=== PATIENT | male | born 1975 | race Caucasian/White ===

== ENCOUNTER 2017-11-08 19:50 | Inpatient (IN) | payer OTHER ==
[~2017-11-08] VITALS: Ht 177.8 cm; Wt 63.4 kg
[2017-11-08 19:54] VITALS: BP 73/51; PULSE 82; RESP 22; O2SAT 100
[2017-11-08] MEDS ORDERED: ONDANSETRON HCL 4 MG/2 ML VIAL IV ONE (20:15)
[2017-11-08] MEDS ORDERED: SODIUM CHLOR 0.9% 1000 ML INJ 1,000 ML IV ONE ×7 (20:15→23:12)
--- NOTE | 2017-11-08 20:24 | PD ---
HPI Chief Complaint: GI Complaint Time Seen by Provider: 20:07 Travel History International Travel<30 days: No Contact w/Intl Traveler<30days: No History of Present Illness HPI The patient is a 41 year old male who presents to the [facility] emergency department with a history of difficulty walking, generalized weakness that began earlier today. The patient arrives out in triage with a blood pressure systolic in the 70s. The patient was emergently brought back. According to the patient's mother who the patient resides with the patient has not been well since July. She reports that he was seen at another emergency department related to back and hip pain at that time. The patient at that time was also diagnosed with a fecal impaction and severe constipation. He has been since then seen by a mold burner. He was placed on a bowel regimen to help with the constipation, however his mother reports that he's been having difficulty maintaining it. The patient since July has been incontinent of stool and intermittently incontinent of urine. The stool is brown in color. They deny any mucus or blood being in the stool. The patient unfortunately is a poor historian. The patient's history is obtained mainly from his mother. She reports that he has a history of being diagnosed with a nerve problem involving the right leg. She reports that she was told that this stems from his back. She reports that today he's had increasing pain down into his right leg. She reports that since Tuesday he has had swelling of the right leg. He reports having abdominal pain down in bilateral lower quadrants of the abdomen. He reports having nausea. They deny him having any known recent fevers, worsening cough or congestion, neck pain, chest pain, shortness of breath, weakness of his upper extremities, numbness or tingling of his upper extremities. The patient does however report having weakness of bilateral lower extremities with pain/sharp pains that shoot down into the right leg. 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 Past Surgical History Narrative Surgical The patient's past surgical history is reportedly none. Social History Alcohol Use: No Tobacco Use: Yes (one pack per day) Substance Use: No (he denies any history of IV drug use) Allergies-Medications (Allergen,Severity, Reaction): Coded Allergies: diphenhydramine (Verified Adverse Reaction, Unknown, 11/08/17) Reported Meds & Prescriptions Reported Meds & Active Scripts Active Reported Hydroxyzine HCl 50 Mg Tab 50 Mg PO BID Propranolol (Propranolol HCl) 20 Mg Tab 20 Mg PO Q12HR Divalproex DR (Divalproex Sodium) 500 Mg Tabdr 500 Mg PO BID Risperidone 3 Mg Tab 3 Mg PO DAILY Depo injections of Haldol monthly Review of Systems Except as stated in HPI: all other systems reviewed are Neg General / Constitutional: No: Fever Eyes: No: Visual changes HENT: No: Headaches, Congestion Cardiovascular: No: Chest Pain or Discomfort Respiratory: No: Cough, Shortness of Breath Gastrointestinal: Positive: Nausea, Diarrhea, Abdominal Pain, No: Vomiting Genitourinary: Positive: Incontinence (of stool and urine), No: Urgency, Frequency, Dysuria Musculoskeletal: Positive: Myalgias, Arthralgias, Edema, Pain Skin: No Rash Neurologic: Positive: Weakness (weakness and bilateral lower extremity), Paresthesia, No: Focal Abnormalities, Change in Mentation, Slurred Speech, Sensory Disturbance Psychiatric: No: Depression Endocrine: No: Polydipsia Hematologic/Lymphatic: No: Easy Bruising Physical Exam Narrative General: The patient is a pale appearing, well-developed, thin appearing male with generalized weakness on arrival back to the room. The patient is disheveled appearing and is incontinent of stool. Head and Neck exam: Head is normocephalic atraumatic. Eyes: EOMI, pupils are equal round and reactive to light. Nose: Midline septum with pink mucous membranes Mouth: Dentition unremarkable. Dry mucus membranes. Posterior oropharynx is not erythematous. No tonsillar hypertrophy. Uvula midline. Airway patent. Neck: No palpable lymphadenopathy. No nuchal rigidity. No thyromegaly. Cardiovascular: Regular rate and rhythm without murmurs, gallops, or rubs. Lungs: Clear to auscultation bilaterally. No wheezes, rhonchi, or rales. Abdomen: Soft, with tenderness on palpation in bilateral lower quadrants of the abdomen in the suprapubic area. No other tenderness on palpation of the other quadrants of the abdomen. No focal tenderness on palpation over McBurney's point. Negative Whatley's sign. Decreased bowel sounds are audible. No guarding, rebound, or rigidity. Extremities: No clubbing or cyanosis. The patient has 2+ pitting edema of the right lower extremity. Trace edema of the left lower extremity. The patient reports calf tenderness on palpation. Patient's compartments are soft. There is no erythema. The patient has diffuse swelling of the leg from the thigh down. 2+ pulses in all 4 extremities. Back: No spinous process tenderness to palpation. No costovertebral angle tenderness to palpation. Neurologic Exam: Cranial nerve II through XII are intact, strength is 5 over 5 in bilateral upper extremities, 4 over 5 in bilateral lower extremities. The patient reports having diminished sensation of the right lower extremity. Otherwise sensory testing is intact. Skin Exam: No rash noted. Intact skin that is warm and dry. RECTAL EXAM: Stool is brown in color. No palpable fecal impaction was noted. Decreased rectal tone was noted. Data Data Last Documented VS Vital Signs Date Time Temp Pulse Resp B/P (MAP) Pulse Ox O2 Delivery O2 Flow Rate FiO2 11/08/17 22:00 81 19 80/45 (57) 100 Room Air Orders Orders Electrocardiogram (11/08/17 20:12) Complete Blood Count With Diff (11/08/17 20:12) Comprehensive Metabolic Panel (11/08/17 20:12) Ckmb (Isoenzyme) Profile (11/08/17 20:12) Troponin I (11/08/17 20:12) B-Type Natriuretic Peptide (11/08/17 20:12) Prothrombin Time / Inr (Pt) (11/08/17 20:12) Act Partial Throm Time (Ptt) (11/08/17 20:12) Blood Culture (11/08/17 20:12) C-Reactive Protein (Crp) (11/08/17 20:12) Lipase (11/08/17 20:12) Urinalysis - C+S If Indicated (11/08/17 20:12) Westergren Sedimentation Rate (11/08/17 20:12) Magnesium (Mg) (11/08/17 20:12) Chest, Single Ap (11/08/17 20:12) Ct Abd/Pel W Iv Contrast(Rout) (11/08/17 20:12) Iv Access Insert/Monitor (11/08/17 20:12) Ecg Monitoring (11/08/17 20:12) Drug Screen, Random Urine (11/08/17 20:12) Alcohol (Ethanol) (11/08/17 20:12) Sodium Chlor 0.9% 1000 Ml Inj (Ns 1000 M (11/08/17 20:15) Sodium Chlor 0.9% 1000 Ml Inj (Ns 1000 M (11/08/17 20:15) Ondansetron Inj (Zofran Inj) (11/08/17 20:15) Us Leg Venous Doppler (11/08/17 20:12) Lactic Acid Sepsis Protocol (11/08/17 20:33) Sodium Chlor 0.9% 1000 Ml Inj (Ns 1000 M (11/08/17 21:12) Sodium Chlor 0.9% 1000 Ml Inj (Ns 1000 M (11/08/17 21:12) Sodium Chlor 0.9% 1000 Ml Inj (Ns 1000 M (11/08/17 21:12) Piperacil-Tazo 3.375 Gm Premix (Zosyn 3. (11/08/17 21:30) Vancomycin Inj (Vancomycin Inj) (11/08/17 21:30) Urinary Catheter Insert/Apply (11/08/17 21:31) Sodium Chlor 0.9% 1000 Ml Inj (Ns 1000 M (11/08/17 22:15) Mri L Spine W&W/O Contrast (11/08/17 ) Mri T Spine W & W/O Contrast (11/08/17 ) Admit Order (Ed Use Only) (11/08/17 22:38) Labs Laboratory Tests Test 11/08/17 20:00 11/08/17 20:03 11/08/17 21:45 Lactic Acid Level 9.1 mmol/L White Blood Count 15.8 TH/MM3 Red Blood Count 3.40 MIL/MM3 Hemoglobin 9.0 GM/DL Hematocrit 27.9 % Mean Corpuscular Volume 82.1 FL Mean Corpuscular Hemoglobin 26.6 PG Mean Corpuscular Hemoglobin Concent 32.4 % Red Cell Distribution Width 18.0 % Platelet Count 473 TH/MM3 Mean Platelet Volume 7.0 FL Neutrophils (%) (Auto) 91.0 % Lymphocytes (%) (Auto) 1.8 % Monocytes (%) (Auto) 6.6 % Eosinophils (%) (Auto) 0.3 % Basophils (%) (Auto) 0.3 % Neutrophils # (Auto) 14.4 TH/MM3 Lymphocytes # (Auto) 0.3 TH/MM3 Monocytes # (Auto) 1.1 TH/MM3 Eosinophils # (Auto) 0.0 TH/MM3 Basophils # (Auto) 0.1 TH/MM3 CBC Comment AUTO DIFF Differential Total Cells Counted 100 Neutrophils % (Manual) 60 % Band Neutrophils % 28 % Lymphocytes % 3 % Monocytes % 5 % Neutrophils # (Manual) 14.5 TH/MM3 Metamyelocytes 4 % Differential Comment FINAL DIFF MANUAL Toxic Granulation 1+ Toxic Vacuolation PRESENT Dohle Bodies PRESENT Platelet Estimate HIGH Platelet Morphology Comment NORMAL Spherocytes 1+ Acanthocytes OCC Erythrocyte Sedimentation Rate 71 mm/hr Prothrombin Time 12.6 SEC Prothromb Time International Ratio 1.2 RATIO Activated Partial Thromboplast Time 30.0 SEC Blood Urea Nitrogen 27 MG/DL Creatinine 0.96 MG/DL Random Glucose 72 MG/DL Total Protein 6.3 GM/DL Albumin 1.6 GM/DL Calcium Level 8.9 MG/DL Magnesium Level 2.2 MG/DL Alkaline Phosphatase 116 U/L Aspartate Amino Transf (AST/SGOT) 30 U/L Alanine Aminotransferase (ALT/SGPT) 15 U/L Total Bilirubin 0.3 MG/DL Sodium Level 125 MEQ/L Potassium Level 5.0 MEQ/L Chloride Level 85 MEQ/L Carbon Dioxide Level 25.4 MEQ/L Anion Gap 15 MEQ/L Estimat Glomerular Filtration Rate 87 ML/MIN Total Creatine Kinase 59 U/L Troponin I LESS THAN 0.02 NG/ML C-Reactive Protein 31.00 MG/DL B-Type Natriuretic Peptide 199 PG/ML Lipase 43 U/L Ethyl Alcohol Level LESS THAN 3 MG/DL Urine Color YELLOW Urine Turbidity CLEAR Urine pH 6.5 Urine Specific [place] 1.010 Urine Protein NEG mg/dL Urine Glucose (UA) NEG mg/dL Urine Ketones NEG mg/dL Urine Occult Blood NEG Urine Nitrite NEG Urine Bilirubin NEG Urine Urobilinogen 4.0 MG/DL Urine Leukocyte Esterase NEG Urine RBC LESS THAN 1 /hpf Urine WBC LESS THAN 1 /hpf Urine Squamous Epithelial Cells 3 /hpf Microscopic Urinalysis Comment CULT NOT INDICATED Urine Opiates Screen NEG Urine Barbiturates Screen NEG Urine Amphetamines Screen NEG Urine Benzodiazepines Screen NEG Urine Cocaine Screen NEG Urine Cannabinoids Screen POS MDM Medical Decision Making Medical Screen Exam Complete: Yes Emergency Medical Condition: Yes Medical Record Reviewed: Yes Interpretation(s) Last Impressions Lower Extremity Ultrasound 11/08/172011 Signed Impressions: Service Date/Time: Wednesday, November 08, 2017 20:41 - CONCLUSION: 1. Negative for deep venous thrombosis. There are mildly enlarged right inguinal lymph nodes. Bertrand Smalls MD Chest X-Ray 11/08/172011 Signed Impressions: Service Date/Time: Wednesday, November 08, 2017 21:10 - CONCLUSION: 1. Subsegmental airspace disease right lung base. Finding may represent a small bronchopneumonia. Bertrand Smalls MD Abdomen/Pelvis CT 11/08/172011 Signed Impressions: Service Date/Time: Wednesday, November 08, 2017 22:54 - CONCLUSION: 1. Abnormal appearance of the soft tissues of the proximal thigh and gluteal region with fluid and gas tracking between the rectus muscles and the anterior thigh muscles. No focal abnormal areas of enhancement. The combination of fluid and gas suggests either an infectious or necrotic process. 2. Nonobstructing small calcified stone mid pole left kidney and multiple left renal cysts. 3. Small bilateral pleural effusions. Jace Bird MD Thoracic Spine MRI 11/08/17 0000 Signed Impressions: Service Date/Time: Wednesday, November 08, 2017 22:01 - CONCLUSION: 1. Small bilateral pleural effusions. 2. No signal abnormalities in the thoracic vertebral bodies and no evidence of focal disc disease. Jace Bird MD Lumbar Spine MRI 11/08/17 0000 Signed Impressions: Service Date/Time: Wednesday, November 08, 2017 22:01 - CONCLUSION: 1. No evidence of lumbar disc disease. 2. Soft tissue abnormality about the right gluteal region suggesting abscess with T2 prolongation and contrast enhancement ; this is incompletely included in the [id number] of the exam. 3. There is also abnormal signal within the marrow of the sacral and coccygeal marrow including contrast enhancement suggesting that the right thigh and gluteal abnormality may extend intraosseous, possibly osteomyelitis. Jace Bird MD Differential Diagnosis Sepsis, versus cord compression, versus fecal impaction, versus cauda equina syndrome, versus epidural abscess, versus radiculopathy, versus colitis, versus ileus Narrative Course During the course of the patients emergency department visit, the patients history, examination, and differential diagnosis were reviewed with the patient. The patient was placed on a cardiac monitor technician with oximetry and frequent blood pressure monitoring. The patient had IV access obtained and blood work sent for analysis. A CT scan of the abdomen and pelvis, chest x-ray, MRI of the T-spine and lumbar spine have been ordered. An EKG was done on arrival that shows a sinus rhythm heart rate of 80, no acute ST segment elevation, QRS duration is 92 ms, QTC 389 ms. a Chaidez catheter was placed to gravity and the patient had approximately 1 L of urine out suggestive of urinary retention. The patient was initially provided normal saline 2 L wide open. The patient was started on broad-spectrum antibiotic after blood cultures and a lactic acid were sent for analysis. The patients laboratory studies were reviewed and remarkable for a white count of 15.8, hemoglobin 9, platelets 473 with 60 neutrophils, 28 bands, CMP is remarkable for a sodium of 125, chloride 85, BUN 27, glucose 72, cardiac enzymes within normal limits, BNP 199, total protein 6.3, albumin 1.6, lipase 43 , lactic acid 9.1. PT 12.6, INR 1.2, PTT 30, urinalysis is unremarkable. Urine drug screen is positive for cannabinoids, alcohol level less than 3. Radiology studies were reviewed and remarkable for a chest x-ray that shows subsegmental airspace disease right lung base, findings may represent a small bronchopneumonia. An ultrasound of the right lower extremity showed no evidence of DVT, mildly enlarged right inguinal lymph nodes. CT scan of the abdomen and pelvis shows an abnormal appearance of the soft tissues of the proximal thigh and gluteal region with fluid and gas tracking between the rectus muscles in the anterior thigh muscles. No focal abnormal areas of enhancement. The combination of fluid and gas suggest either an infectious or necrotic process. A call was emergently placed out to the general surgeon, Dr. Campos. Please see physician communication regarding this. T-spine MRI shows small bilateral pleural effusions no signal abnormalities in the thoracic vertebral bodies and no evidence of focal disc disease. A lumbar spine MRI reveals no evidence of lumbar disc disease, however soft tissue abnormality about the right gluteal region suggesting abscess with T2 prolongation and contrast enhancement. This is incompletely included in the field of view of the exam there is also abnormal signal within the marrow of the sacral and coccygeal marrow including contrast enhancement suggesting that the right thigh and gluteal abnormality may extend intraosseous possibly osteomyelitis. The source of the infection is difficult to pinpoint, however the patient does receive Depo injections of Haldol, this could be the possible source of the deep injection related to his last Haldol intramuscular injection. The patients results were discussed with the patient, including the plan of care. I explained that further testing and/ or monitoring is indicated based on the patients history, examination, and/ or laboratory findings. Therefore, I recommended admission for additional evaluation. The patient expressed understanding and was agreeable with this plan. The patient was admitted to the hospital in critical condition and sent to a bed under the care of the salary and wage administrator service. Critical Care Narrative Aggregate critical care time was 45 minutes. Time to perform other separately billable procedures was not included in the critical care time. My time did not include minutes spent treating any other patients simultaneously or on activities that did not directly contribute to the patient's treatment. The services I provided to this patient were to treat and/or prevent clinically significant deterioration that could result in: Cardiovascular collapse related to sepsis, versus fluid overload from crystalloid resuscitation, versus progression of infection I provided critical care services requiring my management, as noted below: Chart data review, documentation time, medication orders and management, vital sign assessments/reviewing monitor data, ordering and reviewing lab tests, ordering and interpreting/reviewing x-rays and diagnostic studies, care of the patient and discussion of the patient with the admitting physicians. Sepsis Criteria SIRS Criteria (2 or more): WBC > 72700, < 4000 or > 10% bands Physician Communication Physician Communication The patient's case including history, pertinent physical examination findings, and laboratory studies were discussed with Dr. Cruz. It was agreed that the [facility] would [facility] When the CT scan of the abdomen and pelvis revealed soft tissue changes in the right leg with fluid and gas tracking between the rectus muscle in the anterior thigh muscles, call was placed out to to update him regarding these results at 0092. He agreed with the plan to consult general surgery urgently. I then spoke to Dr. Campos regarding my concern about necrotizing fasciitis in this patient at 12:01 AM. He requested that in addition to the vancomycin and Zosyn the patient was placed on, that he also received Flagyl 500 mg IV. Diagnosis Primary Impression: Right leg swelling Additional Impressions: Necrotizing fasciitis Osteomyelitis Qualified Codes: M86.9 - Osteomyelitis, unspecified Admitting Information Admitting Physician Requests: Mar Forman MD Nov 08, 2017 20:24
[2017-11-08] MEDS ORDERED: HYDR50TA94 PO (20:42)
[2017-11-08] MEDS ORDERED: RISP3TAB2 PO (20:42)
[2017-11-08] MEDS ORDERED: PROP20TA3 PO (20:42)
[2017-11-08] MEDS ORDERED: DIVA500T PO (20:42)
[2017-11-08 21:00] VITALS: BP 88/55; PULSE 80; RESP 18; O2SAT 100
[2017-11-08 21:05] LABS: AUTOMATED NEUTROPHIL # 14.4 TH/MM3 (1.8-7.7); BASOPHIL # 0.1 TH/MM3 (0-0.2); BASOPHIL % 0.3 % (0.0-2.0); EOSINOPHIL % 0.3 % (0.0-4.0); HEMATOCRIT 27.9 % (39.0-51.0); LYMPH % 1.8 % (9.0-44.0); LYMPHOCYTE # 0.3 TH/MM3 (1.0-4.8); MEAN CELL VOLUME 82.1 FL (80.0-100.0); MEAN CORPUSCULAR HEMOGLOBIN 26.6 PG (27.0-34.0); MEAN CORPUSCULAR HGB CONC 32.4 % (32.0-36.0); MONO % 6.6 % (0.0-8.0); MONOCYTE # 1.1 TH/MM3 (0-0.9); PLATELET COUNT 473 TH/MM3 (150-450); WHITE BLOOD COUNT 15.8 TH/MM3 (4.0-11.0)
[2017-11-08 21:11] LABS: LACTIC ACID SEPSIS PROTOCOL 9.1 mmol/L (0.4-2.0)
[2017-11-08] MEDS ORDERED: SODIUM CHLOR 0.9% 1000 ML INJ 400 ML IV ONE ×2 (21:12→23:12)
[2017-11-08 21:13] LABS: ALBUMIN 1.6 GM/DL (3.4-5.0); AST (GOT) 30 U/L (15-37); BICARBONATE 25.4 MEQ/L (21.0-32.0); BLOOD UREA NITROGEN 27 MG/DL (7-18); CALCIUM 8.9 MG/DL (8.5-10.1); CHLORIDE 85 MEQ/L (98-107); CREATININE 0.96 MG/DL (0.60-1.30); GLOMERULAR FILTRATION RATE 87 ML/MIN (>89); GLUCOSE,RANDOM 72 MG/DL (74-106); MAGNESIUM 2.2 MG/DL (1.5-2.5); SODIUM (NA) 125 MEQ/L (136-145)
[2017-11-08 21:15] LABS: ALT (GPT) 15 U/L (12-78); INTERNATIONAL NORMALIZED RATIO 1.2 RATIO; PROTHROMBIN TIME - PATIENT 12.6 SEC (9.8-11.6)
[2017-11-08 21:22] LABS: ALKALINE PHOSPHATASE 116 U/L (45-117); TOTAL BILIRUBIN ADULT 0.3 MG/DL (0.2-1.0); TOTAL PROTEIN 6.3 GM/DL (6.4-8.2); TROPONIN I LESS THAN 0.02 NG/ML (0.02-0.05)
--- NOTE | 2017-11-08 21:25 | RADRPT ---
EXAM DATE/TIME: 11/08/2017 20:41 [facility] COMPARISON: No previous studies available for comparison. INDICATIONS : Right leg swelling. MEDICAL HISTORY : Schizophrenia. Bipolar disorder. SURGICAL HISTORY : Unable to access. ENCOUNTER: Initial ACUITY: 1 month PAIN SCORE: 6/10 LOCATION: Right leg. TECHNIQUE: Venous ultrasound of the leg was performed from the inguinal ligament to the proximal calf. Real-redd e, color Doppler and spectral tracing, compression and augmentation techniques were used. FINDINGS: There is normal compressibility of the deep venous system from the inguinal region to the proximal ca lf. No echogenic clot is seen in the lumen of the common femoral, femoral, popliteal, and posterior tibial veins. There is a normal response of the venous system to proximal and distal augmentation an d respiration. CONCLUSION: 1. Negative for deep venous thrombosis. There are mildly enlarged right inguinal lymph nodes. Bertrand Smalls MD on November 08, 2017 at 21:22 Board Certified Radiologist. This report was verified electronically.
[2017-11-08] MEDS ORDERED: VANCOMYCIN 1 GM/200 ML INJ 200 ML IV SCH (21:30)
[2017-11-08] MEDS ORDERED: PIPERACIL-TAZO 3.375 GM PREMIX 50 ML IV SCH (21:30)
[2017-11-08 21:31] LABS: BANDS 28 % (0-6); LYMPHOCYTES 3 % (9-44); METAMYELOCYTES 4 % (0-1); MONOCYTES 5 % (0-8); NEUTROPHIL # MANUAL DIFF 14.5 TH/MM3 (1.8-7.7); POLYS (SEG NEUTROPHILS) 60 % (16-70)
[2017-11-08 21:32] LABS: DOHLE BODIES PRESENT (NONE SEEN); TOXIC GRANULATION 1+ (NORMAL); TOXIC VACUOLATION PRESENT (NONE SEEN)
[2017-11-08 21:33] LABS: ACANTHOCYTES OCC (NORMAL); SPHEROCYTES 1+ (NORMAL)
--- NOTE | 2017-11-08 21:55 | RADRPT ---
EXAM DATE/TIME: 11/08/2017 21:10 [facility] COMPARISON: No previous studies available for comparison. INDICATIONS : COugh. MEDICAL HISTORY : None. SURGICAL HISTORY : None. ENCOUNTER: Initial ACUITY: 1 day PAIN SCORE: 0/10 LOCATION: Bilateral chest FINDINGS: Mild subsegmental air space disease at the right base could represent a small bronchopneumonia. Left lung relatively clear. No effusion. No pneumothorax. CONCLUSION: 1. Subsegmental airspace disease right lung base. Finding may represent a small bronchopneumonia. Bertrand Smalls MD on November 08, 2017 at 21:52 Board Certified Radiologist. This report was verified electronically.
[2017-11-08 22:00] VITALS: BP 80/45; PULSE 81; RESP 19; O2SAT 100
--- NOTE | 2017-11-08 22:14 | EKG ---
Date Performed: 11/08/2017 Time Performed: 20:01:12 PTAGE: 41 years EKG: Sinus rhythm EARLY REPOLARIZATION BORDERLINE ECG NO PREVIOUS TRACING DOCTOR: Lori Barnett Interpretating Date/Time 11/08/2017 22:11:47
[2017-11-08 22:30] LABS: BILIRUBIN, URINE NEG (NEG); BLOOD, URINE NEG (NEG); GLUCOSE,URINE NEG (NEG); KETONE, URINE NEG (NEG); NITRITE,URINE NEG (NEG); PH, URINE 6.5 (5.0-8.5); SQUAMOUS EPITHELIAL CELL URINE 3 /hpf (0-5); URINE COLOR YELLOW (YELLW/STRAW); URINE LEUKOCYTE ESTERASE NEG (NEG)
[2017-11-08 23:00] VITALS: BP 75/47; PULSE 85; RESP 17; O2SAT 100
[2017-11-08] MEDS ORDERED: IOHEXOL 350 MG/ML 10 ML VIAL (for RAD DIAG) IVCONTRAST ONE (23:07)
[2017-11-08] MEDS ORDERED: MISCELLANEOUS NURSING INFORMATION XX SCH (23:15)
[2017-11-08] MEDS ORDERED: ONDANSETRON HCL 4 MG/2 ML VIAL IV PUSH PRN (23:15)
[2017-11-08] MEDS ORDERED: CHLORHEXIDINE GLUCONATE 2 % 1 PACK (2 CLOTHS) TOP PRN (23:15)
[2017-11-08] MEDS: HEPARIN SODIUM - SQ 10,000 UNITS/ML VIAL SQ SCH (23:15)
[2017-11-08] MEDS ORDERED: VANCOMYCIN INJ 1,000 MG in SODIUM CHLOR 0.9% 250 ML INJ 250 ML IV SCH (23:15)
--- NOTE | 2017-11-08 23:25 | HHI.HP ---
[facility] Service Critical Care Medicine Primary Care Physician Black Sanchez, DO Admission Diagnosis Sepsis Diagnosis: Travel History International Travel<30 Days: No Contact w/Intl Traveler <30 Da: No Traveled to Known Affected Are: No History of Present Illness 41 year old male presents for evaluation of difficulty walking, generalized weakness that began earlier today. The patient arrives out in triage with a blood pressure systolic in the 70s. According to the patient's mother he has not been well since July. She reports that he was seen at another emergency department related to back and hip pain at that time. The patient at that time was also diagnosed with a fecal impaction and severe constipation. He has been since then seen by a steam room attendant. He was placed on a bowel regimen to help with the constipation, however his mother reports that he's been having difficulty maintaining it. The patient since July has been incontinent of stool and intermittently incontinent of urine. The stool is brown in color. The patient has a diagnosis of schizoaffective disorder and is a poor historian. His mother reports that he has a history of being diagnosed with a nerve problem involving the right leg and since Tuesday he has had swelling of the right leg. He reports having abdominal pain down in bilateral lower quadrants of the abdomen. He reports having nausea. They deny him having any known recent fevers, worsening cough or congestion, neck pain, chest pain, shortness of breath, weakness of his upper extremities, numbness or tingling of his upper extremities. The patient does however report having weakness of bilateral lower extremities with pain/sharp pains that shoot down into the right leg. The CT scan obtained in the emergency department shows abnormal appearance of the soft tissue of the proximal thigh and the gluteal region with fluid and gas tracking between the rectus muscle in the anterior thigh muscle. The combination of fluid and gas suggest either an infectious or necrotic process. Review of Systems Constitutional: DENIES: Diaphoretic episodes, Fatigue, Fever, Weight gain, Weight loss, Chills, Dizziness, Change in appetite, Night Sweats Endocrine: DENIES: Heat/cold intolerance, Polydipsia, Polyuria, Polyphagia Eyes: DENIES: Blurred vision, Diplopia, Eye inflammation, Eye pain, Vision loss , Photosensitivity, Double Vision Ears, nose, mouth, throat: DENIES: Tinnitus, Hearing loss, Vertigo, Nasal discharge, Oral lesions, Throat pain, Hoarseness, Ear Pain, Running Nose, Epistaxis, Sinus Pain, Toothache, Odynophagia Respiratory: DENIES: Apneas, Cough, Snoring, Wheezing, Hemoptysis, Sputum production, Shortness of breath Cardiovascular: DENIES: Chest pain, Palpitations, Syncope, Dyspnea on Exertion , PND, Lower Extremity Edema, Orthopnea, Claudication Gastrointestinal: COMPLAINS OF: Constipation, Diarrhea, Nausea, Anorexia, DENIES: Abdominal pain, Black stools, Bloody stools, Difficulty Swallowing Genitourinary: COMPLAINS OF: Urinary incontinence, DENIES: Sexual dysfunction, Urinary frequency, Urgency, Hematuria, Dysuria, Nocturia, Penile Discharge, Testicular Pain, Testicular Swelling Musculoskeletal: COMPLAINS OF: Joint pain, Muscle aches, Stiffness, Joint Swelling, DENIES: Back pain, Neck pain Integumentary: DENIES: Abnormal pigmentation, Nail changes, Pruritus, Rash Hematologic/lymphatic: DENIES: Bruising, Lymphadenopathy Immunologic/allergic: DENIES: Eczema, Urticaria Neurologic: COMPLAINS OF: Abnormal gait, Localized weakness, DENIES: Headache, Paresthesias, Seizures, Speech Problems, Tremor, Poor Balance Psychiatric: DENIES: Anxiety, Confusion, Mood changes, Depression, Hallucinations, Agitation, Suicidal Ideation, Homicidal Ideation, Delusions Past Family Social History Allergies: Coded Allergies: diphenhydramine (Verified Adverse Reaction, Unknown, 11/08/17) Past Medical History Neuropathy involving the right leg Schizoaffective disorder, Depressions Anxiety Past Surgical History No significant past surgical history Reported Medications Reported Meds & Active Scripts Active Reported Hydroxyzine HCl 50 Mg Tab 50 Mg PO BID Propranolol (Propranolol HCl) 20 Mg Tab 20 Mg PO Q12HR Divalproex DR (Divalproex Sodium) 500 Mg Tabdr 500 Mg PO BID Risperidone 3 Mg Tab 3 Mg PO DAILY Active Ordered Medications Current Medications Medications (Trade) Dose Ordered Sig/Mega Route PRN Reason Start Time Stop Time Status Last Admin Dose Admin Vancomycin/Sodium Chloride 200 ml @ 200 mls/hr CLASSROOM COORDINATOR IV 11/08/17 21:30 11/11/17 21:29 Divalproex Sodium (Depakote Dr) 500 mg BID PO 11/09/17 09:00 Hydroxyzine HCl (Atarax) 50 mg BID PO 11/09/17 09:00 Risperidone (risperDAL) 3 mg DAILY PO 11/09/17 09:00 Sodium Chloride (NS Flush) 2 ml UNSCH PRN IV FLUSH FLUSH AFTER USING IV ACCESS 11/08/17 23:15 Sodium Chloride (NS Flush) 2 ml BID IV FLUSH 11/09/17 09:00 Acetaminophen (Tylenol) 650 mg Q6H PRN PO PAIN 1-10 AND/OR FEVER >101F 11/08/17 23:15 Famotidine (Pepcid Inj) 20 mg Q12HR IV PUSH 11/09/17 09:00 Ondansetron HCl (Zofran Inj) 4 mg Q6H PRN IV PUSH NAUSEA OR VOMITING 11/08/17 23:15 Temazepam (Restoril) 15 mg HS PRN PO INSOMNIA 11/08/17 23:15 Albuterol/ Ipratropium (Duoneb Neb) 1 ampule Q2HR NEB PRN INH WHEEZING 11/08/17 23:15 Heparin Sodium (Porcine) (Heparin Inj) 5,000 units Q8H SQ 11/08/17 23:15 Miscellaneous Information 1 Q361D XX 11/08/17 23:15 11/08/17 01:00 Chlorhexidine Gluconate (Chlorhexidine 2% Cloth) 3 pack Taper DAILY@04 TOP 11/09/17 04:00 11/05/18 03:59 Chlorhexidine Gluconate (Chlorhexidine 2% Cloth) 3 pack UNSCH PRN TOP HYGIENIC CARE 11/08/17 23:15 Piperacillin Sod/ Tazobactam Sod 100 ml @ 200 mls/hr Q6H IV 11/09/17 03:00 11/09/17 03:00 Vancomycin HCl 1000 mg/Sodium Chloride 250 ml @ 250 mls/hr Q12H IV 11/09/17 00:00 11/09/17 00:12 Family History No family history significant for coronary artery disease or malignancy Social History Alcohol Use: No Tobacco Use: Yes (one pack per day) Substance Use: No (he denies any history of IV drug use) Physical Exam Vital Signs Vital Signs Date Time Temp Pulse Resp B/P (MAP) Pulse Ox O2 Delivery O2 Flow Rate FiO2 11/08/17 20:00 19 11/08/17 19:54 82 22 73/51 (58) 100 Room Air Physical Exam GENERAL: Pale and ill-appearing young gentleman SKIN: Warm and dry. HEAD: Normocephalic. EYES: No scleral icterus. No injection or drainage. NECK: Supple, trachea midline. No JVD or lymphadenopathy. CARDIOVASCULAR: Regular rate and rhythm without murmurs, gallops, or rubs. RESPIRATORY: Breath sounds equal bilaterally. No accessory muscle use. GASTROINTESTINAL: Abdomen soft, non-tender, nondistended. MUSCULOSKELETAL: No cyanosis, or edema. 2+ pitting edema of the right lower extremity. Trace edema of the left lower extremity. The patient reports calf tenderness on palpation. Patient's compartments are soft. There is no erythema. The patient has diffuse swelling of the leg from the thigh down. 2+ pulses in all 4 extremities. BACK: Nontender without obvious deformity. NEURO EXAM: GCS: 15 Mental Status: The patient is alert and oriented to person, place, and time with normal speech. Laboratory Laboratory Tests Test 11/08/17 20:00 11/08/17 20:03 11/08/17 21:45 11/08/17 23:15 Lactic Acid Level 9.1 White Blood Count 15.8 Red Blood Count 3.40 Hemoglobin 9.0 Hematocrit 27.9 Mean Corpuscular Volume 82.1 Mean Corpuscular Hemoglobin 26.6 Mean Corpuscular Hemoglobin Concent 32.4 Red Cell Distribution Width 18.0 Platelet Count 473 Mean Platelet Volume 7.0 Neutrophils (%) (Auto) 91.0 Lymphocytes (%) (Auto) 1.8 Monocytes (%) (Auto) 6.6 Eosinophils (%) (Auto) 0.3 Basophils (%) (Auto) 0.3 Neutrophils # (Auto) 14.4 Lymphocytes # (Auto) 0.3 Monocytes # (Auto) 1.1 Eosinophils # (Auto) 0.0 Basophils # (Auto) 0.1 CBC Comment AUTO DIFF Differential Total Cells Counted 100 Neutrophils % (Manual) 60 Band Neutrophils % 28 Lymphocytes % 3 Monocytes % 5 Neutrophils # (Manual) 14.5 Metamyelocytes 4 Differential Comment FINAL DIFF MANUAL Toxic Granulation 1+ Toxic Vacuolation PRESENT Dohle Bodies PRESENT Platelet Estimate HIGH Platelet Morphology Comment NORMAL Spherocytes 1+ Acanthocytes OCC Erythrocyte Sedimentation Rate 71 Prothrombin Time 12.6 Prothromb Time International Ratio 1.2 Activated Partial Thromboplast Time 30.0 Blood Urea Nitrogen 27 Creatinine 0.96 Random Glucose 72 Total Protein 6.3 Albumin 1.6 Calcium Level 8.9 Magnesium Level 2.2 Alkaline Phosphatase 116 Aspartate Amino Transf (AST/SGOT) 30 Alanine Aminotransferase (ALT/SGPT) 15 Total Bilirubin 0.3 Sodium Level 125 Potassium Level 5.0 Chloride Level 85 Carbon Dioxide Level 25.4 Anion Gap 15 Estimat Glomerular Filtration Rate 87 Total Creatine Kinase 59 Troponin I LESS THAN 0.02 C-Reactive Protein 31.00 B-Type Natriuretic Peptide 199 Lipase 43 Ethyl Alcohol Level LESS THAN 3 Urine Color YELLOW Urine Turbidity CLEAR Urine pH 6.5 Urine Specific Ashley 1.010 Urine Protein NEG Urine Glucose (UA) NEG Urine Ketones NEG Urine Occult Blood NEG Urine Nitrite NEG Urine Bilirubin NEG Urine Urobilinogen 4.0 Urine Leukocyte Esterase NEG Urine RBC LESS THAN 1 Urine WBC LESS THAN 1 Urine Squamous Epithelial Cells 3 Microscopic Urinalysis Comment CULT NOT INDICATED Urine Opiates Screen NEG Urine Barbiturates Screen NEG Urine Amphetamines Screen NEG Urine Benzodiazepines Screen NEG Urine Cocaine Screen NEG Urine Cannabinoids Screen POS Date/Time Source Procedure Growth Status 11/08/17 21:35 Blood Peripheral Aerobic Blood Culture Pending Received 11/08/17 21:35 Blood Peripheral Anaerobic Blood Culture Pending Received Result Diagram: 11/08/17200211/08/172002 Imaging Last 24 hours Impressions Lower Extremity Ultrasound 11/08/172011 Signed Impressions: Service Date/Time: Wednesday, November 08, 2017 20:41 - CONCLUSION: 1. Negative for deep venous thrombosis. There are mildly enlarged right inguinal lymph nodes. Bertrand Smalls MD Chest X-Ray 11/08/172011 Signed Impressions: Service Date/Time: Wednesday, November 08, 2017 21:10 - CONCLUSION: 1. Subsegmental airspace disease right lung base. Finding may represent a small bronchopneumonia. Bertrand Smalls MD Abdomen/Pelvis CT 11/08/172011 Signed Impressions: Service Date/Time: Wednesday, November 08, 2017 22:54 - CONCLUSION: 1. Abnormal appearance of the soft tissues of the proximal thigh and gluteal region with fluid and gas tracking between the rectus muscles and the anterior thigh muscles. No focal abnormal areas of enhancement. The combination of fluid and gas suggests either an infectious or necrotic process. 2. Nonobstructing small calcified stone mid pole left kidney and multiple left renal cysts. 3. Small bilateral pleural effusions. Jace Bird MD Septic Shock Reassessment Septic shock perfusion: reassessment completed Caprini VTE Risk Assessment Caprini VTE Risk Assessment: Mod/High Risk (score >= 2) Caprini Risk Assessment Model Point Value = 1 Point Value = 2 Point Value = 3 Point Value = 5 Age 41-60 Minor surgery BMI > 25 kg/m2 Swollen legs Varicose veins or History of unexplained or recurrent spontaneous Oral contraceptives or hormone replacement Sepsis (< 1 month) Serious lung disease, including pneumonia (< 1 month) Abnormal pulmonary function Acute myocardial infarction Congestive heart failure (< 1 month) History of inflammatory bowel disease Medical patient at bed rest Age 61-74 Arthroscopic surgery Major open surgery (> 45 min) Laparoscopic surgery (> 45 min) Malignancy Confined to bed (> 72 hours) Immobilizing plaster cast Central venous access Age >= 75 History of VTE Family history of VTE Factor V Leiden Prothrombin [id number] Lupus anticoagulant Anticardiolipin antibodies Elevated serum homocysteine Heparin-induced thrombocytopenia Other congenital or acquired thrombophilia Stroke (< 1 month) Elective arthroplasty Hip, pelvis, or leg fracture Acute spinal cord injury (< 1 month) Prophylaxis Regimen Total Risk Factor Score Risk Level Prophylaxis Regimen 0-1 Low Early ambulation 2 Moderate Order ONE of the following: *Sequential Compression Device (SCD) *Heparin 5000 units SQ BID 3-4 Higher Order ONE of the following medications: *Heparin 5000 units SQ TID *Enoxaparin/Lovenox 40 mg SQ daily (WT < 150 kg, CrCl > 30 mL/min) *Enoxaparin/Lovenox 30 mg SQ daily (WT < 150 kg, CrCl > 10-29 mL/min) *Enoxaparin/Lovenox 30 mg SQ BID (WT < 150 kg, CrCl > 30 mL/min) AND/OR *Sequential Compression Device (SCD) 5 or more Highest Order ONE of the following medications: *Heparin 5000 units SQ TID (Preferred with Epidurals) *Enoxaparin/Lovenox 40 mg SQ daily (WT < 150 kg, CrCl > 30 mL/min) *Enoxaparin/Lovenox 30 mg SQ daily (WT < 150 kg, CrCl > 10-29 mL/min) *Enoxaparin/Lovenox 30 mg SQ BID (WT < 150 kg, CrCl > 30 mL/min) AND *Sequential Compression Device (SCD) Assessment and Plan Assessment and Plan Gluteal muscle and thigh abscess/necrosis - Broad-spectrum antibiotic - Follow-up cultures - General surgery consultation for debridement - ID consult for severe sepsis Hyponatremia - Severe dehydration - IV fluids resuscitation per sepsis protocol - Monitor trend Schizoaffective disorder - Depakote - Risperidone Anemia - Transfuse for hemoglobin less than 7 - Monitor trend Anxiety -Hydroxyzine DVT GI prophylaxis - Teds SCDs - Subcutaneous heparin - Pepcid Critical Care: The total critical care time was 35 minutes. Time to perform other separately billable procedures was not included in the critical care time. Cy Cruz MD Nov 08, 2017 11:25 pm
[2017-11-08] MEDS ORDERED: GADODIAMIDE PF 287 MG/ML 5 ML VIAL (for RAD MRI) IV PUSH ONE (23:27)
--- NOTE | 2017-11-08 23:52 | RADRPT ---
EXAM DATE/TIME: 11/08/2017 22:54 This report includes an Addendum and supersedes previous reports for this exam. [facility] COMPARISON: No previous studies available for comparison. INDICATIONS : Bilateral lower quadrant pain with nausea. IV CONTRAST: 85 cc Omnipaque 350 (iohexol) IV ORAL CONTRAST: No oral contrast ingested. RADIATION DOSE: 6.05 CTDIvol (mGy) MEDICAL HISTORY : None SURGICAL HISTORY : None. ENCOUNTER: Initial ACUITY: 1 week PAIN SCALE: 9/10 LOCATION: Bilateral lower quadrant TECHNIQUE: Volumetric scanning of the abdomen and pelvis was performed. Using automated exposure control and ad justment of the mA and/or kV according to patient size, radiation dose was kept as low as reasonably achievable to obtain optimal diagnostic quality images. DICOM format image data is available electro nically for review and comparison. FINDINGS: LOWER LUNGS: The visualized lower lungs are clear. Small bilateral pleural effusions. LIVER: Homogeneous density without lesion. There is no dilation of the biliary tree. No calcified gallston es. SPLEEN: Normal size without lesion. PANCREAS: Within normal limits. KIDNEYS: Symmetric size. No evidence of hydronephrosis. There are 3 cysts in the left kidney, mid and lower pole, the largest of which measures 2.0 cm. There is a solitary 4 mm calcification in left midpole c ollecting system without evidence of hydronephrosis. ADRENAL GLANDS: Within normal limits. VASCULAR: There is no aortic aneurysm. BOWEL/MESENTERY: No dilated loops of small or large bowel. No air-fluid levels and small bowel. ABDOMINAL WALL: Within normal limits. RETROPERITONEUM: There is no lymphadenopathy. BLADDER: Chaidez catheter in nondistended bladder. REPRODUCTIVE: Within normal limits. INGUINAL: There is no lymphadenopathy or hernia. MUSCULOSKELETAL: Osseous structures are grossly intact. There is an abnormal appearance the soft tissues in the proxi mal right thigh and extending to the superior right gluteal region with multiple collections of deep soft tissue gas, moderate amount of fluid tracking between the gluteus muscles, measuring up to 4 cm in width. The overall size of the proximal thigh is significantly larger on right than on the left. CONCLUSION: 1. Abnormal appearance of the soft tissues of the proximal thigh and gluteal region with fluid and ga s tracking between the rectus muscles and the anterior thigh muscles. No focal abnormal areas of enh ancement. The combination of fluid and gas suggests either an infectious or necrotic process. 2. Nonobstructing small calcified stone mid pole left kidney and multiple left renal cysts. 3. Small bilateral pleural effusions. Jace Bird MD on November 08, 2017 at 23:45 Board Certified Radiologist. This report was verified electronically. ADDENDUM: Not mentioned above is prominence of the rectum with AP dimension of the rectum measuring 8 cm sugges ting possible mass. There is inhomogeneous density to the wall of the actual thickness the wall jeffrey ot be assessed due to absence of intraluminal contrast. There is loss of visualization of the presac ral fat on images #65 through 71. No distention of the proximal colon with normal diameter from the cecum to the proximal sigmoid. Jace Bird MD on December 04, 2017 at 7:30 Board Certified Radiologist. This report was verified electronically.
[2017-11-09] VITALS (16 sets, daily range): BP systolic 90–101; BP diastolic 50–57; PULSE 89–106; RESP 17–29; TEMP 98.1–99.3; O2SAT 93–100
--- NOTE | 2017-11-09 00:03 | RADRPT ---
EXAM DATE/TIME: 11/08/2017 22:01 [facility] COMPARISON: MRI THORACIC SPINE W & W/O CONTRAST, November 08, 2017, 22:01. INDICATIONS : Abscess. CONTRAST: 15 cc Omniscan (gadodiamide) IV MEDICAL HISTORY : None. SURGICAL HISTORY : None. ENCOUNTER: Subsequent ACUITY: 1 week PAIN SCORE: 8/10 LOCATION: Lower back. TECHNIQUE: Multiplanar multisequence MRI of the lumbar spine was performed with and without contrast. FINDINGS: The most caudal appearing lumbar vertebra is numbered as L5. Vertebral body height is maintained. T here is normal hydration of the lumbar discs and preservation of disc height. The conus is at the le esther of T12-L1. Cyst in the medial pole of the left kidney measures 1.7 cm and demonstrates uniform T 2 prolongation. At the periphery of the field of view the axial images, there is soft tissue abnormality on the right side lateral to the iliac wing which includes prominent fluid and areas of signal void characteristi c of abscess with fluid and gas. There is also abnormal signal seen within the marrow of the sacral vertebral bodies and there is some prominent enhancement in the pre-sacral soft tissues. On the post contrast sagittal images, there is also a fairly uniform pattern of enhancement in the marrow of the mid sacral and coccygeal marrow and some minimal T2 prolongation. T12-L1: The thecal sac has a normal diameter. No evidence of disc bulge or protrusion. The neural foramina are patent bilaterally. L1-L2: The thecal sac has a normal diameter. No evidence of disc bulge or protrusion. The neural foramina are patent bilaterally. L2-L3: The thecal sac has a normal diameter. No evidence of disc bulge or protrusion. The neural foramina are patent bilaterally. L3-L4: The thecal sac has a normal diameter. No evidence of disc bulge or protrusion. The neural foramina are patent bilaterally. L4-L5: The thecal sac has a normal diameter. No evidence of disc bulge or protrusion. The neural foramina are patent bilaterally. L5-S1: The thecal sac has a normal diameter. No evidence of disc bulge or protrusion. The neural foramina are patent bilaterally. CONCLUSION: 1. No evidence of lumbar disc disease. 2. Soft tissue abnormality about the right gluteal region suggesting abscess with T2 prolongation and contrast enhancement; this is incompletely included in the [id number] of the exam. 3. There is also abnormal signal within the marrow of the sacral and coccygeal marrow including contr ast enhancement suggesting that the right thigh and gluteal abnormality may extend intraosseous, poss ibly osteomyelitis. Jace Bird MD on November 08, 2017 at 23:55 Board Certified Radiologist. This report was verified electronically.
[2017-11-09] MEDS: VANCOMYCIN INJ 1,000 MG in SODIUM CHLOR 0.9% 250 ML INJ 250 ML IV SCH ×2 (00:12→11:55)
[2017-11-09] MEDS ORDERED: metroNIDAZOLE 500 MG INJ 100 ML IV ONE (00:15)
--- NOTE | 2017-11-09 00:16 | RADRPT ---
EXAM DATE/TIME: 11/08/2017 22:01 [facility] COMPARISON: No previous studies available for comparison. INDICATIONS : Abscess. CONTRAST: 15 cc Omniscan (gadodiamide) IV MEDICAL HISTORY : None. SURGICAL HISTORY : None. ENCOUNTER: Subsequent ACUITY: 1 week PAIN SCORE: 8/10 LOCATION: Thoracic spine. TECHNIQUE: Multiplanar multisequence MRI of the thoracic spine was performed. FINDINGS: There is motion degradation of the axial noncontrast T1 images. Small bilateral pleural effusions me asuring up to 5 mm in thickness. VERTEBRA: Normal vertebral body height. Homogeneous marrow signal. ALIGNMENT: Normal. CORD: Normal position and configuration. POST CONTRAST: No abnormal areas of contrast enhancement seen. T1-T2: Normal. T2-T3: The thecal sac has a normal diameter. No evidence of disc bulge or protrusion. T3-T4: The thecal sac has a normal diameter. No evidence of disc bulge or protrusion. T4-T5: The thecal sac has a normal diameter. No evidence of disc bulge or protrusion. T5-T6: The thecal sac has a normal diameter. No evidence of disc bulge or protrusion. T6-T7: The thecal sac has a normal diameter. No evidence of disc bulge or protrusion. T7-T8: The thecal sac has a normal diameter. No evidence of disc bulge or protrusion. T8-T9: The thecal sac has a normal diameter. No evidence of disc bulge or protrusion. T9-T10: The thecal sac has a normal diameter. No evidence of disc bulge or protrusion. T10-T11: The thecal sac has a normal diameter. No evidence of disc bulge or protrusion. T11-T12: The thecal sac has a normal diameter. No evidence of disc bulge or protrusion. T12-L1: The thecal sac has a normal diameter. No evidence of disc bulge or protrusion. CONCLUSION: 1. Small bilateral pleural effusions. 2. No signal abnormalities in the thoracic vertebral bodies and no evidence of focal disc disease. Jace Bird MD on November 09, 2017 at 0:13 Board Certified Radiologist. This report was verified electronically.
[2017-11-09 02:51] LABS: BASOPHIL % 0.1 % (0.0-2.0); EOSINOPHIL # 0.5 TH/MM3 (0-0.4); EOSINOPHIL % 4.6 % (0.0-4.0); HEMATOCRIT 24.5 % (39.0-51.0); HEMOGLOBIN 8.4 GM/DL (13.0-17.0); LYMPH % 2.5 % (9.0-44.0); LYMPHOCYTE # 0.3 TH/MM3 (1.0-4.8); MEAN CELL VOLUME 80.4 FL (80.0-100.0); MEAN CORPUSCULAR HEMOGLOBIN 27.5 PG (27.0-34.0); MEAN CORPUSCULAR HGB CONC 34.2 % (32.0-36.0); MEAN PLATELET VOLUME 6.8 FL (7.0-11.0); MONO % 4.7 % (0.0-8.0); MONOCYTE # 0.5 TH/MM3 (0-0.9); NEUT % 88.1 % (16.0-70.0); PLATELET COUNT 336 TH/MM3 (150-450); RED BLOOD COUNT 3.04 MIL/MM3 (4.50-5.90); RED CELL DISTRIBUTION WIDTH 18.2 % (11.6-17.2); WHITE BLOOD COUNT 10.2 TH/MM3 (4.0-11.0)
[2017-11-09] MEDS: PIPERACIL-TAZO 4.5 GM PREMIX 100 ML IV SCH ×5 (03:00→21:57)
[2017-11-09 03:02] LABS: INTERNATIONAL NORMALIZED RATIO 1.2 RATIO; PROTHROMBIN TIME - PATIENT 12.1 SEC (9.8-11.6)
[2017-11-09 03:18] LABS: LACTIC ACID SEPSIS PROTOCOL 2.7 mmol/L (0.4-2.0)
[2017-11-09 03:21] LABS: ALBUMIN 1.3 GM/DL (3.4-5.0); BICARBONATE 24.1 MEQ/L (21.0-32.0); CALCIUM 7.4 MG/DL (8.5-10.1); CALCIUM-PROTEIN CORRECTED 8.6 MG/DL (8.5-10.1); CREATININE 0.55 MG/DL (0.60-1.30); MAGNESIUM 1.8 MG/DL (1.5-2.5); PHOSPHORUS 4.3 MG/DL (2.5-4.9); TOTAL BILIRUBIN ADULT 0.3 MG/DL (0.2-1.0); TOTAL PROTEIN 4.9 GM/DL (6.4-8.2)
[2017-11-09 03:48] LABS: BANDS 17 % (0-6); DOHLE BODIES PRESENT (NONE SEEN); METAMYELOCYTES 53 % (0-1); MONOCYTES 1 % (0-8); MYELOCYTES 6 % (0-0); NEUTROPHIL # MANUAL DIFF 10.1 TH/MM3 (1.8-7.7); POLYS (SEG NEUTROPHILS) 23 % (16-70); TOXIC VACUOLATION PRESENT (NONE SEEN)
[2017-11-09] MEDS: CHLORHEXIDINE GLUCONATE 2 % 1 PACK (2 CLOTHS) TOP SCH (03:48)
[2017-11-09 03:50] LABS: TARGET CELLS 1+ (NORMAL)
[2017-11-09] MEDS: HEPARIN SODIUM - SQ 10,000 UNITS/ML VIAL SQ SCH (07:15)
--- NOTE | 2017-11-09 07:55 | HHI.CCPN ---
Subjective Remarks/Hospital Course 41 year old male presents for evaluation of difficulty walking, generalized weakness that began earlier today. The patient arrives out in triage with a blood pressure systolic in the 70s. According to the patient's mother he has not been well since July. She reports that he was seen at another emergency department related to back and hip pain at that time. The patient at that time was also diagnosed with a fecal impaction and severe constipation. He has been since then seen by a roll hauler. He was placed on a bowel regimen to help with the constipation, however his mother reports that he's been having difficulty maintaining it. The patient since July has been incontinent of stool and intermittently incontinent of urine. The stool is brown in color. The patient has a diagnosis of schizoaffective disorder and is a poor historian. His mother reports that he has a history of being diagnosed with a nerve problem involving the right leg and since Tuesday he has had swelling of the right leg. He reports having abdominal pain down in bilateral lower quadrants of the abdomen. He reports having nausea. They deny him having any known recent fevers, worsening cough or congestion, neck pain, chest pain, shortness of breath, weakness of his upper extremities, numbness or tingling of his upper extremities. The patient does however report having weakness of bilateral lower extremities with pain/sharp pains that shoot down into the right leg. The CT scan obtained in the emergency department shows abnormal appearance of the soft tissue of the proximal thigh and the gluteal region with fluid and gas tracking between the rectus muscle in the anterior thigh muscle. The combination of fluid and gas suggest either an infectious or necrotic process. 11/09: Ongonig resuscitation from sepsis due to right thigh abscess, extends to gluteal region, possible bone involvement? Urine acceptable. Objective Vital Signs Date Time Temp Pulse Resp B/P (MAP) Pulse Ox O2 Delivery O2 Flow Rate FiO2 11/09/17 06:00 95 11/09/17 04:00 99.3 25 97/50 (66) 95 11/09/17 02:00 Room Air Intake and Output 11/09/17 11/09/17 11/10/17 08:00 16:00 00:00 Intake Total 100 ml Output Total 200 ml Balance -100 ml Result Diagram: 11/09/17 0237 11/09/17 0237 Imaging Last 24 hours Impressions Lower Extremity Ultrasound 11/08/172011 Signed Impressions: Service Date/Time: Wednesday, November 08, 2017 20:41 - CONCLUSION: 1. Negative for deep venous thrombosis. There are mildly enlarged right inguinal lymph nodes. Bertrand Smalls MD Chest X-Ray 11/08/172011 Signed Impressions: Service Date/Time: Wednesday, November 08, 2017 21:10 - CONCLUSION: 1. Subsegmental airspace disease right lung base. Finding may represent a small bronchopneumonia. Bertrand Smalls MD Abdomen/Pelvis CT 11/08/172011 Signed Impressions: Service Date/Time: Wednesday, November 08, 2017 22:54 - CONCLUSION: 1. Abnormal appearance of the soft tissues of the proximal thigh and gluteal region with fluid and gas tracking between the rectus muscles and the anterior thigh muscles. No focal abnormal areas of enhancement. The combination of fluid and gas suggests either an infectious or necrotic process. 2. Nonobstructing small calcified stone mid pole left kidney and multiple left renal cysts. 3. Small bilateral pleural effusions. Jace Bird MD Objective Remarks GENERAL: Pale and ill-appearing young gentleman SKIN: Warm and dry. HEAD: Normocephalic. EYES: No scleral icterus. No injection or drainage. NECK: Supple, trachea midline. No JVD. Airway widely patent. CARDIOVASCULAR: Regular rate and rhythm without murmurs, gallops, or rubs. RESPIRATORY: Breath sounds equal bilaterally. No accessory muscle use. Clear. GASTROINTESTINAL: Abdomen soft, non-tender, nondistended. BS active. MUSCULOSKELETAL: No cyanosis, or edema. 2+ pitting edema of the right lower extremity. Trace edema of the left lower extremity. The patient reports calf tenderness on palpation. Patient's compartments are soft. There is no erythema. The patient has diffuse swelling of the right leg from the thigh down. 2+ pulses in all 4 extremities. BACK: Nontender without obvious deformity. NEURO EXAM: GCS: 15. The patient is alert and oriented to person, place, and time with normal speech. Moves 4 limbs to command. A/P Assessment and Plan Gluteal muscle and thigh abscess/necrosis - Broad-spectrum antibiotic - Follow-up cultures - General surgery consultation for debridement - ID consult for severe sepsis - Possible bone involvement on MRI. Hyponatremia - Severe dehydration - IV fluids resuscitation per sepsis protocol - Monitor trend Schizoaffective disorder - Depakote - Risperidone Anemia - Transfuse for hemoglobin less than 7 - Monitor trend Anxiety -Hydroxyzine DVT GI prophylaxis - Teds SCDs - Subcutaneous heparin - Pepcid Overall impression: Critically ill and undergoing resuscitation from severe sepsis. Gas forming infection right thigh, buttocks requires urgent drainage and debridement. Critical Care 38 mins Tariq Garcia MD Nov 09, 2017 07:55
[2017-11-09] MEDS ORDERED: DIVALPROEX DR 500 MG TABEC PO SCH (09:00)
[2017-11-09] MEDS ORDERED: SODIUM CHLOR 0.9% 1000 ML INJ 1,000 ML IV ONE (09:00)
[2017-11-09] MEDS: CLINDAMYCIN 600 MG/NS PREMIX 50 ML IV SCH ×3 (09:21→17:38)
[2017-11-09] MEDS: SODIUM CHLORIDE 0.9% FLUSH 10 ML FLUSH IV FLUSH SCH ×2 (09:22→21:57)
[2017-11-09] MEDS: hydrOXYzine HCL 50 MG TAB PO SCH (09:22)
[2017-11-09] MEDS: FAMOTIDINE 20 MG/2 ML VIAL IV PUSH SCH ×2 (09:22→21:57)
[2017-11-09] MEDS: risperiDONE 3 MG TAB PO SCH (09:22)
[2017-11-09] MEDS: SODIUM CHLOR 0.9% 1000 ML INJ 1,000 ML IV SCH ×3 (09:22→17:00)
--- NOTE | 2017-11-09 11:59 | PD.ID.CON ---
History of Present Illness Service ID Consult Requested By Reason for Consult Evaluation and Mment of Severe Sepsis, Right buttock abscess possible osteomyelitis. Primary Care Physician Black Sanchez DO Diagnoses: History of Present Illness is a 41 y/o CM with PMHx of Schizoaffective disorder on Haldol IM injections in bilateral buttocks. Patient reports getting these as outpatient by unknown doctor (different doctor each time per patient). Approx 1 month back after he received his last Haldol IM shot in right buttock patient noticed pain and swelling and decreased range of motion. Patient continued to receive Haldol shots in left buttock due to pain in right buttock. Patient reports his ability to move around has declined since last 1 week and he needs help with ADL phuong dressing himself due to significant pain on right lower extremity. Patient reports fevers chills and night sweats for the last 1 week prior to admission and significant worsening pain and swelling of his right lower extremity. Patient's past medical history is also significant for right dorsum of the foot marsh as a child as well as neuropathy. Per review of records it appears the patient's mother has reported that he hasn't been feeling well since July and has presented to another emergency department related to back and hip pain. The patient was diagnosed with fecal impaction and severe constipation was seen by clinical laboratory manager. Patient reports that he was on a bowel regimen to help with her constipation and that has been a challenge to maintain continence. Patient has had incontinence of stool and intermittently incontinence of urine since July. With this background patient presents to the emergency department for evaluation of difficulty walking, generalized weakness, weight loss loss of appetite. Reportedly while in the triage area his blood pressure was in the 70s systolic. Patient also reported abdominal pain in the lower quadrants radiating to his bilateral lower extremity but more so on the right. Patient reported nausea decrease in appetite and loss of about 20 pound weight in the last 1 month. Patient denies any recent intravenous drug abuse. Patient does endorse to receiving intramuscular Haldol in bilateral buttocks. The last right buttock Haldol injection was approximately 1 month back. Patient reports having weakness of bilateral lower extremities more so on the right especially because of sharp shooting pains down his right leg. In the emergency department patient received a total of 4 L of IV fluids as a part of severe sepsis workup and management. Cultures drawn at admission are currently pending. A CT scan of the abdomen showed appearance of soft tissue mass of the proximal thigh and gluteal region with fluid and gas tracking down the rectus muscle into the anterior thigh muscle. This is concerning for infectious or necrotic process. At the time of my evaluation patient is in the intensive surgical care unit. He has received 4 L of IV fluids normal saline. He has good urine output. Currently awake alert oriented 3, on room air. Infectious disease consulted for evaluation and management of severe sepsis, right buttock abscess possible osteomyelitis. Review of Systems ROS Limitations: Poor Historian Constitutional: COMPLAINS OF: Fatigue, Fever, Weight loss, Chills, Change in appetite, Night Sweats, DENIES: Diaphoretic episodes, Weight gain, Dizziness Endocrine: DENIES: Heat/cold intolerance, Polydipsia, Polyuria, Polyphagia Eyes: DENIES: Blurred vision, Diplopia, Eye inflammation, Eye pain, Vision loss , Photosensitivity, Double Vision Ears, nose, mouth, throat: DENIES: Tinnitus, Hearing loss, Vertigo, Nasal discharge, Oral lesions, Throat pain, Hoarseness, Ear Pain, Running Nose, Epistaxis, Sinus Pain, Toothache, Odynophagia Respiratory: DENIES: Apneas, Cough, Snoring, Wheezing, Hemoptysis, Sputum production, Shortness of breath Cardiovascular: DENIES: Chest pain, Palpitations, Syncope, Dyspnea on Exertion , PND, Lower Extremity Edema, Orthopnea, Claudication Gastrointestinal: DENIES: Abdominal pain, Black stools, Bloody stools, Constipation, Diarrhea, Nausea, Vomiting, Difficulty Swallowing, Anorexia Genitourinary: DENIES: Sexual dysfunction, Urinary frequency, Urinary incontinence, Urgency, Hematuria, Dysuria, Nocturia, Penile Discharge, Testicular Pain, Testicular Swelling Musculoskeletal: COMPLAINS OF: Joint pain, Muscle aches, Stiffness, Joint Swelling, DENIES: Back pain, Neck pain Integumentary: DENIES: Abnormal pigmentation, Nail changes, Pruritus, Rash Hematologic/lymphatic: DENIES: Bruising, Lymphadenopathy Immunologic/allergic: DENIES: Eczema, Urticaria Neurologic: COMPLAINS OF: Abnormal gait, Poor Balance, DENIES: Headache, Localized weakness, Paresthesias, Seizures, Speech Problems, Tremor Psychiatric: COMPLAINS OF: Depression, DENIES: Anxiety, Confusion, Mood changes , Hallucinations, Agitation, Suicidal Ideation, Homicidal Ideation, Delusions Except as stated in HPI: all other systems reviewed are Neg Past Family Social History Allergies: Coded Allergies: diphenhydramine (Verified Adverse Reaction, Unknown, 11/08/17) Past Medical History Neuropathy involving the right leg h/o marsh right foot dorsum as a child. Schizoaffective disorder, Depressions Anxiety Past Surgical History None per patient. Reported Medications Haldol IV IM in buttocks. Last one in Rt buttock a month back. Continues to receive Haldol left buttock. Reported Meds & Active Scripts Active Reported Hydroxyzine HCl 50 Mg Tab 50 Mg PO BID Propranolol (Propranolol HCl) 20 Mg Tab 20 Mg PO Q12HR Divalproex DR (Divalproex Sodium) 500 Mg Tabdr 500 Mg PO BID Risperidone 3 Mg Tab 3 Mg PO DAILY Active Ordered Medications Current Medications Medications (Trade) Dose Ordered Sig/Mega Route Start Time Stop Time Status Last Admin Vancomycin/Sodium Chloride 200 ml @ 200 mls/hr BLOCKER AND SEWER IV 11/08/17 21:30 11/11/17 21:29 (Depakote Dr) 500 mg BID PO 11/09/17 09:00 11/09/17 09:22 (Atarax) 50 mg BID PO 11/09/17 09:00 11/09/17 09:22 (risperDAL) 3 mg DAILY PO 11/09/17 09:00 11/09/17 09:22 (NS Flush) 2 ml UNSCH PRN IV FLUSH 11/08/17 23:15 (NS Flush) 2 ml BID IV FLUSH 11/09/17 09:00 11/09/17 09:22 (Tylenol) 650 mg Q6H PRN PO 11/08/17 23:15 (Pepcid Inj) 20 mg Q12HR IV PUSH 11/09/17 09:00 11/09/17 09:22 (Zofran Inj) 4 mg Q6H PRN IV PUSH 11/08/17 23:15 (Restoril) 15 mg HS PRN PO 11/08/17 23:15 (Duoneb Neb) 1 ampule Q2HR NEB PRN INH 11/08/17 23:15 Miscellaneous Information 1 Q361D XX 11/08/17 23:15 11/08/17 01:00 (Chlorhexidine 2% Cloth) 3 pack Taper DAILY@04 TOP 11/09/17 04:00 11/05/18 03:59 (Chlorhexidine 2% Cloth) 3 pack UNSCH PRN TOP 11/08/17 23:15 Piperacillin Sod/ Tazobactam Sod 100 ml @ 200 mls/hr Q6H IV 11/09/17 03:00 11/09/17 09:24 Vancomycin HCl 1000 mg/Sodium Chloride 250 ml @ 250 mls/hr Q12H IV 11/09/17 00:00 11/09/17 11:55 Clindamycin/ Sodium Chloride 50 ml @ 100 mls/hr Q6H IV 11/09/17 06:00 11/09/17 09:21 Sodium Chloride 1,000 ml @ 125 mls/hr Q8H IV 11/09/17 09:00 11/09/17 09:22 Family History reviewed and NC to current ID problems. Social History Smokes 1 ppd for 20 plus years. No Alcohol IVDA in past cocaine not recently Marijuana snorting. Physical Exam Vital Signs Vital Signs Date Time Temp Pulse Resp B/P (MAP) Pulse Ox O2 Delivery O2 Flow Rate FiO2 11/09/17 10:00 105 11/09/17 08:00 98.1 94 29 101/54 (70) 97 11/09/17 08:00 96 11/09/17 07:00 92 Room Air 11/09/17 07:00 94 11/09/17 06:00 95 11/09/17 04:00 94 11/09/17 04:00 99.3 94 25 97/50 (66) 95 11/09/17 02:00 90 11/09/17 02:00 94 Room Air 11/09/17 01:22 11/09/17 01:00 99.3 92 23 99/50 (66) 95 11/09/17 00:00 89 17 90/55 (67) 100 Room Air 11/08/17 23:00 85 17 75/47 (56) 100 Room Air 11/08/17 22:00 81 19 80/45 (57) 100 Room Air 11/08/17 21:00 80 18 88/55 (66) 100 Room Air 11/08/17 20:00 19 11/08/17 19:54 82 22 73/51 (58) 100 Room Air Physical Exam GENERAL: Thin built, poorly nourished patient, in no apparent distress. SKIN: No rashes, ecchymoses or lesions. Cool and dry. HEAD: Atraumatic. Normocephalic. No temporal or scalp tenderness. EYES: Pupils equal round and reactive. Extraocular motions intact. No scleral icterus. No injection or drainage. ENT: Nose without bleeding, purulent drainage or septal hematoma. Throat without erythema, tonsillar hypertrophy or exudate. Uvula midline. Airway patent. Oral mucosa dry. NECK: Trachea midline. Supple, nontender, no meningeal signs. CARDIOVASCULAR: HS audible. RESPIRATORY: Wheezing bilaterally. Basilar crackles. GASTROINTESTINAL: Abdomen soft, non-tender, nondistended. MUSCULOSKELETAL: The entire right lower extremity is significantly swollen compared to the left lower extremity. Decreased range of motion at the hip and knee as well as ankle joint due to significant pain. There is pitting edema noted at the thigh level. There is some skin lesions which appear like dry scab lesions on the thigh as well as in other parts of the body. There is some erythema induration and swelling as well as tenderness noted in the right thigh. Patient unable to turn due to pain. NEUROLOGICAL: Awake and alert. Non focal. Cannot comment about RLE as patient has significant pain and ROM reduced as a result of that. Psych cooperative IV line sites with no e.o infection. Laboratory Laboratory Tests Test 11/08/17 20:00 11/08/17 20:03 11/08/17 21:45 11/08/17 23:15 Lactic Acid Level 9.1 4.5 White Blood Count 15.8 Red Blood Count 3.40 Hemoglobin 9.0 Hematocrit 27.9 Mean Corpuscular Volume 82.1 Mean Corpuscular Hemoglobin 26.6 Mean Corpuscular Hemoglobin Concent 32.4 Red Cell Distribution Width 18.0 Platelet Count 473 Mean Platelet Volume 7.0 Neutrophils (%) (Auto) 91.0 Lymphocytes (%) (Auto) 1.8 Monocytes (%) (Auto) 6.6 Eosinophils (%) (Auto) 0.3 Basophils (%) (Auto) 0.3 Neutrophils # (Auto) 14.4 Lymphocytes # (Auto) 0.3 Monocytes # (Auto) 1.1 Eosinophils # (Auto) 0.0 Basophils # (Auto) 0.1 CBC Comment AUTO DIFF Differential Total Cells Counted 100 Neutrophils % (Manual) 60 Band Neutrophils % 28 Lymphocytes % 3 Monocytes % 5 Neutrophils # (Manual) 14.5 Metamyelocytes 4 Differential Comment FINAL DIFF MANUAL Toxic Granulation 1+ Toxic Vacuolation PRESENT Dohle Bodies PRESENT Platelet Estimate HIGH Platelet Morphology Comment NORMAL Spherocytes 1+ Acanthocytes OCC Erythrocyte Sedimentation Rate 71 Prothrombin Time 12.6 Prothromb Time International Ratio 1.2 Activated Partial Thromboplast Time 30.0 Blood Urea Nitrogen 27 Creatinine 0.96 Random Glucose 72 Total Protein 6.3 Albumin 1.6 Calcium Level 8.9 Magnesium Level 2.2 Alkaline Phosphatase 116 Aspartate Amino Transf (AST/SGOT) 30 Alanine Aminotransferase (ALT/SGPT) 15 Total Bilirubin 0.3 Sodium Level 125 Potassium Level 5.0 Chloride Level 85 Carbon Dioxide Level 25.4 Anion Gap 15 Estimat Glomerular Filtration Rate 87 Total Creatine Kinase 59 Troponin I LESS THAN 0.02 C-Reactive Protein 31.00 B-Type Natriuretic Peptide 199 Lipase 43 Ethyl Alcohol Level LESS THAN 3 Urine Color YELLOW Urine Turbidity CLEAR Urine pH 6.5 Urine Specific [place] 1.010 Urine Protein NEG Urine Glucose (UA) NEG Urine Ketones NEG Urine Occult Blood NEG Urine Nitrite NEG Urine Bilirubin NEG Urine Urobilinogen 4.0 Urine Leukocyte Esterase NEG Urine RBC LESS THAN 1 Urine WBC LESS THAN 1 Urine Squamous Epithelial Cells 3 Microscopic Urinalysis Comment CULT NOT INDICATED Urine Opiates Screen NEG Urine Barbiturates Screen NEG Urine Amphetamines Screen NEG Urine Benzodiazepines Screen NEG Urine Cocaine Screen NEG Urine Cannabinoids Screen POS Test 11/09/17 02:20 11/09/17 02:37 11/09/17 05:16 Nasal Screen MRSA (PCR) MRSA NOT DETECTED White Blood Count 10.2 Red Blood Count 3.04 Hemoglobin 8.4 Hematocrit 24.5 Mean Corpuscular Volume 80.4 Mean Corpuscular Hemoglobin 27.5 Mean Corpuscular Hemoglobin Concent 34.2 Red Cell Distribution Width 18.2 Platelet Count 336 Mean Platelet Volume 6.8 Neutrophils (%) (Auto) 88.1 Lymphocytes (%) (Auto) 2.5 Monocytes (%) (Auto) 4.7 Eosinophils (%) (Auto) 4.6 Basophils (%) (Auto) 0.1 Neutrophils # (Auto) 9.0 Lymphocytes # (Auto) 0.3 Monocytes # (Auto) 0.5 Eosinophils # (Auto) 0.5 Basophils # (Auto) 0.0 CBC Comment AUTO DIFF Differential Total Cells Counted 100 Neutrophils % (Manual) 23 Band Neutrophils % 17 Monocytes % 1 Neutrophils # (Manual) 10.1 Metamyelocytes 53 Myelocytes 6 Differential Comment FINAL DIFF MANUAL Toxic Vacuolation PRESENT Dohle Bodies PRESENT Platelet Estimate NORMAL Platelet Morphology Comment NORMAL Target Cells 1+ Prothrombin Time 12.1 Prothromb Time International Ratio 1.2 Activated Partial Thromboplast Time 29.2 Blood Urea Nitrogen 22 Creatinine 0.55 Random Glucose 72 Total Protein 4.9 Albumin 1.3 Calcium Level 7.4 Phosphorus Level 4.3 Magnesium Level 1.8 Alkaline Phosphatase 77 Aspartate Amino Transf (AST/SGOT) 30 Alanine Aminotransferase (ALT/SGPT) 13 Total Bilirubin 0.3 Sodium Level 133 Potassium Level 4.2 Chloride Level 98 Carbon Dioxide Level 24.1 Anion Gap 11 Estimat Glomerular Filtration Rate 166 Lactic Acid Level 2.7 2.3 Protein Corrected Calcium 8.6 Total Creatine Kinase 143 Date/Time Source Procedure Growth Status 11/08/17 21:35 Blood Peripheral Aerobic Blood Culture - Preliminary NO GROWTH IN 1 DAY Resulted 11/08/17 21:35 Blood Peripheral Anaerobic Blood Culture - Preliminary NO GROWTH IN 1 DAY Resulted 11/08/17 21:45 Urine Catheterized Urine Urine Culture Pending Received Result Diagram: 11/09/17 0237 11/09/17 0237 Imaging Last Impressions Lower Extremity Ultrasound 11/08/172011 Signed Impressions: Service Date/Time: Wednesday, November 08, 2017 20:41 - CONCLUSION: 1. Negative for deep venous thrombosis. There are mildly enlarged right inguinal lymph nodes. Bretrand Smalls MD Chest X-Ray 11/08/172011 Signed Impressions: Service Date/Time: Wednesday, November 08, 2017 21:10 - CONCLUSION: 1. Subsegmental airspace disease right lung base. Finding may represent a small bronchopneumonia. Bertrand Smalls MD Abdomen/Pelvis CT 11/08/172011 Signed Impressions: Service Date/Time: Wednesday, November 08, 2017 22:54 - CONCLUSION: 1. Abnormal appearance of the soft tissues of the proximal thigh and gluteal region with fluid and gas tracking between the rectus muscles and the anterior thigh muscles. No focal abnormal areas of enhancement. The combination of fluid and gas suggests either an infectious or necrotic process. 2. Nonobstructing small calcified stone mid pole left kidney and multiple left renal cysts. 3. Small bilateral pleural effusions. Jace Bird MD Thoracic Spine MRI 11/08/17 0000 Signed Impressions: Service Date/Time: Wednesday, November 08, 2017 22:01 - CONCLUSION: 1. Small bilateral pleural effusions. 2. No signal abnormalities in the thoracic vertebral bodies and no evidence of focal disc disease. Jace Bird MD Lumbar Spine MRI 11/08/17 0000 Signed Impressions: Service Date/Time: Wednesday, November 08, 2017 22:01 - CONCLUSION: 1. No evidence of lumbar disc disease. 2. Soft tissue abnormality about the right gluteal region suggesting abscess with T2 prolongation and contrast enhancement ; this is incompletely included in the [id number] of the exam. 3. There is also abnormal signal within the marrow of the sacral and coccygeal marrow including contrast enhancement suggesting that the right thigh and gluteal abnormality may extend intraosseous, possibly osteomyelitis. Jace Bird MD Assessment and Plan Assessment and Plan Severe sepsis present on admission. Right thigh abscess possible myositis, osteomyelitis. Schizoaffective disorder receives IM Haldol injections in the buttocks. Lower extremity neuropathy. Weight loss, loss of appetite:? Due to chronic infection versus rule out HIV. Recommendations: Continue Zosyn IV Continue Vanco IV Continue Clinda IV (for toxin neutralization for possible necrotizing fascitis) pending surgical evaluation. Patient consented to HIV testing. Will alfonso Mena about intra op findings. Follow cultures Follow clinically. María Upton MD Nov 09, 2017 11:59
[2017-11-09] MEDS ORDERED: ROCURONIUM INJ 50 MG/5 ML SYRINGE IV PUSH ONE (12:00)
[2017-11-09] MEDS ORDERED: LIDOCAINE HCL 1% PF 5 ML SYRINGE OTHER ONE (12:00)
[2017-11-09] MEDS ORDERED: PHENYLEPH/NS 1000 MCG/10 ML SYR IV ONE (12:00)
[2017-11-09] MEDS ORDERED: NEOSTIGMINE 5 MG/5 ML SYRINGE IV PUSH ONE (12:00)
[2017-11-09] MEDS ORDERED: DEXAMETHASONE SOD PHOS 4 MG/ML VIAL IV ONE (12:00)
[2017-11-09] MEDS ORDERED: PROPOFOL 200 MG/20 ML AMP IV ONE (12:00)
[2017-11-09] MEDS ORDERED: PHENYLEPHRINE HCL 10 MG/ML VIAL IV ONE (12:00)
[2017-11-09] MEDS ORDERED: GLYCOPYRROLATE 1 MG/5 ML SYRINGE IV PUSH ONE (12:00)
[2017-11-09] MEDS ORDERED: ONDANSETRON HCL 4 MG/2 ML VIAL IV ONE (12:00)
[2017-11-09] MEDS ORDERED: LACTATED RINGER'S 1000 ML INJ 1,000 ML IV ONE (12:00)
[2017-11-09] MEDS ORDERED: Vancomycin Consult Pharmacy 1 EA OTHER SCH (12:30)
[2017-11-09] MEDS ORDERED: BUPIVACAINE/EPINEPHRINE 0.25% 50 ML VIAL ONE (14:59)
[2017-11-09] MEDS ORDERED: PROPOFOL 1000 MG/100 ML INJ 100 ML ONE (15:45)
[2017-11-09] MEDS ORDERED: DO NOT ADM ANY ANTICOAGULANT DRUGS PRN (16:00)
[2017-11-09] MEDS: PROPOFOL 1000 MG/100 ML IV PRN ×2 (16:00→22:01)
[2017-11-09] MEDS ORDERED: MIDAZOLAM HCL 2 MG/2 ML VIAL ONE (16:25)
[2017-11-09] MEDS ORDERED: RASS Change Order XX ONE (16:30)
--- NOTE | 2017-11-09 16:44 | HHI.PR ---
cc: Bertrand Campos MD Immediate Post Op Note Procedure Date: Nov 09, 2017 Pre Op Diagnosis: (1) Abscess of right hip (2) Abscess of gluteal region (3) Right leg swelling Post Op Diagnosis: (1) Abscess of gluteal region (2) Abscess of right hip (3) Right leg swelling Surgeon: Bertrand Campos Printing Press Machinist(s): Please refer to the operating room records Procedure: Incision and drainage and irrigation and debridement of abscess right hip gluteal region Placement of VAC drain and deep drain in the abscess cavity of the right hip gluteal region Findings: Abscess deep gluteal hip region Specimen(s) removed: Necrotic tissue Estimated blood loss: Minimal Anesthesia: General Drains: Other IVF Patient to: PACU Patient Condition: Good Implant/Devices: SEE IMPLANT LOG (if applicable) Date/Time of Procedure: SEE SURGICAL CARE RECORD Bertrand Campos MD Nov 09, 2017 16:44
--- NOTE | 2017-11-09 16:45 | MB ---
cc: BERTRAND CAMPOS M.D. DATE OF CONSULTATION 11/08/2017 REASON FOR CONSULTATION Right gluteal abscess. HISTORY OF THE PRESENT ILLNESS This is a 41-year-old gentleman who apparently came obtains Haldol IM shots on an intermittent basis for alternating between right and left hips. He developed some pain in his right gluteal region last week and this progressed. Apparently he has had some problems with urinary and stool continence. He was seen in another institution but then became worse after he was discharged. He was brought here. A CT scan was done which showed a gluteal abscess. I was consulted for consideration of surgical intervention. The patient is presently in the intensive care unit. He was sleeping. He is inconsistent with this history, so I relied on the previous records and notes in the medical system. I did talk to the mother by phone and she corroborated the problem with right hip problem with swelling in the leg and difficulty moving the leg. REVIEW OF SYSTEMS He just complains of fatigue and weight loss, some chills, change in appetite, pain in his right leg. No cardiac or pulmonary issues. He has had some problems with stool and urinary incontinence. PAST MEDICAL HISTORY Significant for: 1. Schizoaffective disorder. 2. Depression. 3. Anxiety. PHYSICAL EXAMINATION GENERAL: On physical exam he is thin gentleman, talkative. He awakens. He looks tired, looks ill. NECK: Supple. CHEST: Clear. HEART: Regular. ABDOMEN: Thin, soft without rebound or guarding. EXTREMITIES: His right leg is significantly tender mainly in the right hip where there is some fluctuance palpated on the lateral aspect of the right hip. He has tense edema in the entirety of the extremity. With edema. Okay capillary refill and perfusion of his right lower extremity. LABORATORY DATA White count of 10. H&H 8 and 24. His lactic acid was elevated but now it is 2.7. IMAGING CT imaging reviewed. He had ultrasound which shows some lymph nodes in his groin on the right side but no DVT. CT scan of his abdomen and pelvis shows this infective process in the right gluteal region, questionable involvement of bone. He had a thoracic MRI and a lumbar MR. ASSESSMENT Right abscess in the gluteal region. PLAN Operative intervention. This was discussed with mother on the phone. I told her he will have to be in the hospital a few days with an open wound depending on the extent of the nature of the abscess intraoperatively. She appeared to understand and gave verbal consent on the phone. Bertrand Campos MD JPASCUAL/JOSEFINA /3:32 PM /4:30 PM JOI
--- NOTE | 2017-11-09 16:51 | RADRPT ---
EXAM DATE/TIME: 11/09/2017 16:23 [facility] COMPARISON: CHEST SINGLE AP, November 08, 2017, 21:10. INDICATIONS : Post ET tube placement. MEDICAL HISTORY : None. SURGICAL HISTORY : None. ENCOUNTER: Initial ACUITY: 1 day PAIN SCORE: Non-responsive. LOCATION: Bilateral chest FINDINGS: ET tube in good position. Minimal probable changes left base. Right lung clear. The heart and pulmo nary vascularity are normal. CONCLUSION: Minimal infiltrate left base new from comparison study. Rodrick Ch MD FACR on November 09, 2017 at 16:47 Board Certified Radiologist. This report was verified electronically.
[2017-11-09] MEDS: VANCOMYCIN 1,500 MG/NS 500 ML IV SCH ×2 (17:38)
[2017-11-09] MEDS ORDERED: PROPOFOL 1000 MG/100 ML INJ 100 ML IV PRN (17:45)
[2017-11-09] MEDS: CHLORHEXIDINE 0.12% (ORAL KIT) 15 ML CUP MT SCH (21:58)
--- NOTE | 2017-11-09 23:03 | MP ---
cc: SUSAN CAMPOS DATE OF SURGERY: 11/09/2017 PREOPERATIVE DIAGNOSIS: Right hip gluteal abscess. POSTOPERATIVE DIAGNOSIS: Right hip gluteal abscess. OPERATION: Incision and drainage, irrigation and debridement of right hip abscess with placement of Vac dressing. fairly deep ANESTHESIA: General. SURGEON Dr. Campos. INDICATIONS FOR PROCEDURE: The patient is a pleasant unfortunate 41 year-old gentleman who developed an abscess of the right gluteal region. Plans were made for above. Intraoperative he was found to have a deep gluteal abscess that extended inferiorly down about 10 cm along the lateral aspect of the thigh and superiorly underneath the gluteus muscle. Cultures were taken, Vac applied and drain placed. DESCRIPTION OF PROCEDURE: The patient was placed in the supine position, after anesthesia. He was placed in the left lateral decubitus position. The area in question can be palpated for the purulent material and fluctuance noted. We anesthetized the area after prepping and draping. We make a curvilinear incision over the apex of this abscess cavity, dissect down to the deep subcutaneous tissue, muscle fibers were seen. They were split along the length of the fibers out laterally and a fair amount of purulent material which is cultured is returned. It was fairly foul-smelling. We opened the cavity about 6 cm. We then irrigate copiously, some necrotic debris is debrided of deep subcutaneous tissue along the muscle edge and fascia which is removed. This does not have the typical findings of necrotizing fasciitis, more like a deep abscess. The abscess seems much deeper than the imaging had suggested. I am able to break up loculations with a finger dissection and the suction device. We irrigate copiously with a liter of saline. I then placed a large bore drain in the space inferiorly and superiorly and put a small Vac in the wound, and place this on intermittent suction. Will plan on returning to the operating room Tuesday and I will get a consultation with orthopedic to see if there is any other additional imaging or treatment necessary to see if this is involving the bone or joint space. MD LAN Nguyen/CARLOS MANUEL /3:37 PM /10:35 PM JOI
[2017-11-09] MEDS: fentaNYL DRIP 250 ML IV PRN (23:04)
[2017-11-10] VITALS (22 sets, daily range): BP systolic 87–102; BP diastolic 43–57; PULSE 77–101; RESP 14–23; TEMP 99–100.7; O2SAT 97–100
[2017-11-10] MEDS: VALPROIC ACID SYRUP 250 MG/5 ML UDC OG-TUBE SCH ×3 (00:51→21:22)
[2017-11-10] MEDS: hydrOXYzine HCL 50 MG TAB PO SCH ×3 (00:52→21:22)
[2017-11-10] MEDS: CLINDAMYCIN 600 MG/NS PREMIX 50 ML IV SCH ×3 (00:55→12:14)
[2017-11-10] MEDS: VANCOMYCIN 1,500 MG/NS 500 ML IV SCH ×6 (01:09→17:46)
[2017-11-10] MEDS: PROPOFOL 1000 MG/100 ML IV PRN ×4 (01:09→21:20)
[2017-11-10] MEDS: PIPERACIL-TAZO 4.5 GM PREMIX 100 ML IV SCH ×4 (04:00→21:21)
[2017-11-10] MEDS: CHLORHEXIDINE GLUCONATE 2 % 1 PACK (2 CLOTHS) TOP SCH (04:00)
[2017-11-10 05:21] LABS: AUTOMATED NEUTROPHIL # 12.4 TH/MM3 (1.8-7.7); BASOPHIL # 0.1 TH/MM3 (0-0.2); BASOPHIL % 0.8 % (0.0-2.0); HEMATOCRIT 22.8 % (39.0-51.0); HEMOGLOBIN 7.5 GM/DL (13.0-17.0); LYMPH % 2.6 % (9.0-44.0); LYMPHOCYTE # 0.4 TH/MM3 (1.0-4.8); MEAN CELL VOLUME 81.9 FL (80.0-100.0); MEAN PLATELET VOLUME 7.9 FL (7.0-11.0); MONO % 7.7 % (0.0-8.0); MONOCYTE # 1.1 TH/MM3 (0-0.9); NEUT % 88.9 % (16.0-70.0); PLATELET COUNT 227 TH/MM3 (150-450); RED BLOOD COUNT 2.78 MIL/MM3 (4.50-5.90); RED CELL DISTRIBUTION WIDTH 18.1 % (11.6-17.2); WHITE BLOOD COUNT 13.9 TH/MM3 (4.0-11.0)
[2017-11-10 05:46] LABS: BICARBONATE 24.8 MEQ/L (21.0-32.0); CALCIUM 7.6 MG/DL (8.5-10.1); CREATININE 0.83 MG/DL (0.60-1.30)
[2017-11-10] MEDS: CHLORHEXIDINE 0.12% (ORAL KIT) 15 ML CUP MT SCH ×2 (08:00→20:00)
[2017-11-10] MEDS: SODIUM CHLORIDE 0.9% FLUSH 10 ML FLUSH IV FLUSH SCH ×2 (08:24→21:21)
[2017-11-10] MEDS: SODIUM CHLOR 0.9% 1000 ML INJ 1,000 ML IV SCH ×2 (08:24→17:00)
[2017-11-10] MEDS: FAMOTIDINE 20 MG/2 ML VIAL IV PUSH SCH ×2 (08:25→21:22)
[2017-11-10] MEDS: risperiDONE 3 MG TAB PO SCH (08:25)
[2017-11-10 09:02] LABS: BANDS 76 % (0-6); LYMPHOCYTES 1 % (9-44); METAMYELOCYTES 1 % (0-1); MONOCYTES 1 % (0-8); MYELOCYTES 1 % (0-0); NEUTROPHIL # MANUAL DIFF 13.6 TH/MM3 (1.8-7.7); POLYS (SEG NEUTROPHILS) 20 % (16-70); TARGET CELLS 1+ (NORMAL); TOXIC GRANULATION 2+ (NORMAL)
[2017-11-10 11:35] LABS: HEPATITIS A AB IGM NEGATIVE (NEGATIVE); HEPATITIS B CORE AB IGM NEGATIVE (NEGATIVE)
--- NOTE | 2017-11-10 12:19 | HHI.CCPN ---
Subjective Remarks/Hospital Course 41 year old male presents for evaluation of difficulty walking, generalized weakness that began earlier today. The patient arrives out in triage with a blood pressure systolic in the 70s. According to the patient's mother he has not been well since July. She reports that he was seen at another emergency department related to back and hip pain at that time. The patient at that time was also diagnosed with a fecal impaction and severe constipation. He has been since then seen by a loss prevention manager. He was placed on a bowel regimen to help with the constipation, however his mother reports that he's been having difficulty maintaining it. The patient since July has been incontinent of stool and intermittently incontinent of urine. The stool is brown in color. The patient has a diagnosis of schizoaffective disorder and is a poor historian. His mother reports that he has a history of being diagnosed with a nerve problem involving the right leg and since Tuesday he has had swelling of the right leg. He reports having abdominal pain down in bilateral lower quadrants of the abdomen. He reports having nausea. They deny him having any known recent fevers, worsening cough or congestion, neck pain, chest pain, shortness of breath, weakness of his upper extremities, numbness or tingling of his upper extremities. The patient does however report having weakness of bilateral lower extremities with pain/sharp pains that shoot down into the right leg. The CT scan obtained in the emergency department shows abnormal appearance of the soft tissue of the proximal thigh and the gluteal region with fluid and gas tracking between the rectus muscle in the anterior thigh muscle. The combination of fluid and gas suggest either an infectious or necrotic process. 11/09: Ongoing resuscitation from sepsis due to right thigh abscess, extends to gluteal region, possible bone involvement? Urine acceptable. 11/10: S/P debridement right thigh abscess and wound vac. Septic behavior. Continue ventilator support, back to OR tomorrow. Objective Vital Signs Date Time Temp Pulse Resp B/P (MAP) Pulse Ox O2 Delivery O2 Flow Rate FiO2 11/10/17 10:58 100 40 11/10/17 06:00 96 11/10/17 04:00 99.5 19 87/43 (58) 11/09/17 19:00 Mechanical Ventilator Intake and Output 11/10/17 11/10/17 11/11/17 08:00 16:00 00:00 Intake Total 2174.2 ml Output Total 1150 ml Balance 1024.2 ml Result Diagram: 11/10/17 0358 11/10/17 0358 Other Results Microbiology Date/Time Source Procedure Growth Status 11/08/17 21:45 Urine Catheterized Urine Urine Culture - Final NO GROWTH IN 48 HOURS. Complete Laboratory Tests Test 11/10/17 04:02 Blood Gas Puncture Site RT RADIAL Blood Gas Patient Temperature 98.6 Blood Gas HCO3 24 mmol/L (22-26) Blood Gas Base Excess -1.8 mmol/L (-2-2) Blood Gas Oxygen Saturation 97 % (90-100) Arterial Blood pH 7.28 (7.380-7.420) Arterial Blood Partial Pressure CO2 53 mmHg (38-42) Arterial Blood Partial Pressure O2 174 mmHg (61-120) Arterial Blood Oxygen Content 10.9 Vol % (12.0-20.0) Arterial Blood Carboxyhemoglobin 0.7 % (0-4) Arterial Blood Methemoglobin 1.0 % (0-2) Blood Gas Hemoglobin 7.7 G/DL (12.0-16.0) Oxygen Delivery Device VENTILATOR Blood Gas Ventilator Setting SEE COMMENT Blood Gas Inspired Oxygen 45 % Imaging Last 24 hours Impressions Lower Extremity Ultrasound 11/08/172011 Signed Impressions: Service Date/Time: Wednesday, November 08, 2017 20:41 - CONCLUSION: 1. Negative for deep venous thrombosis. There are mildly enlarged right inguinal lymph nodes. Bertrand Smalls MD Chest X-Ray 11/08/172011 Signed Impressions: Service Date/Time: Wednesday, November 08, 2017 21:10 - CONCLUSION: 1. Subsegmental airspace disease right lung base. Finding may represent a small bronchopneumonia. Bertrand Smalls MD Abdomen/Pelvis CT 11/08/172011 Signed Impressions: Service Date/Time: Wednesday, November 08, 2017 22:54 - CONCLUSION: 1. Abnormal appearance of the soft tissues of the proximal thigh and gluteal region with fluid and gas tracking between the rectus muscles and the anterior thigh muscles. No focal abnormal areas of enhancement. The combination of fluid and gas suggests either an infectious or necrotic process. 2. Nonobstructing small calcified stone mid pole left kidney and multiple left renal cysts. 3. Small bilateral pleural effusions. Jace Bird MD Objective Remarks GENERAL: Pale and ill-appearing young gentleman SKIN: Warm and dry. HEAD: Normocephalic. EYES: No scleral icterus. No injection or drainage. NECK: Supple, trachea midline. Orally intubated. CARDIOVASCULAR: Regular rate and rhythm without murmurs, gallops, or rubs. RESPIRATORY: Breath sounds equal bilaterally. Clear. GASTROINTESTINAL: Abdomen soft, non-tender, nondistended. BS active. No guarding. MUSCULOSKELETAL: No cyanosis, or edema. 2+ pitting edema of the right lower extremity. 1+ edema of the left lower extremity. The patient reports calf tenderness on palpation. Patient's compartments are soft. The patient has diffuse swelling of the right leg from the thigh down. 2+ pulses in all 4 extremities. BACK: Nontender without obvious deformity. NEURO EXAM: Sedated on ventilator. Moves 4 limbs to command. A/P Assessment and Plan Gluteal muscle and thigh abscess/necrosis - Broad-spectrum antibiotic - Follow-up cultures - General surgery consultation for debridement - ID consult for severe sepsis - Possible bone involvement on MRI. Hyponatremia - Severe dehydration - IV fluids resuscitation per sepsis protocol - Monitor trend Schizoaffective disorder - Depakote - Risperidone Anemia - Transfuse for hemoglobin less than 7 - Monitor trend Anxiety -Hydroxyzine DVT GI prophylaxis - Teds SCDs - Subcutaneous heparin - Pepcid Overall impression: Critically ill and remains in severe sepsis s/p debridement. Unable to wean ventilator. Critical Care 39 mins Tariq Garcia MD Nov 10, 2017 12:19
--- NOTE | 2017-11-10 15:26 | PD.CONS ---
HPI Service NS Consult Requested By Dr Campos Reason for Consult Osteomyelitis of sacrum Primary Care Physician Black Sanchez, DO History of Present Illness is a 41 y/o CM with history of Schizoaffective disorder, on monthly Haldol IM injections in bilateral buttocks. Patient reports getting these as outpatient by unknown doctor (different doctor each time per patient). Approx 1 month back after he received his last Haldol IM shot in right buttock. His medical history is also significant for right dorsum of the foot [place] as a child as well as neuropathy. Apparently he receives intramuscular Haldol in bilateral buttocks. The last right buttock Haldol injection was approximately 1 month ago. He reports having problems with his bladder control. CT scan of the abdomen showed appearance of soft tissue mass of the proximal thigh and gluteal region with fluid and gas tracking down the rectus muscle into the anterior thigh muscle. He presents to the emergency department with generalized weakness, weight loss, and loss of appetite. Had decrease in appetite and loss of about 20 pound weight in the last 1 month. He is currently intubated and mechanical ventilated Apparently has had incontinence of stool and intermittently incontinence of urine since July. Neurosurgery was consulted for evaluation of possible sacral osteomyelitis. Past Family Social History Allergies: Coded Allergies: diphenhydramine (Verified Adverse Reaction, Unknown, 11/08/17) Physical Exam Vital Signs Vital Signs Date Time Temp Pulse Resp B/P (MAP) Pulse Ox O2 Delivery O2 Flow Rate FiO2 11/10/17 14:00 84 11/10/17 12:00 90 11/10/17 12:00 99.9 90 16 97/55 (69) 98 11/10/17 12:00 45 11/10/17 10:58 100 40 11/10/17 10:00 86 11/10/17 08:00 45 11/10/17 08:00 100.1 80 16 87/47 (60) 100 11/10/17 08:00 80 11/10/17 07:26 100 35 11/10/17 07:00 99 Mechanical Ventilator 45 11/10/17 07:00 80 11/10/17 06:00 96 1/25/18 04:18 100 45 11/10/17 04:00 45 11/10/17 04:00 99.5 86 19 87/43 (58) 100 11/10/17 04:00 86 11/10/17 02:00 92 11/10/17 00:00 99.0 101 14 101/53 (69) 100 11/10/17 00:00 101 11/10/17 00:00 50 11/09/17 23:41 100 45 11/09/17 23:00 99 11/09/17 22:00 106 11/09/17 20:00 98.4 101 21 101/57 (72) 100 11/09/17 20:00 101 11/09/17 20:00 50 11/09/17 19:49 100 50 11/09/17 19:00 100 Mechanical Ventilator 50 11/09/17 18:23 50 11/09/17 18:00 102 11/09/17 17:05 100 50 11/09/17 16:45 98.6 100 24 102/61 (75) 100 11/09/17 16:30 103 24 102/61 (75) 100 11/09/17 16:15 102 30 102/52 (69) 100 11/09/17 16:00 106 22 105/53 (70) 100 Mechanical Ventilator 100 11/09/17 15:56 98.6 106 20 102/51 (68) 100 Mechanical Ventilator 100 Physical Exam The patient is intubated and sedated. Localizes to painful stimulus with all 4 extremities. Cranial Nerves: Pupils equal, round, reactive to light. Eyes appear conjugated. There was no nystagmus, no papilledema. Face musculature appeared symmetrical at rest. Face sensation, olfaction, visual ray, and hearing cannot be adequately assessed due to his neurological condition. The patient has a corneal reflex. He has a gag reflex. The sternocleidomastoid and trapezius are symmetrical. Cervical Spine: His neck is soft, supple, without nuchal rigidity. Motor: His muscle tone and bulk are normal. He moves purposefully all 4 extremities symmetrically. Reflexes: Deep tendon reflexes are 1+ and symmetrical in the biceps, triceps, and brachioradialis, bilaterally, in the upper extremities. In the lower extremities, the patellar and ankles are 1+, bilaterally. There is a bilateral plantar flexion response. There is no clonus or other abnormal reflexes noted. Sensory: On examination there is response to painful stimuli, localizing with both upper and lower extremities. Cerebellar: Examination cannot be adequately assessed due to the patient's neurological condition. Laboratory Laboratory Tests Test 11/09/17 21:28 11/10/17 03:58 11/10/17 04:02 C-Reactive Protein 31.80 Hepatitis A IgM Antibody NEGATIVE Hepatitis B Surface Antigen NEGATIVE Hepatitis B Core IgM Antibody NEGATIVE Hepatitis C Antibody NEGATIVE HIV (1&2) Antibody NEGATIVE White Blood Count 13.9 Red Blood Count 2.78 Hemoglobin 7.5 Hematocrit 22.8 Mean Corpuscular Volume 81.9 Mean Corpuscular Hemoglobin 27.0 Mean Corpuscular Hemoglobin Concent 33.0 Red Cell Distribution Width 18.1 Platelet Count 227 Mean Platelet Volume 7.9 Neutrophils (%) (Auto) 88.9 Lymphocytes (%) (Auto) 2.6 Monocytes (%) (Auto) 7.7 Eosinophils (%) (Auto) 0.0 Basophils (%) (Auto) 0.8 Neutrophils # (Auto) 12.4 Lymphocytes # (Auto) 0.4 Monocytes # (Auto) 1.1 Eosinophils # (Auto) 0.0 Basophils # (Auto) 0.1 CBC Comment AUTO DIFF Differential Total Cells Counted 100 Neutrophils % (Manual) 20 Band Neutrophils % 76 Lymphocytes % 1 Monocytes % 1 Neutrophils # (Manual) 13.6 Metamyelocytes 1 Myelocytes 1 Differential Comment FINAL DIFF MANUAL Toxic Granulation 2+ Platelet Estimate NORMAL Platelet Morphology Comment ENLARGED Target Cells 1+ Blood Urea Nitrogen 26 Creatinine 0.83 Random Glucose 99 Calcium Level 7.6 Sodium Level 140 Potassium Level 4.4 Chloride Level 107 Carbon Dioxide Level 24.8 Anion Gap 8 Estimat Glomerular Filtration Rate 103 Blood Gas Puncture Site RT RADIAL Blood Gas Patient Temperature 98.6 Blood Gas HCO3 24 Blood Gas Base Excess -1.8 Blood Gas Oxygen Saturation 97 Arterial Blood pH 7.28 Arterial Blood Partial Pressure CO2 53 Arterial Blood Partial Pressure O2 174 Arterial Blood Oxygen Content 10.9 Arterial Blood Carboxyhemoglobin 0.7 Arterial Blood Methemoglobin 1.0 Blood Gas Hemoglobin 7.7 Oxygen Delivery Device VENTILATOR Blood Gas Ventilator Setting SEE COMMENT Blood Gas Inspired Oxygen 45 Date/Time Source Procedure Growth Status 11/08/17 21:35 Blood Peripheral Aerobic Blood Culture - Preliminary NO GROWTH IN 2 DAYS Resulted 11/08/17 21:35 Anaerobic Blood Culture - Preliminary Gram Positive Cocci Resulted 11/08/17 21:45 Urine Catheterized Urine Urine Culture - Final NO GROWTH IN 48 HOURS. Complete 11/09/17 15:20 Wound Hip Fungal Smear - Final NO FUNGAL ELEMENTS SEEN. Resulted 11/09/17 15:20 Wound Hip Fungal Culture Pending Resulted Result Diagram: 11/10/17 0358 11/10/17 0358 Imaging Last 48 hours Impressions Chest X-Ray 11/09/17 0000 Signed Impressions: Service Date/Time: Thursday, November 09, 2017 16:23 - CONCLUSION: Minimal infiltrate left base new from comparison study. Rodrick Ch MD FACR Lower Extremity Ultrasound 11/08/172011 Signed Impressions: Service Date/Time: Wednesday, November 08, 2017 20:41 - CONCLUSION: 1. Negative for deep venous thrombosis. There are mildly enlarged right inguinal lymph nodes. Bertrand Smalls MD Chest X-Ray 11/08/172011 Signed Impressions: Service Date/Time: Wednesday, November 08, 2017 21:10 - CONCLUSION: 1. Subsegmental airspace disease right lung base. Finding may represent a small bronchopneumonia. Bertrand Smalls MD Abdomen/Pelvis CT 11/08/172011 Signed Impressions: Service Date/Time: Wednesday, November 08, 2017 22:54 - CONCLUSION: 1. Abnormal appearance of the soft tissues of the proximal thigh and gluteal region with fluid and gas tracking between the rectus muscles and the anterior thigh muscles. No focal abnormal areas of enhancement. The combination of fluid and gas suggests either an infectious or necrotic process. 2. Nonobstructing small calcified stone mid pole left kidney and multiple left renal cysts. 3. Small bilateral pleural effusions. Jace Bird MD Attending Statement I reviewed his clinical and radiological studies. Osteomyelitis of the sacrum and iliac bones. No epidural abscess or cord compression. recommend nonoperative treatment oer the neurosurgical standpoint. Continue wound vac. IV antibiotics. Follow up cultures, Continue neuro checks. Pulmonary.. Continue aggressive pulmonary toilette, nasotracheal suction, and breathing treatments with nebulizers. Nutrition. NPO Renal. monitor closely urine output, BUN and creatinine Endocrine. Monitor serial Acu checks and SSI as needed in detail ID monitor for signs of infection Protonix for stress ulcer prophylaxis Carlos hose and SCD's for DVT prophylaxis. Venkatesh Hanley MD Nov 10, 2017 15:26
--- NOTE | 2017-11-10 15:55 | HHI.IDPN ---
Subjective Subjective Remarks is a 41 y/o CM with PMHx of Schizoaffective disorder on Haldol IM injections in bilateral buttocks. Patient reports getting these as outpatient by unknown doctor (different doctor each time per patient). Approx 1 month back after he received his last Haldol IM shot in right buttock patient noticed pain and swelling and decreased range of motion. Patient continued to receive Haldol shots in left buttock due to pain in right buttock. Patient reports his ability to move around has declined since last 1 week and he needs help with ADL phuong dressing himself due to significant pain on right lower extremity. Patient reports fevers chills and night sweats for the last 1 week prior to admission and significant worsening pain and swelling of his right lower extremity. Patient's past medical history is also significant for right dorsum of the foot marsh as a child as well as neuropathy. Per review of records it appears the patient's mother has reported that he hasn't been feeling well since July and has presented to another emergency department related to back and hip pain. The patient was diagnosed with fecal impaction and severe constipation was seen by director of labor relations. Patient reports that he was on a bowel regimen to help with her constipation and that has been a challenge to maintain continence. Patient has had incontinence of stool and intermittently incontinence of urine since July. With this background patient presents to the emergency department for evaluation of difficulty walking, generalized weakness, weight loss loss of appetite. Reportedly while in the triage area his blood pressure was in the 70s systolic. Patient also reported abdominal pain in the lower quadrants radiating to his bilateral lower extremity but more so on the right. Patient reported nausea decrease in appetite and loss of about 20 pound weight in the last 1 month. Patient denies any recent intravenous drug abuse. Patient does endorse to receiving intramuscular Haldol in bilateral buttocks. The last right buttock Haldol injection was approximately 1 month back. Patient reports having weakness of bilateral lower extremities more so on the right especially because of sharp shooting pains down his right leg. In the emergency department patient received a total of 4 L of IV fluids as a part of severe sepsis workup and management. Cultures drawn at admission are currently pending. A CT scan of the abdomen showed appearance of soft tissue mass of the proximal thigh and gluteal region with fluid and gas tracking down the rectus muscle into the anterior thigh muscle. This is concerning for infectious or necrotic process. At the time of my evaluation patient is in the intensive surgical care unit. He has received 4 L of IV fluids normal saline. He has good urine output. Currently awake alert oriented 3, on room air. Infectious disease consulted for evaluation and management of severe sepsis, right buttock abscess possible osteomyelitis. Delayed entry patient seen at approximately 1 PM. Overnight events reviewed. Remains intubated postsurgery with likelihood of going to a repeat washout in a.m. Discussed with Dr. Campos Low-grade fevers overnight. No rash No diarrhea Not on pressors. Blood cultures positive for gram-positive cocci Wound cultures positive for gram negatives Antibiotics Zosyn IV Vancomycin IV Clindamycin IV Lines Line sites with no evidence of infection. Past Medical History Neuropathy involving the right leg h/o marsh right foot dorsum as a child. Schizoaffective disorder, Depressions Anxiety Past Surgical History None per patient. Allergies: Coded Allergies: diphenhydramine (Verified Adverse Reaction, Unknown, 11/08/17) Objective . Vital Signs Date Time Temp Pulse Resp B/P (MAP) Pulse Ox O2 Delivery O2 Flow Rate FiO2 11/10/17 15:29 99 35 11/10/17 15:00 87 11/10/17 14:00 84 11/10/17 12:00 90 11/10/17 12:00 99.9 90 16 97/55 (69) 98 11/10/17 12:00 45 11/10/17 10:58 100 40 11/10/17 10:00 86 11/10/17 08:00 45 11/10/17 08:00 100.1 80 16 87/47 (60) 100 11/10/17 08:00 80 11/10/17 07:26 100 35 11/10/17 07:00 99 Mechanical Ventilator 45 11/10/17 07:00 80 11/10/17 06:00 96 11/10/17 04:18 100 45 11/10/17 04:00 45 11/10/17 04:00 99.5 86 19 87/43 (58) 100 11/10/17 04:00 86 11/10/17 02:00 92 11/10/17 00:00 99.0 101 14 101/53 (69) 100 11/10/17 00:00 101 11/10/17 00:00 50 11/09/17 23:41 100 45 11/09/17 23:00 99 11/09/17 22:00 106 11/09/17 20:00 98.4 101 21 101/57 (72) 100 11/09/17 20:00 101 11/09/17 20:00 50 11/09/17 19:49 100 50 11/09/17 19:00 100 Mechanical Ventilator 50 11/09/17 18:23 50 11/09/17 18:00 102 11/09/17 17:05 100 50 11/09/17 16:45 98.6 100 24 102/61 (75) 100 11/09/17 16:30 103 24 102/61 (75) 100 11/09/17 16:15 102 30 102/52 (69) 100 11/09/17 16:00 106 22 105/53 (70) 100 Mechanical Ventilator 100 11/09/17 15:56 98.6 106 20 102/51 (68) 100 Mechanical Ventilator 100 . Laboratory Tests Test 11/08/17 20:03 11/09/17 02:37 11/10/17 03:58 White Blood Count 15.8 TH/MM3 10.2 TH/MM3 13.9 TH/MM3 Red Blood Count 3.40 MIL/MM3 3.04 MIL/MM3 2.78 MIL/MM3 Hemoglobin 9.0 GM/DL 8.4 GM/DL 7.5 GM/DL Hematocrit 27.9 % 24.5 % 22.8 % Mean Corpuscular Volume 82.1 FL 80.4 FL 81.9 FL Mean Corpuscular Hemoglobin 26.6 PG 27.5 PG 27.0 PG Mean Corpuscular Hemoglobin Concent 32.4 % 34.2 % 33.0 % Red Cell Distribution Width 18.0 % 18.2 % 18.1 % Platelet Count 473 TH/MM3 336 TH/MM3 227 TH/MM3 Mean Platelet Volume 7.0 FL 6.8 FL 7.9 FL Neutrophils (%) (Auto) 91.0 % 88.1 % 88.9 % Lymphocytes (%) (Auto) 1.8 % 2.5 % 2.6 % Monocytes (%) (Auto) 6.6 % 4.7 % 7.7 % Eosinophils (%) (Auto) 0.3 % 4.6 % 0.0 % Basophils (%) (Auto) 0.3 % 0.1 % 0.8 % Neutrophils # (Auto) 14.4 TH/MM3 9.0 TH/MM3 12.4 TH/MM3 Lymphocytes # (Auto) 0.3 TH/MM3 0.3 TH/MM3 0.4 TH/MM3 Monocytes # (Auto) 1.1 TH/MM3 0.5 TH/MM3 1.1 TH/MM3 Eosinophils # (Auto) 0.0 TH/MM3 0.5 TH/MM3 0.0 TH/MM3 Basophils # (Auto) 0.1 TH/MM3 0.0 TH/MM3 0.1 TH/MM3 CBC Comment AUTO DIFF AUTO DIFF AUTO DIFF Differential Total Cells Counted 100 100 100 Neutrophils % (Manual) 60 % 23 % 20 % Band Neutrophils % 28 % 17 % 76 % Lymphocytes % 3 % 1 % Monocytes % 5 % 1 % 1 % Neutrophils # (Manual) 14.5 TH/MM3 10.1 TH/MM3 13.6 TH/MM3 Metamyelocytes 4 % 53 % 1 % Differential Comment FINAL DIFF MANUAL FINAL DIFF MANUAL FINAL DIFF MANUAL Toxic Granulation 1+ 2+ Toxic Vacuolation PRESENT PRESENT Dohle Bodies PRESENT PRESENT Platelet Estimate HIGH NORMAL NORMAL Platelet Morphology Comment NORMAL NORMAL ENLARGED Spherocytes 1+ Acanthocytes OCC Erythrocyte Sedimentation Rate 71 mm/hr Myelocytes 6 % 1 % Target Cells 1+ 1+ Laboratory Tests Test 11/08/17 20:00 11/08/17 20:03 11/08/17 23:15 11/09/17 02:37 Lactic Acid Level 9.1 mmol/L 4.5 mmol/L 2.7 mmol/L Blood Urea Nitrogen 27 MG/DL 22 MG/DL Creatinine 0.96 MG/DL 0.55 MG/DL Random Glucose 72 MG/DL 72 MG/DL Total Protein 6.3 GM/DL 4.9 GM/DL Albumin 1.6 GM/DL 1.3 GM/DL Calcium Level 8.9 MG/DL 7.4 MG/DL Magnesium Level 2.2 MG/DL 1.8 MG/DL Alkaline Phosphatase 116 U/L 77 U/L Aspartate Amino Transf (AST/SGOT) 30 U/L 30 U/L Alanine Aminotransferase (ALT/SGPT) 15 U/L 13 U/L Total Bilirubin 0.3 MG/DL 0.3 MG/DL Sodium Level 125 MEQ/L 133 MEQ/L Potassium Level 5.0 MEQ/L 4.2 MEQ/L Chloride Level 85 MEQ/L 98 MEQ/L Carbon Dioxide Level 25.4 MEQ/L 24.1 MEQ/L Anion Gap 15 MEQ/L 11 MEQ/L Estimat Glomerular Filtration Rate 87 ML/MIN 166 ML/MIN Total Creatine Kinase 59 U/L 143 U/L Troponin I LESS THAN 0.02 NG/ML C-Reactive Protein 31.00 MG/DL B-Type Natriuretic Peptide 199 PG/ML Lipase 43 U/L Phosphorus Level 4.3 MG/DL Protein Corrected Calcium 8.6 MG/DL Test 11/09/17 05:16 11/09/17 21:28 11/10/17 03:58 Lactic Acid Level 2.3 mmol/L C-Reactive Protein 31.80 MG/DL Blood Urea Nitrogen 26 MG/DL Creatinine 0.83 MG/DL Random Glucose 99 MG/DL Calcium Level 7.6 MG/DL Sodium Level 140 MEQ/L Potassium Level 4.4 MEQ/L Chloride Level 107 MEQ/L Carbon Dioxide Level 24.8 MEQ/L Anion Gap 8 MEQ/L Estimat Glomerular Filtration Rate 103 ML/MIN Microbiology Date/Time Source Procedure Growth Status 11/08/17 21:35 Blood Peripheral Aerobic Blood Culture - Preliminary NO GROWTH IN 2 DAYS Resulted 11/08/17 21:35 Anaerobic Blood Culture - Preliminary Gram Positive Cocci Resulted 11/08/17 21:30 Blood Peripheral Aerobic Blood Culture - Preliminary Staph Sp Coagulase Negative Resulted 11/08/17 21:30 Anaerobic Blood Culture - Preliminary Gram Positive Cocci Resulted 11/08/17 21:45 Urine Catheterized Urine Urine Culture - Final NO GROWTH IN 48 HOURS. Complete 11/09/17 15:20 Wound Hip Fungal Smear - Final NO FUNGAL ELEMENTS SEEN. Resulted 11/09/17 15:20 Wound Hip Fungal Culture Pending Resulted 11/09/17 15:20 Wound Hip Acid Fast Stain Pending Received 11/09/17 15:20 Wound Hip Mycobacterial Culture Pending Received 11/09/17 15:20 Wound Hip Gram Stain - Final Resulted 11/09/17 15:20 Wound Culture - Preliminary Gram Negative Carlos Resulted Imaging Last Impressions Chest X-Ray 11/09/17 0000 Signed Impressions: Service Date/Time: Thursday, November 09, 2017 16:23 - CONCLUSION: Minimal infiltrate left base new from comparison study. Rodrick Ch MD FACR Lower Extremity Ultrasound 11/08/172011 Signed Impressions: Service Date/Time: Wednesday, November 08, 2017 20:41 - CONCLUSION: 1. Negative for deep venous thrombosis. There are mildly enlarged right inguinal lymph nodes. Bertrand Smalls MD Abdomen/Pelvis CT 11/08/172011 Signed Impressions: Service Date/Time: Wednesday, November 08, 2017 22:54 - CONCLUSION: 1. Abnormal appearance of the soft tissues of the proximal thigh and gluteal region with fluid and gas tracking between the rectus muscles and the anterior thigh muscles. No focal abnormal areas of enhancement. The combination of fluid and gas suggests either an infectious or necrotic process. 2. Nonobstructing small calcified stone mid pole left kidney and multiple left renal cysts. 3. Small bilateral pleural effusions. Jace Bird MD Thoracic Spine MRI 11/08/17 Signed Impressions: Service Date/Time: Wednesday, November 08, 2017 22:01 - CONCLUSION: 1. Small bilateral pleural effusions. 2. No signal abnormalities in the thoracic vertebral bodies and no evidence of focal disc disease. Jace Bird MD Lumbar Spine MRI 11/08/17 Signed Impressions: Service Date/Time: Wednesday, November 08, 2017 22:01 - CONCLUSION: 1. No evidence of lumbar disc disease. 2. Soft tissue abnormality about the right gluteal region suggesting abscess with T2 prolongation and contrast enhancement ; this is incompletely included in the [id number] of the exam. 3. There is also abnormal signal within the marrow of the sacral and coccygeal marrow including contrast enhancement suggesting that the right thigh and gluteal abnormality may extend intraosseous, possibly osteomyelitis. Jace Bird MD Physical Exam GENERAL: Thin built, poorly nourished patient, in no apparent distress. SKIN: No rashes, ecchymoses or lesions. Cool and dry. HEAD: Atraumatic. Normocephalic. No temporal or scalp tenderness. EYES: Pupils equal round and reactive. Extraocular motions intact. No scleral icterus. No injection or drainage. ENT: Intubated. NECK: Trachea midline. Supple, nontender, no meningeal signs. CARDIOVASCULAR: HS audible. RESPIRATORY: Wheezing bilaterally. Basilar crackles. GASTROINTESTINAL: Abdomen soft, non-tender, nondistended. MUSCULOSKELETAL: The entire right lower extremity is significantly swollen compared to the left lower extremity. Decreased range of motion at the hip and knee as well as ankle joint due to significant pain. There is pitting edema noted at the thigh level. There is some skin lesions which appear like dry scab lesions on the thigh as well as in other parts of the body. There is some erythema induration and swelling as well as tenderness noted in the right thigh. Patient unable to turn due to pain. Wound VAC is in place. Pitting edema noted. NEUROLOGICAL: Sedated. Psych cooperative IV line sites with no e.o infection. Assessment & Plan Remarks Severe sepsis present on admission. Staph coag neg bacteremia GNR right thigh abscess/osteomyelitis Right thigh abscess possible myositis, osteomyelitis. Schizoaffective disorder receives IM Haldol injections in the buttocks. Lower extremity neuropathy. Weight loss, loss of appetite:? Due to chronic infection versus rule out HIV. Recommendations: Continue Zosyn IV Continue Vanco IV (target 15-20 for osteomyelitis) Discontinue Clinda IV discussed with Dr. Campos no clinical evidence of necrotizing fasciitis. Evaluated with ortho and neurosx other than wash out of surgical area no plans for hip bone or spinal surgeries. Rest of the disease medical Mment with IV antibiotics unless persistent fevers. Follow cultures Follow clinically. d/w [facility] María Salmeron MD Nov 10, 2017 15:55
--- NOTE | 2017-11-10 16:14 | HHI.PR ---
cc: Susan Campos MD Subjective Subjective Notes DAILY PROGRESS NOTE FOR SURGICAL ATTENDING, DR. SUSAN CAMPOS Patient seen in ICU On ventilator Mother at bedside Objective Vitals/I&O Vital Signs Date Time Temp Pulse Resp B/P (MAP) Pulse Ox O2 Delivery O2 Flow Rate FiO2 11/10/17 15:29 99 35 11/10/17 15:00 87 11/10/17 12:00 99.9 16 97/55 (69) 11/10/17 07:00 Mechanical Ventilator Labs Laboratory Tests Test 11/09/17 21:28 11/10/17 03:58 11/10/17 04:02 C-Reactive Protein 31.80 Hepatitis A IgM Antibody NEGATIVE Hepatitis B Surface Antigen NEGATIVE Hepatitis B Core IgM Antibody NEGATIVE Hepatitis C Antibody NEGATIVE HIV (1&2) Antibody NEGATIVE White Blood Count 13.9 Red Blood Count 2.78 Hemoglobin 7.5 Hematocrit 22.8 Mean Corpuscular Volume 81.9 Mean Corpuscular Hemoglobin 27.0 Mean Corpuscular Hemoglobin Concent 33.0 Red Cell Distribution Width 18.1 Platelet Count 227 Mean Platelet Volume 7.9 Neutrophils (%) (Auto) 88.9 Lymphocytes (%) (Auto) 2.6 Monocytes (%) (Auto) 7.7 Eosinophils (%) (Auto) 0.0 Basophils (%) (Auto) 0.8 Neutrophils # (Auto) 12.4 Lymphocytes # (Auto) 0.4 Monocytes # (Auto) 1.1 Eosinophils # (Auto) 0.0 Basophils # (Auto) 0.1 CBC Comment AUTO DIFF Differential Total Cells Counted 100 Neutrophils % (Manual) 20 Band Neutrophils % 76 Lymphocytes % 1 Monocytes % 1 Neutrophils # (Manual) 13.6 Metamyelocytes 1 Myelocytes 1 Differential Comment FINAL DIFF MANUAL Toxic Granulation 2+ Platelet Estimate NORMAL Platelet Morphology Comment ENLARGED Target Cells 1+ Blood Urea Nitrogen 26 Creatinine 0.83 Random Glucose 99 Calcium Level 7.6 Sodium Level 140 Potassium Level 4.4 Chloride Level 107 Carbon Dioxide Level 24.8 Anion Gap 8 Estimat Glomerular Filtration Rate 103 Blood Gas Puncture Site RT RADIAL Blood Gas Patient Temperature 98.6 Blood Gas HCO3 24 Blood Gas Base Excess -1.8 Blood Gas Oxygen Saturation 97 Arterial Blood pH 7.28 Arterial Blood Partial Pressure CO2 53 Arterial Blood Partial Pressure O2 174 Arterial Blood Oxygen Content 10.9 Arterial Blood Carboxyhemoglobin 0.7 Arterial Blood Methemoglobin 1.0 Blood Gas Hemoglobin 7.7 Oxygen Delivery Device VENTILATOR Blood Gas Ventilator Setting SEE COMMENT Blood Gas Inspired Oxygen 45 Date/Time Source Procedure Growth Status 11/08/17 21:35 Blood Peripheral Aerobic Blood Culture - Preliminary NO GROWTH IN 2 DAYS Resulted 11/08/17 21:35 Anaerobic Blood Culture - Preliminary Gram Positive Cocci Resulted 11/08/17 21:45 Urine Catheterized Urine Urine Culture - Final NO GROWTH IN 48 HOURS. Complete 11/09/17 15:20 Wound Hip Fungal Smear - Final NO FUNGAL ELEMENTS SEEN. Resulted 11/09/17 15:20 Wound Hip Fungal Culture Pending Resulted Radiology Last Impressions Chest X-Ray 11/09/17 0000 Signed Impressions: Service Date/Time: Thursday, November 09, 2017 16:23 - CONCLUSION: Minimal infiltrate left base new from comparison study. Rodrick Ch MD FACR Lower Extremity Ultrasound 11/08/172011 Signed Impressions: Service Date/Time: Wednesday, November 08, 2017 20:41 - CONCLUSION: 1. Negative for deep venous thrombosis. There are mildly enlarged right inguinal lymph nodes. Susan Smalls MD Abdomen/Pelvis CT 11/08/172011 Signed Impressions: Service Date/Time: Wednesday, November 08, 2017 22:54 - CONCLUSION: 1. Abnormal appearance of the soft tissues of the proximal thigh and gluteal region with fluid and gas tracking between the rectus muscles and the anterior thigh muscles. No focal abnormal areas of enhancement. The combination of fluid and gas suggests either an infectious or necrotic process. 2. Nonobstructing small calcified stone mid pole left kidney and multiple left renal cysts. 3. Small bilateral pleural effusions. Jace Bird MD Thoracic Spine MRI 11/08/17 0000 Signed Impressions: Service Date/Time: Wednesday, November 08, 2017 22:01 - CONCLUSION: 1. Small bilateral pleural effusions. 2. No signal abnormalities in the thoracic vertebral bodies and no evidence of focal disc disease. Jace Bird MD Lumbar Spine MRI 11/08/17 0000 Signed Impressions: Service Date/Time: Wednesday, November 08, 2017 22:01 - CONCLUSION: 1. No evidence of lumbar disc disease. 2. Soft tissue abnormality about the right gluteal region suggesting abscess with T2 prolongation and contrast enhancement ; this is incompletely included in the [id number] of the exam. 3. There is also abnormal signal within the marrow of the sacral and coccygeal marrow including contrast enhancement suggesting that the right thigh and gluteal abnormality may extend intraosseous, possibly osteomyelitis. Jace Bird MD Cardiovascular: Regular Lungs: Upper airway course sound, Other (ventilator) Abdomen: Non-distended Extremities: Other (edema right lower extremity slightly decreased VAC in place right hip) Wound Wound : Wound Location: Right leg Dressing: VAC A/P Problem List: (1) Right leg swelling ICD Codes: M79.89 - Other specified soft tissue disorders Status: Acute (2) Abscess of gluteal region ICD Codes: L02.31 - Cutaneous abscess of buttock (3) Abscess of right hip ICD Codes: L02.415 - Cutaneous abscess of right lower limb (4) Neurogenic urinary incontinence ICD Codes: N39.498 - Other specified urinary incontinence Assessment and Plan 41-year-old gentleman who has a psychiatric diagnosis requiring Haldol on a monthly basis. It appears he developed a right hip abscess fairly extensive which is been drained at this time. Reviewed case with orthopedic surgery Dr. Dan because of the proximity of the right hip Reviewed the case with neurosurgery Dr. Hanley he will see the patient Discussed with Dr. Guillen infectious disease Discussed with Dr. Garcia critical care Discussed with mother at the bedside At this time plan returning to the operating room tomorrow to remove drain and reassess Susan Campos MD Nov 10, 2017 16:14
[2017-11-10] MEDS ORDERED: PHARMACY ORDERED LAB ONE (16:45)
[2017-11-11] VITALS (23 sets, daily range): BP systolic 97–111; BP diastolic 52–60; PULSE 72–87; RESP 16; TEMP 99.1–101.5; O2SAT 91–100
[2017-11-11] MEDS: CHLORHEXIDINE GLUCONATE 2 % 1 PACK (2 CLOTHS) TOP SCH (00:09)
[2017-11-11] MEDS: SODIUM CHLOR 0.9% 1000 ML INJ 1,000 ML IV SCH ×3 (00:11→17:43)
[2017-11-11] MEDS: PIPERACIL-TAZO 4.5 GM PREMIX 100 ML IV SCH ×4 (02:55→22:08)
[2017-11-11] MEDS: PROPOFOL 1000 MG/100 ML IV PRN ×5 (02:55→21:34)
[2017-11-11] MEDS: ACETAMINOPHEN 325 MG TAB PO PRN (04:42)
[2017-11-11] MEDS: CHLORHEXIDINE 0.12% (ORAL KIT) 15 ML CUP MT SCH ×2 (08:10→20:00)
[2017-11-11] MEDS: FAMOTIDINE 20 MG/2 ML VIAL IV PUSH SCH ×2 (08:30→21:03)
[2017-11-11] MEDS: VALPROIC ACID SYRUP 250 MG/5 ML UDC OG-TUBE SCH ×2 (08:30→21:02)
[2017-11-11] MEDS: hydrOXYzine HCL 50 MG TAB PO SCH ×2 (08:30→21:02)
[2017-11-11] MEDS: risperiDONE 3 MG TAB PO SCH (08:30)
[2017-11-11] MEDS: SODIUM CHLORIDE 0.9% FLUSH 10 ML FLUSH IV FLUSH SCH ×2 (08:30→21:00)
--- NOTE | 2017-11-11 09:26 | HHI.NSPN ---
(Sarika Dawson) Note Status Status: Progress Note (Sarika Dawson) Interval History Interval History is a 41 y/o CM with history of Schizoaffective disorder, on monthly Haldol IM injections in bilateral buttocks. Patient reports getting these as outpatient by unknown doctor (different doctor each time per patient). Approx 1 month back after he received his last Haldol IM shot in right buttock. His medical history is also significant for right dorsum of the foot [place] as a child as well as neuropathy. Apparently he receives intramuscular Haldol in bilateral buttocks. The last right buttock Haldol injection was approximately 1 month ago. He reports having problems with his bladder control. CT scan of the abdomen showed appearance of soft tissue mass of the proximal thigh and gluteal region with fluid and gas tracking down the rectus muscle into the anterior thigh muscle. He presents to the emergency department with generalized weakness, weight loss, and loss of appetite. Had decrease in appetite and loss of about 20 pound weight in the last 1 month. He is currently intubated and mechanical ventilated Apparently has had incontinence of stool and intermittently incontinence of urine since July. Neurosurgery was consulted for evaluation of possible sacral osteomyelitis. 11/11: remains intubated, and well sedated. returning to OR today with Dr. Campos for hip abscess (Sarika Dawson) Labs, Micro, & Vital Signs Results Date Time Temp Pulse Resp B/P (MAP) Pulse Ox O2 Delivery O2 Flow Rate FiO2 11/11/17 07:44 99 35 11/11/17 06:00 87 11/11/17 04:00 35 11/11/17 04:00 81 11/11/17 04:00 101.5 78 16 97/60 (72) 96 11/11/17 03:26 97 35 11/11/17 02:00 81 11/11/17 00:00 100.7 78 16 103/52 (69) 98 11/11/17 00:00 80 11/11/17 00:00 35 11/10/17 23:49 98 35 11/10/17 23:00 77 11/10/17 22:35 97 35 11/10/17 22:00 79 11/10/17 21:04 98 35 11/10/17 20:00 78 11/10/17 20:00 35 11/10/17 20:00 100.6 78 16 97/52 (67) 98 11/10/17 19:00 98 Mechanical Ventilator 35 11/10/17 18:00 82 11/10/17 16:00 92 11/10/17 16:00 100.7 92 23 102/57 (72) 100 11/10/17 16:00 45 11/10/17 15:29 99 35 11/10/17 15:00 87 11/10/17 14:00 84 11/10/17 12:00 90 11/10/17 12:00 99.9 90 16 97/55 (69) 98 11/10/17 12:00 45 11/10/17 10:58 100 40 11/10/17 10:00 86 Constitutional Vital Signs Date Time Temp Pulse Resp B/P (MAP) Pulse Ox O2 Delivery O2 Flow Rate FiO2 11/11/17 07:44 99 35 11/11/17 06:00 87 11/11/17 04:00 35 11/11/17 04:00 81 11/11/17 04:00 101.5 78 16 97/60 (72) 96 11/11/17 03:26 97 35 11/11/17 02:00 81 11/11/17 00:00 100.7 78 16 103/52 (69) 98 11/11/17 00:00 80 11/11/17 00:00 35 11/10/17 23:49 98 35 11/10/17 23:00 77 11/10/17 22:35 97 35 11/10/17 22:00 79 11/10/17 21:04 98 35 11/10/17 20:00 78 11/10/17 20:00 35 11/10/17 20:00 100.6 78 16 97/52 (67) 98 11/10/17 19:00 98 Mechanical Ventilator 35 11/10/17 18:00 82 11/10/17 16:00 92 11/10/17 16:00 100.7 92 23 102/57 (72) 100 11/10/17 16:00 45 11/10/17 15:29 99 35 1/25/18 15:00 87 11/10/17 14:00 84 11/10/17 12:00 90 11/10/17 12:00 99.9 90 16 97/55 (69) 98 11/10/17 12:00 45 11/10/17 10:58 100 40 11/10/17 10:00 86 (Sarika Dawson) Review of Systems ROS Limitations: Intubated (Sarika Dawson) Physical Exam Mr. Price is intubated and well sedated. Cranial Nerves: Pupils 4mm equal, round, reactive to light. Eyes appear conjugated. Face musculature appeared symmetrical at rest. Cervical Spine: soft, supple, without nuchal rigidity. Motor: not following for testing Reflexes: bilateral plantar flexion response. No ankle clonus. Cerebellar: Examination cannot be adequately assessed due to the patient's neurological condition. Wound vac in place into right hip. Skin: warm and dry. Heart: NSR on monitor Lungs: clear (Sarika Dawson) Mr. Price is intubated and well sedated. Cranial Nerves: Pupils 4mm equal, round, reactive to light. Eyes appear conjugated. Face musculature appeared symmetrical at rest. Cervical Spine: soft, supple, without nuchal rigidity. Motor: not following for testing Reflexes: bilateral plantar flexion response. No ankle clonus. Cerebellar: Examination cannot be adequately assessed due to the patient's neurological condition. Wound vac in place into right hip. Skin: warm and dry. Heart: NSR on monitor Lungs: clear (Venkatesh Hanley MD) Medications Current Medications Current Medications Medications (Trade) Dose Ordered Sig/Mega Route PRN Reason Start Time Stop Time Status Last Admin Dose Admin Divalproex Sodium (Depakote Dr) 500 mg BID PO 11/09/17 09:00 Future Hold 11/09/17 09:22 Hydroxyzine HCl (Atarax) 50 mg BID PO 11/09/17 09:00 11/11/17 08:30 Risperidone (risperDAL) 3 mg DAILY PO 11/09/17 09:00 11/11/17 08:30 Sodium Chloride (NS Flush) 2 ml UNSCH PRN IV FLUSH FLUSH AFTER USING IV ACCESS 11/08/17 23:15 Sodium Chloride (NS Flush) 2 ml BID IV FLUSH 11/09/17 09:00 11/11/17 08:30 Acetaminophen (Tylenol) 650 mg Q6H PRN PO PAIN 1-10 AND/OR FEVER >101F 11/08/17 23:15 11/11/17 04:42 Famotidine (Pepcid Inj) 20 mg Q12HR IV PUSH 11/09/17 09:00 11/11/17 08:30 Ondansetron HCl (Zofran Inj) 4 mg Q6H PRN IV PUSH NAUSEA OR VOMITING 11/08/17 23:15 Temazepam (Restoril) 15 mg HS PRN PO INSOMNIA 11/08/17 23:15 Albuterol/ Ipratropium (Duoneb Neb) 1 ampule Q2HR NEB PRN INH WHEEZING 11/08/17 23:15 Miscellaneous Information 1 Q361D XX 11/08/17 23:15 11/08/17 01:00 Chlorhexidine Gluconate (Chlorhexidine 2% Cloth) 3 pack Taper DAILY@04 TOP 11/09/17 04:00 11/05/18 03:59 Chlorhexidine Gluconate (Chlorhexidine 2% Cloth) 3 pack UNSCH PRN TOP HYGIENIC CARE 11/08/17 23:15 Piperacillin Sod/ Tazobactam Sod 100 ml @ 200 mls/hr Q6H IV 11/09/17 03:00 11/11/17 08:29 Sodium Chloride 1,000 ml @ 125 mls/hr Q8H IV 11/09/17 09:00 11/11/17 08:29 Pharmacy Profile Note 0 ml @ 0 mls/hr UNSCH OTHER 11/09/17 12:30 Vancomycin HCl 1500 mg/Sodium Chloride 515 ml @ 257.5 mls/ hr Q8H IV 11/09/17 17:00 Future Hold 11/10/17 17:46 Propofol 100 ml @ 10.83 mls/ hr TITRATE PRN IV SEDATION 11/09/17 16:30 11/11/17 06:18 Chlorhexidine Gluconate (Peridex 0.12% Liq) 15 ml BID@08,20 MT 11/09/17 20:00 11/11/17 08:10 Propofol 100 ml @ 2.166 mls/ hr TITRATE PRN IV SEDATION 11/09/17 17:45 Fentanyl Citrate 250 ml @ 5 mls/hr TITRATE PRN IV SEDATION 11/09/17 17:45 11/09/17 23:04 Valproic Acid (Depakene Liq) 500 mg BID OG-TUBE 11/09/17 23:00 11/11/17 08:30 (Sarika Dawson) Current Medications Current Medications Sodium Chloride 1,000 ml @ 1,000 mls/hr Q1H ONCE IV Last administered on at 20:28; Start 11/08/17 at 20:15; Stop 11/08/17 at 21:14; Status DC Sodium Chloride 1,000 ml @ 1,000 mls/hr Q1H ONCE IV Last administered on at 20:28; Start 11/08/17 at 20:15; Stop 11/08/17 at 21:14; Status DC Ondansetron HCl (Zofran Inj) 4 mg ONCE ONCE IV Last administered on 11/08/17at 20:29; Start 11/08/17 at 20:15; Stop 11/08/17 at 20:17; Status DC Sodium Chloride 1,000 ml @ 1,000 mls/hr Q1H ONCE IV ; Start 11/08/17 at 21:12; Stop 11/08/17 at 22:11; Status DC Sodium Chloride 1,000 ml @ 1,000 mls/hr Q1H ONCE IV ; Start 11/08/17 at 21:12; Stop 11/08/17 at 22:11; Status DC Sodium Chloride 400 ml @ 1,000 mls/hr Q24M ONCE IV Last administered on at 21:24; Start 11/08/17 at 21:12; Stop 11/08/17 at 21:35; Status DC Piperacillin Sod/ Tazobactam Sod 50 ml @ 100 mls/hr Q12H IV Last administered on 11/08/17at 21:49; Start 11/08/17 at 21:30; Stop 11/08/17 at 23:39; Status DC Vancomycin/Sodium Chloride 200 ml @ 200 mls/hr DIP UNIT OPERATOR IV ; Start 11/08/17 at 21:30; Stop 11/09/17 at 13:53; Status DC Sodium Chloride 1,000 ml @ 1,000 mls/hr Q1H ONCE IV Last administered on at 23:20; Start 11/08/17 at 22:15; Stop 11/08/17 at 23:14; Status DC Iohexol (Omnipaque 350 Inj) 85 ml STK-MED ONCE IVCONTRAST Last administered on 11/08/17at 23:07; Start 11/08/17 at 23:07; Stop 11/08/17 at 23:08; Status DC Divalproex Sodium (Depakote Dr) 500 mg BID PO Last administered on 11/09/17at 09 :22; Start 11/09/17 at 09:00; Status Future Hold Hydroxyzine HCl (Atarax) 50 mg BID PO Last administered on 11/15/17at 20:53; Start 11/09/17 at 09:00 Risperidone (risperDAL) 3 mg DAILY PO Last administered on 11/13/17at 08:02; Start 11/09/17 at 09:00; Status Future Hold Sodium Chloride (NS Flush) 2 ml UNSCH PRN IV FLUSH FLUSH AFTER USING IV ACCESS ; Start 11/08/17 at 23:15 Sodium Chloride (NS Flush) 2 ml BID IV FLUSH Last administered on 11/16/17at 08: 28; Start 11/09/17 at 09:00 Acetaminophen (Tylenol) 650 mg Q6H PRN PO PAIN 1-10 AND/OR FEVER >101F Last administered on 11/11/17at 04:42; Start 11/08/17 at 23:15 Famotidine (Pepcid Inj) 20 mg Q12HR IV PUSH Last administered on 11/16/17at 08: 28; Start 11/09/17 at 09:00 Ondansetron HCl (Zofran Inj) 4 mg Q6H PRN IV PUSH NAUSEA OR VOMITING; Start at 23:15 Temazepam (Restoril) 15 mg HS PRN PO INSOMNIA; Start 11/08/17 at 23:15 Albuterol/ Ipratropium (Duoneb Neb) 1 ampule Q2HR NEB PRN INH WHEEZING Last administered on 11/13/17at 19:45; Start 11/08/17 at 23:15 Heparin Sodium (Porcine) (Heparin Inj) 5,000 units Q8H SQ ; Start 11/08/17 at 23 :15; Stop 11/09/17 at 08:21; Status DC Miscellaneous Information 1 Q361D XX Last administered on 11/08/17at 01:00; Start 11/08/17 at 23:15 Chlorhexidine Gluconate (Chlorhexidine 2% Cloth) Taper DAILY@04 TOP ; Start at 04:00; Stop 11/05/18 at 03:59 Chlorhexidine Gluconate (Chlorhexidine 2% Cloth) 3 pack UNSCH PRN TOP HYGIENIC CARE; Start 11/08/17 at 23:15 Vancomycin HCl 1000 mg/Sodium Chloride 250 ml @ 250 mls/hr Q12H IV ; Start at 23:15; Status UNV Piperacillin Sod/ Tazobactam Sod 100 ml @ 200 mls/hr Q6H IV Last administered on 11/14/17at 03:26; Start 11/09/17 at 03:00; Stop 11/14/17 at 08:49; Status DC Sodium Chloride 1,000 ml @ 1,000 mls/hr Q1H ONCE IV ; Start 11/08/17 at 23:12; Stop 11/09/17 at 00:11; Status DC Sodium Chloride 1,000 ml @ 1,000 mls/hr Q1H ONCE IV ; Start 11/08/17 at 23:12; Stop 11/09/17 at 00:11; Status DC Sodium Chloride 400 ml @ 1,000 mls/hr Q24M ONCE IV ; Start 11/08/17 at 23:12; Stop 11/08/17 at 23:35; Status DC Gadodiamide (Omniscan Pf Inj) 15 ml STK-MED ONCE IV PUSH Last administered on at 23:27; Start 11/08/17 at 23:27; Stop 11/08/17 at 23:28; Status DC Vancomycin HCl 1000 mg/Sodium Chloride 250 ml @ 250 mls/hr Q12H IV Last administered on 11/09/17at 11:55; Start 11/09/17 at 00:00; Stop 11/09/17 at 13:52 ; Status DC Metronidazole 100 ml @ 100 mls/hr ONCE ONCE IV Last administered on at 02:18; Start 11/09/17 at 00:15; Stop 11/09/17 at 01:14; Status DC Clindamycin/ Sodium Chloride 50 ml @ 100 mls/hr Q6H IV Last administered on at 12:14; Start 11/09/17 at 06:00; Stop 11/10/17 at 16:03; Status DC Sodium Chloride 1,000 ml @ 999 mls/hr BOLUS ONCE IV ; Start 11/09/17 at 09:00 ; Stop 11/09/17 at 10:00; Status DC Sodium Chloride 1,000 ml @ 125 mls/hr Q8H IV Last administered on 11/12/17at 09 :00; Start 11/09/17 at 09:00; Stop 11/12/17 at 16:33; Status DC Pharmacy Profile Note 0 ml @ 0 mls/hr UNSCH OTHER ; Start 11/09/17 at 12:30; Stop 11/14/17 at 08:49; Status DC Vancomycin HCl 1500 mg/Sodium Chloride 515 ml @ 257.5 mls/ hr Q8H IV Last administered on 11/10/17at 17:46; Start 11/09/17 at 17:00; Stop 11/11/17 at 17:34 ; Status DC Miscellaneous Information SPECIFIC LAB TO BE DRAWN:VANCOMYCIN TROUGH DATE TO... ONCE ONCE .XX Last administered on 11/10/17at 16:45; Start 11/10/17 at 16:45; Stop 11/10/17 at 16:46; Status DC Bupivacaine HCl/ Epinephrine Bitart (Sensorcaine-Epinephrine 0.25% Inj) 50 ml STK-MED ONCE .ROUTE Last administered on 11/09/17at 15:02; Start 11/09/17 at 14: 59; Stop 11/09/17 at 15:00; Status DC Propofol 100 ml @ As Directed STK-MED ONCE .ROUTE ; Start 11/09/17 at 15:45; Stop 11/09/17 at 15:46; Status DC Propofol 100 ml @ 10.83 mls/ hr TITRATE PRN IV SEDATION Last administered on at 06:06; Start 11/09/17 at 16:30; Stop 11/13/17 at 20:26; Status DC Miscellaneous Information (RASS Change Order) 1 ea ONCE ONCE XX Last administered on 11/09/17at 17:19; Start 11/09/17 at 16:30; Stop 11/09/17 at 16:32 ; Status DC Miscellaneous Information ALL NURSING DEPARTME... UNSCH PRN .XX SEE LABEL COMMENTS; Start 11/09/17 at 16:00; Stop 11/10/17 at 15:59; Status DC Midazolam HCl (Versed Inj) 2 mg STK-MED ONCE .ROUTE ; Start 11/09/17 at 16:25; Stop 11/09/17 at 16:26; Status DC Fentanyl Citrate (fentaNYL INJ) 200 mcg STK-MED ONCE .ROUTE ; Start 11/09/17 at 16:26; Stop 11/09/17 at 16:27; Status DC Chlorhexidine Gluconate (Peridex 0.12% Liq) 15 ml BID@08,20 MT Last administered on 11/15/17at 20:00; Start 11/09/17 at 20:00 Propofol 100 ml @ 2.166 mls/ hr TITRATE PRN IV SEDATION; Start 11/09/17 at 17: 45; Stop 11/13/17 at 20:26; Status DC Fentanyl Citrate 250 ml @ 5 mls/hr TITRATE PRN IV SEDATION Last administered on 11/13/17at 06:06; Start 11/09/17 at 17:45; Stop 11/13/17 at 20:26; Status DC Valproic Acid (Depakene Liq) 500 mg BID OG-TUBE Last administered on 11/13/17at 08:02; Start 11/09/17 at 23:00; Status Future Hold Lactated Ringer's 1,000 ml @ As Directed STK-MED ONCE IV ; Start 11/09/17 at 12 :00; Stop 11/11/17 at 11:48; Status DC Lidocaine HCl (Xylocaine-Mpf 1% Inj) 5 ml STK-MED ONCE OTHER ; Start 11/09/17 at 12:00; Stop 11/11/17 at 11:48; Status DC Rocuronium [place] (Zemuron Inj) 50 mg STK-MED ONCE IV PUSH ; Start 11/09/17 at 12:00; Stop 11/11/17 at 11:48; Status DC Neostigmine Methylsulfate (Prostigmine Inj) 5 mg STK-MED ONCE IV PUSH ; Start at 12:00; Stop 11/11/17 at 11:48; Status DC Glycopyrrolate (Robinul Inj) 1 mg STK-MED ONCE IV PUSH ; Start 11/09/17 at 12:00 ; Stop 11/11/17 at 11:48; Status DC Phenylephrine HCl (Neosynephrine/ NS 1000 Mcg/10ml Syr) 1,000 mcg STK-MED ONCE IV ; Start 11/09/17 at 12:00; Stop 11/11/17 at 11:48; Status DC Phenylephrine HCl (Neosynephrine Inj) 10 mg STK-MED ONCE IV ; Start 11/09/17 at 12:00; Stop 11/11/17 at 11:48; Status DC Dexamethasone Sodium Phosphate (Decadron Inj) 4 mg STK-MED ONCE IV ; Start 11/09 at 12:00; Stop 11/11/17 at 11:48; Status DC Ondansetron HCl (Zofran Inj) 4 mg STK-MED ONCE IV ; Start 11/09/17 at 12:00; Stop 11/11/17 at 11:48; Status DC Propofol (Diprivan 200 Mg/20 ml Inj) 400 mg STK-MED ONCE IV ; Start 11/09/17 at 12:00; Stop 11/11/17 at 11:48; Status DC Vancomycin HCl 1500 mg/Sodium Chloride 515 ml @ 257.5 mls/ hr Q12H IV Last administered on 11/13/17at 06:33; Start 11/11/17 at 18:00; Stop 11/13/17 at 10:17 ; Status DC Miscellaneous Information SPECIFIC LAB TO BE SEDRICK... ONCE ONCE .XX Last administered on 11/13/17at 05:45; Start 11/13/17 at 05:45; Stop 11/13/17 at 05:46 ; Status DC Dextrose 1,000 ml @ 200 mls/hr Q5H IV Last administered on 11/16/17at 04:14; Start 11/12/17 at 16:45 Racepinephrine (Racepinephrine 2.25% Neb) 0.5 ml STK-MED ONCE .ROUTE Last administered on 11/13/17at 08:47; Start 11/13/17 at 08:39; Stop 11/13/17 at 08:40 ; Status DC Vancomycin HCl 1250 mg/Sodium Chloride 262.5 ml @ 250 mls/hr Q12H IV Last administered on 11/14/17at 06:28; Start 11/13/17 at 18:00; Stop 11/14/17 at 08:49 ; Status DC Miscellaneous Information SPECIFIC LAB TO BE ... ONCE ONCE .XX ; Start 11/15 at 05:45; Stop 11/15/17 at 05:46; Status Cancel Hydromorphone HCl (Dilaudid Pf Inj) 1 mg Q3H PRN IV PUSH Pain 6-10 Last administered on 11/16/17at 14:12; Start 11/13/17 at 16:00 Risperidone (risperDAL M-TAB) 3 mg Q12HR PO Last administered on 11/15/17at 20: 53; Start 11/13/17 at 21:00 Valproate Sodium 500 mg/Sodium Chloride 105 ml @ 105 mls/hr Q8HR IV Last administered on 11/16/17at 06:18; Start 11/13/17 at 22:00 Albuterol/ Ipratropium (Duoneb Neb) 1 ampule Q4HR NEB NEB Last administered on 11/16/17at 08:40; Start 11/14/17 at 00:00 Ceftriaxone Sodium 2000 mg/ Sodium Chloride 100 ml @ 200 mls/hr Q24H IV Last administered on 11/16/17at 07:59; Start 11/14/17 at 09:00 Metronidazole (Flagyl) 500 mg Q8HR PO ; Start 11/14/17 at 14:00; Stop 11/14/17 at 15:22; Status DC Fentanyl (Duragesic 50 Mcg Patch.72 Hr) 1 patch ONCE ONCE T-DERMAL Last administered on 11/14/17at 14:10; Start 11/14/17 at 14:00; Stop 11/14/17 at 14:01 ; Status DC Potassium Chloride 100 ml @ 50 mls/hr Q2H PRN IV For Potassium 2.8 - 3.2 mEq/L ; Start 11/14/17 at 14:00 Potassium Chloride 100 ml @ 50 mls/hr Q2H PRN IV For Potassium 2.8 - 3.2 mEq/ L Last administered on 11/15/17at 00:47; Start 11/14/17 at 14:00 Potassium Bicarb/ Potassium Chloride (K-Lyte Cl Eff) 50 meq UNSCH PRN PO For Potassium 3.3 - 3.5 mEq/L; Start 11/14/17 at 14:00 Potassium Chloride 100 ml @ 25 mls/hr UNSCH PRN IV For Potassium 3.3 - 3.5 mEq /L; Start 11/14/17 at 14:00 Potassium Chloride 100 ml @ 50 mls/hr Q2H PRN IV For Potassium 3.3 - 3.5 mEq/ L Last administered on 11/15/17at 23:08; Start 11/14/17 at 14:00 Magnesium Sulfate 4 gm/Sodium Chloride 100 ml @ 50 mls/hr UNSCH PRN IV For Magnesium 0.9 - 1.1 mg/dL; Start 11/14/17 at 14:00 Magnesium Oxide (Mag-Ox) 800 mg UNSCH PRN PO For Magnesium 1.2 - 1.6 mg/dL; Start 11/14/17 at 14:00 Magnesium Sulfate 2 gm/Sodium Chloride 100 ml @ 50 mls/hr UNSCH PRN IV For Magnesium 1.2 - 1.6 mg/dL; Start 11/14/17 at 14:00 Potassium Phosphate (K-Phos) 2,000 mg Q4H PRN PO For Phosphorus < 2.5 mg/dL; Start 11/14/17 at 14:00 Sodium Phosphate 30 mmol/Sodium Chloride 250 ml @ 42 mls/hr UNSCH PRN IV For Phosphorus < 2.5 mg/dL; Start 11/14/17 at 14:00 Potassium Phosphate (K-Phos) 2,000 mg UNSCH PRN PO/TUBE SEE LABEL COMMENTS; Start 11/14/17 at 14:00 Potassium Phosphate 30 mmol/ Sodium Chloride 260 ml @ 42 mls/hr UNSCH PRN IV SEE LABEL COMMENTS; Start 11/14/17 at 14:00 Miscellaneous Information 1 ONCE ONCE T-DERMAL ; Start 11/17/17 at 14:00; Stop 11/17/17 at 14:01 Metronidazole 100 ml @ 100 mls/hr Q8HR IV Last administered on 11/16/17at 14:12 ; Start 11/14/17 at 16:00 Micafungin Sodium 150 mg/Sodium Chloride 100 ml @ 100 mls/hr Q24H IV Last administered on 11/16/17at 14:21; Start 11/15/17 at 09:00 Lorazepam (Ativan Inj) 4 mg ONCE ONCE IV PUSH Last administered on 11/15/17at 10:22; Start 11/15/17 at 10:15; Stop 11/15/17 at 10:16; Status DC Iohexol (Omnipaque 350 Inj) 92 ml STK-MED ONCE IVCONTRAST Last administered on 11/15/17at 13:38; Start 11/15/17 at 13:38; Stop 11/15/17 at 13:39; Status DC Nystatin (Mycostatin Cream) 1 applic Q6HR TOPICAL Last administered on at 06:00; Start 11/15/17 at 18:00 Vancomycin HCl 1250 mg/Sodium Chloride 262.5 ml @ 262.5 mls/ hr ONCE ONCE IV Last administered on 11/15/17at 18:09; Start 11/15/17 at 17:15; Stop 11/15/17 at 18:14; Status DC Pharmacy Profile Note 0 ml @ 0 mls/hr UNSCH OTHER ; Start 11/15/17 at 17:15 Sodium Chloride 500 ml @ 500 mls/hr BOLUS ONCE IV Last administered on at 07:33; Start 11/16/17 at 07:30; Stop 11/16/17 at 08:29; Status DC Furosemide (Lasix Inj) 20 mg UNSCH X1 IV PUSH Last administered on 11/16/17at 08:28; Start 11/16/17 at 07:45; Stop 11/16/17 at 23:59 Potassium Chloride 100 ml @ 50 mls/hr Q2H IV Last administered on 11/16/17at 10 :38; Start 11/16/17 at 07:45; Stop 11/16/17 at 11:44; Status DC Vancomycin HCl 1500 mg/Sodium Chloride 515 ml @ 257.5 mls/ hr Q12H IV Last administered on 11/16/17at 11:38; Start 11/16/17 at 12:00 Miscellaneous Information SPECIFIC LAB TO BE ... ONCE ONCE .XX ; Start at 23:45; Stop 11/17/17 at 23:46 Gentamicin Sulfate (Gentamicin Inj) 240 mg STK-MED ONCE .ROUTE ; Start 11/16/17 at 11:29; Stop 11/16/17 at 11:30; Status DC Vancomycin HCl (Vancomycin Inj) 4,000 mg STK-MED ONCE .ROUTE ; Start 11/16/17 at 11:40; Stop 11/16/17 at 11:41; Status DC Tobramycin Sulfate (Nebcin Inj) 2,400 mg STK-MED ONCE OTHER ; Start 11/16/17 at 11:40; Stop 11/16/17 at 11:41; Status DC Sugammadex Sodium (Bridion Inj) 200 mg STK-MED ONCE IV PUSH ; Start 11/16/17 at 11:47; Stop 11/16/17 at 11:48; Status DC Fentanyl Citrate (fentaNYL INJ) 100 mcg STK-MED ONCE .ROUTE ; Start 11/16/17 at 12:39; Stop 11/16/17 at 12:40; Status DC Midazolam HCl (Versed Inj) 2 mg STK-MED ONCE .ROUTE ; Start 11/16/17 at 12:39; Stop 11/16/17 at 12:40; Status DC Albuterol Sulfate (*ALBUTEROL NEB PERIprocedure ONLY) 2.5 mg STK-MED ONCE NEB Last administered on 11/16/17at 12:41; Start 11/16/17 at 12:41; Stop 11/16/17 at 12:42; Status DC Morphine Sulfate (*morphine INJ PERIprocedure ONLY) 4 mg STK-MED ONCE .ROUTE Last administered on 11/16/17at 13:30; Start 11/16/17 at 13:30; Stop 11/16/17 at 13:31; Status DC (Venkatesh Hanley MD) Medical Decision Making MDM Remarks 41 y/o male with osteomyelitis of the sacrum and iliac bones. No epidural abscess or cord compression. Right hip abscess - wound vac placement by Dr. Campos (Sarika Dawson) Plan Plan Remarks cont nonoperative treatment of sacral osteomyelitis cont IV antibiotics cont mgt of right hip abscess per GS will follow (Sarika Dawson) Attending Statement cont nonoperative treatment of sacral osteomyelitis cont IV antibiotics Will need furher surgery for his f right hip abscess Pulmonary.. Continue aggressive pulmonary toilette, nasotracheal suction, and breathing treatments with nebulizers. Nutrition. NPO Renal. monitor closely urine output, BUN and creatinine Endocrine. Monitor serial Acu checks and SSI as needed in detail ID monitor for signs of infection Protonix for stress ulcer prophylaxis Carlos hose and SCD's for DVT prophylaxis. The exam, history, and the medical decision-making described in the above note were completed with the assistance of the mid-level provider. I reviewed and agree with the findings presented. I attest that I had a [id number] encounter with the patient on the same day, and personally performed and documented my assessment and findings in the medical record. (Venkatesh Hanley MD) Sarika Dawson Nov 11, 2017 09:26 Venkatesh Hanley MD Nov 16, 2017 14:31
[2017-11-11] MEDS ORDERED: SUCCINYLCHOLINE CHLORIDE 100 MG/5 ML SYRINGE IV PUSH ONE (12:00)
[2017-11-11] MEDS ORDERED: LIDOCAINE HCL 1% PF 5 ML SYRINGE OTHER ONE (12:00)
[2017-11-11] MEDS ORDERED: PROPOFOL 200 MG/20 ML AMP IV ONE (12:00)
[2017-11-11] MEDS ORDERED: ePHEDrine/NS 25 MG/5 ML SYRINGE IV ONE (12:00)
[2017-11-11] MEDS ORDERED: PHENYLEPH/NS 1000 MCG/10 ML SYR IV ONE (12:00)
[2017-11-11] MEDS ORDERED: ONDANSETRON HCL 4 MG/2 ML VIAL IV ONE (12:00)
[2017-11-11] MEDS ORDERED: ROCURONIUM INJ 50 MG/5 ML SYRINGE IV PUSH ONE (12:00)
--- NOTE | 2017-11-11 14:45 | HHI.IDPN ---
Subjective Subjective Remarks is a 41 y/o CM with PMHx of Schizoaffective disorder on Haldol IM injections in bilateral buttocks. Patient reports getting these as outpatient by unknown doctor (different doctor each time per patient). Approx 1 month back after he received his last Haldol IM shot in right buttock patient noticed pain and swelling and decreased range of motion. Patient continued to receive Haldol shots in left buttock due to pain in right buttock. Patient reports his ability to move around has declined since last 1 week and he needs help with ADL phuong dressing himself due to significant pain on right lower extremity. Patient reports fevers chills and night sweats for the last 1 week prior to admission and significant worsening pain and swelling of his right lower extremity. Patient's past medical history is also significant for right dorsum of the foot marsh as a child as well as neuropathy. Per review of records it appears the patient's mother has reported that he hasn't been feeling well since July and has presented to another emergency department related to back and hip pain. The patient was diagnosed with fecal impaction and severe constipation was seen by medical sales representative. Patient reports that he was on a bowel regimen to help with her constipation and that has been a challenge to maintain continence. Patient has had incontinence of stool and intermittently incontinence of urine since July. With this background patient presents to the emergency department for evaluation of difficulty walking, generalized weakness, weight loss loss of appetite. Reportedly while in the triage area his blood pressure was in the 70s systolic. Patient also reported abdominal pain in the lower quadrants radiating to his bilateral lower extremity but more so on the right. Patient reported nausea decrease in appetite and loss of about 20 pound weight in the last 1 month. Patient denies any recent intravenous drug abuse. Patient does endorse to receiving intramuscular Haldol in bilateral buttocks. The last right buttock Haldol injection was approximately 1 month back. Patient reports having weakness of bilateral lower extremities more so on the right especially because of sharp shooting pains down his right leg. In the emergency department patient received a total of 4 L of IV fluids as a part of severe sepsis workup and management. Cultures drawn at admission are currently pending. A CT scan of the abdomen showed appearance of soft tissue mass of the proximal thigh and gluteal region with fluid and gas tracking down the rectus muscle into the anterior thigh muscle. This is concerning for infectious or necrotic process. At the time of my evaluation patient is in the intensive surgical care unit. He has received 4 L of IV fluids normal saline. He has good urine output. Currently awake alert oriented 3, on room air. Infectious disease consulted for evaluation and management of severe sepsis, right buttock abscess possible osteomyelitis. Overnight events reviewed. Remains intubated For a repeat washout today. Discussed with Dr. Campos Tmax 101.5 F No rash No diarrhea Not on pressors. Antibiotics Zosyn IV Vancomycin IV Lines Line sites with no evidence of infection. Past Medical History Neuropathy involving the right leg h/o marsh right foot dorsum as a child. Schizoaffective disorder, Depressions Anxiety Past Surgical History None per patient. Allergies: Coded Allergies: diphenhydramine (Verified Adverse Reaction, Unknown, 11/08/17) Objective . Vital Signs Date Time Temp Pulse Resp B/P (MAP) Pulse Ox O2 Delivery O2 Flow Rate FiO2 11/11/17 12:00 79 11/11/17 12:00 35 11/11/17 12:00 99.2 79 16 108/53 (71) 97 11/11/17 11:38 95 35 11/11/17 10:00 85 11/11/17 08:00 77 11/11/17 08:00 99.5 77 16 108/56 (73) 99 11/11/17 08:00 35 11/11/17 08:00 77 11/11/17 07:44 99 35 11/11/17 07:00 99 Mechanical Ventilator 35 11/11/17 07:00 78 11/11/17 06:00 87 11/11/17 04:00 35 11/11/17 04:00 81 11/11/17 04:00 101.5 78 16 97/60 (72) 96 11/11/17 03:26 97 35 11/11/17 02:00 81 11/11/17 00:00 100.7 78 16 103/52 (69) 98 11/11/17 00:00 80 11/11/17 00:00 35 11/10/17 23:49 98 35 11/10/17 23:00 77 11/10/17 22:35 97 35 11/10/17 22:00 79 11/10/17 21:04 98 35 11/10/17 20:00 78 11/10/17 20:00 35 11/10/17 20:00 100.6 78 16 97/52 (67) 98 11/10/17 19:00 98 Mechanical Ventilator 35 11/10/17 18:00 82 11/10/17 16:00 92 11/10/17 16:00 100.7 92 23 102/57 (72) 100 11/10/17 16:00 45 11/10/17 15:29 99 35 11/10/17 15:00 87 11/11/17 11/11/17 11/12/17 15:00 23:00 07:00 Intake Total 80 ml Output Total 100 ml Balance -20 ml Other 80 ml Drainage Total 100 ml . Laboratory Tests Test 11/10/17 03:58 White Blood Count 13.9 TH/MM3 Red Blood Count 2.78 MIL/MM3 Hemoglobin 7.5 GM/DL Hematocrit 22.8 % Mean Corpuscular Volume 81.9 FL Mean Corpuscular Hemoglobin 27.0 PG Mean Corpuscular Hemoglobin Concent 33.0 % Red Cell Distribution Width 18.1 % Platelet Count 227 TH/MM3 Mean Platelet Volume 7.9 FL Neutrophils (%) (Auto) 88.9 % Lymphocytes (%) (Auto) 2.6 % Monocytes (%) (Auto) 7.7 % Eosinophils (%) (Auto) 0.0 % Basophils (%) (Auto) 0.8 % Neutrophils # (Auto) 12.4 TH/MM3 Lymphocytes # (Auto) 0.4 TH/MM3 Monocytes # (Auto) 1.1 TH/MM3 Eosinophils # (Auto) 0.0 TH/MM3 Basophils # (Auto) 0.1 TH/MM3 CBC Comment AUTO DIFF Differential Total Cells Counted 100 Neutrophils % (Manual) 20 % Band Neutrophils % 76 % Lymphocytes % 1 % Monocytes % 1 % Neutrophils # (Manual) 13.6 TH/MM3 Metamyelocytes 1 % Myelocytes 1 % Differential Comment FINAL DIFF MANUAL Toxic Granulation 2+ Platelet Estimate NORMAL Platelet Morphology Comment ENLARGED Target Cells 1+ Laboratory Tests Test 11/09/17 21:28 11/10/17 03:58 C-Reactive Protein 31.80 MG/DL Blood Urea Nitrogen 26 MG/DL Creatinine 0.83 MG/DL Random Glucose 99 MG/DL Calcium Level 7.6 MG/DL Sodium Level 140 MEQ/L Potassium Level 4.4 MEQ/L Chloride Level 107 MEQ/L Carbon Dioxide Level 24.8 MEQ/L Anion Gap 8 MEQ/L Estimat Glomerular Filtration Rate 103 ML/MIN Microbiology Date/Time Source Procedure Growth Status 11/10/17 17:00 Blood Peripheral Aerobic Blood Culture - Preliminary NO GROWTH IN 1 DAY Resulted 11/10/17 17:00 Blood Peripheral Anaerobic Blood Culture - Preliminary NO GROWTH IN 1 DAY Resulted 11/10/17 16:55 Blood Peripheral Aerobic Blood Culture - Preliminary NO GROWTH IN 1 DAY Resulted 11/10/17 16:55 Blood Peripheral Anaerobic Blood Culture - Preliminary NO GROWTH IN 1 DAY Resulted 11/08/17 21:35 Blood Peripheral Aerobic Blood Culture - Preliminary NO GROWTH IN 3 DAYS Resulted 11/08/17 21:35 Anaerobic Blood Culture - Preliminary Viridans Streptococcus Grp Resulted 11/08/17 21:30 Blood Peripheral Aerobic Blood Culture - Final Staphylococcus Epidermidis Complete 11/08/17 21:30 Anaerobic Blood Culture - Final Viridans Streptococcus Grp Complete 11/08/17 21:45 Urine Catheterized Urine Urine Culture - Final NO GROWTH IN 48 HOURS. Complete 11/09/17 15:20 Wound Hip Fungal Smear - Final NO FUNGAL ELEMENTS SEEN. Resulted 11/09/17 15:20 Wound Hip Fungal Culture Pending Resulted 11/09/17 15:20 Wound Hip Acid Fast Stain - Final NO ACID FAST BACILLI SEEN Resulted 11/09/17 15:20 Wound Hip Mycobacterial Culture Pending Resulted 11/09/17 15:20 Wound Hip Gram Stain - Final Resulted 11/09/17 15:20 Wound Culture - Preliminary Escherichia Coli Streptococcus Species Resulted Imaging Last Impressions Chest X-Ray 11/09/17 0000 Signed Impressions: Service Date/Time: Thursday, November 09, 2017 16:23 - CONCLUSION: Minimal infiltrate left base new from comparison study. Rodrick Ch MD FACR Lower Extremity Ultrasound 11/08/172011 Signed Impressions: Service Date/Time: Wednesday, November 08, 2017 20:41 - CONCLUSION: 1. Negative for deep venous thrombosis. There are mildly enlarged right inguinal lymph nodes. Bertrand Smalls MD Abdomen/Pelvis CT 11/08/172011 Signed Impressions: Service Date/Time: Wednesday, November 08, 2017 22:54 - CONCLUSION: 1. Abnormal appearance of the soft tissues of the proximal thigh and gluteal region with fluid and gas tracking between the rectus muscles and the anterior thigh muscles. No focal abnormal areas of enhancement. The combination of fluid and gas suggests either an infectious or necrotic process. 2. Nonobstructing small calcified stone mid pole left kidney and multiple left renal cysts. 3. Small bilateral pleural effusions. Jace Bird MD Thoracic Spine MRI 11/08/17 0000 Signed Impressions: Service Date/Time: Wednesday, November 08, 2017 22:01 - CONCLUSION: 1. Small bilateral pleural effusions. 2. No signal abnormalities in the thoracic vertebral bodies and no evidence of focal disc disease. Jace Bird MD Lumbar Spine MRI 11/08/17 0000 Signed Impressions: Service Date/Time: Wednesday, November 08, 2017 22:01 - CONCLUSION: 1. No evidence of lumbar disc disease. 2. Soft tissue abnormality about the right gluteal region suggesting abscess with T2 prolongation and contrast enhancement ; this is incompletely included in the [id number] of the exam. 3. There is also abnormal signal within the marrow of the sacral and coccygeal marrow including contrast enhancement suggesting that the right thigh and gluteal abnormality may extend intraosseous, possibly osteomyelitis. Jace Bird MD Physical Exam GENERAL: Thin built, poorly nourished patient, in no apparent distress. SKIN: No rashes, ecchymoses or lesions. Cool and dry. HEAD: Atraumatic. Normocephalic. No temporal or scalp tenderness. EYES: Pupils equal round and reactive. Extraocular motions intact. No scleral icterus. No injection or drainage. ENT: Intubated. NECK: Trachea midline. Supple, nontender, no meningeal signs. CARDIOVASCULAR: HS audible. RESPIRATORY: Wheezing bilaterally. Basilar crackles. GASTROINTESTINAL: Abdomen soft, non-tender, nondistended. MUSCULOSKELETAL: The entire right lower extremity is significantly swollen compared to the left lower extremity. Decreased range of motion at the hip and knee as well as ankle joint due to significant pain. There is pitting edema noted at the thigh level. There is some skin lesions which appear like dry scab lesions on the thigh as well as in other parts of the body. There is some erythema induration and swelling as well as tenderness noted in the right thigh. Patient unable to turn due to pain. Wound VAC is in place. Pitting edema noted. NEUROLOGICAL: Sedated. Psych cooperative IV line sites with no e.o infection. Assessment & Plan Remarks Severe sepsis present on admission. Amrikh cathy neg bacteremia E.coli and Strep right thigh abscess/osteomyelitis Right thigh abscess possible myositis, osteomyelitis. Schizoaffective disorder receives IM Haldol injections in the buttocks. Lower extremity neuropathy. Weight loss, loss of appetite:? Due to chronic infection versus rule out HIV. Recommendations: Continue Zosyn IV Continue Vanco IV (target 15-20 for osteomyelitis) Follow cultures to adjust antibiotic regimen. Follow clinically. d/w [facility] MD Bradshaw covering for me this weekend. María Upton MD Nov 11, 2017 14:45
[2017-11-11] MEDS: fentaNYL DRIP 250 ML IV PRN (15:09)
--- NOTE | 2017-11-11 15:26 | HHI.CCPN ---
Subjective Remarks/Hospital Course 41 year old male presents for evaluation of difficulty walking, generalized weakness that began earlier today. The patient arrives out in triage with a blood pressure systolic in the 70s. According to the patient's mother he has not been well since July. She reports that he was seen at another emergency department related to back and hip pain at that time. The patient at that time was also diagnosed with a fecal impaction and severe constipation. He has been since then seen by a platform software engineer. He was placed on a bowel regimen to help with the constipation, however his mother reports that he's been having difficulty maintaining it. The patient since July has been incontinent of stool and intermittently incontinent of urine. The stool is brown in color. The patient has a diagnosis of schizoaffective disorder and is a poor historian. His mother reports that he has a history of being diagnosed with a nerve problem involving the right leg and since Tuesday he has had swelling of the right leg. He reports having abdominal pain down in bilateral lower quadrants of the abdomen. He reports having nausea. They deny him having any known recent fevers, worsening cough or congestion, neck pain, chest pain, shortness of breath, weakness of his upper extremities, numbness or tingling of his upper extremities. The patient does however report having weakness of bilateral lower extremities with pain/sharp pains that shoot down into the right leg. The CT scan obtained in the emergency department shows abnormal appearance of the soft tissue of the proximal thigh and the gluteal region with fluid and gas tracking between the rectus muscle in the anterior thigh muscle. The combination of fluid and gas suggest either an infectious or necrotic process. 11/09: Ongoing resuscitation from sepsis due to right thigh abscess, extends to gluteal region, possible bone involvement? Urine acceptable. 11/10: S/P debridement right thigh abscess and wound vac. Septic behavior. Continue ventilator support, back to OR tomorrow. 11/11: No events over the night. Patient remains intubated and sedated. No pressors. Tmax 101.5, I/O 1950/2100. No family at bedside. ROS unobtainable, patient is intubated Objective Vital Signs Date Time Temp Pulse Resp B/P (MAP) Pulse Ox O2 Delivery O2 Flow Rate FiO2 11/11/17 14:00 74 11/11/17 12:00 35 11/11/17 12:00 99.2 16 108/53 (71) 97 11/11/17 07:00 Mechanical Ventilator Intake and Output 11/11/17 11/11/17 11/12/17 08:00 16:00 00:00 Intake Total 1100 ml 80 ml Output Total 1100 ml 100 ml Balance 0 ml -20 ml Result Diagram: 11/10/17 0358 11/10/17 0358 Other Results Microbiology Date/Time Source Procedure Growth Status 11/08/17 21:30 Blood Peripheral Aerobic Blood Culture - Final Staphylococcus Epidermidis Complete 11/08/17 21:30 Anaerobic Blood Culture - Final Viridans Streptococcus Grp Complete 11/08/17 21:45 Urine Catheterized Urine Urine Culture - Final NO GROWTH IN 48 HOURS. Complete Imaging Last 24 hours Impressions Lower Extremity Ultrasound 11/08/172011 Signed Impressions: Service Date/Time: Wednesday, November 08, 2017 20:41 - CONCLUSION: 1. Negative for deep venous thrombosis. There are mildly enlarged right inguinal lymph nodes. Bertrand Smalls MD Chest X-Ray 11/08/172011 Signed Impressions: Service Date/Time: Wednesday, November 08, 2017 21:10 - CONCLUSION: 1. Subsegmental airspace disease right lung base. Finding may represent a small bronchopneumonia. Bertrand Smalls MD Abdomen/Pelvis CT 11/08/172011 Signed Impressions: Service Date/Time: Wednesday, November 08, 2017 22:54 - CONCLUSION: 1. Abnormal appearance of the soft tissues of the proximal thigh and gluteal region with fluid and gas tracking between the rectus muscles and the anterior thigh muscles. No focal abnormal areas of enhancement. The combination of fluid and gas suggests either an infectious or necrotic process. 2. Nonobstructing small calcified stone mid pole left kidney and multiple left renal cysts. 3. Small bilateral pleural effusions. Jace Bird MD Objective Remarks General - middle age gentleman, intubated and sedated, ill appearing HEENT - pupils equal, reactive, sclerae anicteric, neck supple, no nuchal rigidity, neck veins not distended, no carotid bruit, + ETT, + OGT CV - regular S1, S2, no murmurs Chest - clear b/l, good air entry, no wheezes Abdomen soft, non-tender, non-distended, BS present, no hepatomegaly, no splenomegaly Skin - no rashes, no cyanosis Extremities - warm and well perfused, 2+ pitting edema of the right lower extremity, 1+ edema of the left lower extremity. Diffuse swelling over the right upper thigh, wound vac over the right hip Neuro - intubated and sedated, pupils equal and reactive, opens eyes to voice stimuli but does not follow commands A/P Assessment and Plan 1. Severe sepsis secondary to mixed clara thigh abscess/OM s/p I&D with wound vac placement 2. CoNS bacteremia 3. Sacral OM 4. Hyponatremia 5. Schizoaffective disorder 6. Acute respiratory failure 1. Continue PRVC at current vent settings. Pip 20, synchronized with the vent, no auto PEEP 2. Vent bundle and bronchodilators 3. Antibiotics per ID 4. On sedation with propofol and pain management with fentanyl 5. Plan for OR again today noted 6. On Depakote and Risperidone 7. DVT prophylaxis with SCD 8. GI prophylaxis 9. Check labs including CPK 10. Continue iv hydration Alfred Bates MD Nov 11, 2017 15:26
[2017-11-11 17:14] LABS: MEAN CELL VOLUME 82.2 FL (80.0-100.0); MEAN CORPUSCULAR HEMOGLOBIN 26.4 PG (27.0-34.0); MEAN CORPUSCULAR HGB CONC 32.1 % (32.0-36.0); MEAN PLATELET VOLUME 7.9 FL (7.0-11.0); PLATELET COUNT 186 TH/MM3 (150-450); RED BLOOD COUNT 2.38 MIL/MM3 (4.50-5.90); WHITE BLOOD COUNT 13.5 TH/MM3 (4.0-11.0)
[2017-11-11 17:22] LABS: HEMATOCRIT 19.6 % (39.0-51.0); HEMOGLOBIN 6.3 GM/DL (13.0-17.0)
[2017-11-11 18:23] LABS: BANDS 19 % (0-6); LYMPHOCYTES 4 % (9-44); METAMYELOCYTES 2 % (0-1); MONOCYTES 1 % (0-8); MYELOCYTES 1 % (0-0); NEUTROPHIL # MANUAL DIFF 12.8 TH/MM3 (1.8-7.7); POLYS (SEG NEUTROPHILS) 73 % (16-70)
[2017-11-11] MEDS: VANCOMYCIN 1,500 MG/NS 500 ML IV SCH ×2 (18:25)
[2017-11-11 18:26] LABS: STOMATOCYTES 1+ (NORMAL); TEARDROP RBCS 2+ (NORMAL)
[2017-11-11 18:27] LABS: TOXIC GRANULATION 1+ (NORMAL)
[2017-11-11 18:34] LABS: ALKALINE PHOSPHATASE 50 U/L (45-117); ALT (GPT) 19 U/L (12-78); AST (GOT) 37 U/L (15-37); BICARBONATE 27.6 MEQ/L (21.0-32.0); BLOOD UREA NITROGEN 28 MG/DL (7-18); CALCIUM 7.9 MG/DL (8.5-10.1); CHLORIDE 117 MEQ/L (98-107); CREATININE 0.79 MG/DL (0.60-1.30); GLOMERULAR FILTRATION RATE 109 ML/MIN (>89); GLUCOSE,RANDOM 80 MG/DL (74-106); SODIUM (NA) 150 MEQ/L (136-145); TOTAL BILIRUBIN ADULT 0.3 MG/DL (0.2-1.0); TOTAL PROTEIN 5.1 GM/DL (6.4-8.2)
--- NOTE | 2017-11-11 19:17 | HHI.PR ---
cc: Bertrand Campos MD Immediate Post Op Note Procedure Date: Nov 11, 2017 Pre Op Diagnosis: (1) Abscess of gluteal region (2) Neurogenic urinary incontinence (3) Abscess of right hip Post Op Diagnosis: (1) Abscess of right hip (2) Neurogenic urinary incontinence (3) Abscess of gluteal region Surgeon: Bertrand Campos Metal Grinder(s): C OR record Procedure: Irrigation and debridement of right hip -abscess Application of VAC device Anesthesia: General Drains: Other (VAC dressing) Patient to: ISC Patient Condition: Good Implant/Devices: SEE IMPLANT LOG (if applicable) Bertrand Campos MD Nov 11, 2017 19:17
[2017-11-11] MEDS: RESP: ALBUTEROL 2.5 MG/IPRATROPIUM 0.5 MG NEB (PRN) INH (20:15)
[2017-11-11 23:50] LABS: HEMATOCRIT 23.2 % (39.0-51.0); HEMOGLOBIN 7.6 GM/DL (13.0-17.0)
[2017-11-12] VITALS (18 sets, daily range): BP systolic 103–121; BP diastolic 54–68; PULSE 68–82; RESP 16; TEMP 99.1–100.3; O2SAT 98–100
[2017-11-12] MEDS: SODIUM CHLOR 0.9% 1000 ML INJ 1,000 ML IV SCH ×2 (01:00→09:00)
[2017-11-12] MEDS: PIPERACIL-TAZO 4.5 GM PREMIX 100 ML IV SCH ×4 (02:28→20:24)
[2017-11-12] MEDS: PROPOFOL 1000 MG/100 ML IV PRN ×3 (03:01→23:45)
[2017-11-12] MEDS: CHLORHEXIDINE GLUCONATE 2 % 1 PACK (2 CLOTHS) TOP SCH (03:51)
[2017-11-12 05:24] LABS: HEMATOCRIT 22.9 % (39.0-51.0); HEMOGLOBIN 7.5 GM/DL (13.0-17.0); MEAN CELL VOLUME 81.9 FL (80.0-100.0); MEAN CORPUSCULAR HEMOGLOBIN 26.7 PG (27.0-34.0); MEAN CORPUSCULAR HGB CONC 32.6 % (32.0-36.0); MEAN PLATELET VOLUME 8.1 FL (7.0-11.0); PLATELET COUNT 179 TH/MM3 (150-450); RED BLOOD COUNT 2.79 MIL/MM3 (4.50-5.90); RED CELL DISTRIBUTION WIDTH 18.8 % (11.6-17.2); WHITE BLOOD COUNT 14.1 TH/MM3 (4.0-11.0)
[2017-11-12 05:38] LABS: AST (GOT) 38 U/L (15-37); BICARBONATE 24.7 MEQ/L (21.0-32.0); BLOOD UREA NITROGEN 25 MG/DL (7-18); CALCIUM 8.3 MG/DL (8.5-10.1); CHLORIDE 118 MEQ/L (98-107); CREATININE 0.77 MG/DL (0.60-1.30); GLOMERULAR FILTRATION RATE 112 ML/MIN (>89); GLUCOSE,RANDOM 83 MG/DL (74-106); SODIUM (NA) 150 MEQ/L (136-145)
[2017-11-12 05:42] LABS: ALKALINE PHOSPHATASE 53 U/L (45-117); ALT (GPT) 16 U/L (12-78); TOTAL BILIRUBIN ADULT 0.4 MG/DL (0.2-1.0); TOTAL PROTEIN 5.1 GM/DL (6.4-8.2)
[2017-11-12] MEDS: VANCOMYCIN 1,500 MG/NS 500 ML IV SCH ×4 (05:42→17:24)
[2017-11-12 06:19] LABS: BANDS 23 % (0-6); LYMPHOCYTES 5 % (9-44); MONOCYTES 6 % (0-8); MYELOCYTES 4 % (0-0); NEUTROPHIL # MANUAL DIFF 12.5 TH/MM3 (1.8-7.7); POLYS (SEG NEUTROPHILS) 61 % (16-70); PROMYELOCYTES 1 % (0-0)
[2017-11-12 06:20] LABS: OVALOCYTES 1+ (NORMAL); TARGET CELLS 2+ (NORMAL)
[2017-11-12] MEDS: CHLORHEXIDINE 0.12% (ORAL KIT) 15 ML CUP MT SCH ×2 (08:00→19:43)
--- NOTE | 2017-11-12 08:53 | RADRPT ---
EXAM DATE/TIME: 11/12/2017 08:17 [facility] COMPARISON: CHEST SINGLE AP, November 09, 2017, 16:23. INDICATIONS : infiltrate. MEDICAL HISTORY : Schizophrenia. Bipolar disorder. SURGICAL HISTORY : None. ENCOUNTER: Subsequent ACUITY: 1 week PAIN SCORE: Non-responsive. LOCATION: Bilateral chest FINDINGS: Stable appearance of an intubation tube with the tip at the level of the clavicles. Gastric tubing ov erlying the midline with the proximal port below the level of the diaphragm. There is increased densi ty within the inferior left hemithorax with obscuration of the left hemidiaphragm and overall volume loss within the left hemithorax. Findings are consistent with left lower lobe collapse and possible pleural effusion.. CONCLUSION: Left lower lobe atelectasis and possible pleural effusion. Marleny Marin MD on November 12, 2017 at 8:48 Board Certified Radiologist. This report was verified electronically.
[2017-11-12] MEDS: SODIUM CHLORIDE 0.9% FLUSH 10 ML FLUSH IV FLUSH SCH ×2 (09:00→20:24)
[2017-11-12] MEDS: FAMOTIDINE 20 MG/2 ML VIAL IV PUSH SCH ×2 (10:07→20:24)
[2017-11-12] MEDS: hydrOXYzine HCL 50 MG TAB PO SCH ×2 (10:07→20:25)
[2017-11-12] MEDS: VALPROIC ACID SYRUP 250 MG/5 ML UDC OG-TUBE SCH ×2 (10:07→20:24)
[2017-11-12] MEDS: risperiDONE 3 MG TAB PO SCH (10:08)
--- NOTE | 2017-11-12 14:22 | HHI.IDPN ---
Note Infectious Disease Note ID Coverage: is a 41 y/o CM with PMHx of Schizoaffective disorder on Haldol IM injections in bilateral buttocks. Patient reports getting these as outpatient by unknown doctor (different doctor each time per patient). Approx 1 month back after he received his last Haldol IM shot in right buttock patient noticed pain and swelling and decreased range of motion. Patient continued to receive Haldol shots in left buttock due to pain in right buttock. Patient reports his ability to move around has declined since last 1 week and he needs help with ADL phuong dressing himself due to significant pain on right lower extremity. Patient reports fevers chills and night sweats for the last 1 week prior to admission and significant worsening pain and swelling of his right lower extremity. Patient's past medical history is also significant for right dorsum of the foot marsh as a child as well as neuropathy. Per review of records it appears the patient's mother has reported that he hasn't been feeling well since July and has presented to another emergency department related to back and hip pain. The patient was diagnosed with fecal impaction and severe constipation was seen by home coordinator. Patient reports that he was on a bowel regimen to help with her constipation and that has been a challenge to maintain continence. Patient has had incontinence of stool and intermittently incontinence of urine since July. Remains intubated. Sedation decreased and he is awake and responsive. Has vac at right posterior thigh/hip. HAs low grade fever. WBC elevated. No rash No diarrhea Not on pressors. Antibiotics Zosyn IV Vancomycin IV Lines Line sites with no evidence of infection. Past Medical History Neuropathy involving the right leg h/o marsh right foot dorsum as a child. Schizoaffective disorder, Depressions Anxiety Past Surgical History None per patient. Allergies: Coded Allergies: diphenhydramine (Verified Adverse Reaction, Unknown, 11/08/17) OBJECTIVE: Vital Signs Date Time Temp Pulse Resp B/P (MAP) Pulse Ox O2 Delivery O2 Flow Rate FiO2 11/12/17 12:00 73 11/12/17 12:00 40 11/12/17 12:00 100.1 73 16 111/56 (74) 99 11/12/17 11:44 100 40 11/12/17 10:00 78 11/12/17 08:00 40 11/12/17 08:00 100.3 70 16 115/64 (81) 99 11/12/17 08:00 70 11/12/17 07:38 98 40 11/12/17 07:00 99 Mechanical Ventilator 40 11/12/17 06:00 68 11/12/17 04:08 99 40 11/12/17 04:00 68 11/12/17 04:00 99.4 68 16 109/55 (73) 98 11/12/17 04:00 40 11/12/17 02:00 68 11/12/17 00:00 40 11/12/17 00:00 68 11/12/17 00:00 99.4 68 16 103/54 (70) 99 11/11/17 23:57 99 40 11/11/17 22:00 76 11/11/17 20:36 99.1 78 16 109/58 91 11/11/17 20:02 100 35 11/11/17 20:00 99.1 84 16 106/54 (71) 91 11/11/17 20:00 35 11/11/17 20:00 84 11/11/17 19:56 99.1 85 16 107/56 93 11/11/17 19:00 92 Mechanical Ventilator 35 11/11/17 18:40 99.8 78 16 111/57 100 11/11/17 18:33 99.4 76 16 109/55 98 11/11/17 18:00 84 11/11/17 16:00 35 11/11/17 16:00 99.8 72 16 104/53 (70) 98 11/11/17 16:00 72 11/11/17 15:43 96 35 Laboratory Tests Test 11/11/17 15:05 11/11/17 16:20 11/11/17 17:28 11/11/17 23:27 Random Vancomycin Level 16.5 COMMENT White Blood Count 13.5 TH/MM3 Red Blood Count 2.38 MIL/MM3 Hemoglobin 6.3 GM/DL 7.6 GM/DL Hematocrit 19.6 % 23.2 % Mean Corpuscular Volume 82.2 FL Mean Corpuscular Hemoglobin 26.4 PG Mean Corpuscular Hemoglobin Concent 32.1 % Red Cell Distribution Width 18.0 % Platelet Count 186 TH/MM3 Mean Platelet Volume 7.9 FL CBC Comment AUTO DIFF Differential Total Cells Counted 100 Neutrophils % (Manual) 73 % Band Neutrophils % 19 % Lymphocytes % 4 % Monocytes % 1 % Neutrophils # (Manual) 12.8 TH/MM3 Metamyelocytes 2 % Myelocytes 1 % Differential Comment FINAL DIFF MANUAL Toxic Granulation 1+ Platelet Estimate NORMAL Platelet Morphology Comment ENLARGED Tear Drop Cells 2+ Stomatocytes 1+ Blood Urea Nitrogen 28 MG/DL Creatinine 0.79 MG/DL Random Glucose 80 MG/DL Total Protein 5.1 GM/DL Albumin 1.0 GM/DL Calcium Level 7.9 MG/DL Alkaline Phosphatase 50 U/L Aspartate Amino Transf (AST/SGOT) 37 U/L Alanine Aminotransferase (ALT/SGPT) 19 U/L Total Bilirubin 0.3 MG/DL Sodium Level 150 MEQ/L Potassium Level 3.6 MEQ/L Chloride Level 117 MEQ/L Carbon Dioxide Level 27.6 MEQ/L Anion Gap 5 MEQ/L Estimat Glomerular Filtration Rate 109 ML/MIN Total Creatine Kinase 63 U/L Test 11/12/17 03:32 11/12/17 09:30 White Blood Count 14.1 TH/MM3 Red Blood Count 2.79 MIL/MM3 Hemoglobin 7.5 GM/DL Hematocrit 22.9 % Mean Corpuscular Volume 81.9 FL Mean Corpuscular Hemoglobin 26.7 PG Mean Corpuscular Hemoglobin Concent 32.6 % Red Cell Distribution Width 18.8 % Platelet Count 179 TH/MM3 Mean Platelet Volume 8.1 FL CBC Comment AUTO DIFF Differential Total Cells Counted 100 Neutrophils % (Manual) 61 % Band Neutrophils % 23 % Lymphocytes % 5 % Monocytes % 6 % Neutrophils # (Manual) 12.5 TH/MM3 Myelocytes 4 % Promyelocytes 1 % Differential Comment FINAL DIFF MANUAL Platelet Estimate NORMAL Platelet Morphology Comment NORMAL Target Cells 2+ Ovalocytes 1+ Blood Urea Nitrogen 25 MG/DL Creatinine 0.77 MG/DL Random Glucose 83 MG/DL Total Protein 5.1 GM/DL Albumin 1.0 GM/DL Calcium Level 8.3 MG/DL Alkaline Phosphatase 53 U/L Aspartate Amino Transf (AST/SGOT) 38 U/L Alanine Aminotransferase (ALT/SGPT) 16 U/L Total Bilirubin 0.4 MG/DL Sodium Level 150 MEQ/L Potassium Level 3.8 MEQ/L Chloride Level 118 MEQ/L Carbon Dioxide Level 24.7 MEQ/L Anion Gap 7 MEQ/L Estimat Glomerular Filtration Rate 112 ML/MIN Total Creatine Kinase 61 U/L Blood Gas Puncture Site LT RADIAL Blood Gas Patient Temperature 98.6 Blood Gas HCO3 25 mmol/L Blood Gas Base Excess -0.6 mmol/L Blood Gas Oxygen Saturation 96 % Arterial Blood pH 7.32 Arterial Blood Partial Pressure CO2 49 mmHg Arterial Blood Partial Pressure O2 122 mmHg Arterial Blood Oxygen Content 12.6 Vol % Arterial Blood Carboxyhemoglobin 1.4 % Arterial Blood Methemoglobin 0.8 % Blood Gas Hemoglobin 9.1 G/DL Oxygen Delivery Device VENTILATOR Blood Gas Ventilator Setting 16/600/PEEP5/1.0 Blood Gas Inspired Oxygen 40 % Microbiology Date/Time Source Procedure Growth Status 11/10/17 17:00 Blood Peripheral Aerobic Blood Culture - Preliminary NO GROWTH IN 1 DAY Resulted 11/10/17 17:00 Blood Peripheral Anaerobic Blood Culture - Preliminary NO GROWTH IN 1 DAY Resulted 11/10/17 16:55 Blood Peripheral Aerobic Blood Culture - Preliminary NO GROWTH IN 1 DAY Resulted 11/10/17 16:55 Blood Peripheral Anaerobic Blood Culture - Preliminary NO GROWTH IN 1 DAY Resulted 11/08/17 21:35 Blood Peripheral Aerobic Blood Culture - Preliminary NO GROWTH IN 3 DAYS Resulted 11/08/17 21:35 Anaerobic Blood Culture - Preliminary Viridans Streptococcus Grp Resulted 11/08/17 21:30 Blood Peripheral Aerobic Blood Culture - Final Staphylococcus Epidermidis Complete 11/08/17 21:30 Anaerobic Blood Culture - Final Viridans Streptococcus Grp Complete 11/08/17 21:45 Urine Catheterized Urine Urine Culture - Final NO GROWTH IN 48 HOURS. Complete 11/09/17 15:20 Wound Hip Fungal Smear - Final NO FUNGAL ELEMENTS SEEN. Resulted 11/09/17 15:20 Wound Hip Fungal Culture Pending Resulted 11/09/17 15:20 Wound Hip Acid Fast Stain - Final NO ACID FAST BACILLI SEEN Resulted 11/09/17 15:20 Wound Hip Mycobacterial Culture Pending Resulted 11/09/17 15:20 Wound Hip Gram Stain - Final Resulted 11/09/17 15:20 Wound Culture - Preliminary Escherichia Coli Streptococcus Species Resulted Imaging Chest X-Ray 11/12/17 0000 Signed Impressions: Service Date/Time: Sunday, November 12, 2017 08:17 - CONCLUSION: Left lower lobe atelectasis and possible pleural effusion. Marleny Marin MD Chest X-Ray 11/09/17 0000 Signed Impressions: Service Date/Time: Thursday, November 09, 2017 16:23 - CONCLUSION: Minimal infiltrate left base new from comparison study. Rodrick Ch MD FACR Lower Extremity Ultrasound 11/08/172011 Signed Impressions: Service Date/Time: Wednesday, November 08, 2017 20:41 - CONCLUSION: 1. Negative for deep venous thrombosis. There are mildly enlarged right inguinal lymph nodes. Bertrand Smalls MD Abdomen/Pelvis CT 11/08/172011 Signed Impressions: Service Date/Time: Wednesday, November 08, 2017 22:54 - CONCLUSION: 1. Abnormal appearance of the soft tissues of the proximal thigh and gluteal region with fluid and gas tracking between the rectus muscles and the anterior thigh muscles. No focal abnormal areas of enhancement. The combination of fluid and gas suggests either an infectious or necrotic process. 2. Nonobstructing small calcified stone mid pole left kidney and multiple left renal cysts. 3. Small bilateral pleural effusions. Jace Bird MD Thoracic Spine MRI 11/08/17 0000 Signed Impressions: Service Date/Time: Wednesday, November 08, 2017 22:01 - CONCLUSION: 1. Small bilateral pleural effusions. 2. No signal abnormalities in the thoracic vertebral bodies and no evidence of focal disc disease. Jace Bird MD Lumbar Spine MRI 11/08/17 0000 Signed Impressions: Service Date/Time: Wednesday, November 08, 2017 22:01 - CONCLUSION: 1. No evidence of lumbar disc disease. 2. Soft tissue abnormality about the right gluteal region suggesting abscess with T2 prolongation and contrast enhancement ; this is incompletely included in the [id number] of the exam. 3. There is also abnormal signal within the marrow of the sacral and coccygeal marrow including contrast enhancement suggesting that the right thigh and gluteal abnormality may extend intraosseous, possibly osteomyelitis. Jace Bird MD GENERAL: Patient is in no acute distress. HEENT: SIMBA. EOMI, No icterus. NECK: Supple, no adenopathy. LUNGS: Clear breath sounds. CARDIAC: Regular rate and rhythm without murmur. ABDOMEN: Soft, non tender. EXTREMITIES: Swelling at the leg. Vac in place at r. hip and thigh. SKIN: No rash. IMPRESSION: Severe sepsis on admission. Right thigh/Hip abscess/osteomyelitis e. coli and Strep. Strep viridans bacteremia. Schizoaffective DO. RECOMMEND: Continue Vancomycin and Zosyn. Monitor temp. Monitor WBC. Dontfraid,Bebo F MD Nov 12, 2017 14:22
--- NOTE | 2017-11-12 16:41 | HHI.CCPN ---
Subjective Remarks/Hospital Course 41 year old male presents for evaluation of difficulty walking, generalized weakness that began earlier today. The patient arrives out in triage with a blood pressure systolic in the 70s. According to the patient's mother he has not been well since July. She reports that he was seen at another emergency department related to back and hip pain at that time. The patient at that time was also diagnosed with a fecal impaction and severe constipation. He has been since then seen by a extractions technologist. He was placed on a bowel regimen to help with the constipation, however his mother reports that he's been having difficulty maintaining it. The patient since July has been incontinent of stool and intermittently incontinent of urine. The stool is brown in color. The patient has a diagnosis of schizoaffective disorder and is a poor historian. His mother reports that he has a history of being diagnosed with a nerve problem involving the right leg and since Tuesday he has had swelling of the right leg. He reports having abdominal pain down in bilateral lower quadrants of the abdomen. He reports having nausea. They deny him having any known recent fevers, worsening cough or congestion, neck pain, chest pain, shortness of breath, weakness of his upper extremities, numbness or tingling of his upper extremities. The patient does however report having weakness of bilateral lower extremities with pain/sharp pains that shoot down into the right leg. The CT scan obtained in the emergency department shows abnormal appearance of the soft tissue of the proximal thigh and the gluteal region with fluid and gas tracking between the rectus muscle in the anterior thigh muscle. The combination of fluid and gas suggest either an infectious or necrotic process. 11/09: Ongoing resuscitation from sepsis due to right thigh abscess, extends to gluteal region, possible bone involvement? Urine acceptable. 11/10: S/P debridement right thigh abscess and wound vac. Septic behavior. Continue ventilator support, back to OR tomorrow. 11/11: No events over the night. Patient remains intubated and sedated. No pressors. Tmax 101.5, I/O 1950/2100. No family at bedside. 11/12: Hb low yesterday evening, received 2 units PRBC. Decreasing sedation to better assess mental status. No pressors. Good urine output. Tmax 100.3. ROS unobtainable, patient is intubated Objective Vital Signs Date Time Temp Pulse Resp B/P (MAP) Pulse Ox O2 Delivery O2 Flow Rate FiO2 11/12/17 14:57 100 40 11/12/17 14:00 74 11/12/17 12:00 100.1 16 111/56 (74) 11/12/17 07:00 Mechanical Ventilator Intake and Output 11/12/17 11/12/17 11/13/17 08:00 16:00 00:00 Intake Total 200 ml 100 ml Output Total 1210 ml Balance -1010 ml 100 ml Result Diagram: 11/12/17 0332 11/12/17 0332 Other Results Laboratory Tests Test 11/12/17 09:30 Blood Gas Puncture Site LT RADIAL Blood Gas Patient Temperature 98.6 Blood Gas HCO3 25 mmol/L (22-26) Blood Gas Base Excess -0.6 mmol/L (-2-2) Blood Gas Oxygen Saturation 96 % (90-100) Arterial Blood pH 7.32 (7.380-7.420) Arterial Blood Partial Pressure CO2 49 mmHg (38-42) Arterial Blood Partial Pressure O2 122 mmHg (61-120) Arterial Blood Oxygen Content 12.6 Vol % (12.0-20.0) Arterial Blood Carboxyhemoglobin 1.4 % (0-4) Arterial Blood Methemoglobin 0.8 % (0-2) Blood Gas Hemoglobin 9.1 G/DL (12.0-16.0) Oxygen Delivery Device VENTILATOR Blood Gas Ventilator Setting 16/600/PEEP5/1.0 Blood Gas Inspired Oxygen 40 % Imaging Last 24 hours Impressions Lower Extremity Ultrasound 11/08/172011 Signed Impressions: Service Date/Time: Wednesday, November 08, 2017 20:41 - CONCLUSION: 1. Negative for deep venous thrombosis. There are mildly enlarged right inguinal lymph nodes. Bertrand Smalls MD Chest X-Ray 11/08/172011 Signed Impressions: Service Date/Time: Wednesday, November 08, 2017 21:10 - CONCLUSION: 1. Subsegmental airspace disease right lung base. Finding may represent a small bronchopneumonia. Bertrand Smalls MD Abdomen/Pelvis CT 11/08/172011 Signed Impressions: Service Date/Time: Wednesday, November 08, 2017 22:54 - CONCLUSION: 1. Abnormal appearance of the soft tissues of the proximal thigh and gluteal region with fluid and gas tracking between the rectus muscles and the anterior thigh muscles. No focal abnormal areas of enhancement. The combination of fluid and gas suggests either an infectious or necrotic process. 2. Nonobstructing small calcified stone mid pole left kidney and multiple left renal cysts. 3. Small bilateral pleural effusions. Jace Bird MD Objective Remarks General - middle age gentleman, intubated, sedated, ill appearing HEENT - pupils are equal, reactive, sclerae are anicteric, neck is supple, no neck rigidity, no JVD, no carotid bruit, + ETT, + OGT CV - regular heart sounds, no murmurs Chest - scattered coarse breath sounds b/l, good air entry, no wheezes Abdomen soft, non-tender, non-distended, BS present, no hepatomegaly, no splenomegaly Skin - no rashes, no cyanosis Extremities - warm and well perfused, 2+ pitting edema of the right lower extremity, 1+ edema of the left lower extremity. Diffuse swelling over the right upper thigh, wound vac over the right hip Neuro - intubated and sedated, pupils equal, reactive, again, opens eyes to voice stimuli but does not follow commands A/P Assessment and Plan 1. Severe sepsis secondary to mixed clara thigh abscess/OM s/p I&D with wound vac placement 2. Viridans strep and CoNS bacteremia 3. Sacral OM 4. Hyponatremia - resolved, now hyperchloremic hypernatremia 5. Schizoaffective disorder 6. Acute respiratory failure - on minimal FiO2 requirements 1. Continue PRVC at current vent settings. Pip 24, synchronized with the vent, no auto PEEP 2. Vent bundle and bronchodilators 3. Antibiotics per ID 4. On sedation with propofol and pain management with fentanyl. Will try to wean 5. Stop NS and start D5W 6. On Depakote and Risperidone 7. DVT prophylaxis with SCD 8. GI prophylaxis 9. Tube feeds with free water No family at bedside Alfred Bates MD Nov 12, 2017 16:41
[2017-11-12] MEDS: DEXTROSE 5% IN WATE 1000ML INJ 1,000 ML IV SCH (17:52)
[2017-11-13] VITALS (16 sets, daily range): BP systolic 112–152; BP diastolic 60–83; PULSE 62–112; RESP 16–41; TEMP 97.8–99.1; O2SAT 91–100
[2017-11-13] MEDS: DEXTROSE 5% IN WATE 1000ML INJ 1,000 ML IV SCH ×2 (02:05→10:00)
[2017-11-13] MEDS: PIPERACIL-TAZO 4.5 GM PREMIX 100 ML IV SCH ×4 (02:58→20:56)
[2017-11-13] MEDS: CHLORHEXIDINE GLUCONATE 2 % 1 PACK (2 CLOTHS) TOP SCH (04:00)
[2017-11-13] MEDS ORDERED: PHARMACY ORDERED LAB ONE (05:45)
[2017-11-13] MEDS: PROPOFOL 1000 MG/100 ML IV PRN (06:06)
[2017-11-13] MEDS: fentaNYL DRIP 250 ML IV PRN (06:06)
[2017-11-13] MEDS: VANCOMYCIN 1,500 MG/NS 500 ML IV SCH ×2 (06:33)
[2017-11-13] MEDS: CHLORHEXIDINE 0.12% (ORAL KIT) 15 ML CUP MT SCH ×2 (08:00→20:00)
[2017-11-13] MEDS: VALPROIC ACID SYRUP 250 MG/5 ML UDC OG-TUBE SCH (08:02)
[2017-11-13] MEDS: FAMOTIDINE 20 MG/2 ML VIAL IV PUSH SCH ×2 (08:02→20:56)
[2017-11-13] MEDS: risperiDONE 3 MG TAB PO SCH (08:02)
[2017-11-13] MEDS: SODIUM CHLORIDE 0.9% FLUSH 10 ML FLUSH IV FLUSH SCH ×2 (08:03→20:56)
[2017-11-13] MEDS: hydrOXYzine HCL 50 MG TAB PO SCH ×2 (08:03→20:57)
[2017-11-13] MEDS ORDERED: RESP: RACEPINEPHRINE 2.25% 0.5 ML NEB ONE (08:39)
--- NOTE | 2017-11-13 10:02 | HHI.CCPN ---
Subjective Remarks/Hospital Course 41 year old male presents for evaluation of difficulty walking, generalized weakness that began earlier today. The patient arrives out in triage with a blood pressure systolic in the 70s. According to the patient's mother he has not been well since July. She reports that he was seen at another emergency department related to back and hip pain at that time. The patient at that time was also diagnosed with a fecal impaction and severe constipation. He has been since then seen by a tobacco sweeper. He was placed on a bowel regimen to help with the constipation, however his mother reports that he's been having difficulty maintaining it. The patient since July has been incontinent of stool and intermittently incontinent of urine. The stool is brown in color. The patient has a diagnosis of schizoaffective disorder and is a poor historian. His mother reports that he has a history of being diagnosed with a nerve problem involving the right leg and since Tuesday he has had swelling of the right leg. He reports having abdominal pain down in bilateral lower quadrants of the abdomen. He reports having nausea. They deny him having any known recent fevers, worsening cough or congestion, neck pain, chest pain, shortness of breath, weakness of his upper extremities, numbness or tingling of his upper extremities. The patient does however report having weakness of bilateral lower extremities with pain/sharp pains that shoot down into the right leg. The CT scan obtained in the emergency department shows abnormal appearance of the soft tissue of the proximal thigh and the gluteal region with fluid and gas tracking between the rectus muscle in the anterior thigh muscle. The combination of fluid and gas suggest either an infectious or necrotic process. 11/09: Ongoing resuscitation from sepsis due to right thigh abscess, extends to gluteal region, possible bone involvement? Urine acceptable. 11/10: S/P debridement right thigh abscess and wound vac. Septic behavior. Continue ventilator support, back to OR tomorrow. 11/11: No events over the night. Patient remains intubated and sedated. No pressors. Tmax 101.5, I/O 1949/2099. No family at bedside. 11/12: Hb low yesterday evening, received 2 units PRBC. Decreasing sedation to better assess mental status. No pressors. Good urine output. Tmax 100.3. 11/13: Few rhonchi but lungs generally clear - will try to extubate. Objective Vital Signs Date Time Temp Pulse Resp B/P (MAP) Pulse Ox O2 Delivery O2 Flow Rate FiO2 11/13/17 08:50 100 Nasal Cannula 4.00 11/13/17 08:00 98.3 90 16 122/64 (83) 11/13/17 08:00 35 Intake and Output 11/13/17 11/13/17 11/14/17 08:00 16:00 00:00 Intake Total 581 ml Output Total 1200 ml Balance -619 ml Result Diagram: 11/12/17 0332 11/12/17 0332 Imaging Last 24 hours Impressions Lower Extremity Ultrasound 11/08/172011 Signed Impressions: Service Date/Time: Wednesday, November 08, 2017 20:41 - CONCLUSION: 1. Negative for deep venous thrombosis. There are mildly enlarged right inguinal lymph nodes. Bertrand Smalls MD Chest X-Ray 11/08/172011 Signed Impressions: Service Date/Time: Wednesday, November 08, 2017 21:10 - CONCLUSION: 1. Subsegmental airspace disease right lung base. Finding may represent a small bronchopneumonia. Bertrand Smalls MD Abdomen/Pelvis CT 11/08/172011 Signed Impressions: Service Date/Time: Wednesday, November 08, 2017 22:54 - CONCLUSION: 1. Abnormal appearance of the soft tissues of the proximal thigh and gluteal region with fluid and gas tracking between the rectus muscles and the anterior thigh muscles. No focal abnormal areas of enhancement. The combination of fluid and gas suggests either an infectious or necrotic process. 2. Nonobstructing small calcified stone mid pole left kidney and multiple left renal cysts. 3. Small bilateral pleural effusions. Jace Bird MD Objective Remarks General - middle age gentleman, intubated, sedated, ill appearing HEENT - pupils are equal, reactive, sclerae are anicteric, neck is supple. CV - regular heart sounds, no murmurs Chest - scattered coarse breath sounds b/l, good air entry, no wheezes Abdomen soft, non-tender, non-distended, BS present, no hepatomegaly, no splenomegaly Skin - no rashes, no cyanosis Extremities - warm and well perfused, 2+ pitting edema of the right lower extremity, 1+ edema of the left lower extremity. Diffuse swelling over the right upper thigh, wound vac over the right hip Neuro - intubated and sedated, pupils equal, reactive, again, opens eyes to voice stimuli, follows commands A/P Assessment and Plan 1. Severe sepsis secondary to mixed clara thigh abscess/OM s/p I&D with wound vac placement 2. Viridans strep and CoNS bacteremia 3. Sacral OM 4. Hyponatremia - resolved, now hyperchloremic hypernatremia 5. Schizoaffective disorder 6. Acute respiratory failure - on minimal FiO2 requirements 1. Continue PRVC at current vent settings. Pip 24, synchronized with the vent, no auto PEEP -> sbts. 2. Vent bundle and bronchodilators 3. Antibiotics per ID 4. On sedation with propofol and pain management with fentanyl. Will try to wean 5. Stop NS and start D5W 6. On Depakote and Risperidone 7. DVT prophylaxis with SCD 8. GI prophylaxis 9. Tube feeds with free water Overall impression: Should be able to extubate. Tariq Garcia MD Nov 13, 2017 10:02
[2017-11-13] MEDS: RESP: ALBUTEROL 2.5 MG/IPRATROPIUM 0.5 MG NEB (PRN) INH ×2 (15:50→19:45)
[2017-11-13] MEDS: HYDROmorphone HCL PF 2 MG/ML VIAL IV PUSH PRN ×2 (16:44→20:39)
[2017-11-13] MEDS: VANCOMYCIN INJ 1,250 MG in SODIUM CHLOR 0.9% 250 ML INJ 250 ML IV SCH (17:28)
[2017-11-13] MEDS ORDERED: RISP3 PO (19:58)
[2017-11-13] MEDS ORDERED: DEPA500T3 PO (19:58)
[2017-11-13] MEDS ORDERED: HYDR50TA94 PO (19:58)
[2017-11-13] MEDS: risperiDONE ODT 3 MG TAB PO SCH (20:56)
[2017-11-13] MEDS: VALPROATE INJ 500 MG in SODIUM CHLORIDE 0.9% INJ 100 ML IV SCH (22:17)
[2017-11-14] VITALS (17 sets, daily range): BP systolic 122–140; BP diastolic 56–69; PULSE 84–96; RESP 24–36; TEMP 97.8–99.2; O2SAT 90–100
[2017-11-14] MEDS: HYDROmorphone HCL PF 2 MG/ML VIAL IV PUSH PRN ×7 (00:19→22:13)
[2017-11-14] MEDS: DEXTROSE 5% IN WATE 1000ML INJ 1,000 ML IV SCH ×4 (00:54→23:30)
[2017-11-14] MEDS: PIPERACIL-TAZO 4.5 GM PREMIX 100 ML IV SCH (03:26)
[2017-11-14] MEDS: RESP: ALBUTEROL 2.5 MG/IPRATROPIUM 0.5 MG NEB (SCH) NEB ×6 (03:50→23:29)
[2017-11-14] MEDS: CHLORHEXIDINE GLUCONATE 2 % 1 PACK (2 CLOTHS) TOP SCH (04:00)
[2017-11-14 05:13] LABS: AUTOMATED NEUTROPHIL # 17.2 TH/MM3 (1.8-7.7); BASOPHIL % 0.2 % (0.0-2.0); HEMATOCRIT 25.6 % (39.0-51.0); HEMOGLOBIN 8.1 GM/DL (13.0-17.0); LYMPH % 6.1 % (9.0-44.0); LYMPHOCYTE # 1.2 TH/MM3 (1.0-4.8); MEAN CELL VOLUME 82.9 FL (80.0-100.0); MEAN CORPUSCULAR HEMOGLOBIN 26.1 PG (27.0-34.0); MEAN CORPUSCULAR HGB CONC 31.5 % (32.0-36.0); MEAN PLATELET VOLUME 8.3 FL (7.0-11.0); MONO % 7.2 % (0.0-8.0); MONOCYTE # 1.4 TH/MM3 (0-0.9); NEUT % 86.5 % (16.0-70.0); PLATELET COUNT 207 TH/MM3 (150-450); RED BLOOD COUNT 3.08 MIL/MM3 (4.50-5.90); RED CELL DISTRIBUTION WIDTH 19.3 % (11.6-17.2); WHITE BLOOD COUNT 19.9 TH/MM3 (4.0-11.0)
--- NOTE | 2017-11-14 05:17 | RADRPT ---
EXAM DATE/TIME: 11/14/2017 04:22 [facility] COMPARISON: CHEST SINGLE AP, November 12, 2017, 8:17. INDICATIONS : Short of breath. MEDICAL HISTORY : Schizophrenia. Bipolar disorder. SURGICAL HISTORY : None. ENCOUNTER: Subsequent ACUITY: 4 - 6 days PAIN SCORE: 0/10 LOCATION: Bilateral chest FINDINGS: A single view of the chest demonstrates there is left basilar airspace consolidation. Minimal right b asilar opacity. No pneumothorax or significant effusion. CONCLUSION: 1. Left basilar airspace disease similar to November 12. Bertrand Smalls MD on November 14, 2017 at 5:13 Board Certified Radiologist. This report was verified electronically.
[2017-11-14 05:43] LABS: BICARBONATE 28.8 MEQ/L (21.0-32.0); CALCIUM 8.6 MG/DL (8.5-10.1); CREATININE 0.63 MG/DL (0.60-1.30)
[2017-11-14] MEDS: VANCOMYCIN INJ 1,250 MG in SODIUM CHLOR 0.9% 250 ML INJ 250 ML IV SCH (06:28)
[2017-11-14] MEDS: VALPROATE INJ 500 MG in SODIUM CHLORIDE 0.9% INJ 100 ML IV SCH ×3 (06:28→22:56)
--- NOTE | 2017-11-14 06:56 | HHI.CCPN ---
Subjective Remarks/Hospital Course 41 year old male presents for evaluation of difficulty walking, generalized weakness that began earlier today. The patient arrives out in triage with a blood pressure systolic in the 70s. According to the patient's mother he has not been well since July. She reports that he was seen at another emergency department related to back and hip pain at that time. The patient at that time was also diagnosed with a fecal impaction and severe constipation. He has been since then seen by a court messenger. He was placed on a bowel regimen to help with the constipation, however his mother reports that he's been having difficulty maintaining it. The patient since July has been incontinent of stool and intermittently incontinent of urine. The stool is brown in color. The patient has a diagnosis of schizoaffective disorder and is a poor historian. His mother reports that he has a history of being diagnosed with a nerve problem involving the right leg and since Tuesday he has had swelling of the right leg. He reports having abdominal pain down in bilateral lower quadrants of the abdomen. He reports having nausea. They deny him having any known recent fevers, worsening cough or congestion, neck pain, chest pain, shortness of breath, weakness of his upper extremities, numbness or tingling of his upper extremities. The patient does however report having weakness of bilateral lower extremities with pain/sharp pains that shoot down into the right leg. The CT scan obtained in the emergency department shows abnormal appearance of the soft tissue of the proximal thigh and the gluteal region with fluid and gas tracking between the rectus muscle in the anterior thigh muscle. The combination of fluid and gas suggest either an infectious or necrotic process. 11/09: Ongoing resuscitation from sepsis due to right thigh abscess, extends to gluteal region, possible bone involvement? Urine acceptable. 11/10: S/P debridement right thigh abscess and wound vac. Septic behavior. Continue ventilator support, back to OR tomorrow. 11/11: No events over the night. Patient remains intubated and sedated. No pressors. Tmax 101.5, I/O 1950/2100. No family at bedside. 11/12: Hb low yesterday evening, received 2 units PRBC. Decreasing sedation to better assess mental status. No pressors. Good urine output. Tmax 100.3. 11/13: Few rhonchi but lungs generally clear - will try to extubate. 11/14: Extubated 11/13 and breathing comfortably. Small left effusion. IV is D5W but sodium still elevated. DVT prophylaxis held for OR. Objective Vital Signs Date Time Temp Pulse Resp B/P (MAP) Pulse Ox O2 Delivery O2 Flow Rate FiO2 11/14/17 06:00 91 11/14/17 04:24 100 Non-Rebreather 15.00 11/14/17 04:00 99.2 31 122/56 (78) 11/13/17 19:00 100 Intake and Output 11/14/17 11/14/17 11/15/17 08:00 16:00 00:00 Intake Total 1100 ml Output Total 1650 ml Balance -550 ml Result Diagram: 11/14/17 03411/14/17346 Imaging Last 24 hours Impressions Lower Extremity Ultrasound 11/08/172011 Signed Impressions: Service Date/Time: Wednesday, November 08, 2017 20:41 - CONCLUSION: 1. Negative for deep venous thrombosis. There are mildly enlarged right inguinal lymph nodes. Bertrand Smalls MD Chest X-Ray 11/08/172011 Signed Impressions: Service Date/Time: Wednesday, November 08, 2017 21:10 - CONCLUSION: 1. Subsegmental airspace disease right lung base. Finding may represent a small bronchopneumonia. Bertrand Smalls MD Abdomen/Pelvis CT 11/08/172011 Signed Impressions: Service Date/Time: Wednesday, November 08, 2017 22:54 - CONCLUSION: 1. Abnormal appearance of the soft tissues of the proximal thigh and gluteal region with fluid and gas tracking between the rectus muscles and the anterior thigh muscles. No focal abnormal areas of enhancement. The combination of fluid and gas suggests either an infectious or necrotic process. 2. Nonobstructing small calcified stone mid pole left kidney and multiple left renal cysts. 3. Small bilateral pleural effusions. Jace Bird MD Objective Remarks General - middle age gentleman, extubated, ill appearing HEENT - pupils are equal, reactive, sclerae are anicteric, neck is supple. CV - regular heart sounds, no murmurs Chest - scattered coarse breath sounds b/l, good air entry, no wheezes Abdomen soft, non-tender, non-distended, BS present, no hepatomegaly, no splenomegaly Skin - no rashes, no cyanosis Extremities - warm and well perfused, 2+ pitting edema of the right lower extremity, 1+ edema of the left lower extremity. Diffuse swelling over the right upper thigh, wound vac over the right hip Neuro - pupils equal, reactive, again, follows commands, moves 4 limbs with 5/ 5. A/P Assessment and Plan 1. Severe sepsis secondary to mixed clara thigh abscess/OM s/p I&D with wound vac placement 2. Viridans strep and CoNS bacteremia 3. Sacral OM 4. Hyponatremia - resolved, now hyperchloremic hypernatremia 5. Schizoaffective disorder 6. Acute respiratory failure - on minimal FiO2 requirements 1. FM O2. 2.IS 3. Antibiotics per ID 4. Hold sedation, continue psych meds 5. Stop NS and start D5W 6. On Depakote and Risperidone 7. DVT prophylaxis with SCD 8. GI prophylaxis 9. Tube feeds with free water 10. IV D5W. Overall impression: Improving. Tariq Garcia MD Nov 14, 2017 06:56
[2017-11-14 07:44] LABS: BANDS 38 % (0-6); LYMPHOCYTES 4 % (9-44); METAMYELOCYTES 11 % (0-1); MONOCYTES 7 % (0-8); MYELOCYTES 6 % (0-0); NEUTROPHIL # MANUAL DIFF 17.7 TH/MM3 (1.8-7.7); POLYS (SEG NEUTROPHILS) 34 % (16-70); TARGET CELLS 1+ (NORMAL)
[2017-11-14] MEDS: CHLORHEXIDINE 0.12% (ORAL KIT) 15 ML CUP MT SCH ×2 (08:00→19:58)
[2017-11-14] MEDS: hydrOXYzine HCL 50 MG TAB PO SCH ×2 (09:00→20:25)
--- NOTE | 2017-11-14 09:32 | HHI.IDPN ---
Subjective Subjective Remarks is a 41 y/o CM with PMHx of Schizoaffective disorder on Haldol IM injections in bilateral buttocks. Patient reports getting these as outpatient by unknown doctor (different doctor each time per patient). Approx 1 month back after he received his last Haldol IM shot in right buttock patient noticed pain and swelling and decreased range of motion. Patient continued to receive Haldol shots in left buttock due to pain in right buttock. Patient reports his ability to move around has declined since last 1 week and he needs help with ADL phuong dressing himself due to significant pain on right lower extremity. Patient reports fevers chills and night sweats for the last 1 week prior to admission and significant worsening pain and swelling of his right lower extremity. Patient's past medical history is also significant for right dorsum of the foot marsh as a child as well as neuropathy. Per review of records it appears the patient's mother has reported that he hasn't been feeling well since July and has presented to another emergency department related to back and hip pain. The patient was diagnosed with fecal impaction and severe constipation was seen by hoisting laborer. Patient reports that he was on a bowel regimen to help with her constipation and that has been a challenge to maintain continence. Patient has had incontinence of stool and intermittently incontinence of urine since July. With this background patient presents to the emergency department for evaluation of difficulty walking, generalized weakness, weight loss loss of appetite. Reportedly while in the triage area his blood pressure was in the 70s systolic. Patient also reported abdominal pain in the lower quadrants radiating to his bilateral lower extremity but more so on the right. Patient reported nausea decrease in appetite and loss of about 20 pound weight in the last 1 month. Patient denies any recent intravenous drug abuse. Patient does endorse to receiving intramuscular Haldol in bilateral buttocks. The last right buttock Haldol injection was approximately 1 month back. Patient reports having weakness of bilateral lower extremities more so on the right especially because of sharp shooting pains down his right leg. In the emergency department patient received a total of 4 L of IV fluids as a part of severe sepsis workup and management. Cultures drawn at admission are currently pending. A CT scan of the abdomen showed appearance of soft tissue mass of the proximal thigh and gluteal region with fluid and gas tracking down the rectus muscle into the anterior thigh muscle. This is concerning for infectious or necrotic process. At the time of my evaluation patient is in the intensive surgical care unit. He has received 4 L of IV fluids normal saline. He has good urine output. Currently awake alert oriented 3, on room air. Infectious disease consulted for evaluation and management of severe sepsis, right buttock abscess possible osteomyelitis. Overnight events reviewed. Extubated Appears confused. No fevers No rash No diarrhea Not on pressors. Antibiotics Zosyn IV Vancomycin IV Lines Line sites with no evidence of infection. Past Medical History Neuropathy involving the right leg h/o marsh right foot dorsum as a child. Schizoaffective disorder, Depressions Anxiety Past Surgical History None per patient. Allergies: Coded Allergies: diphenhydramine (Verified Adverse Reaction, Unknown, 11/08/17) Objective . Vital Signs Date Time Temp Pulse Resp B/P (MAP) Pulse Ox O2 Delivery O2 Flow Rate FiO2 11/14/17 08:24 30 11/14/17 07:37 97 Venturi Mask 7.00 50 11/14/17 06:00 91 11/14/17 04:24 100 Non-Rebreather 15.00 11/14/17 04:00 99.2 86 31 122/56 (78) 100 11/14/17 04:00 86 11/14/17 02:00 84 11/14/17 00:00 99.1 96 32 140/69 (92) 99 11/14/17 00:00 96 11/13/17 22:00 96 11/13/17 20:00 99.1 112 41 152/77 (102) 98 11/13/17 20:00 112 11/13/17 19:48 98 Non-Rebreather 15.00 11/13/17 19:00 91 Non-Rebreather 15.00 100 11/13/17 18:00 90 11/13/17 16:00 97.8 111 24 148/73 (98) 97 11/13/17 16:00 90 11/13/17 14:00 90 11/13/17 12:00 98.4 90 24 143/68 (93) 91 11/13/17 12:00 90 11/13/17 10:00 90 . Laboratory Tests Test 11/14/17 03:47 White Blood Count 19.9 TH/MM3 Red Blood Count 3.08 MIL/MM3 Hemoglobin 8.1 GM/DL Hematocrit 25.6 % Mean Corpuscular Volume 82.9 FL Mean Corpuscular Hemoglobin 26.1 PG Mean Corpuscular Hemoglobin Concent 31.5 % Red Cell Distribution Width 19.3 % Platelet Count 207 TH/MM3 Mean Platelet Volume 8.3 FL Neutrophils (%) (Auto) 86.5 % Lymphocytes (%) (Auto) 6.1 % Monocytes (%) (Auto) 7.2 % Eosinophils (%) (Auto) 0.0 % Basophils (%) (Auto) 0.2 % Neutrophils # (Auto) 17.2 TH/MM3 Lymphocytes # (Auto) 1.2 TH/MM3 Monocytes # (Auto) 1.4 TH/MM3 Eosinophils # (Auto) 0.0 TH/MM3 Basophils # (Auto) 0.0 TH/MM3 CBC Comment AUTO DIFF Differential Total Cells Counted 100 Neutrophils % (Manual) 34 % Band Neutrophils % 38 % Lymphocytes % 4 % Monocytes % 7 % Neutrophils # (Manual) 17.7 TH/MM3 Metamyelocytes 11 % Myelocytes 6 % Differential Comment FINAL DIFF MANUAL Platelet Estimate NORMAL Platelet Morphology Comment NORMAL Target Cells 1+ Laboratory Tests Test 11/14/17 03:47 Blood Urea Nitrogen 15 MG/DL Creatinine 0.63 MG/DL Random Glucose 106 MG/DL Calcium Level 8.6 MG/DL Sodium Level 157 MEQ/L Potassium Level 3.2 MEQ/L Chloride Level 120 MEQ/L Carbon Dioxide Level 28.8 MEQ/L Anion Gap 8 MEQ/L Estimat Glomerular Filtration Rate 142 ML/MIN Imaging Last Impressions Chest X-Ray 11/09/17 0000 Signed Impressions: Service Date/Time: Thursday, November 09, 2017 16:23 - CONCLUSION: Minimal infiltrate left base new from comparison study. Rodrick Ch MD FACR Lower Extremity Ultrasound 11/08/172011 Signed Impressions: Service Date/Time: Wednesday, November 08, 2017 20:41 - CONCLUSION: 1. Negative for deep venous thrombosis. There are mildly enlarged right inguinal lymph nodes. Bertrand Smalls MD Abdomen/Pelvis CT 11/08/172011 Signed Impressions: Service Date/Time: Wednesday, November 08, 2017 22:54 - CONCLUSION: 1. Abnormal appearance of the soft tissues of the proximal thigh and gluteal region with fluid and gas tracking between the rectus muscles and the anterior thigh muscles. No focal abnormal areas of enhancement. The combination of fluid and gas suggests either an infectious or necrotic process. 2. Nonobstructing small calcified stone mid pole left kidney and multiple left renal cysts. 3. Small bilateral pleural effusions. Jace Bird MD Thoracic Spine MRI 11/08/17 0000 Signed Impressions: Service Date/Time: Wednesday, November 08, 2017 22:01 - CONCLUSION: 1. Small bilateral pleural effusions. 2. No signal abnormalities in the thoracic vertebral bodies and no evidence of focal disc disease. Jace Bird MD Lumbar Spine MRI 11/08/17 0000 Signed Impressions: Service Date/Time: Wednesday, November 08, 2017 22:01 - CONCLUSION: 1. No evidence of lumbar disc disease. 2. Soft tissue abnormality about the right gluteal region suggesting abscess with T2 prolongation and contrast enhancement ; this is incompletely included in the [id number] of the exam. 3. There is also abnormal signal within the marrow of the sacral and coccygeal marrow including contrast enhancement suggesting that the right thigh and gluteal abnormality may extend intraosseous, possibly osteomyelitis. Jace Bird MD Physical Exam GENERAL: Thin built, poorly nourished patient, in no apparent distress. SKIN: No rashes, ecchymoses or lesions. Cool and dry. HEAD: Atraumatic. Normocephalic. No temporal or scalp tenderness. EYES: Pupils equal round and reactive. Extraocular motions intact. No scleral icterus. No injection or drainage. ENT: Intubated. NECK: Trachea midline. Supple, nontender, no meningeal signs. CARDIOVASCULAR: HS audible. RESPIRATORY: Wheezing bilaterally. Basilar crackles. GASTROINTESTINAL: Abdomen soft, non-tender, nondistended. MUSCULOSKELETAL: The entire right lower extremity is significantly swollen compared to the left lower extremity. Decreased range of motion at the hip and knee as well as ankle joint due to significant pain. There is pitting edema noted at the thigh level. There is some skin lesions which appear like dry scab lesions on the thigh as well as in other parts of the body. There is some erythema induration and swelling as well as tenderness noted in the right thigh. Patient unable to turn due to pain. Wound VAC is in place. Pitting edema noted. NEUROLOGICAL: Sedated. Psych cooperative IV line sites with no e.o infection. Assessment & Plan Remarks Severe sepsis present on admission. Staph coag neg bacteremia: 1 out of 4 bottles likely contaminant. E.coli and Strep, mixed anaerobes (beta lactamase positive) right thigh abscess/ osteomyelitis Right thigh abscess possible myositis, osteomyelitis. Possible sacral osteomyelitis Schizoaffective disorder receives IM Haldol injections in the buttocks. Lower extremity neuropathy. Weight loss, loss of appetite Recommendations: DC Zosyn IV DC Vanco IV Start Ceftriaxone IV Start oral flagyl d/w Surgery team to see if BARRY wrap can be placed on lower part of extremity below knee. Also d.w them about elevation of leg if tolerated. Follow cultures to adjust antibiotic regimen. Follow clinically. d/w Surgery María Richard MD Nov 14, 2017 09:32
[2017-11-14] MEDS: cefTRIAXone INJ 2,000 MG in SODIUM CHLORIDE 0.9% INJ 100 ML IV SCH (09:45)
[2017-11-14] MEDS: SODIUM CHLORIDE 0.9% FLUSH 10 ML FLUSH IV FLUSH SCH ×2 (09:46→20:31)
[2017-11-14] MEDS: FAMOTIDINE 20 MG/2 ML VIAL IV PUSH SCH ×2 (09:46→20:31)
[2017-11-14] MEDS: risperiDONE ODT 3 MG TAB PO SCH ×2 (10:16→20:31)
--- NOTE | 2017-11-14 11:38 | PD.WCN.NOT ---
Wound Consult Description: Consult for VAC PLACEMENT to right hip per Dr Campos on 11/09/17. Contacted today for VAC change with BRIAN Watt Communicated with: BRIAN Watt RN Recommendation: Change wound VAC to right lateral buttock as ordered. Reinforce dressing for leaks as ordered previously per Dr Campos. If seal is unable to be obtained in 2 hours after loosing suction please remove dressing per protocol and place a NS moistened gauze dressing and secure until biofuels technology manager can replace. Additional Information: Patient seen on with LUIS Doshi and BRIAN Watt for wound VAC change of right lateral buttock post surgical I&D on 11/09/17 with large bore drain placement with wound VAC. Neg Pressure Wound Therapy Wound Location Wound Location: Right lateral buttock Wound Description Length: 2.4cm Width: 6.6cm Depth: 1.9cm Wound bed appearance: 100% Muscle Periwound appearance: Unremarkable Settings Suction: 125 mmHg, Continuous Intensity: Low Other Information: Bridged, Windowpaned, Mushroomed Foam type: Black Number of pieces: 2 Additonal Information Patient premedicated prior to entering patient room for wound VAC dressing removal. Patient was gently repositioned to his left side for assessment. BRIAN Watt gave verbal instructions to change wound VAC. VAC drape was removed from right lateral buttock using adhesive removal wipes. 1 piece black granufoam was removed from surgical wound bed. Wound presents with 100% muscle with a drain noted in center of wound bed. BRIAN Watt gave verbal instructions to remove drain from wound bed. Drain was removed and wound bed was cleansed with NS and gauze with minimal sanguinous drainage noted. Wound margins are sharp and clean with unremarkable periwound. Anterior upper thigh, anterior and posterior knee are noted with erythema and pitting edema. Periwound was prepped using Cavilon skin barrier film and allowed to dry prior to window paning and using VAC drape to bridge trac pad to right thigh. 1 piece of black granufoam was cut to fit wound bed and placed gently and secured with VAC drape. 1 long piece of black granufoam was cut and used to bridge wound VAC to right thigh where trac pad was placed over mushroom shaped black foam. Machine turned on and seal obtained with reinforcement of VAC drape for leak around trac pad that was found with assistance from LUIS Doshi. Bhavani Carrillo [facility] Nov 14, 2017 11:38
--- NOTE | 2017-11-14 12:34 | HHI.PR ---
cc: Bertrand Campos MD Subjective Subjective Notes DAILY PROGRESS NOTE FOR SURGICAL ATTENDING, DR. BERTRAND CAMPOS Agitated Wound Vac changed at bedside with LUIS Beckham and LUIS Doshi Objective Vitals/I&O Vital Signs Date Time Temp Pulse Resp B/P (MAP) Pulse Ox O2 Delivery O2 Flow Rate FiO2 11/14/17 11:08 27 11/14/17 07:37 97 Venturi Mask 7.00 50 11/14/17 06:00 91 11/14/17 04:00 99.2 122/56 (78) Labs Laboratory Tests Test 11/14/17 03:47 White Blood Count 19.9 Red Blood Count 3.08 Hemoglobin 8.1 Hematocrit 25.6 Mean Corpuscular Volume 82.9 Mean Corpuscular Hemoglobin 26.1 Mean Corpuscular Hemoglobin Concent 31.5 Red Cell Distribution Width 19.3 Platelet Count 207 Mean Platelet Volume 8.3 Neutrophils (%) (Auto) 86.5 Lymphocytes (%) (Auto) 6.1 Monocytes (%) (Auto) 7.2 Eosinophils (%) (Auto) 0.0 Basophils (%) (Auto) 0.2 Neutrophils # (Auto) 17.2 Lymphocytes # (Auto) 1.2 Monocytes # (Auto) 1.4 Eosinophils # (Auto) 0.0 Basophils # (Auto) 0.0 CBC Comment AUTO DIFF Differential Total Cells Counted 100 Neutrophils % (Manual) 34 Band Neutrophils % 38 Lymphocytes % 4 Monocytes % 7 Neutrophils # (Manual) 17.7 Metamyelocytes 11 Myelocytes 6 Differential Comment FINAL DIFF MANUAL Platelet Estimate NORMAL Platelet Morphology Comment NORMAL Target Cells 1+ Blood Urea Nitrogen 15 Creatinine 0.63 Random Glucose 106 Calcium Level 8.6 Sodium Level 157 Potassium Level 3.2 Chloride Level 120 Carbon Dioxide Level 28.8 Anion Gap 8 Estimat Glomerular Filtration Rate 142 Date/Time Source Procedure Growth Status 11/10/17 17:00 Blood Peripheral Aerobic Blood Culture - Preliminary NO GROWTH IN 4 DAYS Resulted 11/10/17 17:00 Blood Peripheral Anaerobic Blood Culture - Preliminary NO GROWTH IN 4 DAYS Resulted 11/08/17 21:45 Urine Catheterized Urine Urine Culture - Final NO GROWTH IN 48 HOURS. Complete 11/09/17 15:20 Wound Hip Fungal Smear - Final NO FUNGAL ELEMENTS SEEN. Resulted 11/09/17 15:20 Fungal Culture - Preliminary Yeast Species Resulted Radiology Last Impressions Chest X-Ray 11/09/17 0000 Signed Impressions: Service Date/Time: Thursday, November 09, 2017 16:23 - CONCLUSION: Minimal infiltrate left base new from comparison study. Rodrick Ch MD FACR Lower Extremity Ultrasound 11/08/172011 Signed Impressions: Service Date/Time: Wednesday, November 08, 2017 20:41 - CONCLUSION: 1. Negative for deep venous thrombosis. There are mildly enlarged right inguinal lymph nodes. Bertrand Smalls MD Abdomen/Pelvis CT 11/08/172011 Signed Impressions: Service Date/Time: Wednesday, November 08, 2017 22:54 - CONCLUSION: 1. Abnormal appearance of the soft tissues of the proximal thigh and gluteal region with fluid and gas tracking between the rectus muscles and the anterior thigh muscles. No focal abnormal areas of enhancement. The combination of fluid and gas suggests either an infectious or necrotic process. 2. Nonobstructing small calcified stone mid pole left kidney and multiple left renal cysts. 3. Small bilateral pleural effusions. Jace iBrd MD Thoracic Spine MRI 11/08/17 0000 Signed Impressions: Service Date/Time: Wednesday, November 08, 2017 22:01 - CONCLUSION: 1. Small bilateral pleural effusions. 2. No signal abnormalities in the thoracic vertebral bodies and no evidence of focal disc disease. Jace Bird MD Lumbar Spine MRI 11/08/17 0000 Signed Impressions: Service Date/Time: Wednesday, November 08, 2017 22:01 - CONCLUSION: 1. No evidence of lumbar disc disease. 2. Soft tissue abnormality about the right gluteal region suggesting abscess with T2 prolongation and contrast enhancement ; this is incompletely included in the [id number] of the exam. 3. There is also abnormal signal within the marrow of the sacral and coccygeal marrow including contrast enhancement suggesting that the right thigh and gluteal abnormality may extend intraosseous, possibly osteomyelitis. Jace Bird MD Cardiovascular: Regular Lungs: Clear Abdomen: Non-distended, Non-tender Extremities: Other Narrative Exam RIGHT hip: Wound vac removed; drain removed; wound bed beefy red; RIGHT thigh edematous mild erythema A/P Problem List: (1) Right leg swelling ICD Codes: M79.89 - Other specified soft tissue disorders Status: Acute (2) Abscess of gluteal region ICD Codes: L02.31 - Cutaneous abscess of buttock (3) Abscess of right hip ICD Codes: L02.415 - Cutaneous abscess of right lower limb (4) Neurogenic urinary incontinence ICD Codes: N39.498 - Other specified urinary incontinence Assessment and Plan 41 year old male with RIGHT hip abscess -Change Wound Vac today -Continue antibiotics---ID following -Diet as tolerated -Extubated; on NRB -If no improvement in thigh---will consider repeat imaging in the next 24-48 hours Attending Statement NOTE FOR SURGICAL ATTENDING, DR. BERTRAND CAMPOS Discussed with Dr. Mckeon I agree with above assessment and plan. The exam, history, and the medical decision-making described in the above note were completed with the assistance of the mid-level provider. I reviewed and agree with the findings presented. I attest that I had a [id number] encounter with the patient on the same day, and personally performed and documented my assessment and findings in the medical record. The following services were provided during this hospital visit: Chart data review, vital sign assessments/reviewing monitor data Review of consultations notes if present. Medication orders/review and/or management Ordering and/or reviewing lab tests Ordering and/or interpreting/reviewing x-rays and/or diagnostic studies Care of the patient and discussion of the patient with the care team Documentation time To help prompt me to consider important information that might be impacting today's encounter and assessment, information from prior notes written by myself or my colleagues may have been "brought forward/copy and pasted" into today's note. Kamille Watt Nov 14, 2017 12:34 Bertrand Campos MD Nov 15, 2017 07:58
--- NOTE | 2017-11-14 13:13 | HHI.NSPN ---
(Sarika Dawson) Note Status Status: Progress Note (Sarika Dawson) Interval History Interval History is a 41 y/o CM with history of Schizoaffective disorder, on monthly Haldol IM injections in bilateral buttocks. Patient reports getting these as outpatient by unknown doctor (different doctor each time per patient). Approx 1 month back after he received his last Haldol IM shot in right buttock. His medical history is also significant for right dorsum of the foot [place] as a child as well as neuropathy. Apparently he receives intramuscular Haldol in bilateral buttocks. The last right buttock Haldol injection was approximately 1 month ago. He reports having problems with his bladder control. CT scan of the abdomen showed appearance of soft tissue mass of the proximal thigh and gluteal region with fluid and gas tracking down the rectus muscle into the anterior thigh muscle. He presents to the emergency department with generalized weakness, weight loss, and loss of appetite. Had decrease in appetite and loss of about 20 pound weight in the last 1 month. He is currently intubated and mechanical ventilated Apparently has had incontinence of stool and intermittently incontinence of urine since July. Neurosurgery was consulted for evaluation of possible sacral osteomyelitis. 11/11: remains intubated, and well sedated. returning to OR today with Dr. Campos for hip abscess 11/14: extubated, not answering questions, right leg warm and swollen - recent U/ S neg for dvts. (Sarika Dawson) Labs, Micro, & Vital Signs Results Date Time Temp Pulse Resp B/P (MAP) Pulse Ox O2 Delivery O2 Flow Rate FiO2 11/14/17 11:08 27 11/14/17 07:37 97 Venturi Mask 7.00 50 11/14/17 07:00 99 Non-Rebreather 15.00 100 11/14/17 06:00 91 11/14/17 04:24 100 Non-Rebreather 15.00 11/14/17 04:00 99.2 86 31 122/56 (78) 100 11/14/17 04:00 86 1/29/18 02:00 84 11/14/17 00:00 99.1 96 32 140/69 (92) 99 11/14/17 00:00 96 11/13/17 22:00 96 11/13/17 20:00 99.1 112 41 152/77 (102) 98 11/13/17 20:00 112 11/13/17 19:48 98 Non-Rebreather 15.00 11/13/17 19:00 91 Non-Rebreather 15.00 100 11/13/17 18:00 90 11/13/17 16:00 97.8 111 24 148/73 (98) 97 11/13/17 16:00 90 11/13/17 14:00 90 Constitutional Vital Signs Date Time Temp Pulse Resp B/P (MAP) Pulse Ox O2 Delivery O2 Flow Rate FiO2 11/14/17 11:08 27 11/14/17 07:37 97 Venturi Mask 7.00 50 11/14/17 07:00 99 Non-Rebreather 15.00 100 11/14/17 06:00 91 11/14/17 04:24 100 Non-Rebreather 15.00 11/14/17 04:00 99.2 86 31 122/56 (78) 100 11/14/17 04:00 86 11/14/17 02:00 84 11/14/17 00:00 99.1 96 32 140/69 (92) 99 11/14/17 00:00 96 11/13/17 22:00 96 11/13/17 20:00 99.1 112 41 152/77 (102) 98 11/13/17 20:00 112 11/13/17 19:48 98 Non-Rebreather 15.00 11/13/17 19:00 91 Non-Rebreather 15.00 100 11/13/17 18:00 90 11/13/17 16:00 97.8 111 24 148/73 (98) 97 11/13/17 16:00 90 11/13/17 14:00 90 (Sarika Dawson) Review of Systems ROS Limitations: Altered Mental Status (Sarika Dawson) Physical Exam Mr. Price is awake, eyes open, following intermittently simple commands. Mumbling only not answering questions. Cranial Nerves: Pupils 4mm equal, round, reactive to light. Eyes appear conjugated. Face musculature appeared symmetrical at rest. Cervical Spine: soft, supple Motor: moves upper extremities spontaneously on soft restraints, moves left leg , minimal movement right leg and foot. Right lower extremity diffuse swelling, warmth, pain to palpation. Reflexes: bilateral plantar flexion response. No ankle clonus. Cerebellar: cannot assess due to the patient's condition. Skin: warm and dry. Heart: NSR on monitor Lungs: clear (Sarika Dawson) Mr. Price is awake, eyes open, following intermittently simple commands. Mumbling only not answering questions. Cranial Nerves: Pupils 4mm equal, round, reactive to light. Eyes appear conjugated. Face musculature appeared symmetrical at rest. Cervical Spine: soft, supple Motor: moves upper extremities spontaneously on soft restraints, moves left leg , minimal movement right leg and foot. Right lower extremity diffuse swelling, warmth, pain to palpation. Reflexes: bilateral plantar flexion response. No ankle clonus. Cerebellar: cannot assess due to the patient's condition. Skin: warm and dry. Heart: NSR on monitor Lungs: clear (Venkatesh Hanley MD) Medications Current Medications Current Medications Medications (Trade) Dose Ordered Sig/Mega Route PRN Reason Start Time Stop Time Status Last Admin Dose Admin Divalproex Sodium (Depakote Dr) 500 mg BID PO 11/09/17 09:00 Future Hold 11/09/17 09:22 Hydroxyzine HCl (Atarax) 50 mg BID PO 11/09/17 09:00 11/13/17 08:03 Risperidone (risperDAL) 3 mg DAILY PO 11/09/17 09:00 Future Hold 11/13/17 08:02 Sodium Chloride (NS Flush) 2 ml UNSCH PRN IV FLUSH FLUSH AFTER USING IV ACCESS 11/08/17 23:15 Sodium Chloride (NS Flush) 2 ml BID IV FLUSH 11/09/17 09:00 11/14/17 09:46 Acetaminophen (Tylenol) 650 mg Q6H PRN PO PAIN 1-10 AND/OR FEVER >101F 11/08/17 23:15 11/11/17 04:42 Famotidine (Pepcid Inj) 20 mg Q12HR IV PUSH 11/09/17 09:00 11/14/17 09:46 Ondansetron HCl (Zofran Inj) 4 mg Q6H PRN IV PUSH NAUSEA OR VOMITING 1/23/18 23:15 Temazepam (Restoril) 15 mg HS PRN PO INSOMNIA 11/08/17 23:15 Albuterol/ Ipratropium (Duoneb Neb) 1 ampule Q2HR NEB PRN INH WHEEZING 11/08/17 23:15 11/13/17 19:45 Miscellaneous Information 1 Q361D XX 11/08/17 23:15 11/08/17 01:00 Chlorhexidine Gluconate (Chlorhexidine 2% Cloth) Taper DAILY@04 TOP 11/09/17 04:00 11/05/18 03:59 Chlorhexidine Gluconate (Chlorhexidine 2% Cloth) 3 pack UNSCH PRN TOP HYGIENIC CARE 11/08/17 23:15 Chlorhexidine Gluconate (Peridex 0.12% Liq) 15 ml BID@08,20 MT 11/09/17 20:00 11/14/17 08:00 Valproic Acid (Depakene Liq) 500 mg BID OG-TUBE 11/09/17 23:00 Future Hold 11/13/17 08:02 Dextrose 1,000 ml @ 100 mls/hr Q10H IV 11/12/17 16:45 11/14/17 10:26 Hydromorphone HCl (Dilaudid Pf Inj) 1 mg Q3H PRN IV PUSH Pain 6-10 11/13/17 16:00 11/14/17 10:38 Risperidone (risperDAL M-TAB) 3 mg Q12HR PO 11/13/17 21:00 11/14/17 10:16 Valproate Sodium 500 mg/Sodium Chloride 105 ml @ 105 mls/hr Q8HR IV 11/13/17 22:00 11/14/17 06:28 Albuterol/ Ipratropium (Duoneb Neb) 1 ampule Q4HR NEB NEB 11/14/17 00:00 11/14/17 11:47 Ceftriaxone Sodium 2000 mg/ Sodium Chloride 100 ml @ 200 mls/hr Q24H IV 11/14/17 09:00 11/14/17 09:45 Metronidazole (Flagyl) 500 mg Q8HR PO 11/14/17 14:00 (Sarika Dawson) Current Medications Current Medications Sodium Chloride 1,000 ml @ 1,000 mls/hr Q1H ONCE IV Last administered on at 20:28; Start 11/08/17 at 20:15; Stop 11/08/17 at 21:14; Status DC Sodium Chloride 1,000 ml @ 1,000 mls/hr Q1H ONCE IV Last administered on at 20:28; Start 11/08/17 at 20:15; Stop 11/08/17 at 21:14; Status DC Ondansetron HCl (Zofran Inj) 4 mg ONCE ONCE IV Last administered on 11/08/17at 20:29; Start 11/08/17 at 20:15; Stop 11/08/17 at 20:17; Status DC Sodium Chloride 1,000 ml @ 1,000 mls/hr Q1H ONCE IV ; Start 11/08/17 at 21:12; Stop 11/08/17 at 22:11; Status DC Sodium Chloride 1,000 ml @ 1,000 mls/hr Q1H ONCE IV ; Start 11/08/17 at 21:12; Stop 11/08/17 at 22:11; Status DC Sodium Chloride 400 ml @ 1,000 mls/hr Q24M ONCE IV Last administered on at 21:24; Start 11/08/17 at 21:12; Stop 11/08/17 at 21:35; Status DC Piperacillin Sod/ Tazobactam Sod 50 ml @ 100 mls/hr Q12H IV Last administered on 11/08/17at 21:49; Start 11/08/17 at 21:30; Stop 11/08/17 at 23:39; Status DC Vancomycin/Sodium Chloride 200 ml @ 200 mls/hr OB NURSE IV ; Start 11/08/17 at 21:30; Stop 11/09/17 at 13:53; Status DC Sodium Chloride 1,000 ml @ 1,000 mls/hr Q1H ONCE IV Last administered on at 23:20; Start 11/08/17 at 22:15; Stop 11/08/17 at 23:14; Status DC Iohexol (Omnipaque 350 Inj) 85 ml STK-MED ONCE IVCONTRAST Last administered on 11/08/17at 23:07; Start 11/08/17 at 23:07; Stop 11/08/17 at 23:08; Status DC Divalproex Sodium (Depakote Dr) 500 mg BID PO Last administered on 11/09/17 09 :22; Start 11/09/17 at 09:00; Status Future Hold Hydroxyzine HCl (Atarax) 50 mg BID PO Last administered on 11/15/17at 20:53; Start 11/09/17 at 09:00 Risperidone (risperDAL) 3 mg DAILY PO Last administered on 11/13/17at 08:02; Start 11/09/17 at 09:00; Status Future Hold Sodium Chloride (NS Flush) 2 ml UNSCH PRN IV FLUSH FLUSH AFTER USING IV ACCESS ; Start 11/08/17 at 23:15 Sodium Chloride (NS Flush) 2 ml BID IV FLUSH Last administered on 11/16/17at 08: 28; Start 11/09/17 at 09:00 Acetaminophen (Tylenol) 650 mg Q6H PRN PO PAIN 1-10 AND/OR FEVER >101F Last administered on 11/11/17at 04:42; Start 11/08/17 at 23:15 Famotidine (Pepcid Inj) 20 mg Q12HR IV PUSH Last administered on 11/16/17at 08: 28; Start 11/09/17 at 09:00 Ondansetron HCl (Zofran Inj) 4 mg Q6H PRN IV PUSH NAUSEA OR VOMITING; Start at 23:15 Temazepam (Restoril) 15 mg HS PRN PO INSOMNIA; Start 11/08/17 at 23:15 Albuterol/ Ipratropium (Duoneb Neb) 1 ampule Q2HR NEB PRN INH WHEEZING Last administered on 11/13/17at 19:45; Start 11/08/17 at 23:15 Heparin Sodium (Porcine) (Heparin Inj) 5,000 units Q8H SQ ; Start 11/08/17 at 23 :15; Stop 11/09/17 at 08:21; Status DC Miscellaneous Information 1 Q361D XX Last administered on 11/08/17at 01:00; Start 11/08/17 at 23:15 Chlorhexidine Gluconate (Chlorhexidine 2% Cloth) Taper DAILY@04 TOP ; Start at 04:00; Stop 11/05/18 at 03:59 Chlorhexidine Gluconate (Chlorhexidine 2% Cloth) 3 pack UNSCH PRN TOP HYGIENIC CARE; Start 11/08/17 at 23:15 Vancomycin HCl 1000 mg/Sodium Chloride 250 ml @ 250 mls/hr Q12H IV ; Start at 23:15; Status UNV Piperacillin Sod/ Tazobactam Sod 100 ml @ 200 mls/hr Q6H IV Last administered on 11/14/17at 03:26; Start 11/09/17 at 03:00; Stop 11/14/17 at 08:49; Status DC Sodium Chloride 1,000 ml @ 1,000 mls/hr Q1H ONCE IV ; Start 11/08/17 at 23:12; Stop 11/09/17 at 00:11; Status DC Sodium Chloride 1,000 ml @ 1,000 mls/hr Q1H ONCE IV ; Start 11/08/17 at 23:12; Stop 11/09/17 at 00:11; Status DC Sodium Chloride 400 ml @ 1,000 mls/hr Q24M ONCE IV ; Start 11/08/17 at 23:12; Stop 11/08/17 at 23:35; Status DC Gadodiamide (Omniscan Pf Inj) 15 ml STK-MED ONCE IV PUSH Last administered on at 23:27; Start 11/08/17 at 23:27; Stop 11/08/17 at 23:28; Status DC Vancomycin HCl 1000 mg/Sodium Chloride 250 ml @ 250 mls/hr Q12H IV Last administered on 11/09/17at 11:55; Start 11/09/17 at 00:00; Stop 11/09/17 at 13:52 ; Status DC Metronidazole 100 ml @ 100 mls/hr ONCE ONCE IV Last administered on at 02:18; Start 11/09/17 at 00:15; Stop 11/09/17 at 01:14; Status DC Clindamycin/ Sodium Chloride 50 ml @ 100 mls/hr Q6H IV Last administered on at 12:14; Start 11/09/17 at 06:00; Stop 11/10/17 at 16:03; Status DC Sodium Chloride 1,000 ml @ 999 mls/hr BOLUS ONCE IV ; Start 11/09/17 at 09:00 ; Stop 11/09/17 at 10:00; Status DC Sodium Chloride 1,000 ml @ 125 mls/hr Q8H IV Last administered on 11/12/17at 09 :00; Start 11/09/17 at 09:00; Stop 11/12/17 at 16:33; Status DC Pharmacy Profile Note 0 ml @ 0 mls/hr UNSCH OTHER ; Start 11/09/17 at 12:30; Stop 11/14/17 at 08:49; Status DC Vancomycin HCl 1500 mg/Sodium Chloride 515 ml @ 257.5 mls/ hr Q8H IV Last administered on 11/10/17at 17:46; Start 11/09/17 at 17:00; Stop 11/11/17 at 17:34 ; Status DC Miscellaneous Information SPECIFIC LAB TO BE DRAWN:VANCOMYCIN TROUGH DATE TO... ONCE ONCE .XX Last administered on 11/10/17at 16:45; Start 11/10/17 at 16:45; Stop 11/10/17 at 16:46; Status DC Bupivacaine HCl/ Epinephrine Bitart (Sensorcaine-Epinephrine 0.25% Inj) 50 ml STK-MED ONCE .ROUTE Last administered on 11/09/17at 15:02; Start 11/09/17 at 14: 59; Stop 11/09/17 at 15:00; Status DC Propofol 100 ml @ As Directed STK-MED ONCE .ROUTE ; Start 11/09/17 at 15:45; Stop 11/09/17 at 15:46; Status DC Propofol 100 ml @ 10.83 mls/ hr TITRATE PRN IV SEDATION Last administered on at 06:06; Start 11/09/17 at 16:30; Stop 11/13/17 at 20:26; Status DC Miscellaneous Information (RASS Change Order) 1 ea ONCE ONCE XX Last administered on 11/09/17at 17:19; Start 11/09/17 at 16:30; Stop 11/09/17 at 16:32 ; Status DC Miscellaneous Information ALL NURSING DEPARTME... UNSCH PRN .XX SEE LABEL COMMENTS; Start 11/09/17 at 16:00; Stop 11/10/17 at 15:59; Status DC Midazolam HCl (Versed Inj) 2 mg STK-MED ONCE .ROUTE ; Start 11/09/17 at 16:25; Stop 11/09/17 at 16:26; Status DC Fentanyl Citrate (fentaNYL INJ) 200 mcg STK-MED ONCE .ROUTE ; Start 11/09/17 at 16:26; Stop 11/09/17 at 16:27; Status DC Chlorhexidine Gluconate (Peridex 0.12% Liq) 15 ml BID@08,20 MT Last administered on 11/15/17at 20:00; Start 11/09/17 at 20:00 Propofol 100 ml @ 2.166 mls/ hr TITRATE PRN IV SEDATION; Start 11/09/17 at 17: 45; Stop 11/13/17 at 20:26; Status DC Fentanyl Citrate 250 ml @ 5 mls/hr TITRATE PRN IV SEDATION Last administered on 11/13/17at 06:06; Start 11/09/17 at 17:45; Stop 11/13/17 at 20:26; Status DC Valproic Acid (Depakene Liq) 500 mg BID OG-TUBE Last administered on 11/13/17at 08:02; Start 11/09/17 at 23:00; Status Future Hold Lactated Ringer's 1,000 ml @ As Directed STK-MED ONCE IV ; Start 11/09/17 at 12 :00; Stop 11/11/17 at 11:48; Status DC Lidocaine HCl (Xylocaine-Mpf 1% Inj) 5 ml STK-MED ONCE OTHER ; Start 11/09/17 at 12:00; Stop 11/11/17 at 11:48; Status DC Rocuronium Osteen (Zemuron Inj) 50 mg STK-MED ONCE IV PUSH ; Start 11/09/17 at 12:00; Stop 11/11/17 at 11:48; Status DC Neostigmine Methylsulfate (Prostigmine Inj) 5 mg STK-MED ONCE IV PUSH ; Start at 12:00; Stop 11/11/17 at 11:48; Status DC Glycopyrrolate (Robinul Inj) 1 mg STK-MED ONCE IV PUSH ; Start 11/09/17 at 12:00 ; Stop 11/11/17 at 11:48; Status DC Phenylephrine HCl (Neosynephrine/ NS 1000 Mcg/10ml Syr) 1,000 mcg STK-MED ONCE IV ; Start 11/09/17 at 12:00; Stop 11/11/17 at 11:48; Status DC Phenylephrine HCl (Neosynephrine Inj) 10 mg STK-MED ONCE IV ; Start 11/09/17 at 12:00; Stop 11/11/17 at 11:48; Status DC Dexamethasone Sodium Phosphate (Decadron Inj) 4 mg STK-MED ONCE IV ; Start 11/09 at 12:00; Stop 11/11/17 at 11:48; Status DC Ondansetron HCl (Zofran Inj) 4 mg STK-MED ONCE IV ; Start 11/09/17 at 12:00; Stop 11/11/17 at 11:48; Status DC Propofol (Diprivan 200 Mg/20 ml Inj) 400 mg STK-MED ONCE IV ; Start 11/09/17 at 12:00; Stop 11/11/17 at 11:48; Status DC Vancomycin HCl 1500 mg/Sodium Chloride 515 ml @ 257.5 mls/ hr Q12H IV Last administered on 11/13/17at 06:33; Start 11/11/17 at 18:00; Stop 11/13/17 at 10:17 ; Status DC Miscellaneous Information SPECIFIC LAB TO BE SEDRICK... ONCE ONCE .XX Last administered on 11/13/17at 05:45; Start 11/13/17 at 05:45; Stop 11/13/17 at 05:46 ; Status DC Dextrose 1,000 ml @ 200 mls/hr Q5H IV Last administered on 11/16/17at 04:14; Start 11/12/17 at 16:45 Racepinephrine (Racepinephrine 2.25% Neb) 0.5 ml STK-MED ONCE .ROUTE Last administered on 11/13/17at 08:47; Start 11/13/17 at 08:39; Stop 11/13/17 at 08:40 ; Status DC Vancomycin HCl 1250 mg/Sodium Chloride 262.5 ml @ 250 mls/hr Q12H IV Last administered on 11/14/17at 06:28; Start 11/13/17 at 18:00; Stop 11/14/17 at 08:49 ; Status DC Miscellaneous Information SPECIFIC LAB TO BE SEDRICK... ONCE ONCE .XX ; Start 11/15 at 05:45; Stop 11/15/17 at 05:46; Status Cancel Hydromorphone HCl (Dilaudid Pf Inj) 1 mg Q3H PRN IV PUSH Pain 6-10 Last administered on 11/16/17at 14:12; Start 11/13/17 at 16:00 Risperidone (risperDAL M-TAB) 3 mg Q12HR PO Last administered on 11/15/17at 20: 53; Start 11/13/17 at 21:00 Valproate Sodium 500 mg/Sodium Chloride 105 ml @ 105 mls/hr Q8HR IV Last administered on 11/16/17at 06:18; Start 11/13/17 at 22:00 Albuterol/ Ipratropium (Duoneb Neb) 1 ampule Q4HR NEB NEB Last administered on 11/16/17at 08:40; Start 11/14/17 at 00:00 Ceftriaxone Sodium 2000 mg/ Sodium Chloride 100 ml @ 200 mls/hr Q24H IV Last administered on 11/16/17at 07:59; Start 11/14/17 at 09:00 Metronidazole (Flagyl) 500 mg Q8HR PO ; Start 11/14/17 at 14:00; Stop 11/14/17 at 15:22; Status DC Fentanyl (Duragesic 50 Mcg Patch.72 Hr) 1 patch ONCE ONCE T-DERMAL Last administered on 11/14/17at 14:10; Start 11/14/17 at 14:00; Stop 11/14/17 at 14:01 ; Status DC Potassium Chloride 100 ml @ 50 mls/hr Q2H PRN IV For Potassium 2.8 - 3.2 mEq/L ; Start 11/14/17 at 14:00 Potassium Chloride 100 ml @ 50 mls/hr Q2H PRN IV For Potassium 2.8 - 3.2 mEq/ L Last administered on 11/15/17at 00:47; Start 11/14/17 at 14:00 Potassium Bicarb/ Potassium Chloride (K-Lyte Cl Eff) 50 meq UNSCH PRN PO For Potassium 3.3 - 3.5 mEq/L; Start 11/14/17 at 14:00 Potassium Chloride 100 ml @ 25 mls/hr UNSCH PRN IV For Potassium 3.3 - 3.5 mEq /L; Start 11/14/17 at 14:00 Potassium Chloride 100 ml @ 50 mls/hr Q2H PRN IV For Potassium 3.3 - 3.5 mEq/ L Last administered on 11/15/17at 23:08; Start 11/14/17 at 14:00 Magnesium Sulfate 4 gm/Sodium Chloride 100 ml @ 50 mls/hr UNSCH PRN IV For Magnesium 0.9 - 1.1 mg/dL; Start 11/14/17 at 14:00 Magnesium Oxide (Mag-Ox) 800 mg UNSCH PRN PO For Magnesium 1.2 - 1.6 mg/dL; Start 11/14/17 at 14:00 Magnesium Sulfate 2 gm/Sodium Chloride 100 ml @ 50 mls/hr UNSCH PRN IV For Magnesium 1.2 - 1.6 mg/dL; Start 11/14/17 at 14:00 Potassium Phosphate (K-Phos) 2,000 mg Q4H PRN PO For Phosphorus < 2.5 mg/dL; Start 11/14/17 at 14:00 Sodium Phosphate 30 mmol/Sodium Chloride 250 ml @ 42 mls/hr UNSCH PRN IV For Phosphorus < 2.5 mg/dL; Start 11/14/17 at 14:00 Potassium Phosphate (K-Phos) 2,000 mg UNSCH PRN PO/TUBE SEE LABEL COMMENTS; Start 11/14/17 at 14:00 Potassium Phosphate 30 mmol/ Sodium Chloride 260 ml @ 42 mls/hr UNSCH PRN IV SEE LABEL COMMENTS; Start 11/14/17 at 14:00 Miscellaneous Information 1 ONCE ONCE T-DERMAL ; Start 11/17/17 at 14:00; Stop 11/17/17 at 14:01 Metronidazole 100 ml @ 100 mls/hr Q8HR IV Last administered on 11/16/17at 14:12 ; Start 11/14/17 at 16:00 Micafungin Sodium 150 mg/Sodium Chloride 100 ml @ 100 mls/hr Q24H IV Last administered on 11/16/17at 14:21; Start 11/15/17 at 09:00 Lorazepam (Ativan Inj) 4 mg ONCE ONCE IV PUSH Last administered on 11/15/17at 10:22; Start 11/15/17 at 10:15; Stop 11/15/17 at 10:16; Status DC Iohexol (Omnipaque 350 Inj) 92 ml STK-MED ONCE IVCONTRAST Last administered on 11/15/17at 13:38; Start 11/15/17 at 13:38; Stop 11/15/17 at 13:39; Status DC Nystatin (Mycostatin Cream) 1 applic Q6HR TOPICAL Last administered on at 06:00; Start 11/15/17 at 18:00 Vancomycin HCl 1250 mg/Sodium Chloride 262.5 ml @ 262.5 mls/ hr ONCE ONCE IV Last administered on 11/15/17at 18:09; Start 11/15/17 at 17:15; Stop 11/15/17 at 18:14; Status DC Pharmacy Profile Note 0 ml @ 0 mls/hr UNSCH OTHER ; Start 11/15/17 at 17:15 Sodium Chloride 500 ml @ 500 mls/hr BOLUS ONCE IV Last administered on at 07:33; Start 11/16/17 at 07:30; Stop 11/16/17 at 08:29; Status DC Furosemide (Lasix Inj) 20 mg UNSCH X1 IV PUSH Last administered on 11/16/17at 08:28; Start 11/16/17 at 07:45; Stop 11/16/17 at 23:59 Potassium Chloride 100 ml @ 50 mls/hr Q2H IV Last administered on 11/16/17at 10 :38; Start 11/16/17 at 07:45; Stop 11/16/17 at 11:44; Status DC Vancomycin HCl 1500 mg/Sodium Chloride 515 ml @ 257.5 mls/ hr Q12H IV Last administered on 11/16/17at 11:38; Start 11/16/17 at 12:00 Miscellaneous Information SPECIFIC LAB TO BE ... ONCE ONCE .XX ; Start at 23:45; Stop 11/17/17 at 23:46 Gentamicin Sulfate (Gentamicin Inj) 240 mg STK-MED ONCE .ROUTE ; Start 11/16/17 at 11:29; Stop 11/16/17 at 11:30; Status DC Vancomycin HCl (Vancomycin Inj) 4,000 mg STK-MED ONCE .ROUTE ; Start 11/16/17 at 11:40; Stop 11/16/17 at 11:41; Status DC Tobramycin Sulfate (Nebcin Inj) 2,400 mg STK-MED ONCE OTHER ; Start 11/16/17 at 11:40; Stop 11/16/17 at 11:41; Status DC Sugammadex Sodium (Bridion Inj) 200 mg STK-MED ONCE IV PUSH ; Start 11/16/17 at 11:47; Stop 11/16/17 at 11:48; Status DC Fentanyl Citrate (fentaNYL INJ) 100 mcg STK-MED ONCE .ROUTE ; Start 11/16/17 at 12:39; Stop 11/16/17 at 12:40; Status DC Midazolam HCl (Versed Inj) 2 mg STK-MED ONCE .ROUTE ; Start 11/16/17 at 12:39; Stop 11/16/17 at 12:40; Status DC Albuterol Sulfate (*ALBUTEROL NEB PERIprocedure ONLY) 2.5 mg STK-MED ONCE NEB Last administered on 11/16/17at 12:41; Start 11/16/17 at 12:41; Stop 11/16/17 at 12:42; Status DC Morphine Sulfate (*morphine INJ PERIprocedure ONLY) 4 mg STK-MED ONCE .ROUTE Last administered on 11/16/17at 13:30; Start 11/16/17 at 13:30; Stop 11/16/17 at 13:31; Status DC (Venkatesh Hanley MD) Medical Decision Making MDM Remarks 41 y/o male with osteomyelitis of the sacrum and iliac bones. No epidural abscess or cord compression. Right hip abscess - wound vac placement by Dr. Beth Rosa Leg U/S 11/08/17 neg for dvt (Sarika Dawson) MDM Remarks Last 48 hours Impressions Lower Extremity CT 11/15/17 0000 Signed Impressions: Service Date/Time: Wednesday, November 15, 2017 13:22 - CONCLUSION: Extensive fluid surrounding the quadriceps musculature of the right thigh as well as air within the collection anteriorly and laterally which raises the possibility of abscess/infection. Fluid is also noted extending into the region of the gluteus muscles on the right. Diffuse subcutaneous edema the right thigh is noted. Compartment syndrome should be ruled out. Jez Chowdhury MD Abdomen/Pelvis CT 11/15/17 0000 Signed Impressions: Service Date/Time: Wednesday, November 15, 2017 13:22 - CONCLUSION: The abnormal soft tissue mass now has compartmentalized fluid collections and absence of air in the right soft tissues of thigh and gluteal region. This probably represents improving inflammatory or infectious process such as abscess. Small bilateral pleural effusions persist with a new consolidation with air bronchogram in the left lower lobe. Ascitic fluid suggested in the pelvis Silvio Laguerre MD (Venkatesh Hanley MD) Plan Plan Remarks cont nonoperative treatment of sacral osteomyelitis cont IV antibiotics- per ID following cont mgt of right hip abscess per GS no further neurosurgical interventions planned, will sign off, call prn (Sarika Dawson) Plan Remarks 41 y/o male with osteomyelitis of the sacrum and iliac bones. No epidural abscess or cord compression. Right hip abscess - wound vac placement by Dr. Beth Rosa Leg U/S 11/08/17 neg for dvt (Venkatesh Hanley MD) Attending Statement cont nonoperative treatment of sacral osteomyelitis cont IV antibiotics- per ID following Further surgery for right hip abscess Pulmonary.. Continue aggressive pulmonary toilette, nasotracheal suction, and breathing treatments with nebulizers. Nutrition. NPO Renal. monitor closely urine output, BUN and creatinine Endocrine. Monitor serial Acu checks and SSI as needed in detail ID monitor for signs of infection Protonix for stress ulcer prophylaxis Carlos hose and SCD's for DVT prophylaxis. The exam, history, and the medical decision-making described in the above note were completed with the assistance of the mid-level provider. I reviewed and agree with the findings presented. I attest that I had a [id number] encounter with the patient on the same day, and personally performed and documented my assessment and findings in the medical record. (Venkatesh Hanley MD) Sarika Dawson Nov 14, 2017 13:13 Venkatesh Hanley MD Nov 16, 2017 14:38
[2017-11-14] MEDS ORDERED: SODIUM PHOSPHATE INJ 30 MMOL in SODIUM CHLOR 0.9% 250 ML INJ 240 ML IV PRN (14:00)
[2017-11-14] MEDS ORDERED: MAGNESIUM SULFATE INJ 2 GM in SODIUM CHLORIDE 0.9% INJ 96 ML IV PRN (14:00)
[2017-11-14] MEDS ORDERED: POTASSIUM PHOSPHATE MONOBASIC 500 MG TAB PO/TUBE PRN (14:00)
[2017-11-14] MEDS ORDERED: POTASSIUM PHOSPHATE INJ 30 MMOL in SODIUM CHLOR 0.9% 250 ML INJ 250 ML IV PRN (14:00)
[2017-11-14] MEDS ORDERED: POTASSIUM PHOSPHATE MONOBASIC 500 MG TAB PO PRN (14:00)
[2017-11-14] MEDS ORDERED: POTASSIUM CHLORIDE 25 MEQ EFFERVESCENT TAB PO PRN (14:00)
[2017-11-14] MEDS ORDERED: fentaNYL 50 MCG/HR PATCH T-DERMAL ONE (14:00)
[2017-11-14] MEDS ORDERED: MAGNESIUM SULFATE INJ 4 GM in SODIUM CHLORIDE 0.9% INJ 92 ML IV PRN (14:00)
[2017-11-14] MEDS ORDERED: MAGNESIUM OXIDE 400 MG TAB PO PRN (14:00)
[2017-11-14] MEDS ORDERED: POTASSIUM CHLOR 40 MEQ PREMIX 100 ML IV PRN ×2 (14:00)
[2017-11-14] MEDS ORDERED: metroNIDAZOLE 500 MG TAB PO SCH (14:00)
[2017-11-14] MEDS: METRONIDAZOLE 500 MG/100 ML ISONTONIC SOLN IV SCH ×2 (16:22→22:14)
[2017-11-14] MEDS: POTASSIUM CHLOR 20 MEQ PREMIX 100 ML IV PRN ×3 (18:00→22:40)
[2017-11-15] VITALS (15 sets, daily range): BP systolic 112–118; BP diastolic 54–58; PULSE 82–102; RESP 13–32; TEMP 98.4–99.9; O2SAT 93–100
[2017-11-15] MEDS: POTASSIUM CHLOR 20 MEQ PREMIX 100 ML IV PRN ×3 (00:47→23:08)
[2017-11-15] MEDS: HYDROmorphone HCL PF 2 MG/ML VIAL IV PUSH PRN ×7 (01:19→21:06)
[2017-11-15] MEDS: CHLORHEXIDINE GLUCONATE 2 % 1 PACK (2 CLOTHS) TOP SCH (04:00)
[2017-11-15] MEDS: RESP: ALBUTEROL 2.5 MG/IPRATROPIUM 0.5 MG NEB (SCH) NEB ×5 (04:24→20:14)
[2017-11-15 04:25] LABS: AUTOMATED NEUTROPHIL # 20.7 TH/MM3 (1.8-7.7); BASOPHIL % 0.2 % (0.0-2.0); HEMATOCRIT 24.4 % (39.0-51.0); HEMOGLOBIN 7.7 GM/DL (13.0-17.0); LYMPH % 5.6 % (9.0-44.0); LYMPHOCYTE # 1.3 TH/MM3 (1.0-4.8); MEAN CORPUSCULAR HEMOGLOBIN 26.4 PG (27.0-34.0); MEAN CORPUSCULAR HGB CONC 31.8 % (32.0-36.0); MEAN PLATELET VOLUME 8.4 FL (7.0-11.0); MONO % 5.9 % (0.0-8.0); MONOCYTE # 1.4 TH/MM3 (0-0.9); NEUT % 88.3 % (16.0-70.0); PLATELET COUNT 241 TH/MM3 (150-450); RED BLOOD COUNT 2.93 MIL/MM3 (4.50-5.90); RED CELL DISTRIBUTION WIDTH 19.1 % (11.6-17.2); WHITE BLOOD COUNT 23.4 TH/MM3 (4.0-11.0)
[2017-11-15 05:20] LABS: CALCIUM 7.8 MG/DL (8.5-10.1); CREATININE 0.55 MG/DL (0.60-1.30)
[2017-11-15] MEDS ORDERED: PHARMACY ORDERED LAB ONE (05:45)
[2017-11-15] MEDS: METRONIDAZOLE 500 MG/100 ML ISONTONIC SOLN IV SCH ×3 (05:56→21:58)
[2017-11-15] MEDS: VALPROATE INJ 500 MG in SODIUM CHLORIDE 0.9% INJ 100 ML IV SCH ×3 (05:56→21:58)
[2017-11-15 07:00] LABS: BANDS 37 % (0-6); CORRECTED NUCLEATED RBC 1 /100 WBC (0-0); LYMPHOCYTES 2 % (9-44); METAMYELOCYTES 1 % (0-1); MONOCYTES 3 % (0-8); MYELOCYTES 5 % (0-0); NEUTROPHIL # MANUAL DIFF 22.2 TH/MM3 (1.8-7.7); NUCLEATED RED BLOOD CELL 1 (0-0); POLYS (SEG NEUTROPHILS) 52 % (16-70)
[2017-11-15 07:01] LABS: TARGET CELLS 2+ (NORMAL)
--- NOTE | 2017-11-15 07:46 | HHI.CCPN ---
Subjective Remarks/Hospital Course 41 year old male presents for evaluation of difficulty walking, generalized weakness that began earlier today. The patient arrives out in triage with a blood pressure systolic in the 70s. According to the patient's mother he has not been well since July. She reports that he was seen at another emergency department related to back and hip pain at that time. The patient at that time was also diagnosed with a fecal impaction and severe constipation. He has been since then seen by a market analysis director. He was placed on a bowel regimen to help with the constipation, however his mother reports that he's been having difficulty maintaining it. The patient since July has been incontinent of stool and intermittently incontinent of urine. The stool is brown in color. The patient has a diagnosis of schizoaffective disorder and is a poor historian. His mother reports that he has a history of being diagnosed with a nerve problem involving the right leg and since Tuesday he has had swelling of the right leg. He reports having abdominal pain down in bilateral lower quadrants of the abdomen. He reports having nausea. They deny him having any known recent fevers, worsening cough or congestion, neck pain, chest pain, shortness of breath, weakness of his upper extremities, numbness or tingling of his upper extremities. The patient does however report having weakness of bilateral lower extremities with pain/sharp pains that shoot down into the right leg. The CT scan obtained in the emergency department shows abnormal appearance of the soft tissue of the proximal thigh and the gluteal region with fluid and gas tracking between the rectus muscle in the anterior thigh muscle. The combination of fluid and gas suggest either an infectious or necrotic process. 11/09: Ongoing resuscitation from sepsis due to right thigh abscess, extends to gluteal region, possible bone involvement? Urine acceptable. 11/10: S/P debridement right thigh abscess and wound vac. Septic behavior. Continue ventilator support, back to OR tomorrow. 11/11: No events over the night. Patient remains intubated and sedated. No pressors. Tmax 101.5, I/O 1950/2100. No family at bedside. 11/12: Hb low yesterday evening, received 2 units PRBC. Decreasing sedation to better assess mental status. No pressors. Good urine output. Tmax 100.3. 11/13: Few rhonchi but lungs generally clear - will try to extubate. 11/14: Extubated 11/13 and breathing comfortably. Small left effusion. IV is D5W but sodium still elevated. DVT prophylaxis held for OR. 11/15: Worsening sepsis, WBC increased to 23,400. Wound cx from 11/09/17 also growing yeast. I will start micafungin 150 mg daily, first dose stat. Discussed with ID Dr. Upton- send blood cultures. Also sodium noted to be climbing today 160. Increased D5W to 200 ML per hour and check BMP 2 PM Objective Vital Signs Date Time Temp Pulse Resp B/P (MAP) Pulse Ox O2 Delivery O2 Flow Rate FiO2 11/15/17 06:00 102 11/15/17 04:26 93 Nasal Cannula 4.00 11/15/17 04:00 98.4 13 118/56 (76) 11/14/17 07:37 50 Intake and Output 11/15/17 11/15/17 11/16/17 08:00 16:00 00:00 Intake Total 103 ml Output Total 1050 ml Balance -947 ml Result Diagram: 11/15/17 0249 11/15/17 0249 Imaging Last 24 hours Impressions Lower Extremity Ultrasound 11/08/172011 Signed Impressions: Service Date/Time: Wednesday, November 08, 2017 20:41 - CONCLUSION: 1. Negative for deep venous thrombosis. There are mildly enlarged right inguinal lymph nodes. Bertrand Smalls MD Chest X-Ray 11/08/172011 Signed Impressions: Service Date/Time: Wednesday, November 08, 2017 21:10 - CONCLUSION: 1. Subsegmental airspace disease right lung base. Finding may represent a small bronchopneumonia. Bertrand Smalls MD Abdomen/Pelvis CT 11/08/172011 Signed Impressions: Service Date/Time: Wednesday, November 08, 2017 22:54 - CONCLUSION: 1. Abnormal appearance of the soft tissues of the proximal thigh and gluteal region with fluid and gas tracking between the rectus muscles and the anterior thigh muscles. No focal abnormal areas of enhancement. The combination of fluid and gas suggests either an infectious or necrotic process. 2. Nonobstructing small calcified stone mid pole left kidney and multiple left renal cysts. 3. Small bilateral pleural effusions. Jace Bird MD Objective Remarks General - middle age gentleman, ill appearing HEENT - pupils are equal, reactive, sclerae are anicteric, neck is supple. CV - regular heart sounds, no murmurs Chest - scattered coarse breath sounds b/l, good air entry, no wheezes Abdomen soft, non-tender, non-distended, BS present Skin - no rashes, no cyanosis Extremities - 2+ pitting edema of the right lower extremity, 1+ edema of the left lower extremity. Diffuse swelling and redness over the right upper thigh, wound vac over the right hip, tender to touch Neuro - pupils equal, reactive, follows commands, moves 4 limbs with 5/5. A/P Assessment and Plan ASSESSMENT: 1. Severe sepsis secondary to mixed clara, yeast thigh abscess/OM s/p I&D with wound vac placement 2. Viridans strep and CoNS bacteremia 3. Sacral OM 4. Hyponatremia - resolved, now hyperchloremic hypernatremia 5. Schizoaffective disorder 6. Acute respiratory failure - on minimal FiO2 requirements PLAN: 1. Add micafungin 150 mg daily for yeast in wound culture, send fungal blood cultures 2. Antibiotics per ID (Ceftriaxone IV, oral Flagyl) 3. FM O2. IS 4. Continue psych meds 5. On D5W at 100 ml per hour, increase to 200 ML per hour as sodium is 160. CMP at 2 PM 6. On Depakote and Risperidone 7. DVT prophylaxis with SCD 8. GI prophylaxis 9. Tube feeds with free water, if fails swallow again Overall impression: Worsening sepsis with white count increasing to 24,000, now with ease in the wound culture. Micafungin added. Free water increased for severe hypernatremia CCT 32 Maxmius Zaldivar MD Nov 15, 2017 07:46
[2017-11-15] MEDS: CHLORHEXIDINE 0.12% (ORAL KIT) 15 ML CUP MT SCH ×2 (08:00→20:00)
[2017-11-15] MEDS: hydrOXYzine HCL 50 MG TAB PO SCH ×2 (08:43→20:53)
[2017-11-15] MEDS: risperiDONE ODT 3 MG TAB PO SCH ×2 (08:43→20:53)
[2017-11-15] MEDS: FAMOTIDINE 20 MG/2 ML VIAL IV PUSH SCH ×2 (08:43→20:53)
[2017-11-15] MEDS: cefTRIAXone INJ 2,000 MG in SODIUM CHLORIDE 0.9% INJ 100 ML IV SCH (08:43)
[2017-11-15] MEDS: SODIUM CHLORIDE 0.9% FLUSH 10 ML FLUSH IV FLUSH SCH ×2 (08:44→20:53)
--- NOTE | 2017-11-15 09:00 | MP ---
cc: SUSAN CAMPOS M.D. DATE OF SURGERY 11/11/2017 PREOPERATIVE DIAGNOSIS Infected right hip. POSTOPERATIVE DIAGNOSIS Infected right hip. PROCEDURE Removal of VAC device, irrigation and debridement of right gluteal hip abscess with placement of drain and replacement of VAC. SURGEON Dr. Campos. INDICATIONS This is a pleasant gentleman who unfortunately got an abscess in his right hip gluteal region. Plans were made for return to the OR for VAC dressing change and to reassess the wound. DETAILS OF PROCEDURE The patient was taken to the operating room and placed in the left lateral decubitus position. He is already on the ventilator. The VAC device is removed. The wound is then inspected. There is good granulation tissue. There is not much purulent material left. There is beefy red healing tissue. This is irrigated with a liter of saline. We then place a large bore drain inferiorly and superiorly in the space and hook it up to the VAC device at 125 cm mercury pressure continuous. The patient tolerated the procedure well and had no immediate post-op complications. Susan Campos MD JDB/BT /7:13 PM /8:52 AM
[2017-11-15] MEDS: DEXTROSE 5% IN WATE 1000ML INJ 1,000 ML IV SCH ×2 (09:04→21:30)
[2017-11-15] MEDS: MICAFUNGIN INJ 150 MG in SODIUM CHLORIDE 0.9% INJ 100 ML IV SCH (09:27)
[2017-11-15] MEDS ORDERED: LORazepam 2 MG/ML VIAL IV PUSH ONE (10:15)
--- NOTE | 2017-11-15 12:15 | HHI.PR ---
cc: Bertrand Campos MD Subjective Subjective Notes DAILY PROGRESS NOTE FOR SURGICAL ATTENDING, DR. BERTRAND CAMPOS Resting in bed Complaining more of a different pain in his right lower extremity more severe than it was in the past Needs to be reevaluated Discussed with Dr. Zaldivar about increased tenderness and tightness in RIGHT thigh ---patient more alert today --- does not feel "pins and needle" type feeling in that leg down to foot Objective Vitals/I&O Vital Signs Date Time Temp Pulse Resp B/P (MAP) Pulse Ox O2 Delivery O2 Flow Rate FiO2 11/15/17 12:00 99.9 86 28 118/56 (76) 100 11/15/17 08:08 Nasal Cannula 3.00 11/14/17 07:37 50 Labs Laboratory Tests Test 11/15/17 02:49 White Blood Count 23.4 Red Blood Count 2.93 Hemoglobin 7.7 Hematocrit 24.4 Mean Corpuscular Volume 83.0 Mean Corpuscular Hemoglobin 26.4 Mean Corpuscular Hemoglobin Concent 31.8 Red Cell Distribution Width 19.1 Platelet Count 241 Mean Platelet Volume 8.4 Neutrophils (%) (Auto) 88.3 Lymphocytes (%) (Auto) 5.6 Monocytes (%) (Auto) 5.9 Eosinophils (%) (Auto) 0.0 Basophils (%) (Auto) 0.2 Neutrophils # (Auto) 20.7 Lymphocytes # (Auto) 1.3 Monocytes # (Auto) 1.4 Eosinophils # (Auto) 0.0 Basophils # (Auto) 0.0 CBC Comment AUTO DIFF Differential Total Cells Counted 100 Neutrophils % (Manual) 52 Band Neutrophils % 37 Lymphocytes % 2 Monocytes % 3 Neutrophils # (Manual) 22.2 Metamyelocytes 1 Myelocytes 5 Nucleated Red Blood Cells 1 Differential Comment FINAL DIFF MANUAL Platelet Estimate NORMAL Platelet Morphology Comment ENLARGED Target Cells 2+ Blood Urea Nitrogen 13 Creatinine 0.55 Random Glucose 106 Calcium Level 7.8 Sodium Level 160 Potassium Level 3.8 Chloride Level 124 Carbon Dioxide Level 31.0 Anion Gap 5 Estimat Glomerular Filtration Rate 166 Date/Time Source Procedure Growth Status 11/15/17 10:51 Blood Peripheral Blood Fungal Culture Pending Received 11/15/17 10:51 Blood Peripheral Blood Fungal Culture Pending Received 11/08/17 21:45 Urine Catheterized Urine Urine Culture - Final NO GROWTH IN 48 HOURS. Complete 11/09/17 15:20 Wound Hip Fungal Smear - Final NO FUNGAL ELEMENTS SEEN. Resulted 11/09/17 15:20 Fungal Culture - Preliminary Yeast Species Resulted Radiology Last 72 hours Impressions Lower Extremity CT 11/15/17 0000 Signed Impressions: Service Date/Time: Wednesday, November 15, 2017 13:22 - CONCLUSION: Extensive fluid surrounding the quadriceps musculature of the right thigh as well as air within the collection anteriorly and laterally which raises the possibility of abscess/infection. Fluid is also noted extending into the region of the gluteus muscles on the right. Diffuse subcutaneous edema the right thigh is noted. Compartment syndrome should be ruled out. Jez Chowdhury MD Abdomen/Pelvis CT 11/15/17 0000 Signed Impressions: Service Date/Time: Wednesday, November 15, 2017 13:22 - CONCLUSION: The abnormal soft tissue mass now has compartmentalized fluid collections and absence of air in the right soft tissues of thigh and gluteal region. This probably represents improving inflammatory or infectious process such as abscess. Small bilateral pleural effusions persist with a new consolidation with air bronchogram in the left lower lobe. Ascitic fluid suggested in the pelvis Silvio Laguerre MD Chest X-Ray 11/14/17 0600 Signed Impressions: Service Date/Time: Tuesday, November 14, 2017 04:22 - CONCLUSION: 1. Left basilar airspace disease similar to November 12. Bertrand Smalls MD Last 72 hours Impressions Abdomen/Pelvis CT 11/15/17 0000 Signed Impressions: Service Date/Time: Wednesday, November 15, 2017 13:22 - CONCLUSION: The abnormal soft tissue mass now has compartmentalized fluid collections and absence of air in the right soft tissues of thigh and gluteal region. This probably represents improving inflammatory or infectious process such as abscess. Small bilateral pleural effusions persist with a new consolidation with air bronchogram in the left lower lobe. Ascitic fluid suggested in the pelvis Silvio Laguerre MD Chest X-Ray 11/14/17 0600 Signed Impressions: Service Date/Time: Tuesday, November 14, 2017 04:22 - CONCLUSION: 1. Left basilar airspace disease similar to November 12. Bertrand Smalls MD Last Impressions Chest X-Ray 11/09/17 0000 Signed Impressions: Service Date/Time: Thursday, November 09, 2017 16:23 - CONCLUSION: Minimal infiltrate left base new from comparison study. Rodrick Ch MD FACR Lower Extremity Ultrasound 11/08/172011 Signed Impressions: Service Date/Time: Wednesday, November 08, 2017 20:41 - CONCLUSION: 1. Negative for deep venous thrombosis. There are mildly enlarged right inguinal lymph nodes. Bertrand Smalls MD Abdomen/Pelvis CT 11/08/172011 Signed Impressions: Service Date/Time: Wednesday, November 08, 2017 22:54 - CONCLUSION: 1. Abnormal appearance of the soft tissues of the proximal thigh and gluteal region with fluid and gas tracking between the rectus muscles and the anterior thigh muscles. No focal abnormal areas of enhancement. The combination of fluid and gas suggests either an infectious or necrotic process. 2. Nonobstructing small calcified stone mid pole left kidney and multiple left renal cysts. 3. Small bilateral pleural effusions. Jace Bird MD Thoracic Spine MRI 11/08/17 0000 Signed Impressions: Service Date/Time: Wednesday, November 08, 2017 22:01 - CONCLUSION: 1. Small bilateral pleural effusions. 2. No signal abnormalities in the thoracic vertebral bodies and no evidence of focal disc disease. Jace Bird MD Lumbar Spine MRI 11/08/17 0000 Signed Impressions: Service Date/Time: Wednesday, November 08, 2017 22:01 - CONCLUSION: 1. No evidence of lumbar disc disease. 2. Soft tissue abnormality about the right gluteal region suggesting abscess with T2 prolongation and contrast enhancement ; this is incompletely included in the [id number] of the exam. 3. There is also abnormal signal within the marrow of the sacral and coccygeal marrow including contrast enhancement suggesting that the right thigh and gluteal abnormality may extend intraosseous, possibly osteomyelitis. Jace Bird MD Cardiovascular: Regular Lungs: Clear Abdomen: Other (see below ) Extremities: No edema Narrative Exam RIGHT hip: Wound vac in place with good seal; RIGHT thigh increased edema from yesterday's exam with mild erythema A/P Problem List: (1) Right leg swelling ICD Codes: M79.89 - Other specified soft tissue disorders Status: Acute (2) Abscess of gluteal region ICD Codes: L02.31 - Cutaneous abscess of buttock (3) Abscess of right hip ICD Codes: L02.415 - Cutaneous abscess of right lower limb (4) Neurogenic urinary incontinence ICD Codes: N39.498 - Other specified urinary incontinence (5) Abscess of lower leg ICD Codes: L02.419 - Cutaneous abscess of limb, unspecified (6) Cellulitis and abscess of lower extremity ICD Codes: L03.119 - Cellulitis of unspecified part of limb; L02.419 - Cutaneous abscess of limb, unspecified Assessment and Plan 41 year old male with RIGHT hip abscess -Continue Wound Vac -Continue antibiotics---ID following---+ yeast-- micafungin added -Will repeat CT abd/pelvis/RIGHT femur ---will follow up on images -Extubated; on NC -Discussed with Dr. Campos and Dr. Zaldivar Attending Statement NOTE FOR SURGICAL ATTENDING, DR. BERTRAND CAMPOS Patient has a change in his clinical status requiring more pain medicine for his right lower extremity We obtain CT imaging to evaluate this change in status Discussed with Dr. Reynaldo Dan Discussed with Dr. Zaldivar Patient will need return to OR for further debridement and exploration of this extending abscess. I agree with above assessment and plan. The exam, history, and the medical decision-making described in the above note were completed with the assistance of the mid-level provider. I reviewed and agree with the findings presented. I attest that I had a [id number] encounter with the patient on the same day, and personally performed and documented my assessment and findings in the medical record. The following services were provided during this hospital visit: Chart data review, vital sign assessments/reviewing monitor data Review of consultations notes if present. Medication orders/review and/or management Ordering and/or reviewing lab tests Ordering and/or interpreting/reviewing x-rays and/or diagnostic studies Care of the patient and discussion of the patient with the care team Documentation time To help prompt me to consider important information that might be impacting today's encounter and assessment, information from prior notes written by myself or my colleagues may have been "brought forward/copy and pasted" into today's note. Kamille Watt Nov 15, 2017 12:15 Bertrand Campos MD Nov 15, 2017 17:30
[2017-11-15] MEDS ORDERED: IOHEXOL 350 MG/ML 10 ML VIAL (for RAD DIAG) IVCONTRAST ONE (13:38)
--- NOTE | 2017-11-15 14:59 | RADRPT ---
EXAM DATE/TIME: 11/15/2017 13:22 [facility] COMPARISON: CT ABDOMEN & PELVIS W CONTRAST, November 08, 2017, 22:54. INDICATIONS : Evaluate for abscess IV CONTRAST: 92 cc Omnipaque 350 (iohexol) IV ; Cumulative dose for multiple exams. ORAL CONTRAST: No oral contrast ingested. RADIATION DOSE: 10.17 CTDIvol (mGy) MEDICAL HISTORY : None SURGICAL HISTORY : Placement of VAC on right hip ENCOUNTER: Initial ACUITY: 1 day PAIN SCALE: 6/10 LOCATION: Right TECHNIQUE: Volumetric scanning of the abdomen and pelvis was performed. Using automated exposure control and ad justment of the mA and/or kV according to patient size, radiation dose was kept as low as reasonably achievable to obtain optimal diagnostic quality images. DICOM format image data is available electro nically for review and comparison. FINDINGS: Since the prior examination the area of abnormal soft tissue in the right thigh and gluteal region tr acking into the rectus musculature and anterior thigh muscles as slightly diminished in volume when c ompartments of fluid and there is absence of air within this indicating probable improvement of an in fectious process. Small bilateral pleural effusions persist and there is a new consolidation with air bronchogram in the left lower lobe. There are findings suggesting ascitic flu id in the pelvis Punctate nonobstructing left kidney calc ulus calyceal is identified as well as left renal cysts. CONCLUSION: The abnormal soft tissue mass now has compartmentalized fluid collections and absence of air in the r ight soft tissues of thigh and gluteal region. This probably represents improving inflammatory or inf ectious process such as abscess. Small bilateral pleural effusions persist with a new consoli dation with air bronchogram in the left lower lobe. Ascitic fluid suggested in the pelvis Silvio Laguerre MD on November 15, 2017 at 14:50 Board Certified Radiologist. This report was verified electronically.
--- NOTE | 2017-11-15 15:43 | HHI.IDPN ---
Subjective Subjective Remarks is a 41 y/o CM with PMHx of Schizoaffective disorder on Haldol IM injections in bilateral buttocks. Patient reports getting these as outpatient by unknown doctor (different doctor each time per patient). Approx 1 month back after he received his last Haldol IM shot in right buttock patient noticed pain and swelling and decreased range of motion. Patient continued to receive Haldol shots in left buttock due to pain in right buttock. Patient reports his ability to move around has declined since last 1 week and he needs help with ADL phuong dressing himself due to significant pain on right lower extremity. Patient reports fevers chills and night sweats for the last 1 week prior to admission and significant worsening pain and swelling of his right lower extremity. Patient's past medical history is also significant for right dorsum of the foot marsh as a child as well as neuropathy. Per review of records it appears the patient's mother has reported that he hasn't been feeling well since July and has presented to another emergency department related to back and hip pain. 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 Patient reports that he was on a bowel regimen to help with her constipation and that has been a challenge to maintain continence. Patient has had incontinence of stool and intermittently incontinence of urine since July. With this background patient presents to the emergency department for evaluation of difficulty walking, generalized weakness, weight loss loss of appetite. Reportedly while in the triage area his blood pressure was in the 70s systolic. Patient also reported abdominal pain in the lower quadrants radiating to his bilateral lower extremity but more so on the right. Patient reported nausea decrease in appetite and loss of about 20 pound weight in the last 1 month. Patient denies any recent intravenous drug abuse. Patient does endorse to receiving intramuscular Haldol in bilateral buttocks. The last right buttock Haldol injection was approximately 1 month back. Patient reports having weakness of bilateral lower extremities more so on the right especially because of sharp shooting pains down his right leg. In the emergency department patient received a total of 4 L of IV fluids as a part of severe sepsis workup and management. Cultures drawn at admission are currently pending. A CT scan of the abdomen showed appearance of soft tissue mass of the proximal thigh and gluteal region with fluid and gas tracking down the rectus muscle into the anterior thigh muscle. This is concerning for infectious or necrotic process. At the time of my evaluation patient is in the intensive surgical care unit. He has received 4 L of IV fluids normal saline. He has good urine output. Currently awake alert oriented 3, on room air. Infectious disease consulted for evaluation and management of severe sepsis, right buttock abscess possible osteomyelitis. Overnight events reviewed. Appears confused. RN reports he recd Ativan for CT imaging. Low grade fevers. No rash No diarrhea Not on pressors. UO ok. Mom reports patient due for his depot Haldol injections. Explained to her Depot may not be appropriate in buttocks given infection issues. Will consult psych to help address. Antibiotics Ceftriaxone IV Flagyl Micafungin IV Lines Line sites with no evidence of infection. Past Medical History Neuropathy involving the right leg h/o marsh right foot dorsum as a child. Schizoaffective disorder, Depressions Anxiety Past Surgical History None per patient. Allergies: Coded Allergies: diphenhydramine (Verified Adverse Reaction, Unknown, 11/08/17) Objective . Vital Signs Date Time Temp Pulse Resp B/P (MAP) Pulse Ox O2 Delivery O2 Flow Rate FiO2 11/15/17 15:19 18 11/15/17 12:00 99.9 86 28 118/56 (76) 100 11/15/17 12:00 86 11/15/17 10:00 87 11/15/17 08:08 96 Nasal Cannula 3.00 11/15/17 08:00 98.9 88 25 115/55 (75) 98 11/15/17 08:00 88 11/15/17 07:00 95 Nasal Cannula 4.00 11/15/17 06:00 102 11/15/17 04:26 93 Nasal Cannula 4.00 11/15/17 04:00 98.4 94 13 118/56 (76) 95 11/15/17 04:00 94 11/15/17 02:00 90 11/15/17 00:00 93 11/15/17 00:00 98.5 93 25 115/56 (75) 95 11/14/17 23:30 96 Nasal Cannula 4.00 11/14/17 22:00 95 11/14/17 20:00 98.5 88 24 123/58 (79) 90 11/14/17 20:00 88 11/14/17 19:37 96 Nasal Cannula 4.00 11/14/17 19:00 97 Nasal Cannula 4.00 11/14/17 18:00 88 11/14/17 16:00 98.6 88 26 138/65 (89) 96 11/14/17 16:00 88 . Laboratory Tests Test 11/14/17 03:47 11/15/17 02:49 White Blood Count 19.9 TH/MM3 23.4 TH/MM3 Red Blood Count 3.08 MIL/MM3 2.93 MIL/MM3 Hemoglobin 8.1 GM/DL 7.7 GM/DL Hematocrit 25.6 % 24.4 % Mean Corpuscular Volume 82.9 FL 83.0 FL Mean Corpuscular Hemoglobin 26.1 PG 26.4 PG Mean Corpuscular Hemoglobin Concent 31.5 % 31.8 % Red Cell Distribution Width 19.3 % 19.1 % Platelet Count 207 TH/MM3 241 TH/MM3 Mean Platelet Volume 8.3 FL 8.4 FL Neutrophils (%) (Auto) 86.5 % 88.3 % Lymphocytes (%) (Auto) 6.1 % 5.6 % Monocytes (%) (Auto) 7.2 % 5.9 % Eosinophils (%) (Auto) 0.0 % 0.0 % Basophils (%) (Auto) 0.2 % 0.2 % Neutrophils # (Auto) 17.2 TH/MM3 20.7 TH/MM3 Lymphocytes # (Auto) 1.2 TH/MM3 1.3 TH/MM3 Monocytes # (Auto) 1.4 TH/MM3 1.4 TH/MM3 Eosinophils # (Auto) 0.0 TH/MM3 0.0 TH/MM3 Basophils # (Auto) 0.0 TH/MM3 0.0 TH/MM3 CBC Comment AUTO DIFF AUTO DIFF Differential Total Cells Counted 100 100 Neutrophils % (Manual) 34 % 52 % Band Neutrophils % 38 % 37 % Lymphocytes % 4 % 2 % Monocytes % 7 % 3 % Neutrophils # (Manual) 17.7 TH/MM3 22.2 TH/MM3 Metamyelocytes 11 % 1 % Myelocytes 6 % 5 % Differential Comment FINAL DIFF MANUAL FINAL DIFF MANUAL Platelet Estimate NORMAL NORMAL Platelet Morphology Comment NORMAL ENLARGED Target Cells 1+ 2+ Nucleated Red Blood Cells 1 /100 WBC Laboratory Tests Test 11/14/17 03:47 11/15/17 02:49 Blood Urea Nitrogen 15 MG/DL 13 MG/DL Creatinine 0.63 MG/DL 0.55 MG/DL Random Glucose 106 MG/DL 106 MG/DL Calcium Level 8.6 MG/DL 7.8 MG/DL Sodium Level 157 MEQ/L 160 MEQ/L Potassium Level 3.2 MEQ/L 3.8 MEQ/L Chloride Level 120 MEQ/L 124 MEQ/L Carbon Dioxide Level 28.8 MEQ/L 31.0 MEQ/L Anion Gap 8 MEQ/L 5 MEQ/L Estimat Glomerular Filtration Rate 142 ML/MIN 166 ML/MIN Microbiology Date/Time Source Procedure Growth Status 11/15/17 10:51 Blood Peripheral Blood Fungal Culture Pending Received 11/15/17 10:51 Blood Peripheral Blood Fungal Culture Pending Received 11/15/17 10:39 Blood Peripheral Aerobic Blood Culture Pending Received 11/15/17 10:39 Blood Peripheral Anaerobic Blood Culture Pending Received Imaging Last Impressions Chest X-Ray 11/09/17 0000 Signed Impressions: Service Date/Time: Thursday, November 09, 2017 16:23 - CONCLUSION: Minimal infiltrate left base new from comparison study. Rodrick Ch MD FACR Lower Extremity Ultrasound 11/08/172011 Signed Impressions: Service Date/Time: Wednesday, November 08, 2017 20:41 - CONCLUSION: 1. Negative for deep venous thrombosis. There are mildly enlarged right inguinal lymph nodes. Bertrand Smalls MD Abdomen/Pelvis CT 11/08/172011 Signed Impressions: Service Date/Time: Wednesday, November 08, 2017 22:54 - CONCLUSION: 1. Abnormal appearance of the soft tissues of the proximal thigh and gluteal region with fluid and gas tracking between the rectus muscles and the anterior thigh muscles. No focal abnormal areas of enhancement. The combination of fluid and gas suggests either an infectious or necrotic process. 2. Nonobstructing small calcified stone mid pole left kidney and multiple left renal cysts. 3. Small bilateral pleural effusions. Jace Bird MD Thoracic Spine MRI 11/08/17 0000 Signed Impressions: Service Date/Time: Wednesday, November 08, 2017 22:01 - CONCLUSION: 1. Small bilateral pleural effusions. 2. No signal abnormalities in the thoracic vertebral bodies and no evidence of focal disc disease. Jace Bird MD Lumbar Spine MRI 11/08/17 0000 Signed Impressions: Service Date/Time: Wednesday, November 08, 2017 22:01 - CONCLUSION: 1. No evidence of lumbar disc disease. 2. Soft tissue abnormality about the right gluteal region suggesting abscess with T2 prolongation and contrast enhancement ; this is incompletely included in the [id number] of the exam. 3. There is also abnormal signal within the marrow of the sacral and coccygeal marrow including contrast enhancement suggesting that the right thigh and gluteal abnormality may extend intraosseous, possibly osteomyelitis. Jace Bird MD Physical Exam GENERAL: Thin built, poorly nourished patient, in no apparent distress. SKIN: No rashes, ecchymoses or lesions. Cool and dry. HEAD: Atraumatic. Normocephalic. No temporal or scalp tenderness. EYES: Pupils equal round and reactive. Extraocular motions intact. No scleral icterus. No injection or drainage. ENT: NAD NECK: Trachea midline. Supple, nontender, no meningeal signs. CARDIOVASCULAR: HS audible. RESPIRATORY: Wheezing bilaterally. Basilar crackles. GASTROINTESTINAL: Abdomen soft, non-tender, nondistended. MUSCULOSKELETAL: The entire right lower extremity is significantly swollen compared to the left lower extremity. There is pitting edema noted at the thigh level. There is some skin lesions which appear like dry scab lesions on the thigh as well as in other parts of the body. There is some erythema induration and swelling as well as tenderness noted in the right thigh. Significant tenderness on right thigh. Wound VAC is in place. Pitting edema noted. NEUROLOGICAL: Opens eyes spontaneously. Winces on touching right thigh. Psych cooperative IV line sites with no e.o infection. Assessment & Plan Remarks Severe sepsis present on admission. Staph coag neg bacteremia: 1 out of 4 bottles likely contaminant. E.coli and Strep, mixed anaerobes (beta lactamase positive) right thigh abscess/ osteomyelitis Right thigh abscess possible myositis, osteomyelitis. Possible sacral osteomyelitis Schizoaffective disorder receives IM Haldol injections in the buttocks. Lower extremity neuropathy. Weight loss, loss of appetite Recommendations: Continue Ceftriaxone IV Continue IV flagyl Continue Micafungin IV. If overnight any change in clinical condition s/o sepsis/worsening infection, ok to broaden coverage. Dw in am: Micafungin in view of Yeast in intraop cultures. d/w Surgery CMA about new CT findings concerning for ongoing infections and the comment "Compartmentalized fluid collections" Await input. D/w Dr.John LA VILLA. Official CT LE report pending but on my review fluid collections along the length of muscles appear organized. alfonso Mom in presence of RN: update provided. CT pending from today informed her this can change the plan as if any fluid collections may need further surgical input based on review of imaging. Critical thinking, images reviewed, [email or web address] MDs and family. María Upton MD Nov 15, 2017 15:43
[2017-11-15] MEDS ORDERED: Vancomycin Consult Pharmacy 1 EA OTHER SCH (17:15)
[2017-11-15] MEDS ORDERED: VANCOMYCIN INJ 1,250 MG in SODIUM CHLOR 0.9% 250 ML INJ 250 ML IV ONE (17:15)
[2017-11-15] MEDS: NYSTATIN 100,000 UNIT/GM CREAM 15 GM TOPICAL SCH ×2 (18:02→23:39)
--- NOTE | 2017-11-15 18:05 | RADRPT ---
EXAM DATE/TIME: 11/15/2017 13:22 [facility] COMPARISON: No previous studies available for comparison. INDICATIONS : Evaluate for abscess IV CONTRAST: 92 cc Omnipaque 350 (iohexol) IV ; Cumulative dose for multiple exams. RADIATION DOSE: 10.07 CTDIvol (mGy) ; Combined studies - Abdomen/Pelvis MEDICAL HISTORY : None SURGICAL HISTORY : Placement of VAC on right hip ENCOUNTER: Initial ACUITY: 1 day PAIN SCALE: 6/10 LOCATION: Right proximal Femur TECHNIQUE: Volumetric scanning of the femur was performed. Using automated exposure control and adjustment of t he mA and/or kV according to patient size, radiation dose was kept as low as reasonably achievable to obtain optimal diagnostic quality images. DICOM format image data is available electronically for review and comparison. FINDINGS: There is extensive fluid surrounding the quadriceps musculature of the right thigh. There is also air throughout this fluid collection anteriorly and laterally which raises the possibility of abscess/in fection. There is also fluid collections extending into the region of the right gluteus musculature. Diffuse subcutaneous edema is noted involving the right thigh. Compartment syndrome should be ruled o ut in this patient. It is difficult to rule out osteomyelitis on the basis of this examination. No fr acture or dislocation of the right femur is noted. CONCLUSION: Extensive fluid surrounding the quadriceps musculature of the right thigh as well as air within the c ollection anteriorly and laterally which raises the possibility of abscess/infection. Fluid is also n oted extending into the region of the gluteus muscles on the right. Diffuse subcutaneous edema the ri ght thigh is noted. Compartment syndrome should be ruled out. Jez Chowdhury MD on November 15, 2017 at 17:57 Board Certified Radiologist. This report was verified electronically.
[2017-11-15 19:51] LABS: ALBUMIN 1.2 GM/DL (3.4-5.0); BICARBONATE 31.5 MEQ/L (21.0-32.0); CALCIUM 8.5 MG/DL (8.5-10.1); CHLORIDE 120 MEQ/L (98-107); CREATININE 0.66 MG/DL (0.60-1.30); GLOMERULAR FILTRATION RATE 134 ML/MIN (>89); GLUCOSE,RANDOM 126 MG/DL (74-106)
[2017-11-15 19:57] LABS: ALKALINE PHOSPHATASE 49 U/L (45-117); ALT (GPT) 14 U/L (12-78); AST (GOT) 28 U/L (15-37); TOTAL BILIRUBIN ADULT 0.3 MG/DL (0.2-1.0); TOTAL PROTEIN 5.1 GM/DL (6.4-8.2)
[2017-11-15 20:03] LABS: BLOOD UREA NITROGEN 13 MG/DL (7-18)
[2017-11-15 20:04] LABS: SODIUM (NA) 156 MEQ/L (136-145)
[2017-11-16] VITALS (28 sets, daily range): BP systolic 95–143; BP diastolic 49–63; PULSE 84–106; RESP 17–30; TEMP 97.8–100.9; O2SAT 91–100
[2017-11-16] MEDS: RESP: ALBUTEROL 2.5 MG/IPRATROPIUM 0.5 MG NEB (SCH) NEB ×7 (00:07→23:30)
[2017-11-16] MEDS: HYDROmorphone HCL PF 2 MG/ML VIAL IV PUSH PRN ×6 (00:34→19:50)
[2017-11-16] MEDS: CHLORHEXIDINE GLUCONATE 2 % 1 PACK (2 CLOTHS) TOP SCH ×2 (04:00→19:29)
[2017-11-16] MEDS: DEXTROSE 5% IN WATE 1000ML INJ 1,000 ML IV SCH ×3 (04:14→19:51)
[2017-11-16 04:56] LABS: MEAN PLATELET VOLUME 8.4 FL (7.0-11.0)
[2017-11-16] MEDS: METRONIDAZOLE 500 MG/100 ML ISONTONIC SOLN IV SCH ×3 (05:12→22:40)
[2017-11-16] MEDS: NYSTATIN 100,000 UNIT/GM CREAM 15 GM TOPICAL SCH ×3 (06:00→17:53)
[2017-11-16 06:13] LABS: ALBUMIN 1.1 GM/DL (3.4-5.0); ALKALINE PHOSPHATASE 44 U/L (45-117); ALT (GPT) 12 U/L (12-78); AST (GOT) 27 U/L (15-37); BICARBONATE 29.3 MEQ/L (21.0-32.0); BLOOD UREA NITROGEN 13 MG/DL (7-18); CALCIUM 7.6 MG/DL (8.5-10.1); CHLORIDE 117 MEQ/L (98-107); GLOMERULAR FILTRATION RATE 150 ML/MIN (>89); GLUCOSE,RANDOM 115 MG/DL (74-106); MAGNESIUM 2.1 MG/DL (1.5-2.5); SODIUM (NA) 153 MEQ/L (136-145); TOTAL BILIRUBIN ADULT 0.2 MG/DL (0.2-1.0); TOTAL PROTEIN 4.8 GM/DL (6.4-8.2)
[2017-11-16 06:18] LABS: WHITE BLOOD COUNT 25.4 TH/MM3 (4.0-11.0)
[2017-11-16] MEDS: VALPROATE INJ 500 MG in SODIUM CHLORIDE 0.9% INJ 100 ML IV SCH ×3 (06:18→22:39)
[2017-11-16 06:21] LABS: HEMATOCRIT 21.2 % (39.0-51.0); HEMOGLOBIN 6.7 GM/DL (13.0-17.0); MEAN CELL VOLUME 84.3 FL (80.0-100.0); MEAN CORPUSCULAR HEMOGLOBIN 26.7 PG (27.0-34.0); MEAN CORPUSCULAR HGB CONC 31.6 % (32.0-36.0); PLATELET COUNT 229 TH/MM3 (150-450); RED BLOOD COUNT 2.52 MIL/MM3 (4.50-5.90); RED CELL DISTRIBUTION WIDTH 18.8 % (11.6-17.2)
--- NOTE | 2017-11-16 07:02 | HHI.CCPN ---
Subjective Remarks/Hospital Course 41 year old male presents for evaluation of difficulty walking, generalized weakness that began earlier today. The patient arrives out in triage with a blood pressure systolic in the 70s. According to the patient's mother he has not been well since July. She reports that he was seen at another emergency department related to back and hip pain at that time. The patient at that time was also diagnosed with a fecal impaction and severe constipation. He has been since then seen by a die casting machine maintainer. He was placed on a bowel regimen to help with the constipation, however his mother reports that he's been having difficulty maintaining it. The patient since July has been incontinent of stool and intermittently incontinent of urine. The stool is brown in color. The patient has a diagnosis of schizoaffective disorder and is a poor historian. His mother reports that he has a history of being diagnosed with a nerve problem involving the right leg and since Tuesday he has had swelling of the right leg. He reports having abdominal pain down in bilateral lower quadrants of the abdomen. He reports having nausea. They deny him having any known recent fevers, worsening cough or congestion, neck pain, chest pain, shortness of breath, weakness of his upper extremities, numbness or tingling of his upper extremities. The patient does however report having weakness of bilateral lower extremities with pain/sharp pains that shoot down into the right leg. The CT scan obtained in the emergency department shows abnormal appearance of the soft tissue of the proximal thigh and the gluteal region with fluid and gas tracking between the rectus muscle in the anterior thigh muscle. The combination of fluid and gas suggest either an infectious or necrotic process. 11/09: Ongoing resuscitation from sepsis due to right thigh abscess, extends to gluteal region, possible bone involvement? Urine acceptable. 11/10: S/P debridement right thigh abscess and wound vac. Septic behavior. Continue ventilator support, back to OR tomorrow. 11/11: No events over the night. Patient remains intubated and sedated. No pressors. Tmax 101.5, I/O 1950/2100. No family at bedside. 11/12: Hb low yesterday evening, received 2 units PRBC. Decreasing sedation to better assess mental status. No pressors. Good urine output. Tmax 100.3. 11/13: Few rhonchi but lungs generally clear - will try to extubate. 11/14: Extubated 11/13 and breathing comfortably. Small left effusion. IV is D5W but sodium still elevated. DVT prophylaxis held for OR. 11/15: Worsening sepsis, WBC increased to 23,400. Wound cx from 11/09/17 also growing yeast. I will start micafungin 150 mg daily, first dose stat. Discussed with ID Dr. Upton- send blood cultures. Also sodium noted to be climbing today 160. Increased D5W to 200 ML per hour and check BMP 2 PM 11/16: Right thigh remains tense. Micafungin started for wound culture growing [place]. CT of the right lower extremity shows extensive fluid surrounding the quadriceps muscle as air within the collection suspicious for abscess. Case was discussed extensively with Dr. Campos and the surgical team yesterday. OR with general surgery, orto today. Receiving 2 units of PRBC Objective Vital Signs Date Time Temp Pulse Resp B/P (MAP) Pulse Ox O2 Delivery O2 Flow Rate FiO2 11/16/17 06:00 84 11/16/17 04:00 98.1 21 106/53 (70) 96 11/16/17 03:44 Nasal Cannula 3.00 11/14/17 07:37 50 Intake and Output 11/16/17 11/16/17 11/17/17 08:00 16:00 00:00 Intake Total 1640 ml Output Total 1050 ml Balance 590 ml Result Diagram: 11/16/17 0423 11/16/17 0530 Imaging Last 24 hours Impressions Lower Extremity Ultrasound 11/08/172011 Signed Impressions: Service Date/Time: Wednesday, November 08, 2017 20:41 - CONCLUSION: 1. Negative for deep venous thrombosis. There are mildly enlarged right inguinal lymph nodes. Bertrand Smalls MD Chest X-Ray 11/08/172011 Signed Impressions: Service Date/Time: Wednesday, November 08, 2017 21:10 - CONCLUSION: 1. Subsegmental airspace disease right lung base. Finding may represent a small bronchopneumonia. Bertrand Smalls MD Abdomen/Pelvis CT 11/08/172011 Signed Impressions: Service Date/Time: Wednesday, November 08, 2017 22:54 - CONCLUSION: 1. Abnormal appearance of the soft tissues of the proximal thigh and gluteal region with fluid and gas tracking between the rectus muscles and the anterior thigh muscles. No focal abnormal areas of enhancement. The combination of fluid and gas suggests either an infectious or necrotic process. 2. Nonobstructing small calcified stone mid pole left kidney and multiple left renal cysts. 3. Small bilateral pleural effusions. Jace Bird MD Objective Remarks General - middle age gentleman, ill appearing in moderate distress due to pain. MAXIMUM TEMPERATURE 100.9 HEENT - pupils are equal, reactive, sclerae are anicteric, neck is supple. CV - regular heart sounds, no murmurs Chest - scattered coarse breath sounds b/l, good air entry, no wheezes Abdomen soft, non-tender, non-distended, BS present Skin - see below Extremities - 2+ pitting edema of the right lower extremity, 1+ edema of the left lower extremity. Diffuse swelling and redness over the right thigh anteriorly extending from the hip to below right knee, wound vac over the right hip, whole right thigh tender to touch Neuro - pupils equal, reactive, follows commands, moves 4 limbs with 5/5. A/P Assessment and Plan ASSESSMENT: 1. Severe sepsis secondary thigh abscess/OM s/p I&D with wound vac placement ( due to mixed clara, rosalee) 2. Viridans strep and CoNS bacteremia 3. Sacral OM 4. Hyperchloremic hypernatremia 5. Schizoaffective disorder 6. Acute respiratory failure - now on minimal FiO2 requirements 7. Anemia requiring transfusion PLAN: 1. Added micafungin 150 mg daily for yeast in wound culture, follow up fungal blood cultures 2. Antibiotics per ID (Ceftriaxone IV, oral Flagyl) 3. CT of the right lower extremity concerning for abscess. Plan for OR with general surgery and ortho today 4. Transfused 2 units PRBC. 5. Free water replacement with half normal saline bolus, continue D5W at 200 ML per hour 6. FM O2. IS 7. Continue psych meds. Psychiatric consulted to assist with medication 8. On Depakote and Risperidone 9. DVT prophylaxis, GI prophylaxis 10. Tube feeds with free water, if fails swallow again Overall impression: Remains critically ill with worsening sepsis, right thigh with abscess formation white count increasing to 25,400, now with yeast in the wound culture. OR today. 2 units PRBC transfusion Free water increased for severe hypernatremia CCT 35 Discussed yesterday multiple times with general surgery and ID Maximus Zaldivar MD Nov 16, 2017 07:02
[2017-11-16] MEDS ORDERED: SODIUM CHLOR 0.45% 500 ML INJ 500 ML IV ONE (07:30)
[2017-11-16] MEDS: CHLORHEXIDINE 0.12% (ORAL KIT) 15 ML CUP MT SCH ×2 (07:33→19:28)
[2017-11-16] MEDS ORDERED: FUROSEMIDE 20 MG/2 ML VIAL IV PUSH SCH (07:45)
[2017-11-16 07:48] LABS: BANDS 27 % (0-6); CORRECTED NUCLEATED RBC 1 /100 WBC (0-0); LYMPHOCYTES 2 % (9-44); METAMYELOCYTES 1 % (0-1); MONOCYTES 3 % (0-8); MYELOCYTES 1 % (0-0); NEUTROPHIL # MANUAL DIFF 24.1 TH/MM3 (1.8-7.7); NUCLEATED RED BLOOD CELL 1 (0-0); POLYS (SEG NEUTROPHILS) 66 % (16-70)
[2017-11-16 07:49] LABS: TARGET CELLS 1+ (NORMAL)
[2017-11-16] MEDS: cefTRIAXone INJ 2,000 MG in SODIUM CHLORIDE 0.9% INJ 100 ML IV SCH (07:59)
[2017-11-16] MEDS: POTASSIUM CHLOR 20 MEQ PREMIX 100 ML IV SCH ×2 (08:27→10:38)
[2017-11-16] MEDS: FAMOTIDINE 20 MG/2 ML VIAL IV PUSH SCH ×2 (08:28→19:50)
[2017-11-16] MEDS: SODIUM CHLORIDE 0.9% FLUSH 10 ML FLUSH IV FLUSH SCH ×2 (08:28→19:51)
--- NOTE | 2017-11-16 08:38 | HHI.IDPN ---
Subjective Subjective Remarks is a 41 y/o CM with PMHx of Schizoaffective disorder on Haldol IM injections in bilateral buttocks. Patient reports getting these as outpatient by unknown doctor (different doctor each time per patient). Approx 1 month back after he received his last Haldol IM shot in right buttock patient noticed pain and swelling and decreased range of motion. Patient continued to receive Haldol shots in left buttock due to pain in right buttock. Patient reports his ability to move around has declined since last 1 week and he needs help with ADL phuong dressing himself due to significant pain on right lower extremity. Patient reports fevers chills and night sweats for the last 1 week prior to admission and significant worsening pain and swelling of his right lower extremity. Patient's past medical history is also significant for right dorsum of the foot marsh as a child as well as neuropathy. Per review of records it appears the patient's mother has reported that he hasn't been feeling well since July and has presented to another emergency department related to back and hip pain. The patient was diagnosed with fecal impaction and severe constipation was seen by service center coordinator. Patient reports that he was on a bowel regimen to help with her constipation and that has been a challenge to maintain continence. Patient has had incontinence of stool and intermittently incontinence of urine since July. With this background patient presents to the emergency department for evaluation of difficulty walking, generalized weakness, weight loss loss of appetite. Reportedly while in the triage area his blood pressure was in the 70s systolic. Patient also reported abdominal pain in the lower quadrants radiating to his bilateral lower extremity but more so on the right. Patient reported nausea decrease in appetite and loss of about 20 pound weight in the last 1 month. Patient denies any recent intravenous drug abuse. Patient does endorse to receiving intramuscular Haldol in bilateral buttocks. The last right buttock Haldol injection was approximately 1 month back. Patient reports having weakness of bilateral lower extremities more so on the right especially because of sharp shooting pains down his right leg. In the emergency department patient received a total of 4 L of IV fluids as a part of severe sepsis workup and management. Cultures drawn at admission are currently pending. A CT scan of the abdomen showed appearance of soft tissue mass of the proximal thigh and gluteal region with fluid and gas tracking down the rectus muscle into the anterior thigh muscle. This is concerning for infectious or necrotic process. At the time of my evaluation patient is in the intensive surgical care unit. He has received 4 L of IV fluids normal saline. He has good urine output. Currently awake alert oriented 3, on room air. Infectious disease consulted for evaluation and management of severe sepsis, right buttock abscess possible osteomyelitis. Overnight events reviewed. s/p removal of 1L purulent material from thigh area exploration per alfonso Mena. No fevers No rash 2 loose BMs. WBC at 37.7 Not on pressors. UO ok. Antibiotics Ceftriaxone IV Vanco IV Flagyl IV Micafungin IV Lines Line sites with no evidence of infection. Past Medical History Neuropathy involving the right leg h/o marsh right foot dorsum as a child. Schizoaffective disorder, Depressions Anxiety Past Surgical History None per patient. Allergies: Coded Allergies: diphenhydramine (Verified Adverse Reaction, Unknown, 11/08/17) Objective . Vital Signs Date Time Temp Pulse Resp B/P (MAP) Pulse Ox O2 Delivery O2 Flow Rate FiO2 11/16/17 07:08 98.4 89 27 104/53 95 11/16/17 06:00 84 11/16/17 04:00 98.1 86 21 106/53 (70) 96 11/16/17 04:00 86 11/16/17 03:44 98 Nasal Cannula 3.00 11/16/17 02:00 86 11/16/17 00:09 94 Nasal Cannula 3.00 11/16/17 00:00 94 11/16/17 00:00 100.9 94 17 143/63 (89) 100 11/15/17 22:00 84 11/15/17 20:14 100 Nasal Cannula 3.00 11/15/17 20:00 99.2 82 23 112/54 (73) 97 11/15/17 20:00 82 11/15/17 19:00 98 Nasal Cannula 2.00 11/15/17 18:09 19 11/15/17 18:00 83 11/15/17 16:00 86 11/15/17 16:00 99.9 86 32 117/58 (77) 99 11/15/17 14:00 86 11/15/17 12:00 99.9 86 28 118/56 (76) 100 11/15/17 12:00 86 11/15/17 10:00 87 . Laboratory Tests Test 11/15/17 02:49 11/16/17 05:30 White Blood Count 23.4 TH/MM3 25.4 TH/MM3 Red Blood Count 2.93 MIL/MM3 2.52 MIL/MM3 Hemoglobin 7.7 GM/DL 6.7 GM/DL Hematocrit 24.4 % 21.2 % Mean Corpuscular Volume 83.0 FL 84.3 FL Mean Corpuscular Hemoglobin 26.4 PG 26.7 PG Mean Corpuscular Hemoglobin Concent 31.8 % 31.6 % Red Cell Distribution Width 19.1 % 18.8 % Platelet Count 241 TH/MM3 229 TH/MM3 Mean Platelet Volume 8.4 FL 8.4 FL Neutrophils (%) (Auto) 88.3 % % Lymphocytes (%) (Auto) 5.6 % % Monocytes (%) (Auto) 5.9 % % Eosinophils (%) (Auto) 0.0 % % Basophils (%) (Auto) 0.2 % % Neutrophils # (Auto) 20.7 TH/MM3 TH/MM3 Lymphocytes # (Auto) 1.3 TH/MM3 TH/MM3 Monocytes # (Auto) 1.4 TH/MM3 TH/MM3 Eosinophils # (Auto) 0.0 TH/MM3 TH/MM3 Basophils # (Auto) 0.0 TH/MM3 TH/MM3 CBC Comment AUTO DIFF DIFF FINAL Differential Total Cells Counted 100 100 Neutrophils % (Manual) 52 % 66 % Band Neutrophils % 37 % 27 % Lymphocytes % 2 % 2 % Monocytes % 3 % 3 % Neutrophils # (Manual) 22.2 TH/MM3 24.1 TH/MM3 Metamyelocytes 1 % 1 % Myelocytes 5 % 1 % Nucleated Red Blood Cells 1 /100 WBC 1 /100 WBC Differential Comment FINAL DIFF MANUAL Platelet Estimate NORMAL NORMAL Platelet Morphology Comment ENLARGED NORMAL Target Cells 2+ 1+ Laboratory Tests Test 11/15/17 02:49 11/15/17 18:32 11/16/17 05:30 Blood Urea Nitrogen 13 MG/DL 13 MG/DL 13 MG/DL Creatinine 0.55 MG/DL 0.66 MG/DL 0.60 MG/DL Random Glucose 106 MG/DL 126 MG/DL 115 MG/DL Calcium Level 7.8 MG/DL 8.5 MG/DL 7.6 MG/DL Sodium Level 160 MEQ/L 156 MEQ/L 153 MEQ/L Potassium Level 3.8 MEQ/L 3.3 MEQ/L 3.4 MEQ/L Chloride Level 124 MEQ/L 120 MEQ/L 117 MEQ/L Carbon Dioxide Level 31.0 MEQ/L 31.5 MEQ/L 29.3 MEQ/L Anion Gap 5 MEQ/L 5 MEQ/L 7 MEQ/L Estimat Glomerular Filtration Rate 166 ML/MIN 134 ML/MIN 150 ML/MIN Total Protein 5.1 GM/DL 4.8 GM/DL Albumin 1.2 GM/DL 1.1 GM/DL Alkaline Phosphatase 49 U/L 44 U/L Aspartate Amino Transf (AST/SGOT) 28 U/L 27 U/L Alanine Aminotransferase (ALT/SGPT) 14 U/L 12 U/L Total Bilirubin 0.3 MG/DL 0.2 MG/DL Magnesium Level 2.1 MG/DL Microbiology Date/Time Source Procedure Growth Status 11/15/17 10:51 Blood Peripheral Blood Fungal Culture Pending Received 11/15/17 10:51 Blood Peripheral Blood Fungal Culture Pending Received 11/15/17 10:39 Blood Peripheral Aerobic Blood Culture Pending Received 11/15/17 10:39 Blood Peripheral Anaerobic Blood Culture Pending Received Imaging Last Impressions Chest X-Ray 11/09/17 0000 Signed Impressions: Service Date/Time: Thursday, November 09, 2017 16:23 - CONCLUSION: Minimal infiltrate left base new from comparison study. Rodrick Ch MD FACR Lower Extremity Ultrasound 11/08/172011 Signed Impressions: Service Date/Time: Wednesday, November 08, 2017 20:41 - CONCLUSION: 1. Negative for deep venous thrombosis. There are mildly enlarged right inguinal lymph nodes. Bertrand Smalls MD Abdomen/Pelvis CT 11/08/172011 Signed Impressions: Service Date/Time: Wednesday, November 08, 2017 22:54 - CONCLUSION: 1. Abnormal appearance of the soft tissues of the proximal thigh and gluteal region with fluid and gas tracking between the rectus muscles and the anterior thigh muscles. No focal abnormal areas of enhancement. The combination of fluid and gas suggests either an infectious or necrotic process. 2. Nonobstructing small calcified stone mid pole left kidney and multiple left renal cysts. 3. Small bilateral pleural effusions. Jace Bird MD Thoracic Spine MRI 11/08/17 0000 Signed Impressions: Service Date/Time: Wednesday, November 08, 2017 22:01 - CONCLUSION: 1. Small bilateral pleural effusions. 2. No signal abnormalities in the thoracic vertebral bodies and no evidence of focal disc disease. Jace Bird MD Lumbar Spine MRI 11/08/17 0000 Signed Impressions: Service Date/Time: Wednesday, November 08, 2017 22:01 - CONCLUSION: 1. No evidence of lumbar disc disease. 2. Soft tissue abnormality about the right gluteal region suggesting abscess with T2 prolongation and contrast enhancement ; this is incompletely included in the [id number] of the exam. 3. There is also abnormal signal within the marrow of the sacral and coccygeal marrow including contrast enhancement suggesting that the right thigh and gluteal abnormality may extend intraosseous, possibly osteomyelitis. Jace Bird MD Physical Exam GENERAL: Thin built, poorly nourished patient, in no apparent distress. SKIN: No rashes, ecchymoses or lesions. Cool and dry. HEAD: Atraumatic. Normocephalic. No temporal or scalp tenderness. EYES: Pupils equal round and reactive. Extraocular motions intact. No scleral icterus. No injection or drainage. ENT: NAD NECK: Trachea midline. Supple, nontender, no meningeal signs. CARDIOVASCULAR: HS audible. RESPIRATORY: Wheezing bilaterally. Basilar crackles. GASTROINTESTINAL: Abdomen soft, non-tender, nondistended. MUSCULOSKELETAL: The entire right lower extremity is significantly swollen compared to the left lower extremity. There is pitting edema noted at the thigh level. There is some skin lesions which appear like dry scab lesions on the thigh as well as in other parts of the body. There is some erythema induration and swelling as well as tenderness noted in the right thigh. Significant tenderness on right thigh. Wound VAC is in place. Pitting edema noted. NEUROLOGICAL: Opens eyes spontaneously. Winces on touching right thigh. Psych cooperative IV line sites with no e.o infection. Assessment & Plan Remarks Severe sepsis present on admission. Staph coag neg bacteremia: 1 out of 4 bottles likely contaminant. E.coli and Strep, mixed anaerobes (beta lactamase positive) right thigh abscess/ osteomyelitis Right thigh abscess possible myositis, osteomyelitis. Schizoaffective disorder receives IM Haldol injections in the buttocks. Lower extremity neuropathy. Weight loss, loss of appetite Recommendations: Continue Ceftriaxone IV Continue IV flagyl Continue Vanco IV (target 15-20 for osteomyelitis) Continue Micafungin IV( will deescalate based on repeat intra op cultures) If overnight any change in clinical condition s/o sepsis/worsening infection, ok to broaden coverage to change to Cefepime IV and DC Ceftriaxone. Follow cultures Follow clinically. d/w RN d/w María Guillermo MD Nov 16, 2017 08:38
[2017-11-16] MEDS: hydrOXYzine HCL 50 MG TAB PO SCH ×2 (09:00→19:52)
[2017-11-16] MEDS: risperiDONE ODT 3 MG TAB PO SCH ×2 (09:00→19:52)
[2017-11-16] MEDS ORDERED: GENTAMICIN SULFATE 80 MG/2 ML VIAL ONE (11:29)
[2017-11-16] MEDS: VANCOMYCIN INJ 1,500 MG in SODIUM CHLORID 0.9% 500 ML INJ 500 ML IV SCH (11:38)
[2017-11-16] MEDS ORDERED: VANCOMYCIN HCL 1000 MG VIAL ONE (11:40)
[2017-11-16] MEDS ORDERED: TOBRAMYCIN 1200 MG VIAL (for ortho/sterile core) OTHER ONE (11:40)
[2017-11-16] MEDS ORDERED: SUGAMMADEX SODIUM 200 MG/2 ML VIAL IV PUSH ONE (11:47)
[2017-11-16] MEDS ORDERED: PROPOFOL 200 MG/20 ML AMP IV ONE (12:00)
[2017-11-16] MEDS ORDERED: ONDANSETRON HCL 4 MG/2 ML VIAL IV ONE (12:00)
[2017-11-16] MEDS ORDERED: PHENYLEPH/NS 1000 MCG/10 ML SYR IV ONE (12:00)
[2017-11-16] MEDS ORDERED: SUCCINYLCHOLINE CHLORIDE 200 MG/10 ML VIAL IV ONE (12:00)
[2017-11-16] MEDS ORDERED: LIDOCAINE HCL 1% PF 5 ML SYRINGE OTHER ONE (12:00)
[2017-11-16] MEDS ORDERED: ROCURONIUM INJ 50 MG/5 ML SYRINGE IV PUSH ONE (12:00)
[2017-11-16] MEDS ORDERED: LACTATED RINGER'S 1000 ML INJ 1,000 ML IV ONE (12:00)
[2017-11-16] MEDS ORDERED: ePHEDrine/NS 25 MG/5 ML SYRINGE IV ONE (12:00)
[2017-11-16] MEDS ORDERED: MIDAZOLAM HCL 2 MG/2 ML VIAL ONE (12:39)
[2017-11-16] MEDS ORDERED: *RESP: ALBUTEROL 2.5 MG/3 ML NEB (PRN) PERIprocedural Use ONLY NEB ONE (12:41)
[2017-11-16] MEDS ORDERED: *morphine SULFATE 4 MG/ML PERIprocedure ONLY ONE (13:30)
[2017-11-16] MEDS: MICAFUNGIN INJ 150 MG in SODIUM CHLORIDE 0.9% INJ 100 ML IV SCH (14:21)
[2017-11-16 17:16] LABS: AUTOMATED NEUTROPHIL # 29.5 TH/MM3 (1.8-7.7); BASOPHIL # 0.1 TH/MM3 (0-0.2); BASOPHIL % 0.2 % (0.0-2.0); HEMATOCRIT 21.1 % (39.0-51.0); LYMPH % 2.3 % (9.0-44.0); LYMPHOCYTE # 0.7 TH/MM3 (1.0-4.8); MEAN CELL VOLUME 86.2 FL (80.0-100.0); MEAN CORPUSCULAR HEMOGLOBIN 27.1 PG (27.0-34.0); MEAN CORPUSCULAR HGB CONC 31.4 % (32.0-36.0); MEAN PLATELET VOLUME 8.6 FL (7.0-11.0); MONO % 3.2 % (0.0-8.0); NEUT % 94.3 % (16.0-70.0); PLATELET COUNT 167 TH/MM3 (150-450); RED BLOOD COUNT 2.45 MIL/MM3 (4.50-5.90); RED CELL DISTRIBUTION WIDTH 17.5 % (11.6-17.2); WHITE BLOOD COUNT 31.3 TH/MM3 (4.0-11.0)
[2017-11-16 17:26] LABS: HEMOGLOBIN 6.6 GM/DL (13.0-17.0)
[2017-11-16 19:39] LABS: BANDS 36 % (0-6); LYMPHOCYTES 1 % (9-44); METAMYELOCYTES 2 % (0-1); MONOCYTES 1 % (0-8); MYELOCYTES 3 % (0-0); NEUTROPHIL # MANUAL DIFF 30.7 TH/MM3 (1.8-7.7); POLYS (SEG NEUTROPHILS) 57 % (16-70)
[2017-11-16 19:41] LABS: TARGET CELLS 1+ (NORMAL); TOXIC GRANULATION 1+ (NORMAL)
[2017-11-17] VITALS (16 sets, daily range): BP systolic 103–114; BP diastolic 55–74; PULSE 89–102; RESP 20–36; TEMP 98.3–99.2; O2SAT 91–97
[2017-11-17] MEDS: DEXTROSE 5% IN WATE 1000ML INJ 1,000 ML IV SCH ×2 (01:45→20:41)
[2017-11-17] MEDS: RESP: ALBUTEROL 2.5 MG/IPRATROPIUM 0.5 MG NEB (SCH) NEB ×6 (03:20→23:48)
[2017-11-17 03:31] LABS: HEMATOCRIT 31.3 % (39.0-51.0); HEMOGLOBIN 10.3 GM/DL (13.0-17.0); MEAN CELL VOLUME 83.7 FL (80.0-100.0); MEAN CORPUSCULAR HEMOGLOBIN 27.4 PG (27.0-34.0); MEAN CORPUSCULAR HGB CONC 32.8 % (32.0-36.0); MEAN PLATELET VOLUME 8.5 FL (7.0-11.0); PLATELET COUNT 195 TH/MM3 (150-450); RED BLOOD COUNT 3.74 MIL/MM3 (4.50-5.90); RED CELL DISTRIBUTION WIDTH 17.6 % (11.6-17.2); WHITE BLOOD COUNT 37.7 TH/MM3 (4.0-11.0)
[2017-11-17 03:45] LABS: ALBUMIN 1.1 GM/DL (3.4-5.0); ALT (GPT) 11 U/L (12-78); AST (GOT) 24 U/L (15-37); BICARBONATE 28.1 MEQ/L (21.0-32.0); BLOOD UREA NITROGEN 14 MG/DL (7-18); CALCIUM 7.5 MG/DL (8.5-10.1); CHLORIDE 113 MEQ/L (98-107); CREATININE 0.55 MG/DL (0.60-1.30); GLOMERULAR FILTRATION RATE 166 ML/MIN (>89); GLUCOSE,RANDOM 99 MG/DL (74-106); MAGNESIUM 1.9 MG/DL (1.5-2.5); SODIUM (NA) 148 MEQ/L (136-145)
[2017-11-17 03:47] LABS: ALKALINE PHOSPHATASE 47 U/L (45-117); TOTAL BILIRUBIN ADULT 0.3 MG/DL (0.2-1.0); TOTAL PROTEIN 4.8 GM/DL (6.4-8.2)
[2017-11-17] MEDS: HYDROmorphone HCL PF 2 MG/ML VIAL IV PUSH PRN ×3 (04:29→18:36)
[2017-11-17 05:11] LABS: BANDS 35 % (0-6); LYMPHOCYTES 2 % (9-44); METAMYELOCYTES 2 % (0-1); MONOCYTES 2 % (0-8); NEUTROPHIL # MANUAL DIFF 36.2 TH/MM3 (1.8-7.7); POLYS (SEG NEUTROPHILS) 59 % (16-70)
[2017-11-17 05:12] LABS: TOXIC VACUOLATION PRESENT (NONE SEEN)
[2017-11-17 05:14] LABS: TARGET CELLS 1+ (NORMAL)
[2017-11-17] MEDS: RESP: ALBUTEROL 2.5 MG/IPRATROPIUM 0.5 MG NEB (PRN) INH (05:54)
[2017-11-17] MEDS: NYSTATIN 100,000 UNIT/GM CREAM 15 GM TOPICAL SCH ×4 (06:00→18:00)
[2017-11-17] MEDS: VALPROATE INJ 500 MG in SODIUM CHLORIDE 0.9% INJ 100 ML IV SCH ×3 (06:12→20:37)
[2017-11-17] MEDS: METRONIDAZOLE 500 MG/100 ML ISONTONIC SOLN IV SCH ×3 (06:12→20:37)
--- NOTE | 2017-11-17 07:01 | PD.ORT.PN ---
Subjective Subjective Remarks POD 1 s/p I&D right thigh with vac placement doing well. pain controlled. Objective Vitals Vital Signs Date Time Temp Pulse Resp B/P (MAP) Pulse Ox O2 Delivery O2 Flow Rate FiO2 11/17/17 06:00 92 11/17/17 04:00 98.9 90 25 111/63 (79) 92 11/17/17 04:00 90 11/17/17 03:24 96 Nasal Cannula 4.00 11/17/17 02:00 92 11/17/17 00:00 91 11/17/17 00:00 98.7 92 22 106/55 (72) 97 11/16/17 23:33 96 Nasal Cannula 4.00 11/16/17 22:37 98.8 86 21 101/57 (72) 100 11/16/17 22:00 95 11/16/17 20:55 95 Nasal Cannula 4.00 11/16/17 20:31 98.7 91 19 102/59 (73) 92 11/16/17 20:20 28 11/16/17 20:18 91 24 107/56 (73) 97 11/16/17 20:08 97.8 90 21 101/59 (73) 93 11/16/17 20:00 101 11/16/17 19:00 96 Nasal Cannula 2.00 11/16/17 18:40 98.4 102 25 103/58 91 11/16/17 18:25 98.5 103 26 100/55 93 11/16/17 18:00 106 11/16/17 16:37 93 Nasal Cannula 4.00 11/16/17 16:00 98.2 103 23 108/59 (75) 94 11/16/17 16:00 102 11/16/17 14:15 106 11/16/17 14:15 98.2 98 27 99/54 (69) 94 11/16/17 13:30 95 22 91/53 (66) 94 Nasal Cannula 4 11/16/17 13:15 97.2 96 22 104/59 (74) 96 Nasal Cannula 4 11/16/17 13:00 96 24 105/53 (70) 92 Aerosol Mask 11/16/17 12:45 95 25 110/56 (74) 93 Aerosol Mask 11/16/17 12:30 96 26 107/56 (73) 97 Simple Mask 6 11/16/17 12:27 97.8 97 26 111/55 (73) 95 Simple Mask 6 11/16/17 10:15 95 Nasal Cannula 2 11/16/17 10:15 97.6 86 16 97/52 (67) 94 11/16/17 10:00 85 11/16/17 09:30 98.3 84 26 96/53 94 11/16/17 09:15 98.3 84 24 95/49 94 11/16/17 08:44 96 Nasal Cannula 2.00 11/16/17 08:30 98.2 86 29 103/53 99 11/16/17 08:00 88 11/16/17 08:00 98.2 86 30 103/53 (70) 97 11/16/17 07:23 98.4 88 30 102/51 98 11/16/17 07:08 98.4 89 27 104/53 95 11/16/17 07:00 95 Nasal Cannula 3.00 I/O 11/16/17 11/16/17 11/16/17 11/17/17 11/17/17 11/17/17 07:00 15:00 23:00 07:00 15:00 23:00 Intake Total 1640 ml 3500 ml 2355 ml 240 ml Output Total 1050 ml 1475 ml 950 ml 2200 ml Balance 590 ml 2025 ml 1405 ml -1960 ml Intake Oral 240 ml 240 ml 240 ml IV Total 1400 ml 700 ml 805 ml Packed Cells 800 ml 800 ml Blood Product IV Normal Saline Flush 200 ml 510 ml Other 1800 ml Output Urine Total 1050 ml 1425 ml 400 ml 1100 ml Drainage Total 0 ml 550 ml 1100 ml Estimated Blood Loss 50 ml # Bowel Movements 2 2 Result Diagram: 11/17/1731611/17/17316 Objective Remarks RLE: +vac. good seal. good cap refill distally Assessment & Plan Assessment and Plan 1) Right Leg Infection s/p I&D with vac placement - POD 1 -NPO after MN -sign consents -vac settings: 125mmHg, low, 10min soak at 30mL, 2hr suction time -plan for repeat I&D tomorrow with Gigi Amaral/First Laverne BOSS Nov 17, 2017 07:01
--- NOTE | 2017-11-17 07:11 | HHI.CCPN ---
Subjective Remarks/Hospital Course 41 year old male presents for evaluation of difficulty walking, generalized weakness that began earlier today. The patient arrives out in triage with a blood pressure systolic in the 70s. According to the patient's mother he has not been well since July. She reports that he was seen at another emergency department related to back and hip pain at that time. The patient at that time was also diagnosed with a fecal impaction and severe constipation. He has been since then seen by a manufacturing engineer automotive. He was placed on a bowel regimen to help with the constipation, however his mother reports that he's been having difficulty maintaining it. The patient since July has been incontinent of stool and intermittently incontinent of urine. The stool is brown in color. The patient has a diagnosis of schizoaffective disorder and is a poor historian. His mother reports that he has a history of being diagnosed with a nerve problem involving the right leg and since Tuesday he has had swelling of the right leg. He reports having abdominal pain down in bilateral lower quadrants of the abdomen. He reports having nausea. They deny him having any known recent fevers, worsening cough or congestion, neck pain, chest pain, shortness of breath, weakness of his upper extremities, numbness or tingling of his upper extremities. The patient does however report having weakness of bilateral lower extremities with pain/sharp pains that shoot down into the right leg. The CT scan obtained in the emergency department shows abnormal appearance of the soft tissue of the proximal thigh and the gluteal region with fluid and gas tracking between the rectus muscle in the anterior thigh muscle. The combination of fluid and gas suggest either an infectious or necrotic process. 11/09: Ongoing resuscitation from sepsis due to right thigh abscess, extends to gluteal region, possible bone involvement? Urine acceptable. 11/10: S/P debridement right thigh abscess and wound vac. Septic behavior. Continue ventilator support, back to OR tomorrow. 11/11: No events over the night. Patient remains intubated and sedated. No pressors. Tmax 101.5, I/O 1950/2100. No family at bedside. 11/12: Hb low yesterday evening, received 2 units PRBC. Decreasing sedation to better assess mental status. No pressors. Good urine output. Tmax 100.3. 11/13: Few rhonchi but lungs generally clear - will try to extubate. 11/14: Extubated 11/13 and breathing comfortably. Small left effusion. IV is D5W but sodium still elevated. DVT prophylaxis held for OR. 11/15: Worsening sepsis, WBC increased to 23,400. Wound cx from 11/09/17 also growing yeast. I will start micafungin 150 mg daily, first dose stat. Discussed with ID Dr. Upton- send blood cultures. Also sodium noted to be climbing today 160. Increased D5W to 200 ML per hour and check BMP 2 PM 11/16: Right thigh remains tense. Micafungin started for wound culture growing [place]e. CT of the right lower extremity shows extensive fluid surrounding the quadriceps muscle as air within the collection suspicious for abscess. Case was discussed extensively with Dr. Campos and the surgical team yesterday. OR with general surgery, ortho today. Receiving 2 units of PRBC. 11/17: Continuing septic picture. Hemodynamics stable. Plan for wound exploration by Orthopedics tomorrow. Continue to push nutrition. Objective Vital Signs Date Time Temp Pulse Resp B/P (MAP) Pulse Ox O2 Delivery O2 Flow Rate FiO2 11/17/17 06:00 92 11/17/17 04:00 98.9 25 111/63 (79) 92 11/17/17 03:24 Nasal Cannula 4.00 11/14/17 07:37 50 Intake and Output 11/17/17 11/17/17 11/18/17 08:00 16:00 00:00 Intake Total 240 ml Output Total 2200 ml Balance -1960 ml Result Diagram: 11/17/177 11/17/17 0317 Imaging Last 24 hours Impressions Lower Extremity Ultrasound 11/08/172011 Signed Impressions: Service Date/Time: Wednesday, November 08, 2017 20:41 - CONCLUSION: 1. Negative for deep venous thrombosis. There are mildly enlarged right inguinal lymph nodes. Bertrand Smalls MD Chest X-Ray 11/08/172011 Signed Impressions: Service Date/Time: Wednesday, November 08, 2017 21:10 - CONCLUSION: 1. Subsegmental airspace disease right lung base. Finding may represent a small bronchopneumonia. Bertrand Smalls MD Abdomen/Pelvis CT 11/08/172011 Signed Impressions: Service Date/Time: Wednesday, November 08, 2017 22:54 - CONCLUSION: 1. Abnormal appearance of the soft tissues of the proximal thigh and gluteal region with fluid and gas tracking between the rectus muscles and the anterior thigh muscles. No focal abnormal areas of enhancement. The combination of fluid and gas suggests either an infectious or necrotic process. 2. Nonobstructing small calcified stone mid pole left kidney and multiple left renal cysts. 3. Small bilateral pleural effusions. Jace Bird MD Objective Remarks General - middle age gentleman, ill appearing in moderate distress due to pain. HEENT - pupils are equal, reactive, sclerae are anicteric, neck is supple, airway widely patent. CV - regular heart sounds, no murmurs Chest - scattered coarse breath sounds b/l, good air entry, no wheezes Abdomen soft, non-tender, non-distended, BS present Extremities - 2+ pitting edema of the right lower extremity, 1+ edema of the left lower extremity. Diffuse swelling and redness over the right thigh anteriorly extending from the hip to below right knee, wound vac over the right hip, whole right thigh tender to touch Neuro - pupils equal, reactive, follows commands, moves 4 limbs with 5/5. Conversant but a little confused. A/P Assessment and Plan ASSESSMENT: 1. Severe sepsis secondary thigh abscess/OM s/p I&D with wound vac placement ( due to mixed clara, rosalee) 2. Viridans strep and CoNS bacteremia 3. Sacral OM 4. Hyperchloremic hypernatremia 5. Schizoaffective disorder 6. Acute respiratory failure - now on minimal FiO2 requirements 7. Anemia requiring transfusion PLAN: 1. Continue micafungin 150 mg daily for yeast in wound culture, follow up fungal blood cultures, adjust per ID service. 2. Antibiotics per ID (Ceftriaxone IV, oral Flagyl) 3. CT of the right lower extremity concerning for abscess. Plan for OR with general surgery and ortho. 4. Transfused 2 units PRBC. 5. Free water replacement with half normal saline bolus, continue D5W at 75 ML per hour 6. FM O2. IS 7. Continue psych meds. Psychiatric consulted to assist with medication 8. On Depakote and Risperidone 9. DVT prophylaxis, GI prophylaxis 10. Tube feeds with free water, if fails swallow again Overall impression: Remains critically ill with worsening sepsis, right thigh with abscess formation white count increasing to 27,000, now with yeast in the wound culture. Free water increased for severe hypernatremia. Will try to supplement nutrition. Tariq Garcia MD Nov 17, 2017 07:11
--- NOTE | 2017-11-17 07:31 | MP ---
cc: [facility] DATE OF SURGERY 11/16/2017 PREOPERATIVE DIAGNOSIS Right pelvic and thigh infections. POSTOPERATIVE DIAGNOSIS Right pelvic and thigh infections. SURGEONS MD Gualberto Worrell MD ROCK CRUSHER OPERATOR Gigi Rodríguez PA-C PROCEDURE 1. Irrigation and debridement of pelvic infection and abscess. 2. Irrigation and debridement of right thigh abscess. 3. Right knee arthrotomy with irrigation and debridement. SPECIMENS Cultures. DETAILS OF PROCEDURE Bertrand is a 41-year-old male who initially presented to the [facility] with evidence of septic shock. The patient was found to have a pelvic infection. This was treated with irrigation and debridement by Dr. Gualberto Campos. The patient did have significant improvement, was noted to have increasing right leg and thigh pain. Subsequent CT scan of the thigh revealed significant abscess in the right thigh. Informed consent was confirmed preoperatively and the operative site was marked. He was brought to the operating room. He was given IV sedation and general anesthesia. He was placed in lateral decubitus position. The right leg and pelvic region were prepped with alcohol, followed by Hibiclens and draped in the usual sterile fashion. The procedure began with a 6-inch incision over the distal lateral thigh. Subcutaneous tissue was dissected with electrocautery Bovie. The iliotibial band was opened. A large volume of foul-smelling purulent fluid was identified. This was obtained for culture. The incision was extended proximally. The infection tracked all the way up to the hip. The incision was extended all the way up to the hip and buttock area and connected with the previous incision. The entire right thigh, hip and posterior pelvis were exposed through this along the incision. At this point attention was turned to the pelvis. The wound and infection tracked up into the sacrum. The skin, subcutaneous tissue, fascia and bone were sharply debrided. Curettes were used to debride around bone. Soft tissue and muscle were debrided sharply with rongeurs. The thigh was fully explored. There was significant infection along the fascial planes of the thigh and quadriceps tendon. A large portion of the iliotibial band was excised. Small areas of muscle were also excised. Curettes, rongeurs and scalpel were used to debride necrotic tissue. At this point the knee joint was also opened. Arthrotomy was performed from the lateral incision. There was some thick fluid in the knee joint. The knee joint was thoroughly irrigated as well. After thorough debridement of all infected tissue, the wound was thoroughly irrigated with pulsatile lavage. 6 liters of sterile saline were used to irrigate the wound. At this was point the wound appeared to be relatively clean. Attention was turned to VAC dressing. An extra-large VAC dressing was cut. VAC dressings were placed into each of the fascial planes. The VAC dressing was now cut to fit the remaining wound. The VAC dressing was stapled into place. A Veraflo VAC dressing was utilized to allow for infusion of antibiotics with saline. VAC dressing was sealed appropriately. The patient was transferred to the recovery room in stable condition. Needle and sponge counts were correct. A mid-level provider in my office, nurse practitioner or PA, may see this patient on a follow-up basis and continue to implement the objective of this plan including: Starting or adjusting medications, injections of muscle, tendon, bursa or joints, cast application, orthotic or brace application, physical therapy, further radiographic studies including x-ray, MRI, CT, ultrasounds or bone scan, vascular studies, neurologic studies, or other specialist consultations, and proceeding with surgical management as appropriate. MD CITLALLI Barksdale/FAUSTO /12:03 PM /7:07 AM
[2017-11-17] MEDS: CHLORHEXIDINE 0.12% (ORAL KIT) 15 ML CUP MT SCH ×2 (08:00→20:00)
[2017-11-17] MEDS: cefTRIAXone INJ 2,000 MG in SODIUM CHLORIDE 0.9% INJ 100 ML IV SCH (08:12)
[2017-11-17] MEDS: risperiDONE ODT 3 MG TAB PO SCH ×2 (08:13→20:36)
[2017-11-17] MEDS: FAMOTIDINE 20 MG/2 ML VIAL IV PUSH SCH ×2 (08:13→20:36)
[2017-11-17] MEDS: hydrOXYzine HCL 50 MG TAB PO SCH ×2 (08:13→20:36)
[2017-11-17] MEDS: MICAFUNGIN INJ 150 MG in SODIUM CHLORIDE 0.9% INJ 100 ML IV SCH (08:13)
--- NOTE | 2017-11-17 08:30 | MP ---
cc: SUSAN CAMPOS M.D., [place] DATE OF SURGERY 11/16/2017 PREOPERATIVE DIAGNOSIS Hip abscess with extension into the femoral anterolateral lower extremity. POSTOPERATIVE DIAGNOSIS Hip abscess with extension into the femoral anterolateral lower extremity. PROCEDURE Incision and drainage, irrigation and debridement of complex lower extremity abscess with removal of subcutaneous tissue, fascia and muscle, with application of Vac device. SURGEON Dr. Campos ORTHOPEDIC SURGEON Dr. Reynaldo Dan ANESTHESIA General INDICATION This is an unfortunate gentleman who had a hip abscess in the gluteal region that was drained. He seemed to progress and then developed more lower extremity pain. CT revealed extension of the abscess in the femoral region. For this reason, an orthopedic consultation was obtained with Dr. Reynaldo Dan and I did a combined procedure to decompress and take care of this complex infection. PROCEDURE The patient taken to the operating room, placed in a slight left lateral decubitus position. Dr. Dan and I worked in conjunction. The patient was prepped with Betadine and alcohol first and then Betadine and prepped and draped out. The Vac had been removed with finger dissection. We are able to place it digitized posteriorly and the abscess has returned that had been previously drained a day ago looking good, but now he has more fluid and purulent material more inferiorly. He has a fair amount of purulent drainage. A lateral incision was made from the initial incision all the way down to just above the knee joint. We entered the fascial space and the underlying fascia. Some of the muscle is necrotic which is sharply debrided, bluntly debrided. The wound and infection tracked up into the sacrum. The skin, subcutaneous tissue, fascia and bone were sharply debrided. Curettes were used debrided around bone. Soft tissue and muscle were debrided sharply with rongeurs. The thigh was fully explored. There was significant infection along the fascial planes of the anterior, lateral and medial thigh and quadriceps tendon. Small areas of muscle were also excised. Curettes, rongeurs and scalpel were used to debride necrotic tissue. A large portion of the iliotibial band was excised. The pulse lavage was used as well. We had digitized multiple loculations all the way down to the knee joint. The purulent material was all evacuated. Cultures were taken. After irrigating and debriding and draining the abscess after our large incision, we debrided sharply and bluntly to normal-appearing tissue and a Vac device is then applied in the typical fashion. We used the irrigating Vac to promote further cleansing this complex wound. See Dr. Dan's dictation and the combined surgical approach that required both orthopedic and general surgery expertise. The patient was then brought to the PACU after the Vac was placed. MD LAN Nguyen/REYNA /2:45 PM /8:15 AM JOI
[2017-11-17] MEDS: SODIUM CHLORIDE 0.9% FLUSH 10 ML FLUSH IV FLUSH SCH ×2 (08:57→20:37)
[2017-11-17] MEDS: VANCOMYCIN INJ 1,500 MG in SODIUM CHLORID 0.9% 500 ML INJ 500 ML IV SCH ×3 (12:50)
--- NOTE | 2017-11-17 13:39 | HHI.PR ---
cc: Bertrand Campos MD Subjective Subjective Notes DAILY PROGRESS NOTE FOR SURGICAL ATTENDING, DR. BERTRAND CAMPOS "I'm trying to eat breakfast now." Objective Vitals/I&O Vital Signs Date Time Temp Pulse Resp B/P (MAP) Pulse Ox O2 Delivery O2 Flow Rate FiO2 11/17/17 11:36 92 Nasal Cannula 6.00 11/17/17 10:00 101 11/17/17 08:00 98.4 24 110/56 (74) 11/14/17 07:37 50 Labs Laboratory Tests Test 11/16/17 16:35 11/17/17 03:17 White Blood Count 31.3 37.7 Red Blood Count 2.45 3.74 Hemoglobin 6.6 10.3 Hematocrit 21.1 31.3 Mean Corpuscular Volume 86.2 83.7 Mean Corpuscular Hemoglobin 27.1 27.4 Mean Corpuscular Hemoglobin Concent 31.4 32.8 Red Cell Distribution Width 17.5 17.6 Platelet Count 167 195 Mean Platelet Volume 8.6 8.5 Neutrophils (%) (Auto) 94.3 Lymphocytes (%) (Auto) 2.3 Monocytes (%) (Auto) 3.2 Eosinophils (%) (Auto) 0.0 Basophils (%) (Auto) 0.2 Neutrophils # (Auto) 29.5 Lymphocytes # (Auto) 0.7 Monocytes # (Auto) 1.0 Eosinophils # (Auto) 0.0 Basophils # (Auto) 0.1 CBC Comment AUTO DIFF AUTO DIFF Differential Total Cells Counted 100 100 Neutrophils % (Manual) 57 59 Band Neutrophils % 36 35 Lymphocytes % 1 2 Monocytes % 1 2 Neutrophils # (Manual) 30.7 36.2 Metamyelocytes 2 2 Myelocytes 3 Differential Comment FINAL DIFF MANUAL FINAL DIFF MANUAL Toxic Granulation 1+ Platelet Estimate NORMAL NORMAL Platelet Morphology Comment NORMAL NORMAL Target Cells 1+ 1+ Toxic Vacuolation PRESENT Basophilic Stippling FAINT Blood Urea Nitrogen 14 Creatinine 0.55 Random Glucose 99 Total Protein 4.8 Albumin 1.1 Calcium Level 7.5 Magnesium Level 1.9 Alkaline Phosphatase 47 Aspartate Amino Transf (AST/SGOT) 24 Alanine Aminotransferase (ALT/SGPT) 11 Total Bilirubin 0.3 Sodium Level 148 Potassium Level 3.9 Chloride Level 113 Carbon Dioxide Level 28.1 Anion Gap 7 Estimat Glomerular Filtration Rate 166 Date/Time Source Procedure Growth Status 11/15/17 10:51 Blood Peripheral Blood Fungal Culture Pending Received 11/15/17 10:51 Blood Peripheral Blood Fungal Culture Pending Received 11/16/17 11:57 Fluid Other Fungal Smear - Final NO FUNGAL ELEMENTS SEEN. Resulted 11/16/17 11:57 Fluid Other Fungal Culture Pending Resulted 11/08/17 21:45 Urine Catheterized Urine Urine Culture - Final NO GROWTH IN 48 HOURS. Complete 11/09/17 15:20 Wound Hip Fungal Smear - Final NO FUNGAL ELEMENTS SEEN. Resulted 11/09/17 15:20 Fungal Culture - Preliminary Paz Albicans Resulted Radiology Last 72 hours Impressions Lower Extremity CT 11/15/17 0000 Signed Impressions: Service Date/Time: Wednesday, November 15, 2017 13:22 - CONCLUSION: Extensive fluid surrounding the quadriceps musculature of the right thigh as well as air within the collection anteriorly and laterally which raises the possibility of abscess/infection. Fluid is also noted extending into the region of the gluteus muscles on the right. Diffuse subcutaneous edema the right thigh is noted. Compartment syndrome should be ruled out. Jez Chowdhury MD Abdomen/Pelvis CT 11/15/17 0000 Signed Impressions: Service Date/Time: Wednesday, November 15, 2017 13:22 - CONCLUSION: The abnormal soft tissue mass now has compartmentalized fluid collections and absence of air in the right soft tissues of thigh and gluteal region. This probably represents improving inflammatory or infectious process such as abscess. Small bilateral pleural effusions persist with a new consolidation with air bronchogram in the left lower lobe. Ascitic fluid suggested in the pelvis Silvio Laguerre MD Chest X-Ray 11/14/17 0600 Signed Impressions: Service Date/Time: Tuesday, November 14, 2017 04:22 - CONCLUSION: 1. Left basilar airspace disease similar to November 12. Bertrand Smalls MD Last 72 hours Impressions Abdomen/Pelvis CT 11/15/17 0000 Signed Impressions: Service Date/Time: Wednesday, November 15, 2017 13:22 - CONCLUSION: The abnormal soft tissue mass now has compartmentalized fluid collections and absence of air in the right soft tissues of thigh and gluteal region. This probably represents improving inflammatory or infectious process such as abscess. Small bilateral pleural effusions persist with a new consolidation with air bronchogram in the left lower lobe. Ascitic fluid suggested in the pelvis Silvio Laguerre MD Chest X-Ray 11/14/17 0600 Signed Impressions: Service Date/Time: Tuesday, November 14, 2017 04:22 - CONCLUSION: 1. Left basilar airspace disease similar to November 12. Bertrand Smalls MD Last Impressions Chest X-Ray 11/09/17 0000 Signed Impressions: Service Date/Time: Thursday, November 09, 2017 16:23 - CONCLUSION: Minimal infiltrate left base new from comparison study. Rodrick Ch MD FACR Lower Extremity Ultrasound 11/08/172011 Signed Impressions: Service Date/Time: Wednesday, November 08, 2017 20:41 - CONCLUSION: 1. Negative for deep venous thrombosis. There are mildly enlarged right inguinal lymph nodes. Bertrand Smalls MD Abdomen/Pelvis CT 11/08/172011 Signed Impressions: Service Date/Time: Wednesday, November 08, 2017 22:54 - CONCLUSION: 1. Abnormal appearance of the soft tissues of the proximal thigh and gluteal region with fluid and gas tracking between the rectus muscles and the anterior thigh muscles. No focal abnormal areas of enhancement. The combination of fluid and gas suggests either an infectious or necrotic process. 2. Nonobstructing small calcified stone mid pole left kidney and multiple left renal cysts. 3. Small bilateral pleural effusions. Jace Bird MD Thoracic Spine MRI 11/08/17 0000 Signed Impressions: Service Date/Time: Wednesday, November 08, 2017 22:01 - CONCLUSION: 1. Small bilateral pleural effusions. 2. No signal abnormalities in the thoracic vertebral bodies and no evidence of focal disc disease. Jace Bird MD Lumbar Spine MRI 11/08/17 0000 Signed Impressions: Service Date/Time: Wednesday, November 08, 2017 22:01 - CONCLUSION: 1. No evidence of lumbar disc disease. 2. Soft tissue abnormality about the right gluteal region suggesting abscess with T2 prolongation and contrast enhancement ; this is incompletely included in the [id number] of the exam. 3. There is also abnormal signal within the marrow of the sacral and coccygeal marrow including contrast enhancement suggesting that the right thigh and gluteal abnormality may extend intraosseous, possibly osteomyelitis. Jace Bird MD Cardiovascular: Regular Lungs: Clear Abdomen: Non-distended, Non-tender Extremities: Other (see below) Narrative Exam RIGHT hip: Wound vac in place with good seal; BARRY bandage in place A/P Problem List: (1) Right leg swelling ICD Codes: M79.89 - Other specified soft tissue disorders Status: Acute (2) Abscess of gluteal region ICD Codes: L02.31 - Cutaneous abscess of buttock (3) Abscess of right hip ICD Codes: L02.415 - Cutaneous abscess of right lower limb (4) Neurogenic urinary incontinence ICD Codes: N39.498 - Other specified urinary incontinence (5) Abscess of lower leg ICD Codes: L02.419 - Cutaneous abscess of limb, unspecified (6) Cellulitis and abscess of lower extremity ICD Codes: L03.119 - Cellulitis of unspecified part of limb; L02.419 - Cutaneous abscess of limb, unspecified Assessment and Plan 41 year old male with RIGHT hip abscess; POD1 I&D of RIGHT hip abscess that extended down RIGHT leg -Wound Vac per Dr. Dan -Dr. Dan planning for OR tomorrow -Continue antibiotics---ID following -Diet as tolerated Attending Statement NOTE FOR SURGICAL ATTENDING, DR. BERTRAND CAMPOS I agree with above assessment and plan. The exam, history, and the medical decision-making described in the above note were completed with the assistance of the mid-level provider. I reviewed and agree with the findings presented. I attest that I had a [id number] encounter with the patient on the same day, and personally performed and documented my assessment and findings in the medical record. The following services were provided during this hospital visit: Chart data review, vital sign assessments/reviewing monitor data Review of consultations notes if present. Medication orders/review and/or management Ordering and/or reviewing lab tests Ordering and/or interpreting/reviewing x-rays and/or diagnostic studies Care of the patient and discussion of the patient with the care team Documentation time To help prompt me to consider important information that might be impacting today's encounter and assessment, information from prior notes written by myself or my colleagues may have been "brought forward/copy and pasted" into today's note. Kamille Watt Nov 17, 2017 13:39 Bertrand Campos MD Nov 17, 2017 15:32
[2017-11-17] MEDS ORDERED: REMOVE OLD DURAGESIC (FENTANYL) PATCH T-DERMAL ONE (14:00)
[2017-11-17] MEDS: ARIPiprazole 5 MG TAB PO SCH (14:45)
--- NOTE | 2017-11-17 14:58 | PD.PSY.CON ---
Provisional Diagnosis Admission Date Nov 08, 2017 at 22:41 History of Present Illness Service Psychiatry Consult Requested By Medical team Reason for Consult Schizoaffective disorder Primary Care Physician Black Sanchez, DO CRENSHAW The patient is a 41 year-old man, domiciled with his mother in [place], single, unemployed, with extensive psychiatric history of schizoaffective disorder bipolar type, cannabis use disorder, 3 previous psychiatric hospitalizations, last hospitalization was about 2 years ago, established outpatient care with a private psychiatrist in [facility], he is on Haldol decanoate 250 mg monthly, last dose was November 04, 2017, Risperdal 3 mg twice a day, Depakote 500 mg in the morning, at thousand milligrams at night , hydroxyzine 25 mg 3 times a day, no significant medical history, who was hospitalized due to a gluteal abscess. Approx 1 month back after he received his last Haldol IM shot in right buttock patient noticed pain and swelling and decreased range of motion. Patient continued to receive Haldol shots in left buttock due to pain in right buttock. Patient reports his ability to move around has declined since last 1 week and he needs help with ADL phuong dressing himself due to significant pain on right lower extremity. Patient reports fevers chills and night sweats for the last 1 week prior to admission and significant worsening pain and swelling of his right lower extremity. Patient was finally admitted in the ICU due to sepsis, gluteal cellulitis, osteomyelitis. Consulted to psychiatry today for medication management of schizoaffective disorder and due to psychosis. Chart was reviewed. Collateral information from his mother Jennifer Price was obtained. On psychiatric evaluation today the patient is poorly cooperative, very poor historian, oppositional and irritable. Patient reports that he feels much better today. He denies pain, he denies distress. But, he became increasingly verbally hostile. Disorganized , tangential with Justen flight of ideas and paranoia. He says that he does not speak with "Héctor, Azerbaijani, doctor". He says that he has a lot of money in the side of his bed. He denies suicidal and homicidal ideation, he denies visual hallucinations. However, he seems to be internally preoccupied. I spoke with his mother who informed me that the patient was already decompensated of his psychosis before coming to the hospital. She was commenting with patient's father that the current psychotropic regimen that the patient is on is not really working. She says that one or 2 weeks right after he gets his shot of Haldol the patient is usually at baseline, but he tends to decompensate and become paranoid and disorganized. She reports that the patient is not usually aggressive, but he can becomes quite paranoid and agitated. She is in agreement of adding another psychotropic if required. She is also in agreement that if patient doesn't get back to baseline he might benefit of psychiatric admission. Review of Systems Constitutional: DENIES: Diaphoretic episodes, Fatigue, Fever, Weight gain, Weight loss, Chills, Dizziness, Change in appetite, Night Sweats Endocrine: DENIES: Heat/cold intolerance, Polydipsia, Polyuria, Polyphagia Ears, nose, mouth, throat: DENIES: Tinnitus, Hearing loss, Vertigo, Nasal discharge, Oral lesions, Throat pain, Hoarseness, Ear Pain, Running Nose, Epistaxis, Sinus Pain, Toothache, Odynophagia Respiratory: DENIES: Apneas, Cough, Snoring, Wheezing, Hemoptysis, Sputum production, Shortness of breath Cardiovascular: DENIES: Chest pain, Palpitations, Syncope, Dyspnea on Exertion , PND, Lower Extremity Edema, Orthopnea, Claudication Gastrointestinal: DENIES: Abdominal pain, Black stools, Bloody stools, Constipation, Diarrhea, Nausea, Vomiting, Difficulty Swallowing, Anorexia Genitourinary: DENIES: Sexual dysfunction, Urinary frequency, Urinary incontinence, Urgency, Hematuria, Dysuria, Nocturia, Penile Discharge, Testicular Pain, Testicular Swelling Musculoskeletal: DENIES: Joint pain, Muscle aches, Stiffness, Joint Swelling, Back pain, Neck pain Integumentary: DENIES: Abnormal pigmentation, Nail changes, Pruritus, Rash Hematologic/lymphatic: DENIES: Bruising, Lymphadenopathy Immunologic/allergic: DENIES: Eczema, Urticaria Neurologic: DENIES: Abnormal gait, Headache, Localized weakness, Paresthesias, Seizures, Speech Problems, Tremor, Poor Balance Psychiatric: DENIES: Anxiety, Confusion, Mood changes, Depression, Hallucinations, Agitation, Suicidal Ideation, Homicidal Ideation, Delusions Past Family Social History Coded Allergies: diphenhydramine (Verified Adverse Reaction, Unknown, 11/08/17) Reported Medications Divalproex ER (Depakote ER) 500 Mg Billie, 500 MG PO TID for Control Seizures, # 60 TAB 0 Refills 500mg in am; 1,000 mg HS 11/13/17 Risperidone (Risperdal) 3 Mg Tab, 3 MG PO Q12HR, #60 TAB 0 Refills 11/13/17 Hydroxyzine HCl (Hydroxyzine HCl) 50 Mg Tab, 50 MG PO TID, TAB 0 Refills 11/13/17 Propranolol (Propranolol) 20 Mg Tab, 20 MG PO Q12HR, #60 TAB 0 Refills 11/08/17 Discontinued Reported Medications Hydroxyzine HCl (Hydroxyzine HCl) 50 Mg Tab, 50 MG PO BID, TAB 0 Refills 11/08/[address] (Divalproex DR) 500 Mg Tabdr, 500 MG PO BID for Control Seizures, #60 TAB 0 Refills 11/08/17 Risperidone (Risperidone) 3 Mg Tab, 3 MG PO DAILY, #30 TAB 0 Refills 11/08/17 Current Medications Medications (Trade) Dose Ordered Sig/Mega Route Start Time Stop Time Status Last Admin (Depakote Dr) 500 mg BID PO 11/09/17 09:00 Future Hold 11/09/17 09:22 (Atarax) 50 mg BID PO 11/09/17 09:00 11/17/17 08:13 (risperDAL) 3 mg DAILY PO 11/09/17 09:00 Future Hold 11/13/17 08:02 (NS Flush) 2 ml UNSCH PRN IV FLUSH 11/08/17 23:15 (NS Flush) 2 ml BID IV FLUSH 11/09/17 09:00 11/17/17 08:57 (Tylenol) 650 mg Q6H PRN PO 11/08/17 23:15 11/11/17 04:42 (Pepcid Inj) 20 mg Q12HR IV PUSH 11/09/17 09:00 11/17/17 08:13 (Zofran Inj) 4 mg Q6H PRN IV PUSH 11/08/17 23:15 (Restoril) 15 mg HS PRN PO 11/08/17 23:15 (Duoneb Neb) 1 ampule Q2HR NEB PRN INH 11/08/17 23:15 11/17/17 05:54 Miscellaneous Information 1 Q361D XX 11/08/17 23:15 11/08/17 01:00 (Chlorhexidine 2% Cloth) Taper DAILY@04 TOP 11/09/17 04:00 11/05/18 03:59 (Chlorhexidine 2% Cloth) 3 pack UNSCH PRN TOP 11/08/17 23:15 (Peridex 0.12% Liq) 15 ml BID@08,20 MT 11/09/17 20:00 11/15/17 20:00 (Depakene Liq) 500 mg BID OG-TUBE 11/09/17 23:00 Future Hold 11/13/17 08:02 Dextrose 1,000 ml @ 75 mls/hr [id number] IV 11/12/17 16:45 11/17/17 01:45 (Dilaudid Pf Inj) 1 mg Q3H PRN IV PUSH 11/13/17 16:00 11/17/17 09:57 (risperDAL M-TAB) 3 mg Q12HR PO 11/13/17 21:00 11/17/17 08:13 Valproate Sodium 500 mg/Sodium Chloride 105 ml @ 105 mls/hr Q8HR IV 11/13/17 22:00 11/17/17 06:12 (Duoneb Neb) 1 ampule Q4HR NEB NEB 11/14/17 00:00 11/17/17 11:31 Ceftriaxone Sodium 2000 mg/ Sodium Chloride 100 ml @ 200 mls/hr Q24H IV 11/14/17 09:00 11/17/17 08:12 Potassium Chloride 100 ml @ 50 mls/hr Q2H PRN IV 11/14/17 14:00 Potassium Chloride 100 ml @ 50 mls/hr Q2H PRN IV 11/14/17 14:00 11/15/17 00:47 (K-Lyte Cl Eff) 50 meq UNSCH PRN PO 11/14/17 14:00 Potassium Chloride 100 ml @ 25 mls/hr UNSCH PRN IV 11/14/17 14:00 Potassium Chloride 100 ml @ 50 mls/hr Q2H PRN IV 11/14/17 14:00 11/15/17 23:08 Magnesium Sulfate 4 gm/Sodium Chloride 100 ml @ 50 mls/hr UNSCH PRN IV 11/14/17 14:00 (Mag-Ox) 800 mg UNSCH PRN PO 11/14/17 14:00 Magnesium Sulfate 2 gm/Sodium Chloride 100 ml @ 50 mls/hr UNSCH PRN IV 11/14/17 14:00 (K-Phos) 2,000 mg Q4H PRN PO 11/14/17 14:00 Sodium Phosphate 30 mmol/Sodium Chloride 250 ml @ 42 mls/hr UNSCH PRN IV 11/14/17 14:00 (K-Phos) 2,000 mg UNSCH PRN PO/TUBE 11/14/17 14:00 Potassium Phosphate 30 mmol/ Sodium Chloride 260 ml @ 42 mls/hr UNSCH PRN IV 11/14/17 14:00 Metronidazole 100 ml @ 100 mls/hr Q8HR IV 11/14/17 16:00 11/17/17 06:12 Micafungin Sodium 150 mg/Sodium Chloride 100 ml @ 100 mls/hr Q24H IV 11/15/17 09:00 11/17/17 08:13 (Mycostatin Cream) 1 applic Q6HR TOPICAL 11/15/17 18:00 11/17/17 12:00 Pharmacy Profile Note 0 ml @ 0 mls/hr UNSCH OTHER 11/15/17 17:15 Vancomycin HCl 1500 mg/Sodium Chloride 515 ml @ 257.5 mls/ hr Q12H IV 11/16/17 12:00 11/17/17 12:50 Miscellaneous Information SPECIFIC LAB TO BE .. ONCE ONCE .XX 11/17/17 23:45 11/17/17 23:46 Family Psych History Patient has a grandfather with bipolar disorder Social History Patient was born and raised in [facility], he lives with his mother in [place], single, unemployed, supported by his family, he has a GED Patient's Strengths (min. 2) Family support Physical Exam No tremors, no EPS present Vital Signs Vital Signs Date Time Temp Pulse Resp B/P (MAP) Pulse Ox O2 Delivery O2 Flow Rate FiO2 11/17/17 11:36 92 Nasal Cannula 6.00 11/17/17 10:00 101 11/17/17 08:00 98.4 24 110/56 (74) 11/14/17 07:37 50 I/O 11/17/17 11/17/17 11/18/17 08:00 16:00 00:00 Intake Total 240 ml Output Total 2200 ml Balance -1960 ml Lab Results Test 11/16/17 16:35 11/17/17 03:17 White Blood Count 31.3 TH/MM3 37.7 TH/MM3 Red Blood Count 2.45 MIL/MM3 3.74 MIL/MM3 Hemoglobin 6.6 GM/DL 10.3 GM/DL Hematocrit 21.1 % 31.3 % Mean Corpuscular Volume 86.2 FL 83.7 FL Mean Corpuscular Hemoglobin 27.1 PG 27.4 PG Mean Corpuscular Hemoglobin Concent 31.4 % 32.8 % Red Cell Distribution Width 17.5 % 17.6 % Platelet Count 167 TH/MM3 195 TH/MM3 Mean Platelet Volume 8.6 FL 8.5 FL Neutrophils (%) (Auto) 94.3 % Lymphocytes (%) (Auto) 2.3 % Monocytes (%) (Auto) 3.2 % Eosinophils (%) (Auto) 0.0 % Basophils (%) (Auto) 0.2 % Neutrophils # (Auto) 29.5 TH/MM3 Lymphocytes # (Auto) 0.7 TH/MM3 Monocytes # (Auto) 1.0 TH/MM3 Eosinophils # (Auto) 0.0 TH/MM3 Basophils # (Auto) 0.1 TH/MM3 CBC Comment AUTO DIFF AUTO DIFF Differential Total Cells Counted 100 100 Neutrophils % (Manual) 57 % 59 % Band Neutrophils % 36 % 35 % Lymphocytes % 1 % 2 % Monocytes % 1 % 2 % Neutrophils # (Manual) 30.7 TH/MM3 36.2 TH/MM3 Metamyelocytes 2 % 2 % Myelocytes 3 % Differential Comment FINAL DIFF MANUAL FINAL DIFF MANUAL Toxic Granulation 1+ Platelet Estimate NORMAL NORMAL Platelet Morphology Comment NORMAL NORMAL Target Cells 1+ 1+ Toxic Vacuolation PRESENT Basophilic Stippling FAINT Blood Urea Nitrogen 14 MG/DL Creatinine 0.55 MG/DL Random Glucose 99 MG/DL Total Protein 4.8 GM/DL Albumin 1.1 GM/DL Calcium Level 7.5 MG/DL Magnesium Level 1.9 MG/DL Alkaline Phosphatase 47 U/L Aspartate Amino Transf (AST/SGOT) 24 U/L Alanine Aminotransferase (ALT/SGPT) 11 U/L Total Bilirubin 0.3 MG/DL Sodium Level 148 MEQ/L Potassium Level 3.9 MEQ/L Chloride Level 113 MEQ/L Carbon Dioxide Level 28.1 MEQ/L Anion Gap 7 MEQ/L Estimat Glomerular Filtration Rate 166 ML/MIN Date/Time Source Procedure Growth Status 11/15/17 10:51 Blood Peripheral Blood Fungal Culture Pending Received 11/15/17 10:51 Blood Peripheral Blood Fungal Culture Pending Received 11/16/17 11:57 Fluid Other Fungal Smear - Final NO FUNGAL ELEMENTS SEEN. Resulted 11/16/17 11:57 Fluid Other Fungal Culture Pending Resulted 11/08/17 21:45 Urine Catheterized Urine Urine Culture - Final NO GROWTH IN 48 HOURS. Complete 11/09/17 15:20 Wound Hip Fungal Smear - Final NO FUNGAL ELEMENTS SEEN. Resulted 11/09/17 15:20 Fungal Culture - Preliminary Paz Albicans Resulted Mental Status Examination Appearance: Appropriate Consciousness: Alert Orientation: x4 Motor Activity: Normal gait Speech: Unremarkable Language: Adequate Fund of Knowledge: Adequate Attention and Concentration: Adequate Memory: Unremarkable Mood: Angry Affect: Irritable Thought Process & Associations: Loose associations, Disorganized, Tangential Thought Content: Appropriate Hallucination Type: None Delusion Type: Paranoid Suicidal Ideation: No Suicidal Plan: No Suicidal Intention: No Homicidal Ideation: No Homicidal Plan: No Homicidal Intention: No Insight: Poor Judgment: Poor Assessment & Plan Problem List: (1) Schizoaffective disorder, bipolar type ICD Codes: F25.0 - Schizoaffective disorder, bipolar type Assessment & Plan: The patient is a 41 year-old with extensive psychiatric history of schizoaffective disorder bipolar type, cannabis use disorder, 3 previous psychiatric hospitalizations, last hospitalization was about 2 years ago, established outpatient care with a private psychiatrist in [facility], he is on Haldol decanoate 250 mg monthly, last dose was November 04, 2017, Risperdal 3 mg twice a day, Depakote 500 mg in the morning, at thousand milligrams at night, hydroxyzine 25 mg 3 times a day, no significant medical history, who was hospitalized due to a gluteal abscess. Patient was finally admitted in the ICU due to sepsis, gluteal cellulitis, osteomyelitis. Consulted to psychiatry today for medication management of schizoaffective disorder and due to psychosis. On psychiatric evaluation today the patient is oppositional, very irritable, poorly cooperative, paranoid, with tangential and disorganized thought process. He does not really provide any meaningful information for the psychiatric evaluation. Is his mother, use for collateral information, who completes the information for the psychiatric assessment. She reports the patient has been paranoid and decompensated even before of his hospitalization in [place]. Patient might benefit of psychiatric admission for stabilization. He could be a good candidate for med psych unit. Continue Risperdal 3 mg twice a day. Will restart his Depakote ER 500 mg twice a day. Order Depakote levels. Will add Abilify 5 mg to control psychosis. Continue hydroxyzine 50 mg twice a day for EPS. Last Haldol decanoate dose was November 04, 2017. We'll follow-up in Assessment & Plan Estimated LOS: days Rylan Solorzano MD Nov 17, 2017 14:57
[2017-11-17] MEDS: DIVALPROEX SODIUM E.R. 500 MG TAB PO SCH ×2 (15:28→20:36)
[2017-11-17 22:58] LABS: VANCOMYCIN TROUGH 19.5 MCG/ML (5.0-10.0)
[2017-11-17] MEDS ORDERED: PHARMACY ORDERED LAB ONE (23:45)
[2017-11-18] VITALS (16 sets, daily range): BP systolic 95–112; BP diastolic 49–58; PULSE 76–98; RESP 21–28; TEMP 98.2–99.2; O2SAT 93–100
[2017-11-18] MEDS: VANCOMYCIN INJ 1,500 MG in SODIUM CHLORID 0.9% 500 ML INJ 500 ML IV SCH ×3 (00:08→23:00)
[2017-11-18] MEDS: NYSTATIN 100,000 UNIT/GM CREAM 15 GM TOPICAL SCH ×5 (00:08→23:01)
[2017-11-18] MEDS: HYDROmorphone HCL PF 2 MG/ML VIAL IV PUSH PRN (01:24)
[2017-11-18] MEDS: RESP: ALBUTEROL 2.5 MG/IPRATROPIUM 0.5 MG NEB (PRN) INH (03:17)
[2017-11-18] MEDS: CHLORHEXIDINE GLUCONATE 2 % 1 PACK (2 CLOTHS) TOP SCH (04:00)
[2017-11-18] MEDS: METRONIDAZOLE 500 MG/100 ML ISONTONIC SOLN IV SCH ×3 (04:26→20:13)
[2017-11-18] MEDS: VALPROATE INJ 500 MG in SODIUM CHLORIDE 0.9% INJ 100 ML IV SCH ×3 (04:26→20:13)
[2017-11-18 05:36] LABS: HEMATOCRIT 27.9 % (39.0-51.0); MEAN CELL VOLUME 83.8 FL (80.0-100.0); MEAN CORPUSCULAR HEMOGLOBIN 27.1 PG (27.0-34.0); MEAN CORPUSCULAR HGB CONC 32.3 % (32.0-36.0); MEAN PLATELET VOLUME 8.5 FL (7.0-11.0); PLATELET COUNT 243 TH/MM3 (150-450); RED BLOOD COUNT 3.33 MIL/MM3 (4.50-5.90); WHITE BLOOD COUNT 37.7 TH/MM3 (4.0-11.0)
[2017-11-18 05:51] LABS: BICARBONATE 30.2 MEQ/L (21.0-32.0); CALCIUM 7.8 MG/DL (8.5-10.1); CREATININE 0.58 MG/DL (0.60-1.30)
--- NOTE | 2017-11-18 07:08 | PD.ORT.PN ---
Subjective Subjective Remarks POD 2 s/p I&D right thigh with vac placement doing well. pain controlled. patient confused and does not make sense. Objective Vitals Vital Signs Date Time Temp Pulse Resp B/P (MAP) Pulse Ox O2 Delivery O2 Flow Rate FiO2 11/18/17 06:00 98 11/18/17 04:00 98.3 98 28 112/58 (76) 98 11/18/17 04:00 98 11/18/17 02:00 76 11/18/17 00:00 99.2 94 23 106/58 (74) 100 11/18/17 00:00 94 11/17/17 22:00 96 Partial Rebreather 12.00 11/17/17 22:00 102 11/17/17 21:40 78 Partial Non-Rebreather 11/17/17 20:04 92 Nasal Cannula 6.00 11/17/17 20:00 91 Nasal Cannula 6.00 11/17/17 20:00 100 11/17/17 20:00 98.8 100 36 107/57 (74) 91 11/17/17 19:00 88 Nasal Cannula 6.00 11/17/17 18:00 89 11/17/17 16:00 98.3 101 22 114/61 (78) 92 11/17/17 16:00 99 11/17/17 14:00 99 11/17/17 12:00 97 11/17/17 12:00 99.2 96 20 103/74 (84) 91 11/17/17 11:36 92 Nasal Cannula 6.00 11/17/17 10:00 101 11/17/17 08:00 98 11/17/17 08:00 98.4 91 24 110/56 (74) 94 11/17/17 07:36 95 Nasal Cannula 3.00 I/O 11/17/17 11/17/17 11/17/17 11/18/17 11/18/17 11/18/17 07:00 15:00 23:00 07:00 15:00 23:00 Intake Total 240 ml 840 ml 240 ml Output Total 2200 ml 1750 ml 3200 ml Balance -1960 ml -910 ml -2960 ml Intake Oral 240 ml 840 ml 240 ml Output Urine Total 1100 ml 900 ml 2200 ml Drainage Total 1100 ml 850 ml 1000 ml # Bowel Movements 2 2 0 Result Diagram: 11/18/1733111/18/17331 Objective Remarks RLE: +vac. good seal. good cap refill distally Assessment & Plan Assessment and Plan 1) Right Leg Infection s/p I&D with vac placement - POD 2 -vac settings: 125mmHg, low, 10min soak at 30mL, 2hr suction time -surgery today with Sy -consents on chart and signed by Sy. have family sign consents this AM\ POD 0 s/p I&D and vac change right thigh -maintain vac at all times -vac settings: 125mmHg, low, 10min soak at 30mL, 2hr suction time -will plan for repeat I&D next week, possibly tuesday Gigi Rodríguez/First Laverne BOSS Nov 18, 2017 07:08
--- NOTE | 2017-11-18 07:58 | HHI.CCPN ---
Subjective Remarks/Hospital Course 41 year old male presents for evaluation of difficulty walking, generalized weakness that began earlier today. The patient arrives out in triage with a blood pressure systolic in the 70s. According to the patient's mother he has not been well since July. She reports that he was seen at another emergency department related to back and hip pain at that time. The patient at that time was also diagnosed with a fecal impaction and severe constipation. He has been since then seen by a knitter hand. He was placed on a bowel regimen to help with the constipation, however his mother reports that he's been having difficulty maintaining it. The patient since July has been incontinent of stool and intermittently incontinent of urine. The stool is brown in color. The patient has a diagnosis of schizoaffective disorder and is a poor historian. His mother reports that he has a history of being diagnosed with a nerve problem involving the right leg and since Tuesday he has had swelling of the right leg. He reports having abdominal pain down in bilateral lower quadrants of the abdomen. He reports having nausea. They deny him having any known recent fevers, worsening cough or congestion, neck pain, chest pain, shortness of breath, weakness of his upper extremities, numbness or tingling of his upper extremities. The patient does however report having weakness of bilateral lower extremities with pain/sharp pains that shoot down into the right leg. The CT scan obtained in the emergency department shows abnormal appearance of the soft tissue of the proximal thigh and the gluteal region with fluid and gas tracking between the rectus muscle in the anterior thigh muscle. The combination of fluid and gas suggest either an infectious or necrotic process. 11/09: Ongoing resuscitation from sepsis due to right thigh abscess, extends to gluteal region, possible bone involvement? Urine acceptable. 11/10: S/P debridement right thigh abscess and wound vac. Septic behavior. Continue ventilator support, back to OR tomorrow. 11/11: No events over the night. Patient remains intubated and sedated. No pressors. Tmax 101.5, I/O 1950/2100. No family at bedside. 11/12: Hb low yesterday evening, received 2 units PRBC. Decreasing sedation to better assess mental status. No pressors. Good urine output. Tmax 100.3. 11/13: Few rhonchi but lungs generally clear - will try to extubate. 11/14: Extubated 11/13 and breathing comfortably. Small left effusion. IV is D5W but sodium still elevated. DVT prophylaxis held for OR. 11/15: Worsening sepsis, WBC increased to 23,400. Wound cx from 11/09/17 also growing yeast. I will start micafungin 150 mg daily, first dose stat. Discussed with ID Dr. Upton- send blood cultures. Also sodium noted to be climbing today 160. Increased D5W to 200 ML per hour and check BMP 2 PM 11/16: Right thigh remains tense. Micafungin started for wound culture growing [place]alee. CT of the right lower extremity shows extensive fluid surrounding the quadriceps muscle as air within the collection suspicious for abscess. Case was discussed extensively with Dr. Campos and the surgical team yesterday. OR with general surgery, ortho today. Receiving 2 units of PRBC. 11/17: Continuing septic picture. Hemodynamics stable. Plan for wound exploration by Orthopedics tomorrow. Continue to push nutrition. 11/18: Continued smoldering septic picture. Wound exploration planned for today. Patient is stable for procedure. Excessive secretions remain problematic. Objective Vital Signs Date Time Temp Pulse Resp B/P (MAP) Pulse Ox O2 Delivery O2 Flow Rate FiO2 11/18/17 07:23 98 Partial Rebreather 12.00 11/18/17 06:00 98 11/18/17 04:00 98.3 28 112/58 (76) 11/14/17 07:37 50 Intake and Output 11/18/17 11/18/17 11/19/17 08:00 16:00 00:00 Intake Total 240 ml Output Total 3200 ml Balance -2960 ml Result Diagram: 11/18/17 0332 11/18/17 0332 Imaging Last 24 hours Impressions Lower Extremity Ultrasound 11/08/172011 Signed Impressions: Service Date/Time: Wednesday, November 08, 2017 20:41 - CONCLUSION: 1. Negative for deep venous thrombosis. There are mildly enlarged right inguinal lymph nodes. Bertrand Smalls MD Chest X-Ray 11/08/172011 Signed Impressions: Service Date/Time: Wednesday, November 08, 2017 21:10 - CONCLUSION: 1. Subsegmental airspace disease right lung base. Finding may represent a small bronchopneumonia. Bertrand Smalls MD Abdomen/Pelvis CT 11/08/172011 Signed Impressions: Service Date/Time: Wednesday, November 08, 2017 22:54 - CONCLUSION: 1. Abnormal appearance of the soft tissues of the proximal thigh and gluteal region with fluid and gas tracking between the rectus muscles and the anterior thigh muscles. No focal abnormal areas of enhancement. The combination of fluid and gas suggests either an infectious or necrotic process. 2. Nonobstructing small calcified stone mid pole left kidney and multiple left renal cysts. 3. Small bilateral pleural effusions. Jace Bird MD Objective Remarks General - middle age gentleman, ill appearing. HEENT - pupils are equal, reactive, sclerae are anicteric, neck is supple, airway widely patent. CV - regular heart sounds, no murmurs Chest - scattered coarse breath sounds b/l, good air entry, no wheezes, copious secretions. Abdomen soft, non-tender, non-distended, BS present Extremities - 1+ pitting edema of the right lower extremity, tr+ edema of the left lower extremity. Diffuse swelling and redness over the right thigh anteriorly extending from the hip to below right knee, wound vac over the right hip, whole right thigh tender to touch Neuro - pupils equal, reactive, follows commands, moves 4 limbs with 5/5. Conversant but a little confused. A/P Assessment and Plan ASSESSMENT: 1. Severe sepsis secondary thigh abscess/OM s/p I&D with wound vac placement ( due to mixed clara, rosalee) 2. Viridans strep and CoNS bacteremia 3. Sacral OM 4. Hyperchloremic hypernatremia 5. Schizoaffective disorder 6. Acute respiratory failure - now on minimal FiO2 requirements 7. Anemia requiring transfusion PLAN: 1. Continue micafungin 150 mg daily for yeast in wound culture, follow up fungal blood cultures, adjust per ID service. 2. Antibiotics per ID (Ceftriaxone IV, oral Flagyl) 3. CT of the right lower extremity concerning for abscess. Plan for OR with general surgery and ortho today.. 4. Transfused 2 units PRBC. 5. Free water replacement with half normal saline bolus, continue D5W at 75 ML per hour 6. FM O2. IS 7. Continue psych meds. Psychiatric consulted to assist with medication 8. On Depakote and Risperidone 9. DVT prophylaxis, GI prophylaxis 10. Tube feeds with free water, if fails swallow again Overall impression: Remains critically ill with worsening sepsis, right thigh with abscess formation white count increasing to 28,000, now with yeast in the wound culture. Free water increased. Will try to supplement nutrition. Ready for OR today. Tariq Garcia MD Nov 18, 2017 07:58
[2017-11-18 07:59] LABS: BANDS 1 % (0-6); LYMPHOCYTES 2 % (9-44); MONOCYTES 1 % (0-8); NEUTROPHIL # MANUAL DIFF 36.6 TH/MM3 (1.8-7.7); POLYS (SEG NEUTROPHILS) 96 % (16-70)
[2017-11-18] MEDS: CHLORHEXIDINE 0.12% (ORAL KIT) 15 ML CUP MT SCH ×2 (08:00→20:00)
[2017-11-18] MEDS: DEXTROSE 5% IN WATE 1000ML INJ 1,000 ML IV SCH ×2 (08:04→21:59)
[2017-11-18] MEDS: risperiDONE ODT 3 MG TAB PO SCH ×2 (08:35→20:13)
[2017-11-18] MEDS: DIVALPROEX SODIUM E.R. 500 MG TAB PO SCH ×2 (08:36→20:13)
[2017-11-18] MEDS: ARIPiprazole 5 MG TAB PO SCH (08:36)
[2017-11-18] MEDS: FAMOTIDINE 20 MG/2 ML VIAL IV PUSH SCH ×2 (08:36→20:13)
[2017-11-18] MEDS: cefTRIAXone INJ 2,000 MG in SODIUM CHLORIDE 0.9% INJ 100 ML IV SCH (08:37)
[2017-11-18] MEDS: MICAFUNGIN INJ 150 MG in SODIUM CHLORIDE 0.9% INJ 100 ML IV SCH (09:00)
[2017-11-18] MEDS: hydrOXYzine HCL 50 MG TAB PO SCH ×2 (09:00→20:13)
[2017-11-18] MEDS: SODIUM CHLORIDE 0.9% FLUSH 10 ML FLUSH IV FLUSH SCH ×2 (09:00→20:14)
--- NOTE | 2017-11-18 10:58 | HHI.PYPN ---
Subjective Remarks The patient was seen today for psychiatric reevaluation. Chart reviewed. Case discussed with nursing staff. On psychiatric evaluation today the patient is poorly cooperative, very disorganized, irrational, with Justen loosening of associations and flight of ideas. Patient is partially oriented in time and place, but he doesn't know the reason of his hospitalization. He has been agitated to the point that he has needed restraints in order to continue the medical treatment. He has not been aggressive. Compliant with medications, no significant side effects so far. Review of Systems Psychiatric: COMPLAINS OF: Confusion, Delusions Mental Status Examination Appearance: Appropriate Consciousness: Alert Orientation: x4 Motor Activity: Normal gait Speech: Unremarkable Language: Adequate Fund of Knowledge: Adequate Attention and Concentration: Adequate Memory: Unremarkable Mood: Angry Affect: Irritable Thought Process & Associations: Loose associations, Disorganized, Tangential Thought Content: Appropriate Hallucination Type: None Delusion Type: Paranoid Suicidal Ideation: No Suicidal Plan: No Suicidal Intention: No Homicidal Ideation: No Homicidal Plan: No Homicidal Intention: No Insight: Poor Judgment: Poor Results Labs Test 11/17/17 21:50 11/18/17 03:32 Vancomycin Level Trough 19.5 MCG/ML Valproic Acid (Depakene) Level 44 MCG/ML White Blood Count 37.7 TH/MM3 Red Blood Count 3.33 MIL/MM3 Hemoglobin 9.0 GM/DL Hematocrit 27.9 % Mean Corpuscular Volume 83.8 FL Mean Corpuscular Hemoglobin 27.1 PG Mean Corpuscular Hemoglobin Concent 32.3 % Red Cell Distribution Width 18.0 % Platelet Count 243 TH/MM3 Mean Platelet Volume 8.5 FL CBC Comment AUTO DIFF Differential Total Cells Counted 100 Neutrophils % (Manual) 96 % Band Neutrophils % 1 % Lymphocytes % 2 % Monocytes % 1 % Neutrophils # (Manual) 36.6 TH/MM3 Differential Comment FINAL DIFF MANUAL Platelet Estimate NORMAL Platelet Morphology Comment NORMAL Basophilic Stippling FAINT Blood Urea Nitrogen 12 MG/DL Creatinine 0.58 MG/DL Random Glucose 97 MG/DL Calcium Level 7.8 MG/DL Sodium Level 147 MEQ/L Potassium Level 3.6 MEQ/L Chloride Level 112 MEQ/L Carbon Dioxide Level 30.2 MEQ/L Anion Gap 5 MEQ/L Estimat Glomerular Filtration Rate 156 ML/MIN Date/Time Source Procedure Growth Status 11/15/17 10:51 Blood Peripheral Blood Fungal Culture Pending Received 11/15/17 10:51 Blood Peripheral Blood Fungal Culture Pending Received 11/16/17 11:57 Fluid Other Fungal Smear - Final NO FUNGAL ELEMENTS SEEN. Resulted 11/16/17 11:57 Fluid Other Fungal Culture Pending Resulted 11/08/17 21:45 Urine Catheterized Urine Urine Culture - Final NO GROWTH IN 48 HOURS. Complete 11/09/17 15:20 Wound Hip Fungal Smear - Final NO FUNGAL ELEMENTS SEEN. Resulted 11/09/17 15:20 Fungal Culture - Preliminary Paz Albicans Resulted Vitals/IOs Vital Signs Date Time Temp Pulse Resp B/P (MAP) Pulse Ox O2 Delivery O2 Flow Rate FiO2 11/18/17 10:00 89 11/18/17 08:00 98.2 21 109/55 (73) 100 11/18/17 07:23 Partial Rebreather 12.00 11/14/17 07:37 50 Intake and Output 11/18/17 11/18/17 11/19/17 08:00 16:00 00:00 Intake Total 240 ml Output Total 3200 ml Balance -2960 ml Assessment & Plan Problem List: (1) Schizoaffective disorder, bipolar type ICD Codes: F25.0 - Schizoaffective disorder, bipolar type Assessment & Plan: Depakote level is 44. Continue current psychotropic regimen. In case of aggressive behavior, Haldol 5 mg IM every 8 hours when necessary severe aggressiveness/agitation can be given. The patient might benefit of psychiatric admission once medically stable. I will follow. Assessment & Plan Estimated LOS: days Justification for Cont. Inpt. Might need psychiatric admission once medically stable. Rylan Solorzano MD Nov 18, 2017 10:58
[2017-11-18] MEDS ORDERED: PHENYLEPH/NS 1000 MCG/10 ML SYR IV ONE (12:00)
[2017-11-18] MEDS ORDERED: ROCURONIUM INJ 50 MG/5 ML SYRINGE IV PUSH ONE (12:00)
[2017-11-18] MEDS ORDERED: PROPOFOL 200 MG/20 ML AMP IV ONE (12:00)
[2017-11-18] MEDS ORDERED: ONDANSETRON HCL 4 MG/2 ML VIAL IV ONE (12:00)
[2017-11-18] MEDS ORDERED: DEXAMETHASONE SOD PHOS 4 MG/ML VIAL IV ONE (12:00)
[2017-11-18] MEDS ORDERED: GENTAMICIN SULFATE 80 MG/2 ML VIAL ONE (12:41)
[2017-11-18] MEDS ORDERED: VANCOMYCIN HCL 1000 MG VIAL ONE (13:04)
[2017-11-18] MEDS ORDERED: TOBRAMYCIN 1200 MG VIAL (for ortho/sterile core) OTHER ONE (13:04)
--- NOTE | 2017-11-18 13:06 | HHI.PR ---
cc: Bertrand Campos MD Subjective Subjective Notes DAILY PROGRESS NOTE FOR SURGICAL ATTENDING, DR. BERTRAND CAMPOS Resting in bed Objective Vitals/I&O Vital Signs Date Time Temp Pulse Resp B/P (MAP) Pulse Ox O2 Delivery O2 Flow Rate FiO2 11/18/17 11:57 94 11/18/17 11:57 99.0 24 127/58 (81) 100 11/18/17 07:23 Partial Rebreather 12.00 11/14/17 07:37 50 Labs Laboratory Tests Test 11/17/17 21:50 11/18/17 03:32 Vancomycin Level Trough 19.5 Valproic Acid (Depakene) Level 44 White Blood Count 37.7 Red Blood Count 3.33 Hemoglobin 9.0 Hematocrit 27.9 Mean Corpuscular Volume 83.8 Mean Corpuscular Hemoglobin 27.1 Mean Corpuscular Hemoglobin Concent 32.3 Red Cell Distribution Width 18.0 Platelet Count 243 Mean Platelet Volume 8.5 CBC Comment AUTO DIFF Differential Total Cells Counted 100 Neutrophils % (Manual) 96 Band Neutrophils % 1 Lymphocytes % 2 Monocytes % 1 Neutrophils # (Manual) 36.6 Differential Comment FINAL DIFF MANUAL Platelet Estimate NORMAL Platelet Morphology Comment NORMAL Basophilic Stippling FAINT Blood Urea Nitrogen 12 Creatinine 0.58 Random Glucose 97 Calcium Level 7.8 Sodium Level 147 Potassium Level 3.6 Chloride Level 112 Carbon Dioxide Level 30.2 Anion Gap 5 Estimat Glomerular Filtration Rate 156 Date/Time Source Procedure Growth Status 11/15/17 10:51 Blood Peripheral Blood Fungal Culture Pending Received 11/15/17 10:51 Blood Peripheral Blood Fungal Culture Pending Received 11/16/17 11:57 Fluid Other Fungal Smear - Final NO FUNGAL ELEMENTS SEEN. Resulted 11/16/17 11:57 Fluid Other Fungal Culture Pending Resulted 11/08/17 21:45 Urine Catheterized Urine Urine Culture - Final NO GROWTH IN 48 HOURS. Complete 11/09/17 15:20 Wound Hip Fungal Smear - Final NO FUNGAL ELEMENTS SEEN. Resulted 11/09/17 15:20 Fungal Culture - Preliminary Paz Albicans Resulted Radiology Last 72 hours Impressions Lower Extremity CT 11/15/17 0000 Signed Impressions: Service Date/Time: Wednesday, November 15, 2017 13:22 - CONCLUSION: Extensive fluid surrounding the quadriceps musculature of the right thigh as well as air within the collection anteriorly and laterally which raises the possibility of abscess/infection. Fluid is also noted extending into the region of the gluteus muscles on the right. Diffuse subcutaneous edema the right thigh is noted. Compartment syndrome should be ruled out. Jez Chowdhury MD Abdomen/Pelvis CT 11/15/17 0000 Signed Impressions: Service Date/Time: Wednesday, November 15, 2017 13:22 - CONCLUSION: The abnormal soft tissue mass now has compartmentalized fluid collections and absence of air in the right soft tissues of thigh and gluteal region. This probably represents improving inflammatory or infectious process such as abscess. Small bilateral pleural effusions persist with a new consolidation with air bronchogram in the left lower lobe. Ascitic fluid suggested in the pelvis Silvio Laguerre MD Chest X-Ray 11/14/17 0600 Signed Impressions: Service Date/Time: Tuesday, November 14, 2017 04:22 - CONCLUSION: 1. Left basilar airspace disease similar to November 12. Bertrand Smalls MD Last 72 hours Impressions Abdomen/Pelvis CT 11/15/17 0000 Signed Impressions: Service Date/Time: Wednesday, November 15, 2017 13:22 - CONCLUSION: The abnormal soft tissue mass now has compartmentalized fluid collections and absence of air in the right soft tissues of thigh and gluteal region. This probably represents improving inflammatory or infectious process such as abscess. Small bilateral pleural effusions persist with a new consolidation with air bronchogram in the left lower lobe. Ascitic fluid suggested in the pelvis Silvio Laguerre MD Chest X-Ray 11/14/17 0600 Signed Impressions: Service Date/Time: Tuesday, November 14, 2017 04:22 - CONCLUSION: 1. Left basilar airspace disease similar to November 12. Bertrand Smalls MD Last Impressions Chest X-Ray 11/09/17 0000 Signed Impressions: Service Date/Time: Thursday, November 09, 2017 16:23 - CONCLUSION: Minimal infiltrate left base new from comparison study. Rodrick Ch MD FACR Lower Extremity Ultrasound 11/08/172011 Signed Impressions: Service Date/Time: Wednesday, November 08, 2017 20:41 - CONCLUSION: 1. Negative for deep venous thrombosis. There are mildly enlarged right inguinal lymph nodes. Bertrand Smalls MD Abdomen/Pelvis CT 11/08/172011 Signed Impressions: Service Date/Time: Wednesday, November 08, 2017 22:54 - CONCLUSION: 1. Abnormal appearance of the soft tissues of the proximal thigh and gluteal region with fluid and gas tracking between the rectus muscles and the anterior thigh muscles. No focal abnormal areas of enhancement. The combination of fluid and gas suggests either an infectious or necrotic process. 2. Nonobstructing small calcified stone mid pole left kidney and multiple left renal cysts. 3. Small bilateral pleural effusions. Jace Bird MD Thoracic Spine MRI 11/08/17 0000 Signed Impressions: Service Date/Time: Wednesday, November 08, 2017 22:01 - CONCLUSION: 1. Small bilateral pleural effusions. 2. No signal abnormalities in the thoracic vertebral bodies and no evidence of focal disc disease. Jace Bird MD Lumbar Spine MRI 11/08/17 0000 Signed Impressions: Service Date/Time: [place], November 08, 2017 22:01 - CONCLUSION: 1. No evidence of lumbar disc disease. 2. Soft tissue abnormality about the right gluteal region suggesting abscess with T2 prolongation and contrast enhancement ; this is incompletely included in the [id number] of the exam. 3. There is also abnormal signal within the marrow of the sacral and coccygeal marrow including contrast enhancement suggesting that the right thigh and gluteal abnormality may extend intraosseous, possibly osteomyelitis. Jace Bird MD Cardiovascular: Regular Lungs: Clear Abdomen: Non-distended, Non-tender Extremities: Other Narrative Exam RIGHT hip: Wound vac in place with good seal; BARRY bandage in place A/P Problem List: (1) Right leg swelling ICD Codes: M79.89 - Other specified soft tissue disorders Status: Acute (2) Abscess of gluteal region ICD Codes: L02.31 - Cutaneous abscess of buttock (3) Abscess of right hip ICD Codes: L02.415 - Cutaneous abscess of right lower limb (4) Neurogenic urinary incontinence ICD Codes: N39.498 - Other specified urinary incontinence (5) Abscess of lower leg ICD Codes: L02.419 - Cutaneous abscess of limb, unspecified (6) Cellulitis and abscess of lower extremity ICD Codes: L03.119 - Cellulitis of unspecified part of limb; L02.419 - Cutaneous abscess of limb, unspecified Assessment and Plan 41 year old male with RIGHT hip abscess; POD2 I&D of RIGHT hip abscess that extended down RIGHT leg -Wound Vac per Dr. Dan -Dr. Dan planning for OR today -Continue antibiotics---ID following -Diet as tolerated -GS will be available PRN Attending Statement NOTE FOR SURGICAL ATTENDING, DR. BERTRAND CAMPOS I agree with above assessment and plan. Will not see on a daily basis Please call if needed Kamille Watt Nov 18, 2017 13:06 Bertrand Campos MD Nov 18, 2017 16:09
[2017-11-18] MEDS ORDERED: SUGAMMADEX SODIUM 200 MG/2 ML VIAL IV PUSH ONE (13:44)
[2017-11-18] MEDS ORDERED: MICAFUNGIN OTHER ONE (14:00)
[2017-11-18] MEDS ORDERED: SODIUM CHLORIDE 0.9% OTHER ONE (14:00)
[2017-11-18] MEDS ORDERED: IRR OTHER ONE (14:00)
--- NOTE | 2017-11-18 14:08 | PD.OP ---
cc: Reynlado West MD Operative Report Date of Surgery: Nov 18, 2017 Preoperative Diagnosis: Right sided pelvic infection, right hip and thigh infection, right knee infection Postoperative Diagnosis: Procedure: Irrigation and debridement of right pelvis and hip, irrigation debridement of right thigh, irrigation debridement of right knee Anesthesia: Gen. Surgeon: Reynaldo West Pediatric Sports Medicine Specialist(s): DEVON Mcfadden PA-C The surgical procedure was assisted by my physician assistant womens volleyball coach. My P.A. presence was necessary throughout this case for the manipulation and positioning of the surgical extremity. My P.A. was assisting me throughout the duration of this procedure. The skill set of a physician assistant womens volleyball coach was medically necessary to complete this procedure. During the surgical case the neurosurgical nurse was working at the back table and the physician assistant womens volleyball coach was directly assisting me. Operation and Findings: Patient was seen and examined preoperatively. Patient returns operating room today for scheduled repeat irrigation and debridement. Informed consent was confirmed preoperatively and the operative site was marked. He was brought to the operating room. He was given IV sedation and general anesthesia. He was placed in lateral decubitus position. The right leg and pelvic region were prepped with alcohol, followed by Hibiclens and draped in the usual sterile fashion. At this point attention was turned to the pelvis. The wound and infection tracked up into the sacrum. The skin, subcutaneous tissue, fascia and bone were sharply debrided. Curettes were used to debride around bone. Soft tissue and muscle were debrided sharply with rongeurs. The thigh was fully explored. There was significant infection along the fascial planes of the thigh and quadriceps tendon. Part of the gluteus valerie muscle was excised. A large portion of the iliotibial band was excised. Small areas of muscle were also excised. Curettes, rongeurs and scalpel were used to debride necrotic tissue. At this point the knee joint was also opened. Arthrotomy was opened from the lateral incision. There was some mildly cloudy fluid in the knee joint. The knee joint was thoroughly irrigated as well. Loculations were manually debrided around the knee. Fashion from around the quadriceps muscles and tendons was also excised. All visible necrotic tissue was removed. After thorough debridement of all infected tissue, the wound was thoroughly irrigated with pulsatile lavage. 6 liters of sterile saline were used to irrigate the wound. At this was point the wound appeared to be relatively clean. Attention was turned to VAC dressing. An extra-large VAC dressing was cut. VAC dressings were placed into each of the fascial planes. The VAC dressing was now cut to fit the remaining wound. The VAC dressing was stapled into place. A Veraflo VAC dressing was utilized to allow for infusion of antibiotics with saline. VAC dressing was sealed appropriately. The patient was transferred to the recovery room in stable condition. Needle and sponge counts were correct. Reynaldo West MD Nov 18, 2017 14:08
[2017-11-18] MEDS ORDERED: RESP: ALBUTEROL 2.5 MG/3 ML NEB (PRN) ONE (14:22)
[2017-11-18] MEDS ORDERED: DO NOT ADM ANY ANTICOAGULANT DRUGS PRN (14:45)
--- NOTE | 2017-11-18 14:47 | PD.ORT.PN ---
Subjective Subjective Remarks POD 0 s/p I&D right thigh with vac placement stable in PACU. intubated Objective Vitals Vital Signs Date Time Temp Pulse Resp B/P (MAP) Pulse Ox O2 Delivery O2 Flow Rate FiO2 11/18/17 11:57 94 11/18/17 11:57 99.0 94 24 127/58 (81) 100 11/18/17 10:00 89 11/18/17 08:00 98.2 90 21 109/55 (73) 100 11/18/17 08:00 91 11/18/17 07:23 98 Partial Rebreather 12.00 11/18/17 07:00 100 Non-Rebreather 11/18/17 06:00 98 11/18/17 04:00 98.3 98 28 112/58 (76) 98 11/18/17 04:00 98 11/18/17 02:00 76 11/18/17 00:00 99.2 94 23 106/58 (74) 100 11/18/17 00:00 94 11/17/17 22:00 96 Partial Rebreather 12.00 11/17/17 22:00 102 11/17/17 21:40 78 Partial Non-Rebreather 11/17/17 20:04 92 Nasal Cannula 6.00 11/17/17 20:00 91 Nasal Cannula 6.00 11/17/17 20:00 100 11/17/17 20:00 98.8 100 36 107/57 (74) 91 11/17/17 19:00 88 Nasal Cannula 6.00 11/17/17 18:00 89 11/17/17 16:00 98.3 101 22 114/61 (78) 92 11/17/17 16:00 99 I/O 11/17/17 11/17/17 11/17/17 11/18/17 11/18/17 11/18/17 07:00 15:00 23:00 07:00 15:00 23:00 Intake Total 240 ml 840 ml 240 ml Output Total 2200 ml 1750 ml 3200 ml Balance -1960 ml -910 ml -2960 ml Intake Oral 240 ml 840 ml 240 ml Output Urine Total 1100 ml 900 ml 2200 ml Drainage Total 1100 ml 850 ml 1000 ml # Bowel Movements 2 2 0 Result Diagram: 11/18/1733111/18/17331 Objective Remarks RLE: +vac. good seal. good cap refill distally Assessment & Plan Assessment and Plan 1) Right Leg Infection s/p I&D with vac placement - POD 0 -vac settings: 125mmHg, low, 10min soak at 50mL, 2hr suction time -plan for repeat I&D next week. -micofungin added to Abx soak Gigi Rodríguez/[employer] PA Nov 18, 2017 14:47
[2017-11-18] MEDS: LACTATED RINGER'S 1000 ML INJ 1,000 ML IV SCH (15:00)
[2017-11-18] MEDS ORDERED: *morphine SULFATE 8 MG/ML PERIprocedure ONLY ONE (15:06)
--- NOTE | 2017-11-18 15:46 | PQ ---
Physician Query Response Document PATIENT: SUSAN JOINER : 1975 ADMIT DATE: 11/08/2017 10:41 PM DISCH DATE: RESPONDING PROVIDER #: JBianchi QUERY TEXT: Debridement Type Based on your medical judgment, can you further clarify the precise nature, depth, extent, and/or met hods of wound debridement utilized in this case, such as: --EXCISIONAL debridement --NON-EXCISIONAL debridement --Other debridement --Other Specify Based on your medical judgment, can you further clarify the specific structures debrided such as: --Skin --Subcutaneous tissue --Fascia --Muscle --Other Specify The patient's Clinical Indicators include: OPERATION: DATE OF SURGERY: 11/09/2017 Incision and drainage, irrigation and debridement of right hip abscess with placement of Vac dressing. fairly deep We opened the cavity about 6 cm. We then irrigate copiously, some necrotic debris is debrided of deep subcutaneous tissue along the muscle edge and fascia which is removed. Query created by: Jody sEcobar on 11/15/2017 10:33 AM RESPONSE TEXT: An excisional debridement was performed using sharp instruments scissors and the electrocautery devic e involving skin and subcutaneous tissue fascia and portions of muscle of the right hip and gluteal r egion. Electronically signed by: Susan Campos MD 11/18/2017 3:42 PM
[2017-11-18] MEDS ORDERED: *RESP: ALBUTEROL 2.5 MG/3 ML NEB (PRN) PERIprocedural Use ONLY NEB ONE (16:13)
[2017-11-19] VITALS (15 sets, daily range): BP systolic 100–124; BP diastolic 53–76; PULSE 75–87; RESP 18–27; TEMP 97.5–98.7; O2SAT 97–100
[2017-11-19] MEDS: LACTATED RINGER'S 1000 ML INJ 1,000 ML IV SCH ×3 (01:00→20:44)
[2017-11-19] MEDS: HYDROmorphone HCL PF 2 MG/ML VIAL IV PUSH PRN (02:06)
[2017-11-19] MEDS: CHLORHEXIDINE GLUCONATE 2 % 1 PACK (2 CLOTHS) TOP SCH (03:48)
[2017-11-19 04:06] LABS: HEMATOCRIT 25.2 % (39.0-51.0); HEMOGLOBIN 8.1 GM/DL (13.0-17.0); MEAN CELL VOLUME 85.1 FL (80.0-100.0); MEAN CORPUSCULAR HEMOGLOBIN 27.2 PG (27.0-34.0); MEAN CORPUSCULAR HGB CONC 31.9 % (32.0-36.0); MEAN PLATELET VOLUME 8.5 FL (7.0-11.0); PLATELET COUNT 246 TH/MM3 (150-450); RED BLOOD COUNT 2.96 MIL/MM3 (4.50-5.90); RED CELL DISTRIBUTION WIDTH 18.7 % (11.6-17.2); WHITE BLOOD COUNT 43.1 TH/MM3 (4.0-11.0)
[2017-11-19] MEDS: NYSTATIN 100,000 UNIT/GM CREAM 15 GM TOPICAL SCH ×3 (04:36→18:00)
[2017-11-19] MEDS: METRONIDAZOLE 500 MG/100 ML ISONTONIC SOLN IV SCH ×3 (04:36→20:44)
[2017-11-19 04:54] LABS: BICARBONATE 29.2 MEQ/L (21.0-32.0); CALCIUM 7.6 MG/DL (8.5-10.1); CREATININE 0.65 MG/DL (0.60-1.30)
[2017-11-19] MEDS: VALPROATE INJ 500 MG in SODIUM CHLORIDE 0.9% INJ 100 ML IV SCH ×3 (05:02→22:28)
[2017-11-19 06:06] LABS: BANDS 4 % (0-6); LYMPHOCYTES 2 % (9-44); MONOCYTES 2 % (0-8); NEUTROPHIL # MANUAL DIFF 41.4 TH/MM3 (1.8-7.7); POLYS (SEG NEUTROPHILS) 92 % (16-70); TARGET CELLS 1+ (NORMAL)
--- NOTE | 2017-11-19 07:22 | PD.ORT.PN ---
Subjective Subjective Remarks sleepy Objective Vitals Vital Signs Date Time Temp Pulse Resp B/P (MAP) Pulse Ox O2 Delivery O2 Flow Rate FiO2 11/19/17 06:00 78 11/19/17 04:00 78 11/19/17 04:00 97.5 78 24 100/55 (70) 99 11/19/17 02:00 86 11/19/17 00:00 98.0 86 22 108/57 (74) 98 11/19/17 00:00 86 11/18/17 22:00 88 11/18/17 21:30 98 Partial Rebreather 11/18/17 20:00 98.2 88 22 95/49 (64) 100 11/18/17 20:00 88 11/18/17 19:00 100 Non-Rebreather 11/18/17 18:00 92 11/18/17 16:15 97 20 115/58 (77) 97 Partial Non-Rebreather 10 11/18/17 16:10 93 Partial Rebreather 15.00 11/18/17 16:10 93 Partial Rebreather 15 11/18/17 16:00 97 20 119/58 (78) 97 11/18/17 16:00 90 11/18/17 16:00 98.4 85 21 111/56 (74) 100 11/18/17 15:52 100 50 11/18/17 15:45 94 20 119/58 (78) 95 Mechanical Ventilator 50 11/18/17 15:30 84 20 112/59 (76) 93 Mechanical Ventilator 50 11/18/17 15:15 85 20 108/58 (75) 100 Mechanical Ventilator 50 11/18/17 15:00 89 20 114/58 (76) 100 Mechanical Ventilator 50 11/18/17 14:45 100 100 18 14:42 97.7 93 20 105/50 (68) 100 Mechanical Ventilator 50 11/18/17 12:47 99 23 123/57 (79) 98 11/18/17 11:59 100 Partial Non-Rebreather 8 11/18/17 11:57 94 11/18/17 11:57 99.0 94 24 127/58 (81) 100 11/18/17 10:00 89 11/18/17 08:00 98.2 90 21 109/55 (73) 100 11/18/17 08:00 91 11/18/17 07:23 98 Partial Rebreather 12.00 I/O 11/18/17 11/18/17 11/18/17 11/19/17 11/19/17 11/19/17 07:00 15:00 23:00 07:00 15:00 23:00 Intake Total 240 ml 900 ml 1280 ml Output Total 3200 ml 1050 ml 925 ml 2050 ml Balance -2960 ml -150 ml -925 ml -770 ml Intake Oral 240 ml 360 ml IV Total 900 ml 920 ml Output Urine Total 2200 ml 1000 ml 1200 ml Drainage Total 1000 ml 925 ml 850 ml Estimated Blood Loss 50 ml # Bowel Movements 0 1 2 Result Diagram: 11/19/17 0342 11/19/17 0342 Objective Remarks RLE: +vac. good seal. good cap refill distally, moves toes R leg. No tenderness R calf Assessment & Plan Assessment and Plan 1) Right Leg Infection s/p I&D with vac placement - POD 2 -vac settings: 125mmHg, low, 10min soak at 50mL, 2hr suction time -plan for repeat I&D next week. -micofungin added to Abx soak 2) Dr. Ordonez team will follow up in next couple days Jorge L Champagne MD Nov 19, 2017 07:22
[2017-11-19] MEDS: CHLORHEXIDINE 0.12% (ORAL KIT) 15 ML CUP MT SCH ×2 (08:00→20:00)
--- NOTE | 2017-11-19 08:00 | HHI.CCPN ---
Subjective Remarks/Hospital Course 41 year old male presents for evaluation of difficulty walking, generalized weakness that began earlier today. The patient arrives out in triage with a blood pressure systolic in the 70s. According to the patient's mother he has not been well since July. She reports that he was seen at another emergency department related to back and hip pain at that time. The patient at that time was also diagnosed with a fecal impaction and severe constipation. He has been since then seen by a overhead irrigator. He was placed on a bowel regimen to help with the constipation, however his mother reports that he's been having difficulty maintaining it. The patient since July has been incontinent of stool and intermittently incontinent of urine. The stool is brown in color. The patient has a diagnosis of schizoaffective disorder and is a poor historian. His mother reports that he has a history of being diagnosed with a nerve problem involving the right leg and since Tuesday he has had swelling of the right leg. He reports having abdominal pain down in bilateral lower quadrants of the abdomen. He reports having nausea. They deny him having any known recent fevers, worsening cough or congestion, neck pain, chest pain, shortness of breath, weakness of his upper extremities, numbness or tingling of his upper extremities. The patient does however report having weakness of bilateral lower extremities with pain/sharp pains that shoot down into the right leg. The CT scan obtained in the emergency department shows abnormal appearance of the soft tissue of the proximal thigh and the gluteal region with fluid and gas tracking between the rectus muscle in the anterior thigh muscle. The combination of fluid and gas suggest either an infectious or necrotic process. 11/09: Ongoing resuscitation from sepsis due to right thigh abscess, extends to gluteal region, possible bone involvement? Urine acceptable. 11/10: S/P debridement right thigh abscess and wound vac. Septic behavior. Continue ventilator support, back to OR tomorrow. 11/11: No events over the night. Patient remains intubated and sedated. No pressors. Tmax 101.5, I/O 1950/2100. No family at bedside. 11/12: Hb low yesterday evening, received 2 units PRBC. Decreasing sedation to better assess mental status. No pressors. Good urine output. Tmax 100.3. 11/13: Few rhonchi but lungs generally clear - will try to extubate. 11/14: Extubated 11/13 and breathing comfortably. Small left effusion. IV is D5W but sodium still elevated. DVT prophylaxis held for OR. 11/15: Worsening sepsis, WBC increased to 23,400. Wound cx from 11/09/17 also growing yeast. I will start micafungin 150 mg daily, first dose stat. Discussed with ID Dr. Upton- send blood cultures. Also sodium noted to be climbing today 160. Increased D5W to 200 ML per hour and check BMP 2 PM 11/16: Right thigh remains tense. Micafungin started for wound culture growing [place]e. CT of the right lower extremity shows extensive fluid surrounding the quadriceps muscle as air within the collection suspicious for abscess. Case was discussed extensively with Dr. Campos and the surgical team yesterday. OR with general surgery, ortho today. Receiving 2 units of PRBC. 11/17: Continuing septic picture. Hemodynamics stable. Plan for wound exploration by Orthopedics tomorrow. Continue to push nutrition. 11/18: Continued smoldering septic picture. Wound exploration planned for today. Patient is stable for procedure. Excessive secretions remain problematic. 11/19: Extensive debridement accomplished 11/18 including evacuation of cloudy fluid from the right knee joint. Vac dressing applied. Objective Vital Signs Date Time Temp Pulse Resp B/P (MAP) Pulse Ox O2 Delivery O2 Flow Rate FiO2 11/19/17 06:00 78 11/19/17 04:00 97.5 24 100/55 (70) 99 11/18/17 21:30 Partial Rebreather 11/18/17 16:15 10 11/18/17 15:52 50 Intake and Output 11/19/17 11/19/17 11/20/17 08:00 16:00 00:00 Intake Total 1280 ml Output Total 2050 ml Balance -770 ml Result Diagram: 11/19/17 0342 11/19/17 0342 Imaging Last 24 hours Impressions Lower Extremity Ultrasound 11/08/172011 Signed Impressions: Service Date/Time: Wednesday, November 08, 2017 20:41 - CONCLUSION: 1. Negative for deep venous thrombosis. There are mildly enlarged right inguinal lymph nodes. Bertrand Smalls MD Chest X-Ray 11/08/172011 Signed Impressions: Service Date/Time: Wednesday, November 08, 2017 21:10 - CONCLUSION: 1. Subsegmental airspace disease right lung base. Finding may represent a small bronchopneumonia. Bertrand Smalls MD Abdomen/Pelvis CT 11/08/172011 Signed Impressions: Service Date/Time: Wednesday, November 08, 2017 22:54 - CONCLUSION: 1. Abnormal appearance of the soft tissues of the proximal thigh and gluteal region with fluid and gas tracking between the rectus muscles and the anterior thigh muscles. No focal abnormal areas of enhancement. The combination of fluid and gas suggests either an infectious or necrotic process. 2. Nonobstructing small calcified stone mid pole left kidney and multiple left renal cysts. 3. Small bilateral pleural effusions. Jace Bird MD Objective Remarks General - middle age gentleman, remains ill appearing. HEENT - pupils are equal, reactive, sclerae are anicteric, neck is supple, airway widely patent. CV - regular heart sounds, no murmurs Chest - scattered coarse breath sounds b/l, good air entry, no wheezes, copious secretions persist. Abdomen soft, non-tender, non-distended, BS present Extremities - 2+ edema of the right lower extremity/foot, 1+ edema of the left lower extremity. Diffuse swelling and redness over the right thigh anteriorly extending from the hip to below right knee, wound vac over the right hip, whole right thigh remains tender to touch Neuro - pupils equal, reactive, follows commands, moves 4 limbs with 5/5. Conversant but confused. A/P Assessment and Plan ASSESSMENT: 1. Severe sepsis secondary thigh abscess/OM s/p I&D with wound vac placement ( due to mixed clara, rosalee) 2. Viridans strep and CoNS bacteremia 3. Sacral OM 4. Hyperchloremic hypernatremia 5. Schizoaffective disorder 6. Acute respiratory failure - now on minimal FiO2 requirements 7. Anemia requiring transfusion 8. Infected right knee joint PLAN: 1. Continue micafungin 150 mg daily for yeast in wound culture, follow up fungal blood cultures, adjust per ID service. 2. Antibiotics per ID (Ceftriaxone IV, oral Flagyl) 3. CT of the right lower extremity concerning for abscess. Plan for OR with general surgery and ortho today.. 4. Transfused 2 units PRBC. 5. Free water replacement with half normal saline bolus, continue D5W at 75 ML per hour 6. FM O2. IS 7. Continue psych meds. Psychiatry to assist with medication 8. On Depakote and Risperidone 9. DVT prophylaxis, GI prophylaxis 10. Tube feeds with free water, if fails swallow again Overall impression: Remains critically ill with ongoing sepsis, right thigh with abscess formation white count increasing to 45,000. Will supplement nutrition. Await new cultures. Tariq Garcia MD Nov 19, 2017 07:59
[2017-11-19] MEDS: FAMOTIDINE 20 MG/2 ML VIAL IV PUSH SCH ×2 (09:00→20:44)
[2017-11-19] MEDS: SODIUM CHLORIDE 0.9% FLUSH 10 ML FLUSH IV FLUSH SCH ×2 (09:00→20:44)
[2017-11-19] MEDS: MICAFUNGIN INJ 150 MG in SODIUM CHLORIDE 0.9% INJ 100 ML IV SCH (09:04)
[2017-11-19] MEDS: ARIPiprazole 5 MG TAB PO SCH (09:04)
[2017-11-19] MEDS: hydrOXYzine HCL 50 MG TAB PO SCH ×2 (09:04→20:44)
[2017-11-19] MEDS: cefTRIAXone INJ 2,000 MG in SODIUM CHLORIDE 0.9% INJ 100 ML IV SCH (09:04)
[2017-11-19] MEDS: risperiDONE ODT 3 MG TAB PO SCH ×2 (09:05→20:44)
[2017-11-19] MEDS: DIVALPROEX SODIUM E.R. 500 MG TAB PO SCH ×2 (09:05→20:44)
[2017-11-19] MEDS: DEXTROSE 5% IN WATE 1000ML INJ 1,000 ML IV SCH (11:03)
[2017-11-19] MEDS: VANCOMYCIN INJ 1,500 MG in SODIUM CHLORID 0.9% 500 ML INJ 500 ML IV SCH (14:30)
--- NOTE | 2017-11-19 14:44 | HHI.IDPN ---
Subjective Subjective Remarks is a 41 y/o CM with PMHx of Schizoaffective disorder on Haldol IM injections in bilateral buttocks. Patient reports getting these as outpatient by unknown doctor (different doctor each time per patient). Approx 1 month back after he received his last Haldol IM shot in right buttock patient noticed pain and swelling and decreased range of motion. Patient continued to receive Haldol shots in left buttock due to pain in right buttock. Patient reports his ability to move around has declined since last 1 week and he needs help with ADL phuong dressing himself due to significant pain on right lower extremity. Patient reports fevers chills and night sweats for the last 1 week prior to admission and significant worsening pain and swelling of his right lower extremity. Patient's past medical history is also significant for right dorsum of the foot marsh as a child as well as neuropathy. Per review of records it appears the patient's mother has reported that he hasn't been feeling well since July and has presented to another emergency department related to back and hip pain. The patient was diagnosed with fecal impaction and severe constipation was seen by spanish literature professor. Patient reports that he was on a bowel regimen to help with her constipation and that has been a challenge to maintain continence. Patient has had incontinence of stool and intermittently incontinence of urine since July. With this background patient presents to the emergency department for evaluation of difficulty walking, generalized weakness, weight loss loss of appetite. Reportedly while in the triage area his blood pressure was in the 70s systolic. Patient also reported abdominal pain in the lower quadrants radiating to his bilateral lower extremity but more so on the right. Patient reported nausea decrease in appetite and loss of about 20 pound weight in the last 1 month. Patient denies any recent intravenous drug abuse. Patient does endorse to receiving intramuscular Haldol in bilateral buttocks. The last right buttock Haldol injection was approximately 1 month back. Patient reports having weakness of bilateral lower extremities more so on the right especially because of sharp shooting pains down his right leg. In the emergency department patient received a total of 4 L of IV fluids as a part of severe sepsis workup and management. Cultures drawn at admission are currently pending. A CT scan of the abdomen showed appearance of soft tissue mass of the proximal thigh and gluteal region with fluid and gas tracking down the rectus muscle into the anterior thigh muscle. This is concerning for infectious or necrotic process. Infectious disease consulted for evaluation and management of severe sepsis, right buttock abscess possible osteomyelitis. Notes reviewed Initially had right thigh abscess and has developed progression of the infection to the right pelvis and hip as well as all the way to the right knee He has had multiple debridement procedures, the last one done in November 18 No new cultures from the last 2 surgeries Initial culture December 10 with Escherichia coli, strep vaginosis, and mixed anaerobes, as well as Paz albicans Cultures from November 16 with Paz albicans He is complaining of pain Blood pressure is okay No fever Has a wound VAC to the right lower extremity His WBC had gone up to 43,000 Antibiotics Current Medications Rocephin Flagyl Micafungin Vancomycin Medications (Trade) Dose Ordered Sig/Mega Route Start Time Stop Time Status Last Admin (Depakote Dr) 500 mg BID PO 11/09/17 09:00 Future Hold 11/09/17 09:22 (Atarax) 50 mg BID PO 11/09/17 09:00 11/19/17 09:04 (risperDAL) 3 mg DAILY PO 11/09/17 09:00 Future Hold 11/13/17 08:02 (NS Flush) 2 ml UNSCH PRN IV FLUSH 11/08/17 23:15 (NS Flush) 2 ml BID IV FLUSH 11/09/17 09:00 11/19/17 09:00 (Tylenol) 650 mg Q6H PRN PO 11/08/17 23:15 11/11/17 04:42 (Pepcid Inj) 20 mg Q12HR IV PUSH 11/09/17 09:00 11/19/17 09:00 (Zofran Inj) 4 mg Q6H PRN IV PUSH 11/08/17 23:15 (Restoril) 15 mg HS PRN PO 11/08/17 23:15 (Duoneb Neb) 1 ampule Q2HR NEB PRN INH 11/08/17 23:15 11/18/17 03:17 Miscellaneous Information 1 Q361D XX 11/08/17 23:15 11/08/17 01:00 (Chlorhexidine 2% Cloth) Taper DAILY@04 TOP 11/09/17 04:00 11/05/18 03:59 (Chlorhexidine 2% Cloth) 3 pack UNSCH PRN TOP 11/08/17 23:15 (Peridex 0.12% Liq) 15 ml BID@08,20 MT 11/09/17 20:00 11/19/17 08:00 (Depakene Liq) 500 mg BID OG-TUBE 11/09/17 23:00 Future Hold 11/13/17 08:02 Dextrose 1,000 ml @ 75 mls/hr [id number] IV 11/12/17 16:45 11/19/17 11:03 (Dilaudid Pf Inj) 1 mg Q3H PRN IV PUSH 11/13/17 16:00 11/19/17 02:06 (risperDAL M-TAB) 3 mg Q12HR PO 11/13/17 21:00 11/19/17 09:05 Valproate Sodium 500 mg/Sodium Chloride 105 ml @ 105 mls/hr Q8HR IV 11/13/17 22:00 11/19/17 14:28 Ceftriaxone Sodium 2000 mg/ Sodium Chloride 100 ml @ 200 mls/hr Q24H IV 11/14/17 09:00 11/19/17 09:04 Potassium Chloride 100 ml @ 50 mls/hr Q2H PRN IV 11/14/17 14:00 Potassium Chloride 100 ml @ 50 mls/hr Q2H PRN IV 11/14/17 14:00 11/15/17 00:47 (K-Lyte Cl Eff) 50 meq UNSCH PRN PO 11/14/17 14:00 Potassium Chloride 100 ml @ 25 mls/hr UNSCH PRN IV 11/14/17 14:00 Potassium Chloride 100 ml @ 50 mls/hr Q2H PRN IV 11/14/17 14:00 11/15/17 23:08 Magnesium Sulfate 4 gm/Sodium Chloride 100 ml @ 50 mls/hr UNSCH PRN IV 11/14/17 14:00 (Mag-Ox) 800 mg UNSCH PRN PO 11/14/17 14:00 Magnesium Sulfate 2 gm/Sodium Chloride 100 ml @ 50 mls/hr UNSCH PRN IV 11/14/17 14:00 (K-Phos) 2,000 mg Q4H PRN PO 11/14/17 14:00 Sodium Phosphate 30 mmol/Sodium Chloride 250 ml @ 42 mls/hr UNSCH PRN IV 11/14/17 14:00 (K-Phos) 2,000 mg UNSCH PRN PO/TUBE 11/14/17 14:00 Potassium Phosphate 30 mmol/ Sodium Chloride 260 ml @ 42 mls/hr UNSCH PRN IV 11/14/17 14:00 Metronidazole 100 ml @ 100 mls/hr Q8HR IV 11/14/17 16:00 11/19/17 14:29 Micafungin Sodium 150 mg/Sodium Chloride 100 ml @ 100 mls/hr Q24H IV 11/15/17 09:00 11/19/17 09:04 (Mycostatin Cream) 1 applic Q6HR TOPICAL 11/15/17 18:00 11/19/17 12:00 Pharmacy Profile Note 0 ml @ 0 mls/hr UNSCH OTHER 11/15/17 17:15 Vancomycin HCl 1500 mg/Sodium Chloride 515 ml @ 257.5 mls/ hr Q12H IV 11/16/17 12:00 11/18/17 23:00 (Depakote Er) 500 mg BID PO 11/17/17 14:45 11/19/17 09:05 (Abilify) 5 mg DAILY PO 11/17/17 14:45 11/19/17 09:04 Lactated Ringer's 1,000 ml @ 100 mls/hr Q10H IV 11/18/17 15:00 11/18/17 15:00 Miscellaneous Information ALL NURSING DEPARTME... UNSCH PRN .XX 11/18/17 14:45 11/19/17 14:44 Ceftriaxone IV Vanco IV Flagyl IV Micafungin IV Lines Line sites with no evidence of infection. Past Medical History Neuropathy involving the right leg h/o marsh right foot dorsum as a child. Schizoaffective disorder, Depressions Anxiety Past Surgical History None per patient. Allergies: Coded Allergies: diphenhydramine (Verified Adverse Reaction, Unknown, 11/08/17) Objective . Vital Signs Date Time Temp Pulse Resp B/P (MAP) Pulse Ox O2 Delivery O2 Flow Rate FiO2 11/19/17 12:00 98.5 81 27 108/56 (73) 99 11/19/17 12:00 79 11/19/17 10:00 85 11/19/17 08:05 98 Partial Rebreather 11/19/17 08:00 97.9 75 23 106/53 (70) 98 11/19/17 08:00 75 11/19/17 07:00 100 Non-Rebreather 11/19/17 06:00 78 11/19/17 04:00 78 11/19/17 04:00 97.5 78 24 100/55 (70) 99 11/19/17 02:00 86 11/19/17 00:00 98.0 86 22 108/57 (74) 98 11/19/17 00:00 86 11/18/17 22:00 88 11/18/17 21:30 98 Partial Rebreather 11/18/17 20:00 98.2 88 22 95/49 (64) 100 11/18/17 20:00 88 11/18/17 19:00 100 Non-Rebreather 11/18/17 18:00 92 11/18/17 16:15 97 20 115/58 (77) 97 Partial Non-Rebreather 10 11/18/17 16:10 93 Partial Rebreather 15.00 11/18/17 16:10 93 Partial Rebreather 15 11/18/17 16:00 97 20 119/58 (78) 97 11/18/17 16:00 90 11/18/17 16:00 98.4 85 21 111/56 (74) 100 11/18/17 15:52 100 50 11/18/17 15:45 94 20 119/58 (78) 95 Mechanical Ventilator 50 11/18/17 15:30 84 20 112/59 (76) 93 Mechanical Ventilator 50 11/18/17 15:15 85 20 108/58 (75) 100 Mechanical Ventilator 50 11/18/17 15:00 89 20 114/58 (76) 100 Mechanical Ventilator 50 11/18/17 14:45 100 100 11/18/17 14:42 97.7 93 20 105/50 (68) 100 Mechanical Ventilator 50 . Laboratory Tests Test 11/18/17 03:32 11/19/17 03:42 White Blood Count 37.7 TH/MM3 43.1 TH/MM3 Red Blood Count 3.33 MIL/MM3 2.96 MIL/MM3 Hemoglobin 9.0 GM/DL 8.1 GM/DL Hematocrit 27.9 % 25.2 % Mean Corpuscular Volume 83.8 FL 85.1 FL Mean Corpuscular Hemoglobin 27.1 PG 27.2 PG Mean Corpuscular Hemoglobin Concent 32.3 % 31.9 % Red Cell Distribution Width 18.0 % 18.7 % Platelet Count 243 TH/MM3 246 TH/MM3 Mean Platelet Volume 8.5 FL 8.5 FL CBC Comment AUTO DIFF AUTO DIFF Differential Total Cells Counted 100 100 Neutrophils % (Manual) 96 % 92 % Band Neutrophils % 1 % 4 % Lymphocytes % 2 % 2 % Monocytes % 1 % 2 % Neutrophils # (Manual) 36.6 TH/MM3 41.4 TH/MM3 Differential Comment FINAL DIFF MANUAL FINAL DIFF MANUAL Platelet Estimate NORMAL NORMAL Platelet Morphology Comment NORMAL NORMAL Basophilic Stippling FAINT Target Cells 1+ Laboratory Tests Test 11/18/17 03:32 11/19/17 03:42 Blood Urea Nitrogen 12 MG/DL 14 MG/DL Creatinine 0.58 MG/DL 0.65 MG/DL Random Glucose 97 MG/DL 126 MG/DL Calcium Level 7.8 MG/DL 7.6 MG/DL Sodium Level 147 MEQ/L 147 MEQ/L Potassium Level 3.6 MEQ/L 4.2 MEQ/L Chloride Level 112 MEQ/L 114 MEQ/L Carbon Dioxide Level 30.2 MEQ/L 29.2 MEQ/L Anion Gap 5 MEQ/L 4 MEQ/L Estimat Glomerular Filtration Rate 156 ML/MIN 137 ML/MIN Imaging Lower Extremity CT 11/15/17 0000 Signed Impressions: Service Date/Time: Wednesday, November 15, 2017 13:22 - CONCLUSION: Extensive fluid surrounding the quadriceps musculature of the right thigh as well as air within the collection anteriorly and laterally which raises the possibility of abscess/infection. Fluid is also noted extending into the region of the gluteus muscles on the right. Diffuse subcutaneous edema the right thigh is noted. Compartment syndrome should be ruled out. Jez Chowdhury MD Abdomen/Pelvis CT 11/15/17 0000 Signed Impressions: Service Date/Time: Wednesday, November 15, 2017 13:22 - CONCLUSION: The abnormal soft tissue mass now has compartmentalized fluid collections and absence of air in the right soft tissues of thigh and gluteal region. This probably represents improving inflammatory or infectious process such as abscess. Small bilateral pleural effusions persist with a new consolidation with air bronchogram in the left lower lobe. Ascitic fluid suggested in the pelvis Silvio Laguerre MD Chest X-Ray 11/14/17 0600 Signed Impressions: Service Date/Time: Tuesday, November 14, 2017 04:22 - CONCLUSION: 1. Left basilar airspace disease similar to November 12. Bertrand Smalls MD Lower Extremity Ultrasound 11/08/172011 Signed Impressions: Service Date/Time: Wednesday, November 08, 2017 20:41 - CONCLUSION: 1. Negative for deep venous thrombosis. There are mildly enlarged right inguinal lymph nodes. Bertrand Smalls MD Thoracic Spine MRI 11/08/17 Signed Impressions: Service Date/Time: Wednesday, November 08, 2017 22:01 - CONCLUSION: 1. Small bilateral pleural effusions. 2. No signal abnormalities in the thoracic vertebral bodies and no evidence of focal disc disease. Jace Bird MD Lumbar Spine MRI 11/08/17 0000 Signed Impressions: Service Date/Time: Wednesday, November 08, 2017 22:01 - CONCLUSION: 1. No evidence of lumbar disc disease. 2. Soft tissue abnormality about the right gluteal region suggesting abscess with T2 prolongation and contrast enhancement ; this is incompletely included in the [id number] of the exam. 3. There is also abnormal signal within the marrow of the sacral and coccygeal marrow including contrast enhancement suggesting that the right thigh and gluteal abnormality may extend intraosseous, possibly osteomyelitis. Jace Bird MD Last Impressions Chest X-Ray 11/09/17 0000 Signed Impressions: Service Date/Time: Thursday, November 09, 2017 16:23 - CONCLUSION: Minimal infiltrate left base new from comparison study. Rodrick Ch MD FACR Lower Extremity Ultrasound 11/08/172011 Signed Impressions: Service Date/Time: Wednesday, November 08, 2017 20:41 - CONCLUSION: 1. Negative for deep venous thrombosis. There are mildly enlarged right inguinal lymph nodes. Bertrand Smalls MD Abdomen/Pelvis CT 11/08/172011 Signed Impressions: Service Date/Time: Wednesday, November 08, 2017 22:54 - CONCLUSION: 1. Abnormal appearance of the soft tissues of the proximal thigh and gluteal region with fluid and gas tracking between the rectus muscles and the anterior thigh muscles. No focal abnormal areas of enhancement. The combination of fluid and gas suggests either an infectious or necrotic process. 2. Nonobstructing small calcified stone mid pole left kidney and multiple left renal cysts. 3. Small bilateral pleural effusions. Jace Bird MD Thoracic Spine MRI 11/08/17 0000 Signed Impressions: Service Date/Time: Wednesday, November 08, 2017 22:01 - CONCLUSION: 1. Small bilateral pleural effusions. 2. No signal abnormalities in the thoracic vertebral bodies and no evidence of focal disc disease. Jace Bird MD Lumbar Spine MRI 11/08/17 0000 Signed Impressions: Service Date/Time: Wednesday, November 08, 2017 22:01 - CONCLUSION: 1. No evidence of lumbar disc disease. 2. Soft tissue abnormality about the right gluteal region suggesting abscess with T2 prolongation and contrast enhancement ; this is incompletely included in the [id number] of the exam. 3. There is also abnormal signal within the marrow of the sacral and coccygeal marrow including contrast enhancement suggesting that the right thigh and gluteal abnormality may extend intraosseous, possibly osteomyelitis. Jace Bird MD Physical Exam GENERAL: Awake and interactive, not in respiratory distress. SKIN: Warm and dry, no generalized rash HEAD: Atraumatic. Normocephalic. No temporal or scalp tenderness. EYES: Pupils equal round and reactive. Extraocular motions intact. No scleral icterus. No injection or drainage. ENT: Dry oral mucosa, no nasal discharge NECK: Trachea midline. Supple, nontender, no meningeal signs. CARDIOVASCULAR: HS audible. RESPIRATORY: Diffuse rhonchi bilaterally GASTROINTESTINAL: Abdomen soft, non-tender, nondistended. MUSCULOSKELETAL: RLE with dry dressing from hip to just below the knee. Wound vac in place with bloody drainage. There is some induration and mild erythema noted in the right upper thigh right lower quadrant, as well as in the right leg. There is pitting edema in both feet. NEUROLOGICAL: Awake and alert and interactive. Grossly nonfocal Psych cooperative IV line sites with no e.o infection. Assessment & Plan Remarks Severe sepsis present on admission. Staph coag neg bacteremia: 1 out of 4 bottles likely contaminant. E.coli and Strep, mixed anaerobes (beta lactamase positive) and Paz albicans , right thigh abscess/osteomyelitis, xtending to pelvis/hip and R knee - S/P multiple debridements Schizoaffective disorder receives IM Haldol injections in the buttocks. Lower extremity neuropathy. Weight loss, loss of appetite Leukocytosis, worsening Recommendations: Chnage Rocephin to Cefepime since WBC rising Continue IV flagyl Continue Vanco IV (target 15-20 for osteomyelitis) Continue Micafungin IV( will deescalate based on repeat intra op cultures) Follow CBC Will ask ortho to repeat cultures when he goes for another debridement Follow cultures Monitor progress Spoke with family [place] Noguera MD Nov 19, 2017 14:44
[2017-11-19] MEDS: RESP: ALBUTEROL 2.5 MG/IPRATROPIUM 0.5 MG NEB (PRN) INH (16:07)
[2017-11-19] MEDS: CEFEPIME INJ 2,000 MG in SODIUM CHLORIDE 0.9% INJ 100 ML IV SCH (17:00)
[2017-11-19] MEDS: TEMAZEPAM 15 MG CAP PO PRN (21:35)
[2017-11-20] VITALS (13 sets, daily range): BP systolic 112–138; BP diastolic 61–71; PULSE 66–90; RESP 18–41; TEMP 98.1–99.7; O2SAT 93–98
[2017-11-20] MEDS: DEXTROSE 5% IN WATE 1000ML INJ 1,000 ML IV SCH ×2 (00:23→13:43)
[2017-11-20] MEDS: NYSTATIN 100,000 UNIT/GM CREAM 15 GM TOPICAL SCH ×4 (00:46→17:54)
[2017-11-20] MEDS: VANCOMYCIN INJ 1,500 MG in SODIUM CHLORID 0.9% 500 ML INJ 500 ML IV SCH (00:46)
[2017-11-20] MEDS: CEFEPIME INJ 2,000 MG in SODIUM CHLORIDE 0.9% INJ 100 ML IV SCH ×3 (02:29→17:53)
[2017-11-20] MEDS: CHLORHEXIDINE GLUCONATE 2 % 1 PACK (2 CLOTHS) TOP SCH ×2 (04:00→20:12)
[2017-11-20 04:58] LABS: AUTOMATED NEUTROPHIL # 16.2 TH/MM3 (1.8-7.7); BASOPHIL % 0.3 % (0.0-2.0); EOSINOPHIL % 0.1 % (0.0-4.0); HEMATOCRIT 25.2 % (39.0-51.0); HEMOGLOBIN 8.3 GM/DL (13.0-17.0); LYMPH % 2.6 % (9.0-44.0); LYMPHOCYTE # 0.5 TH/MM3 (1.0-4.8); MEAN CORPUSCULAR HEMOGLOBIN 27.2 PG (27.0-34.0); MEAN CORPUSCULAR HGB CONC 32.7 % (32.0-36.0); MEAN PLATELET VOLUME 8.4 FL (7.0-11.0); MONO % 5.5 % (0.0-8.0); NEUT % 91.5 % (16.0-70.0); PLATELET COUNT 271 TH/MM3 (150-450); RED BLOOD COUNT 3.04 MIL/MM3 (4.50-5.90); RED CELL DISTRIBUTION WIDTH 18.4 % (11.6-17.2); WHITE BLOOD COUNT 17.7 TH/MM3 (4.0-11.0)
[2017-11-20 05:50] LABS: BICARBONATE 29.4 MEQ/L (21.0-32.0); CALCIUM 7.9 MG/DL (8.5-10.1); CREATININE 0.75 MG/DL (0.60-1.30)
[2017-11-20] MEDS: VALPROATE INJ 500 MG in SODIUM CHLORIDE 0.9% INJ 100 ML IV SCH ×3 (06:00→22:00)
[2017-11-20] MEDS: METRONIDAZOLE 500 MG/100 ML ISONTONIC SOLN IV SCH ×3 (06:48→21:28)
[2017-11-20] MEDS: LACTATED RINGER'S 1000 ML INJ 1,000 ML IV SCH (07:00)
[2017-11-20] MEDS: CHLORHEXIDINE 0.12% (ORAL KIT) 15 ML CUP MT SCH ×2 (08:00→20:00)
[2017-11-20] MEDS: SODIUM CHLORIDE 0.9% FLUSH 10 ML FLUSH IV FLUSH SCH ×2 (08:30→21:00)
[2017-11-20 08:32] LABS: BANDS 4 % (0-6); LYMPHOCYTES 1 % (9-44); MONOCYTES 4 % (0-8); NEUTROPHIL # MANUAL DIFF 16.8 TH/MM3 (1.8-7.7); POLYS (SEG NEUTROPHILS) 91 % (16-70)
[2017-11-20] MEDS: MICAFUNGIN INJ 150 MG in SODIUM CHLORIDE 0.9% INJ 100 ML IV SCH (08:36)
[2017-11-20] MEDS: DIVALPROEX SODIUM E.R. 500 MG TAB PO SCH ×2 (08:37→21:28)
[2017-11-20] MEDS: risperiDONE ODT 3 MG TAB PO SCH ×2 (08:37→21:28)
[2017-11-20] MEDS: POTASSIUM CHLOR 20 MEQ PREMIX 100 ML IV PRN ×3 (08:37→17:53)
[2017-11-20] MEDS: hydrOXYzine HCL 50 MG TAB PO SCH ×2 (08:37→21:29)
[2017-11-20] MEDS: FAMOTIDINE 20 MG/2 ML VIAL IV PUSH SCH ×2 (08:39→21:28)
[2017-11-20] MEDS: ARIPiprazole 5 MG TAB PO SCH (08:40)
--- NOTE | 2017-11-20 09:10 | HHI.PR ---
Addendum to Inpatient Note Addendum Reason: Additional Documentation Additional Information Cultures reviewed Source control achieved and WBC trending down. No fevers on chart review. Continue Cefepime IV for now. WBC increase likely post op. Source control now achieved. Will deescalate to Ceftriaxone early next week. Continue Flagyl (beta lactam positive anaerobes) Start Diflucan IV DC Vanco IV (no MRSA or resistant strep) DC Micafungin IV María Upton MD Nov 20, 2017 09:10
--- NOTE | 2017-11-20 09:26 | HHI.CCPN ---
Subjective Remarks/Hospital Course 41 year old male presents for evaluation of difficulty walking, generalized weakness that began earlier today. The patient arrives out in triage with a blood pressure systolic in the 70s. According to the patient's mother he has not been well since July. She reports that he was seen at another emergency department related to back and hip pain at that time. The patient at that time was also diagnosed with a fecal impaction and severe constipation. He has been since then seen by a parachute folder. He was placed on a bowel regimen to help with the constipation, however his mother reports that he's been having difficulty maintaining it. The patient since July has been incontinent of stool and intermittently incontinent of urine. The stool is brown in color. The patient has a diagnosis of schizoaffective disorder and is a poor historian. His mother reports that he has a history of being diagnosed with a nerve problem involving the right leg and since Tuesday he has had swelling of the right leg. He reports having abdominal pain down in bilateral lower quadrants of the abdomen. He reports having nausea. They deny him having any known recent fevers, worsening cough or congestion, neck pain, chest pain, shortness of breath, weakness of his upper extremities, numbness or tingling of his upper extremities. The patient does however report having weakness of bilateral lower extremities with pain/sharp pains that shoot down into the right leg. The CT scan obtained in the emergency department shows abnormal appearance of the soft tissue of the proximal thigh and the gluteal region with fluid and gas tracking between the rectus muscle in the anterior thigh muscle. The combination of fluid and gas suggest either an infectious or necrotic process. 11/09: Ongoing resuscitation from sepsis due to right thigh abscess, extends to gluteal region, possible bone involvement? Urine acceptable. 11/10: S/P debridement right thigh abscess and wound vac. Septic behavior. Continue ventilator support, back to OR tomorrow. 11/11: No events over the night. Patient remains intubated and sedated. No pressors. Tmax 101.5, I/O 1950/2100. No family at bedside. 11/12: Hb low yesterday evening, received 2 units PRBC. Decreasing sedation to better assess mental status. No pressors. Good urine output. Tmax 100.3. 11/13: Few rhonchi but lungs generally clear - will try to extubate. 11/14: Extubated 11/13 and breathing comfortably. Small left effusion. IV is D5W but sodium still elevated. DVT prophylaxis held for OR. 11/15: Worsening sepsis, WBC increased to 23,400. Wound cx from 11/09/17 also growing yeast. I will start micafungin 150 mg daily, first dose stat. Discussed with ID Dr. Upton- send blood cultures. Also sodium noted to be climbing today 160. Increased D5W to 200 ML per hour and check BMP 2 PM 11/16: Right thigh remains tense. Micafungin started for wound culture growing Rosalee. CT of the right lower extremity shows extensive fluid surrounding the quadriceps muscle as air within the collection suspicious for abscess. Case was discussed extensively with Dr. Campos and the surgical team yesterday. OR with general surgery, ortho today. Receiving 2 units of PRBC. 11/17: Continuing septic picture. Hemodynamics stable. Plan for wound exploration by Orthopedics tomorrow. Continue to push nutrition. 11/18: Continued smoldering septic picture. Wound exploration planned for today. Patient is stable for procedure. Excessive secretions remain problematic. 11/19: Extensive debridement accomplished 11/18 including evacuation of cloudy fluid from the right knee joint. Vac dressing applied. 11/20: Much improved after last debridement. More alert, less toxic appearing. Objective Vital Signs Date Time Temp Pulse Resp B/P (MAP) Pulse Ox O2 Delivery O2 Flow Rate FiO2 11/20/17 08:00 98.3 79 18 127/65 (85) 98 11/20/17 07:00 Nasal Cannula 3.00 11/18/17 15:52 50 Intake and Output 11/20/17 11/20/17 11/21/17 08:00 16:00 00:00 Intake Total 1500 ml Output Total 2750 ml Balance -1250 ml Result Diagram: 11/20/17 0358 11/20/17 0358 Imaging Last 24 hours Impressions Lower Extremity Ultrasound 11/08/172011 Signed Impressions: Service Date/Time: Wednesday, November 08, 2017 20:41 - CONCLUSION: 1. Negative for deep venous thrombosis. There are mildly enlarged right inguinal lymph nodes. Bertrand Smalls MD Chest X-Ray 11/08/172011 Signed Impressions: Service Date/Time: Wednesday, November 08, 2017 21:10 - CONCLUSION: 1. Subsegmental airspace disease right lung base. Finding may represent a small bronchopneumonia. Bertrand Smalls MD Abdomen/Pelvis CT 11/08/172011 Signed Impressions: Service Date/Time: Wednesday, November 08, 2017 22:54 - CONCLUSION: 1. Abnormal appearance of the soft tissues of the proximal thigh and gluteal region with fluid and gas tracking between the rectus muscles and the anterior thigh muscles. No focal abnormal areas of enhancement. The combination of fluid and gas suggests either an infectious or necrotic process. 2. Nonobstructing small calcified stone mid pole left kidney and multiple left renal cysts. 3. Small bilateral pleural effusions. Jace Bird MD Objective Remarks General - middle age gentleman, remains ill appearing. HEENT - pupils are equal, reactive, sclerae are anicteric, neck is supple, airway widely patent. CV - regular heart sounds, no murmurs Chest - scattered coarse breath sounds b/l, good air entry, no wheezes, copious secretions persist. Abdomen soft, non-tender, non-distended, BS present Extremities - 2+ edema of the right lower extremity/foot, 1+ edema of the left lower extremity. Vacs in place. Neuro - pupils equal, reactive, follows commands, moves 4 limbs with 5/5. Conversant, less confused. A/P Assessment and Plan ASSESSMENT: 1. Severe sepsis secondary thigh abscess/OM s/p I&D with wound vac placement ( due to mixed clara, rosalee) 2. Viridans strep and CoNS bacteremia 3. Sacral OM 4. Hyperchloremic hypernatremia 5. Schizoaffective disorder 6. Acute respiratory failure - now on minimal FiO2 requirements 7. Anemia requiring transfusion 8. Infected right knee joint PLAN: 1. Continue micafungin 150 mg daily for yeast in wound culture, follow up fungal blood cultures, adjust per ID service. 2. Antibiotics per ID (Ceftriaxone IV, oral Flagyl) 3. CT of the right lower extremity concerning for abscess. Plan for OR with general surgery and ortho today.. 4. Transfused 2 units PRBC. 5. Free water replacement with half normal saline bolus, continue D5W at 75 ML per hour 6. FM O2. IS 7. Continue psych meds. Psychiatry to assist with medication 8. On Depakote and Risperidone 9. DVT prophylaxis, GI prophylaxis 10. Tube feeds with free water, if fails swallow again Overall impression: Improved general appearance. Will supplement nutrition. Tariq Garcia MD Nov 20, 2017 09:26
[2017-11-20] MEDS: FLUCONAZOLE 400 MG PREMIX BAG 200 ML IV SCH (10:00)
[2017-11-20] MEDS: RESP: ALBUTEROL 2.5 MG/IPRATROPIUM 0.5 MG NEB (PRN) INH (14:49)
[2017-11-21] VITALS (16 sets, daily range): BP systolic 114–137; BP diastolic 58–71; PULSE 79–89; RESP 18–37; TEMP 97.6–99.4; O2SAT 91–98
[2017-11-21] MEDS: CEFEPIME INJ 2,000 MG in SODIUM CHLORIDE 0.9% INJ 100 ML IV SCH ×3 (00:06→16:50)
[2017-11-21] MEDS: LACTATED RINGER'S 1000 ML INJ 1,000 ML IV SCH ×5 (02:10→23:00)
[2017-11-21] MEDS: DEXTROSE 5% IN WATE 1000ML INJ 1,000 ML IV SCH ×2 (02:11→16:23)
[2017-11-21] MEDS: NYSTATIN 100,000 UNIT/GM CREAM 15 GM TOPICAL SCH ×4 (05:07→18:00)
[2017-11-21] MEDS: VALPROATE INJ 500 MG in SODIUM CHLORIDE 0.9% INJ 100 ML IV SCH ×3 (05:07→22:58)
[2017-11-21 05:34] LABS: AUTOMATED NEUTROPHIL # 9.1 TH/MM3 (1.8-7.7); BASOPHIL # 0.1 TH/MM3 (0-0.2); BASOPHIL % 0.8 % (0.0-2.0); EOSINOPHIL % 0.1 % (0.0-4.0); HEMATOCRIT 22.7 % (39.0-51.0); HEMOGLOBIN 7.7 GM/DL (13.0-17.0); LYMPH % 5.4 % (9.0-44.0); LYMPHOCYTE # 0.6 TH/MM3 (1.0-4.8); MEAN CELL VOLUME 81.3 FL (80.0-100.0); MEAN CORPUSCULAR HEMOGLOBIN 27.5 PG (27.0-34.0); MEAN CORPUSCULAR HGB CONC 33.8 % (32.0-36.0); MEAN PLATELET VOLUME 7.8 FL (7.0-11.0); NEUT % 84.7 % (16.0-70.0); PLATELET COUNT 275 TH/MM3 (150-450); RED BLOOD COUNT 2.79 MIL/MM3 (4.50-5.90); RED CELL DISTRIBUTION WIDTH 17.9 % (11.6-17.2); WHITE BLOOD COUNT 10.7 TH/MM3 (4.0-11.0)
[2017-11-21 05:51] LABS: AST (GOT) 20 U/L (15-37); BICARBONATE 28.7 MEQ/L (21.0-32.0); BLOOD UREA NITROGEN 14 MG/DL (7-18); CALCIUM 7.9 MG/DL (8.5-10.1); CHLORIDE 111 MEQ/L (98-107); CREATININE 0.72 MG/DL (0.60-1.30); GLOMERULAR FILTRATION RATE 122 ML/MIN (>89); GLUCOSE,RANDOM 129 MG/DL (74-106); SODIUM (NA) 145 MEQ/L (136-145)
[2017-11-21 05:54] LABS: ALKALINE PHOSPHATASE 71 U/L (45-117); ALT (GPT) 10 U/L (12-78); TOTAL BILIRUBIN ADULT 0.4 MG/DL (0.2-1.0); TOTAL PROTEIN 4.9 GM/DL (6.4-8.2)
[2017-11-21] MEDS: METRONIDAZOLE 500 MG/100 ML ISONTONIC SOLN IV SCH ×3 (06:30→22:58)
[2017-11-21] MEDS ORDERED: SUGAMMADEX SODIUM 200 MG/2 ML VIAL IV PUSH ONE (07:01)
--- NOTE | 2017-11-21 07:29 | HHI.CCPN ---
Subjective Remarks/Hospital Course 41 year old male presents for evaluation of difficulty walking, generalized weakness that began earlier today. The patient arrives out in triage with a blood pressure systolic in the 70s. According to the patient's mother he has not been well since July. She reports that he was seen at another emergency department related to back and hip pain at that time. The patient at that time was also diagnosed with a fecal impaction and severe constipation. He has been since then seen by a box spring upholsterer. He was placed on a bowel regimen to help with the constipation, however his mother reports that he's been having difficulty maintaining it. The patient since July has been incontinent of stool and intermittently incontinent of urine. The stool is brown in color. The patient has a diagnosis of schizoaffective disorder and is a poor historian. His mother reports that he has a history of being diagnosed with a nerve problem involving the right leg and since Tuesday he has had swelling of the right leg. He reports having abdominal pain down in bilateral lower quadrants of the abdomen. He reports having nausea. They deny him having any known recent fevers, worsening cough or congestion, neck pain, chest pain, shortness of breath, weakness of his upper extremities, numbness or tingling of his upper extremities. The patient does however report having weakness of bilateral lower extremities with pain/sharp pains that shoot down into the right leg. The CT scan obtained in the emergency department shows abnormal appearance of the soft tissue of the proximal thigh and the gluteal region with fluid and gas tracking between the rectus muscle in the anterior thigh muscle. The combination of fluid and gas suggest either an infectious or necrotic process. 11/09: Ongoing resuscitation from sepsis due to right thigh abscess, extends to gluteal region, possible bone involvement? Urine acceptable. 11/10: S/P debridement right thigh abscess and wound vac. Septic behavior. Continue ventilator support, back to OR tomorrow. 11/11: No events over the night. Patient remains intubated and sedated. No pressors. Tmax 101.5, I/O 1950/2100. No family at bedside. 11/12: Hb low yesterday evening, received 2 units PRBC. Decreasing sedation to better assess mental status. No pressors. Good urine output. Tmax 100.3. 11/13: Few rhonchi but lungs generally clear - will try to extubate. 11/14: Extubated 11/13 and breathing comfortably. Small left effusion. IV is D5W but sodium still elevated. DVT prophylaxis held for OR. 11/15: Worsening sepsis, WBC increased to 23,400. Wound cx from 11/09/17 also growing yeast. I will start micafungin 150 mg daily, first dose stat. Discussed with ID Dr. Upton- send blood cultures. Also sodium noted to be climbing today 160. Increased D5W to 200 ML per hour and check BMP 2 PM 11/16: Right thigh remains tense. Micafungin started for wound culture growing Rosalee. CT of the right lower extremity shows extensive fluid surrounding the quadriceps muscle as air within the collection suspicious for abscess. Case was discussed extensively with Dr. Campos and the surgical team yesterday. OR with general surgery, ortho today. Receiving 2 units of PRBC. 11/17: Continuing septic picture. Hemodynamics stable. Plan for wound exploration by Orthopedics tomorrow. Continue to push nutrition. 11/18: Continued smoldering septic picture. Wound exploration planned for today. Patient is stable for procedure. Excessive secretions remain problematic. 11/19: Extensive debridement accomplished 11/18 including evacuation of cloudy fluid from the right knee joint. Vac dressing applied. 11/20: Much improved after last debridement. More alert, less toxic appearing. 11/21: Tmax 99.7, normotensive. Leukocytosis normalized. Objective Vital Signs Date Time Temp Pulse Resp B/P (MAP) Pulse Ox O2 Delivery O2 Flow Rate FiO2 11/21/17 06:00 82 11/21/17 04:00 98.6 37 133/63 (86) 96 11/20/17 22:00 Nasal Cannula 2.00 11/18/17 15:52 50 Intake and Output 11/21/17 11/21/17 11/22/17 08:00 16:00 00:00 Intake Total 700 ml Output Total 3000 ml Balance -2300 ml Result Diagram: 11/21/1751611/21/17 05 Imaging Last 24 hours Impressions Lower Extremity Ultrasound 11/08/172011 Signed Impressions: Service Date/Time: Wednesday, November 08, 2017 20:41 - CONCLUSION: 1. Negative for deep venous thrombosis. There are mildly enlarged right inguinal lymph nodes. Bertrand Smalls MD Chest X-Ray 11/08/172011 Signed Impressions: Service Date/Time: Wednesday, November 08, 2017 21:10 - CONCLUSION: 1. Subsegmental airspace disease right lung base. Finding may represent a small bronchopneumonia. Bertrand Smalls MD Abdomen/Pelvis CT 11/08/172011 Signed Impressions: Service Date/Time: Wednesday, November 08, 2017 22:54 - CONCLUSION: 1. Abnormal appearance of the soft tissues of the proximal thigh and gluteal region with fluid and gas tracking between the rectus muscles and the anterior thigh muscles. No focal abnormal areas of enhancement. The combination of fluid and gas suggests either an infectious or necrotic process. 2. Nonobstructing small calcified stone mid pole left kidney and multiple left renal cysts. 3. Small bilateral pleural effusions. Jace Bird MD Objective Remarks General - middle age gentleman, remains ill appearing. HEENT - neck is supple, airway widely patent. CV - regular heart sounds, no murmurs. NL S1S2, no JVD Chest - scattered coarse breath sounds b/l, good air entry, no wheezes, cough with plentiful secretions. Abdomen soft, non-tender, non-distended, BS present, no guarding. Extremities - 2+ edema of the right lower extremity/foot, 1+ edema of the left lower extremity. Vacs in place. Neuro - pupils equal, reactive, follows commands, moves 4 limbs with 5/5. Conversant, less confused. A/P Assessment and Plan ASSESSMENT: 1. Severe sepsis secondary thigh abscess/OM s/p I&D with wound vac placement ( due to mixed clara, rosalee) 2. Viridans strep and CoNS bacteremia 3. Sacral OM 4. Hyperchloremic hypernatremia 5. Schizoaffective disorder 6. Acute respiratory failure - now on minimal FiO2 requirements 7. Anemia requiring transfusion 8. Infected right knee joint PLAN: 1. Continue micafungin 150 mg daily for yeast in wound culture, follow up fungal blood cultures, adjust per ID service. 2. Antibiotics per ID (Ceftriaxone IV, oral Flagyl) 3. S/P aggressive debridement right thigh and knee joint 4. Transfused 2 units PRBC. 5. Diet. 6. FM O2. IS 7. Continue psych meds. Psychiatry to assist with medication 8. On Depakote and Risperidone 9. DVT prophylaxis, GI prophylaxis 10. For another wound inspection this week Overall impression: Improved general appearance. Toxicity has resolved. Tariq Garcia MD Nov 21, 2017 07:29
[2017-11-21] MEDS ORDERED: RESP: ALBUTEROL 2.5 MG/3 ML NEB (PRN) ONE (07:38)
[2017-11-21] MEDS ORDERED: KETAMINE HCL 500 MG/5 ML VIAL ONE (07:39)
[2017-11-21] MEDS ORDERED: [UNRECOGNIZED DRUG - OTHER] IRRIGATION SCH (07:45)
[2017-11-21] MEDS ORDERED: TOBRAMYCIN IRRIGATION SCH (07:45)
[2017-11-21] MEDS ORDERED: VANCOMYCIN IRRIGATION SCH (07:45)
[2017-11-21] MEDS ORDERED: MICAFUNGIN IRRIGATION SCH (07:45)
[2017-11-21] MEDS: CHLORHEXIDINE 0.12% (ORAL KIT) 15 ML CUP MT SCH ×2 (08:00→19:32)
--- NOTE | 2017-11-21 08:41 | PD.OP ---
cc: Reynaldo West MD Operative Report Date of Surgery: Nov 21, 2017 Preoperative Diagnosis: Right hip, thigh, and knee infection Postoperative Diagnosis: Procedure: Irrigation and debridement of right hip, right thigh, and right knee Application wound VAC dressing Anesthesia: Gen. Surgeon: Reynaldo West Superintendent Service(s): DEVON Mcfadden PA-C The surgical procedure was assisted by my physician corporate administrative assistant. My P.A. presence was necessary throughout this case for the manipulation and positioning of the surgical extremity. My P.A. was assisting me throughout the duration of this procedure. The skill set of a physician corporate administrative assistant was medically necessary to complete this procedure. During the surgical case the surgical processor was working at the back table and the physician corporate administrative assistant was directly assisting me. Operation and Findings: Patient was seen and examined preoperatively. Patient returns operating room today for scheduled repeat irrigation and debridement. Informed consent was confirmed preoperatively and the operative site was marked. He was brought to the operating room. He was given IV sedation and general anesthesia. He was placed in lateral decubitus position. The right leg and pelvic region were prepped with alcohol, followed by Hibiclens and draped in the usual sterile fashion. At this point attention was turned to the pelvis. The wound and infection tracked up into the sacrum. The skin, subcutaneous tissue, fascia and muscle were sharply debrided. Curettes were used to debride around bone. Soft tissue and muscle were debrided sharply with rongeurs. The thigh was fully explored. There was significant improvement of the infection. Part of the gluteus valerie muscle was excised. Small areas of muscle were also excised. Curettes , rongeurs and scalpel were used to debride necrotic tissue. At this point the knee joint was also opened. Arthrotomy was opened from the lateral incision. The knee joint appeared to be clean at this time with no purulent drainage. The knee joint was thoroughly irrigated as well. Small areas of fascia from around the quadriceps muscles and tendons was also excised. All visible necrotic tissue was removed. After thorough debridement of all infected tissue, the wound was thoroughly irrigated with pulsatile lavage. 6 liters of sterile saline were used to irrigate the wound. At this was point the wound appeared to be relatively clean. At this point a portion of the wound was closed. Approximately 3 inches of distal incision were closed with 3-0 PDS and 3-0 nylon. Approximately 4 inches of proximal wound was closed with 0 PDS, 3-0 PDS, 3-0 nylon. Next, Attention was turned to VAC dressing. An extra-large VAC dressing was cut. VAC dressings were placed into each of the fascial planes. The VAC dressing was now cut to fit the remaining wound. The VAC dressing was stapled into place. A Veraflo VAC dressing was utilized to allow for infusion of antibiotics with saline. VAC dressing was sealed appropriately. The patient was transferred to the recovery room in stable condition. Needle and sponge counts were correct. Reynaldo West MD Nov 21, 2017 08:41
[2017-11-21] MEDS: SODIUM CHLORIDE 0.9% FLUSH 10 ML FLUSH IV FLUSH SCH ×2 (09:00→20:24)
[2017-11-21] MEDS ORDERED: DO NOT ADM ANY ANTICOAGULANT DRUGS PRN (09:45)
[2017-11-21] MEDS: FLUCONAZOLE 400 MG PREMIX BAG 200 ML IV SCH (10:13)
[2017-11-21] MEDS: ARIPiprazole 5 MG TAB PO SCH (10:14)
[2017-11-21] MEDS: FAMOTIDINE 20 MG/2 ML VIAL IV PUSH SCH ×2 (10:14→20:25)
[2017-11-21] MEDS: hydrOXYzine HCL 50 MG TAB PO SCH ×2 (10:14→20:26)
[2017-11-21] MEDS: risperiDONE ODT 3 MG TAB PO SCH ×2 (10:14→20:25)
[2017-11-21] MEDS: DIVALPROEX SODIUM E.R. 500 MG TAB PO SCH ×2 (10:14→20:26)
[2017-11-21] MEDS: POTASSIUM CHLOR 20 MEQ PREMIX 100 ML IV PRN ×2 (10:15→12:37)
[2017-11-21] MEDS ORDERED: PROPOFOL 200 MG/20 ML AMP IV ONE (12:00)
[2017-11-21] MEDS ORDERED: DEXAMETHASONE SOD PHOS 4 MG/ML VIAL IV ONE (12:00)
[2017-11-21] MEDS ORDERED: ROCURONIUM INJ 50 MG/5 ML SYRINGE IV PUSH ONE (12:00)
[2017-11-21] MEDS ORDERED: ONDANSETRON HCL 4 MG/2 ML VIAL IV ONE (12:00)
[2017-11-21] MEDS ORDERED: LIDOCAINE HCL 1% PF 5 ML SYRINGE OTHER ONE (12:00)
[2017-11-21] MEDS ORDERED: PHENYLEPH/NS 1000 MCG/10 ML SYR IV ONE (12:00)
[2017-11-21] MEDS ORDERED: SUCCINYLCHOLINE CHLORIDE 100 MG/5 ML SYRINGE IV PUSH ONE (12:00)
[2017-11-21] MEDS ORDERED: LACTATED RINGER'S 1000 ML INJ 1,000 ML IV ONE (12:00)
--- NOTE | 2017-11-21 17:42 | HHI.IDPN ---
Subjective Subjective Remarks is a 41 y/o CM with PMHx of Schizoaffective disorder on Haldol IM injections in bilateral buttocks. Patient reports getting these as outpatient by unknown doctor (different doctor each time per patient). Approx 1 month back after he received his last Haldol IM shot in right buttock patient noticed pain and swelling and decreased range of motion. Patient continued to receive Haldol shots in left buttock due to pain in right buttock. Patient reports his ability to move around has declined since last 1 week and he needs help with ADL phuong dressing himself due to significant pain on right lower extremity. Patient reports fevers chills and night sweats for the last 1 week prior to admission and significant worsening pain and swelling of his right lower extremity. Patient's past medical history is also significant for right dorsum of the foot marsh as a child as well as neuropathy. Per review of records it appears the patient's mother has reported that he hasn't been feeling well since July and has presented to another emergency department related to back and hip pain. The patient was diagnosed with fecal impaction and severe constipation was seen by zone supervisor firearms. Patient reports that he was on a bowel regimen to help with her constipation and that has been a challenge to maintain continence. Patient has had incontinence of stool and intermittently incontinence of urine since July. With this background patient presents to the emergency department for evaluation of difficulty walking, generalized weakness, weight loss loss of appetite. Reportedly while in the triage area his blood pressure was in the 70s systolic. Patient also reported abdominal pain in the lower quadrants radiating to his bilateral lower extremity but more so on the right. Patient reported nausea decrease in appetite and loss of about 20 pound weight in the last 1 month. Patient denies any recent intravenous drug abuse. Patient does endorse to receiving intramuscular Haldol in bilateral buttocks. The last right buttock Haldol injection was approximately 1 month back. Patient reports having weakness of bilateral lower extremities more so on the right especially because of sharp shooting pains down his right leg. In the emergency department patient received a total of 4 L of IV fluids as a part of severe sepsis workup and management. Cultures drawn at admission are currently pending. A CT scan of the abdomen showed appearance of soft tissue mass of the proximal thigh and gluteal region with fluid and gas tracking down the rectus muscle into the anterior thigh muscle. This is concerning for infectious or necrotic process. Infectious disease consulted for evaluation and management of severe sepsis, right buttock abscess possible osteomyelitis. Overnight events reviewed with RN Initially had right thigh abscess and has developed progression of the infection to the right pelvis and hip as well as all the way to the right knee He has had multiple debridement procedures, the last one done in November 18 No new cultures from the last 2 surgeries Initial culture December 10 with Escherichia coli, strep vaginosis, and mixed anaerobes, as well as Rosalee albicans Cultures from November 16 with Rosalee albicans He is complaining of pain Blood pressure is okay No fever Has a wound VAC to the right lower extremity His WBC had gone up to 43,000 Antibiotics Current Medications Rocephin Flagyl Micafungin Vancomycin Medications (Trade) Dose Ordered Sig/Mega Route Start Time Stop Time Status Last Admin (Depakote Dr) 500 mg BID PO 11/09/17 09:00 Future Hold 11/09/17 09:22 (Atarax) 50 mg BID PO 11/09/17 09:00 11/19/17 09:04 (risperDAL) 3 mg DAILY PO 11/09/17 09:00 Future Hold 11/13/17 08:02 (NS Flush) 2 ml UNSCH PRN IV FLUSH 11/08/17 23:15 (NS Flush) 2 ml BID IV FLUSH 11/09/17 09:00 11/19/17 09:00 (Tylenol) 650 mg Q6H PRN PO 11/08/17 23:15 11/11/17 04:42 (Pepcid Inj) 20 mg Q12HR IV PUSH 11/09/17 09:00 11/19/17 09:00 (Zofran Inj) 4 mg Q6H PRN IV PUSH 11/08/17 23:15 (Restoril) 15 mg HS PRN PO 11/08/17 23:15 (Duoneb Neb) 1 ampule Q2HR NEB PRN INH 11/08/17 23:15 11/18/17 03:17 Miscellaneous Information 1 Q361D XX 11/08/17 23:15 11/08/17 01:00 (Chlorhexidine 2% Cloth) Taper DAILY@04 TOP 11/09/17 04:00 11/05/18 03:59 (Chlorhexidine 2% Cloth) 3 pack UNSCH PRN TOP 11/08/17 23:15 (Peridex 0.12% Liq) 15 ml BID@08,20 MT 11/09/17 20:00 11/19/17 08:00 (Depakene Liq) 500 mg BID OG-TUBE 11/09/17 23:00 Future Hold 11/13/17 08:02 Dextrose 1,000 ml @ 75 mls/hr [id number] IV 11/12/17 16:45 11/19/17 11:03 (Dilaudid Pf Inj) 1 mg Q3H PRN IV PUSH 11/13/17 16:00 11/19/17 02:06 (risperDAL M-TAB) 3 mg Q12HR PO 11/13/17 21:00 11/19/17 09:05 Valproate Sodium 500 mg/Sodium Chloride 105 ml @ 105 mls/hr Q8HR IV 11/13/17 22:00 11/19/17 14:28 Ceftriaxone Sodium 2000 mg/ Sodium Chloride 100 ml @ 200 mls/hr Q24H IV 11/14/17 09:00 11/19/17 09:04 Potassium Chloride 100 ml @ 50 mls/hr Q2H PRN IV 11/14/17 14:00 Potassium Chloride 100 ml @ 50 mls/hr Q2H PRN IV 11/14/17 14:00 11/15/17 00:47 (K-Lyte Cl Eff) 50 meq UNSCH PRN PO 11/14/17 14:00 Potassium Chloride 100 ml @ 25 mls/hr UNSCH PRN IV 11/14/17 14:00 Potassium Chloride 100 ml @ 50 mls/hr Q2H PRN IV 11/14/17 14:00 11/15/17 23:08 Magnesium Sulfate 4 gm/Sodium Chloride 100 ml @ 50 mls/hr UNSCH PRN IV 11/14/17 14:00 (Mag-Ox) 800 mg UNSCH PRN PO 11/14/17 14:00 Magnesium Sulfate 2 gm/Sodium Chloride 100 ml @ 50 mls/hr UNSCH PRN IV 11/14/17 14:00 (K-Phos) 2,000 mg Q4H PRN PO 11/14/17 14:00 Sodium Phosphate 30 mmol/Sodium Chloride 250 ml @ 42 mls/hr UNSCH PRN IV 11/14/17 14:00 (K-Phos) 2,000 mg UNSCH PRN PO/TUBE 11/14/17 14:00 Potassium Phosphate 30 mmol/ Sodium Chloride 260 ml @ 42 mls/hr UNSCH PRN IV 11/14/17 14:00 Metronidazole 100 ml @ 100 mls/hr Q8HR IV 11/14/17 16:00 11/19/17 14:29 Micafungin Sodium 150 mg/Sodium Chloride 100 ml @ 100 mls/hr Q24H IV 11/15/17 09:00 11/19/17 09:04 (Mycostatin Cream) 1 applic Q6HR TOPICAL 11/15/17 18:00 11/19/17 12:00 Pharmacy Profile Note 0 ml @ 0 mls/hr UNSCH OTHER 11/15/17 17:15 Vancomycin HCl 1500 mg/Sodium Chloride 515 ml @ 257.5 mls/ hr Q12H IV 11/16/17 12:00 11/18/17 23:00 (Depakote Er) 500 mg BID PO 11/17/17 14:45 11/19/17 09:05 (Abilify) 5 mg DAILY PO 11/17/17 14:45 11/19/17 09:04 Lactated Ringer's 1,000 ml @ 100 mls/hr Q10H IV 11/18/17 15:00 11/18/17 15:00 Miscellaneous Information ALL NURSING DEPARTME... UNSCH PRN .XX 11/18/17 14:45 11/19/17 14:44 Ceftriaxone IV Vanco IV Flagyl IV Micafungin IV Lines Line sites with no evidence of infection. Past Medical History Neuropathy involving the right leg h/o marsh right foot dorsum as a child. Schizoaffective disorder, Depressions Anxiety Past Surgical History None per patient. Allergies: Coded Allergies: diphenhydramine (Verified Adverse Reaction, Unknown, 11/08/17) Objective . Vital Signs Date Time Temp Pulse Resp B/P (MAP) Pulse Ox O2 Delivery O2 Flow Rate FiO2 11/21/17 14:00 84 11/21/17 12:22 97 Nasal Cannula 4.00 11/21/17 12:00 80 11/21/17 12:00 97.8 82 18 134/63 (86) 95 11/21/17 10:00 89 2/5/18 09:30 98.4 93 17 126/71 (89) 96 Nasal Cannula 3 11/21/17 09:15 96 18 128/67 (87) 99 Mechanical Ventilator 11/21/17 09:15 98 Nasal Cannula 3 11/21/17 09:10 97.6 92 20 120/64 (82) 100 Mechanical Ventilator 50 11/21/17 09:00 98 40 11/21/17 08:00 84 11/21/17 08:00 97.6 86 20 130/71 (90) 93 11/21/17 07:30 98.9 84 22 123/58 (79) 96 11/21/17 07:00 100 Nasal Cannula 3.00 11/21/17 06:00 82 11/21/17 04:00 82 11/21/17 04:00 98.6 82 37 133/63 (86) 96 11/21/17 02:00 80 11/21/17 00:00 99.4 82 34 137/68 (91) 91 11/21/17 00:00 82 11/20/17 22:00 93 Nasal Cannula 2.00 11/20/17 22:00 80 11/20/17 20:00 86 11/20/17 20:00 99.7 86 41 133/63 (86) 94 11/20/17 19:00 96 Nasal Cannula 3.00 11/20/17 18:00 81 11/21/17 11/21/17 11/22/17 15:00 23:00 07:00 Intake Total 550 ml Output Total 950 ml Balance -400 ml IV Total 550 ml Output Urine Total 550 ml Drainage Total 350 ml Estimated Blood Loss 50 ml . Laboratory Tests Test 11/20/17 03:58 11/21/17 05:17 White Blood Count 17.7 TH/MM3 10.7 TH/MM3 Red Blood Count 3.04 MIL/MM3 2.79 MIL/MM3 Hemoglobin 8.3 GM/DL 7.7 GM/DL Hematocrit 25.2 % 22.7 % Mean Corpuscular Volume 83.0 FL 81.3 FL Mean Corpuscular Hemoglobin 27.2 PG 27.5 PG Mean Corpuscular Hemoglobin Concent 32.7 % 33.8 % Red Cell Distribution Width 18.4 % 17.9 % Platelet Count 271 TH/MM3 275 TH/MM3 Mean Platelet Volume 8.4 FL 7.8 FL Neutrophils (%) (Auto) 91.5 % 84.7 % Lymphocytes (%) (Auto) 2.6 % 5.4 % Monocytes (%) (Auto) 5.5 % 9.0 % Eosinophils (%) (Auto) 0.1 % 0.1 % Basophils (%) (Auto) 0.3 % 0.8 % Neutrophils # (Auto) 16.2 TH/MM3 9.1 TH/MM3 Lymphocytes # (Auto) 0.5 TH/MM3 0.6 TH/MM3 Monocytes # (Auto) 1.0 TH/MM3 1.0 TH/MM3 Eosinophils # (Auto) 0.0 TH/MM3 0.0 TH/MM3 Basophils # (Auto) 0.0 TH/MM3 0.1 TH/MM3 CBC Comment AUTO DIFF DIFF FINAL Differential Total Cells Counted 100 Neutrophils % (Manual) 91 % Band Neutrophils % 4 % Lymphocytes % 1 % Monocytes % 4 % Neutrophils # (Manual) 16.8 TH/MM3 Differential Comment FINAL DIFF MANUAL Platelet Estimate NORMAL Platelet Morphology Comment NORMAL Laboratory Tests Test 11/20/17 03:58 11/21/17 05:17 Blood Urea Nitrogen 12 MG/DL 14 MG/DL Creatinine 0.75 MG/DL 0.72 MG/DL Random Glucose 94 MG/DL 129 MG/DL Calcium Level 7.9 MG/DL 7.9 MG/DL Sodium Level 146 MEQ/L 145 MEQ/L Potassium Level 2.9 MEQ/L 3.1 MEQ/L Chloride Level 111 MEQ/L 111 MEQ/L Carbon Dioxide Level 29.4 MEQ/L 28.7 MEQ/L Anion Gap 6 MEQ/L 5 MEQ/L Estimat Glomerular Filtration Rate 116 ML/MIN 122 ML/MIN Total Protein 4.9 GM/DL Albumin 1.0 GM/DL Alkaline Phosphatase 71 U/L Aspartate Amino Transf (AST/SGOT) 20 U/L Alanine Aminotransferase (ALT/SGPT) 10 U/L Total Bilirubin 0.4 MG/DL Microbiology Date/Time Source Procedure Growth Status 11/21/17 08:37 Wound Hip Fungal Smear - Final NO FUNGAL ELEMENTS SEEN. Resulted 11/21/17 08:37 Wound Hip Fungal Culture Pending Resulted 11/21/17 08:37 Wound Hip Acid Fast Stain Pending Received 11/21/17 08:37 Wound Hip Mycobacterial Culture Pending Received 11/21/17 08:37 Wound Hip Gram Stain - Final Resulted 11/21/17 08:37 Wound Hip Wound Culture Pending Resulted Imaging Lower Extremity CT 11/15/17 0000 Signed Impressions: Service Date/Time: Wednesday, November 15, 2017 13:22 - CONCLUSION: Extensive fluid surrounding the quadriceps musculature of the right thigh as well as air within the collection anteriorly and laterally which raises the possibility of abscess/infection. Fluid is also noted extending into the region of the gluteus muscles on the right. Diffuse subcutaneous edema the right thigh is noted. Compartment syndrome should be ruled out. Jez Chowdhury MD Abdomen/Pelvis CT 11/15/17 0000 Signed Impressions: Service Date/Time: Wednesday, November 15, 2017 13:22 - CONCLUSION: The abnormal soft tissue mass now has compartmentalized fluid collections and absence of air in the right soft tissues of thigh and gluteal region. This probably represents improving inflammatory or infectious process such as abscess. Small bilateral pleural effusions persist with a new consolidation with air bronchogram in the left lower lobe. Ascitic fluid suggested in the pelvis Silvio Laguerre MD Chest X-Ray 11/14/17 0600 Signed Impressions: Service Date/Time: Tuesday, November 14, 2017 04:22 - CONCLUSION: 1. Left basilar airspace disease similar to November 12. Bertrand Smalls MD Lower Extremity Ultrasound 11/08/172011 Signed Impressions: Service Date/Time: Wednesday, November 08, 2017 20:41 - CONCLUSION: 1. Negative for deep venous thrombosis. There are mildly enlarged right inguinal lymph nodes. Bertrand Smalls MD Thoracic Spine MRI 11/08/17 0000 Signed Impressions: Service Date/Time: Wednesday, November 08, 2017 22:01 - CONCLUSION: 1. Small bilateral pleural effusions. 2. No signal abnormalities in the thoracic vertebral bodies and no evidence of focal disc disease. Jace Bird MD Lumbar Spine MRI 11/08/17 0000 Signed Impressions: Service Date/Time: Wednesday, November 08, 2017 22:01 - CONCLUSION: 1. No evidence of lumbar disc disease. 2. Soft tissue abnormality about the right gluteal region suggesting abscess with T2 prolongation and contrast enhancement ; this is incompletely included in the [id number] of the exam. 3. There is also abnormal signal within the marrow of the sacral and coccygeal marrow including contrast enhancement suggesting that the right thigh and gluteal abnormality may extend intraosseous, possibly osteomyelitis. Jace Bird MD Last Impressions Chest X-Ray 11/09/17 0000 Signed Impressions: Service Date/Time: Thursday, November 09, 2017 16:23 - CONCLUSION: Minimal infiltrate left base new from comparison study. Rodrick Ch MD FACR Lower Extremity Ultrasound 11/08/172011 Signed Impressions: Service Date/Time: Wednesday, November 08, 2017 20:41 - CONCLUSION: 1. Negative for deep venous thrombosis. There are mildly enlarged right inguinal lymph nodes. Bertrand Smalls MD Abdomen/Pelvis CT 11/08/172011 Signed Impressions: Service Date/Time: Wednesday, November 08, 2017 22:54 - CONCLUSION: 1. Abnormal appearance of the soft tissues of the proximal thigh and gluteal region with fluid and gas tracking between the rectus muscles and the anterior thigh muscles. No focal abnormal areas of enhancement. The combination of fluid and gas suggests either an infectious or necrotic process. 2. Nonobstructing small calcified stone mid pole left kidney and multiple left renal cysts. 3. Small bilateral pleural effusions. Jace Bird MD Thoracic Spine MRI 11/08/17 0000 Signed Impressions: Service Date/Time: Wednesday, November 08, 2017 22:01 - CONCLUSION: 1. Small bilateral pleural effusions. 2. No signal abnormalities in the thoracic vertebral bodies and no evidence of focal disc disease. Jace Bird MD Lumbar Spine MRI 11/08/17 0000 Signed Impressions: Service Date/Time: Wednesday, November 08, 2017 22:01 - CONCLUSION: 1. No evidence of lumbar disc disease. 2. Soft tissue abnormality about the right gluteal region suggesting abscess with T2 prolongation and contrast enhancement ; this is incompletely included in the [id number] of the exam. 3. There is also abnormal signal within the marrow of the sacral and coccygeal marrow including contrast enhancement suggesting that the right thigh and gluteal abnormality may extend intraosseous, possibly osteomyelitis. Jace Bird MD Physical Exam GENERAL: Awake and interactive, not in respiratory distress. SKIN: Warm and dry, no generalized rash HEAD: Atraumatic. Normocephalic. No temporal or scalp tenderness. EYES: Pupils equal round and reactive. Extraocular motions intact. No scleral icterus. No injection or drainage. ENT: Dry oral mucosa, no nasal discharge NECK: Trachea midline. Supple, nontender, no meningeal signs. CARDIOVASCULAR: HS audible. RESPIRATORY: Diffuse rhonchi bilaterally GASTROINTESTINAL: Abdomen soft, non-tender, nondistended. MUSCULOSKELETAL: RLE with dry dressing from hip to just below the knee. Wound vac in place with bloody drainage. There is some induration and mild erythema noted in the right upper thigh right lower quadrant, as well as in the right leg. There is pitting edema in both feet. NEUROLOGICAL: Awake and alert and interactive. Grossly nonfocal Psych cooperative IV line sites with no e.o infection. Assessment & Plan Remarks Severe sepsis present on admission. Staph coag neg bacteremia: 1 out of 4 bottles likely contaminant. E.coli and Strep, mixed anaerobes (beta lactamase positive) and Rosalee albicans , right thigh abscess/osteomyelitis, xtending to pelvis/hip and R knee - S/P multiple debridements Schizoaffective disorder receives IM Haldol injections in the buttocks. Lower extremity neuropathy. Weight loss, loss of appetite Leukocytosis, worsening Recommendations: Chnage Cefepime IV (await new intraop cultures to deescalate) Continue IV flagyl Continue Vanco IV (target 15-20 for osteomyelitis) Continue Diflucan (rosalee albicans intraop specimens) Follow QT interval and LFTs while on Diflucan. Follow cultures Follow clinically. María Silva RN, MD Nov 21, 2017 17:42
[2017-11-21] MEDS: HYDROmorphone HCL PF 2 MG/ML VIAL IV PUSH PRN (23:17)
[2017-11-22] VITALS (11 sets, daily range): BP systolic 112–134; BP diastolic 56–76; PULSE 72–125; RESP 20–33; TEMP 98.2–99.1; O2SAT 93–97
[2017-11-22] MEDS: NYSTATIN 100,000 UNIT/GM CREAM 15 GM TOPICAL SCH ×5 (00:16→23:07)
[2017-11-22] MEDS: CEFEPIME INJ 2,000 MG in SODIUM CHLORIDE 0.9% INJ 100 ML IV SCH ×2 (00:20→08:32)
[2017-11-22] MEDS: CHLORHEXIDINE GLUCONATE 2 % 1 PACK (2 CLOTHS) TOP SCH (04:00)
[2017-11-22] MEDS: LACTATED RINGER'S 1000 ML INJ 1,000 ML IV SCH ×5 (04:06→23:07)
[2017-11-22 05:37] LABS: AUTOMATED NEUTROPHIL # 10.1 TH/MM3 (1.8-7.7); BASOPHIL # 0.1 TH/MM3 (0-0.2); BASOPHIL % 0.7 % (0.0-2.0); EOSINOPHIL % 0.3 % (0.0-4.0); HEMATOCRIT 23.3 % (39.0-51.0); HEMOGLOBIN 7.7 GM/DL (13.0-17.0); LYMPH % 6.7 % (9.0-44.0); LYMPHOCYTE # 0.8 TH/MM3 (1.0-4.8); MEAN CELL VOLUME 83.3 FL (80.0-100.0); MEAN CORPUSCULAR HEMOGLOBIN 27.3 PG (27.0-34.0); MEAN CORPUSCULAR HGB CONC 32.8 % (32.0-36.0); MEAN PLATELET VOLUME 8.7 FL (7.0-11.0); MONO % 8.4 % (0.0-8.0); NEUT % 83.9 % (16.0-70.0); PLATELET COUNT 269 TH/MM3 (150-450); RED CELL DISTRIBUTION WIDTH 18.4 % (11.6-17.2)
[2017-11-22] MEDS: METRONIDAZOLE 500 MG/100 ML ISONTONIC SOLN IV SCH ×3 (05:41→22:02)
[2017-11-22] MEDS: DEXTROSE 5% IN WATE 1000ML INJ 1,000 ML IV SCH ×2 (05:43→22:34)
[2017-11-22] MEDS: HYDROmorphone HCL PF 2 MG/ML VIAL IV PUSH PRN ×3 (06:02→20:26)
[2017-11-22] MEDS: VALPROATE INJ 500 MG in SODIUM CHLORIDE 0.9% INJ 100 ML IV SCH ×3 (06:56→22:06)
[2017-11-22] MEDS: CHLORHEXIDINE 0.12% (ORAL KIT) 15 ML CUP MT SCH ×2 (07:18→21:54)
--- NOTE | 2017-11-22 07:23 | PD.ORT.PN ---
Subjective Subjective Remarks POD 1 s/p I&D right thigh with vac placement stable. awake and alert. confused. Objective Vitals Vital Signs Date Time Temp Pulse Resp B/P (MAP) Pulse Ox O2 Delivery O2 Flow Rate FiO2 11/22/17 06:00 83 11/22/17 04:00 98.6 85 24 117/63 (81) 95 11/22/17 04:00 81 11/22/17 02:00 84 11/22/17 00:00 80 11/22/17 00:00 98.4 80 30 113/58 (76) 93 11/21/17 22:00 85 11/21/17 20:35 97 Nasal Cannula 3.00 11/21/17 20:00 98.4 81 23 122/63 (82) 95 11/21/17 20:00 83 11/21/17 19:00 97 Nasal Cannula 3.00 11/21/17 18:00 79 11/21/17 16:00 98.7 82 22 114/58 (76) 97 11/21/17 16:00 82 11/21/17 14:00 84 11/21/17 12:22 97 Nasal Cannula 4.00 11/21/17 12:00 80 11/21/17 12:00 97.8 82 18 134/63 (86) 95 11/21/17 10:00 89 11/21/17 09:30 98.4 93 17 126/71 (89) 96 Nasal Cannula 3 11/21/17 09:15 96 18 128/67 (87) 99 Mechanical Ventilator 11/21/17 09:15 98 Nasal Cannula 3 11/21/17 09:10 97.6 92 20 120/64 (82) 100 Mechanical Ventilator 50 11/21/17 09:00 98 40 11/21/17 08:00 84 11/21/17 08:00 97.6 86 20 130/71 (90) 93 11/21/17 07:30 98.9 84 22 123/58 (79) 96 I/O 11/21/17 11/21/17 11/21/17 11/22/17 11/22/17 11/22/17 07:00 15:00 23:00 07:00 15:00 23:00 Intake Total 700 ml 550 ml 1250 ml 1655 ml Output Total 3000 ml 950 ml 2300 ml 4000 ml Balance -2300 ml -400 ml -1050 ml -2345 ml Intake Oral 700 ml 1250 ml 1250 ml IV Total 550 ml 405 ml Output Urine Total 2000 ml 550 ml 1600 ml 3275 ml Drainage Total 1000 ml 350 ml 700 ml 725 ml Estimated Blood Loss 50 ml # Bowel Movements 2 2 1 Result Diagram: 11/22/17 0326 11/21/17 0517 Objective Remarks RLE: +vac. good seal. good cap refill distally, moves toes R leg. No tenderness R calf Assessment & Plan Assessment and Plan 1) Right Leg Infection s/p I&D with vac placement - POD 1 -vac settings: 125mmHg, low, 10min soak at 50mL, 2hr suction time -plan for repeat I&D -micofungin added to Abx soak -npo after MN tuesday -sign consents; placed on chart. Gigi Rodríguez/[employer] BOSS Nov 22, 2017 07:23
--- NOTE | 2017-11-22 07:45 | HHI.CCPN ---
Subjective Remarks/Hospital Course 41 year old male presents for evaluation of difficulty walking, generalized weakness that began earlier today. The patient arrives out in triage with a blood pressure systolic in the 70s. According to the patient's mother he has not been well since July. She reports that he was seen at another emergency department related to back and hip pain at that time. The patient at that time was also diagnosed with a fecal impaction and severe constipation. He has been since then seen by a director drug. He was placed on a bowel regimen to help with the constipation, however his mother reports that he's been having difficulty maintaining it. The patient since July has been incontinent of stool and intermittently incontinent of urine. The stool is brown in color. The patient has a diagnosis of schizoaffective disorder and is a poor historian. His mother reports that he has a history of being diagnosed with a nerve problem involving the right leg and since Tuesday he has had swelling of the right leg. He reports having abdominal pain down in bilateral lower quadrants of the abdomen. He reports having nausea. They deny him having any known recent fevers, worsening cough or congestion, neck pain, chest pain, shortness of breath, weakness of his upper extremities, numbness or tingling of his upper extremities. The patient does however report having weakness of bilateral lower extremities with pain/sharp pains that shoot down into the right leg. The CT scan obtained in the emergency department shows abnormal appearance of the soft tissue of the proximal thigh and the gluteal region with fluid and gas tracking between the rectus muscle in the anterior thigh muscle. The combination of fluid and gas suggest either an infectious or necrotic process. 11/09: Ongoing resuscitation from sepsis due to right thigh abscess, extends to gluteal region, possible bone involvement? Urine acceptable. 11/10: S/P debridement right thigh abscess and wound vac. Septic behavior. Continue ventilator support, back to OR tomorrow. 11/11: No events over the night. Patient remains intubated and sedated. No pressors. Tmax 101.5, I/O 1950/2100. No family at bedside. 11/12: Hb low yesterday evening, received 2 units PRBC. Decreasing sedation to better assess mental status. No pressors. Good urine output. Tmax 100.3. 11/13: Few rhonchi but lungs generally clear - will try to extubate. 11/14: Extubated 11/13 and breathing comfortably. Small left effusion. IV is D5W but sodium still elevated. DVT prophylaxis held for OR. 11/15: Worsening sepsis, WBC increased to 23,400. Wound cx from 11/09/17 also growing yeast. I will start micafungin 150 mg daily, first dose stat. Discussed with ID Dr. Upton- send blood cultures. Also sodium noted to be climbing today 160. Increased D5W to 200 ML per hour and check BMP 2 PM 11/16: Right thigh remains tense. Micafungin started for wound culture growing Rosalee. CT of the right lower extremity shows extensive fluid surrounding the quadriceps muscle as air within the collection suspicious for abscess. Case was discussed extensively with Dr. Campos and the surgical team yesterday. OR with general surgery, ortho today. Receiving 2 units of PRBC. 11/17: Continuing septic picture. Hemodynamics stable. Plan for wound exploration by Orthopedics tomorrow. Continue to push nutrition. 11/18: Continued smoldering septic picture. Wound exploration planned for today. Patient is stable for procedure. Excessive secretions remain problematic. 11/19: Extensive debridement accomplished 11/18 including evacuation of cloudy fluid from the right knee joint. Vac dressing applied. 11/20: Much improved after last debridement. More alert, less toxic appearing. 11/21: Tmax 99.7, normotensive. Leukocytosis normalized. 11/22: Tolerated wound debridement/irrigation/vac placement yesterday. Objective Vital Signs Date Time Temp Pulse Resp B/P (MAP) Pulse Ox O2 Delivery O2 Flow Rate FiO2 11/22/17 06:00 83 11/22/17 04:00 98.6 24 117/63 (81) 95 11/21/17 20:35 Nasal Cannula 3.00 11/21/17 09:10 50 Intake and Output 11/22/17 11/22/17 11/23/17 08:00 16:00 00:00 Intake Total 1450 ml Output Total 4000 ml Balance -2550 ml Result Diagram: 11/22/17 0326 11/21/17 0517 Imaging Last 24 hours Impressions Lower Extremity Ultrasound 11/08/172011 Signed Impressions: Service Date/Time: Wednesday, November 08, 2017 20:41 - CONCLUSION: 1. Negative for deep venous thrombosis. There are mildly enlarged right inguinal lymph nodes. Bertrand Smalls MD Chest X-Ray 11/08/172011 Signed Impressions: Service Date/Time: Wednesday, November 08, 2017 21:10 - CONCLUSION: 1. Subsegmental airspace disease right lung base. Finding may represent a small bronchopneumonia. Bertrand Smalls MD Abdomen/Pelvis CT 11/08/172011 Signed Impressions: Service Date/Time: Wednesday, November 08, 2017 22:54 - CONCLUSION: 1. Abnormal appearance of the soft tissues of the proximal thigh and gluteal region with fluid and gas tracking between the rectus muscles and the anterior thigh muscles. No focal abnormal areas of enhancement. The combination of fluid and gas suggests either an infectious or necrotic process. 2. Nonobstructing small calcified stone mid pole left kidney and multiple left renal cysts. 3. Small bilateral pleural effusions. Jace Bird MD Objective Remarks General - middle age gentleman, remains ill appearing. HEENT - neck is supple, airway widely patent. CV - regular heart sounds, no murmurs. NL S1S2, no JVD Chest - scattered coarse breath sounds b/l, good air entry, no wheezes, cough with plentiful secretions. Abdomen soft, non-tender, non-distended, BS present, no guarding. Extremities - 2+ edema of the right lower extremity/foot, 1+ edema of the left lower extremity. Vacs in place. Neuro - pupils equal, reactive, follows commands, moves 4 limbs with 5/5. Conversant, less confused. A/P Assessment and Plan ASSESSMENT: 1. Severe sepsis secondary thigh abscess/OM s/p I&D with wound vac placement ( due to mixed clara, rosalee) 2. Viridans strep and CoNS bacteremia 3. Sacral OM 4. Hyperchloremic hypernatremia 5. Schizoaffective disorder 6. Acute respiratory failure - now on minimal FiO2 requirements 7. Anemia requiring transfusion 8. Infected right knee joint PLAN: 1. Continue micafungin 150 mg daily for yeast in wound culture, follow up fungal blood cultures, adjust per ID service. 2. Antibiotics per ID (Ceftriaxone IV, oral Flagyl) 3. S/P aggressive debridement right thigh and knee joint 4. Transfused 2 units PRBC. 5. Diet. 6. FM O2. IS 7. Continue psych meds. Psychiatry to assist with medication 8. On Depakote and Risperidone 9. DVT prophylaxis, GI prophylaxis 10. Transfer to med/surg Overall impression: Improved general appearance. No signs of active sepsis. Tariq Garcia MD Nov 22, 2017 07:45
[2017-11-22] MEDS: SODIUM CHLORIDE 0.9% FLUSH 10 ML FLUSH IV FLUSH SCH ×2 (08:20→22:02)
[2017-11-22] MEDS: FAMOTIDINE 20 MG/2 ML VIAL IV PUSH SCH ×2 (08:32→22:03)
[2017-11-22] MEDS: risperiDONE ODT 3 MG TAB PO SCH ×2 (08:33→22:02)
[2017-11-22] MEDS: DIVALPROEX SODIUM E.R. 500 MG TAB PO SCH ×2 (08:33→22:02)
[2017-11-22] MEDS: hydrOXYzine HCL 50 MG TAB PO SCH ×2 (08:33→22:02)
[2017-11-22] MEDS: ARIPiprazole 5 MG TAB PO SCH (08:33)
[2017-11-22] MEDS: FLUCONAZOLE 400 MG PREMIX BAG 200 ML IV SCH (08:34)
[2017-11-22 11:11] LABS: BICARBONATE 29.7 MEQ/L (21.0-32.0); CALCIUM 7.8 MG/DL (8.5-10.1); CREATININE 0.62 MG/DL (0.60-1.30)
[2017-11-22] MEDS: cefTRIAXone INJ 2,000 MG in SODIUM CHLORIDE 0.9% INJ 100 ML IV SCH (15:00)
--- NOTE | 2017-11-22 15:34 | HHI.IDPN ---
Subjective Subjective Remarks is a 41 y/o CM with PMHx of Schizoaffective disorder on Haldol IM injections in bilateral buttocks. Patient reports getting these as outpatient by unknown doctor (different doctor each time per patient). Approx 1 month back after he received his last Haldol IM shot in right buttock patient noticed pain and swelling and decreased range of motion. Patient continued to receive Haldol shots in left buttock due to pain in right buttock. Patient reports his ability to move around has declined since last 1 week and he needs help with ADL phuong dressing himself due to significant pain on right lower extremity. Patient reports fevers chills and night sweats for the last 1 week prior to admission and significant worsening pain and swelling of his right lower extremity. Patient's past medical history is also significant for right dorsum of the foot marsh as a child as well as neuropathy. Per review of records it appears the patient's mother has reported that he hasn't been feeling well since July and has presented to another emergency department related to back and hip pain. The patient was diagnosed with fecal impaction and severe constipation was seen by oil heater installer. Patient reports that he was on a bowel regimen to help with her constipation and that has been a challenge to maintain continence. Patient has had incontinence of stool and intermittently incontinence of urine since July. With this background patient presents to the emergency department for evaluation of difficulty walking, generalized weakness, weight loss loss of appetite. Reportedly while in the triage area his blood pressure was in the 70s systolic. Patient also reported abdominal pain in the lower quadrants radiating to his bilateral lower extremity but more so on the right. Patient reported nausea decrease in appetite and loss of about 20 pound weight in the last 1 month. Patient denies any recent intravenous drug abuse. Patient does endorse to receiving intramuscular Haldol in bilateral buttocks. The last right buttock Haldol injection was approximately 1 month back. Patient reports having weakness of bilateral lower extremities more so on the right especially because of sharp shooting pains down his right leg. In the emergency department patient received a total of 4 L of IV fluids as a part of severe sepsis workup and management. Cultures drawn at admission are currently pending. A CT scan of the abdomen showed appearance of soft tissue mass of the proximal thigh and gluteal region with fluid and gas tracking down the rectus muscle into the anterior thigh muscle. This is concerning for infectious or necrotic process. Infectious disease consulted for evaluation and management of severe sepsis, right buttock abscess possible osteomyelitis. Overnight events reviewed with RN No fever Has a wound VAC to the right lower extremity WBC improved. No rash no diarrhea Sleeping appears comfortable. Antibiotics Current Medications Rocephin Flagyl Micafungin Vancomycin Current Medications Medications (Trade) Dose Ordered Sig/Mega Route Start Time Stop Time Status Last Admin (Depakote Dr) 500 mg BID PO 11/09/17 09:00 Future Hold 11/09/17 09:22 (Atarax) 50 mg BID PO 11/09/17 09:00 11/22/17 08:33 (risperDAL) 3 mg DAILY PO 11/09/17 09:00 Future Hold 11/13/17 08:02 (NS Flush) 2 ml UNSCH PRN IV FLUSH 11/08/17 23:15 (NS Flush) 2 ml BID IV FLUSH 11/09/17 09:00 11/22/17 08:20 (Tylenol) 650 mg Q6H PRN PO 11/08/17 23:15 11/11/17 04:42 (Pepcid Inj) 20 mg Q12HR IV PUSH 11/09/17 09:00 11/22/17 08:32 (Zofran Inj) 4 mg Q6H PRN IV PUSH 11/08/17 23:15 (Restoril) 15 mg HS PRN PO 11/08/17 23:15 11/19/17 21:35 (Duoneb Neb) 1 ampule Q2HR NEB PRN INH 11/08/17 23:15 11/20/17 14:49 Miscellaneous Information 1 Q361D XX 11/08/17 23:15 11/08/17 01:00 (Chlorhexidine 2% Cloth) Taper DAILY@04 TOP 11/09/17 04:00 11/05/18 03:59 (Chlorhexidine 2% Cloth) 3 pack UNSCH PRN TOP 11/08/17 23:15 (Peridex 0.12% Liq) 15 ml BID@08,20 MT 11/09/17 20:00 11/21/17 19:32 (Depakene Liq) 500 mg BID OG-TUBE 11/09/17 23:00 Future Hold 11/13/17 08:02 Dextrose 1,000 ml @ 75 mls/hr [id number] IV 11/12/17 16:45 11/21/17 16:23 (Dilaudid Pf Inj) 1 mg Q3H PRN IV PUSH 11/13/17 16:00 11/22/17 08:33 (risperDAL M-TAB) 3 mg Q12HR PO 11/13/17 21:00 11/22/17 08:33 Valproate Sodium 500 mg/Sodium Chloride 105 ml @ 105 mls/hr Q8HR IV 11/13/17 22:00 11/22/17 13:07 Potassium Chloride 100 ml @ 50 mls/hr Q2H PRN IV 11/14/17 14:00 Potassium Chloride 100 ml @ 50 mls/hr Q2H PRN IV 11/14/17 14:00 11/21/17 12:37 (K-Lyte Cl Eff) 50 meq UNSCH PRN PO 11/14/17 14:00 Potassium Chloride 100 ml @ 25 mls/hr UNSCH PRN IV 11/14/17 14:00 Potassium Chloride 100 ml @ 50 mls/hr Q2H PRN IV 11/14/17 14:00 11/15/17 23:08 Magnesium Sulfate 4 gm/Sodium Chloride 100 ml @ 50 mls/hr UNSCH PRN IV 11/14/17 14:00 (Mag-Ox) 800 mg UNSCH PRN PO 11/14/17 14:00 Magnesium Sulfate 2 gm/Sodium Chloride 100 ml @ 50 mls/hr UNSCH PRN IV 11/14/17 14:00 (K-Phos) 2,000 mg Q4H PRN PO 11/14/17 14:00 Sodium Phosphate 30 mmol/Sodium Chloride 250 ml @ 42 mls/hr UNSCH PRN IV 11/14/17 14:00 (K-Phos) 2,000 mg UNSCH PRN PO/TUBE 11/14/17 14:00 Potassium Phosphate 30 mmol/ Sodium Chloride 260 ml @ 42 mls/hr UNSCH PRN IV 11/14/17 14:00 Metronidazole 100 ml @ 100 mls/hr Q8HR IV 11/14/17 16:00 11/22/17 13:07 (Mycostatin Cream) 1 applic Q6HR TOPICAL 11/15/17 18:00 11/22/17 11:40 (Depakote Er) 500 mg BID PO 2/1/18 14:45 11/22/17 08:33 (Abilify) 5 mg DAILY PO 11/17/17 14:45 11/22/17 08:33 Lactated Ringer's 1,000 ml @ 100 mls/hr Q10H IV 11/18/17 15:00 11/21/17 23:00 Fluconazole/ Sodium Chloride 200 ml @ 100 mls/hr Q24H IV 11/20/17 10:00 11/22/17 08:34 Vancomycin HCl 4000 mg/ Tobramycin Sulfate 2400 mg/ Micafungin Sodium 1000 mg/Sodium Chloride 3,000 ml @ 0 mls/hr 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 Past Medical History Neuropathy involving the right leg h/o marsh right foot dorsum as a child. Schizoaffective disorder, Depressions Anxiety Past Surgical History None per patient. Allergies: Coded Allergies: diphenhydramine (Verified Adverse Reaction, Unknown, 11/08/17) Objective . Vital Signs Date Time Temp Pulse Resp B/P (MAP) Pulse Ox O2 Delivery O2 Flow Rate FiO2 11/22/17 14:00 75 11/22/17 12:00 78 11/22/17 12:00 98.4 72 20 114/56 (75) 96 11/22/17 10:00 80 11/22/17 09:09 96 Nasal Cannula 3.00 11/22/17 08:00 98.8 82 22 121/60 (80) 94 11/22/17 08:00 82 11/22/17 07:00 95 Nasal Cannula 3.00 11/22/17 06:00 83 11/22/17 04:00 98.6 85 24 117/63 (81) 95 11/22/17 04:00 81 11/22/17 02:00 84 11/22/17 00:00 80 11/22/17 00:00 98.4 80 30 113/58 (76) 93 2/5/18 22:00 85 11/21/17 20:35 97 Nasal Cannula 3.00 11/21/17 20:00 98.4 81 23 122/63 (82) 95 11/21/17 20:00 83 11/21/17 19:00 97 Nasal Cannula 3.00 11/21/17 18:00 79 11/21/17 16:00 98.7 82 22 114/58 (76) 97 11/21/17 16:00 82 11/22/17 11/22/17 11/23/17 15:00 23:00 07:00 Intake Total 405 ml Balance 405 ml IV Total 405 ml . Laboratory Tests Test 11/21/17 05:17 11/22/17 03:26 White Blood Count 10.7 TH/MM3 12.0 TH/MM3 Red Blood Count 2.79 MIL/MM3 2.80 MIL/MM3 Hemoglobin 7.7 GM/DL 7.7 GM/DL Hematocrit 22.7 % 23.3 % Mean Corpuscular Volume 81.3 FL 83.3 FL Mean Corpuscular Hemoglobin 27.5 PG 27.3 PG Mean Corpuscular Hemoglobin Concent 33.8 % 32.8 % Red Cell Distribution Width 17.9 % 18.4 % Platelet Count 275 TH/MM3 269 TH/MM3 Mean Platelet Volume 7.8 FL 8.7 FL Neutrophils (%) (Auto) 84.7 % 83.9 % Lymphocytes (%) (Auto) 5.4 % 6.7 % Monocytes (%) (Auto) 9.0 % 8.4 % Eosinophils (%) (Auto) 0.1 % 0.3 % Basophils (%) (Auto) 0.8 % 0.7 % Neutrophils # (Auto) 9.1 TH/MM3 10.1 TH/MM3 Lymphocytes # (Auto) 0.6 TH/MM3 0.8 TH/MM3 Monocytes # (Auto) 1.0 TH/MM3 1.0 TH/MM3 Eosinophils # (Auto) 0.0 TH/MM3 0.0 TH/MM3 Basophils # (Auto) 0.1 TH/MM3 0.1 TH/MM3 CBC Comment DIFF FINAL DIFF FINAL Differential Comment Laboratory Tests Test 11/21/17 05:17 11/22/17 09:59 Blood Urea Nitrogen 14 MG/DL 13 MG/DL Creatinine 0.72 MG/DL 0.62 MG/DL Random Glucose 129 MG/DL 106 MG/DL Total Protein 4.9 GM/DL Albumin 1.0 GM/DL Calcium Level 7.9 MG/DL 7.8 MG/DL Alkaline Phosphatase 71 U/L Aspartate Amino Transf (AST/SGOT) 20 U/L Alanine Aminotransferase (ALT/SGPT) 10 U/L Total Bilirubin 0.4 MG/DL Sodium Level 145 MEQ/L 144 MEQ/L Potassium Level 3.1 MEQ/L 3.6 MEQ/L Chloride Level 111 MEQ/L 109 MEQ/L Carbon Dioxide Level 28.7 MEQ/L 29.7 MEQ/L Anion Gap 5 MEQ/L 5 MEQ/L Estimat Glomerular Filtration Rate 122 ML/MIN 144 ML/MIN Microbiology Date/Time Source Procedure Growth Status 11/21/17 08:37 Wound Hip Fungal Smear - Final NO FUNGAL ELEMENTS SEEN. Resulted 11/21/17 08:37 Wound Hip Fungal Culture Pending Resulted 11/21/17 08:37 Wound Hip Acid Fast Stain - Final NO ACID FAST BACILLI SEEN Resulted 11/21/17 08:37 Wound Hip Mycobacterial Culture Pending Resulted 11/21/17 08:37 Wound Hip Gram Stain - Final Resulted 11/21/17 08:37 Wound Hip Wound Culture - Preliminary NO GROWTH IN 24 HOURS. Resulted Imaging Lower Extremity CT 11/15/17 0000 Signed Impressions: Service Date/Time: Wednesday, November 15, 2017 13:22 - CONCLUSION: Extensive fluid surrounding the quadriceps musculature of the right thigh as well as air within the collection anteriorly and laterally which raises the possibility of abscess/infection. Fluid is also noted extending into the region of the gluteus muscles on the right. Diffuse subcutaneous edema the right thigh is noted. Compartment syndrome should be ruled out. Jez Chowdhury MD Abdomen/Pelvis CT 11/15/17 0000 Signed Impressions: Service Date/Time: Wednesday, November 15, 2017 13:22 - CONCLUSION: The abnormal soft tissue mass now has compartmentalized fluid collections and absence of air in the right soft tissues of thigh and gluteal region. This probably represents improving inflammatory or infectious process such as abscess. Small bilateral pleural effusions persist with a new consolidation with air bronchogram in the left lower lobe. Ascitic fluid suggested in the pelvis Silvio Laguerre MD Chest X-Ray 11/14/17 0600 Signed Impressions: Service Date/Time: Tuesday, November 14, 2017 04:22 - CONCLUSION: 1. Left basilar airspace disease similar to November 12. Bertrand Smalls MD Lower Extremity Ultrasound 11/08/172011 Signed Impressions: Service Date/Time: Wednesday, November 08, 2017 20:41 - CONCLUSION: 1. Negative for deep venous thrombosis. There are mildly enlarged right inguinal lymph nodes. Bertrand Smalls MD Thoracic Spine MRI 11/08/17 Signed Impressions: Service Date/Time: Wednesday, November 08, 2017 22:01 - CONCLUSION: 1. Small bilateral pleural effusions. 2. No signal abnormalities in the thoracic vertebral bodies and no evidence of focal disc disease. Jace Bird MD Lumbar Spine MRI 11/08/17 0000 Signed Impressions: Service Date/Time: Wednesday, November 08, 2017 22:01 - CONCLUSION: 1. No evidence of lumbar disc disease. 2. Soft tissue abnormality about the right gluteal region suggesting abscess with T2 prolongation and contrast enhancement ; this is incompletely included in the [id number] of the exam. 3. There is also abnormal signal within the marrow of the sacral and coccygeal marrow including contrast enhancement suggesting that the right thigh and gluteal abnormality may extend intraosseous, possibly osteomyelitis. Jace Bird MD Last Impressions Chest X-Ray 11/09/17 Signed Impressions: Service Date/Time: Thursday, November 09, 2017 16:23 - CONCLUSION: Minimal infiltrate left base new from comparison study. Rodrick Ch MD FACR Lower Extremity Ultrasound 11/08/172011 Signed Impressions: Service Date/Time: Wednesday, November 08, 2017 20:41 - CONCLUSION: 1. Negative for deep venous thrombosis. There are mildly enlarged right inguinal lymph nodes. Bertrand Smalls MD Abdomen/Pelvis CT 11/08/172011 Signed Impressions: Service Date/Time: Wednesday, November 08, 2017 22:54 - CONCLUSION: 1. Abnormal appearance of the soft tissues of the proximal thigh and gluteal region with fluid and gas tracking between the rectus muscles and the anterior thigh muscles. No focal abnormal areas of enhancement. The combination of fluid and gas suggests either an infectious or necrotic process. 2. Nonobstructing small calcified stone mid pole left kidney and multiple left renal cysts. 3. Small bilateral pleural effusions. Jace Bird MD Thoracic Spine MRI 11/08/17 0000 Signed Impressions: Service Date/Time: Wednesday, November 08, 2017 22:01 - CONCLUSION: 1. Small bilateral pleural effusions. 2. No signal abnormalities in the thoracic vertebral bodies and no evidence of focal disc disease. Jace Bird MD Lumbar Spine MRI 11/08/17 0000 Signed Impressions: Service Date/Time: Wednesday, November 08, 2017 22:01 - CONCLUSION: 1. No evidence of lumbar disc disease. 2. Soft tissue abnormality about the right gluteal region suggesting abscess with T2 prolongation and contrast enhancement ; this is incompletely included in the [id number] of the exam. 3. There is also abnormal signal within the marrow of the sacral and coccygeal marrow including contrast enhancement suggesting that the right thigh and gluteal abnormality may extend intraosseous, possibly osteomyelitis. Jace Bird MD Physical Exam GENERAL: Awake and interactive, not in respiratory distress. SKIN: Warm and dry, no generalized rash HEAD: Atraumatic. Normocephalic. No temporal or scalp tenderness. EYES: Pupils equal round and reactive. Extraocular motions intact. No scleral icterus. No injection or drainage. ENT: Dry oral mucosa, no nasal discharge NECK: Trachea midline. Supple, nontender, no meningeal signs. CARDIOVASCULAR: HS audible. RESPIRATORY: Diffuse rhonchi bilaterally GASTROINTESTINAL: Abdomen soft, non-tender, nondistended. MUSCULOSKELETAL: RLE with wound vac in place. surrounding erythema and induration decreased. Groin with edema noted. NEUROLOGICAL: Awake and alert and interactive. Grossly nonfocal Psych cooperative IV line sites with no e.o infection. Assessment & Plan Remarks Severe sepsis present on admission. Staph coag neg bacteremia: 1 out of 4 bottles likely contaminant. E.coli and Strep, mixed anaerobes (beta lactamase positive) and Rosalee albicans , right thigh abscess/osteomyelitis, xtending to pelvis/hip and R knee - S/P multiple debridements Schizoaffective disorder receives IM Haldol injections in the buttocks. Lower extremity neuropathy. Weight loss, loss of appetite Leukocytosis, worsening Recommendations: DC Cefepime IV (no PSAE identified) Start Ceftriaxone IV Continue IV Flagyl till will assess post op. DC Vanco IV (no MRSA or CGNS in intra op cx) Staph epi in blood likely contaminant. Continue Diflucan (rosalee albicans intraop specimens) Follow QT interval and LFTs while on Diflucan. Follow cultures Follow clinically. María Silva RN, MD Nov 22, 2017 15:34
[2017-11-23] VITALS (9 sets, daily range): BP systolic 118–147; BP diastolic 57–72; PULSE 70–85; RESP 20–39; TEMP 96.6–98.9; O2SAT 92–99
[2017-11-23] MEDS: HYDROmorphone HCL PF 2 MG/ML VIAL IV PUSH PRN ×2 (02:43→21:53)
[2017-11-23] MEDS: CHLORHEXIDINE GLUCONATE 2 % 1 PACK (2 CLOTHS) TOP SCH (03:29)
[2017-11-23] MEDS: LACTATED RINGER'S 1000 ML INJ 1,000 ML IV SCH ×3 (05:00→13:39)
[2017-11-23] MEDS: NYSTATIN 100,000 UNIT/GM CREAM 15 GM TOPICAL SCH ×3 (05:20→17:44)
[2017-11-23] MEDS: METRONIDAZOLE 500 MG/100 ML ISONTONIC SOLN IV SCH ×3 (05:23→21:45)
[2017-11-23] MEDS: VALPROATE INJ 500 MG in SODIUM CHLORIDE 0.9% INJ 100 ML IV SCH ×3 (05:24→23:01)
--- NOTE | 2017-11-23 07:11 | PD.ORT.PN ---
Subjective Subjective Remarks POD 2 s/p I&D right thigh with vac placement stable. awake and alert. confused. Objective Vitals Vital Signs Date Time Temp Pulse Resp B/P (MAP) Pulse Ox O2 Delivery O2 Flow Rate FiO2 11/23/17 04:12 92 Nasal Cannula 3.00 11/23/17 04:00 96.6 70 32 126/67 (86) 99 11/23/17 04:00 70 11/23/17 00:00 82 11/23/17 00:00 98.9 82 26 147/63 (91) 99 11/22/17 20:00 80 11/22/17 20:00 98.2 86 33 134/76 (95) 96 11/22/17 19:00 95 Nasal Cannula 3.00 11/22/17 16:00 74 11/22/17 16:00 99.1 76 21 112/62 (79) 97 11/22/17 14:00 75 11/22/17 12:00 78 11/22/17 12:00 98.4 72 20 114/56 (75) 96 11/22/17 10:00 80 11/22/17 09:09 96 Nasal Cannula 3.00 11/22/17 08:00 98.8 82 22 121/60 (80) 94 11/22/17 08:00 82 I/O 11/22/17 11/22/17 11/22/17 11/23/17 11/23/17 11/23/17 07:00 15:00 23:00 07:00 15:00 23:00 Intake Total 1655 ml 405 ml 1900 ml 1740 ml Output Total 4000 ml 2900 ml 4825 ml Balance -2345 ml 405 ml -1000 ml -3085 ml Intake Oral 1250 ml 1800 ml 1440 ml IV Total 405 ml 405 ml 100 ml 300 ml Output Urine Total 3275 ml 2200 ml 3425 ml Drainage Total 725 ml 700 ml 1400 ml # Bowel Movements 1 1 2 Result Diagram: 11/22/17 0326 11/22/17 0959 Objective Remarks RLE: +vac. good seal. good cap refill distally, moves toes R leg. No tenderness R calf Assessment & Plan Assessment and Plan 1) Right Leg Infection s/p I&D with vac placement - POD 2 -vac settings: 125mmHg, low, 10min soak at 30mL, 2hr suction time -plan for repeat I&D tomorrow -micofungin added to Abx soak -npo after MN -sign consents; placed on chart. Gigi Rodríguez/First La[employer] BOSS Nov 23, 2017 07:11
[2017-11-23] MEDS: CHLORHEXIDINE 0.12% (ORAL KIT) 15 ML CUP MT SCH ×2 (08:00→20:00)
[2017-11-23] MEDS: SODIUM CHLORIDE 0.9% FLUSH 10 ML FLUSH IV FLUSH SCH ×2 (08:45→21:55)
[2017-11-23] MEDS: DEXTROSE 5% IN WATE 1000ML INJ 1,000 ML IV SCH ×2 (08:45→21:43)
[2017-11-23] MEDS: risperiDONE ODT 3 MG TAB PO SCH ×2 (08:45→23:00)
[2017-11-23] MEDS: FAMOTIDINE 20 MG/2 ML VIAL IV PUSH SCH ×2 (08:45→21:56)
[2017-11-23] MEDS: hydrOXYzine HCL 50 MG TAB PO SCH ×2 (08:46→21:47)
[2017-11-23] MEDS: DIVALPROEX SODIUM E.R. 500 MG TAB PO SCH (08:46)
[2017-11-23] MEDS: FLUCONAZOLE 400 MG PREMIX BAG 200 ML IV SCH (08:46)
[2017-11-23] MEDS: ARIPiprazole 5 MG TAB PO SCH (08:46)
[2017-11-23] MEDS: cefTRIAXone INJ 2,000 MG in SODIUM CHLORIDE 0.9% INJ 100 ML IV SCH (15:23)
--- NOTE | 2017-11-23 15:53 | HHI.PR ---
Subjective Remarks no complains Objective Vitals Vital Signs Date Time Temp Pulse Resp B/P (MAP) Pulse Ox O2 Delivery O2 Flow Rate FiO2 11/23/17 12:00 76 11/23/17 12:00 98.2 76 25 125/70 (88) 95 11/23/17 08:17 95 Nasal Cannula 2.00 11/23/17 08:00 70 11/23/17 08:00 97.9 72 39 118/64 (82) 95 11/23/17 07:00 95 Nasal Cannula 3.00 11/23/17 04:12 92 Nasal Cannula 3.00 11/23/17 04:00 96.6 70 32 126/67 (86) 99 11/23/17 04:00 70 11/23/17 00:00 82 11/23/17 00:00 98.9 82 26 147/63 (91) 99 11/22/17 20:00 80 11/22/17 20:00 98.2 86 33 134/76 (95) 96 11/22/17 19:00 95 Nasal Cannula 3.00 11/22/17 16:00 74 11/22/17 16:00 99.1 76 21 112/62 (79) 97 I/O 11/22/17 11/22/17 11/22/17 11/23/17 11/23/17 11/23/17 07:00 15:00 23:00 07:00 15:00 23:00 Intake Total 1655 ml 405 ml 1900 ml 1740 ml 905 ml Output Total 4000 ml 2900 ml 4825 ml Balance -2345 ml 405 ml -1000 ml -3085 ml 905 ml Intake Oral 1250 ml 1800 ml 1440 ml IV Total 405 ml 405 ml 100 ml 300 ml 905 ml Output Urine Total 3275 ml 2200 ml 3425 ml Drainage Total 725 ml 700 ml 1400 ml # Bowel Movements 1 1 2 Result Diagram: 11/22/17 0326 11/22/17 0959 Imaging Last Impressions Lower Extremity CT 11/15/17 0000 Signed Impressions: Service Date/Time: Wednesday, November 15, 2017 13:22 - CONCLUSION: Extensive fluid surrounding the quadriceps musculature of the right thigh as well as air within the collection anteriorly and laterally which raises the possibility of abscess/infection. Fluid is also noted extending into the region of the gluteus muscles on the right. Diffuse subcutaneous edema the right thigh is noted. Compartment syndrome should be ruled out. Jez Chowdhury MD Abdomen/Pelvis CT 11/15/17 0000 Signed Impressions: Service Date/Time: Wednesday, November 15, 2017 13:22 - CONCLUSION: The abnormal soft tissue mass now has compartmentalized fluid collections and absence of air in the right soft tissues of thigh and gluteal region. This probably represents improving inflammatory or infectious process such as abscess. Small bilateral pleural effusions persist with a new consolidation with air bronchogram in the left lower lobe. Ascitic fluid suggested in the pelvis Silvio Laguerre MD Chest X-Ray 11/14/17 0600 Signed Impressions: Service Date/Time: Tuesday, November 14, 2017 04:22 - CONCLUSION: 1. Left basilar airspace disease similar to November 12. Bertrand Smalls MD Lower Extremity Ultrasound 11/08/172011 Signed Impressions: Service Date/Time: Wednesday, November 08, 2017 20:41 - CONCLUSION: 1. Negative for deep venous thrombosis. There are mildly enlarged right inguinal lymph nodes. Bertrand Smalls MD Thoracic Spine MRI 11/08/17 0000 Signed Impressions: Service Date/Time: Wednesday, November 08, 2017 22:01 - CONCLUSION: 1. Small bilateral pleural effusions. 2. No signal abnormalities in the thoracic vertebral bodies and no evidence of focal disc disease. Jace Bird MD Lumbar Spine MRI 11/08/17 0000 Signed Impressions: Service Date/Time: Wednesday, November 08, 2017 22:01 - CONCLUSION: 1. No evidence of lumbar disc disease. 2. Soft tissue abnormality about the right gluteal region suggesting abscess with T2 prolongation and contrast enhancement ; this is incompletely included in the [id number] of the exam. 3. There is also abnormal signal within the marrow of the sacral and coccygeal marrow including contrast enhancement suggesting that the right thigh and gluteal abnormality may extend intraosseous, possibly osteomyelitis. Jace Bird MD Objective Remarks awake and alert, no acute distress anicteric no nuchal rigidity lungs- no rales regular rhythm abdomen soft, nontender aguirre in place right thigh- VAC in place, Urinary Catheter: Yes Assessment to: Continue Aguirre insert reason: Prolonged Immobilization A/P Assessment and Plan 41 years old male Severe sepsis secondary thigh abscess/OM s/p I&D with wound vac placement (due to mixed clara, rosalee) S/P multiple debridement and VAC application - on IV fluconazole - on Ceftriaxone and IV Flagyl - ID service ff - Orthopedics service ff- going for OR again tomorrow - on antibiotic/antifungal irrigation/soak per Ortho S/P acute respiratory failure- good sats at 2L NC Acute Anemia-from procdures- S/P transfusion - ff H and H - will repeat tomorrow post OR Hyperchloremic hypernatremia - resolved Schizoaffective disorder - On Depakote- po and IV and Risperidone - check depakote level now and adjust- consider DC IV DVT prophylaxis, GI prophylaxis Transfer to med/surg floor when bed available Mirna Pink MD Nov 23, 2017 15:53
[2017-11-24] VITALS: BP 135/71; PULSE 76; RESP 20; TEMP 97.5; O2SAT 93
[2017-11-24] MEDS: CHLORHEXIDINE GLUCONATE 2 % 1 PACK (2 CLOTHS) TOP SCH (04:00)
[2017-11-24] MEDS ORDERED: CHLORHEXIDINE GLUCONATE 2 % 1 PACK (2 CLOTHS) TOPICAL PRN (05:15)
[2017-11-24] MEDS ORDERED: LACTATED RINGER'S 1000 ML IV PRN (05:15)
[2017-11-24] MEDS ORDERED: POVIDONE IODINE 5% (ANTISEPSIS KIT) 4 APPLICATIONS EACH NARE PRN (05:15)
[2017-11-24] MEDS: METRONIDAZOLE 500 MG/100 ML ISONTONIC SOLN IV SCH ×3 (05:25→21:44)
[2017-11-24] MEDS: VALPROATE INJ 500 MG in SODIUM CHLORIDE 0.9% INJ 100 ML IV SCH ×3 (05:25→21:44)
[2017-11-24] MEDS: NYSTATIN 100,000 UNIT/GM CREAM 15 GM TOPICAL SCH ×4 (05:37→17:27)
--- NOTE | 2017-11-24 06:37 | PD.ORT.PN ---
Subjective Subjective Remarks POD 3 s/p I&D right thigh with vac placement stable. awake and alert. confused. no changes Objective Vitals Vital Signs Date Time Temp Pulse Resp B/P (MAP) Pulse Ox O2 Delivery O2 Flow Rate FiO2 11/24/17 04:00 18 11/24/17 00:00 97.5 76 20 135/71 (92) 93 11/23/17 20:04 97 Nasal Cannula 2.00 11/23/17 20:00 96.8 84 20 136/72 (93) 93 11/23/17 20:00 Nasal Cannula 2.00 11/23/17 16:00 98.5 85 30 122/57 (78) 94 11/23/17 16:00 85 11/23/17 12:00 76 11/23/17 12:00 98.2 76 25 125/70 (88) 95 11/23/17 08:17 95 Nasal Cannula 2.00 11/23/17 08:00 70 11/23/17 08:00 97.9 72 39 118/64 (82) 95 11/23/17 07:00 95 Nasal Cannula 3.00 I/O 11/23/17 11/23/17 11/23/17 11/24/17 11/24/17 11/24/17 07:00 15:00 23:00 07:00 15:00 23:00 Intake Total 1740 ml 905 ml 820 ml 240 ml Output Total 4825 ml 3925 ml 450 ml Balance -3085 ml 905 ml -3105 ml -210 ml Intake Oral 1440 ml 720 ml 240 ml IV Total 300 ml 905 ml 100 ml Output Urine Total 3425 ml 3500 ml 450 ml Drainage Total 1400 ml 425 ml # Bowel Movements 2 3 1 Result Diagram: 11/22/17 0326 11/22/17 0959 Objective Remarks RLE: +vac. good seal. good cap refill distally, moves toes R leg. No tenderness R calf Assessment & Plan Assessment and Plan 1) Right Leg Infection s/p I&D with vac placement - POD 3 -vac settings: 125mmHg, low, 10min soak at 30mL, 2hr suction time -plan for repeat I&D tomorrow -micofungin added to Abx soak -surgery this AM for repeat I&D Gigi Rodríguez/Suction Plate Carrier Cleaner PA Nov 24, 2017 06:37
[2017-11-24] MEDS ORDERED: VANCOMYCIN HCL 1000 MG VIAL ONE (07:50)
[2017-11-24] MEDS ORDERED: ceFAZolin 2 GM PREMIX 0 ML ONE (07:50)
[2017-11-24] MEDS ORDERED: GENTAMICIN SULFATE 80 MG/2 ML VIAL ONE (07:50)
[2017-11-24] MEDS: CHLORHEXIDINE 0.12% (ORAL KIT) 15 ML CUP MT SCH ×2 (07:51→20:08)
[2017-11-24 08:00] VITALS: BP 127/73; PULSE 84; RESP 20; TEMP 99.8; O2SAT 95
[2017-11-24] MEDS: risperiDONE ODT 3 MG TAB PO SCH ×2 (08:00→20:13)
[2017-11-24] MEDS: hydrOXYzine HCL 50 MG TAB PO SCH ×2 (08:05→20:13)
[2017-11-24] MEDS: ARIPiprazole 5 MG TAB PO SCH (08:05)
[2017-11-24] MEDS: FAMOTIDINE 20 MG/2 ML VIAL IV PUSH SCH ×2 (08:06→20:11)
[2017-11-24] MEDS: SODIUM CHLORIDE 0.9% FLUSH 10 ML FLUSH IV FLUSH SCH (08:06)
[2017-11-24] MEDS: FLUCONAZOLE 400 MG PREMIX BAG 200 ML IV SCH (10:00)
--- NOTE | 2017-11-24 10:49 | PD.OP ---
cc: Reynaldo West MD Operative Report Date of Surgery: Nov 24, 2017 Preoperative Diagnosis: Right hip, right thigh, right knee infection Postoperative Diagnosis: Procedure: Irrigation and debridement of right hip, right thigh, and right knee, secondary wound closure 18 cm, application of wound VAC dressing Surgeon: Reynaldo West Senior Java [id number] Developer(s): DEVON Mcfadden PA-C The surgical procedure was assisted by my physician assistant professor of drama. My P.A. presence was necessary throughout this case for the manipulation and positioning of the surgical extremity. My P.A. was assisting me throughout the duration of this procedure. The skill set of a physician assistant professor of drama was medically necessary to complete this procedure. During the surgical case the surgical assistant was working at the back table and the physician assistant professor of drama was directly assisting me. Operation and Findings: Patient was seen and examined preoperatively. Patient returns operating room today for scheduled repeat irrigation and debridement. Informed consent was confirmed preoperatively and the operative site was marked. He was brought to the operating room. He was given IV sedation and general anesthesia. He was placed in lateral decubitus position. The right leg and pelvic region were prepped with alcohol, followed by Hibiclens and draped in the usual sterile fashion. At this point attention was turned to the right hip. The skin, subcutaneous tissue, fascia and muscle were sharply debrided. Soft tissue and muscle were debrided sharply with rongeurs. The thigh was fully explored. There was significant improvement of the infection. There was minimal necrotic tissue today. A small part of the gluteus valerie muscle was excised. Small areas of muscle were also excised. Curettes, rongeurs and scalpel were used to debride necrotic tissue. At this point the the right thigh was explored. Small areas of fascia were debrided. Overall the muscles and tissue appeared to be healthy. Small areas of fascia from around the quadriceps muscles and tendons was also excised. All visible necrotic tissue was removed. After thorough debridement of all infected tissue, the wound was thoroughly irrigated with pulsatile lavage. 6 liters of sterile saline were used to irrigate the wound. At this was point the wound appeared to be relatively clean. At this point a portion of the wound was closed. Approximately 15 cm of the proximal incision and 3 cm of the distal wound were closed with 0 PDS, 3- 0 PDS and 3-0 nylon. Next, Attention was turned to VAC dressing. An extra-large VAC dressing was cut. VAC dressings were placed into each of the fascial planes. The VAC dressing was now cut to fit the remaining wound. The VAC dressing was stapled into place. A Veraflo VAC dressing was utilized to allow for infusion of antibiotics with saline. VAC dressing was sealed appropriately. The patient was transferred to the recovery room in stable condition. Needle and sponge counts were correct. Reynaldo West MD Nov 24, 2017 10:49
[2017-11-24 11:20] VITALS: O2SAT 98
[2017-11-24] MEDS ORDERED: DO NOT ADM ANY ANTICOAGULANT DRUGS PRN (11:25)
[2017-11-24] MEDS ORDERED: *RESP: ALBUTEROL 2.5 MG/3 ML NEB (PRN) PERIprocedural Use ONLY NEB ONE (11:35)
[2017-11-24] MEDS ORDERED: NEOSTIGMINE 5 MG/5 ML SYRINGE IV PUSH ONE (12:00)
[2017-11-24] MEDS ORDERED: GLYCOPYRROLATE 1 MG/5 ML SYRINGE IV PUSH ONE (12:00)
[2017-11-24] MEDS ORDERED: LIDOCAINE HCL 1% PF 5 ML SYRINGE OTHER ONE (12:00)
[2017-11-24] MEDS ORDERED: PHENYLEPH/NS 1000 MCG/10 ML SYR IV ONE (12:00)
[2017-11-24] MEDS ORDERED: PROPOFOL 200 MG/20 ML AMP IV ONE (12:00)
[2017-11-24] MEDS ORDERED: ROCURONIUM INJ 50 MG/5 ML SYRINGE IV PUSH ONE (12:00)
[2017-11-24] MEDS ORDERED: LACTATED RINGER'S 1000 ML INJ 1,000 ML IV ONE (12:00)
[2017-11-24] MEDS ORDERED: ONDANSETRON HCL 4 MG/2 ML VIAL IV ONE (12:00)
[2017-11-24] MEDS ORDERED: MORPHINE SULFATE 4 MG/ML INJ ONE (12:02)
[2017-11-24] MEDS: LACTATED RINGER'S 1000 ML INJ 1,000 ML IV SCH ×2 (12:18→20:42)
[2017-11-24] MEDS: HYDROmorphone HCL PF 2 MG/ML VIAL IV PUSH PRN ×2 (12:25→17:27)
[2017-11-24] MEDS: cefTRIAXone INJ 2,000 MG in SODIUM CHLORIDE 0.9% INJ 100 ML IV SCH (13:32)
--- NOTE | 2017-11-24 14:21 | HHI.PR ---
Subjective Remarks Follow up thigh abscess/wound, anemia. Patient just returned from the OR. No complaints at this time. States "I feel much better". Objective Vitals Vital Signs Date Time Temp Pulse Resp B/P (MAP) Pulse Ox O2 Delivery O2 Flow Rate FiO2 11/24/17 11:50 102 25 108/58 (75) 95 Nasal Cannula 5 11/24/17 11:35 102 25 114/57 (76) 95 Nasal Cannula 5 11/24/17 11:25 110 24 126/59 (81) 96 Nasal Cannula 5 11/24/17 11:20 98 40 11/24/17 11:15 97.4 104 30 118/58 (78) 95 Mechanical Ventilator 40 11/24/17 08:00 95 Nasal Cannula 2.00 11/24/17 08:00 99.8 84 20 127/73 (91) 95 11/24/17 04:00 18 11/24/17 00:00 97.5 76 20 135/71 (92) 93 11/23/17 20:04 97 Nasal Cannula 2.00 11/23/17 20:00 96.8 84 20 136/72 (93) 93 11/23/17 20:00 Nasal Cannula 2.00 11/23/17 16:00 98.5 85 30 122/57 (78) 94 11/23/17 16:00 85 I/O 11/23/17 11/23/17 11/23/17 11/24/17 11/24/17 11/24/17 07:00 15:00 23:00 07:00 15:00 23:00 Intake Total 1740 ml 905 ml 820 ml 240 ml 1000 ml Output Total 4825 ml 3925 ml 2100 ml 925 ml Balance -3085 ml 905 ml -3105 ml -1860 ml 75 ml Intake Oral 1440 ml 720 ml 240 ml 0 ml IV Total 300 ml 905 ml 100 ml Other 1000 ml Output Urine Total 3425 ml 3500 ml 2100 ml 900 ml Drainage Total 1400 ml 425 ml Estimated Blood Loss 25 ml # Bowel Movements 2 3 1 Result Diagram: 11/22/17 0326 11/22/17 0959 Imaging Last Impressions Lower Extremity CT 11/15/17 0000 Signed Impressions: Service Date/Time: Wednesday, November 15, 2017 13:22 - CONCLUSION: Extensive fluid surrounding the quadriceps musculature of the right thigh as well as air within the collection anteriorly and laterally which raises the possibility of abscess/infection. Fluid is also noted extending into the region of the gluteus muscles on the right. Diffuse subcutaneous edema the right thigh is noted. Compartment syndrome should be ruled out. Jez Chowdhury MD Abdomen/Pelvis CT 11/15/17 0000 Signed Impressions: Service Date/Time: Wednesday, November 15, 2017 13:22 - CONCLUSION: The abnormal soft tissue mass now has compartmentalized fluid collections and absence of air in the right soft tissues of thigh and gluteal region. This probably represents improving inflammatory or infectious process such as abscess. Small bilateral pleural effusions persist with a new consolidation with air bronchogram in the left lower lobe. Ascitic fluid suggested in the pelvis Silvio Laguerre MD Chest X-Ray 11/14/17 0600 Signed Impressions: Service Date/Time: Tuesday, November 14, 2017 04:22 - CONCLUSION: 1. Left basilar airspace disease similar to November 12. Bertrand Smalls MD Lower Extremity Ultrasound 11/08/172011 Signed Impressions: Service Date/Time: Wednesday, November 08, 2017 20:41 - CONCLUSION: 1. Negative for deep venous thrombosis. There are mildly enlarged right inguinal lymph nodes. Bertrand Smalls MD Thoracic Spine MRI 11/08/17 0000 Signed Impressions: Service Date/Time: Wednesday, November 08, 2017 22:01 - CONCLUSION: 1. Small bilateral pleural effusions. 2. No signal abnormalities in the thoracic vertebral bodies and no evidence of focal disc disease. Jace Bird MD Lumbar Spine MRI 11/08/17 0000 Signed Impressions: Service Date/Time: Wednesday, November 08, 2017 22:01 - CONCLUSION: 1. No evidence of lumbar disc disease. 2. Soft tissue abnormality about the right gluteal region suggesting abscess with T2 prolongation and contrast enhancement ; this is incompletely included in the [id number] of the exam. 3. There is also abnormal signal within the marrow of the sacral and coccygeal marrow including contrast enhancement suggesting that the right thigh and gluteal abnormality may extend intraosseous, possibly osteomyelitis. Jace Bird MD Objective Remarks General: No acute distress. Heart: Regular rate and rhythm. No murmur. Lungs: Clear to auscultation bilaterally. No wheezes, rales, or rhonchi. Breathing is nonlabored. Abdomen: Soft, nontender, nondistended. Extremities: No lower extremity edema. Wound VAC on the right thigh. Psych: Alert, answers questions appropriately. Procedures 11/09/17 incision and drainage, irrigation and debridement of right hip abscess with placement of VAC dressing 11/11/17 removal of VAC device, irrigation and debridement of right gluteal hip abscess with placement of drain and replacement of VAC 11/16/17 irrigation and debridement of pelvic infection and abscess, irrigation and debridement of right thigh abscess, right knee arthrotomy with irrigation and debridement 11/16/17 incision and drainage, irrigation and debridement of complex lower extremity abscess with removal of subcutaneous tissue, fascia, and muscle, with application of VAC device 11/18/17 irrigation and debridement of right pelvis and hip, irrigation and debridement of right thigh, irrigation and debridement of right knee 11/21/17 irrigation and debridement of right hip, right thigh, and right knee. Application of wound VAC dressing 11/24/17 irrigation and debridement of right hip, right thigh, right knee. Secondary wound closure, application of wound VAC Urinary Catheter: Yes Assessment to: Continue Chaidez insert reason: Surgical/Invasive Proced Vascular Central Line Catheter: No A/P Assessment and Plan 1. Severe sepsis: Secondary to thigh abscess. Status post multiple surgeries. Wound VAC in place. Appreciate general surgery, orthopedic surgery recommendations. Continue antibiotics per infectious disease. 2. Acute respiratory failure: Resolved. Now on 2 L nasal cannula. 3. Acute anemia secondary to blood loss from procedures. Posttransfusion. H& H improved. 4. Hypernatremia: Resolved. 5. Schizoaffective disorder: Continue Depakote, risperidone, Abilify. 6. GI prophylaxis: Famotidine. 7. DVT prophylaxis: SCDs, TORSTEN mccrary. Avoid chemical prophylaxis secondary to multiple surgical procedures. Enrique Sanchez MD Nov 24, 2017 14:21
[2017-11-24 16:00] VITALS: BP 103/62; PULSE 79; RESP 20; TEMP 97.5; O2SAT 96
[2017-11-24 18:11] VITALS: O2SAT 96
[2017-11-24 20:00] VITALS: BP 122/68; PULSE 84; RESP 18; TEMP 96.8; O2SAT 96
[2017-11-25] VITALS (8 sets, daily range): BP systolic 114–129; BP diastolic 60–75; PULSE 88–100; RESP 16–20; TEMP 96.8–100; O2SAT 90–100
[2017-11-25] MEDS: HYDROmorphone HCL PF 2 MG/ML VIAL IV PUSH PRN (02:02)
[2017-11-25] MEDS: NYSTATIN 100,000 UNIT/GM CREAM 15 GM TOPICAL SCH ×4 (02:02→17:58)
[2017-11-25] MEDS: CHLORHEXIDINE GLUCONATE 2 % 1 PACK (2 CLOTHS) TOP SCH (04:00)
[2017-11-25] MEDS: METRONIDAZOLE 500 MG/100 ML ISONTONIC SOLN IV SCH (06:02)
[2017-11-25] MEDS: VALPROATE INJ 500 MG in SODIUM CHLORIDE 0.9% INJ 100 ML IV SCH ×3 (06:02→22:48)
[2017-11-25] MEDS: SODIUM CHLORIDE 0.9% FLUSH 10 ML FLUSH IV FLUSH SCH ×3 (06:07→21:00)
[2017-11-25] MEDS: LACTATED RINGER'S 1000 ML INJ 1,000 ML IV SCH ×3 (06:42→22:48)
--- NOTE | 2017-11-25 07:04 | PD.ORT.PN ---
Subjective Subjective Remarks POD 1 s/p I&D right thigh with vac placement and partial wound closure stable. awake and alert. reports he feels good. Objective Vitals Vital Signs Date Time Temp Pulse Resp B/P (MAP) Pulse Ox O2 Delivery O2 Flow Rate FiO2 11/25/17 04:00 100.0 99 20 116/66 (83) 94 11/25/17 02:53 16 11/25/17 00:00 99.2 88 18 114/60 (78) 95 11/24/17 20:31 Nasal Cannula 2.00 11/24/17 20:00 96.8 84 18 122/68 (86) 96 11/24/17 18:11 96 Nasal Cannula 2.00 11/24/17 16:00 97.5 79 20 103/62 (76) 96 11/24/17 11:50 102 25 108/58 (75) 95 Nasal Cannula 5 11/24/17 11:35 102 25 114/57 (76) 95 Nasal Cannula 5 11/24/17 11:25 110 24 126/59 (81) 96 Nasal Cannula 5 11/24/17 11:20 98 40 11/24/17 11:15 97.4 104 30 118/58 (78) 95 Mechanical Ventilator 40 11/24/17 08:00 95 Nasal Cannula 2.00 11/24/17 08:00 99.8 84 20 127/73 (91) 95 I/O 11/24/17 11/24/17 11/24/17 11/25/17 11/25/17 11/25/17 07:00 15:00 23:00 07:00 15:00 23:00 Intake Total 240 ml 1100 ml 320 ml 2414 ml Output Total 2100 ml 925 ml 575 ml 2250 ml Balance -1860 ml 175 ml -255 ml 164 ml Intake Oral 240 ml 0 ml 120 ml 2414 ml IV Total 100 ml 200 ml Other 1000 ml Output Urine Total 2100 ml 900 ml 400 ml 2250 ml Drainage Total 175 ml Estimated Blood Loss 25 ml # Bowel Movements 1 0 0 Result Diagram: 11/22/17 0326 11/22/17 0959 Objective Remarks RLE: +vac. good seal. good cap refill distally, moves toes R leg. No tenderness R calf Assessment & Plan Assessment and Plan 1) Right Leg Infection s/p I&D with vac placement with partial wound closure - POD 1 -vac settings: 125mmHg, low, 10min soak at 20mL, 2hr suction time -maintain vac at all times -plan for repeat I&D jeimy/Gigi Alicea/First Laverne BOSS Nov 25, 2017 07:04
[2017-11-25] MEDS: hydrOXYzine HCL 50 MG TAB PO SCH ×2 (10:18→22:52)
[2017-11-25] MEDS: ARIPiprazole 5 MG TAB PO SCH (10:18)
[2017-11-25] MEDS: FAMOTIDINE 20 MG/2 ML VIAL IV PUSH SCH ×2 (10:19→22:51)
[2017-11-25] MEDS: CHLORHEXIDINE 0.12% (ORAL KIT) 15 ML CUP MT SCH ×2 (10:20→20:00)
[2017-11-25] MEDS: FLUCONAZOLE 400 MG PREMIX BAG 200 ML IV SCH (10:21)
[2017-11-25] MEDS: risperiDONE ODT 3 MG TAB PO SCH ×2 (10:35→21:00)
[2017-11-25 11:19] LABS: AUTOMATED NEUTROPHIL # 9.5 TH/MM3 (1.8-7.7); BASOPHIL # 0.1 TH/MM3 (0-0.2); BASOPHIL % 0.7 % (0.0-2.0); LYMPH % 5.5 % (9.0-44.0); LYMPHOCYTE # 0.6 TH/MM3 (1.0-4.8); MEAN CELL VOLUME 80.8 FL (80.0-100.0); MEAN CORPUSCULAR HEMOGLOBIN 27.6 PG (27.0-34.0); MEAN CORPUSCULAR HGB CONC 34.1 % (32.0-36.0); MEAN PLATELET VOLUME 8.6 FL (7.0-11.0); MONO % 7.2 % (0.0-8.0); MONOCYTE # 0.8 TH/MM3 (0-0.9); NEUT % 86.6 % (16.0-70.0); PLATELET COUNT 225 TH/MM3 (150-450); RED BLOOD COUNT 2.58 MIL/MM3 (4.50-5.90); RED CELL DISTRIBUTION WIDTH 18.6 % (11.6-17.2)
[2017-11-25 11:29] LABS: HEMOGLOBIN 7.1 GM/DL (13.0-17.0)
[2017-11-25 11:30] LABS: HEMATOCRIT 20.9 % (39.0-51.0)
--- NOTE | 2017-11-25 12:25 | RADRPT ---
EXAM DATE/TIME: 11/25/2017 11:58 [facility] COMPARISON: CHEST SINGLE AP, November 14, 2017, 4:22. INDICATIONS : Evaluate for pneumonia. MEDICAL HISTORY : Schizophrenia. Bipolar disorder. SURGICAL HISTORY : None. ENCOUNTER: Subsequent ACUITY: 2 weeks PAIN SCORE: 0/10 LOCATION: Bilateral chest FINDINGS: A single view of the chest demonstrates bibasilar patchy opacities. Heart and the upper limits of nor mal in size. Osseous structures are intact. CONCLUSION: 1. Bibasilar patchy opacities could be atelectasis or infiltrate. Amaury Lee MD on November 25, 2017 at 12:22 Board Certified Radiologist. This report was verified electronically.
[2017-11-25] MEDS ORDERED: SODIUM CHLOR 0.9% 250 ML INJ 250 ML IV ONE (13:00)
--- NOTE | 2017-11-25 13:01 | HHI.PR ---
Subjective Remarks Follow up anemia. Patient's hemoglobin is decreased today. No reported active bleeding. Patient reports diarrhea. Objective Vitals Vital Signs Date Time Temp Pulse Resp B/P (MAP) Pulse Ox O2 Delivery O2 Flow Rate FiO2 11/25/17 08:11 Nasal Cannula 2.00 11/25/17 08:00 97.5 96 16 114/64 (81) 92 11/25/17 07:00 92 Nasal Cannula 5.00 11/25/17 04:00 100.0 99 20 116/66 (83) 94 11/25/17 02:53 16 11/25/17 00:00 99.2 88 18 114/60 (78) 95 11/24/17 20:31 Nasal Cannula 2.00 11/24/17 20:00 96.8 84 18 122/68 (86) 96 11/24/17 18:11 96 Nasal Cannula 2.00 11/24/17 16:00 97.5 79 20 103/62 (76) 96 I/O 11/24/17 11/24/17 11/24/17 11/25/17 11/25/17 11/25/17 07:00 15:00 23:00 07:00 15:00 23:00 Intake Total 240 ml 1100 ml 320 ml 2414 ml Output Total 2100 ml 925 ml 575 ml 2250 ml Balance -1860 ml 175 ml -255 ml 164 ml Intake Oral 240 ml 0 ml 120 ml 2414 ml IV Total 100 ml 200 ml Other 1000 ml Output Urine Total 2100 ml 900 ml 400 ml 2250 ml Drainage Total 175 ml Estimated Blood Loss 25 ml # Bowel Movements 1 0 0 Result Diagram: 11/25/17 1103 11/22/17 0959 Imaging Last Impressions Lower Extremity CT 11/15/17 0000 Signed Impressions: Service Date/Time: Wednesday, November 15, 2017 13:22 - CONCLUSION: Extensive fluid surrounding the quadriceps musculature of the right thigh as well as air within the collection anteriorly and laterally which raises the possibility of abscess/infection. Fluid is also noted extending into the region of the gluteus muscles on the right. Diffuse subcutaneous edema the right thigh is noted. Compartment syndrome should be ruled out. Jez Chowdhury MD Abdomen/Pelvis CT 11/15/17 0000 Signed Impressions: Service Date/Time: Wednesday, November 15, 2017 13:22 - CONCLUSION: The abnormal soft tissue mass now has compartmentalized fluid collections and absence of air in the right soft tissues of thigh and gluteal region. This probably represents improving inflammatory or infectious process such as abscess. Small bilateral pleural effusions persist with a new consolidation with air bronchogram in the left lower lobe. Ascitic fluid suggested in the pelvis Silvio Laguerre MD Chest X-Ray 11/14/17 0600 Signed Impressions: Service Date/Time: Tuesday, November 14, 2017 04:22 - CONCLUSION: 1. Left basilar airspace disease similar to November 12. Bertrand Smalls MD Lower Extremity Ultrasound 11/08/172011 Signed Impressions: Service Date/Time: Wednesday, November 08, 2017 20:41 - CONCLUSION: 1. Negative for deep venous thrombosis. There are mildly enlarged right inguinal lymph nodes. Bertrand Smalls MD Thoracic Spine MRI 11/08/17 0000 Signed Impressions: Service Date/Time: Wednesday, November 08, 2017 22:01 - CONCLUSION: 1. Small bilateral pleural effusions. 2. No signal abnormalities in the thoracic vertebral bodies and no evidence of focal disc disease. Jace Bird MD Lumbar Spine MRI 11/08/17 0000 Signed Impressions: Service Date/Time: Wednesday, November 08, 2017 22:01 - CONCLUSION: 1. No evidence of lumbar disc disease. 2. Soft tissue abnormality about the right gluteal region suggesting abscess with T2 prolongation and contrast enhancement ; this is incompletely included in the [id number] of the exam. 3. There is also abnormal signal within the marrow of the sacral and coccygeal marrow including contrast enhancement suggesting that the right thigh and gluteal abnormality may extend intraosseous, possibly osteomyelitis. Jace Bird MD Objective Remarks General: No acute distress. Heart: Regular rate and rhythm. No murmur. Lungs: Diminished in both bases. Scattered rhonchi. Breathing is nonlabored. Abdomen: Soft, nontender, nondistended. Extremities: No lower extremity edema. Wound VAC on the right thigh. Psych: Alert, answers questions appropriately. Procedures 11/09/17 incision and drainage, irrigation and debridement of right hip abscess with placement of VAC dressing 11/11/17 removal of VAC device, irrigation and debridement of right gluteal hip abscess with placement of drain and replacement of VAC 11/16/17 irrigation and debridement of pelvic infection and abscess, irrigation and debridement of right thigh abscess, right knee arthrotomy with irrigation and debridement 11/16/17 incision and drainage, irrigation and debridement of complex lower extremity abscess with removal of subcutaneous tissue, fascia, and muscle, with application of VAC device 11/18/17 irrigation and debridement of right pelvis and hip, irrigation and debridement of right thigh, irrigation and debridement of right knee 11/21/17 irrigation and debridement of right hip, right thigh, and right knee. Application of wound VAC dressing 11/24/17 irrigation and debridement of right hip, right thigh, right knee. Secondary wound closure, application of wound VAC Urinary Catheter: Yes Assessment to: Continue Chaidez insert reason: Surgical/Invasive Proced Vascular Central Line Catheter: No A/P Assessment and Plan 1. Severe sepsis: Secondary to thigh abscess. Status post multiple surgeries. Wound VAC in place. Appreciate general surgery, orthopedic surgery recommendations. Continue antibiotics per infectious disease. Discussed with Dr. Upton. 2. Acute respiratory failure: Resolved. Now on 2 L nasal cannula. CXR shows bibasilar patchy opacities. 3. Acute anemia secondary to blood loss from procedures: H/H decreased. Transfuse 2 units PRBCs. 4. Hypernatremia: Resolved. 5. Schizoaffective disorder: Continue Depakote, risperidone, Abilify. 6. GI prophylaxis: Famotidine. 7. DVT prophylaxis: TORSTEN Abel. Avoid chemical prophylaxis secondary to multiple surgical procedures. Enrique Sanchez MD Nov 25, 2017 13:01
--- NOTE | 2017-11-25 13:59 | HHI.IDPN ---
Subjective Subjective Remarks is a 41 y/o CM with PMHx of Schizoaffective disorder on Haldol IM injections in bilateral buttocks. Patient reports getting these as outpatient by unknown doctor (different doctor each time per patient). Approx 1 month back after he received his last Haldol IM shot in right buttock patient noticed pain and swelling and decreased range of motion. Patient continued to receive Haldol shots in left buttock due to pain in right buttock. Patient reports his ability to move around has declined since last 1 week and he needs help with ADL phuong dressing himself due to significant pain on right lower extremity. Patient reports fevers chills and night sweats for the last 1 week prior to admission and significant worsening pain and swelling of his right lower extremity. Patient's past medical history is also significant for right dorsum of the foot marsh as a child as well as neuropathy. Per review of records it appears the patient's mother has reported that he hasn't been feeling well since July and has presented to another emergency department related to back and hip pain. 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 Patient reports that he was on a bowel regimen to help with her constipation and that has been a challenge to maintain continence. Patient has had incontinence of stool and intermittently incontinence of urine since July. With this background patient presents to the emergency department for evaluation of difficulty walking, generalized weakness, weight loss loss of appetite. Reportedly while in the triage area his blood pressure was in the 70s systolic. Patient also reported abdominal pain in the lower quadrants radiating to his bilateral lower extremity but more so on the right. Patient reported nausea decrease in appetite and loss of about 20 pound weight in the last 1 month. Patient denies any recent intravenous drug abuse. Patient does endorse to receiving intramuscular Haldol in bilateral buttocks. The last right buttock Haldol injection was approximately 1 month back. Patient reports having weakness of bilateral lower extremities more so on the right especially because of sharp shooting pains down his right leg. In the emergency department patient received a total of 4 L of IV fluids as a part of severe sepsis workup and management. Cultures drawn at admission are currently pending. A CT scan of the abdomen showed appearance of soft tissue mass of the proximal thigh and gluteal region with fluid and gas tracking down the rectus muscle into the anterior thigh muscle. This is concerning for infectious or necrotic process. Infectious disease consulted for evaluation and management of severe sepsis, right buttock abscess possible osteomyelitis. Overnight events reviewed with RN Low-grade fever 100.0 Has a wound VAC to the right lower extremity WBC improved. No rash RN reports patient had liquid BM. Antibiotics Current Medications Medications (Trade) Dose Ordered Sig/Mega Route Start Time Stop Time Status Last Admin (Depakote Dr) 500 mg BID PO 11/09/17 09:00 Future Hold 11/09/17 09:22 (Atarax) 50 mg BID PO 11/09/17 09:00 11/25/17 10:18 (risperDAL) 3 mg DAILY PO 11/09/17 09:00 Future Hold 11/13/17 08:02 (NS Flush) 2 ml UNSCH PRN IV FLUSH 11/08/17 23:15 (NS Flush) 2 ml BID IV FLUSH 11/09/17 09:00 11/25/17 10:20 (Tylenol) 650 mg Q6H PRN PO 11/08/17 23:15 11/11/17 04:42 (Pepcid Inj) 20 mg Q12HR IV PUSH 11/09/17 09:00 11/25/17 10:19 (Zofran Inj) 4 mg Q6H PRN IV PUSH 11/08/17 23:15 (Restoril) 15 mg HS PRN PO 11/08/17 23:15 11/19/17 21:35 (Duoneb Neb) 1 ampule Q2HR NEB PRN INH 11/08/17 23:15 11/20/17 14:49 Miscellaneous Information 1 Q361D XX 11/08/17 23:15 11/08/17 01:00 (Chlorhexidine 2% Cloth) Taper DAILY@04 TOP 11/09/17 04:00 11/05/18 03:59 11/25/17 04:00 (Chlorhexidine 2% Cloth) 3 pack UNSCH PRN TOP 11/08/17 23:15 (Peridex 0.12% Liq) 15 ml BID@08,20 MT 11/09/17 20:00 11/25/17 10:20 (Depakene Liq) 500 mg BID OG-TUBE 11/09/17 23:00 Future Hold 11/13/17 08:02 (Dilaudid Pf Inj) 1 mg Q3H PRN IV PUSH 11/13/17 16:00 11/25/17 02:02 (risperDAL M-TAB) 3 mg Q12HR PO 11/13/17 21:00 11/25/17 10:35 Valproate Sodium 500 mg/Sodium Chloride 105 ml @ 105 mls/hr Q8HR IV 11/13/17 22:00 11/25/17 06:02 Metronidazole 100 ml @ 100 mls/hr Q8HR IV 11/14/17 16:00 11/25/17 06:02 (Mycostatin Cream) 1 applic Q6HR TOPICAL 11/15/17 18:00 11/25/17 13:43 (Depakote Er) 500 mg BID PO 11/17/17 14:45 Future Hold 11/23/17 08:46 (Abilify) 5 mg DAILY PO 11/17/17 14:45 11/25/17 10:18 Fluconazole/ Sodium Chloride 200 ml @ 100 mls/hr Q24H IV 11/20/17 10:00 11/25/17 10:21 Vancomycin HCl 4000 mg/ Tobramycin Sulfate 2400 mg/ Micafungin Sodium 1000 mg/Sodium Chloride 3,000 ml @ 0 mls/hr [employer]IST[employer] IRRIGATION 11/21/17 07:45 Ceftriaxone Sodium 2000 mg/ Sodium Chloride 100 ml @ 200 mls/hr Q24H IV 11/22/17 15:00 11/24/17 13:32 Lactated Ringer's 1,000 ml @ 100 mls/hr Q10H IV 11/24/17 10:42 11/24/17 12:18 Sodium Chloride 250 ml @ 15 mls/hr ONCE ONCE IV 11/25/17 13:00 11/26/17 05:39 11/25/17 13:38 Lines Line sites with no evidence of infection. Past Medical History Neuropathy involving the right leg h/o marsh right foot dorsum as a child. Schizoaffective disorder, Depressions Anxiety Past Surgical History None per patient. Allergies: Coded Allergies: diphenhydramine (Verified Adverse Reaction, Unknown, 11/08/17) Objective . Vital Signs Date Time Temp Pulse Resp B/P (MAP) Pulse Ox O2 Delivery O2 Flow Rate FiO2 11/25/17 12:00 98.4 91 18 127/75 (92) 93 11/25/17 08:11 Nasal Cannula 2.00 11/25/17 08:00 97.5 96 16 114/64 (81) 92 11/25/17 07:00 92 Nasal Cannula 5.00 11/25/17 04:00 100.0 99 20 116/66 (83) 94 11/25/17 02:53 16 11/25/17 00:00 99.2 88 18 114/60 (78) 95 11/24/17 20:31 Nasal Cannula 2.00 11/24/17 20:00 96.8 84 18 122/68 (86) 96 11/24/17 18:11 96 Nasal Cannula 2.00 11/24/17 16:00 97.5 79 20 103/62 (76) 96 . Laboratory Tests Test 11/25/17 11:03 White Blood Count 11.0 TH/MM3 Red Blood Count 2.58 MIL/MM3 Hemoglobin 7.1 GM/DL Hematocrit 20.9 % Mean Corpuscular Volume 80.8 FL Mean Corpuscular Hemoglobin 27.6 PG Mean Corpuscular Hemoglobin Concent 34.1 % Red Cell Distribution Width 18.6 % Platelet Count 225 TH/MM3 Mean Platelet Volume 8.6 FL Neutrophils (%) (Auto) 86.6 % Lymphocytes (%) (Auto) 5.5 % Monocytes (%) (Auto) 7.2 % Eosinophils (%) (Auto) 0.0 % Basophils (%) (Auto) 0.7 % Neutrophils # (Auto) 9.5 TH/MM3 Lymphocytes # (Auto) 0.6 TH/MM3 Monocytes # (Auto) 0.8 TH/MM3 Eosinophils # (Auto) 0.0 TH/MM3 Basophils # (Auto) 0.1 TH/MM3 CBC Comment DIFF FINAL Differential Comment Imaging Lower Extremity CT 11/15/17 0000 Signed Impressions: Service Date/Time: Wednesday, November 15, 2017 13:22 - CONCLUSION: Extensive fluid surrounding the quadriceps musculature of the right thigh as well as air within the collection anteriorly and laterally which raises the possibility of abscess/infection. Fluid is also noted extending into the region of the gluteus muscles on the right. Diffuse subcutaneous edema the right thigh is noted. Compartment syndrome should be ruled out. Jez Chowdhury MD Abdomen/Pelvis CT 11/15/17 0000 Signed Impressions: Service Date/Time: Wednesday, November 15, 2017 13:22 - CONCLUSION: The abnormal soft tissue mass now has compartmentalized fluid collections and absence of air in the right soft tissues of thigh and gluteal region. This probably represents improving inflammatory or infectious process such as abscess. Small bilateral pleural effusions persist with a new consolidation with air bronchogram in the left lower lobe. Ascitic fluid suggested in the pelvis Silvio Laguerre MD Chest X-Ray 11/14/17 0600 Signed Impressions: Service Date/Time: Tuesday, November 14, 2017 04:22 - CONCLUSION: 1. Left basilar airspace disease similar to November 12. Bertrand Smalls MD Lower Extremity Ultrasound 11/08/172011 Signed Impressions: Service Date/Time: Wednesday, November 08, 2017 20:41 - CONCLUSION: 1. Negative for deep venous thrombosis. There are mildly enlarged right inguinal lymph nodes. Bertrand Smalls MD Thoracic Spine MRI 11/08/17 0000 Signed Impressions: Service Date/Time: Wednesday, November 08, 2017 22:01 - CONCLUSION: 1. Small bilateral pleural effusions. 2. No signal abnormalities in the thoracic vertebral bodies and no evidence of focal disc disease. Jace Bird MD Lumbar Spine MRI 11/08/17 0000 Signed Impressions: Service Date/Time: Wednesday, November 08, 2017 22:01 - CONCLUSION: 1. No evidence of lumbar disc disease. 2. Soft tissue abnormality about the right gluteal region suggesting abscess with T2 prolongation and contrast enhancement ; this is incompletely included in the [id number] of the exam. 3. There is also abnormal signal within the marrow of the sacral and coccygeal marrow including contrast enhancement suggesting that the right thigh and gluteal abnormality may extend intraosseous, possibly osteomyelitis. Jace Bird MD Last Impressions Chest X-Ray 11/09/17 0000 Signed Impressions: Service Date/Time: Thursday, November 09, 2017 16:23 - CONCLUSION: Minimal infiltrate left base new from comparison study. Rodrick Ch MD FACR Lower Extremity Ultrasound 11/08/172011 Signed Impressions: Service Date/Time: Wednesday, November 08, 2017 20:41 - CONCLUSION: 1. Negative for deep venous thrombosis. There are mildly enlarged right inguinal lymph nodes. Bertrand Smalls MD Abdomen/Pelvis CT 11/08/172011 Signed Impressions: Service Date/Time: Wednesday, November 08, 2017 22:54 - CONCLUSION: 1. Abnormal appearance of the soft tissues of the proximal thigh and gluteal region with fluid and gas tracking between the rectus muscles and the anterior thigh muscles. No focal abnormal areas of enhancement. The combination of fluid and gas suggests either an infectious or necrotic process. 2. Nonobstructing small calcified stone mid pole left kidney and multiple left renal cysts. 3. Small bilateral pleural effusions. Jace Bird MD Thoracic Spine MRI 11/08/17 0000 Signed Impressions: Service Date/Time: Wednesday, November 08, 2017 22:01 - CONCLUSION: 1. Small bilateral pleural effusions. 2. No signal abnormalities in the thoracic vertebral bodies and no evidence of focal disc disease. Jace Bird MD Lumbar Spine MRI 11/08/17 0000 Signed Impressions: Service Date/Time: Wednesday, November 08, 2017 22:01 - CONCLUSION: 1. No evidence of lumbar disc disease. 2. Soft tissue abnormality about the right gluteal region suggesting abscess with T2 prolongation and contrast enhancement ; this is incompletely included in the [id number] of the exam. 3. There is also abnormal signal within the marrow of the sacral and coccygeal marrow including contrast enhancement suggesting that the right thigh and gluteal abnormality may extend intraosseous, possibly osteomyelitis. Jace Bird MD Physical Exam GENERAL: Awake and interactive, not in respiratory distress. SKIN: Warm and dry, no generalized rash HEAD: Atraumatic. Normocephalic. No temporal or scalp tenderness. EYES: Pupils equal round and reactive. Extraocular motions intact. No scleral icterus. No injection or drainage. ENT: Dry oral mucosa, no nasal discharge NECK: Trachea midline. Supple, nontender, no meningeal signs. CARDIOVASCULAR: HS audible. RESPIRATORY: Diffuse rhonchi bilaterally GASTROINTESTINAL: Abdomen soft, non-tender, nondistended. MUSCULOSKELETAL: RLE with wound vac in place. surrounding erythema and induration decreased. Groin with edema noted. NEUROLOGICAL: Awake and alert and interactive. Grossly nonfocal Psych cooperative IV line sites with no e.o infection. Assessment & Plan Remarks Severe sepsis present on admission. Staph coag neg bacteremia: 1 out of 4 bottles likely contaminant. E.coli and Strep, mixed anaerobes (beta lactamase positive) and Paz albicans , right thigh abscess/osteomyelitis, xtending to pelvis/hip and R knee - S/P multiple debridements Schizoaffective disorder receives IM Haldol injections in the buttocks. Lower extremity neuropathy. Weight loss, loss of appetite Diarrhea check stool C. difficile Recommendations: Continue Ceftriaxone IV Change Flagyl to oral Change Diflucan to oral Follow cultures Follow clinically. alfonso SMITH Discussed with María Felipe MD Nov 25, 2017 13:59
[2017-11-25] MEDS: metroNIDAZOLE 500 MG TAB PO SCH ×2 (17:49→22:51)
[2017-11-25] MEDS: cefTRIAXone INJ 2,000 MG in SODIUM CHLORIDE 0.9% INJ 100 ML IV SCH (17:56)
[2017-11-26] VITALS (9 sets, daily range): BP systolic 111–135; BP diastolic 62–83; PULSE 81–92; RESP 18–20; TEMP 96.7–99.6; O2SAT 91–99
[2017-11-26] MEDS: CHLORHEXIDINE GLUCONATE 2 % 1 PACK (2 CLOTHS) TOP SCH (04:00)
[2017-11-26] MEDS: metroNIDAZOLE 500 MG TAB PO SCH ×3 (05:56→21:53)
[2017-11-26] MEDS: VALPROATE INJ 500 MG in SODIUM CHLORIDE 0.9% INJ 100 ML IV SCH ×3 (05:56→21:53)
[2017-11-26] MEDS: NYSTATIN 100,000 UNIT/GM CREAM 15 GM TOPICAL SCH ×4 (06:00→17:24)
[2017-11-26] MEDS: CHLORHEXIDINE 0.12% (ORAL KIT) 15 ML CUP MT SCH ×2 (08:00→20:00)
[2017-11-26] MEDS: SODIUM CHLORIDE 0.9% FLUSH 10 ML FLUSH IV FLUSH SCH ×2 (08:01→21:55)
[2017-11-26] MEDS: FLUCONAZOLE 200 MG TAB PO SCH (08:12)
[2017-11-26] MEDS: hydrOXYzine HCL 50 MG TAB PO SCH ×2 (08:12→21:53)
[2017-11-26] MEDS: ARIPiprazole 5 MG TAB PO SCH (08:12)
[2017-11-26] MEDS: risperiDONE ODT 3 MG TAB PO SCH ×2 (08:13→21:54)
[2017-11-26] MEDS: FAMOTIDINE 20 MG/2 ML VIAL IV PUSH SCH ×2 (08:13→21:49)
[2017-11-26 09:37] LABS: AUTOMATED NEUTROPHIL # 7.3 TH/MM3 (1.8-7.7); BASOPHIL # 0.1 TH/MM3 (0-0.2); BASOPHIL % 0.7 % (0.0-2.0); EOSINOPHIL % 0.1 % (0.0-4.0); HEMATOCRIT 22.8 % (39.0-51.0); HEMOGLOBIN 7.8 GM/DL (13.0-17.0); LYMPH % 7.5 % (9.0-44.0); LYMPHOCYTE # 0.7 TH/MM3 (1.0-4.8); MEAN CELL VOLUME 79.9 FL (80.0-100.0); MEAN CORPUSCULAR HEMOGLOBIN 27.4 PG (27.0-34.0); MEAN CORPUSCULAR HGB CONC 34.3 % (32.0-36.0); MEAN PLATELET VOLUME 8.5 FL (7.0-11.0); MONO % 8.3 % (0.0-8.0); MONOCYTE # 0.7 TH/MM3 (0-0.9); NEUT % 83.4 % (16.0-70.0); PLATELET COUNT 224 TH/MM3 (150-450); RED BLOOD COUNT 2.85 MIL/MM3 (4.50-5.90); RED CELL DISTRIBUTION WIDTH 17.1 % (11.6-17.2); WHITE BLOOD COUNT 8.8 TH/MM3 (4.0-11.0)
[2017-11-26 10:01] LABS: BICARBONATE 32.7 MEQ/L (21.0-32.0); CALCIUM 7.8 MG/DL (8.5-10.1); CREATININE 0.53 MG/DL (0.60-1.30)
[2017-11-26] MEDS: HYDROmorphone HCL PF 2 MG/ML VIAL IV PUSH PRN (11:28)
--- NOTE | 2017-11-26 11:55 | PD.ORT.PN ---
Subjective Subjective Remarks Patient resting, with this morning. Denies chest pain or shortness of breath. Reports thigh and knee pain. Objective Vitals Vital Signs Date Time Temp Pulse Resp B/P (MAP) Pulse Ox O2 Delivery O2 Flow Rate FiO2 11/26/17 08:00 97.2 81 20 119/82 (94) 99 11/26/17 07:37 98.2 90 20 115/82 96 11/26/17 04:30 97.6 84 20 135/78 97 11/26/17 04:13 97.4 89 20 120/83 95 11/26/17 03:11 Nasal Cannula 2.00 11/26/17 00:00 99.6 92 20 126/70 (88) 96 11/25/17 21:02 95 Nasal Cannula 2.00 11/25/17 20:00 98.9 92 20 129/66 (87) 94 11/25/17 16:00 98.9 92 19 124/71 (88) 90 11/25/17 12:00 98.4 91 18 127/75 (92) 93 I/O 11/25/17 11/25/17 11/25/17 11/26/17 11/26/17 11/26/17 07:00 15:00 23:00 07:00 15:00 23:00 Intake Total 2414 ml 2207 ml 700 ml 812 ml Output Total 2250 ml 2250 ml 4950 ml Balance 164 ml -43 ml -4250 ml 812 ml Intake Oral 2414 ml 800 ml 480 ml IV Total 1407 ml 210 ml Packed Cells 800 ml Blood Product IV Normal Saline Flush 10 ml 12 ml Output Urine Total 2250 ml 2250 ml 4950 ml # Bowel Movements 0 1 1 Result Diagram: 11/26/1792511/26/17925 Objective Remarks Awake, alert, no acute distress RLE: +vac. good seal. good cap refill distally, moves toes R leg. No tenderness R calf Assessment & Plan Assessment and Plan 1) Right Leg Infection s/p I&D with vac placement with partial wound closure - POD 2 -vac settings: 125mmHg, low, 10min soak at 20mL, 2hr suction time -maintain vac at all times -plan for repeat I&D jeimy/Nannette Tavares MD Nov 26, 2017 11:55
[2017-11-26] MEDS ORDERED: POTASSIUM CHLORIDE 20 MEQ CONTROLLED RELEASE TAB PO ONE (12:30)
--- NOTE | 2017-11-26 12:48 | HHI.PR ---
Subjective Remarks Follow up leg wound. No events reported by nursing. Patient states pain is well controlled at this time. Objective Vitals Vital Signs Date Time Temp Pulse Resp B/P (MAP) Pulse Ox O2 Delivery O2 Flow Rate FiO2 11/26/17 08:00 97.2 81 20 119/82 (94) 99 11/26/17 07:37 98.2 90 20 115/82 96 11/26/17 04:30 97.6 84 20 135/78 97 11/26/17 04:13 97.4 89 20 120/83 95 11/26/17 03:11 Nasal Cannula 2.00 11/26/17 00:00 99.6 92 20 126/70 (88) 96 11/25/17 21:02 95 Nasal Cannula 2.00 11/25/17 20:00 98.9 92 20 129/66 (87) 94 11/25/17 16:00 98.9 92 19 124/71 (88) 90 I/O 11/25/17 11/25/17 11/25/17 11/26/17 11/26/17 11/26/17 07:00 15:00 23:00 07:00 15:00 23:00 Intake Total 2414 ml 2207 ml 700 ml 812 ml Output Total 2250 ml 2250 ml 4950 ml Balance 164 ml -43 ml -4250 ml 812 ml Intake Oral 2414 ml 800 ml 480 ml IV Total 1407 ml 210 ml Packed Cells 800 ml Blood Product IV Normal Saline Flush 10 ml 12 ml Output Urine Total 2250 ml 2250 ml 4950 ml # Bowel Movements 0 1 1 Result Diagram: 11/26/1792511/26/17925 Imaging Last Impressions Chest X-Ray 11/25/17 0000 Signed Impressions: Service Date/Time: Saturday, November 25, 2017 11:58 - CONCLUSION: 1. Bibasilar patchy opacities could be atelectasis or infiltrate. Amaury Lee MD Lower Extremity CT 11/15/17 0000 Signed Impressions: Service Date/Time: Wednesday, November 15, 2017 13:22 - CONCLUSION: Extensive fluid surrounding the quadriceps musculature of the right thigh as well as air within the collection anteriorly and laterally which raises the possibility of abscess/infection. Fluid is also noted extending into the region of the gluteus muscles on the right. Diffuse subcutaneous edema the right thigh is noted. Compartment syndrome should be ruled out. Jez Chowdhury MD Abdomen/Pelvis CT 11/15/17 0000 Signed Impressions: Service Date/Time: Wednesday, November 15, 2017 13:22 - CONCLUSION: The abnormal soft tissue mass now has compartmentalized fluid collections and absence of air in the right soft tissues of thigh and gluteal region. This probably represents improving inflammatory or infectious process such as abscess. Small bilateral pleural effusions persist with a new consolidation with air bronchogram in the left lower lobe. Ascitic fluid suggested in the pelvis Silvio Laguerre MD Lower Extremity Ultrasound 11/08/172011 Signed Impressions: Service Date/Time: Wednesday, November 08, 2017 20:41 - CONCLUSION: 1. Negative for deep venous thrombosis. There are mildly enlarged right inguinal lymph nodes. Bertrand Smalls MD Thoracic Spine MRI 11/08/17 0000 Signed Impressions: Service Date/Time: Wednesday, November 08, 2017 22:01 - CONCLUSION: 1. Small bilateral pleural effusions. 2. No signal abnormalities in the thoracic vertebral bodies and no evidence of focal disc disease. Jace Bird MD Lumbar Spine MRI 11/08/17 0000 Signed Impressions: Service Date/Time: Wednesday, November 08, 2017 22:01 - CONCLUSION: 1. No evidence of lumbar disc disease. 2. Soft tissue abnormality about the right gluteal region suggesting abscess with T2 prolongation and contrast enhancement ; this is incompletely included in the [id number] of the exam. 3. There is also abnormal signal within the marrow of the sacral and coccygeal marrow including contrast enhancement suggesting that the right thigh and gluteal abnormality may extend intraosseous, possibly osteomyelitis. Jace Bird MD Objective Remarks General: No acute distress. Heart: Regular rate and rhythm. No murmur. Lungs: Diminished in both bases. Scattered rhonchi. Breathing is nonlabored. Abdomen: Soft, nontender, nondistended. Extremities: No lower extremity edema. Wound VAC on the right thigh. Psych: Alert, answers questions appropriately. Procedures 11/09/17 incision and drainage, irrigation and debridement of right hip abscess with placement of VAC dressing 11/11/17 removal of VAC device, irrigation and debridement of right gluteal hip abscess with placement of drain and replacement of VAC 11/16/17 irrigation and debridement of pelvic infection and abscess, irrigation and debridement of right thigh abscess, right knee arthrotomy with irrigation and debridement 11/16/17 incision and drainage, irrigation and debridement of complex lower extremity abscess with removal of subcutaneous tissue, fascia, and muscle, with application of VAC device 11/18/17 irrigation and debridement of right pelvis and hip, irrigation and debridement of right thigh, irrigation and debridement of right knee 11/21/17 irrigation and debridement of right hip, right thigh, and right knee. Application of wound VAC dressing 11/24/17 irrigation and debridement of right hip, right thigh, right knee. Secondary wound closure, application of wound VAC Urinary Catheter: Yes Assessment to: Continue Chaidez insert reason: Surgical/Invasive Proced Vascular Central Line Catheter: No A/P Assessment and Plan 1. Severe sepsis: Secondary to thigh abscess. Status post multiple surgeries. Wound VAC in place. Appreciate general surgery, orthopedic surgery recommendations. Continue antibiotics per infectious disease. 2. Acute respiratory failure: Resolved. Now on 2 L nasal cannula. CXR shows bibasilar patchy opacities. 3. Acute anemia secondary to blood loss from procedures: H/H slightly improved following transfusion of 2 units PRBCs. Monitor H/H. 4. Hypernatremia: Resolved. 5. Schizoaffective disorder: Continue Depakote, risperidone, Abilify. 6. GI prophylaxis: Famotidine. 7. DVT prophylaxis: TORSTEN Abel. Avoid chemical prophylaxis secondary to multiple surgical procedures. Enrique Sanchez MD Nov 26, 2017 12:48
[2017-11-26] MEDS: LACTATED RINGER'S 1000 ML INJ 1,000 ML IV SCH ×2 (12:57→22:42)
[2017-11-26] MEDS ORDERED: oxyCODONE/ACETAMINOPHEN 5 MG/325 MG TAB PO PRN (13:00)
[2017-11-26] MEDS: cefTRIAXone INJ 2,000 MG in SODIUM CHLORIDE 0.9% INJ 100 ML IV SCH (14:08)
[2017-11-26 17:02] LABS: HEMATOCRIT 24.7 % (39.0-51.0); HEMOGLOBIN 8.6 GM/DL (13.0-17.0)
[2017-11-26] MEDS: oxyCODONE/ACETAMINOPHEN 10 MG/325 MG TAB PO PRN (21:48)
[2017-11-27] VITALS: BP 128/73; PULSE 86; RESP 18; TEMP 97.8; O2SAT 93
[2017-11-27] MEDS: TEMAZEPAM 15 MG CAP PO PRN (00:52)
[2017-11-27] MEDS: NYSTATIN 100,000 UNIT/GM CREAM 15 GM TOPICAL SCH ×4 (00:52→18:40)
[2017-11-27] MEDS: oxyCODONE/ACETAMINOPHEN 10 MG/325 MG TAB PO PRN ×2 (03:43→18:47)
[2017-11-27] MEDS: CHLORHEXIDINE GLUCONATE 2 % 1 PACK (2 CLOTHS) TOP SCH (04:00)
[2017-11-27] MEDS: LACTATED RINGER'S 1000 ML INJ 1,000 ML IV SCH ×2 (04:30→18:48)
[2017-11-27 06:14] LABS: AUTOMATED NEUTROPHIL # 4.4 TH/MM3 (1.8-7.7); BASOPHIL # 0.1 TH/MM3 (0-0.2); BASOPHIL % 2.1 % (0.0-2.0); EOSINOPHIL % 0.1 % (0.0-4.0); HEMATOCRIT 23.6 % (39.0-51.0); HEMOGLOBIN 8.1 GM/DL (13.0-17.0); LYMPH % 14.7 % (9.0-44.0); LYMPHOCYTE # 0.9 TH/MM3 (1.0-4.8); MEAN CELL VOLUME 81.3 FL (80.0-100.0); MEAN CORPUSCULAR HEMOGLOBIN 27.8 PG (27.0-34.0); MEAN CORPUSCULAR HGB CONC 34.2 % (32.0-36.0); MEAN PLATELET VOLUME 8.6 FL (7.0-11.0); MONO % 13.3 % (0.0-8.0); MONOCYTE # 0.8 TH/MM3 (0-0.9); NEUT % 69.8 % (16.0-70.0); PLATELET COUNT 243 TH/MM3 (150-450); RED CELL DISTRIBUTION WIDTH 17.2 % (11.6-17.2); WHITE BLOOD COUNT 6.2 TH/MM3 (4.0-11.0)
[2017-11-27] MEDS: metroNIDAZOLE 500 MG TAB PO SCH ×2 (06:18→13:17)
[2017-11-27] MEDS: SODIUM CHLORIDE 0.9% FLUSH 10 ML FLUSH IV FLUSH PRN (06:18)
[2017-11-27] MEDS: VALPROATE INJ 500 MG in SODIUM CHLORIDE 0.9% INJ 100 ML IV SCH ×2 (06:18→13:18)
[2017-11-27 06:43] LABS: BICARBONATE 32.5 MEQ/L (21.0-32.0); CALCIUM 8.1 MG/DL (8.5-10.1); CREATININE 0.62 MG/DL (0.60-1.30); MAGNESIUM 1.8 MG/DL (1.5-2.5)
[2017-11-27 08:00] VITALS: BP 115/61; PULSE 85; RESP 17; TEMP 95.9; O2SAT 96
[2017-11-27] MEDS: CHLORHEXIDINE 0.12% (ORAL KIT) 15 ML CUP MT SCH ×2 (08:19→20:00)
[2017-11-27] MEDS ORDERED: POTASSIUM CHLORIDE 10 MEQ CONTROLLED RELEASE TAB PO ONE (08:30)
[2017-11-27] MEDS: FLUCONAZOLE 200 MG TAB PO SCH (09:29)
[2017-11-27] MEDS: ARIPiprazole 5 MG TAB PO SCH (09:30)
[2017-11-27] MEDS: risperiDONE ODT 3 MG TAB PO SCH (09:30)
[2017-11-27] MEDS: FAMOTIDINE 20 MG/2 ML VIAL IV PUSH SCH (09:30)
[2017-11-27] MEDS: hydrOXYzine HCL 50 MG TAB PO SCH (09:30)
[2017-11-27] MEDS: SODIUM CHLORIDE 0.9% FLUSH 10 ML FLUSH IV FLUSH SCH (09:31)
[2017-11-27 12:00] VITALS: BP 110/75; PULSE 91; RESP 19; TEMP 97.7; O2SAT 94
[2017-11-27] MEDS: cefTRIAXone INJ 2,000 MG in SODIUM CHLORIDE 0.9% INJ 100 ML IV SCH (13:19)
[2017-11-27 16:00] VITALS: BP 125/78; PULSE 89; RESP 19; TEMP 98.5; O2SAT 96
--- NOTE | 2017-11-27 16:09 | HHI.PR ---
Subjective Remarks Follow up hypokalemia, sepsis. Patient states "I feel better today". No pain currently. Objective Vitals Vital Signs Date Time Temp Pulse Resp B/P (MAP) Pulse Ox O2 Delivery O2 Flow Rate FiO2 11/27/17 12:00 97.7 91 19 110/75 (87) 94 11/27/17 09:31 Nasal Cannula 2.00 11/27/17 08:00 95.9 85 17 115/61 (79) 96 11/27/17 00:00 97.8 86 18 128/73 (91) 93 11/26/17 20:00 97.8 88 18 127/78 (94) 96 11/26/17 19:55 96 21 I/O 11/26/17 11/26/17 11/26/17 11/27/17 11/27/17 11/27/17 06:59 14:59 22:59 06:59 14:59 22:59 Intake Total 700 ml 812 ml 1905 ml 1480 ml 205 ml Output Total 4950 ml 3350 ml 7250 ml Balance -4250 ml 812 ml -1445 ml -5770 ml 205 ml Intake Oral 480 ml 1800 ml 480 ml IV Total 210 ml 105 ml 1000 ml 205 ml Packed Cells 800 ml Blood Product IV Normal Saline Flush 10 ml 12 ml Output Urine Total 4950 ml 3000 ml 6900 ml Drainage Total 350 ml 350 ml # Bowel Movements 1 1 0 Result Diagram: 11/27/17 0452 11/27/17 0452 Imaging Last Impressions Chest X-Ray 11/25/17 0000 Signed Impressions: Service Date/Time: Saturday, November 25, 2017 11:58 - CONCLUSION: 1. Bibasilar patchy opacities could be atelectasis or infiltrate. Amaury Lee MD Lower Extremity CT 11/15/17 0000 Signed Impressions: Service Date/Time: Wednesday, November 15, 2017 13:22 - CONCLUSION: Extensive fluid surrounding the quadriceps musculature of the right thigh as well as air within the collection anteriorly and laterally which raises the possibility of abscess/infection. Fluid is also noted extending into the region of the gluteus muscles on the right. Diffuse subcutaneous edema the right thigh is noted. Compartment syndrome should be ruled out. Jez Chowdhury MD Abdomen/Pelvis CT 11/15/17 0000 Signed Impressions: Service Date/Time: Wednesday, November 15, 2017 13:22 - CONCLUSION: The abnormal soft tissue mass now has compartmentalized fluid collections and absence of air in the right soft tissues of thigh and gluteal region. This probably represents improving inflammatory or infectious process such as abscess. Small bilateral pleural effusions persist with a new consolidation with air bronchogram in the left lower lobe. Ascitic fluid suggested in the pelvis Silvio Laguerre MD Lower Extremity Ultrasound 11/08/172011 Signed Impressions: Service Date/Time: Wednesday, November 08, 2017 20:41 - CONCLUSION: 1. Negative for deep venous thrombosis. There are mildly enlarged right inguinal lymph nodes. Bertrand Smalls MD Thoracic Spine MRI 11/08/17 0000 Signed Impressions: Service Date/Time: Wednesday, November 08, 2017 22:01 - CONCLUSION: 1. Small bilateral pleural effusions. 2. No signal abnormalities in the thoracic vertebral bodies and no evidence of focal disc disease. Jace Bird MD Lumbar Spine MRI 11/08/17 0000 Signed Impressions: Service Date/Time: Wednesday, November 08, 2017 22:01 - CONCLUSION: 1. No evidence of lumbar disc disease. 2. Soft tissue abnormality about the right gluteal region suggesting abscess with T2 prolongation and contrast enhancement ; this is incompletely included in the [id number] of the exam. 3. There is also abnormal signal within the marrow of the sacral and coccygeal marrow including contrast enhancement suggesting that the right thigh and gluteal abnormality may extend intraosseous, possibly osteomyelitis. Jace Bird MD Objective Remarks General: No acute distress. Heart: Regular rate and rhythm. No murmur. Lungs: Diminished in both bases. Scattered rhonchi. Breathing is nonlabored. Abdomen: Soft, nontender, nondistended. Extremities: No lower extremity edema. Wound VAC on the right thigh. Psych: Alert, answers questions appropriately. Procedures 11/09/17 incision and drainage, irrigation and debridement of right hip abscess with placement of VAC dressing 11/11/17 removal of VAC device, irrigation and debridement of right gluteal hip abscess with placement of drain and replacement of VAC 11/16/17 irrigation and debridement of pelvic infection and abscess, irrigation and debridement of right thigh abscess, right knee arthrotomy with irrigation and debridement 11/16/17 incision and drainage, irrigation and debridement of complex lower extremity abscess with removal of subcutaneous tissue, fascia, and muscle, with application of VAC device 11/18/17 irrigation and debridement of right pelvis and hip, irrigation and debridement of right thigh, irrigation and debridement of right knee 11/21/17 irrigation and debridement of right hip, right thigh, and right knee. Application of wound VAC dressing 11/24/17 irrigation and debridement of right hip, right thigh, right knee. Secondary wound closure, application of wound VAC Urinary Catheter: Yes Assessment to: Continue Chaidez insert reason: Surgical/Invasive Proced Vascular Central Line Catheter: No A/P Assessment and Plan 1. Severe sepsis: Secondary to thigh abscess. Status post multiple surgeries. Wound VAC in place. Appreciate general surgery, orthopedic surgery recommendations. Continue antibiotics per infectious disease. Repeat I&D Tuesday or Tuesday per orthopedic surgery. Afebrile overnight. Leukocytosis resolved. 2. Acute respiratory failure: Resolved. Now on 2 L nasal cannula. CXR shows bibasilar patchy opacities. 3. Acute anemia secondary to blood loss from procedures: Patient has received a total of 8 units PRBCs during this hospitalization. Monitor H/H. 4. Hypernatremia: Resolved. 5. Schizoaffective disorder: Continue Depakote, risperidone, Abilify. 6. GI prophylaxis: Famotidine. 7. DVT prophylaxis: TORSTEN Abel. Avoid chemical prophylaxis secondary to multiple surgical procedures. 8. Hypokalemia: Supplement potassium. Recheck labs in the morning. Enrique Sanchez MD Nov 27, 2017 16:09
--- NOTE | 2017-11-27 17:44 | PD.ORT.PN ---
Subjective Subjective Remarks Patient resting comfortably today. Denies chest pain or shortness of breath. Reports thigh and knee pain. Objective Vitals Vital Signs Date Time Temp Pulse Resp B/P (MAP) Pulse Ox O2 Delivery O2 Flow Rate FiO2 11/27/17 16:00 98.5 89 19 125/78 (94) 96 11/27/17 12:00 97.7 91 19 110/75 (87) 94 11/27/17 09:31 Nasal Cannula 2.00 11/27/17 08:00 95.9 85 17 115/61 (79) 96 11/27/17 00:00 97.8 86 18 128/73 (91) 93 11/26/17 20:00 97.8 88 18 127/78 (94) 96 11/26/17 19:55 96 21 I/O 11/26/17 11/26/17 11/26/17 11/27/17 11/27/17 11/27/17 07:00 15:00 23:00 07:00 15:00 23:00 Intake Total 700 ml 812 ml 1905 ml 1480 ml 205 ml Output Total 4950 ml 3350 ml 7250 ml Balance -4250 ml 812 ml -1445 ml -5770 ml 205 ml Intake Oral 480 ml 1800 ml 480 ml IV Total 210 ml 105 ml 1000 ml 205 ml Packed Cells 800 ml Blood Product IV Normal Saline Flush 10 ml 12 ml Output Urine Total 4950 ml 3000 ml 6900 ml Drainage Total 350 ml 350 ml # Bowel Movements 1 1 0 Result Diagram: 11/27/17 0452 11/27/17 0452 Objective Remarks Awake, alert, no acute distress RLE: +vac with good seal. good cap refill distally, moves toes R leg. No tenderness R calf Assessment & Plan Assessment and Plan 1) Right Leg Infection s/p I&D with vac placement with partial wound closure - POD 3 -vac settings: 125mmHg, low, 10min soak at 20mL, 2hr suction time -maintain vac at all times -plan for repeat I&D jeimy/Nannette Tavares MD Nov 27, 2017 17:44
[2017-11-27 20:34] VITALS: BP_SYST 106; BP_SYST 132; BP_DIAS 71; BP_DIAS 75; PULSE 85; RESP 20; TEMP 97.7; O2SAT 95; O2SAT 97
[2017-11-28] MEDS: FAMOTIDINE 20 MG/2 ML VIAL IV PUSH SCH ×3 (00:05→20:49)
[2017-11-28] MEDS: hydrOXYzine HCL 50 MG TAB PO SCH ×3 (00:06→20:48)
[2017-11-28] MEDS: VALPROATE INJ 500 MG in SODIUM CHLORIDE 0.9% INJ 100 ML IV SCH ×2 (00:06→05:43)
[2017-11-28] MEDS: metroNIDAZOLE 500 MG TAB PO SCH ×4 (00:06→20:48)
[2017-11-28] MEDS: oxyCODONE/ACETAMINOPHEN 10 MG/325 MG TAB PO PRN ×4 (00:07→22:36)
[2017-11-28] MEDS: SODIUM CHLORIDE 0.9% FLUSH 10 ML FLUSH IV FLUSH SCH ×3 (00:07→20:49)
[2017-11-28] MEDS: risperiDONE ODT 3 MG TAB PO SCH ×3 (00:08→20:49)
[2017-11-28] MEDS: NYSTATIN 100,000 UNIT/GM CREAM 15 GM TOPICAL SCH ×5 (00:21→22:37)
[2017-11-28 00:49] VITALS: BP 127/78; PULSE 87; RESP 20; TEMP 97.5; O2SAT 91
[2017-11-28] MEDS ORDERED: LACTATED RINGER'S 1000 ML IV PRN (02:15)
[2017-11-28] MEDS: CHLORHEXIDINE GLUCONATE 2 % 1 PACK (2 CLOTHS) TOP SCH (04:00)
[2017-11-28] MEDS: LACTATED RINGER'S 1000 ML INJ 1,000 ML IV SCH ×3 (04:42→22:37)
--- NOTE | 2017-11-28 07:05 | PD.ORT.PN ---
Subjective Subjective Remarks POD 4 s/p I&D right thigh with vac placement and partial wound closure stable. awake and alert. reports he feels good. Objective Vitals Vital Signs Date Time Temp Pulse Resp B/P (MAP) Pulse Ox O2 Delivery O2 Flow Rate FiO2 11/28/17 00:49 97.5 87 20 127/78 (94) 91 11/27/17 20:34 97.7 85 20 132/75 (94) 95 11/27/17 16:00 98.5 89 19 125/78 (94) 96 11/27/17 12:00 97.7 91 19 110/75 (87) 94 11/27/17 09:31 Nasal Cannula 2.00 11/27/17 08:00 95.9 85 17 115/61 (79) 96 I/O 11/27/17 11/27/17 11/27/17 11/28/17 11/28/17 11/28/17 07:00 15:00 23:00 07:00 15:00 23:00 Intake Total 1480 ml 1405 ml 1345 ml Output Total 7250 ml 3525 ml 750 ml Balance -5770 ml -2120 ml 595 ml Intake Oral 480 ml 1200 ml 240 ml IV Total 1000 ml 205 ml 1105 ml Output Urine Total 6900 ml 3200 ml 750 ml Drainage Total 350 ml 325 ml # Bowel Movements 0 1 Result Diagram: 11/27/1745111/27/17451 Objective Remarks Awake, alert, no acute distress RLE: +vac with good seal. good cap refill distally, moves toes R leg. No tenderness R calf Assessment & Plan Assessment and Plan 1) Right Leg Infection s/p I&D with vac placement with partial wound closure - POD 4 -vac settings: 125mmHg, low, 10min soak at 20mL, 2hr suction time -maintain vac at all times -npo after MN -sign consents -plan for surgery tomorrow for repeat I&D with vac change and possible skin grafting -consents on chart Gigi Rodríguez/First Laverne BOSS Nov 28, 2017 07:05
[2017-11-28 07:57] LABS: AUTOMATED NEUTROPHIL # 5.7 TH/MM3 (1.8-7.7); BASOPHIL # 0.2 TH/MM3 (0-0.2); BASOPHIL % 2.2 % (0.0-2.0); EOSINOPHIL % 0.2 % (0.0-4.0); HEMATOCRIT 23.4 % (39.0-51.0); LYMPH % 10.2 % (9.0-44.0); LYMPHOCYTE # 0.8 TH/MM3 (1.0-4.8); MEAN CELL VOLUME 81.6 FL (80.0-100.0); MEAN CORPUSCULAR HGB CONC 34.3 % (32.0-36.0); MEAN PLATELET VOLUME 8.3 FL (7.0-11.0); MONO % 14.1 % (0.0-8.0); MONOCYTE # 1.1 TH/MM3 (0-0.9); NEUT % 73.3 % (16.0-70.0); PLATELET COUNT 283 TH/MM3 (150-450); RED BLOOD COUNT 2.86 MIL/MM3 (4.50-5.90); RED CELL DISTRIBUTION WIDTH 17.5 % (11.6-17.2); WHITE BLOOD COUNT 7.8 TH/MM3 (4.0-11.0)
[2017-11-28 08:00] VITALS: BP 126/81; PULSE 81; RESP 16; TEMP 96.4; O2SAT 92
[2017-11-28] MEDS: CHLORHEXIDINE 0.12% (ORAL KIT) 15 ML CUP MT SCH ×2 (08:00→20:00)
[2017-11-28 08:18] LABS: BICARBONATE 31.9 MEQ/L (21.0-32.0); CALCIUM 8.2 MG/DL (8.5-10.1); CREATININE 0.66 MG/DL (0.60-1.30)
[2017-11-28] MEDS: FLUCONAZOLE 200 MG TAB PO SCH (08:56)
[2017-11-28] MEDS: ARIPiprazole 5 MG TAB PO SCH (08:57)
[2017-11-28 10:16] VITALS: O2SAT 95
--- NOTE | 2017-11-28 11:25 | HHI.PR ---
Subjective Remarks Follow up wound, anemia. Patient has no new complaints at this time. Family is at bedside. All questions answered. Objective Vitals Vital Signs Date Time Temp Pulse Resp B/P (MAP) Pulse Ox O2 Delivery O2 Flow Rate FiO2 11/28/17 10:16 95 Nasal Cannula 2.00 11/28/17 08:00 Nasal Cannula 2.00 11/28/17 08:00 96.4 81 16 126/81 (96) 92 11/28/17 00:49 97.5 87 20 127/78 (94) 91 11/27/17 20:34 97.7 85 20 132/75 (94) 95 11/27/17 20:00 97 Nasal Cannula 2.00 11/27/17 16:00 98.5 89 19 125/78 (94) 96 11/27/17 12:00 97.7 91 19 110/75 (87) 94 I/O 11/27/17 11/27/17 11/27/17 11/28/17 11/28/17 11/28/17 07:00 15:00 23:00 07:00 15:00 23:00 Intake Total 1480 ml 1405 ml 1345 ml Output Total 7250 ml 3525 ml 750 ml Balance -5770 ml -2120 ml 595 ml Intake Oral 480 ml 1200 ml 240 ml IV Total 1000 ml 205 ml 1105 ml Output Urine Total 6900 ml 3200 ml 750 ml Drainage Total 350 ml 325 ml # Bowel Movements 0 1 Result Diagram: 11/28/17 0655 11/28/17 0655 Imaging Last Impressions Chest X-Ray 11/25/17 0000 Signed Impressions: Service Date/Time: Saturday, November 25, 2017 11:58 - CONCLUSION: 1. Bibasilar patchy opacities could be atelectasis or infiltrate. Amaury Lee MD Lower Extremity CT 11/15/17 0000 Signed Impressions: Service Date/Time: Wednesday, November 15, 2017 13:22 - CONCLUSION: Extensive fluid surrounding the quadriceps musculature of the right thigh as well as air within the collection anteriorly and laterally which raises the possibility of abscess/infection. Fluid is also noted extending into the region of the gluteus muscles on the right. Diffuse subcutaneous edema the right thigh is noted. Compartment syndrome should be ruled out. Jez Chowdhury MD Abdomen/Pelvis CT 11/15/17 0000 Signed Impressions: Service Date/Time: Wednesday, November 15, 2017 13:22 - CONCLUSION: The abnormal soft tissue mass now has compartmentalized fluid collections and absence of air in the right soft tissues of thigh and gluteal region. This probably represents improving inflammatory or infectious process such as abscess. Small bilateral pleural effusions persist with a new consolidation with air bronchogram in the left lower lobe. Ascitic fluid suggested in the pelvis Silvio Laguerre MD Lower Extremity Ultrasound 11/08/172011 Signed Impressions: Service Date/Time: Wednesday, November 08, 2017 20:41 - CONCLUSION: 1. Negative for deep venous thrombosis. There are mildly enlarged right inguinal lymph nodes. Bertrand Smalls MD Thoracic Spine MRI 11/08/17 0000 Signed Impressions: Service Date/Time: Wednesday, November 08, 2017 22:01 - CONCLUSION: 1. Small bilateral pleural effusions. 2. No signal abnormalities in the thoracic vertebral bodies and no evidence of focal disc disease. Jace Bird MD Lumbar Spine MRI 11/08/17 0000 Signed Impressions: Service Date/Time: Wednesday, November 08, 2017 22:01 - CONCLUSION: 1. No evidence of lumbar disc disease. 2. Soft tissue abnormality about the right gluteal region suggesting abscess with T2 prolongation and contrast enhancement ; this is incompletely included in the [id number] of the exam. 3. There is also abnormal signal within the marrow of the sacral and coccygeal marrow including contrast enhancement suggesting that the right thigh and gluteal abnormality may extend intraosseous, possibly osteomyelitis. Jace Bird MD Objective Remarks General: No acute distress. Heart: Regular rate and rhythm. No murmur. Lungs: Diminished in both bases. Scattered rhonchi. Breathing is nonlabored. Abdomen: Soft, nontender, nondistended. Extremities: No lower extremity edema. Wound VAC on the right thigh. Psych: Alert, answers questions appropriately. Procedures 11/09/17 incision and drainage, irrigation and debridement of right hip abscess with placement of VAC dressing 11/11/17 removal of VAC device, irrigation and debridement of right gluteal hip abscess with placement of drain and replacement of VAC 11/16/17 irrigation and debridement of pelvic infection and abscess, irrigation and debridement of right thigh abscess, right knee arthrotomy with irrigation and debridement 11/16/17 incision and drainage, irrigation and debridement of complex lower extremity abscess with removal of subcutaneous tissue, fascia, and muscle, with application of VAC device 11/18/17 irrigation and debridement of right pelvis and hip, irrigation and debridement of right thigh, irrigation and debridement of right knee 11/21/17 irrigation and debridement of right hip, right thigh, and right knee. Application of wound VAC dressing 11/24/17 irrigation and debridement of right hip, right thigh, right knee. Secondary wound closure, application of wound VAC Urinary Catheter: Yes Assessment to: Continue Chaidez insert reason: Surgical/Invasive Proced Vascular Central Line Catheter: No A/P Assessment and Plan 1. Severe sepsis: Secondary to thigh abscess. Status post multiple surgeries. Wound VAC in place. Appreciate general surgery, orthopedic surgery recommendations. Continue antibiotics per infectious disease. Repeat I&D planned for tomorrow per orthopedic surgery. Afebrile overnight. Leukocytosis resolved. 2. Acute respiratory failure: Resolved. Now on 2 L nasal cannula. CXR shows bibasilar patchy opacities. 3. Acute anemia secondary to blood loss from procedures: Patient has received a total of 8 units PRBCs during this hospitalization. H/H low, but stable. 4. Hypernatremia: Resolved. 5. Schizoaffective disorder: Continue Depakote, risperidone, Abilify. 6. GI prophylaxis: Famotidine. 7. DVT prophylaxis: TORSTEN Abel. Avoid chemical prophylaxis secondary to multiple surgical procedures. 8. Hypokalemia: Improved. Enrique Sacnhez MD Nov 28, 2017 11:25
[2017-11-28 12:00] VITALS: BP 139/86; PULSE 69; RESP 17; TEMP 96.3; O2SAT 94
[2017-11-28] MEDS: VALPROIC ACID 250 MG CAP PO SCH ×2 (14:22→20:48)
[2017-11-28] MEDS: cefTRIAXone INJ 2,000 MG in SODIUM CHLORIDE 0.9% INJ 100 ML IV SCH (14:23)
[2017-11-28 16:00] VITALS: BP 125/102; PULSE 78; RESP 15; TEMP 95.9; O2SAT 98
--- NOTE | 2017-11-28 16:56 | HHI.IDPN ---
Subjective Subjective Remarks is a 41 y/o CM with PMHx of Schizoaffective disorder on Haldol IM injections in bilateral buttocks. Patient reports getting these as outpatient by unknown doctor (different doctor each time per patient). Approx 1 month back after he received his last Haldol IM shot in right buttock patient noticed pain and swelling and decreased range of motion. Patient continued to receive Haldol shots in left buttock due to pain in right buttock. Patient reports his ability to move around has declined since last 1 week and he needs help with ADL phuong dressing himself due to significant pain on right lower extremity. Patient reports fevers chills and night sweats for the last 1 week prior to admission and significant worsening pain and swelling of his right lower extremity. Patient's past medical history is also significant for right dorsum of the foot marsh as a child as well as neuropathy. Per review of records it appears the patient's mother has reported that he hasn't been feeling well since July and has presented to another emergency department related to back and hip pain. The patient was diagnosed with fecal impaction and severe constipation was seen by law reporter. Patient reports that he was on a bowel regimen to help with her constipation and that has been a challenge to maintain continence. Patient has had incontinence of stool and intermittently incontinence of urine since July. With this background patient presents to the emergency department for evaluation of difficulty walking, generalized weakness, weight loss loss of appetite. Reportedly while in the triage area his blood pressure was in the 70s systolic. Patient also reported abdominal pain in the lower quadrants radiating to his bilateral lower extremity but more so on the right. Patient reported nausea decrease in appetite and loss of about 20 pound weight in the last 1 month. Patient denies any recent intravenous drug abuse. Patient does endorse to receiving intramuscular Haldol in bilateral buttocks. The last right buttock Haldol injection was approximately 1 month back. Patient reports having weakness of bilateral lower extremities more so on the right especially because of sharp shooting pains down his right leg. In the emergency department patient received a total of 4 L of IV fluids as a part of severe sepsis workup and management. Cultures drawn at admission are currently pending. A CT scan of the abdomen showed appearance of soft tissue mass of the proximal thigh and gluteal region with fluid and gas tracking down the rectus muscle into the anterior thigh muscle. This is concerning for infectious or necrotic process. Infectious disease consulted for evaluation and management of severe sepsis, right buttock abscess possible osteomyelitis. Overnight events reviewed with RN No fevers No rash No diarrhea Has a wound VAC to the right lower extremity Antibiotics Current Medications Medications (Trade) Dose Ordered Sig/Mega Route Start Time Stop Time Status Last Admin (Atarax) 50 mg BID PO 11/09/17 09:00 11/28/17 08:56 (risperDAL) 3 mg DAILY PO 11/09/17 09:00 Future Hold 11/13/17 08:02 (NS Flush) 2 ml UNSCH PRN IV FLUSH 11/08/17 23:15 11/27/17 06:18 (NS Flush) 2 ml BID IV FLUSH 11/09/17 09:00 11/28/17 08:56 (Tylenol) 650 mg Q6H PRN PO 11/08/17 23:15 11/11/17 04:42 (Pepcid Inj) 20 mg Q12HR IV PUSH 11/09/17 09:00 11/28/17 08:57 (Zofran Inj) 4 mg Q6H PRN IV PUSH 11/08/17 23:15 (Restoril) 15 mg HS PRN PO 11/08/17 23:15 11/27/17 00:52 (Duoneb Neb) 1 ampule Q2HR NEB PRN INH 11/08/17 23:15 11/20/17 14:49 Miscellaneous Information 1 Q361D XX 11/08/17 23:15 11/08/17 01:00 (Chlorhexidine 2% Cloth) 3 pack Taper DAILY@04 TOP 11/09/17 04:00 11/05/18 03:59 11/25/17 04:00 (Chlorhexidine 2% Cloth) 3 pack UNSCH PRN TOP 11/08/17 23:15 (Peridex 0.12% Liq) 15 ml BID@08,20 MT 11/09/17 20:00 11/25/17 10:20 (risperDAL M-TAB) 3 mg Q12HR PO 11/13/17 21:00 11/28/17 08:57 (Mycostatin Cream) 1 applic Q6HR TOPICAL 11/15/17 18:00 11/28/17 11:39 (Abilify) 5 mg DAILY PO 11/17/17 14:45 11/28/17 08:57 Vancomycin HCl 4000 mg/ Tobramycin Sulfate 2400 mg/ Micafungin Sodium 1000 mg/Sodium Chloride 3,000 ml @ 0 mls/hr PRODUCTION LINE TECHNICIAN IRRIGATION 11/21/17 07:45 Ceftriaxone Sodium 2000 mg/ Sodium Chloride 100 ml @ 200 mls/hr Q24H IV 11/22/17 15:00 11/28/17 14:23 Lactated Ringer's 1,000 ml @ 100 mls/hr Q10H IV 11/24/17 10:42 11/28/17 14:22 (Flagyl) 500 mg Q8HR PO 11/25/17 14:00 11/28/17 14:21 (Diflucan) 400 mg DAILY PO 11/26/17 09:00 11/28/17 08:56 (Dilaudid Pf Inj) 0.5 mg Q3H PRN IV PUSH 11/26/17 13:00 (Percocet 5-325 Mg) 1 tab Q4H PRN PO 11/26/17 13:00 (Percocet 10-325 Mg) 1 tab Q4H PRN PO 11/26/17 13:00 11/28/17 10:26 Lactated Ringer's 1,000 ml @ 30 mls/hr Q24H PRN IV 11/28/17 02:15 12/01/17 02:14 11/28/17 05:47 (Depakene) 500 mg Q8HR PO 11/28/17 14:00 11/28/17 14:22 Lines Line sites with no evidence of infection. Past Medical History Neuropathy involving the right leg h/o marsh right foot dorsum as a child. Schizoaffective disorder, Depressions Anxiety Past Surgical History None per patient. Allergies: Coded Allergies: diphenhydramine (Verified Adverse Reaction, Unknown, 11/08/17) Objective . Vital Signs Date Time Temp Pulse Resp B/P (MAP) Pulse Ox O2 Delivery O2 Flow Rate FiO2 11/28/17 12:00 96.3 69 17 139/86 (103) 94 11/28/17 10:16 95 Nasal Cannula 2.00 11/28/17 08:00 Nasal Cannula 2.00 11/28/17 08:00 96.4 81 16 126/81 (96) 92 11/28/17 00:49 97.5 87 20 127/78 (94) 91 11/27/17 20:34 97.7 85 20 132/75 (94) 95 11/27/17 20:00 97 Nasal Cannula 2.00 11/28/17 11/28/17 11/29/17 15:00 23:00 07:00 Intake Total 100 ml Balance 100 ml IV Total 100 ml # Bowel Movements 1 . Laboratory Tests Test 11/27/17 04:52 11/28/17 06:55 White Blood Count 6.2 TH/MM3 7.8 TH/MM3 Red Blood Count 2.90 MIL/MM3 2.86 MIL/MM3 Hemoglobin 8.1 GM/DL 8.0 GM/DL Hematocrit 23.6 % 23.4 % Mean Corpuscular Volume 81.3 FL 81.6 FL Mean Corpuscular Hemoglobin 27.8 PG 28.0 PG Mean Corpuscular Hemoglobin Concent 34.2 % 34.3 % Red Cell Distribution Width 17.2 % 17.5 % Platelet Count 243 TH/MM3 283 TH/MM3 Mean Platelet Volume 8.6 FL 8.3 FL Neutrophils (%) (Auto) 69.8 % 73.3 % Lymphocytes (%) (Auto) 14.7 % 10.2 % Monocytes (%) (Auto) 13.3 % 14.1 % Eosinophils (%) (Auto) 0.1 % 0.2 % Basophils (%) (Auto) 2.1 % 2.2 % Neutrophils # (Auto) 4.4 TH/MM3 5.7 TH/MM3 Lymphocytes # (Auto) 0.9 TH/MM3 0.8 TH/MM3 Monocytes # (Auto) 0.8 TH/MM3 1.1 TH/MM3 Eosinophils # (Auto) 0.0 TH/MM3 0.0 TH/MM3 Basophils # (Auto) 0.1 TH/MM3 0.2 TH/MM3 CBC Comment DIFF FINAL DIFF FINAL Differential Comment Laboratory Tests Test 11/27/17 04:52 11/28/17 06:55 Blood Urea Nitrogen 7 MG/DL 8 MG/DL Creatinine 0.62 MG/DL 0.66 MG/DL Random Glucose 92 MG/DL 107 MG/DL Calcium Level 8.1 MG/DL 8.2 MG/DL Magnesium Level 1.8 MG/DL Sodium Level 137 MEQ/L 138 MEQ/L Potassium Level 3.4 MEQ/L 3.6 MEQ/L Chloride Level 99 MEQ/L 101 MEQ/L Carbon Dioxide Level 32.5 MEQ/L 31.9 MEQ/L Anion Gap 6 MEQ/L 5 MEQ/L Estimat Glomerular Filtration Rate 144 ML/MIN 134 ML/MIN Microbiology Date/Time Source Procedure Growth Status 11/28/17 16:30 Stool Stool Stool Occult Blood (ALIN) Pending Received Imaging Lower Extremity CT 11/15/17 0000 Signed Impressions: Service Date/Time: Wednesday, November 15, 2017 13:22 - CONCLUSION: Extensive fluid surrounding the quadriceps musculature of the right thigh as well as air within the collection anteriorly and laterally which raises the possibility of abscess/infection. Fluid is also noted extending into the region of the gluteus muscles on the right. Diffuse subcutaneous edema the right thigh is noted. Compartment syndrome should be ruled out. Jez Chowdhury MD Abdomen/Pelvis CT 11/15/17 0000 Signed Impressions: Service Date/Time: Wednesday, November 15, 2017 13:22 - CONCLUSION: The abnormal soft tissue mass now has compartmentalized fluid collections and absence of air in the right soft tissues of thigh and gluteal region. This probably represents improving inflammatory or infectious process such as abscess. Small bilateral pleural effusions persist with a new consolidation with air bronchogram in the left lower lobe. Ascitic fluid suggested in the pelvis Silvio Laguerre MD Chest X-Ray 11/14/17 0600 Signed Impressions: Service Date/Time: Tuesday, November 14, 2017 04:22 - CONCLUSION: 1. Left basilar airspace disease similar to November 12. Bertrand Smalls MD Lower Extremity Ultrasound 11/08/172011 Signed Impressions: Service Date/Time: Wednesday, November 08, 2017 20:41 - CONCLUSION: 1. Negative for deep venous thrombosis. There are mildly enlarged right inguinal lymph nodes. Bertrand Smalls MD Thoracic Spine MRI 11/08/17 0000 Signed Impressions: Service Date/Time: Wednesday, November 08, 2017 22:01 - CONCLUSION: 1. Small bilateral pleural effusions. 2. No signal abnormalities in the thoracic vertebral bodies and no evidence of focal disc disease. Jace Bird MD Lumbar Spine MRI 11/08/17 0000 Signed Impressions: Service Date/Time: Wednesday, November 08, 2017 22:01 - CONCLUSION: 1. No evidence of lumbar disc disease. 2. Soft tissue abnormality about the right gluteal region suggesting abscess with T2 prolongation and contrast enhancement ; this is incompletely included in the [id number] of the exam. 3. There is also abnormal signal within the marrow of the sacral and coccygeal marrow including contrast enhancement suggesting that the right thigh and gluteal abnormality may extend intraosseous, possibly osteomyelitis. Jace Bird MD Last Impressions Chest X-Ray 11/09/17 Signed Impressions: Service Date/Time: Thursday, November 09, 2017 16:23 - CONCLUSION: Minimal infiltrate left base new from comparison study. Rodrick Ch MD FACR Lower Extremity Ultrasound 11/08/172011 Signed Impressions: Service Date/Time: Wednesday, November 08, 2017 20:41 - CONCLUSION: 1. Negative for deep venous thrombosis. There are mildly enlarged right inguinal lymph nodes. Bertrand Smalls MD Abdomen/Pelvis CT 11/08/172011 Signed Impressions: Service Date/Time: Wednesday, November 08, 2017 22:54 - CONCLUSION: 1. Abnormal appearance of the soft tissues of the proximal thigh and gluteal region with fluid and gas tracking between the rectus muscles and the anterior thigh muscles. No focal abnormal areas of enhancement. The combination of fluid and gas suggests either an infectious or necrotic process. 2. Nonobstructing small calcified stone mid pole left kidney and multiple left renal cysts. 3. Small bilateral pleural effusions. Jace Bird MD Thoracic Spine MRI 11/08/17 0000 Signed Impressions: Service Date/Time: Wednesday, November 08, 2017 22:01 - CONCLUSION: 1. Small bilateral pleural effusions. 2. No signal abnormalities in the thoracic vertebral bodies and no evidence of focal disc disease. Jace Bird MD Lumbar Spine MRI 11/08/17 0000 Signed Impressions: Service Date/Time: Wednesday, November 08, 2017 22:01 - CONCLUSION: 1. No evidence of lumbar disc disease. 2. Soft tissue abnormality about the right gluteal region suggesting abscess with T2 prolongation and contrast enhancement ; this is incompletely included in the [id number] of the exam. 3. There is also abnormal signal within the marrow of the sacral and coccygeal marrow including contrast enhancement suggesting that the right thigh and gluteal abnormality may extend intraosseous, possibly osteomyelitis. Jace Bird MD Physical Exam GENERAL: Awake and interactive, not in respiratory distress. SKIN: Warm and dry, no generalized rash HEAD: Atraumatic. Normocephalic. No temporal or scalp tenderness. EYES: Pupils equal round and reactive. Extraocular motions intact. No scleral icterus. No injection or drainage. ENT: Dry oral mucosa, no nasal discharge NECK: Trachea midline. Supple, nontender, no meningeal signs. CARDIOVASCULAR: HS audible. RESPIRATORY: Diffuse rhonchi bilaterally GASTROINTESTINAL: Abdomen soft, non-tender, nondistended. MUSCULOSKELETAL: RLE with wound vac in place. surrounding erythema and induration decreased. Groin with edema noted. NEUROLOGICAL: Awake and alert and interactive. Grossly nonfocal Psych cooperative IV line sites with no e.o infection. Assessment & Plan Remarks Severe sepsis present on admission. Staph coag neg bacteremia: 1 out of 4 bottles likely contaminant. E.coli and Strep, mixed anaerobes (beta lactamase positive) and Paz albicans , right thigh abscess/osteomyelitis, extending to pelvis/hip and R knee - S/P multiple dbridements Possible sacral osteomyelitis Schizoaffective disorder receives IM Haldol injections in the buttocks. Lower extremity neuropathy. Weight loss, loss of appetite Diarrhea check stool C. difficile Recommendations: Continue Ceftriaxone IV Change Flagyl to oral Change Diflucan to oral Follow cultures Follow clinically. alfonso SMITH Discussed with Dr. Laura velarde Case management: needs placement for IV antibiotics for 8-10 weeks depending on repeat imaging next week. Weekly CDC with diff, CMP, CRP to be ordered by hospitalist. If any interim changes please call sooner. María Upton MD Nov 28, 2017 16:56
[2017-11-28 20:00] VITALS: BP 131/78; PULSE 87; RESP 18; TEMP 97.3; O2SAT 91
[2017-11-29] VITALS: BP 141/78; PULSE 90; RESP 18; TEMP 97.1; O2SAT 91
[2017-11-29] MEDS: CHLORHEXIDINE GLUCONATE 2 % 1 PACK (2 CLOTHS) TOP SCH (04:00)
[2017-11-29] MEDS: metroNIDAZOLE 500 MG TAB PO SCH ×3 (05:10→22:06)
[2017-11-29] MEDS: VALPROIC ACID 250 MG CAP PO SCH ×3 (05:10→22:07)
[2017-11-29] MEDS: NYSTATIN 100,000 UNIT/GM CREAM 15 GM TOPICAL SCH ×4 (05:11→23:16)
[2017-11-29 07:28] LABS: AUTOMATED NEUTROPHIL # 5.3 TH/MM3 (1.8-7.7); BASOPHIL # 0.2 TH/MM3 (0-0.2); BASOPHIL % 2.6 % (0.0-2.0); EOSINOPHIL % 0.2 % (0.0-4.0); HEMATOCRIT 23.6 % (39.0-51.0); HEMOGLOBIN 8.2 GM/DL (13.0-17.0); LYMPH % 11.7 % (9.0-44.0); LYMPHOCYTE # 0.9 TH/MM3 (1.0-4.8); MEAN CELL VOLUME 82.2 FL (80.0-100.0); MEAN CORPUSCULAR HEMOGLOBIN 28.7 PG (27.0-34.0); MEAN CORPUSCULAR HGB CONC 34.9 % (32.0-36.0); MEAN PLATELET VOLUME 7.9 FL (7.0-11.0); MONO % 17.9 % (0.0-8.0); MONOCYTE # 1.4 TH/MM3 (0-0.9); NEUT % 67.6 % (16.0-70.0); PLATELET COUNT 305 TH/MM3 (150-450); RED BLOOD COUNT 2.88 MIL/MM3 (4.50-5.90); RED CELL DISTRIBUTION WIDTH 17.4 % (11.6-17.2); WHITE BLOOD COUNT 7.9 TH/MM3 (4.0-11.0)
--- NOTE | 2017-11-29 07:28 | PD.ORT.PN ---
Subjective Subjective Remarks POD 5 s/p I&D right thigh with vac placement and partial wound closure stable. awake and alert. reports he feels good. Objective Vitals Vital Signs Date Time Temp Pulse Resp B/P (MAP) Pulse Ox O2 Delivery O2 Flow Rate FiO2 11/29/17 00:00 97.1 90 18 141/78 (99) 91 11/28/17 20:50 Nasal Cannula 2.00 11/28/17 20:00 97.3 87 18 131/78 (95) 91 11/28/17 16:00 95.9 78 15 125/102 (110) 98 11/28/17 12:00 96.3 69 17 139/86 (103) 94 11/28/17 10:16 95 Nasal Cannula 2.00 11/28/17 08:00 Nasal Cannula 2.00 11/28/17 08:00 96.4 81 16 126/81 (96) 92 I/O 11/28/17 11/28/17 11/28/17 11/29/17 11/29/17 11/29/17 07:00 15:00 23:00 07:00 15:00 23:00 Intake Total 1345 ml 100 ml 800 ml 0 ml Output Total 750 ml 3185 ml 2600 ml Balance 595 ml 100 ml -2385 ml -2600 ml Intake Oral 240 ml 800 ml 0 ml IV Total 1105 ml 100 ml Output Urine Total 750 ml 3050 ml 2500 ml Drainage Total 135 ml 100 ml # Bowel Movements 1 1 2 Result Diagram: 11/28/17 0655 11/28/17 0655 Objective Remarks Awake, alert, no acute distress RLE: +vac with good seal. good cap refill distally, moves toes R leg. No tenderness R calf Assessment & Plan Assessment and Plan 1) Right Leg Infection s/p I&D with vac placement with partial wound closure - POD 5 -vac settings: 125mmHg, low, 10min soak at 20mL, 2hr suction time -maintain vac at all times -surgery today for repeat I&D and possible STSG Gigi Rodríguez/First Laverne BOSS Nov 29, 2017 07:28
[2017-11-29 07:46] LABS: BICARBONATE 33.9 MEQ/L (21.0-32.0); CALCIUM 8.1 MG/DL (8.5-10.1); CREATININE 0.51 MG/DL (0.60-1.30)
[2017-11-29 08:00] VITALS: BP 128/76; PULSE 76; RESP 19; TEMP 97.8; O2SAT 93
[2017-11-29] MEDS: CHLORHEXIDINE 0.12% (ORAL KIT) 15 ML CUP MT SCH ×2 (08:00→20:00)
[2017-11-29] MEDS: hydrOXYzine HCL 50 MG TAB PO SCH ×2 (09:00→19:19)
[2017-11-29] MEDS: ARIPiprazole 5 MG TAB PO SCH (09:00)
[2017-11-29] MEDS: risperiDONE ODT 3 MG TAB PO SCH ×2 (09:00→19:20)
[2017-11-29 09:49] VITALS: O2SAT 93
--- NOTE | 2017-11-29 10:22 | HHI.PR ---
Subjective Remarks The patient said that his pain was not all the way controlled. He has been endorsing some diarrhea recently. He was anticipating further surgery. Discussed with nursing. Objective Vitals Vital Signs Date Time Temp Pulse Resp B/P (MAP) Pulse Ox O2 Delivery O2 Flow Rate FiO2 11/29/17 09:49 93 Nasal Cannula 2.00 11/29/17 08:00 97.8 76 19 128/76 (93) 93 11/29/17 00:00 97.1 90 18 141/78 (99) 91 11/28/17 20:50 Nasal Cannula 2.00 11/28/17 20:00 97.3 87 18 131/78 (95) 91 11/28/17 16:00 95.9 78 15 125/102 (110) 98 11/28/17 12:00 96.3 69 17 139/86 (103) 94 I/O 11/28/17 11/28/17 11/28/17 11/29/17 11/29/17 11/29/17 07:00 15:00 23:00 07:00 15:00 23:00 Intake Total 1345 ml 100 ml 800 ml 0 ml Output Total 750 ml 3185 ml 2600 ml Balance 595 ml 100 ml -2385 ml -2600 ml Intake Oral 240 ml 800 ml 0 ml IV Total 1105 ml 100 ml Output Urine Total 750 ml 3050 ml 2500 ml Drainage Total 135 ml 100 ml # Bowel Movements 1 1 2 Result Diagram: 11/29/17 0600 11/29/17 0600 Imaging Last Impressions Chest X-Ray 11/25/17 0000 Signed Impressions: Service Date/Time: Saturday, November 25, 2017 11:58 - CONCLUSION: 1. Bibasilar patchy opacities could be atelectasis or infiltrate. Amaury Lee MD Lower Extremity CT 11/15/17 0000 Signed Impressions: Service Date/Time: Wednesday, November 15, 2017 13:22 - CONCLUSION: Extensive fluid surrounding the quadriceps musculature of the right thigh as well as air within the collection anteriorly and laterally which raises the possibility of abscess/infection. Fluid is also noted extending into the region of the gluteus muscles on the right. Diffuse subcutaneous edema the right thigh is noted. Compartment syndrome should be ruled out. Jez Chowdhury MD Abdomen/Pelvis CT 11/15/17 0000 Signed Impressions: Service Date/Time: Wednesday, November 15, 2017 13:22 - CONCLUSION: The abnormal soft tissue mass now has compartmentalized fluid collections and absence of air in the right soft tissues of thigh and gluteal region. This probably represents improving inflammatory or infectious process such as abscess. Small bilateral pleural effusions persist with a new consolidation with air bronchogram in the left lower lobe. Ascitic fluid suggested in the pelvis Silvio Lagurere MD Lower Extremity Ultrasound 11/08/172011 Signed Impressions: Service Date/Time: Wednesday, November 08, 2017 20:41 - CONCLUSION: 1. Negative for deep venous thrombosis. There are mildly enlarged right inguinal lymph nodes. Bertrand Smalls MD Thoracic Spine MRI 11/08/17 0000 Signed Impressions: Service Date/Time: Wednesday, November 08, 2017 22:01 - CONCLUSION: 1. Small bilateral pleural effusions. 2. No signal abnormalities in the thoracic vertebral bodies and no evidence of focal disc disease. Jace Bird MD Lumbar Spine MRI 11/08/17 0000 Signed Impressions: Service Date/Time: Wednesday, November 08, 2017 22:01 - CONCLUSION: 1. No evidence of lumbar disc disease. 2. Soft tissue abnormality about the right gluteal region suggesting abscess with T2 prolongation and contrast enhancement ; this is incompletely included in the [id number] of the exam. 3. There is also abnormal signal within the marrow of the sacral and coccygeal marrow including contrast enhancement suggesting that the right thigh and gluteal abnormality may extend intraosseous, possibly osteomyelitis. Jace Bird MD Objective Remarks General: No acute distress. HEENT: NC, AT. Heart: Regular rate and rhythm. No murmur. Lungs: Diminished in both bases. Scattered rhonchi. Breathing is nonlabored. Abdomen: Soft, nontender, nondistended. Extremities: No lower extremity edema. Wound VAC on the right thigh. Neuro: Alert, answers questions appropriately. Procedures 11/09/17 incision and drainage, irrigation and debridement of right hip abscess with placement of VAC dressing 11/11/17 removal of VAC device, irrigation and debridement of right gluteal hip abscess with placement of drain and replacement of VAC 11/16/17 irrigation and debridement of pelvic infection and abscess, irrigation and debridement of right thigh abscess, right knee arthrotomy with irrigation and debridement 11/16/17 incision and drainage, irrigation and debridement of complex lower extremity abscess with removal of subcutaneous tissue, fascia, and muscle, with application of VAC device 11/18/17 irrigation and debridement of right pelvis and hip, irrigation and debridement of right thigh, irrigation and debridement of right knee 11/21/17 irrigation and debridement of right hip, right thigh, and right knee. Application of wound VAC dressing 11/24/17 irrigation and debridement of right hip, right thigh, right knee. Secondary wound closure, application of wound VAC Medications and IVs Current Medications Medications (Trade) Dose Ordered Sig/Mega Route Start Time Stop Time Status Last Admin (Atarax) 50 mg BID PO 11/09/17 09:00 11/28/17 20:48 (risperDAL) 3 mg DAILY PO 11/09/17 09:00 Future Hold 11/13/17 08:02 (NS Flush) 2 ml UNSCH PRN IV FLUSH 11/08/17 23:15 11/27/17 06:18 (NS Flush) 2 ml BID IV FLUSH 11/09/17 09:00 11/28/17 20:49 (Tylenol) 650 mg Q6H PRN PO 11/08/17 23:15 11/11/17 04:42 (Pepcid Inj) 20 mg Q12HR IV PUSH 11/09/17 09:00 11/28/17 20:49 (Zofran Inj) 4 mg Q6H PRN IV PUSH 11/08/17 23:15 (Restoril) 15 mg HS PRN PO 11/08/17 23:15 11/27/17 00:52 (Duoneb Neb) 1 ampule Q2HR NEB PRN INH 11/08/17 23:15 11/20/17 14:49 Miscellaneous Information 1 Q361D XX 11/08/17 23:15 11/08/17 01:00 (Chlorhexidine 2% Cloth) 3 pack Taper DAILY@04 TOP 11/09/17 04:00 11/05/18 03:59 11/25/17 04:00 (Chlorhexidine 2% Cloth) 3 pack UNSCH PRN TOP 11/08/17 23:15 (Peridex 0.12% Liq) 15 ml BID@08,20 MT 11/09/17 20:00 11/25/17 10:20 (risperDAL M-TAB) 3 mg Q12HR PO 11/13/17 21:00 11/28/17 20:49 (Mycostatin Cream) 1 applic Q6HR TOPICAL 11/15/17 18:00 11/29/17 05:11 (Abilify) 5 mg DAILY PO 11/17/17 14:45 11/28/17 08:57 Vancomycin HCl 4000 mg/ Tobramycin Sulfate 2400 mg/ Micafungin Sodium 1000 mg/Sodium Chloride 3,000 ml @ 0 mls/hr QUALITY MANAGEMENT NURSE IRRIGATION 11/21/17 07:45 Ceftriaxone Sodium 2000 mg/ Sodium Chloride 100 ml @ 200 mls/hr Q24H IV 11/22/17 15:00 11/28/17 14:23 Lactated Ringer's 1,000 ml @ 100 mls/hr Q10H IV 11/24/17 10:42 11/28/17 14:22 (Flagyl) 500 mg Q8HR PO 11/25/17 14:00 11/29/17 05:10 (Diflucan) 400 mg DAILY PO 11/26/17 09:00 11/28/17 08:56 (Dilaudid Pf Inj) 0.5 mg Q3H PRN IV PUSH 11/26/17 13:00 (Percocet 5-325 Mg) 1 tab Q4H PRN PO 11/26/17 13:00 (Percocet 10-325 Mg) 1 tab Q4H PRN PO 11/26/17 13:00 11/28/17 22:36 Lactated Ringer's 1,000 ml @ 30 mls/hr Q24H PRN IV 11/28/17 02:15 12/01/17 02:14 11/28/17 05:47 (Depakene) 500 mg Q8HR PO 11/28/17 14:00 11/29/17 05:10 (K-Lyte Cl Eff) 50 meq ONCE ONCE PO 11/29/17 10:30 11/29/17 10:31 UNV (Citroma Liq) 300 ml ONCE ONCE PO 11/29/17 16:00 11/29/17 16:01 UNV (Citroma Liq) 300 ml ONCE ONCE PO 11/29/17 18:00 11/29/17 18:01 UNV A/P Assessment and Plan Severe sepsis Secondary to thigh abscess. Status post multiple surgeries. Wound VAC in place. Appreciate general surgery, orthopedic surgery and ID recommendations. - Continue antibiotics per infectious disease. - Repeat I&D planned today per orthopedic surgery. Acute respiratory failure Resolved. Now on 2 L nasal cannula. CXR shows bibasilar patchy opacities. - oxygen and nebs as needed. - repeat CXR in AM. Acute anemia Secondary to blood loss from procedures. Patient has received a total of 8 units PRBCs during this hospitalization. - H/H low, but stable. Schizoaffective disorder - Continue Depakote, risperidone, Abilify. DVT prophylaxis: TORSTEN Abel. Avoid chemical prophylaxis secondary to multiple surgical procedures. Armando Sauer DO Nov 29, 2017 10:22
[2017-11-29] MEDS ORDERED: POTASSIUM CHLORIDE 25 MEQ EFFERVESCENT TAB PO ONE (10:30)
--- NOTE | 2017-11-29 10:54 | PD.CONS ---
HPI History of Present Illness This is a 41 year old male with schizoaffective disorder who presented with right thigh abscess which is now s/p multiple I& D's. GI has been consulted for heme positive stool. Pt is unable to provide any meaningful hx. Per RN she saw some bright red blood in his stool this morning. He has been anemic since admission. Pt says he has never had an EGD or colonoscopy. ATtempted to call his mother Jennifer Price but got voicemail. (Selene Hoskins) PFSH Past Medical History neuropathy right leg schizoaffective depression anxiety Past Surgical History multiple irrigation and debridement, incision drainage right leg (Selene Hoskins) Coded Allergies: diphenhydramine (Verified Adverse Reaction, Unknown, 11/08/17) Family History unk Social History unk (Selene Hoskins) Review of Systems noncontributory (Selene Hoskins) GI Exam Vitals I&O Vital Signs Date Time Temp Pulse Resp B/P (MAP) Pulse Ox O2 Delivery O2 Flow Rate FiO2 11/29/17 09:49 93 Nasal Cannula 2.00 11/29/17 08:00 97.8 76 19 128/76 (93) 93 11/29/17 00:00 97.1 90 18 141/78 (99) 91 11/28/17 20:50 Nasal Cannula 2.00 11/28/17 20:00 97.3 87 18 131/78 (95) 91 11/28/17 16:00 95.9 78 15 125/102 (110) 98 11/28/17 12:00 96.3 69 17 139/86 (103) 94 I/O 11/28/17 11/28/17 11/28/17 11/29/17 11/29/17 11/29/17 07:00 15:00 23:00 07:00 15:00 23:00 Intake Total 1345 ml 100 ml 800 ml 0 ml Output Total 750 ml 3185 ml 2600 ml Balance 595 ml 100 ml -2385 ml -2600 ml Intake Oral 240 ml 800 ml 0 ml IV Total 1105 ml 100 ml Output Urine Total 750 ml 3050 ml 2500 ml Drainage Total 135 ml 100 ml # Bowel Movements 1 1 2 Imaging Last Impressions Chest X-Ray 2/9/18 0000 Signed Impressions: Service Date/Time: Saturday, November 25, 2017 11:58 - CONCLUSION: 1. Bibasilar patchy opacities could be atelectasis or infiltrate. Amaury Lee MD Lower Extremity CT 11/15/17 Signed Impressions: Service Date/Time: Wednesday, November 15, 2017 13:22 - CONCLUSION: Extensive fluid surrounding the quadriceps musculature of the right thigh as well as air within the collection anteriorly and laterally which raises the possibility of abscess/infection. Fluid is also noted extending into the region of the gluteus muscles on the right. Diffuse subcutaneous edema the right thigh is noted. Compartment syndrome should be ruled out. Jez Chowdhury MD Abdomen/Pelvis CT 11/15/17 Signed Impressions: Service Date/Time: Wednesday, November 15, 2017 13:22 - CONCLUSION: The abnormal soft tissue mass now has compartmentalized fluid collections and absence of air in the right soft tissues of thigh and gluteal region. This probably represents improving inflammatory or infectious process such as abscess. Small bilateral pleural effusions persist with a new consolidation with air bronchogram in the left lower lobe. Ascitic fluid suggested in the pelvis Silvio Laguerre MD Lower Extremity Ultrasound 11/08/172011 Signed Impressions: Service Date/Time: Wednesday, November 08, 2017 20:41 - CONCLUSION: 1. Negative for deep venous thrombosis. There are mildly enlarged right inguinal lymph nodes. Bertrand Smalls MD Thoracic Spine MRI 11/08/17 Signed Impressions: Service Date/Time: Wednesday, November 08, 2017 22:01 - CONCLUSION: 1. Small bilateral pleural effusions. 2. No signal abnormalities in the thoracic vertebral bodies and no evidence of focal disc disease. Jace Bird MD Lumbar Spine MRI 11/08/17 Signed Impressions: Service Date/Time: Wednesday, November 08, 2017 22:01 - CONCLUSION: 1. No evidence of lumbar disc disease. 2. Soft tissue abnormality about the right gluteal region suggesting abscess with T2 prolongation and contrast enhancement ; this is incompletely included in the [id number] of the exam. 3. There is also abnormal signal within the marrow of the sacral and coccygeal marrow including contrast enhancement suggesting that the right thigh and gluteal abnormality may extend intraosseous, possibly osteomyelitis. Jace Bird MD Laboratory Test 11/29/17 06:00 White Blood Count 7.9 TH/MM3 Red Blood Count 2.88 MIL/MM3 Hemoglobin 8.2 GM/DL Hematocrit 23.6 % Mean Corpuscular Volume 82.2 FL Mean Corpuscular Hemoglobin 28.7 PG Mean Corpuscular Hemoglobin Concent 34.9 % Red Cell Distribution Width 17.4 % Platelet Count 305 TH/MM3 Mean Platelet Volume 7.9 FL Neutrophils (%) (Auto) 67.6 % Lymphocytes (%) (Auto) 11.7 % Monocytes (%) (Auto) 17.9 % Eosinophils (%) (Auto) 0.2 % Basophils (%) (Auto) 2.6 % Neutrophils # (Auto) 5.3 TH/MM3 Lymphocytes # (Auto) 0.9 TH/MM3 Monocytes # (Auto) 1.4 TH/MM3 Eosinophils # (Auto) 0.0 TH/MM3 Basophils # (Auto) 0.2 TH/MM3 CBC Comment DIFF FINAL Differential Comment Blood Urea Nitrogen 6 MG/DL Creatinine 0.51 MG/DL Random Glucose 97 MG/DL Calcium Level 8.1 MG/DL Sodium Level 140 MEQ/L Potassium Level 3.6 MEQ/L Chloride Level 101 MEQ/L Carbon Dioxide Level 33.9 MEQ/L Anion Gap 5 MEQ/L Estimat Glomerular Filtration Rate 181 ML/MIN Valproic Acid (Depakene) Level 45 MCG/ML Date/Time Source Procedure Growth Status 11/15/17 10:51 Blood Peripheral Blood Fungal Culture - Preliminary NO GROWTH IN 1 WEEK Resulted 11/15/17 10:51 Blood Peripheral Blood Fungal Culture - Preliminary NO GROWTH IN 1 WEEK Resulted 11/16/17 11:57 Fluid Other Fungal Smear - Final NO FUNGAL ELEMENTS SEEN. Resulted 11/16/17 11:57 Fluid Other Fungal Culture - Preliminary NO GROWTH IN 1 WEEK Resulted 11/28/17 16:30 Stool Stool Stool Occult Blood (ALIN) - Final HEMOCCULT POSITIVE Complete 11/08/17 21:45 Urine Catheterized Urine Urine Culture - Final NO GROWTH IN 48 HOURS. Complete 11/21/17 08:37 Wound Hip Fungal Smear - Final NO FUNGAL ELEMENTS SEEN. Resulted 11/21/17 08:37 Wound Hip Fungal Culture - Preliminary NO GROWTH IN 1 WEEK Resulted Physical Examination HEENT: normocephalic; atraumatic; no jaundice. CHEST: respirations unlabored ABDOMEN: nondistended EXTREMITIES: No clubbing, cyanosis, or edema. SKIN: Normal; no rash; no jaundice. CAR LOADER: alert (Selene Hoskins) Assessment and Plan Plan ASSESSMENT - BRBPR, anemia - anemia likely multifactorial. report of red blood in stool this am. heme pos stool. attempted to call Jennifer Price [phone] to discuss procedures but was unable to speak with her PLAN - colonoscopy in am - obtain consent - mg citrate prep - clears today - NPO after midnight - monitor labs - further recs to follow pt seen by myself and Dr Maza and this note is written on his behalf (Selene Hoskins) Physician Comments Patient seen and examined Agree with above Continue with current supportive care Monitor labs Plan for colonoscopy tomorrow (Wallace Maza MD) Selene Hoskins Nov 29, 2017 10:54 Wallace Maza MD Nov 29, 2017 17:36
[2017-11-29] MEDS ORDERED: DEXAMETHASONE SOD PHOS 4 MG/ML VIAL IV ONE (12:00)
[2017-11-29] MEDS ORDERED: ONDANSETRON HCL 4 MG/2 ML VIAL IV ONE (12:00)
[2017-11-29] MEDS ORDERED: GLYCOPYRROLATE 1 MG/5 ML SYRINGE IV PUSH ONE (12:00)
[2017-11-29] MEDS ORDERED: LIDOCAINE HCL 1% PF 5 ML SYRINGE OTHER ONE (12:00)
[2017-11-29] MEDS ORDERED: PROPOFOL 200 MG/20 ML AMP IV ONE (12:00)
[2017-11-29] MEDS ORDERED: NEOSTIGMINE 5 MG/5 ML SYRINGE IV PUSH ONE (12:00)
[2017-11-29] MEDS ORDERED: PHENYLEPH/NS 1000 MCG/10 ML SYR IV ONE (12:00)
[2017-11-29] MEDS ORDERED: ROCURONIUM INJ 50 MG/5 ML SYRINGE IV PUSH ONE (12:00)
[2017-11-29] MEDS ORDERED: LIDOCAINE 2% JELLY 30 ML TUBE ONE (12:38)
[2017-11-29] MEDS ORDERED: LIDOCAINE HCL 2% JELLY 5 ML SYRINGE ONE (12:38)
[2017-11-29] MEDS ORDERED: BUPIVACAINE/EPINEPHRINE 0.25% 50 ML VIAL ONE (12:39)
[2017-11-29] MEDS ORDERED: MINERAL OIL 10 ML VIAL ONE (12:39)
[2017-11-29] MEDS ORDERED: GENTAMICIN SULFATE 80 MG/2 ML VIAL ONE (12:39)
[2017-11-29] MEDS: HYDROmorphone HCL PF 2 MG/ML VIAL IV PUSH PRN ×4 (13:40→23:16)
[2017-11-29] MEDS ORDERED: HYDROmorphone HCL PF 2 MG/ML VIAL ONE (14:07)
[2017-11-29] MEDS ORDERED: ACETAMINOPHEN 1000 MG/100 ML 100 ML IV ONE (14:07)
--- NOTE | 2017-11-29 14:59 | PD.OP ---
cc: Reynaldo West MD Operative Report Date of Surgery: Nov 29, 2017 Preoperative Diagnosis: Thigh infection with open wound 25 cm x 11 cm Postoperative Diagnosis: Procedure: Irrigation and debridement right thigh, split thickness skin graft 250 cm Anesthesia: Gen. Surgeon: Reynaldo West Shoe Stamper(s): Gigi Rodríguez PA-C The surgical procedure was assisted by my physician entry level administrative assistant. My P.A. presence was necessary throughout this case for the manipulation and positioning of the surgical extremity. My P.A. was assisting me throughout the duration of this procedure. The skill set of a physician entry level administrative assistant was medically necessary to complete this procedure. During the surgical case the industrial ecology technician was working at the back table and the physician entry level administrative assistant was directly assisting me. Operation and Findings: Patient brought to operating room and given IV sedation and general anesthesia. Timeout procedure was performed. IV antibiotics were administered. The right leg and left thigh were prepped with alcohol followed by Hibiclens and draped in usual sterile fashion. Procedure began with irrigation and debridement of the open wound. Skin subcutaneous tissue and fascia were sharply debrided. Overall the wound was healthy. Muscle appeared be healthy and viable. There was granulation tissue forming. Wound was now thoroughly irrigated with sterile saline. Next was turned to skin grafting. Using the Sheela dermatome set at 0.016 skin graft was obtained from the thigh. Skin graft was now meshed at a ratio of 1- 2. The skin graft was now placed over the open wound. The open wound measured 25 cm x 11 cm. Skin graft was stapled into position. The open wound was completely covered. Skin graft was now covered with Xeroform. A VAC dressing was cut to fit over the wound. VAC dressing was sealed appropriately. A compressive dressing was applied. VAC dressing was set on continuous. Patient was awakened and transferred to recovery in stable condition. Reynaldo West MD Nov 29, 2017 14:59
[2017-11-29] MEDS: LACTATED RINGER'S 1000 ML INJ 1,000 ML IV SCH (15:00)
[2017-11-29] MEDS ORDERED: DO NOT ADM ANY ANTICOAGULANT DRUGS PRN (15:23)
[2017-11-29] MEDS ORDERED: MORPHINE SULFATE 4 MG/ML INJ ONE (15:37)
[2017-11-29] MEDS ORDERED: MAGNESIUM CITRATE SOLN 300 ML BTL PO ONE ×2 (16:00→18:00)
[2017-11-29 16:24] VITALS: BP 124/80; PULSE 68; RESP 16; TEMP 96.1; O2SAT 95
[2017-11-29] MEDS: FAMOTIDINE 20 MG/2 ML VIAL IV PUSH SCH ×2 (16:30→19:20)
[2017-11-29] MEDS: FLUCONAZOLE 200 MG TAB PO SCH (16:30)
[2017-11-29] MEDS: SODIUM CHLORIDE 0.9% FLUSH 10 ML FLUSH IV FLUSH SCH ×2 (16:31→19:20)
[2017-11-29] MEDS: cefTRIAXone INJ 2,000 MG in SODIUM CHLORIDE 0.9% INJ 100 ML IV SCH (16:32)
[2017-11-29] MEDS: oxyCODONE/ACETAMINOPHEN 10 MG/325 MG TAB PO PRN ×2 (18:19→22:07)
[2017-11-29 20:26] VITALS: BP 121/76; PULSE 68; RESP 18; TEMP 97.2; O2SAT 96
[2017-11-30] VITALS (7 sets, daily range): BP systolic 115–144; BP diastolic 69–92; PULSE 74–112; RESP 16–22; TEMP 96.3–99.3; O2SAT 94–98
[2017-11-30] MEDS: LACTATED RINGER'S 1000 ML INJ 1,000 ML IV SCH ×3 (01:00→20:14)
[2017-11-30] MEDS: oxyCODONE/ACETAMINOPHEN 10 MG/325 MG TAB PO PRN ×2 (02:09→18:59)
[2017-11-30] MEDS: HYDROmorphone HCL PF 2 MG/ML VIAL IV PUSH PRN ×2 (03:06→20:17)
[2017-11-30] MEDS: CHLORHEXIDINE GLUCONATE 2 % 1 PACK (2 CLOTHS) TOP SCH (04:00)
--- NOTE | 2017-11-30 05:52 | RADRPT ---
EXAM DATE/TIME: 11/30/2017 05:14 [facility] COMPARISON: No previous studies available for comparison. INDICATIONS : Shortness of breath. MEDICAL HISTORY : Schizophrenia. Bipolar disorder SURGICAL HISTORY : Placement of VAC on right hip ENCOUNTER: Subsequent ACUITY: 3 weeks PAIN SCORE: 0/10 LOCATION: Bilateral chest FINDINGS: Bilateral lower lobe airspace disease and cardiomegaly again seen. No effusions. Osseous structures a re intact. CONCLUSION: No significant change has occurred. Oscar Mcmanus MD on November 30, 2017 at 5:50 Board Certified Radiologist. This report was verified electronically.
[2017-11-30] MEDS: NYSTATIN 100,000 UNIT/GM CREAM 15 GM TOPICAL SCH ×3 (06:00→18:00)
[2017-11-30] MEDS: metroNIDAZOLE 500 MG TAB PO SCH ×3 (06:04→20:16)
[2017-11-30] MEDS: VALPROIC ACID 250 MG CAP PO SCH ×3 (06:04→20:16)
--- NOTE | 2017-11-30 07:12 | PD.ORT.PN ---
Subjective Subjective Remarks POD 1 s/p I&D right thigh with with skin grafting stable. awake and alert. reports he feels good. Objective Vitals Vital Signs Date Time Temp Pulse Resp B/P (MAP) Pulse Ox O2 Delivery O2 Flow Rate FiO2 11/30/17 05:13 97.3 85 20 120/81 (94) 94 11/30/17 03:36 18 11/30/17 03:09 18 11/30/17 00:17 96.3 74 17 115/69 (84) 94 11/29/17 20:26 97.2 68 18 121/76 (91) 96 11/29/17 19:20 Nasal Cannula 2.00 11/29/17 16:24 96.1 68 16 124/80 (95) 95 11/29/17 16:05 98.5 71 16 110/63 (79) 100 Nasal Cannula 11/29/17 15:29 97.5 78 16 125/75 (92) 97 Nasal Cannula 2 11/29/17 09:49 93 Nasal Cannula 2.00 11/29/17 08:00 93 Nasal Cannula 2.00 11/29/17 08:00 97.8 76 19 128/76 (93) 93 I/O 11/29/17 11/29/17 11/29/17 11/30/17 11/30/17 11/30/17 07:00 15:00 23:00 07:00 15:00 23:00 Intake Total 0 ml 2500 ml 780 ml Output Total 2600 ml 1860 ml 2000 ml Balance -2600 ml 640 ml -1220 ml Intake Oral 0 ml 600 ml 780 ml IV Total 300 ml Other 1600 ml Output Urine Total 2500 ml 1850 ml 1800 ml Drainage Total 100 ml 200 ml Estimated Blood Loss 10 ml # Bowel Movements 2 2 4 Result Diagram: 11/29/17 0600 11/29/17 06 Imaging Last 24 hours Impressions Chest X-Ray 11/30/17 06 Signed Impressions: Service Date/Time: Thursday, November 30, 2017 05:14 - CONCLUSION: No significant change has occurred. Oscar Mcmanus MD Objective Remarks Awake, alert, no acute distress RLE: +vac with good seal. good cap refill distally, moves toes R leg. No tenderness R calf LLE: harvest site clean and dry. xeroform in place. Assessment & Plan Assessment and Plan 1) Right Leg Infection s/p I&D with skin grafting right thigh - POD 1 -vac settings: 125mmHg, low, continuous -maintain vac at all times -will maintain vac for 5 days. plan to DC at bedside by Sy team on Tuesday -do not remove xeroform from harvest site on left leg. ok to change ABDs if saturated but do not remove xeroform. Gigi Rodríguez/Project Development Coordinator PA Nov 30, 2017 07:12
[2017-11-30] MEDS: CHLORHEXIDINE 0.12% (ORAL KIT) 15 ML CUP MT SCH ×2 (08:00→20:00)
[2017-11-30] MEDS: SODIUM CHLORIDE 0.9% FLUSH 10 ML FLUSH IV FLUSH SCH ×2 (09:00→20:14)
[2017-11-30] MEDS: risperiDONE ODT 3 MG TAB PO SCH ×2 (09:00→20:15)
[2017-11-30] MEDS: FLUCONAZOLE 200 MG TAB PO SCH (09:50)
[2017-11-30] MEDS: ARIPiprazole 5 MG TAB PO SCH (09:50)
[2017-11-30] MEDS: hydrOXYzine HCL 50 MG TAB PO SCH ×2 (09:50→20:15)
[2017-11-30] MEDS: FAMOTIDINE 20 MG/2 ML VIAL IV PUSH SCH ×2 (09:50→20:14)
[2017-11-30] MEDS: SODIUM CHLORIDE 0.9% FLUSH 10 ML FLUSH IV FLUSH PRN (11:10)
[2017-11-30] MEDS: LACTATED RINGER'S 1000 ML IV PRN (11:10)
[2017-11-30] MEDS ORDERED: PROPOFOL 200 MG/20 ML AMP IV ONE (12:00)
[2017-11-30 12:28] LABS: HEMATOCRIT 25.1 % (39.0-51.0); HEMOGLOBIN 8.4 GM/DL (13.0-17.0); MEAN CELL VOLUME 82.9 FL (80.0-100.0); MEAN CORPUSCULAR HEMOGLOBIN 27.8 PG (27.0-34.0); MEAN CORPUSCULAR HGB CONC 33.6 % (32.0-36.0); MEAN PLATELET VOLUME 7.9 FL (7.0-11.0); PLATELET COUNT 390 TH/MM3 (150-450); RED BLOOD COUNT 3.03 MIL/MM3 (4.50-5.90); RED CELL DISTRIBUTION WIDTH 17.7 % (11.6-17.2); WHITE BLOOD COUNT 8.5 TH/MM3 (4.0-11.0)
[2017-11-30 12:55] LABS: BICARBONATE 34.3 MEQ/L (21.0-32.0); CALCIUM 8.1 MG/DL (8.5-10.1); CREATININE 0.59 MG/DL (0.60-1.30); MAGNESIUM 2.2 MG/DL (1.5-2.5)
--- NOTE | 2017-11-30 13:36 | PD.PROCEDR ---
GI Procedure PROCEDURE PERFORMED Colonoscopy With biopsy INDICATION FOR PROCEDURE Rectal bleeding PROCEDURE: The procedure, risks and benefits were discussed with Mr. Price and informed consent was obtained. Anesthesia sedated him with Diprivan. He was placed in the left lateral decubitus position. Colonoscopy: The Pentax videoscope was introduced through the rectum and advanced to cecum where the ileocecal valve and appendiceal orifice were identified. Retroflexion was performed in the rectum. Colonic prep was fair FINDINGS: Colonic withdrawal time greater than 6 minutes as the scope was slowly withdrawn colonic mucosa was carefully inspected it was all unremarkable except for a large fungating irregular friable mass in the rectum suspicious for malignancy severely compromising the lumen this was biopsied I was unable to perform retroflexion colonoscopy otherwise unremarkable ESTIMATED BLOOD LOSS: Minimal due to the friability of the mass SPECIMENS REMOVED: Multiple rectal biopsies COMPLICATIONS: None IMPRESSION: Friable fungating irregular rectal mass suspicious for malignancy possibly also inflammatory PLAN: Await biopsies We'll get a CEA Consider repeat CT based on biopsy Wallace Maza MD Nov 30, 2017 13:36
[2017-11-30] MEDS ORDERED: ALPRAZolam 0.5 MG TAB PO ONE (15:00)
[2017-11-30] MEDS: cefTRIAXone INJ 2,000 MG in SODIUM CHLORIDE 0.9% INJ 100 ML IV SCH (15:15)
--- NOTE | 2017-11-30 15:20 | HHI.PR ---
Subjective Remarks The patient really wants to be discharged from the hospital soon. He says that alprazolam would help him feel better. Discussed with nursing. Objective Vitals Vital Signs Date Time Temp Pulse Resp B/P (MAP) Pulse Ox O2 Delivery O2 Flow Rate FiO2 11/30/17 13:32 97.6 73 16 129/85 (100) 89 11/30/17 09:00 98 Nasal Cannula 2.00 11/30/17 08:00 97.5 76 18 129/79 (96) 97 11/30/17 05:13 97.3 85 20 120/81 (94) 94 11/30/17 03:36 18 11/30/17 03:09 18 11/30/17 00:17 96.3 74 17 115/69 (84) 94 11/29/17 20:26 97.2 68 18 121/76 (91) 96 11/29/17 19:20 Nasal Cannula 2.00 11/29/17 16:24 96.1 68 16 124/80 (95) 95 11/29/17 16:05 98.5 71 16 110/63 (79) 100 Nasal Cannula 11/29/17 15:29 97.5 78 16 125/75 (92) 97 Nasal Cannula 2 I/O 11/29/17 11/29/17 11/29/17 11/30/17 11/30/17 11/30/17 07:00 15:00 23:00 07:00 15:00 23:00 Intake Total 0 ml 2500 ml 780 ml 400 ml Output Total 2600 ml 1860 ml 2000 ml Balance -2600 ml 640 ml -1220 ml 400 ml Intake Oral 0 ml 600 ml 780 ml IV Total 300 ml Other 1600 ml 400 ml Output Urine Total 2500 ml 1850 ml 1800 ml Drainage Total 100 ml 200 ml Estimated Blood Loss 10 ml # Bowel Movements 2 2 4 Result Diagram: 11/30/17 1040 11/30/17 1040 Imaging Last Impressions Chest X-Ray 11/30/17 0600 Signed Impressions: Service Date/Time: Thursday, November 30, 2017 05:14 - CONCLUSION: No significant change has occurred. Oscar Mcmanus MD Lower Extremity CT 11/15/17 0000 Signed Impressions: Service Date/Time: Wednesday, November 15, 2017 13:22 - CONCLUSION: Extensive fluid surrounding the quadriceps musculature of the right thigh as well as air within the collection anteriorly and laterally which raises the possibility of abscess/infection. Fluid is also noted extending into the region of the gluteus muscles on the right. Diffuse subcutaneous edema the right thigh is noted. Compartment syndrome should be ruled out. Jez Chowdhury MD Abdomen/Pelvis CT 11/15/17 0000 Signed Impressions: Service Date/Time: Wednesday, November 15, 2017 13:22 - CONCLUSION: The abnormal soft tissue mass now has compartmentalized fluid collections and absence of air in the right soft tissues of thigh and gluteal region. This probably represents improving inflammatory or infectious process such as abscess. Small bilateral pleural effusions persist with a new consolidation with air bronchogram in the left lower lobe. Ascitic fluid suggested in the pelvis Silvio Laguerre MD Lower Extremity Ultrasound 11/08/172011 Signed Impressions: Service Date/Time: Wednesday, November 08, 2017 20:41 - CONCLUSION: 1. Negative for deep venous thrombosis. There are mildly enlarged right inguinal lymph nodes. Bertrand Smalls MD Thoracic Spine MRI 11/08/17 0000 Signed Impressions: Service Date/Time: Wednesday, November 08, 2017 22:01 - CONCLUSION: 1. Small bilateral pleural effusions. 2. No signal abnormalities in the thoracic vertebral bodies and no evidence of focal disc disease. Jace Bird MD Lumbar Spine MRI 11/08/17 0000 Signed Impressions: Service Date/Time: Wednesday, November 08, 2017 22:01 - CONCLUSION: 1. No evidence of lumbar disc disease. 2. Soft tissue abnormality about the right gluteal region suggesting abscess with T2 prolongation and contrast enhancement ; this is incompletely included in the [id number] of the exam. 3. There is also abnormal signal within the marrow of the sacral and coccygeal marrow including contrast enhancement suggesting that the right thigh and gluteal abnormality may extend intraosseous, possibly osteomyelitis. Jace Bird MD Objective Remarks General: No acute distress. HEENT: NC, AT. Heart: Regular rate and rhythm. No murmur. Lungs: Diminished in both bases. Scattered rhonchi. Breathing is nonlabored. Abdomen: Soft, nontender, nondistended. Extremities: No lower extremity edema. Wound VAC on the right thigh. Neuro: Alert, answers questions appropriately. Psych: Mood and affect appropriate. Procedures 11/09/17 incision and drainage, irrigation and debridement of right hip abscess with placement of VAC dressing 11/11/17 removal of VAC device, irrigation and debridement of right gluteal hip abscess with placement of drain and replacement of VAC 11/16/17 irrigation and debridement of pelvic infection and abscess, irrigation and debridement of right thigh abscess, right knee arthrotomy with irrigation and debridement 11/16/17 incision and drainage, irrigation and debridement of complex lower extremity abscess with removal of subcutaneous tissue, fascia, and muscle, with application of VAC device 11/18/17 irrigation and debridement of right pelvis and hip, irrigation and debridement of right thigh, irrigation and debridement of right knee 11/21/17 irrigation and debridement of right hip, right thigh, and right knee. Application of wound VAC dressing 11/24/17 irrigation and debridement of right hip, right thigh, right knee. Secondary wound closure, application of wound VAC 11/30/17 I&D with skin grafting right thigh 12/01/17 Colonoscopy Medications and IVs Current Medications Medications (Trade) Dose Ordered Sig/Mega Route Start Time Stop Time Status Last Admin (Atarax) 50 mg BID PO 11/09/17 09:00 11/30/17 09:50 (risperDAL) 3 mg DAILY PO 11/09/17 09:00 Future Hold 11/13/17 08:02 (NS Flush) 2 ml UNSCH PRN IV FLUSH 11/08/17 23:15 11/30/17 11:10 (NS Flush) 2 ml BID IV FLUSH 11/09/17 09:00 11/29/17 19:20 (Tylenol) 650 mg Q6H PRN PO 11/08/17 23:15 11/11/17 04:42 (Pepcid Inj) 20 mg Q12HR IV PUSH 11/09/17 09:00 11/30/17 09:50 (Zofran Inj) 4 mg Q6H PRN IV PUSH 11/08/17 23:15 (Restoril) 15 mg HS PRN PO 11/08/17 23:15 11/27/17 00:52 (Duoneb Neb) 1 ampule Q2HR NEB PRN INH 11/08/17 23:15 11/20/17 14:49 Miscellaneous Information 1 Q361D XX 11/08/17 23:15 11/08/17 01:00 (Chlorhexidine 2% Cloth) 3 pack Taper DAILY@04 TOP 11/09/17 04:00 11/05/18 03:59 11/25/17 04:00 (Chlorhexidine 2% Cloth) 3 pack UNSCH PRN TOP 11/08/17 23:15 (Peridex 0.12% Liq) 15 ml BID@08,20 MT 11/09/17 20:00 11/25/17 10:20 (risperDAL M-TAB) 3 mg Q12HR PO 11/13/17 21:00 11/30/17 09:00 (Mycostatin Cream) 1 applic Q6HR TOPICAL 11/15/17 18:00 11/30/17 06:00 (Abilify) 5 mg DAILY PO 11/17/17 14:45 11/30/17 09:50 Vancomycin HCl 4000 mg/ Tobramycin Sulfate 2400 mg/ Micafungin Sodium 1000 mg/Sodium Chloride 3,000 ml @ 0 mls/hr ART APPRAISER IRRIGATION 11/21/17 07:45 Ceftriaxone Sodium 2000 mg/ Sodium Chloride 100 ml @ 200 mls/hr Q24H IV 11/22/17 15:00 11/29/17 16:32 (Flagyl) 500 mg Q8HR PO 11/25/17 14:00 11/30/17 15:04 (Diflucan) 400 mg DAILY PO 11/26/17 09:00 11/30/17 09:50 (Dilaudid Pf Inj) 0.5 mg Q3H PRN IV PUSH 11/26/17 13:00 11/30/17 03:06 (Percocet 5-325 Mg) 1 tab Q4H PRN PO 11/26/17 13:00 (Percocet 10-325 Mg) 1 tab Q4H PRN PO 11/26/17 13:00 11/30/17 02:09 (Depakene) 500 mg Q8HR PO 11/28/17 14:00 11/30/17 15:05 Lactated Ringer's 1,000 ml @ 100 mls/hr Q10H IV 11/29/17 15:00 11/30/17 14:58 Miscellaneous Information ALL NURSING DEPARTME... UNSCH PRN .XX 11/29/17 15:23 11/30/17 15:22 Lactated Ringer's 1,000 ml @ 30 mls/hr Q24H PRN IV 11/30/17 02:15 12/03/17 02:14 11/30/17 11:10 (Xanax) 0.5 mg Q8H PRN PO 11/30/17 22:00 A/P Assessment and Plan Severe sepsis Secondary to thigh abscess. Status post multiple surgeries. Wound VAC in place. Appreciate general surgery, orthopedic surgery and ID recommendations. S /p I&D with skin grafting right thigh 11/30. - Continue antibiotics per infectious disease. - continue wound vac/ wound care per ortho. Acute respiratory failure Resolved. Now on 2 L nasal cannula. CXR shows bibasilar patchy opacities. CXR stable. - oxygen and nebs as needed. Acute anemia Secondary to blood loss from procedures. Patient has received a total of 8 units PRBCs during this hospitalization. - H/H low, but stable. Schizoaffective disorder The pt is endorsing anxiety. - Continue Depakote, risperidone, Abilify. - Alprazolam as needed. DVT prophylaxis: TORSTEN Abel. Avoid chemical prophylaxis secondary to multiple surgical procedures. Armando Sauer DO Nov 30, 2017 15:20
[2017-12-01] VITALS: BP 123/73; PULSE 77; RESP 18; TEMP 96.9; O2SAT 98
[2017-12-01] MEDS: CHLORHEXIDINE GLUCONATE 2 % 1 PACK (2 CLOTHS) TOP SCH (01:06)
[2017-12-01] MEDS: oxyCODONE/ACETAMINOPHEN 10 MG/325 MG TAB PO PRN ×4 (01:08→21:44)
[2017-12-01] MEDS: HYDROmorphone HCL PF 2 MG/ML VIAL IV PUSH PRN ×3 (01:53→17:00)
[2017-12-01] MEDS: metroNIDAZOLE 500 MG TAB PO SCH ×3 (05:07→23:05)
[2017-12-01] MEDS: VALPROIC ACID 250 MG CAP PO SCH ×3 (05:07→23:04)
[2017-12-01] MEDS: NYSTATIN 100,000 UNIT/GM CREAM 15 GM TOPICAL SCH ×5 (05:08→23:07)
[2017-12-01] MEDS: LACTATED RINGER'S 1000 ML INJ 1,000 ML IV SCH ×2 (07:00→23:08)
--- NOTE | 2017-12-01 07:04 | PD.ORT.PN ---
Subjective Subjective Remarks POD 2 s/p I&D right thigh with with skin grafting stable. awake and alert. reports he feels good. Objective Vitals Vital Signs Date Time Temp Pulse Resp B/P (MAP) Pulse Ox O2 Delivery O2 Flow Rate FiO2 12/01/17 00:00 96.9 77 18 123/73 (90) 98 11/30/17 20:15 Nasal Cannula 3.00 11/30/17 20:01 96 Nasal Cannula 2.00 11/30/17 20:00 96.8 80 16 144/92 (109) 95 11/30/17 20:00 99.3 112 22 128/80 (96) 97 11/30/17 16:00 97.2 79 18 137/88 (104) 97 11/30/17 13:32 97.6 73 16 129/85 (100) 89 11/30/17 09:00 98 Nasal Cannula 2.00 11/30/17 08:00 Nasal Cannula 2.00 11/30/17 08:00 97.5 76 18 129/79 (96) 97 I/O 11/30/17 11/30/17 11/30/17 12/01/17 12/01/17 12/01/17 07:00 15:00 23:00 07:00 15:00 23:00 Intake Total 780 ml 400 ml 1700 ml Output Total 2000 ml 2500 ml 2575 ml Balance -1220 ml 400 ml -800 ml -2575 ml Intake Oral 780 ml 1200 ml IV Total 500 ml Other 400 ml Output Urine Total 1800 ml 2500 ml 2500 ml Drainage Total 200 ml 75 ml # Bowel Movements 4 1 Result Diagram: 11/30/17 1040 11/30/17 1040 Imaging Last 24 hours Impressions Chest X-Ray 11/30/17 0600 Signed Impressions: Service Date/Time: Thursday, November 30, 2017 05:14 - CONCLUSION: No significant change has occurred. Oscar Mcmanus MD Objective Remarks Awake, alert, no acute distress RLE: +vac with good seal. good cap refill distally, moves toes R leg. No tenderness R calf LLE: harvest site clean and dry. xeroform in place. Assessment & Plan Assessment and Plan 1) Right Leg Infection s/p I&D with skin grafting right thigh - POD 2 -vac settings: 125mmHg, low, continuous -maintain vac at all times. do not change dressings to right leg -will maintain vac for 5 days. plan to DC at bedside by Dan team on Tuesday -do not remove xeroform from harvest site on left leg. ok to change ABDs if saturated but do not remove xeroform. Gigi Rodríguez/Manager Sign KARYN Dec 01, 2017 07:04
[2017-12-01] MEDS: LACTATED RINGER'S 1000 ML IV PRN (07:13)
[2017-12-01 08:00] VITALS: BP 104/64; PULSE 83; RESP 16; TEMP 97.1; O2SAT 92
[2017-12-01] MEDS: CHLORHEXIDINE 0.12% (ORAL KIT) 15 ML CUP MT SCH ×2 (08:00→20:00)
[2017-12-01 08:12] LABS: HEMATOCRIT 22.8 % (39.0-51.0); HEMOGLOBIN 7.5 GM/DL (13.0-17.0); MEAN CELL VOLUME 83.9 FL (80.0-100.0); MEAN CORPUSCULAR HEMOGLOBIN 27.4 PG (27.0-34.0); MEAN CORPUSCULAR HGB CONC 32.6 % (32.0-36.0); MEAN PLATELET VOLUME 7.5 FL (7.0-11.0); PLATELET COUNT 339 TH/MM3 (150-450); RED BLOOD COUNT 2.72 MIL/MM3 (4.50-5.90); RED CELL DISTRIBUTION WIDTH 18.4 % (11.6-17.2); WHITE BLOOD COUNT 7.6 TH/MM3 (4.0-11.0)
[2017-12-01] MEDS: SODIUM CHLORIDE 0.9% FLUSH 10 ML FLUSH IV FLUSH SCH ×2 (08:22→21:00)
[2017-12-01] MEDS: FLUCONAZOLE 200 MG TAB PO SCH (08:24)
[2017-12-01] MEDS: hydrOXYzine HCL 50 MG TAB PO SCH ×2 (08:24→21:45)
[2017-12-01] MEDS: FAMOTIDINE 20 MG/2 ML VIAL IV PUSH SCH ×2 (08:24→21:45)
[2017-12-01] MEDS: risperiDONE ODT 3 MG TAB PO SCH ×2 (08:25→21:00)
[2017-12-01] MEDS: ARIPiprazole 5 MG TAB PO SCH (08:25)
[2017-12-01 08:41] LABS: ALBUMIN 1.2 GM/DL (3.4-5.0); AST (GOT) 22 U/L (15-37); BICARBONATE 34.1 MEQ/L (21.0-32.0); BLOOD UREA NITROGEN 3 MG/DL (7-18); CALCIUM 7.6 MG/DL (8.5-10.1); CHLORIDE 100 MEQ/L (98-107); CREATININE 0.58 MG/DL (0.60-1.30); GLOMERULAR FILTRATION RATE 156 ML/MIN (>89); GLUCOSE,RANDOM 124 MG/DL (74-106); SODIUM (NA) 139 MEQ/L (136-145)
[2017-12-01 08:45] LABS: ALKALINE PHOSPHATASE 69 U/L (45-117); ALT (GPT) 7 U/L (12-78); TOTAL BILIRUBIN ADULT LESS THAN 0.1 MG/DL (0.2-1.0); TOTAL PROTEIN 4.9 GM/DL (6.4-8.2)
[2017-12-01 12:00] VITALS: BP 130/89; PULSE 80; RESP 16; TEMP 97.4; O2SAT 94
[2017-12-01 16:00] VITALS: BP 135/87; PULSE 81; RESP 16; TEMP 98.3; O2SAT 100
[2017-12-01] MEDS: cefTRIAXone INJ 2,000 MG in SODIUM CHLORIDE 0.9% INJ 100 ML IV SCH (16:40)
[2017-12-01] MEDS ORDERED: POTASSIUM CHLORIDE 25 MEQ EFFERVESCENT TAB PO ONE (17:00)
--- NOTE | 2017-12-01 17:22 | HHI.PR ---
Subjective Remarks The patient was seen along with his mother. He was upset by the news that the mass was in fact cancerous. Her questions were answered. The patient requested IV pain medication as he worked with physical therapy. Discussed with nursing at the bedside. Objective Vitals Vital Signs Date Time Temp Pulse Resp B/P (MAP) Pulse Ox O2 Delivery O2 Flow Rate FiO2 12/01/17 16:00 98.3 81 16 135/87 (103) 100 12/01/17 12:00 97.4 80 16 130/89 (103) 94 12/01/17 08:00 97.1 83 16 104/64 (77) 92 12/01/17 00:00 96.9 77 18 123/73 (90) 98 11/30/17 20:15 Nasal Cannula 3.00 11/30/17 20:01 96 Nasal Cannula 2.00 11/30/17 20:00 96.8 80 16 144/92 (109) 95 11/30/17 20:00 99.3 112 22 128/80 (96) 97 I/O 11/30/17 11/30/17 11/30/17 12/01/17 12/01/17 12/01/17 07:00 15:00 23:00 07:00 15:00 23:00 Intake Total 780 ml 400 ml 1700 ml Output Total 2000 ml 2500 ml 4575 ml Balance -1220 ml 400 ml -800 ml -4575 ml Intake Oral 780 ml 1200 ml IV Total 500 ml Other 400 ml Output Urine Total 1800 ml 2500 ml 4500 ml Drainage Total 200 ml 75 ml # Bowel Movements 4 1 0 Result Diagram: 12/01/17 0625 12/01/17 0625 Imaging Last Impressions Chest X-Ray 11/30/17 0600 Signed Impressions: Service Date/Time: Thursday, November 30, 2017 05:14 - CONCLUSION: No significant change has occurred. Oscar Mcmanus MD Lower Extremity CT 11/15/17 0000 Signed Impressions: Service Date/Time: Wednesday, November 15, 2017 13:22 - CONCLUSION: Extensive fluid surrounding the quadriceps musculature of the right thigh as well as air within the collection anteriorly and laterally which raises the possibility of abscess/infection. Fluid is also noted extending into the region of the gluteus muscles on the right. Diffuse subcutaneous edema the right thigh is noted. Compartment syndrome should be ruled out. Jez Chowdhury MD Abdomen/Pelvis CT 11/15/17 0000 Signed Impressions: Service Date/Time: Wednesday, November 15, 2017 13:22 - CONCLUSION: The abnormal soft tissue mass now has compartmentalized fluid collections and absence of air in the right soft tissues of thigh and gluteal region. This probably represents improving inflammatory or infectious process such as abscess. Small bilateral pleural effusions persist with a new consolidation with air bronchogram in the left lower lobe. Ascitic fluid suggested in the pelvis Silvio Laguerre MD Lower Extremity Ultrasound 11/08/172011 Signed Impressions: Service Date/Time: Wednesday, November 08, 2017 20:41 - CONCLUSION: 1. Negative for deep venous thrombosis. There are mildly enlarged right inguinal lymph nodes. Bertrand Smalls MD Thoracic Spine MRI 11/08/17 0000 Signed Impressions: Service Date/Time: Wednesday, November 08, 2017 22:01 - CONCLUSION: 1. Small bilateral pleural effusions. 2. No signal abnormalities in the thoracic vertebral bodies and no evidence of focal disc disease. Jace Bird MD Lumbar Spine MRI 11/08/17 0000 Signed Impressions: Service Date/Time: Wednesday, November 08, 2017 22:01 - CONCLUSION: 1. No evidence of lumbar disc disease. 2. Soft tissue abnormality about the right gluteal region suggesting abscess with T2 prolongation and contrast enhancement ; this is incompletely included in the [id number] of the exam. 3. There is also abnormal signal within the marrow of the sacral and coccygeal marrow including contrast enhancement suggesting that the right thigh and gluteal abnormality may extend intraosseous, possibly osteomyelitis. Jace Bird MD Objective Remarks General: No acute distress. HEENT: NC, AT. Heart: Regular rate and rhythm. No murmur. Lungs: Diminished in both bases. Scattered rhonchi. Breathing is nonlabored. Abdomen: Soft, nontender, nondistended. Extremities: No lower extremity edema. Wound VAC on the right thigh. Neuro: Alert, answers questions appropriately. Psych: Slightly anxious. Procedures 11/09/17 incision and drainage, irrigation and debridement of right hip abscess with placement of VAC dressing 11/11/17 removal of VAC device, irrigation and debridement of right gluteal hip abscess with placement of drain and replacement of VAC 11/16/17 irrigation and debridement of pelvic infection and abscess, irrigation and debridement of right thigh abscess, right knee arthrotomy with irrigation and debridement 11/16/17 incision and drainage, irrigation and debridement of complex lower extremity abscess with removal of subcutaneous tissue, fascia, and muscle, with application of VAC device 11/18/17 irrigation and debridement of right pelvis and hip, irrigation and debridement of right thigh, irrigation and debridement of right knee 11/21/17 irrigation and debridement of right hip, right thigh, and right knee. Application of wound VAC dressing 11/24/17 irrigation and debridement of right hip, right thigh, right knee. Secondary wound closure, application of wound VAC 11/30/17 I&D with skin grafting right thigh 12/01/17 Colonoscopy Medications and IVs Current Medications Medications (Trade) Dose Ordered Sig/Mega Route Start Time Stop Time Status Last Admin (Atarax) 50 mg BID PO 11/09/17 09:00 12/01/17 08:24 (risperDAL) 3 mg DAILY PO 11/09/17 09:00 Future Hold 11/13/17 08:02 (NS Flush) 2 ml UNSCH PRN IV FLUSH 11/08/17 23:15 11/30/17 11:10 (NS Flush) 2 ml BID IV FLUSH 11/09/17 09:00 11/30/17 20:14 (Tylenol) 650 mg Q6H PRN PO 11/08/17 23:15 11/11/17 04:42 (Pepcid Inj) 20 mg Q12HR IV PUSH 11/09/17 09:00 12/01/17 08:24 (Zofran Inj) 4 mg Q6H PRN IV PUSH 11/08/17 23:15 (Restoril) 15 mg HS PRN PO 11/08/17 23:15 11/27/17 00:52 (Duoneb Neb) 1 ampule Q2HR NEB PRN INH 11/08/17 23:15 11/20/17 14:49 Miscellaneous Information 1 Q361D XX 11/08/17 23:15 11/08/17 01:00 (Chlorhexidine 2% Cloth) 3 pack Taper DAILY@04 TOP 11/09/17 04:00 11/05/18 03:59 11/25/17 04:00 (Chlorhexidine 2% Cloth) 3 pack UNSCH PRN TOP 11/08/17 23:15 (Peridex 0.12% Liq) 15 ml BID@08,20 MT 11/09/17 20:00 11/25/17 10:20 (risperDAL M-TAB) 3 mg Q12HR PO 11/13/17 21:00 12/01/17 08:25 (Mycostatin Cream) 1 applic Q6HR TOPICAL 11/15/17 18:00 12/01/17 05:08 (Abilify) 5 mg DAILY PO 11/17/17 14:45 12/01/17 08:25 Vancomycin HCl 4000 mg/ Tobramycin Sulfate 2400 mg/ Micafungin Sodium 1000 mg/Sodium Chloride 3,000 ml @ 0 mls/hr 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 11/21/17 07:45 Ceftriaxone Sodium 2000 mg/ Sodium Chloride 100 ml @ 200 mls/hr Q24H IV 11/22/17 15:00 12/01/17 16:40 (Flagyl) 500 mg Q8HR PO 11/25/17 14:00 12/01/17 16:40 (Diflucan) 400 mg DAILY PO 11/26/17 09:00 12/01/17 08:24 (Dilaudid Pf Inj) 0.5 mg Q3H PRN IV PUSH 11/26/17 13:00 12/01/17 17:00 (Percocet 5-325 Mg) 1 tab Q4H PRN PO 11/26/17 13:00 (Percocet 10-325 Mg) 1 tab Q4H PRN PO 11/26/17 13:00 12/01/17 16:53 (Depakene) 500 mg Q8HR PO 11/28/17 14:00 12/01/17 16:40 Lactated Ringer's 1,000 ml @ 100 mls/hr Q10H IV 11/29/17 15:00 11/30/17 20:14 Lactated Ringer's 1,000 ml @ 30 mls/hr Q24H PRN IV 11/30/17 02:15 12/03/17 02:14 12/01/17 07:13 (Xanax) 0.5 mg Q8H PRN PO 11/30/17 22:00 A/P Assessment and Plan Severe sepsis Secondary to thigh abscess. Status post multiple surgeries. Wound VAC in place. Appreciate general surgery, orthopedic surgery and ID recommendations. S /p I&D with skin grafting right thigh 11/30. - Continue antibiotics per infectious disease. - continue wound vac/ wound care per ortho. Acute respiratory failure Resolved. Now on 2 L nasal cannula. CXR shows bibasilar patchy opacities. CXR stable. - oxygen and nebs as needed. Invasive adenocarcinoma of the rectum/ Anemia Patient has received a total of 8 units PRBCs during this hospitalization. Heme positive stools. GI consult appreciated. Mass was noted on colonoscopy. Pathology c/w mod diff invasive adenocarcinoma. - colorectal surgery consult requested. - follow CBC and transfuse as needed. Schizoaffective disorder The pt is endorsing anxiety. - Continue Depakote, risperidone, Abilify. - Alprazolam as needed. Hypokalemia Potassium level 3.3. - Replete and monitor. DVT prophylaxis: TORSTEN Abel. Avoid chemical prophylaxis secondary to multiple surgical procedures. Armando Sauer DO Dec 01, 2017 17:22
[2017-12-01 20:45] VITALS: BP 125/76; PULSE 83; RESP 18; TEMP 99.5; O2SAT 93
[2017-12-02] VITALS: BP 123/80; PULSE 88; RESP 18; TEMP 98.3; O2SAT 90
[2017-12-02] MEDS: HYDROmorphone HCL PF 2 MG/ML VIAL IV PUSH PRN ×5 (01:12→20:22)
[2017-12-02] MEDS: LACTATED RINGER'S 1000 ML INJ 1,000 ML IV SCH ×2 (01:13→23:00)
[2017-12-02] MEDS: CHLORHEXIDINE GLUCONATE 2 % 1 PACK (2 CLOTHS) TOP SCH ×2 (01:13→18:56)
[2017-12-02] MEDS: VALPROIC ACID 250 MG CAP PO SCH ×3 (04:42→21:47)
[2017-12-02] MEDS: metroNIDAZOLE 500 MG TAB PO SCH ×3 (04:42→21:47)
[2017-12-02] MEDS: NYSTATIN 100,000 UNIT/GM CREAM 15 GM TOPICAL SCH ×4 (04:44→23:00)
[2017-12-02] MEDS: oxyCODONE/ACETAMINOPHEN 10 MG/325 MG TAB PO PRN ×4 (04:44→21:47)
[2017-12-02 05:44] LABS: HEMATOCRIT 25.1 % (39.0-51.0); HEMOGLOBIN 8.4 GM/DL (13.0-17.0); MEAN CELL VOLUME 83.5 FL (80.0-100.0); MEAN CORPUSCULAR HGB CONC 33.5 % (32.0-36.0); MEAN PLATELET VOLUME 7.5 FL (7.0-11.0); PLATELET COUNT 362 TH/MM3 (150-450); RED BLOOD COUNT 3.01 MIL/MM3 (4.50-5.90); RED CELL DISTRIBUTION WIDTH 18.6 % (11.6-17.2); WHITE BLOOD COUNT 8.6 TH/MM3 (4.0-11.0)
[2017-12-02 06:02] LABS: BICARBONATE 31.5 MEQ/L (21.0-32.0); CALCIUM 7.8 MG/DL (8.5-10.1); CREATININE 0.64 MG/DL (0.60-1.30); MAGNESIUM 1.7 MG/DL (1.5-2.5)
[2017-12-02 08:00] VITALS: BP 115/73; PULSE 81; RESP 18; TEMP 97.7; O2SAT 93
[2017-12-02] MEDS: CHLORHEXIDINE 0.12% (ORAL KIT) 15 ML CUP MT SCH ×2 (08:00→20:00)
--- NOTE | 2017-12-02 08:06 | PD.ORT.PN ---
Subjective Subjective Remarks POD 3 s/p I&D right thigh with with skin grafting stable. awake and alert. reports he feels good. Objective Vitals Vital Signs Date Time Temp Pulse Resp B/P (MAP) Pulse Ox O2 Delivery O2 Flow Rate FiO2 12/02/17 00:00 98.3 88 18 123/80 (94) 90 12/01/17 23:49 Nasal Cannula 3.00 12/01/17 20:45 99.5 83 18 125/76 (92) 93 12/01/17 20:31 21 12/01/17 16:00 98.3 81 16 135/87 (103) 100 12/01/17 12:00 97.4 80 16 130/89 (103) 94 I/O 12/01/17 12/01/17 12/01/17 12/02/17 12/02/17 12/02/17 07:00 15:00 23:00 07:00 15:00 23:00 Intake Total 3500 ml 830 ml Output Total 4575 ml 5600 ml 6325 ml Balance -4575 ml -2100 ml -5495 ml Intake Oral 2500 ml 830 ml IV Total 1000 ml Output Urine Total 4500 ml 5600 ml 6100 ml Drainage Total 75 ml 225 ml # Bowel Movements 0 1 2 Result Diagram: 12/02/17 0423 12/02/17 0423 Imaging Last 24 hours Impressions Chest X-Ray 11/30/17 0600 Signed Impressions: Service Date/Time: Thursday, November 30, 2017 05:14 - CONCLUSION: No significant change has occurred. Oscar Mcmanus MD Objective Remarks Awake, alert, no acute distress RLE: +vac with good seal. good cap refill distally, moves toes R leg. No tenderness R calf LLE: harvest site clean and dry. xeroform in place. Assessment & Plan Assessment and Plan 1) Right Leg Infection s/p I&D with skin grafting right thigh - POD 3 -vac settings: 125mmHg, low, continuous -maintain vac at all times. do not change dressings to right leg -will maintain vac for 5 days. plan to DC at bedside by [facility] team on Tuesday -do not remove xeroform from harvest site on left leg. ok to change ABDs if saturated but do not remove xeroform. Gigi Rodríguez PA/Nps PA Dec 02, 2017 08:06
[2017-12-02] MEDS: SODIUM CHLORIDE 0.9% FLUSH 10 ML FLUSH IV FLUSH SCH ×2 (09:00→20:23)
[2017-12-02] MEDS: FAMOTIDINE 20 MG/2 ML VIAL IV PUSH SCH ×2 (09:18→20:23)
[2017-12-02] MEDS: ARIPiprazole 5 MG TAB PO SCH (09:18)
[2017-12-02] MEDS: hydrOXYzine HCL 50 MG TAB PO SCH ×2 (09:18→20:24)
[2017-12-02] MEDS: FLUCONAZOLE 200 MG TAB PO SCH (09:18)
[2017-12-02] MEDS: risperiDONE ODT 3 MG TAB PO SCH ×2 (09:21→20:24)
--- NOTE | 2017-12-02 10:44 | HHI.GIFU ---
Subjective Remarks Pt resting in bed in NAD. No GI complaints. Tolerating clears. (Selene Hoskins) Objective Vitals I&O Vital Signs Date Time Temp Pulse Resp B/P (MAP) Pulse Ox O2 Delivery O2 Flow Rate FiO2 12/02/17 08:00 97.7 81 18 115/73 (87) 93 12/02/17 00:00 98.3 88 18 123/80 (94) 90 12/01/17 23:49 Nasal Cannula 3.00 12/01/17 20:45 99.5 83 18 125/76 (92) 93 12/01/17 20:31 21 12/01/17 16:00 98.3 81 16 135/87 (103) 100 12/01/17 12:00 97.4 80 16 130/89 (103) 94 I/O 12/01/17 12/01/17 12/01/17 12/02/17 12/02/17 12/02/17 07:00 15:00 23:00 07:00 15:00 23:00 Intake Total 3500 ml 830 ml Output Total 4575 ml 5600 ml 6325 ml Balance -4575 ml -2100 ml -5495 ml Intake Oral 2500 ml 830 ml IV Total 1000 ml Output Urine Total 4500 ml 5600 ml 6100 ml Drainage Total 75 ml 225 ml # Bowel Movements 0 1 2 Laboratory Laboratory Tests Test 12/02/17 04:23 White Blood Count 8.6 Red Blood Count 3.01 Hemoglobin 8.4 Hematocrit 25.1 Mean Corpuscular Volume 83.5 Mean Corpuscular Hemoglobin 28.0 Mean Corpuscular Hemoglobin Concent 33.5 Red Cell Distribution Width 18.6 Platelet Count 362 Mean Platelet Volume 7.5 Blood Urea Nitrogen 2 Creatinine 0.64 Random Glucose 125 Calcium Level 7.8 Magnesium Level 1.7 Sodium Level 138 Potassium Level 3.2 Chloride Level 99 Carbon Dioxide Level 31.5 Anion Gap 8 Estimat Glomerular Filtration Rate 139 Date/Time Source Procedure Growth Status 11/15/17 10:51 Blood Peripheral Blood Fungal Culture - Preliminary NO GROWTH IN 2 WEEKS Resulted 11/15/17 10:51 Blood Peripheral Blood Fungal Culture - Preliminary NO GROWTH IN 2 WEEKS Resulted 11/16/17 11:57 Fluid Other Fungal Smear - Final NO FUNGAL ELEMENTS SEEN. Resulted 11/16/17 11:57 Fluid Other Fungal Culture - Preliminary NO GROWTH IN 2 WEEKS Resulted 11/28/17 16:30 Stool Stool Stool Occult Blood (ALIN) - Final HEMOCCULT POSITIVE Complete 11/08/17 21:45 Urine Catheterized Urine Urine Culture - Final NO GROWTH IN 48 HOURS. Complete 11/21/17 08:37 Wound Hip Fungal Smear - Final NO FUNGAL ELEMENTS SEEN. Resulted 11/21/17 08:37 Wound Hip Fungal Culture - Preliminary NO GROWTH IN 1 WEEK Resulted Imaging Last Impressions Chest X-Ray 11/30/17 0600 Signed Impressions: Service Date/Time: Thursday, November 30, 2017 05:14 - CONCLUSION: No significant change has occurred. Oscar Mcmanus MD Lower Extremity CT 11/15/17 0000 Signed Impressions: Service Date/Time: Wednesday, November 15, 2017 13:22 - CONCLUSION: Extensive fluid surrounding the quadriceps musculature of the right thigh as well as air within the collection anteriorly and laterally which raises the possibility of abscess/infection. Fluid is also noted extending into the region of the gluteus muscles on the right. Diffuse subcutaneous edema the right thigh is noted. Compartment syndrome should be ruled out. Jez Chowdhury MD Abdomen/Pelvis CT 11/15/17 0000 Signed Impressions: Service Date/Time: Wednesday, November 15, 2017 13:22 - CONCLUSION: The abnormal soft tissue mass now has compartmentalized fluid collections and absence of air in the right soft tissues of thigh and gluteal region. This probably represents improving inflammatory or infectious process such as abscess. Small bilateral pleural effusions persist with a new consolidation with air bronchogram in the left lower lobe. Ascitic fluid suggested in the pelvis Silvio Laguerre MD Lower Extremity Ultrasound 11/08/172011 Signed Impressions: Service Date/Time: Wednesday, November 08, 2017 20:41 - CONCLUSION: 1. Negative for deep venous thrombosis. There are mildly enlarged right inguinal lymph nodes. Bertrand Smalls MD Thoracic Spine MRI 11/08/17 Signed Impressions: Service Date/Time: Wednesday, November 08, 2017 22:01 - CONCLUSION: 1. Small bilateral pleural effusions. 2. No signal abnormalities in the thoracic vertebral bodies and no evidence of focal disc disease. Jace Bird MD Lumbar Spine MRI 11/08/17 0000 Signed Impressions: Service Date/Time: Wednesday, November 08, 2017 22:01 - CONCLUSION: 1. No evidence of lumbar disc disease. 2. Soft tissue abnormality about the right gluteal region suggesting abscess with T2 prolongation and contrast enhancement ; this is incompletely included in the [id number] of the exam. 3. There is also abnormal signal within the marrow of the sacral and coccygeal marrow including contrast enhancement suggesting that the right thigh and gluteal abnormality may extend intraosseous, possibly osteomyelitis. Jace Bird MD Physical Exam HEENT: PERRL; normocephalic; atraumatic; no jaundice. CHEST: CTA CARDIAC: RRR ABDOMEN: Soft, nondistended, nontender; no hepatosplenomegaly; bowel sounds are present in all four quadrants. EXTREMITIES: No clubbing, cyanosis, or edema. SKIN: Normal; no rash; no jaundice. PNEUMATIC DRUM SANDER: alert (Selene Hoskins) Assessment and Plan Plan ASSESSMENT - BRBPR, anemia - anemia likely multifactorial. report of red blood in stool this am. heme pos stool. attempted to call Jennifer Albert [phone] to discuss procedures but was unable to speak with her 12/02/17 s/p colonoscopy found friable fungating mass rectum suspicious for malignancy vs inflammation. CRS consult pending. bx pending CEA elevated 21.6 PLAN - clear liquids - CRS consult pending - oncology consult - GI will sign off, please reconsult if needed pt seen by myself and Dr Maza and this note is written on his behalf (Selene Hoskins) Physician Comments Patient seen and examined Agree with above Continue with current supportive care Monitor labs We will defer further action to the colorectal surgery service We will sign off (Wallace Maza MD) Selene Hoskins Dec 02, 2017 10:44 Wallace Maza MD Dec 02, 2017 19:40
[2017-12-02 12:00] VITALS: BP 130/83; PULSE 82; RESP 16; TEMP 97.6; O2SAT 93
--- NOTE | 2017-12-02 12:02 | HHI.PR ---
Subjective Remarks The patient said that he felt like he was waking up out of anesthesia finally. He was upset that he had cancer. He has not noticed any further rectal bleeding. He requested something for anxiety. Discussed with nursing. Objective Vitals Vital Signs Date Time Temp Pulse Resp B/P (MAP) Pulse Ox O2 Delivery O2 Flow Rate FiO2 12/02/17 08:00 2.00 12/02/17 08:00 97.7 81 18 115/73 (87) 93 12/02/17 00:00 98.3 88 18 123/80 (94) 90 12/01/17 23:49 Nasal Cannula 3.00 12/01/17 20:45 99.5 83 18 125/76 (92) 93 12/01/17 20:31 21 12/01/17 16:00 98.3 81 16 135/87 (103) 100 I/O 12/01/17 12/01/17 12/01/17 12/02/17 12/02/17 12/02/17 06:59 14:59 22:59 06:59 14:59 22:59 Intake Total 2500 ml 1830 ml Output Total 4575 ml 5600 ml 6325 ml Balance -4575 ml -3100 ml -4495 ml Intake Oral 2500 ml 830 ml IV Total 1000 ml Output Urine Total 4500 ml 5600 ml 6100 ml Drainage Total 75 ml 225 ml # Bowel Movements 0 1 2 Result Diagram: 12/02/17 0423 12/02/17 0423 Imaging Last Impressions Chest X-Ray 11/30/17 0600 Signed Impressions: Service Date/Time: Thursday, November 30, 2017 05:14 - CONCLUSION: No significant change has occurred. Oscar Mcmanus MD Lower Extremity CT 11/15/17 0000 Signed Impressions: Service Date/Time: Wednesday, November 15, 2017 13:22 - CONCLUSION: Extensive fluid surrounding the quadriceps musculature of the right thigh as well as air within the collection anteriorly and laterally which raises the possibility of abscess/infection. Fluid is also noted extending into the region of the gluteus muscles on the right. Diffuse subcutaneous edema the right thigh is noted. Compartment syndrome should be ruled out. Jez Chowdhury MD Abdomen/Pelvis CT 11/15/17 0000 Signed Impressions: Service Date/Time: [place], November 15, 2017 13:22 - CONCLUSION: The abnormal soft tissue mass now has compartmentalized fluid collections and absence of air in the right soft tissues of thigh and gluteal region. This probably represents improving inflammatory or infectious process such as abscess. Small bilateral pleural effusions persist with a new consolidation with air bronchogram in the left lower lobe. Ascitic fluid suggested in the pelvis Silvio Laguerre MD Lower Extremity Ultrasound 11/08/172011 Signed Impressions: Service Date/Time: Wednesday, November 08, 2017 20:41 - CONCLUSION: 1. Negative for deep venous thrombosis. There are mildly enlarged right inguinal lymph nodes. Bertrand Smalls MD Thoracic Spine MRI 11/08/17 0000 Signed Impressions: Service Date/Time: Wednesday, November 08, 2017 22:01 - CONCLUSION: 1. Small bilateral pleural effusions. 2. No signal abnormalities in the thoracic vertebral bodies and no evidence of focal disc disease. Jace Bird MD Lumbar Spine MRI 11/08/17 0000 Signed Impressions: Service Date/Time: Wednesday, November 08, 2017 22:01 - CONCLUSION: 1. No evidence of lumbar disc disease. 2. Soft tissue abnormality about the right gluteal region suggesting abscess with T2 prolongation and contrast enhancement ; this is incompletely included in the [id number] of the exam. 3. There is also abnormal signal within the marrow of the sacral and coccygeal marrow including contrast enhancement suggesting that the right thigh and gluteal abnormality may extend intraosseous, possibly osteomyelitis. Jace Bird MD Objective Remarks General: No acute distress. HEENT: NC, AT. Heart: Regular rate and rhythm. No murmur. Lungs: Diminished in both bases. Scattered rhonchi. Breathing is nonlabored. Abdomen: Soft, nontender, nondistended. Extremities: No lower extremity edema. Wound VAC on the right thigh. Neuro: Alert, answers questions appropriately. Psych: Mood and affect appropriate. Procedures 11/09/17 incision and drainage, irrigation and debridement of right hip abscess with placement of VAC dressing 11/11/17 removal of VAC device, irrigation and debridement of right gluteal hip abscess with placement of drain and replacement of VAC 11/16/17 irrigation and debridement of pelvic infection and abscess, irrigation and debridement of right thigh abscess, right knee arthrotomy with irrigation and debridement 11/16/17 incision and drainage, irrigation and debridement of complex lower extremity abscess with removal of subcutaneous tissue, fascia, and muscle, with application of VAC device 11/18/17 irrigation and debridement of right pelvis and hip, irrigation and debridement of right thigh, irrigation and debridement of right knee 11/21/17 irrigation and debridement of right hip, right thigh, and right knee. Application of wound VAC dressing 11/24/17 irrigation and debridement of right hip, right thigh, right knee. Secondary wound closure, application of wound VAC 11/30/17 I&D with skin grafting right thigh 12/01/17 Colonoscopy Medications and IVs Current Medications Medications (Trade) Dose Ordered Sig/Mega Route Start Time Stop Time Status Last Admin (Atarax) 50 mg BID PO 11/09/17 09:00 12/02/17 09:18 (risperDAL) 3 mg DAILY PO 11/09/17 09:00 Future Hold 11/13/17 08:02 (NS Flush) 2 ml UNSCH PRN IV FLUSH 11/08/17 23:15 11/30/17 11:10 (NS Flush) 2 ml BID IV FLUSH 11/09/17 09:00 11/30/17 20:14 (Tylenol) 650 mg Q6H PRN PO 11/08/17 23:15 11/11/17 04:42 (Pepcid Inj) 20 mg Q12HR IV PUSH 11/09/17 09:00 12/02/17 09:18 (Zofran Inj) 4 mg Q6H PRN IV PUSH 11/08/17 23:15 (Restoril) 15 mg HS PRN PO 11/08/17 23:15 11/27/17 00:52 (Duoneb Neb) 1 ampule Q2HR NEB PRN INH 11/08/17 23:15 11/20/17 14:49 Miscellaneous Information 1 Q361D XX 11/08/17 23:15 11/08/17 01:00 (Chlorhexidine 2% Cloth) 3 pack Taper DAILY@04 TOP 11/09/17 04:00 11/05/18 03:59 11/25/17 04:00 (Chlorhexidine 2% Cloth) 3 pack UNSCH PRN TOP 11/08/17 23:15 (Peridex 0.12% Liq) 15 ml BID@08,20 MT 11/09/17 20:00 11/25/17 10:20 (risperDAL M-TAB) 3 mg Q12HR PO 11/13/17 21:00 12/02/17 09:21 (Mycostatin Cream) 1 applic Q6HR TOPICAL 11/15/17 18:00 12/02/17 04:44 (Abilify) 5 mg DAILY PO 11/17/17 14:45 12/02/17 09:18 Vancomycin HCl 4000 mg/ Tobramycin Sulfate 2400 mg/ Micafungin Sodium 1000 mg/Sodium Chloride 3,000 ml @ 0 mls/hr 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 11/21/17 07:45 Ceftriaxone Sodium 2000 mg/ Sodium Chloride 100 ml @ 200 mls/hr Q24H IV 11/22/17 15:00 12/01/17 16:40 (Flagyl) 500 mg Q8HR PO 11/25/17 14:00 12/02/17 04:42 (Diflucan) 400 mg DAILY PO 11/26/17 09:00 12/02/17 09:18 (Dilaudid Pf Inj) 0.5 mg Q3H PRN IV PUSH 11/26/17 13:00 12/02/17 05:50 (Percocet 5-325 Mg) 1 tab Q4H PRN PO 11/26/17 13:00 (Percocet 10-325 Mg) 1 tab Q4H PRN PO 11/26/17 13:00 12/02/17 09:19 (Depakene) 500 mg Q8HR PO 11/28/17 14:00 12/02/17 04:42 Lactated Ringer's 1,000 ml @ 100 mls/hr Q10H IV 11/29/17 15:00 12/01/17 23:08 Lactated Ringer's 1,000 ml @ 30 mls/hr Q24H PRN IV 11/30/17 02:15 12/03/17 02:14 12/01/17 07:13 (Xanax) 0.5 mg Q8H PRN PO 11/30/17 22:00 (KCl) 40 meq Q4H PO 12/02/17 11:00 12/02/17 15:01 A/P Assessment and Plan Severe sepsis Secondary to thigh abscess. Status post multiple surgeries. Wound VAC in place. Appreciate general surgery, orthopedic surgery and ID recommendations. S /p I&D with skin grafting right thigh 11/30. - Continue antibiotics per infectious disease. - continue wound vac/ wound care per ortho. Acute respiratory failure Resolved. Now on 2 L nasal cannula. CXR shows bibasilar patchy opacities. CXR stable. - oxygen and nebs as needed. Invasive adenocarcinoma of the rectum/ Anemia Patient has received a total of 8 units PRBCs during this hospitalization. Heme positive stools. GI consult appreciated. Mass was noted on colonoscopy. Pathology c/w mod diff invasive adenocarcinoma. - colorectal surgery and medical oncology consults requested. - follow CBC and transfuse as needed. Schizoaffective disorder The pt is endorsing anxiety. - Continue Depakote, risperidone, Abilify. - Alprazolam as needed. Hypokalemia Potassium level 3.2. - Replete and monitor. DVT prophylaxis: TORSTEN Abel. Avoid chemical prophylaxis secondary to multiple surgical procedures. Armando Sauer DO Dec 02, 2017 12:02
[2017-12-02] MEDS: POTASSIUM CHLORIDE 20 MEQ CONTROLLED RELEASE TAB PO SCH ×2 (12:52→15:43)
[2017-12-02] MEDS: ALPRAZolam 0.5 MG TAB PO PRN (12:52)
[2017-12-02] MEDS: cefTRIAXone INJ 2,000 MG in SODIUM CHLORIDE 0.9% INJ 100 ML IV SCH (15:43)
[2017-12-02 15:51] VITALS: BP 131/84; PULSE 83; RESP 16; TEMP 97.8; O2SAT 99
[2017-12-02 20:00] VITALS: BP 135/84; PULSE 86; RESP 20; TEMP 97.9; O2SAT 95
--- NOTE | 2017-12-02 22:55 | HHI.PR ---
Subjective Remarks C/R Surg afebrile, VSS javier PO Objective - Vital Signs Date Time Temp Pulse Resp B/P (MAP) Pulse Ox O2 Delivery O2 Flow Rate FiO2 12/02/17 20:15 Room Air 12/02/17 20:00 97.9 86 20 135/84 (101) 95 12/02/17 08:00 2.00 12/01/17 20:31 21 Result Diagram: 12/02/17 0423 12/02/17 042 Objective Remarks PE alert Abd - soft, non-tender A/P Assessment and Plan Imp: lg rectal cancer, perforated plan gentle bowel prep , diverting colostomy on Tuesday Too Torres MD Dec 02, 2017 22:55
[2017-12-03] VITALS (7 sets, daily range): BP systolic 118–135; BP diastolic 71–87; PULSE 81–91; RESP 17–20; TEMP 97.4–100.1; O2SAT 93–100
[2017-12-03] MEDS: HYDROmorphone HCL PF 2 MG/ML VIAL IV PUSH PRN ×3 (02:18→20:59)
[2017-12-03] MEDS: oxyCODONE/ACETAMINOPHEN 10 MG/325 MG TAB PO PRN ×3 (05:46→18:38)
[2017-12-03] MEDS: VALPROIC ACID 250 MG CAP PO SCH ×3 (05:46→21:01)
[2017-12-03] MEDS: metroNIDAZOLE 500 MG TAB PO SCH ×3 (05:46→21:01)
[2017-12-03] MEDS: NYSTATIN 100,000 UNIT/GM CREAM 15 GM TOPICAL SCH ×2 (05:47→12:00)
[2017-12-03] MEDS: CHLORHEXIDINE 0.12% (ORAL KIT) 15 ML CUP MT SCH ×2 (08:00→20:00)
[2017-12-03 08:16] LABS: BICARBONATE 34.5 MEQ/L (21.0-32.0); CALCIUM 8.1 MG/DL (8.5-10.1); CREATININE 0.61 MG/DL (0.60-1.30); MAGNESIUM 1.7 MG/DL (1.5-2.5)
[2017-12-03] MEDS: risperiDONE ODT 3 MG TAB PO SCH ×2 (08:24→21:00)
[2017-12-03] MEDS: ARIPiprazole 5 MG TAB PO SCH (08:25)
[2017-12-03] MEDS: FLUCONAZOLE 200 MG TAB PO SCH (08:25)
[2017-12-03] MEDS: FAMOTIDINE 20 MG/2 ML VIAL IV PUSH SCH ×2 (08:25→21:00)
[2017-12-03] MEDS: hydrOXYzine HCL 50 MG TAB PO SCH ×2 (08:26→21:02)
[2017-12-03] MEDS: SODIUM CHLORIDE 0.9% FLUSH 10 ML FLUSH IV FLUSH SCH ×2 (09:00→21:00)
--- NOTE | 2017-12-03 09:56 | HHI.PR ---
Subjective Remarks Pt without complaint. Drinking excessive amounts of liquids. BMP OK however. Objective Vital Signs Date Time Temp Pulse Resp B/P (MAP) Pulse Ox O2 Delivery O2 Flow Rate FiO2 12/03/17 08:00 98.0 81 17 126/81 (96) 99 12/03/17 00:00 100.1 90 20 118/71 (87) 93 12/02/17 20:15 Room Air 12/02/17 20:00 97.9 86 20 135/84 (101) 95 12/02/17 15:51 97.8 83 16 131/84 (100) 99 12/02/17 12:00 97.6 82 16 130/83 (99) 93 I/O 12/02/17 12/02/17 12/02/17 12/03/17 12/03/17 12/03/17 07:00 15:00 23:00 07:00 15:00 23:00 Intake Total 830 ml 6220 ml 720 ml Output Total 6325 ml 5850 ml 6500 ml Balance -5495 ml 370 ml -5780 ml Intake Oral 830 ml 6120 ml 720 ml IV Total 100 ml Output Urine Total 6100 ml 5850 ml 6500 ml Drainage Total 225 ml # Bowel Movements 2 6 Result Diagram: 12/02/17 0423 12/03/17 0637 Objective Remarks VS-S Abd: soft,non tender Assessment and Plan Assessment and Plan Perforated Rectal Cancer. Stable For Diverting Colostomy on Tuesday. Zen Szymanski MD Dec 03, 2017 09:56
[2017-12-03] MEDS ORDERED: POTASSIUM CHLORIDE 25 MEQ EFFERVESCENT TAB PO ONE (11:15)
--- NOTE | 2017-12-03 11:15 | HHI.PR ---
Subjective Remarks The patient said that he preferred his room to be cold. He was wondering if he could have some anxiety medication. He said his breathing was a lot better. Discussed with nursing. Objective Vitals Vital Signs Date Time Temp Pulse Resp B/P (MAP) Pulse Ox O2 Delivery O2 Flow Rate FiO2 12/03/17 08:00 95 2.00 12/03/17 08:00 98.0 81 17 126/81 (96) 99 12/03/17 00:00 100.1 90 20 118/71 (87) 93 12/02/17 20:15 Room Air 12/02/17 20:00 97.9 86 20 135/84 (101) 95 12/02/17 15:51 97.8 83 16 131/84 (100) 99 12/02/17 12:00 97.6 82 16 130/83 (99) 93 I/O 12/02/17 12/02/17 12/02/17 12/03/17 12/03/17 12/03/17 07:00 15:00 23:00 07:00 15:00 23:00 Intake Total 830 ml 6220 ml 720 ml Output Total 6325 ml 5850 ml 6500 ml Balance -5495 ml 370 ml -5780 ml Intake Oral 830 ml 6120 ml 720 ml IV Total 100 ml Output Urine Total 6100 ml 5850 ml 6500 ml Drainage Total 225 ml # Bowel Movements 2 6 Result Diagram: 12/02/17 0423 12/03/17 0637 Imaging Last Impressions Chest X-Ray 11/30/17 0600 Signed Impressions: Service Date/Time: Thursday, November 30, 2017 05:14 - CONCLUSION: No significant change has occurred. Oscar Mcmanus MD Lower Extremity CT 11/15/17 0000 Signed Impressions: Service Date/Time: Wednesday, November 15, 2017 13:22 - CONCLUSION: Extensive fluid surrounding the quadriceps musculature of the right thigh as well as air within the collection anteriorly and laterally which raises the possibility of abscess/infection. Fluid is also noted extending into the region of the gluteus muscles on the right. Diffuse subcutaneous edema the right thigh is noted. Compartment syndrome should be ruled out. Jez Chowdhury MD Abdomen/Pelvis CT 11/15/17 0000 Signed Impressions: Service Date/Time: Wednesday, November 15, 2017 13:22 - CONCLUSION: The abnormal soft tissue mass now has compartmentalized fluid collections and absence of air in the right soft tissues of thigh and gluteal region. This probably represents improving inflammatory or infectious process such as abscess. Small bilateral pleural effusions persist with a new consolidation with air bronchogram in the left lower lobe. Ascitic fluid suggested in the pelvis Silvio Laguerre MD Lower Extremity Ultrasound 11/08/172011 Signed Impressions: Service Date/Time: Wednesday, November 08, 2017 20:41 - CONCLUSION: 1. Negative for deep venous thrombosis. There are mildly enlarged right inguinal lymph nodes. Bertrand Smalls MD Thoracic Spine MRI 11/08/17 0000 Signed Impressions: Service Date/Time: Wednesday, November 08, 2017 22:01 - CONCLUSION: 1. Small bilateral pleural effusions. 2. No signal abnormalities in the thoracic vertebral bodies and no evidence of focal disc disease. Jace Bidr MD Lumbar Spine MRI 11/08/17 0000 Signed Impressions: Service Date/Time: Wednesday, November 08, 2017 22:01 - CONCLUSION: 1. No evidence of lumbar disc disease. 2. Soft tissue abnormality about the right gluteal region suggesting abscess with T2 prolongation and contrast enhancement ; this is incompletely included in the [id number] of the exam. 3. There is also abnormal signal within the marrow of the sacral and coccygeal marrow including contrast enhancement suggesting that the right thigh and gluteal abnormality may extend intraosseous, possibly osteomyelitis. Jace Bird MD Objective Remarks General: No acute distress. HEENT: NC, AT. Heart: Regular rate and rhythm. No murmur. Lungs: Diminished in both bases. Scattered rhonchi. Breathing is nonlabored. Abdomen: Soft, nontender, nondistended. Extremities: No lower extremity edema. Wound VAC on the right thigh. Neuro: Alert, answers questions appropriately. Psych: Mood and affect appropriate. Procedures 11/09/17 incision and drainage, irrigation and debridement of right hip abscess with placement of VAC dressing 11/11/17 removal of VAC device, irrigation and debridement of right gluteal hip abscess with placement of drain and replacement of VAC 11/16/17 irrigation and debridement of pelvic infection and abscess, irrigation and debridement of right thigh abscess, right knee arthrotomy with irrigation and debridement 11/16/17 incision and drainage, irrigation and debridement of complex lower extremity abscess with removal of subcutaneous tissue, fascia, and muscle, with application of VAC device 11/18/17 irrigation and debridement of right pelvis and hip, irrigation and debridement of right thigh, irrigation and debridement of right knee 11/21/17 irrigation and debridement of right hip, right thigh, and right knee. Application of wound VAC dressing 11/24/17 irrigation and debridement of right hip, right thigh, right knee. Secondary wound closure, application of wound VAC 11/30/17 I&D with skin grafting right thigh 12/01/17 Colonoscopy Medications and IVs Current Medications Medications (Trade) Dose Ordered Sig/Mega Route Start Time Stop Time Status Last Admin (Atarax) 50 mg BID PO 11/09/17 09:00 12/03/17 08:26 (risperDAL) 3 mg DAILY PO 11/09/17 09:00 Future Hold 11/13/17 08:02 (NS Flush) 2 ml UNSCH PRN IV FLUSH 11/08/17 23:15 11/30/17 11:10 (NS Flush) 2 ml BID IV FLUSH 11/09/17 09:00 12/02/17 20:23 (Tylenol) 650 mg Q6H PRN PO 11/08/17 23:15 11/11/17 04:42 (Pepcid Inj) 20 mg Q12HR IV PUSH 11/09/17 09:00 12/03/17 08:25 (Zofran Inj) 4 mg Q6H PRN IV PUSH 11/08/17 23:15 (Restoril) 15 mg HS PRN PO 11/08/17 23:15 11/27/17 00:52 (Duoneb Neb) 1 ampule Q2HR NEB PRN INH 11/08/17 23:15 11/20/17 14:49 Miscellaneous Information 1 Q361D XX 11/08/17 23:15 11/08/17 01:00 (Chlorhexidine 2% Cloth) Taper DAILY@04 TOP 11/09/17 04:00 11/05/18 03:59 11/25/17 04:00 (Chlorhexidine 2% Cloth) 3 pack UNSCH PRN TOP 11/08/17 23:15 (Peridex 0.12% Liq) 15 ml BID@08,20 MT 11/09/17 20:00 11/25/17 10:20 (risperDAL M-TAB) 3 mg Q12HR PO 11/13/17 21:00 12/03/17 08:24 (Mycostatin Cream) 1 applic Q6HR TOPICAL 11/15/17 18:00 12/03/17 05:47 (Abilify) 5 mg DAILY PO 11/17/17 14:45 12/03/17 08:25 Vancomycin HCl 4000 mg/ Tobramycin Sulfate 2400 mg/ Micafungin Sodium 1000 mg/Sodium Chloride 3,000 ml @ 0 mls/hr DU[employer] BILL [employer] IRRIGATION 11/21/17 07:45 Ceftriaxone Sodium 2000 mg/ Sodium Chloride 100 ml @ 200 mls/hr Q24H IV 11/22/17 15:00 12/02/17 15:43 (Flagyl) 500 mg Q8HR PO 11/25/17 14:00 12/03/17 05:46 (Diflucan) 400 mg DAILY PO 11/26/17 09:00 12/03/17 08:25 (Dilaudid Pf Inj) 0.5 mg Q3H PRN IV PUSH 11/26/17 13:00 12/03/17 08:25 (Percocet 5-325 Mg) 1 tab Q4H PRN PO 11/26/17 13:00 (Percocet 10-325 Mg) 1 tab Q4H PRN PO 11/26/17 13:00 12/03/17 05:46 (Depakene) 500 mg Q8HR PO 11/28/17 14:00 12/03/17 05:46 Lactated Ringer's 1,000 ml @ 20 mls/hr Q24H IV 11/29/17 15:00 12/02/17 23:00 (Xanax) 0.5 mg Q8H PRN PO 11/30/17 22:00 12/02/17 12:52 A/P Assessment and Plan Severe sepsis Secondary to thigh abscess. Status post multiple surgeries. Wound VAC in place. Appreciate general surgery, orthopedic surgery and ID recommendations. S /p I&D with skin grafting right thigh 11/30. - Continue antibiotics per infectious disease. - continue wound vac/ wound care per ortho. Acute respiratory failure Resolved. Now on 2 L nasal cannula. CXR shows bibasilar patchy opacities. CXR stable. - oxygen and nebs as needed. Invasive adenocarcinoma of the rectum/ Anemia Patient has received a total of 8 units PRBCs during this hospitalization. Heme positive stools. GI consult appreciated. Mass was noted on colonoscopy. Pathology c/w mod diff invasive adenocarcinoma. Colorectal surgery consult appreciated. - diverting colostomy 12/05 per CRS. - medical and radiation oncology consults pending. - follow CBC and transfuse as needed. Schizoaffective disorder The pt is endorsing anxiety. - Continue Depakote, risperidone, Abilify. - Alprazolam as needed. Hypokalemia Improved. - Replete and monitor. DVT prophylaxis: TORSTEN Abel. Avoid chemical prophylaxis secondary to multiple surgical procedures. Armando Sauer DO Dec 03, 2017 11:15
--- NOTE | 2017-12-03 12:26 | MB ---
cc: HAYDEE RODRIGUEZ RUBY ANNE E. M.D. DATE OF CONSULTATION: 12/02/2017. REASON FOR CONSULTATION / CHIEF COMPLAINT: Selene Perez requested consultation for Mr. Price regarding newly diagnosed colorectal cancer. REFERRING PHYSICIAN: Selene Perez. HISTORY OF PRESENT ILLNESS: Mr. Price is a 41-year-old man with history of schizoaffective, disorder, depression, anxiety. He was under the care of a psychiatrist in [place]. He was receiving monthly injections of long-acting Haldol. He had been receiving injections for over two years, and has had no problems. He presented to the emergency room on November 08, 2017 with sepsis. Ultrasound of the lower extremity showed mildly enlarged right inguinal lymph node. CT scan of the abdomen and pelvis showed abnormal appearance of the soft tissue of the proximal thigh and gluteal region with fluid and gas tracking between the rectus muscle and anterior thigh muscle. He also had a small bilateral pleural effusions. He was referred to general surgery and came under the care of Dr. Bertrand Campos who performed incision and drainage and debridement of the right hip abscess with placement of a VAC dressing. Mr. Price's course has been complicated. He has had repeated surgery for the right hip abscess and VAC dressing placement. He has involved infectious disease and ICU. He has had multiple procedures. Recently in 11/30/2017 he had incision and drainage with skin grafting from the right thigh. Wound VAC is still in place on the right leg. During the course of his hospitalization, he complained of constipation. The constipation pre-dated his hospital admission. He was noted to have a normocytic anemia and heme-positive stools. He has required red cell transfusions. Ultimately a colonoscopy was performed by Dr. Maza on 11/30/2017. The findings shows a friable fungating irregular rectal mass suspicious for malignancy. Biopsy of the rectum shows extensively necrotic invasive moderately differentiated adenocarcinoma. Staging evaluation including a repeat CT scan of the abdomen showed some ascitic fluid in the pelvis. There is a bilateral pleural effusion but no obvious site of distant metastatic disease. His CEA is 21. His albumin is significantly low at 1.2. He is still anemic, normocytic in nature. Iron studies have not been performed. Colorectal surgery has seen the patient. Medical oncology is consulted for consultation. PAST MEDICAL HISTORY: Described above: 1. Right leg abscess. 2. Schizoaffective disorder. 3. Depression. 4. Anxiety. 5. Locally advanced colorectal cancer. 6. Elevated CEA. PAST SURGICAL HISTORY: 1. Multiple irrigations and debridements. 2. Skin grafting. FAMILY HISTORY: Reports the father of lung cancer in his 60s. He was a smoker. The mother is alive and well. SOCIAL HISTORY: He lives with his mother. They moved recently from [place] to the [facility]. He quit smoking as he was admitted to the hospital. He denies any illicit drug use or alcohol use at present. ALLERGIES: 1. DIPHENHYDRAMINE. CURRENT MEDICATIONS: 1. Xanax. 2. Valproic acid. 3. Dilaudid. 4. Percocet PRN. 5. Diflucan. 6. Flagyl. 7. Ceftriaxone. 8. Abilify. 9. Risperdal. 10. Atarax PRN. 11. Pepcid. 12. Acetaminophen. 14. Restoril. PHYSICAL EXAMINATION: VITAL SIGNS: Temperature 97.9, heart rate 86, respiratory rate 20, blood pressure 135/84, saturation 95%. GENERAL: Mr. Price is a cachectic-appearing young man who looks his stated age. HEAD, EYES, EARS, NOSE, THROAT: His pupils are round and reactive to light accommodation. Bitemporal wasting. Oropharynx is clear. NECK: The neck is supple. LUNGS: Clear. CARDIOVASCULAR: Normal rate and rhythm. ABDOMEN: Distended. Some fluid wave. LOWER EXTREMITIES: Asymmetry right leg, more prominent than the left. There is some mild swelling in the right leg. A wound VAC is in place on the right. Dry dressing over the skin grafted site on the left leg is healing well. LABORATORY DATA: Significant for potassium of 3.2, BUN and creatinine are normal, sodium 138, hemoglobin 8.4, platelet count and white blood cell count are normal. Hepatitis serology and HIV are negative. ASSESSMENT AND PLAN: Mr. Price is a 41-year-old man with schizoaffective disorder. He developed a right leg abscess and has required incision and drainage. He presented with sepsis. His course was complicated by a locally advanced colorectal cancer. It appears it was not initially resectable. He has evidence of ascites and pleural effusion. I suspect this is due to the decrease in albumin and his long hospitalization rather than evidence of metastatic disease. Scans do not reveal overt evidence of metastatic disease. I discussed with Mr. Price and his mother over the phone about the treatment of colorectal cancer in general. It appears that the plan is Dr. Torres will do a diverting colostomy. This suggests that he is not initially resectable. We discussed the risks and benefits of chemotherapy and radiation. Additional treatment for rectal cancer with concurrent chemotherapy and radiation with plans to resect the lesion after. Hope of re-anastomosis afterwards. The elevated CEA is concerning for more advanced disease. No lymph node is identified at least in the CT scan images. We will be determine from the planned surgery if there is any evidence of distant metastatic disease in the pelvis. In the meantime, plan for definitive local treatment will be coordinated. We discussed the limitation of being able to give chemotherapy and radiation to someone who has an active infection. This will need to be placed on hold. Furthermore, he will need to heal from the above surgeries. Mr. Price's and his mother's questions were answered to their satisfaction. MD MILA Nelson/TERE /9:18 PM /12:05 PM JOI
--- NOTE | 2017-12-03 12:47 | PD.ONC.PN ---
Subjective Subjective Remarks Tmax 100.1 overnight. Patient resting in room in nad. No complaints. Objective Data Date Time Temp Pulse Resp B/P (MAP) Pulse Ox O2 Delivery O2 Flow Rate FiO2 12/03/17 12:00 97.5 88 17 118/77 (91) 100 12/03/17 08:00 95 2.00 12/03/17 08:00 98.0 81 17 126/81 (96) 99 12/03/17 00:00 100.1 90 20 118/71 (87) 93 12/02/17 20:15 Room Air 12/02/17 20:00 97.9 86 20 135/84 (101) 95 12/02/17 15:51 97.8 83 16 131/84 (100) 99 12/03/17 12/03/17 12/03/17 07:00 15:00 23:00 Intake Total 720 ml Output Total 6500 ml Balance -5780 ml Result Diagram: 12/02/17 0423 12/03/17 0637 Laboratory Results Laboratory Tests Test 12/03/17 06:37 Blood Urea Nitrogen 2 MG/DL Creatinine 0.61 MG/DL Random Glucose 110 MG/DL Calcium Level 8.1 MG/DL Magnesium Level 1.7 MG/DL Sodium Level 138 MEQ/L Potassium Level 3.7 MEQ/L Chloride Level 99 MEQ/L Carbon Dioxide Level 34.5 MEQ/L Anion Gap 5 MEQ/L Estimat Glomerular Filtration Rate 147 ML/MIN Ferritin 539 NG/ML Vitamin B12 Level 1643 PG/ML Administered Medications Medications (Trade) Dose Ordered Sig/Mega Route PRN Reason Start Time Stop Time Status Last Admin Dose Admin Hydroxyzine HCl (Atarax) 50 mg BID PO 11/09/17 09:00 12/03/17 08:26 Risperidone (risperDAL) 3 mg DAILY PO 11/09/17 09:00 Future Hold 11/13/17 08:02 Sodium Chloride (NS Flush) 2 ml UNSCH PRN IV FLUSH FLUSH AFTER USING IV ACCESS 11/08/17 23:15 11/30/17 11:10 Sodium Chloride (NS Flush) 2 ml BID IV FLUSH 11/09/17 09:00 12/02/17 20:23 Acetaminophen (Tylenol) 650 mg Q6H PRN PO PAIN 1-2 AND/OR FEVER >101F 11/08/17 23:15 11/11/17 04:42 Famotidine (Pepcid Inj) 20 mg Q12HR IV PUSH 11/09/17 09:00 12/03/17 08:25 Temazepam (Restoril) 15 mg HS PRN PO INSOMNIA 11/08/17 23:15 11/27/17 00:52 Albuterol/ Ipratropium (Duoneb Neb) 1 ampule Q2HR NEB PRN INH WHEEZING 11/08/17 23:15 11/20/17 14:49 Miscellaneous Information 1 Q361D XX 11/08/17 23:15 11/08/17 01:00 Chlorhexidine Gluconate (Chlorhexidine 2% Cloth) Taper DAILY@04 TOP 11/09/17 04:00 11/05/18 03:59 11/25/17 04:00 Chlorhexidine Gluconate (Peridex 0.12% Liq) 15 ml BID@08,20 MT 11/09/17 20:00 11/25/17 10:20 Risperidone (risperDAL M-TAB) 3 mg Q12HR PO 11/13/17 21:00 12/03/17 08:24 Nystatin (Mycostatin Cream) 1 applic Q6HR TOPICAL 11/15/17 18:00 12/03/17 05:47 Aripiprazole (Abilify) 5 mg DAILY PO 11/17/17 14:45 12/03/17 08:25 Ceftriaxone Sodium 2000 mg/ Sodium Chloride 100 ml @ 200 mls/hr Q24H IV 11/22/17 15:00 12/02/17 15:43 Metronidazole (Flagyl) 500 mg Q8HR PO 11/25/17 14:00 12/03/17 05:46 Fluconazole (Diflucan) 400 mg DAILY PO 11/26/17 09:00 12/03/17 08:25 Hydromorphone HCl (Dilaudid Pf Inj) 0.5 mg Q3H PRN IV PUSH BREAKTHROUGH PAIN 11/26/17 13:00 12/03/17 08:25 Oxycodone/ Acetaminophen (Percocet 10-325 Mg) 1 tab Q4H PRN PO PAIN SCALE 7 TO 10 11/26/17 13:00 12/03/17 05:46 Valproic Acid (Depakene) 500 mg Q8HR PO 11/28/17 14:00 12/03/17 05:46 Lactated Ringer's 1,000 ml @ 20 mls/hr Q24H IV 11/29/17 15:00 12/02/17 23:00 Alprazolam (Xanax) 0.5 mg Q8H PRN PO anxiety 11/30/17 22:00 12/02/17 12:52 Objective Remarks GENERAL: Young man, lying in bed resting in nad. SKIN: Warm and dry. HEAD: Normocephalic. EYES: No injection or drainage. NECK: Supple, trachea midline. CARDIOVASCULAR: Regular rate and rhythm. RESPIRATORY: Breath sounds equal bilaterally. No accessory muscle use. GASTROINTESTINAL: Abdomen soft, non-tender, nondistended. EXTREMITIES: No cyanosis NEUROLOGICAL: awake and alert, normal speech. Assessment/Plan Problem List: (1) Colorectal cancer ICD Codes: C19 - Malignant neoplasm of rectosigmoid junction Plan: --radiation oncology consulted. --diverting colostomy planned --will plan follow up in clinic. Assessment 41y/o male with newly diagnosed colorectal cancer. history of schizoaffective, disorder, depression, anxiety. HPI (brought forward for continuity of care) presented to the emergency room on November 08, 2017 with sepsis. Ultrasound of the lower extremity showed mildly enlarged right inguinal lymph node. CT scan of the abdomen and pelvis showed abnormal appearance of the soft tissue of the proximal thigh and gluteal region with fluid and gas tracking between the rectus muscle and anterior thigh muscle. He also had small bilateral pleural effusions. He was referred to general surgery and came under the care of Dr. Bertrand Campos who performed incision and drainage and debridement of the right hip abscess with placement of a VAC dressing. has had repeated surgery for the right hip abscess and VAC dressing placement. He has involved infectious disease and ICU. He has had multiple procedures. Recently in 11/30/2017 he had incision and drainage with skin grafting from the right thigh. Wound VAC is still in place on the right leg. During the course of his hospitalization, he complained of constipation. The constipation pre-dated his hospital admission. He was noted to have a normocytic anemia and heme-positive stools. He has required red cell transfusions. Ultimately a colonoscopy was performed by Dr. Maza on 2017. The findings showed a friable fungating irregular rectal mass suspicious for malignancy. Biopsy of the rectum showed extensively necrotic invasive moderately differentiated adenocarcinoma. Staging evaluation including a repeat CT scan of the abdomen showed some ascitic fluid in the pelvis. There is a bilateral pleural effusion but no obvious site of distant metastatic disease. Plan 1. will plan for follow up in clinic after patient recovered from diverting colostomy 2. radiation oncology consulted. 3. plan for concurrent chemotherapy and radiation Attending Statement The exam, history, and the medical decision-making described in the above note were completed with the assistance of the mid-level provider. I reviewed and agree with the findings presented. I attest that I had a [id number] encounter with the patient on the same day, and personally performed and documented my assessment and findings in the medical record. No new complaints. Discussed option proposed by , and consideration that perforation of the rectal cancer is etiology of the abscess. Agree with diverting colostomy. Plan afterwards would be local therapy with concurrent chemo and XRT or chemo alone, considering competing needs of a wound and active infection. Timing of these options need to be considered well, not to mention his need to control his psychosis with oral medications. Furthermore, await evaluation to see if there is evidence of metastatic/ ex: omental disease, in which case chemotherapy and treatment are palliative. Continue to follow. Brunilda Nieto Dec 03, 2017 12:46 Jihan Webber MD Dec 03, 2017 13:45
[2017-12-03] MEDS: ALPRAZolam 0.5 MG TAB PO PRN (13:57)
[2017-12-03] MEDS: LACTATED RINGER'S 1000 ML INJ 1,000 ML IV SCH (14:02)
[2017-12-03] MEDS: cefTRIAXone INJ 2,000 MG in SODIUM CHLORIDE 0.9% INJ 100 ML IV SCH (14:03)
[2017-12-04] VITALS: BP 135/79; PULSE 84; RESP 18; TEMP 97.9; O2SAT 96
[2017-12-04] MEDS: oxyCODONE/ACETAMINOPHEN 10 MG/325 MG TAB PO PRN ×5 (02:09→21:57)
[2017-12-04] MEDS: CHLORHEXIDINE GLUCONATE 2 % 1 PACK (2 CLOTHS) TOP SCH (04:00)
[2017-12-04] MEDS: metroNIDAZOLE 500 MG TAB PO SCH ×3 (05:59→21:51)
[2017-12-04] MEDS: VALPROIC ACID 250 MG CAP PO SCH ×3 (05:59→21:50)
[2017-12-04] MEDS: NYSTATIN 100,000 UNIT/GM CREAM 15 GM TOPICAL SCH ×3 (06:00→12:00)
[2017-12-04 08:00] VITALS: BP 133/86; PULSE 91; RESP 17; TEMP 96.2; O2SAT 97
[2017-12-04] MEDS: risperiDONE ODT 3 MG TAB PO SCH ×2 (08:33→21:00)
[2017-12-04] MEDS: FAMOTIDINE 20 MG/2 ML VIAL IV PUSH SCH ×2 (08:33→21:50)
[2017-12-04] MEDS: ARIPiprazole 5 MG TAB PO SCH (08:34)
[2017-12-04] MEDS: FLUCONAZOLE 200 MG TAB PO SCH (08:34)
[2017-12-04] MEDS: hydrOXYzine HCL 50 MG TAB PO SCH ×2 (08:34→21:51)
[2017-12-04] MEDS: LACTATED RINGER'S 1000 ML INJ 1,000 ML IV SCH ×2 (09:00→19:09)
[2017-12-04] MEDS: SODIUM CHLORIDE 0.9% FLUSH 10 ML FLUSH IV FLUSH SCH ×2 (09:00→21:00)
--- NOTE | 2017-12-04 09:37 | HHI.PR ---
Subjective Remarks Pt without complaint. Drinking large amount of CLD. For Colostomy and rectal washout tomorrow. Objective Vital Signs Date Time Temp Pulse Resp B/P (MAP) Pulse Ox O2 Delivery O2 Flow Rate FiO2 12/04/17 08:00 96.2 91 17 133/86 (102) 97 12/04/17 00:00 97.9 84 18 135/79 (97) 96 12/03/17 20:00 98.0 91 18 122/82 (95) 99 12/03/17 19:00 Nasal Cannula 2.00 12/03/17 17:59 100 Nasal Cannula 2.00 12/03/17 16:00 97.4 87 17 135/87 (103) 100 12/03/17 13:30 100 Nasal Cannula 2.00 12/03/17 12:00 97.5 88 17 118/77 (91) 100 I/O 12/03/17 12/03/17 12/03/17 12/04/17 12/04/17 12/04/17 07:00 15:00 23:00 07:00 15:00 23:00 Intake Total 720 ml 3000 ml 720 ml Output Total 6500 ml 6900 ml 7350 ml Balance -5780 ml -3900 ml -6630 ml Intake Oral 720 ml 3000 ml 720 ml Output Urine Total 6500 ml 6900 ml 7350 ml # Bowel Movements 2 3 Result Diagram: 12/02/17 0423 12/03/17 0637 Objective Remarks VS-S Abd: soft,non tender,mild tympany Assessment and Plan Assessment and Plan Perforated Rectal Cancer. Stable For Diverting Colostomy tomorrow. NPO past MN Zen Szymanski MD Dec 04, 2017 09:37
[2017-12-04 10:07] LABS: CALCIUM 8.3 MG/DL (8.5-10.1); CREATININE 0.64 MG/DL (0.60-1.30); MAGNESIUM 1.8 MG/DL (1.5-2.5)
[2017-12-04 11:36] VITALS: O2SAT 97
--- NOTE | 2017-12-04 11:38 | PD.ONC.PN ---
Subjective Subjective Remarks Afebrile overnight. Patient resting in room. "Can you get me another blanket?" Patient states he is cold. He otherwise has no complaints. He denies pain at present. Objective Data Date Time Temp Pulse Resp B/P (MAP) Pulse Ox O2 Delivery O2 Flow Rate FiO2 12/04/17 08:00 96.2 91 17 133/86 (102) 97 12/04/17 00:00 97.9 84 18 135/79 (97) 96 12/03/17 20:00 98.0 91 18 122/82 (95) 99 12/03/17 19:00 Nasal Cannula 2.00 12/03/17 17:59 100 Nasal Cannula 2.00 12/03/17 16:00 97.4 87 17 135/87 (103) 100 12/03/17 13:30 100 Nasal Cannula 2.00 12/03/17 12:00 97.5 88 17 118/77 (91) 100 12/04/17 12/04/17 12/04/17 07:00 15:00 23:00 Intake Total 720 ml Output Total 7350 ml Balance -6630 ml Result Diagram: 12/02/17 0423 12/04/17 0803 Laboratory Results Laboratory Tests Test 12/04/17 08:03 Blood Urea Nitrogen 2 MG/DL Creatinine 0.64 MG/DL Random Glucose 76 MG/DL Calcium Level 8.3 MG/DL Magnesium Level 1.8 MG/DL Sodium Level 140 MEQ/L Potassium Level 3.7 MEQ/L Chloride Level 98 MEQ/L Carbon Dioxide Level 37.0 MEQ/L Anion Gap 5 MEQ/L Estimat Glomerular Filtration Rate 139 ML/MIN Administered Medications Medications (Trade) Dose Ordered Sig/Mega Route PRN Reason Start Time Stop Time Status Last Admin Dose Admin Hydroxyzine HCl (Atarax) 50 mg BID PO 11/09/17 09:00 12/04/17 08:34 Risperidone (risperDAL) 3 mg DAILY PO 11/09/17 09:00 Future Hold 11/13/17 08:02 Sodium Chloride (NS Flush) 2 ml UNSCH PRN IV FLUSH FLUSH AFTER USING IV ACCESS 11/08/17 23:15 11/30/17 11:10 Sodium Chloride (NS Flush) 2 ml BID IV FLUSH 11/09/17 09:00 12/02/17 20:23 Acetaminophen (Tylenol) 650 mg Q6H PRN PO PAIN 1-2 AND/OR FEVER >101F 11/08/17 23:15 11/11/17 04:42 Famotidine (Pepcid Inj) 20 mg Q12HR IV PUSH 11/09/17 09:00 12/04/17 08:33 Temazepam (Restoril) 15 mg HS PRN PO INSOMNIA 11/08/17 23:15 11/27/17 00:52 Albuterol/ Ipratropium (Duoneb Neb) 1 ampule Q2HR NEB PRN INH WHEEZING 11/08/17 23:15 11/20/17 14:49 Miscellaneous Information 1 Q361D XX 11/08/17 23:15 11/08/17 01:00 Chlorhexidine Gluconate (Chlorhexidine 2% Cloth) Taper DAILY@04 TOP 11/09/17 04:00 11/05/18 03:59 11/25/17 04:00 Chlorhexidine Gluconate (Peridex 0.12% Liq) 15 ml BID@08,20 MT 11/09/17 20:00 11/25/17 10:20 Risperidone (risperDAL M-TAB) 3 mg Q12HR PO 11/13/17 21:00 12/04/17 08:33 Nystatin (Mycostatin Cream) 1 applic Q6HR TOPICAL 11/15/17 18:00 12/04/17 06:00 Aripiprazole (Abilify) 5 mg DAILY PO 11/17/17 14:45 12/04/17 08:34 Ceftriaxone Sodium 2000 mg/ Sodium Chloride 100 ml @ 200 mls/hr Q24H IV 11/22/17 15:00 12/03/17 14:03 Metronidazole (Flagyl) 500 mg Q8HR PO 11/25/17 14:00 12/04/17 05:59 Fluconazole (Diflucan) 400 mg DAILY PO 11/26/17 09:00 12/04/17 08:34 Hydromorphone HCl (Dilaudid Pf Inj) 0.5 mg Q3H PRN IV PUSH BREAKTHROUGH PAIN 11/26/17 13:00 12/03/17 20:59 Oxycodone/ Acetaminophen (Percocet 10-325 Mg) 1 tab Q4H PRN PO PAIN SCALE 7 TO 10 11/26/17 13:00 12/04/17 08:33 Valproic Acid (Depakene) 500 mg Q8HR PO 11/28/17 14:00 12/04/17 05:59 Lactated Ringer's 1,000 ml @ 20 mls/hr Q24H IV 11/29/17 15:00 12/03/17 14:02 Alprazolam (Xanax) 0.5 mg Q8H PRN PO anxiety 11/30/17 22:00 12/03/17 13:57 Objective Remarks GENERAL: Young man, lying in bed in nad. SKIN: Warm and dry. HEAD: Normocephalic. EYES: No injection or drainage. NECK: Supple, trachea midline. CARDIOVASCULAR: Regular rate and rhythm. RESPIRATORY: Breath sounds equal bilaterally. No accessory muscle use. GASTROINTESTINAL: Abdomen soft, non-tender, nondistended. EXTREMITIES: No cyanosis. wound vac along right thigh. NEUROLOGICAL: awake and alert, normal speech. Assessment/Plan Problem List: (1) Colorectal cancer ICD Codes: C19 - Malignant neoplasm of rectosigmoid junction Plan: --diverting colostomy planned for Tuesday --will plan follow up in clinic. Assessment 41y/o male with newly diagnosed colorectal cancer. history of schizoaffective, disorder, depression, anxiety. HPI (brought forward for continuity of care) presented to the emergency room on November 08, 2017 with sepsis. Ultrasound of the lower extremity showed mildly enlarged right inguinal lymph node. CT scan of the abdomen and pelvis showed abnormal appearance of the soft tissue of the proximal thigh and gluteal region with fluid and gas tracking between the rectus muscle and anterior thigh muscle. He also had small bilateral pleural effusions. He was referred to general surgery and came under the care of Dr. Bertrand Campos who performed incision and drainage and debridement of the right hip abscess with placement of a VAC dressing. has had repeated surgery for the right hip abscess and VAC dressing placement. He has involved infectious disease and ICU. He has had multiple procedures. Recently in 11/30/2017 he had incision and drainage with skin grafting from the right thigh. Wound VAC is still in place on the right leg. During the course of his hospitalization, he complained of constipation. The constipation pre-dated his hospital admission. He was noted to have a normocytic anemia and heme-positive stools. He has required red cell transfusions. Ultimately a colonoscopy was performed by Dr. Maza on 2017. The findings showed a friable fungating irregular rectal mass suspicious for malignancy. Biopsy of the rectum showed extensively necrotic invasive moderately differentiated adenocarcinoma. Staging evaluation including a repeat CT scan of the abdomen showed some ascitic fluid in the pelvis. There is a bilateral pleural effusion but no obvious site of distant metastatic disease. Plan 1. face sheet faxed to new patient referrals for follow up with Dr. Webber in 2 weeks. 2. continue supportive care. Attending Statement The exam, history, and the medical decision-making described in the above note were completed with the assistance of the mid-level provider. I reviewed and agree with the findings presented. I attest that I had a [id number] encounter with the patient on the same day, and personally performed and documented my assessment and findings in the medical record. Discussed plan for diverting colostomy tomorrow. Pt anxious about another surgery. Discussed plan for treatment for colorectal cancer post surgery. We will follow. Brunilda Nieto Dec 04, 2017 11:38 Jihan Webber MD Dec 04, 2017 23:37
[2017-12-04 12:00] VITALS: BP 126/78; PULSE 96; RESP 17; TEMP 97.2; O2SAT 96
[2017-12-04] MEDS ORDERED: POTASSIUM CHLORIDE 25 MEQ EFFERVESCENT TAB PO ONE (12:15)
--- NOTE | 2017-12-04 12:27 | HHI.PR ---
Subjective Remarks The patient wanted to get off of the bed santamaria. Besides that he had no acute complaints. He said he is as ready as he can be for surgery tomorrow. Discussed with nursing. Objective Vitals Vital Signs Date Time Temp Pulse Resp B/P (MAP) Pulse Ox O2 Delivery O2 Flow Rate FiO2 12/04/17 11:36 97 Nasal Cannula 2.00 12/04/17 08:00 96.2 91 17 133/86 (102) 97 12/04/17 00:00 97.9 84 18 135/79 (97) 96 12/03/17 20:00 98.0 91 18 122/82 (95) 99 12/03/17 19:00 Nasal Cannula 2.00 12/03/17 17:59 100 Nasal Cannula 2.00 12/03/17 16:00 97.4 87 17 135/87 (103) 100 12/03/17 13:30 100 Nasal Cannula 2.00 I/O 12/03/17 12/03/17 12/03/17 12/04/17 12/04/17 12/04/17 07:00 15:00 23:00 07:00 15:00 23:00 Intake Total 720 ml 3000 ml 720 ml Output Total 6500 ml 6900 ml 7350 ml Balance -5780 ml -3900 ml -6630 ml Intake Oral 720 ml 3000 ml 720 ml Output Urine Total 6500 ml 6900 ml 7350 ml # Bowel Movements 2 3 Result Diagram: 12/02/17 0423 12/04/17 0803 Imaging Last Impressions Chest X-Ray 11/30/17 0600 Signed Impressions: Service Date/Time: Thursday, November 30, 2017 05:14 - CONCLUSION: No significant change has occurred. Oscar Mcmanus MD Lower Extremity CT 11/15/17 0000 Signed Impressions: Service Date/Time: Wednesday, November 15, 2017 13:22 - CONCLUSION: Extensive fluid surrounding the quadriceps musculature of the right thigh as well as air within the collection anteriorly and laterally which raises the possibility of abscess/infection. Fluid is also noted extending into the region of the gluteus muscles on the right. Diffuse subcutaneous edema the right thigh is noted. Compartment syndrome should be ruled out. Jez Chowdhury MD Abdomen/Pelvis CT 11/15/17 0000 Signed Impressions: Service Date/Time: Wednesday, November 15, 2017 13:22 - CONCLUSION: The abnormal soft tissue mass now has compartmentalized fluid collections and absence of air in the right soft tissues of thigh and gluteal region. This probably represents improving inflammatory or infectious process such as abscess. Small bilateral pleural effusions persist with a new consolidation with air bronchogram in the left lower lobe. Ascitic fluid suggested in the pelvis Silvio Laguerre MD Lower Extremity Ultrasound 11/08/172011 Signed Impressions: Service Date/Time: Wednesday, November 08, 2017 20:41 - CONCLUSION: 1. Negative for deep venous thrombosis. There are mildly enlarged right inguinal lymph nodes. Bertrand Smalls MD Thoracic Spine MRI 11/08/17 0000 Signed Impressions: Service Date/Time: Wednesday, November 08, 2017 22:01 - CONCLUSION: 1. Small bilateral pleural effusions. 2. No signal abnormalities in the thoracic vertebral bodies and no evidence of focal disc disease. Jace Bird MD Lumbar Spine MRI 11/08/17 0000 Signed Impressions: Service Date/Time: Wednesday, November 08, 2017 22:01 - CONCLUSION: 1. No evidence of lumbar disc disease. 2. Soft tissue abnormality about the right gluteal region suggesting abscess with T2 prolongation and contrast enhancement ; this is incompletely included in the [id number] of the exam. 3. There is also abnormal signal within the marrow of the sacral and coccygeal marrow including contrast enhancement suggesting that the right thigh and gluteal abnormality may extend intraosseous, possibly osteomyelitis. Jace Bird MD Objective Remarks General: No acute distress. HEENT: NC, AT. Heart: Regular rate and rhythm. No murmur. Lungs: Breathing is nonlabored. Abdomen: Soft, nontender, nondistended. Extremities: No lower extremity edema. Wound VAC on the right thigh. Neuro: Alert, answers questions appropriately. Psych: Mood and affect appropriate. Procedures 11/09/17 incision and drainage, irrigation and debridement of right hip abscess with placement of VAC dressing 11/11/17 removal of VAC device, irrigation and debridement of right gluteal hip abscess with placement of drain and replacement of VAC 11/16/17 irrigation and debridement of pelvic infection and abscess, irrigation and debridement of right thigh abscess, right knee arthrotomy with irrigation and debridement 11/16/17 incision and drainage, irrigation and debridement of complex lower extremity abscess with removal of subcutaneous tissue, fascia, and muscle, with application of VAC device 11/18/17 irrigation and debridement of right pelvis and hip, irrigation and debridement of right thigh, irrigation and debridement of right knee 11/21/17 irrigation and debridement of right hip, right thigh, and right knee. Application of wound VAC dressing 11/24/17 irrigation and debridement of right hip, right thigh, right knee. Secondary wound closure, application of wound VAC 11/30/17 I&D with skin grafting right thigh 12/01/17 Colonoscopy Medications and IVs Current Medications Medications (Trade) Dose Ordered Sig/Mega Route Start Time Stop Time Status Last Admin (Atarax) 50 mg BID PO 11/09/17 09:00 12/04/17 08:34 (risperDAL) 3 mg DAILY PO 11/09/17 09:00 Future Hold 11/13/17 08:02 (NS Flush) 2 ml UNSCH PRN IV FLUSH 11/08/17 23:15 11/30/17 11:10 (NS Flush) 2 ml BID IV FLUSH 11/09/17 09:00 12/02/17 20:23 (Tylenol) 650 mg Q6H PRN PO 11/08/17 23:15 11/11/17 04:42 (Pepcid Inj) 20 mg Q12HR IV PUSH 11/09/17 09:00 12/04/17 08:33 (Zofran Inj) 4 mg Q6H PRN IV PUSH 11/08/17 23:15 (Restoril) 15 mg HS PRN PO 11/08/17 23:15 11/27/17 00:52 (Duoneb Neb) 1 ampule Q2HR NEB PRN INH 11/08/17 23:15 11/20/17 14:49 Miscellaneous Information 1 Q361D XX 11/08/17 23:15 11/08/17 01:00 (Chlorhexidine 2% Cloth) Taper DAILY@04 TOP 11/09/17 04:00 11/05/18 03:59 11/25/17 04:00 (Chlorhexidine 2% Cloth) 3 pack UNSCH PRN TOP 11/08/17 23:15 (Peridex 0.12% Liq) 15 ml BID@08,20 MT 11/09/17 20:00 11/25/17 10:20 (risperDAL M-TAB) 3 mg Q12HR PO 11/13/17 21:00 12/04/17 08:33 (Mycostatin Cream) 1 applic Q6HR TOPICAL 11/15/17 18:00 12/04/17 06:00 (Abilify) 5 mg DAILY PO 11/17/17 14:45 12/04/17 08:34 Vancomycin HCl 4000 mg/ Tobramycin Sulfate 2400 mg/ Micafungin Sodium 1000 mg/Sodium Chloride 3,000 ml @ 0 mls/hr SSIS ETL DEVELOPER IRRIGATION 11/21/17 07:45 Ceftriaxone Sodium 2000 mg/ Sodium Chloride 100 ml @ 200 mls/hr Q24H IV 11/22/17 15:00 12/03/17 14:03 (Flagyl) 500 mg Q8HR PO 11/25/17 14:00 12/04/17 05:59 (Diflucan) 400 mg DAILY PO 11/26/17 09:00 12/04/17 08:34 (Dilaudid Pf Inj) 0.5 mg Q3H PRN IV PUSH 11/26/17 13:00 12/03/17 20:59 (Percocet 5-325 Mg) 1 tab Q4H PRN PO 11/26/17 13:00 (Percocet 10-325 Mg) 1 tab Q4H PRN PO 11/26/17 13:00 12/04/17 08:33 (Depakene) 500 mg Q8HR PO 11/28/17 14:00 12/04/17 05:59 Lactated Ringer's 1,000 ml @ 20 mls/hr Q24H IV 11/29/17 15:00 12/03/17 14:02 (Xanax) 0.5 mg Q8H PRN PO 11/30/17 22:00 12/03/17 13:57 A/P Assessment and Plan Severe sepsis Secondary to thigh abscess. Status post multiple surgeries. Wound VAC in place. Appreciate general surgery, orthopedic surgery and ID recommendations. S /p I&D with skin grafting right thigh 11/30. - Continue antibiotics per infectious disease. - continue wound vac/ wound care per ortho. Acute respiratory failure Resolved. Now on 2 L nasal cannula. CXR shows bibasilar patchy opacities. CXR stable. - oxygen and nebs as needed. Invasive adenocarcinoma of the rectum/ Anemia Patient has received a total of 8 units PRBCs during this hospitalization. Heme positive stools. GI consult appreciated. Mass was noted on colonoscopy. Pathology c/w mod diff invasive adenocarcinoma. Colorectal surgery and oncology consults appreciated. - diverting colostomy 12/05 per CRS. - radiation oncology consult pending. - follow CBC and transfuse as needed. Schizoaffective disorder The pt is endorsing anxiety. - Continue Depakote, risperidone, Abilify. - Alprazolam as needed. Hypokalemia Improved. - Replete and monitor. DVT prophylaxis: TORSTEN Abel. Avoid chemical prophylaxis secondary to multiple surgical procedures. Armando Sauer DO Dec 04, 2017 12:27
[2017-12-04] MEDS: ALPRAZolam 0.5 MG TAB PO PRN (13:22)
[2017-12-04 16:00] VITALS: BP 123/79; PULSE 87; RESP 17; TEMP 97.6; O2SAT 98
[2017-12-04] MEDS: ALBUMIN 25% INJ 100 ML IV SCH (18:12)
[2017-12-04] MEDS: cefTRIAXone INJ 2,000 MG in SODIUM CHLORIDE 0.9% INJ 100 ML IV SCH (18:12)
[2017-12-04] MEDS: CHLORHEXIDINE 0.12% (ORAL KIT) 15 ML CUP MT SCH (19:12)
[2017-12-04 20:00] VITALS: BP 118/74; PULSE 89; RESP 20; TEMP 97.4; O2SAT 96
[2017-12-05] VITALS: BP 119/73; PULSE 88; RESP 20; TEMP 99.2; O2SAT 96
[2017-12-05] MEDS: CHLORHEXIDINE GLUCONATE 2 % 1 PACK (2 CLOTHS) TOP SCH (03:49)
[2017-12-05] MEDS: metroNIDAZOLE 500 MG TAB PO SCH ×3 (05:31→21:13)
[2017-12-05] MEDS: VALPROIC ACID 250 MG CAP PO SCH ×3 (05:32→21:13)
[2017-12-05] MEDS: ALBUMIN 25% INJ 100 ML IV SCH ×2 (05:32→17:00)
[2017-12-05] MEDS: NYSTATIN 100,000 UNIT/GM CREAM 15 GM TOPICAL SCH ×4 (06:00→18:00)
--- NOTE | 2017-12-05 06:38 | PD.ORT.PN ---
Subjective Subjective Remarks POD 6 s/p I&D right thigh with with skin grafting stable. awake and alert. reports he feels good. Objective Vitals Vital Signs Date Time Temp Pulse Resp B/P (MAP) Pulse Ox O2 Delivery O2 Flow Rate FiO2 12/05/17 00:00 99.2 88 20 119/73 (88) 96 12/04/17 20:00 Room Air 12/04/17 20:00 97.4 89 20 118/74 (89) 96 12/04/17 16:00 97.6 87 17 123/79 (94) 98 12/04/17 12:00 97.2 96 17 126/78 (94) 96 12/04/17 11:36 97 Nasal Cannula 2.00 12/04/17 08:00 96.2 91 17 133/86 (102) 97 I/O 12/04/17 12/04/17 12/04/17 12/05/17 12/05/17 12/05/17 07:00 15:00 23:00 07:00 15:00 23:00 Intake Total 720 ml 4125 ml 480 ml Output Total 7350 ml 5625 ml 6900 ml Balance -6630 ml -1500 ml -6420 ml Intake Oral 720 ml 3025 ml 480 ml IV Total 1100 ml Output Urine Total 7350 ml 5625 ml 6900 ml # Bowel Movements 3 1 3 Result Diagram: 12/02/17 0423 12/04/17 0803 Imaging Last 24 hours Impressions Chest X-Ray 11/30/17 0600 Signed Impressions: Service Date/Time: Thursday, November 30, 2017 05:14 - CONCLUSION: No significant change has occurred. Oscar Mcmanus MD Objective Remarks Awake, alert, no acute distress RLE: +vac with good seal. good cap refill distally, moves toes R leg. No tenderness R calf. vac removed. graft visualized. healing. well. LLE: harvest site clean and dry. xeroform in place. Assessment & Plan Assessment and Plan 1) Right Leg Infection s/p I&D with skin grafting right thigh - POD 6 -vac removed. transition to daily dressing changes of right leg with xeroform /4x4/BARRY -do not remove xeroform from harvest site on left leg. ok to change ABDs if saturated but do not remove xeroform. Gigi Rodríguez/Resp Ther PA Dec 05, 2017 06:38
[2017-12-05] MEDS ORDERED: CHLORHEXIDINE GLUCONATE 2 % 1 PACK (2 CLOTHS) TOPICAL PRN (07:00)
[2017-12-05] MEDS ORDERED: METOPROLOL TARTRATE 25 MG TAB PO PRN (07:00)
[2017-12-05] MEDS ORDERED: INSULIN HUMAN REGULAR 1,000 UNITS/10 ML VIAL SQ PRN (07:00)
[2017-12-05] MEDS ORDERED: SODIUM CHLORID 0.9% 500 ML IV PRN (07:00)
[2017-12-05] MEDS ORDERED: POVIDONE IODINE 5% (ANTISEPSIS KIT) 4 APPLICATIONS EACH NARE PRN (07:00)
[2017-12-05] MEDS ORDERED: LACTATED RINGER'S 1000 ML IV PRN (07:00)
[2017-12-05 08:00] VITALS: BP 121/76; PULSE 78; RESP 18; TEMP 97.9; O2SAT 97
[2017-12-05] MEDS: CHLORHEXIDINE 0.12% (ORAL KIT) 15 ML CUP MT SCH ×2 (08:00→20:00)
--- NOTE | 2017-12-05 08:38 | MB ---
cc: KIEL ALARCON M.D. DATE OF CONSULTATION: 12/01/2017. REASON FOR CONSULTATION: Perforated rectal cancer. HISTORY OF PRESENT ILLNESS Mr. Price is an unfortunate 41-year-old male with psychiatric problems who initially presented back in May of 2017 to the emergency room complaining of rectal pain and tenesmus type symptoms. He was referred for GI evaluation which was somewhat delayed due to multiple factors. The patient was recently admitted to [place] several weeks ago with acute abscess and inflammation of the right thigh and gluteus muscle extending down his leg. The patient has been taken care of by general surgery and orthopedics as well as infectious disease for multiple debridements, wound VAC and recently skin grafts to the operated area. From reports in the chart, the infection has responded to treatment and the skin grafts apparently have taken. The patient was noted by nursing staff to have blood in the stool and testing revealed a heme-positive stool. The patient was taken to the GI lab recently and Dr. Maza performed a colonoscopy, which revealed a rather large cancer of his distal rectum. Biopsies of the tumor have shown adenocarcinoma. The patient does complain of some small stools and some urgency. His mother says he did have diarrhea. Denies any nausea, vomiting but has had abdominal discomfort at times. Appetite has been poor and his weight has fallen he thinks but an unknown amount. Please see history and physical and multiple consultants for more complete past medical and surgical history. PHYSICAL EXAMINATION: GENERAL: This is a very pleasant young male with obvious attention disorder. HEAD, EYES, EARS, NOSE, THROAT: Remarkable for somewhat pale dry membranes, nonicteric sclera. NECK: Neck was supple without gross adenopathy. CHEST: Diminished in the bases clear anteriorly. HEART: Heart had a regular rhythm. ABDOMEN: Abdomen was soft and flat, not really distended. Bowel sounds were normal. No rebound or guarding or masses noted. RECTAL: Anal inspection revealed benign external canal. Digital exam was not done due to tenderness and recent colonoscopy. EXTREMITIES: No cyanosis or clubbing. 1 to 2+ pedal edema with an open wound and a wound VAC placed on his right thigh wound. LABORATORY FINDINGS: All reviewed including his two CT scans showing a rather large rectal cancer. IMPRESSION: Large rectal cancer with obvious perforation and involvement of the ischiorectal space and right buttock and thigh muscles in the fascial planes. The patient has had successful drainage of the leg abscess and appears to be progressing well. He has only been maintained on a liquid diet, however and has not had any solid stool. After reviewing the CT scans, it would be most appropriate at this point to divert the fecal stream with a vigorous distal washout to hopefully contain the continued soiling of the perirectal tissues due to the perforation of the tumor. Oncology and radiation therapy will be consulted for possible consideration of adjuvant treatment to shrink the tumor of the perhaps to plan on some definitive resection later in the year if he does respond to medical treatment appropriately. Discussed at great length with the patient and his mother and will try to set up a diverting colostomy and distal washout as soon as possible. MD KETTY Diego/TERE /11:40 PM /8:33 AM
[2017-12-05] MEDS: hydrOXYzine HCL 50 MG TAB PO SCH ×2 (08:49→21:12)
[2017-12-05] MEDS: ARIPiprazole 5 MG TAB PO SCH (08:49)
[2017-12-05] MEDS: FLUCONAZOLE 200 MG TAB PO SCH (08:49)
[2017-12-05] MEDS: risperiDONE ODT 3 MG TAB PO SCH ×2 (08:50→21:13)
[2017-12-05] MEDS: FAMOTIDINE 20 MG/2 ML VIAL IV PUSH SCH ×2 (08:50→21:11)
[2017-12-05] MEDS: SODIUM CHLORIDE 0.9% FLUSH 10 ML FLUSH IV FLUSH SCH ×2 (08:51→21:12)
[2017-12-05 12:00] VITALS: BP 123/74; PULSE 71; RESP 18; TEMP 96.1; O2SAT 98
[2017-12-05] MEDS ORDERED: LIDOCAINE HCL 1% PF 5 ML SYRINGE OTHER ONE (12:00)
[2017-12-05] MEDS ORDERED: PROPOFOL 200 MG/20 ML AMP IV ONE (12:00)
[2017-12-05] MEDS ORDERED: ONDANSETRON HCL 4 MG/2 ML VIAL IV ONE (12:00)
[2017-12-05] MEDS ORDERED: DEXAMETHASONE SOD PHOS 4 MG/ML VIAL IV ONE (12:00)
[2017-12-05] MEDS ORDERED: PHENYLEPH/NS 1000 MCG/10 ML SYR IV ONE (12:00)
[2017-12-05] MEDS ORDERED: NEOSTIGMINE 5 MG/5 ML SYRINGE IV PUSH ONE (12:00)
[2017-12-05] MEDS ORDERED: GLYCOPYRROLATE 1 MG/5 ML SYRINGE IV PUSH ONE (12:00)
[2017-12-05] MEDS ORDERED: ROCURONIUM INJ 50 MG/5 ML SYRINGE IV PUSH ONE (12:00)
[2017-12-05] MEDS ORDERED: LACTATED RINGER'S 1000 ML INJ 1,000 ML IV ONE (12:00)
[2017-12-05] MEDS: oxyCODONE/ACETAMINOPHEN 10 MG/325 MG TAB PO PRN (12:09)
[2017-12-05] MEDS: ALPRAZolam 0.5 MG TAB PO PRN (12:09)
[2017-12-05] MEDS: HYDROmorphone HCL PF 2 MG/ML VIAL IV PUSH PRN ×2 (12:54→21:11)
--- NOTE | 2017-12-05 13:02 | MB ---
cc: ANN DENTON ALVARO MD DEVERAS, RUBY ANNE E. M.D. DATE OF CONSULTATION: 12/04/2017 DATE OF : 1975. REFERR[address]YSICIAN Dr[address] Too Torres. DIAGNOSIS Locally advanced rectal carcinoma. Stage: At least a [id number], stage grouping IIA. CHIEF COMPLAINT Rupture rectal mass. REASON FOR VISIT The patient being evaluated for possible adjuvant radiotherapy treatment options for rectal carcinoma. HISTORY OF PRESENT ILLNESS This is a 41-year-old white male with a history of schizophrenia, that according to the records the patient was having Haldol injections in [place]. They recently moved to this area in [place]. It appears that the patient has been experiencing pain in the right thigh which has developed into an abscess. As part of the workup the patient was noted also to have positive blood stools and further workup had detected a mass within the rectum. He had a colonoscopy and biopsies were taken which are positive for rectal carcinoma. It appears that the patient has a perforated mass and he is awaiting to have a diverting colostomy tomorrow. The patient is able to give some information but not much. He states that he has been constipated now for several months. I asked him if he had seen a decrease in the caliber of stools, he said yes. I asked him if he had seen some blood in the stools and he said yes but he cannot quite point when all this started. When I asked, the patient has some discomfort in the right thigh today. The patient has had several surgical procedures for an abscess on the right thigh. I have been consulted for possible neoadjuvant concomitant radiation therapy for rectal carcinoma. PAST MEDICAL HISTORY As above, also: 1. History of depression. 2. Anxiety. 3. Skin grafting. 4. Debridement of the right thigh. MEDICATIONS 1. Xanax. 2. Valproic acid. 3. Dilaudid. 4. Percocet. 5. Diflucan. 6. Flagyl. 7. Ceftriaxone. 8. Abilify. 9. Risperdal. 10. Atarax. 11. Pepcid. 12. Acetaminophen. 13. Restoril. ALLERGIES DIPHENHYDRAMINE. FAMILY HISTORY Father with lung carcinoma. SOCIAL HISTORY The patient denies any major ETOH intake. Admits to smoking. REVIEW OF SYSTEMS CONSTITUTIONAL: The patient denies any major decrease or loss of appetite or decrease of weight. ALLERGIES: The patient has not had a major allergic reaction recently. EYES: Unremarkable. ENT: Unremarkable. NECK: Unremarkable. INTEGUMENTARY: Unremarkable. CARDIOVASCULAR: The patient denies any chest pain, no signs or symptoms of MD. RESPIRATORY: No wheezing or hemoptysis. GASTROINTESTINAL: The patient admits to constipation, rectal bleeding, decrease in caliber of stools. Denies any pelvic pain. Most of the pain is in the right thigh. GENITOURINARY: Unremarkable. MUSCULOSKELETAL: Pain in the right thigh. NEUROLOGIC: The patient denies any decrease in cognitive functions or motor functions. PSYCHIATRIC: Depression, anxiety, schizophrenia. ENDOCRINE: Unremarkable. HEMATOLOGIC: Unremarkable. DERMATOLOGIC: Unremarkable. PHYSICAL EXAMINATION GENERAL: The patient is oriented x3, in no major acute distress or discomfort at time of evaluation. VITAL SIGNS: Temperature 96.2, pulse 91, blood pressure 133/86, pulse ox 97% on room air. LUNGS: Lungs were clear to auscultation with appropriate ventilatory respiratory effort. HEART: Heart was regular rate and rhythm without murmurs. NECK: Palpation of neck and bilateral supraclavicular areas reveals no lymph nodes. ABDOMEN: Palpation of abdominal cavity, there is no hepatosplenomegaly. No pain elicited. No periumbilical lymph nodes. NODES: No lymph nodes bilaterally in the inguinal areas. EXTREMITIES: No lower extremity edema detected bilaterally. NEUROLOGIC: No neurological deficit detected. Cognitive function appears to be preserved. SKIN: No rash. RADIOLOGY MRI thoracic spine 11/08/2017 reviewed. Lumbar spine MRI 11/08/[address] reviewed. Abdomen and pelvis CT 11/08/2017. Impression. Normal appearance of the soft tissue to the proximal thigh and distal region with fluid and gas tracking between the rectus muscles and anterior thigh muscles. No focal abnormal areas of enhancement. The combination of fluid and gas suggests either an infectious or necrotic process. Nonobstructing small calcified stone on the left kidney and multiple left renal cysts. Small bilateral pleural effusions. Addendum: Not mentioned above is the prominence of the rectum AP dimension of the rectum measuring 8 cm which is a possible mass. There is inhomogeneous density of the wall, the actual thickness of the wall cannot be assessed due to absence of intraluminal contrast. No distension of the proximal colon with normal diameter from the cecum to the proximal sigmoid. The CT has been independently reviewed by me. Abdomen and pelvis CT 11/15/2017. IMPRESSION: Abnormal soft tissue mass now has compartmentalized fluid collections and absence of air in the right soft tissues of thigh and gluteal region. This is probably improving inflammatory or infectious process. Small bilateral pleural effusions persist with a new consolidation with air bronchogram on the lower lobe. Ascitic fluid suggested in the pelvis. SURGICAL PATHOLOGY 11/30/2017. IMPRESSION: Rectal biopsy consistent with necrotic invasive moderately differentiated adenocarcinoma. ASSESSMENT 41-year-old white male with the diagnosis of locally advanced rectal carcinoma. The patient is being evaluated for possible radiotherapy treatment options. PLAN I had an extensive discussion with the patient in regards to his present disease and condition. I have reviewed Dr. Webber' note from 12/03/2017 which she recommends concomitant chemoradiation therapy, once the patient heals from all his surgeries and wounds. I advised the patient the merits of radiation in a preoperative manner. I advised him of the side effects and complications of the treatments to include but not limited to weakness and fatigue, decreased blood counts, edema of skin, necrosis of skin, nausea and vomiting, diarrhea, pelvic pain, rectal and bladder damage, bladder and rectal perforation, which lead to bleeding and , bladder and rectal incontinence, rectal and bladder bleeding. We also discussed bone damage and fracture, loss of hair in the pelvic area which could be permanent, hemorrhoidal flare-up, swelling of the lower extremities, impotence, nerve damage. After thorough discussion he understood everything that was explained. I will discuss this with his mother as well. I left two of my business cards so she can call me. I will have the patient return to the office in about 2 weeks to see where he stands following surgery and how he is recovering from all his surgeries. I concur with Dr. Webber that everything needs to be healed before any radiation therapy can be started, otherwise radiation will prevent the healing and then will become a problem. Also, infection will need to be resolved. The patient was advised if I could be of any further assistance to please let me know, otherwise will proceed as above. Dr. Torres, thank you for the referral of this patient and allowing me to participate in his care. Should you have any further questions or concerns, please do not hesitate to contact me. ADDENDUM: 12/14/17, I have discussed this case with Dr. Torres and he is concerned that if we wait to long the patient will continue to progress. I have also discussed this case with Dr. Webber and she is going to start the patient on oral xeloda in the mean time until we are able to fully start chemo/xrt. She has discussed the case with infectious disease and they want us to wait for infection to be controlled before combined treatments start. I have evaluated the surgical scar of the patient and he was simulated on 12/09/17, the scar is on entrance ports of the radiation and they can not be avoided in order to provide an adequate tx plan for this patient. The scars were still healing. I will continue to follow the patient closely to determine proper time to start. The case and treatment options were discussed with the patient's mother, as well as the merits and side effects of treatment and she was willing and in agreement with treatment plan. MD ADDY Kiser/ALEJANDRO /11:13 AM /11:56 AM JOI
--- NOTE | 2017-12-05 13:12 | HHI.PR ---
Subjective Remarks The patient was to go for diverting colostomy today. He said that his anxiety level was controlled. He had no acute complaints. Discussed with nursing, infectious disease and oncology. Objective Vitals Vital Signs Date Time Temp Pulse Resp B/P (MAP) Pulse Ox O2 Delivery O2 Flow Rate FiO2 12/05/17 12:00 96.1 71 18 123/74 (90) 98 12/05/17 08:50 97 Room Air 12/05/17 08:00 97.9 78 18 121/76 (91) 97 12/05/17 00:00 99.2 88 20 119/73 (88) 96 12/04/17 20:00 Room Air 12/04/17 20:00 97.4 89 20 118/74 (89) 96 12/04/17 16:00 97.6 87 17 123/79 (94) 98 I/O 12/04/17 12/04/17 12/04/17 12/05/17 12/05/17 12/05/17 07:00 15:00 23:00 07:00 15:00 23:00 Intake Total 720 ml 4125 ml 480 ml Output Total 7350 ml 5625 ml 6900 ml Balance -6630 ml -1500 ml -6420 ml Intake Oral 720 ml 3025 ml 480 ml IV Total 1100 ml Output Urine Total 7350 ml 5625 ml 6900 ml # Bowel Movements 3 1 3 Result Diagram: 12/02/17 0423 12/04/17 0803 Imaging Last Impressions Chest X-Ray 11/30/17 0600 Signed Impressions: Service Date/Time: Thursday, November 30, 2017 05:14 - CONCLUSION: No significant change has occurred. Oscar Mcmanus MD Lower Extremity CT 11/15/17 0000 Signed Impressions: Service Date/Time: Wednesday, November 15, 2017 13:22 - CONCLUSION: Extensive fluid surrounding the quadriceps musculature of the right thigh as well as air within the collection anteriorly and laterally which raises the possibility of abscess/infection. Fluid is also noted extending into the region of the gluteus muscles on the right. Diffuse subcutaneous edema the right thigh is noted. Compartment syndrome should be ruled out. Jez Chowdhury MD Abdomen/Pelvis CT 11/15/17 0000 Signed Impressions: Service Date/Time: Wednesday, November 15, 2017 13:22 - CONCLUSION: The abnormal soft tissue mass now has compartmentalized fluid collections and absence of air in the right soft tissues of thigh and gluteal region. This probably represents improving inflammatory or infectious process such as abscess. Small bilateral pleural effusions persist with a new consolidation with air bronchogram in the left lower lobe. Ascitic fluid suggested in the pelvis Silvio Laguerre MD Lower Extremity Ultrasound 11/08/172011 Signed Impressions: Service Date/Time: Wednesday, November 08, 2017 20:41 - CONCLUSION: 1. Negative for deep venous thrombosis. There are mildly enlarged right inguinal lymph nodes. Bertrand Smalls MD Thoracic Spine MRI 11/08/17 0000 Signed Impressions: Service Date/Time: Wednesday, November 08, 2017 22:01 - CONCLUSION: 1. Small bilateral pleural effusions. 2. No signal abnormalities in the thoracic vertebral bodies and no evidence of focal disc disease. Jace Bird MD Lumbar Spine MRI 11/08/17 0000 Signed Impressions: Service Date/Time: Wednesday, November 08, 2017 22:01 - CONCLUSION: 1. No evidence of lumbar disc disease. 2. Soft tissue abnormality about the right gluteal region suggesting abscess with T2 prolongation and contrast enhancement ; this is incompletely included in the [id number] of the exam. 3. There is also abnormal signal within the marrow of the sacral and coccygeal marrow including contrast enhancement suggesting that the right thigh and gluteal abnormality may extend intraosseous, possibly osteomyelitis. Jace Bird MD Objective Remarks General: No acute distress. HEENT: NC, AT. Heart: Regular rate and rhythm. No murmur. Lungs: Breathing is nonlabored. Abdomen: Soft, nontender, nondistended. Extremities: No lower extremity edema. Wound VAC on the right thigh. Neuro: Alert, answers questions appropriately. Psych: Mood and affect appropriate. Procedures 11/09/17 incision and drainage, irrigation and debridement of right hip abscess with placement of VAC dressing 11/11/17 removal of VAC device, irrigation and debridement of right gluteal hip abscess with placement of drain and replacement of VAC 11/16/17 irrigation and debridement of pelvic infection and abscess, irrigation and debridement of right thigh abscess, right knee arthrotomy with irrigation and debridement 11/16/17 incision and drainage, irrigation and debridement of complex lower extremity abscess with removal of subcutaneous tissue, fascia, and muscle, with application of VAC device 11/18/17 irrigation and debridement of right pelvis and hip, irrigation and debridement of right thigh, irrigation and debridement of right knee 11/21/17 irrigation and debridement of right hip, right thigh, and right knee. Application of wound VAC dressing 11/24/17 irrigation and debridement of right hip, right thigh, right knee. Secondary wound closure, application of wound VAC 11/30/17 I&D with skin grafting right thigh 12/01/17 Colonoscopy Medications and IVs Current Medications Medications (Trade) Dose Ordered Sig/Mega Route Start Time Stop Time Status Last Admin (Atarax) 50 mg BID PO 11/09/17 09:00 12/05/17 08:49 (risperDAL) 3 mg DAILY PO 11/09/17 09:00 Future Hold 11/13/17 08:02 (NS Flush) 2 ml UNSCH PRN IV FLUSH 11/08/17 23:15 11/30/17 11:10 (NS Flush) 2 ml BID IV FLUSH 11/09/17 09:00 12/05/17 08:51 (Tylenol) 650 mg Q6H PRN PO 11/08/17 23:15 11/11/17 04:42 (Pepcid Inj) 20 mg Q12HR IV PUSH 11/09/17 09:00 12/05/17 08:50 (Zofran Inj) 4 mg Q6H PRN IV PUSH 11/08/17 23:15 (Restoril) 15 mg HS PRN PO 11/08/17 23:15 11/27/17 00:52 (Duoneb Neb) 1 ampule Q2HR NEB PRN INH 11/08/17 23:15 11/20/17 14:49 Miscellaneous Information 1 Q361D XX 11/08/17 23:15 11/08/17 01:00 (Chlorhexidine 2% Cloth) Taper DAILY@04 TOP 11/09/17 04:00 11/05/18 03:59 11/25/17 04:00 (Chlorhexidine 2% Cloth) 3 pack UNSCH PRN TOP 11/08/17 23:15 (Peridex 0.12% Liq) 15 ml BID@08,20 MT 11/09/17 20:00 12/05/17 08:00 (risperDAL M-TAB) 3 mg Q12HR PO 11/13/17 21:00 12/05/17 08:50 (Mycostatin Cream) 1 applic Q6HR TOPICAL 11/15/17 18:00 12/05/17 12:10 (Abilify) 5 mg DAILY PO 11/17/17 14:45 12/05/17 08:49 Vancomycin HCl 4000 mg/ Tobramycin Sulfate 2400 mg/ Micafungin Sodium 1000 mg/Sodium Chloride 3,000 ml @ 0 mls/hr MARINE ERECTOR IRRIGATION 11/21/17 07:45 Ceftriaxone Sodium 2000 mg/ Sodium Chloride 100 ml @ 200 mls/hr Q24H IV 11/22/17 15:00 12/04/17 18:12 (Flagyl) 500 mg Q8HR PO 11/25/17 14:00 12/05/17 05:31 (Diflucan) 400 mg DAILY PO 11/26/17 09:00 12/05/17 08:49 (Dilaudid Pf Inj) 0.5 mg Q3H PRN IV PUSH 11/26/17 13:00 12/05/17 12:54 (Percocet 5-325 Mg) 1 tab Q4H PRN PO 11/26/17 13:00 (Percocet 10-325 Mg) 1 tab Q4H PRN PO 11/26/17 13:00 12/05/17 12:09 (Depakene) 500 mg Q8HR PO 11/28/17 14:00 12/05/17 05:32 Lactated Ringer's 1,000 ml @ 20 mls/hr Q24H IV 11/29/17 15:00 12/04/17 19:09 (Xanax) 0.5 mg Q8H PRN PO 11/30/17 22:00 12/05/17 12:09 Albumin Human 100 ml @ 60 mls/hr Q12H IV 12/04/17 17:00 12/05/17 05:32 Lactated Ringer's 1,000 ml @ 30 mls/hr Q24H PRN IV 12/05/17 07:00 12/08/17 06:59 Sodium Chloride 500 ml @ 30 mls/hr [id number] PRN IV 12/05/17 07:00 12/08/17 06:59 (Lopressor) 25 mg MARINE ERECTOR PRN PO 12/05/17 07:00 12/08/17 06:59 (Betadine 5% Antisepsis Kit) 1 applic MARINE ERECTOR PRN EACH NARE 12/05/17 07:00 12/08/17 06:59 (Chlorhexidine 2% Cloth) 3 pack MARINE ERECTOR PRN TOPICAL 12/05/17 07:00 12/08/17 06:59 (NovoLIN R INJ) See Protocol Table ... MARINE ERECTOR PRN SQ 12/05/17 07:00 12/08/17 06:59 A/P Assessment and Plan Severe sepsis Secondary to thigh abscess. Status post multiple surgeries. Wound VAC in place. Appreciate general surgery, orthopedic surgery and ID recommendations. S /p I&D with skin grafting right thigh 11/30. - Continue antibiotics per infectious disease. - continue wound vac/ wound care per ortho. Acute respiratory failure Resolved. Now on 2 L nasal cannula. CXR shows bibasilar patchy opacities. CXR stable. - oxygen and nebs as needed. Invasive adenocarcinoma of the rectum/ Anemia Patient has received a total of 8 units PRBCs during this hospitalization. Heme positive stools. GI consult appreciated. Mass was noted on colonoscopy. Pathology c/w mod diff invasive adenocarcinoma. Colorectal surgery, medical oncology and radiation oncology consults appreciated. - diverting colostomy 12/05 per CRS. - oncology recommending to hold off on radiation until after chemo. - follow CBC and transfuse as needed. Schizoaffective disorder The pt is endorsing anxiety. - Continue Depakote, risperidone, Abilify. - Alprazolam as needed. Hypokalemia Improved. - Replete and monitor. Anemia S/t above. Hemoglobin has been stable. - follow CBC. DVT prophylaxis: SCDs, TORSTEN mccrary. Avoid chemical prophylaxis secondary to multiple surgical procedures. Discharge Planning Awaiting surgery, chemotherapy Armando Sauer DO Dec 05, 2017 13:12
--- NOTE | 2017-12-05 13:43 | HHI.IDPN ---
Subjective Subjective Remarks is a 41 y/o CM with PMHx of Schizoaffective disorder on Haldol IM injections in bilateral buttocks. Patient reports getting these as outpatient by unknown doctor (different doctor each time per patient). Approx 1 month back after he received his last Haldol IM shot in right buttock patient noticed pain and swelling and decreased range of motion. Patient continued to receive Haldol shots in left buttock due to pain in right buttock. Patient reports his ability to move around has declined since last 1 week and he needs help with ADL phuong dressing himself due to significant pain on right lower extremity. Patient reports fevers chills and night sweats for the last 1 week prior to admission and significant worsening pain and swelling of his right lower extremity. Patient's past medical history is also significant for right dorsum of the foot marsh as a child as well as neuropathy. Per review of records it appears the patient's mother has reported that he hasn't been feeling well since July and has presented to another emergency department related to back and hip pain. The patient was diagnosed with fecal impaction and severe constipation was seen by lute packer or applier. Patient reports that he was on a bowel regimen to help with her constipation and that has been a challenge to maintain continence. Patient has had incontinence of stool and intermittently incontinence of urine since July. With this background patient presents to the emergency department for evaluation of difficulty walking, generalized weakness, weight loss loss of appetite. Reportedly while in the triage area his blood pressure was in the 70s systolic. Patient also reported abdominal pain in the lower quadrants radiating to his bilateral lower extremity but more so on the right. Patient reported nausea decrease in appetite and loss of about 20 pound weight in the last 1 month. Patient denies any recent intravenous drug abuse. Patient does endorse to receiving intramuscular Haldol in bilateral buttocks. The last right buttock Haldol injection was approximately 1 month back. Patient reports having weakness of bilateral lower extremities more so on the right especially because of sharp shooting pains down his right leg. In the emergency department patient received a total of 4 L of IV fluids as a part of severe sepsis workup and management. Cultures drawn at admission are currently pending. A CT scan of the abdomen showed appearance of soft tissue mass of the proximal thigh and gluteal region with fluid and gas tracking down the rectus muscle into the anterior thigh muscle. This is concerning for infectious or necrotic process. Infectious disease consulted for evaluation and management of severe sepsis, right buttock abscess possible osteomyelitis. Overnight events reviewed with RN No fevers No rash No diarrhea Wound vac removed. Antibiotics Current Medications Medications (Trade) Dose Ordered Sig/Mega Route Start Time Stop Time Status Last Admin (Atarax) 50 mg BID PO 11/09/17 09:00 12/05/17 08:49 (risperDAL) 3 mg DAILY PO 11/09/17 09:00 Future Hold 11/13/17 08:02 (NS Flush) 2 ml UNSCH PRN IV FLUSH 11/08/17 23:15 11/30/17 11:10 (NS Flush) 2 ml BID IV FLUSH 11/09/17 09:00 12/05/17 08:51 (Tylenol) 650 mg Q6H PRN PO 11/08/17 23:15 11/11/17 04:42 (Pepcid Inj) 20 mg Q12HR IV PUSH 11/09/17 09:00 12/05/17 08:50 (Zofran Inj) 4 mg Q6H PRN IV PUSH 11/08/17 23:15 (Restoril) 15 mg HS PRN PO 11/08/17 23:15 11/27/17 00:52 (Duoneb Neb) 1 ampule Q2HR NEB PRN INH 11/08/17 23:15 11/20/17 14:49 Miscellaneous Information 1 [id number] XX 11/08/17 23:15 11/08/17 01:00 (Chlorhexidine 2% Cloth) Taper DAILY@04 TOP 11/09/17 04:00 11/05/18 03:59 11/25/17 04:00 (Chlorhexidine 2% Cloth) 3 pack UNSCH PRN TOP 11/08/17 23:15 (Peridex 0.12% Liq) 15 ml BID@08,20 MT 11/09/17 20:00 12/05/17 08:00 (risperDAL M-TAB) 3 mg Q12HR PO 11/13/17 21:00 12/05/17 08:50 (Mycostatin Cream) 1 applic Q6HR TOPICAL 11/15/17 18:00 12/05/17 12:10 (Abilify) 5 mg DAILY PO 11/17/17 14:45 2/19/18 08:49 Vancomycin HCl 4000 mg/ Tobramycin Sulfate 2400 mg/ Micafungin Sodium 1000 mg/Sodium Chloride 3,000 ml @ 0 mls/hr WO[employer] IRRIGATION 11/21/17 07:45 Ceftriaxone Sodium 2000 mg/ Sodium Chloride 100 ml @ 200 mls/hr Q24H IV 11/22/17 15:00 12/04/17 18:12 (Flagyl) 500 mg Q8HR PO 11/25/17 14:00 12/05/17 05:31 (Diflucan) 400 mg DAILY PO 11/26/17 09:00 12/05/17 08:49 (Dilaudid Pf Inj) 0.5 mg Q3H PRN IV PUSH 11/26/17 13:00 12/05/17 12:54 (Percocet 5-325 Mg) 1 tab Q4H PRN PO 11/26/17 13:00 (Percocet 10-325 Mg) 1 tab Q4H PRN PO 11/26/17 13:00 12/05/17 12:09 (Depakene) 500 mg Q8HR PO 11/28/17 14:00 12/05/17 05:32 Lactated Ringer's 1,000 ml @ 20 mls/hr Q24H IV 11/29/17 15:00 12/04/17 19:09 (Xanax) 0.5 mg Q8H PRN PO 11/30/17 22:00 12/05/17 12:09 Albumin Human 100 ml @ 60 mls/hr Q12H IV 12/04/17 17:00 12/05/17 05:32 Lactated Ringer's 1,000 ml @ 30 mls/hr Q24H PRN IV 12/05/17 07:00 12/08/17 06:59 Sodium Chloride 500 ml @ 30 mls/hr [id number] PRN IV 12/05/17 07:00 12/08/17 06:59 (Lopressor) 25 mg [employer] PRN PO 12/05/17 07:00 12/08/17 06:59 (Betadine 5% Antisepsis Kit) 1 applic [employer] PRN EACH NARE 12/05/17 07:00 12/08/17 06:59 (Chlorhexidine 2% Cloth) 3 pack [employer] PRN TOPICAL 2/19/18 07:00 12/08/17 06:59 (NovoLIN R INJ) See Protocol Table ... [employer] PRN SQ 12/05/17 07:00 12/08/17 06:59 Lines Line sites with no evidence of infection. Past Medical History Neuropathy involving the right leg h/o marsh right foot dorsum as a child. Schizoaffective disorder, Depressions Anxiety Past Surgical History None per patient. Allergies: Coded Allergies: diphenhydramine (Verified Adverse Reaction, Unknown, 11/08/17) Objective . Vital Signs Date Time Temp Pulse Resp B/P (MAP) Pulse Ox O2 Delivery O2 Flow Rate FiO2 12/05/17 12:00 96.1 71 18 123/74 (90) 98 12/05/17 08:50 97 Room Air 12/05/17 08:00 97.9 78 18 121/76 (91) 97 12/05/17 00:00 99.2 88 20 119/73 (88) 96 12/04/17 20:00 Room Air 12/04/17 20:00 97.4 89 20 118/74 (89) 96 12/04/17 16:00 97.6 87 17 123/79 (94) 98 . Laboratory Tests Test 12/04/17 08:03 Blood Urea Nitrogen 2 MG/DL Creatinine 0.64 MG/DL Random Glucose 76 MG/DL Calcium Level 8.3 MG/DL Magnesium Level 1.8 MG/DL Sodium Level 140 MEQ/L Potassium Level 3.7 MEQ/L Chloride Level 98 MEQ/L Carbon Dioxide Level 37.0 MEQ/L Anion Gap 5 MEQ/L Estimat Glomerular Filtration Rate 139 ML/MIN Imaging Lower Extremity CT 11/15/17 0000 Signed Impressions: Service Date/Time: Wednesday, November 15, 2017 13:22 - CONCLUSION: Extensive fluid surrounding the quadriceps musculature of the right thigh as well as air within the collection anteriorly and laterally which raises the possibility of abscess/infection. Fluid is also noted extending into the region of the gluteus muscles on the right. Diffuse subcutaneous edema the right thigh is noted. Compartment syndrome should be ruled out. Jez Chowdhury MD Abdomen/Pelvis CT 11/15/17 0000 Signed Impressions: Service Date/Time: Wednesday, November 15, 2017 13:22 - CONCLUSION: The abnormal soft tissue mass now has compartmentalized fluid collections and absence of air in the right soft tissues of thigh and gluteal region. This probably represents improving inflammatory or infectious process such as abscess. Small bilateral pleural effusions persist with a new consolidation with air bronchogram in the left lower lobe. Ascitic fluid suggested in the pelvis Silvio Laguerre MD Chest X-Ray 11/14/17 0600 Signed Impressions: Service Date/Time: Tuesday, November 14, 2017 04:22 - CONCLUSION: 1. Left basilar airspace disease similar to November 12. Bertrand Smalls MD Lower Extremity Ultrasound 11/08/172011 Signed Impressions: Service Date/Time: Wednesday, November 08, 2017 20:41 - CONCLUSION: 1. Negative for deep venous thrombosis. There are mildly enlarged right inguinal lymph nodes. Bertrand Smalls MD Thoracic Spine MRI 11/08/17 0000 Signed Impressions: Service Date/Time: Wednesday, November 08, 2017 22:01 - CONCLUSION: 1. Small bilateral pleural effusions. 2. No signal abnormalities in the thoracic vertebral bodies and no evidence of focal disc disease. Jace Bird MD Lumbar Spine MRI 11/08/17 0000 Signed Impressions: Service Date/Time: Wednesday, November 08, 2017 22:01 - CONCLUSION: 1. No evidence of lumbar disc disease. 2. Soft tissue abnormality about the right gluteal region suggesting abscess with T2 prolongation and contrast enhancement ; this is incompletely included in the [id number] of the exam. 3. There is also abnormal signal within the marrow of the sacral and coccygeal marrow including contrast enhancement suggesting that the right thigh and gluteal abnormality may extend intraosseous, possibly osteomyelitis. Jace Bird MD Last Impressions Chest X-Ray 11/09/17 0000 Signed Impressions: Service Date/Time: Thursday, November 09, 2017 16:23 - CONCLUSION: Minimal infiltrate left base new from comparison study. Rodrick Ch MD FACR Lower Extremity Ultrasound 11/08/172011 Signed Impressions: Service Date/Time: Wednesday, November 08, 2017 20:41 - CONCLUSION: 1. Negative for deep venous thrombosis. There are mildly enlarged right inguinal lymph nodes. Bertrand Smalls MD Abdomen/Pelvis CT 11/08/172011 Signed Impressions: Service Date/Time: Wednesday, November 08, 2017 22:54 - CONCLUSION: 1. Abnormal appearance of the soft tissues of the proximal thigh and gluteal region with fluid and gas tracking between the rectus muscles and the anterior thigh muscles. No focal abnormal areas of enhancement. The combination of fluid and gas suggests either an infectious or necrotic process. 2. Nonobstructing small calcified stone mid pole left kidney and multiple left renal cysts. 3. Small bilateral pleural effusions. Jace Bird MD Thoracic Spine MRI 11/08/17 0000 Signed Impressions: Service Date/Time: Wednesday, November 08, 2017 22:01 - CONCLUSION: 1. Small bilateral pleural effusions. 2. No signal abnormalities in the thoracic vertebral bodies and no evidence of focal disc disease. Jace Bird MD Lumbar Spine MRI 11/08/17 0000 Signed Impressions: Service Date/Time: Wednesday, November 08, 2017 22:01 - CONCLUSION: 1. No evidence of lumbar disc disease. 2. Soft tissue abnormality about the right gluteal region suggesting abscess with T2 prolongation and contrast enhancement ; this is incompletely included in the [id number] of the exam. 3. There is also abnormal signal within the marrow of the sacral and coccygeal marrow including contrast enhancement suggesting that the right thigh and gluteal abnormality may extend intraosseous, possibly osteomyelitis. Jace Bird MD Physical Exam GENERAL: Awake and interactive, not in respiratory distress. SKIN: Warm and dry, no generalized rash HEAD: Atraumatic. Normocephalic. No temporal or scalp tenderness. EYES: Pupils equal round and reactive. Extraocular motions intact. No scleral icterus. No injection or drainage. ENT: Dry oral mucosa, no nasal discharge NECK: Trachea midline. Supple, nontender, no meningeal signs. CARDIOVASCULAR: HS audible. RESPIRATORY: Diffuse rhonchi bilaterally GASTROINTESTINAL: Abdomen soft, non-tender, nondistended. MUSCULOSKELETAL: RLE with dressing in place. NEUROLOGICAL: Awake and alert and interactive. Grossly nonfocal Psych cooperative IV line sites with no e.o infection. Assessment & Plan Remarks Severe sepsis present on admission. Staph coag neg bacteremia: 1 out of 4 bottles likely contaminant. E.coli and Strep, mixed anaerobes (beta lactamase positive) and Paz albicans , right thigh abscess/osteomyelitis, extending to pelvis/hip and R knee - S/P multiple dbridements Possible sacral osteomyelitis Schizoaffective disorder receives IM Haldol injections in the buttocks. Lower extremity neuropathy. Weight loss, loss of appetite Diarrhea check stool C. difficile Recommendations: Continue Ceftriaxone IV Change Flagyl to oral Change Diflucan to oral noted Colonoscopy findings. Noted notes and Oncology notes. Given this new information this infection is almost definitely related to the GI malignancy process. Follow cultures Follow clinically. alfonso SMITH dw Mom updated about new information and how it affects the management. syd Webber: concern that radiation may affect blood supply and hence effective treatment of concomitant infection. She will dw Radiation Oncology. María Upton MD Dec 05, 2017 13:43
[2017-12-05] MEDS: cefTRIAXone INJ 2,000 MG in SODIUM CHLORIDE 0.9% INJ 100 ML IV SCH (14:24)
[2017-12-05] MEDS ORDERED: metroNIDAZOLE 500 MG INJ 100 ML IV ONE (16:51)
[2017-12-05] MEDS ORDERED: DO NOT ADM ANY ANTICOAGULANT DRUGS PRN (18:00)
[2017-12-05] MEDS ORDERED: *morphine SULFATE 10 MG/ML PERIprocedure ONLY ONE (18:23)
[2017-12-05] MEDS ORDERED: MIDAZOLAM HCL 2 MG/2 ML VIAL ONE (18:41)
[2017-12-05 20:00] VITALS: BP 140/91; PULSE 89; RESP 18; TEMP 96.1; O2SAT 97
[2017-12-06] VITALS: BP 123/87; PULSE 103; RESP 20; TEMP 97.9; O2SAT 96
[2017-12-06] MEDS: SODIUM CHLORIDE 0.9% FLUSH 10 ML FLUSH IV FLUSH SCH ×2 (01:31→20:19)
[2017-12-06] MEDS: HYDROmorphone HCL PF 2 MG/ML VIAL IV PUSH PRN ×4 (01:31→20:21)
[2017-12-06] MEDS: cefTRIAXone INJ 2,000 MG in SODIUM CHLORIDE 0.9% INJ 100 ML IV SCH ×2 (03:19→14:39)
[2017-12-06] MEDS: oxyCODONE/ACETAMINOPHEN 10 MG/325 MG TAB PO PRN ×4 (03:20→21:31)
[2017-12-06] MEDS: CHLORHEXIDINE GLUCONATE 2 % 1 PACK (2 CLOTHS) TOP SCH (03:21)
[2017-12-06] MEDS: metroNIDAZOLE 500 MG TAB PO SCH ×3 (05:12→20:19)
[2017-12-06] MEDS: LACTATED RINGER'S 1000 ML INJ 1,000 ML IV SCH ×2 (05:14→18:33)
[2017-12-06] MEDS: SODIUM CHLORIDE 0.9% FLUSH 10 ML FLUSH IV FLUSH PRN (05:25)
[2017-12-06] MEDS: ALBUMIN 25% INJ 100 ML IV SCH ×2 (05:25→17:09)
[2017-12-06] MEDS: VALPROIC ACID 250 MG CAP PO SCH ×3 (05:25→20:19)
[2017-12-06] MEDS: NYSTATIN 100,000 UNIT/GM CREAM 15 GM TOPICAL SCH ×4 (05:27→18:33)
[2017-12-06 08:00] VITALS: BP 136/92; PULSE 88; RESP 19; TEMP 96.9; O2SAT 95
[2017-12-06] MEDS: CHLORHEXIDINE 0.12% (ORAL KIT) 15 ML CUP MT SCH ×2 (08:00→20:00)
[2017-12-06 08:14] LABS: HEMATOCRIT 23.6 % (39.0-51.0); HEMOGLOBIN 7.8 GM/DL (13.0-17.0); MEAN CELL VOLUME 85.2 FL (80.0-100.0); MEAN CORPUSCULAR HEMOGLOBIN 28.3 PG (27.0-34.0); MEAN CORPUSCULAR HGB CONC 33.2 % (32.0-36.0); MEAN PLATELET VOLUME 7.4 FL (7.0-11.0); PLATELET COUNT 282 TH/MM3 (150-450); RED BLOOD COUNT 2.77 MIL/MM3 (4.50-5.90); WHITE BLOOD COUNT 8.5 TH/MM3 (4.0-11.0)
[2017-12-06 08:46] LABS: BICARBONATE 29.3 MEQ/L (21.0-32.0); CALCIUM 8.6 MG/DL (8.5-10.1); CREATININE 0.84 MG/DL (0.60-1.30); MAGNESIUM 1.9 MG/DL (1.5-2.5)
--- NOTE | 2017-12-06 08:52 | HHI.PR ---
Subjective Remarks in no acute distress. afebrile. pain seems to be controlled. Objective Vitals Vital Signs Date Time Temp Pulse Resp B/P (MAP) Pulse Ox O2 Delivery O2 Flow Rate FiO2 12/06/17 00:00 97.9 103 20 123/87 (99) 96 12/05/17 20:00 96.1 89 18 140/91 (107) 97 12/05/17 18:30 97.8 79 16 125/87 (100) 100 Nasal Cannula 2 12/05/17 18:15 74 16 134/82 (99) 100 Nasal Cannula 2 12/05/17 17:58 97.8 82 16 123/77 (92) 100 Nasal Cannula 2 12/05/17 13:09 18 12/05/17 13:09 18 12/05/17 12:00 96.1 71 18 123/74 (90) 98 I/O 12/05/17 12/05/17 12/05/17 12/06/17 12/06/17 12/06/17 07:00 15:00 23:00 07:00 15:00 23:00 Intake Total 480 ml 1200 ml 100 ml Output Total 6900 ml 1010 ml 3350 ml Balance -6420 ml 190 ml -3250 ml Intake Oral 480 ml 0 ml IV Total 100 ml Other 1200 ml Output Urine Total 6900 ml 1000 ml 3350 ml Estimated Blood Loss 10 ml # Bowel Movements 3 0 Result Diagram: 12/06/17 0725 12/04/17 0803 Imaging Last Impressions Chest X-Ray 11/30/17 0600 Signed Impressions: Service Date/Time: Thursday, November 30, 2017 05:14 - CONCLUSION: No significant change has occurred. Oscar Mmcanus MD Lower Extremity CT 11/15/17 0000 Signed Impressions: Service Date/Time: Wednesday, November 15, 2017 13:22 - CONCLUSION: Extensive fluid surrounding the quadriceps musculature of the right thigh as well as air within the collection anteriorly and laterally which raises the possibility of abscess/infection. Fluid is also noted extending into the region of the gluteus muscles on the right. Diffuse subcutaneous edema the right thigh is noted. Compartment syndrome should be ruled out. Jez Chowdhury MD Abdomen/Pelvis CT 11/15/17 0000 Signed Impressions: Service Date/Time: Wednesday, November 15, 2017 13:22 - CONCLUSION: The abnormal soft tissue mass now has compartmentalized fluid collections and absence of air in the right soft tissues of thigh and gluteal region. This probably represents improving inflammatory or infectious process such as abscess. Small bilateral pleural effusions persist with a new consolidation with air bronchogram in the left lower lobe. Ascitic fluid suggested in the pelvis Silvio Laguerre MD Lower Extremity Ultrasound 11/08/172011 Signed Impressions: Service Date/Time: Wednesday, November 08, 2017 20:41 - CONCLUSION: 1. Negative for deep venous thrombosis. There are mildly enlarged right inguinal lymph nodes. Bertrand Smalls MD Thoracic Spine MRI 11/08/17 0000 Signed Impressions: Service Date/Time: Wednesday, November 08, 2017 22:01 - CONCLUSION: 1. Small bilateral pleural effusions. 2. No signal abnormalities in the thoracic vertebral bodies and no evidence of focal disc disease. Jace Bird MD Lumbar Spine MRI 11/08/17 0000 Signed Impressions: Service Date/Time: Wednesday, November 08, 2017 22:01 - CONCLUSION: 1. No evidence of lumbar disc disease. 2. Soft tissue abnormality about the right gluteal region suggesting abscess with T2 prolongation and contrast enhancement ; this is incompletely included in the [id number] of the exam. 3. There is also abnormal signal within the marrow of the sacral and coccygeal marrow including contrast enhancement suggesting that the right thigh and gluteal abnormality may extend intraosseous, possibly osteomyelitis. Jace Bird MD Objective Remarks GENERAL: This is a well-nourished, well-developed patient, in no apparent distress. CARDIOVASCULAR: Regular rate and regular rhythm without murmurs, gallops, or rubs. RESPIRATORY: Clear to auscultation. Breath sounds equal bilaterally. No wheezes , rales, or rhonchi. GASTROINTESTINAL: Abdomen soft, non-tender, nondistended/ colostomy in place. MUSCULOSKELETAL: right thigh covered with clean dressing. NEURO: Alert & Oriented x4 to person, place, time, situation. Moves all ext x4 Procedures 11/09/17 incision and drainage, irrigation and debridement of right hip abscess with placement of VAC dressing 11/11/17 removal of VAC device, irrigation and debridement of right gluteal hip abscess with placement of drain and replacement of VAC 11/16/17 irrigation and debridement of pelvic infection and abscess, irrigation and debridement of right thigh abscess, right knee arthrotomy with irrigation and debridement 11/16/17 incision and drainage, irrigation and debridement of complex lower extremity abscess with removal of subcutaneous tissue, fascia, and muscle, with application of VAC device 11/18/17 irrigation and debridement of right pelvis and hip, irrigation and debridement of right thigh, irrigation and debridement of right knee 11/21/17 irrigation and debridement of right hip, right thigh, and right knee. Application of wound VAC dressing 11/24/17 irrigation and debridement of right hip, right thigh, right knee. Secondary wound closure, application of wound VAC 11/30/17 I&D with skin grafting right thigh 12/01/17 Colonoscopy 12/05/17 colostomy Medications and IVs Inpatient Medications Acetaminophen (Tylenol) 650 mg Q6H PRN PO PAIN 1-2 AND/OR FEVER >101F Last administered on 11/11/17at 04:42; Start 11/08/17 at 23:15 Albumin Human 100 ml @ 60 mls/hr Q12H IV Last administered on 12/06/17at 05:25 ; Start 12/04/17 at 17:00 Albuterol/ Ipratropium (Duoneb Neb) 1 ampule Q4HR NEB NEB Last administered on 11/17/17at 23:48; Start 11/14/17 at 00:00; Stop 11/17/17 at 23:59; Status DC Alprazolam (Xanax) 0.5 mg Q8H PRN PO anxiety Last administered on 12/05/17at 12: 09; Start 11/30/17 at 22:00 Aripiprazole (Abilify) 5 mg DAILY PO Last administered on 12/05/17at 08:49; Start 11/17/17 at 14:45 Cefepime HCl 2000 mg/Sodium Chloride 100 ml @ 200 mls/hr Q8H IV Last administered on 11/22/17at 08:32; Start 11/19/17 at 17:00; Stop 11/22/17 at 14:11; Status DC Ceftriaxone Sodium 2000 mg/ Sodium Chloride 100 ml @ 200 mls/hr Q12H IV Last administered on 12/06/17at 03:19; Start 12/05/17 at 15:00 Chlorhexidine Gluconate (Chlorhexidine 2% Cloth) 3 pack HYDRAULICS ENGINEER PRN TOPICAL SEE LABEL COMMENTS; Start 12/05/17 at 07:00; Stop 12/08/17 at 06:59 Chlorhexidine Gluconate (Peridex 0.12% Liq) 15 ml BID@08,20 MT Last administered on 12/05/17at 08:00; Start 11/09/17 at 20:00 Clindamycin/ Sodium Chloride 50 ml @ 100 mls/hr Q6H IV Last administered on at 12:14; Start 11/09/17 at 06:00; Stop 11/10/17 at 16:03; Status DC Dextrose 1,000 ml @ 75 mls/hr [id number] IV Last administered on 11/23/17at 21:43; Start 11/12/17 at 16:45; Stop 11/24/17 at 11:21; Status DC Divalproex Sodium (Depakote Dr) 500 mg BID PO Last administered on 11/09/17at 09 :22; Start 11/09/17 at 09:00; Stop 11/28/17 at 10:26; Status DC Divalproex Sodium (Depakote Er) 500 mg BID PO Last administered on 11/23/17at 08: 46; Start 11/17/17 at 14:45; Stop 11/28/17 at 10:26; Status DC Famotidine (Pepcid Inj) 20 mg Q12HR IV PUSH Last administered on 12/05/17at 21: 11; Start 11/09/17 at 09:00 Fentanyl (Duragesic 50 Mcg Patch.72 Hr) 1 patch ONCE ONCE T-DERMAL Last administered on 11/14/17at 14:10; Start 11/14/17 at 14:00; Stop 11/14/17 at 14:01 ; Status DC Fentanyl Citrate 250 ml @ 5 mls/hr TITRATE PRN IV SEDATION Last administered on 11/13/17at 06:06; Start 11/09/17 at 17:45; Stop 11/13/17 at 20:26; Status DC Fluconazole (Diflucan) 400 mg DAILY PO Last administered on 12/05/17at 08:49; Start 11/26/17 at 09:00 Fluconazole/ Sodium Chloride 200 ml @ 100 mls/hr Q24H IV Last administered on 11/25/17at 10:21; Start 11/20/17 at 10:00; Stop 11/25/17 at 13:59; Status DC Furosemide (Lasix Inj) 20 mg UNSCH X1 IV PUSH Last administered on 11/16/17at 08:28; Start 11/16/17 at 07:45; Stop 11/16/17 at 23:59; Status DC Heparin Sodium (Porcine) (Heparin Inj) 5,000 units Q8H SQ ; Start 11/08/17 at 23 :15; Stop 11/09/17 at 08:21; Status DC Hydromorphone HCl (Dilaudid Pf Inj) 0.5 mg Q3H PRN IV PUSH BREAKTHROUGH PAIN Last administered on 12/06/17at 01:31; Start 11/26/17 at 13:00 Hydroxyzine HCl (Atarax) 50 mg BID PO Last administered on 12/05/17at 21:12; Start 11/09/17 at 09:00 Insulin Human Regular (NovoLIN R INJ) See Protocol Table ... HYDRAULICS ENGINEER PRN SQ SEE PROTOCOL TABLE; Start 12/05/17 at 07:00; Stop 12/08/17 at 06:59 Lactated Ringer's 1,000 ml @ 30 mls/hr Q24H PRN IV SEE LABEL COMMENTS; Start at 07:00; Stop 12/08/17 at 06:59 Lorazepam (Ativan Inj) 4 mg ONCE ONCE IV PUSH Last administered on 11/15/17at 10:22; Start 11/15/17 at 10:15; Stop 11/15/17 at 10:16; Status DC Magnesium Citrate (Citroma Liq) 300 ml ONCE ONCE PO Last administered on at 19:19; Start 11/29/17 at 18:00; Stop 11/29/17 at 18:01; Status DC Magnesium Oxide (Mag-Ox) 800 mg UNSCH PRN PO For Magnesium 1.2 - 1.6 mg/dL; Start 11/14/17 at 14:00; Stop 11/23/17 at 19:30; Status DC Magnesium Sulfate 2 gm/Sodium Chloride 100 ml @ 50 mls/hr UNSCH PRN IV For Magnesium 1.2 - 1.6 mg/dL; Start 11/14/17 at 14:00; Stop 11/23/17 at 19:30; Status DC Magnesium Sulfate 4 gm/Sodium Chloride 100 ml @ 50 mls/hr UNSCH PRN IV For Magnesium 0.9 - 1.1 mg/dL; Start 11/14/17 at 14:00; Stop 11/23/17 at 19:29; Status DC Metoprolol Tartrate (Lopressor) 25 mg HYDRAULICS ENGINEER PRN PO SEE LABEL COMMENTS; Start 12/05/17 at 07:00; Stop 12/08/17 at 06:59 Metronidazole (Flagyl) 500 mg Q8HR PO Last administered on 12/06/17at 05:12; Start 11/25/17 at 14:00 Micafungin Sodium 150 mg/Sodium Chloride 100 ml @ 100 mls/hr Q24H IV Last administered on 11/20/17at 08:36; Start 11/15/17 at 09:00; Stop 11/20/17 at 09:08; Status DC Micafungin Sodium 1000 mg/Sodium Chloride 3,000 ml @ 0 mls/hr ONCE ONCE OTHER Last administered on 11/18/17at 14:15; Start 11/18/17 at 14:00; Stop 11/18/17 at 14:01; Status DC Miscellaneous Information ALL NURSING DEPARTME... UNSCH PRN .XX SEE LABEL COMMENTS; Start 12/05/17 at 18:00; Stop 12/06/17 at 17:59 Miscellaneous Information (RASS Change Order) 1 ea ONCE ONCE XX Last administered on 11/09/17at 17:19; Start 11/09/17 at 16:30; Stop 11/09/17 at 16:32 ; Status DC Nystatin (Mycostatin Cream) 1 applic Q6HR TOPICAL Last administered on at 05:27; Start 11/15/17 at 18:00 Ondansetron HCl (Zofran Inj) 4 mg Q6H PRN IV PUSH NAUSEA OR VOMITING; Start at 23:15 Oxycodone/ Acetaminophen (Percocet 5-325 Mg) 1 tab Q4H PRN PO PAIN SCALE 3 TO 6; Start 11/26/17 at 13:00 Oxycodone/ Acetaminophen (Percocet 10-325 Mg) 1 tab Q4H PRN PO PAIN SCALE 7 TO 10 Last administered on 12/06/17at 03:20; Start 11/26/17 at 13:00 Pharmacy Profile Note 0 ml @ 0 mls/hr UNSCH OTHER ; Start 11/15/17 at 17:15; Stop 11/20/17 at 09:08; Status DC Piperacillin Sod/ Tazobactam Sod 100 ml @ 200 mls/hr Q6H IV Last administered on 11/14/17at 03:26; Start 11/09/17 at 03:00; Stop 11/14/17 at 08:49; Status DC Potassium Phosphate (K-Phos) 2,000 mg UNSCH PRN PO/TUBE SEE LABEL COMMENTS; Start 11/14/17 at 14:00; Stop 11/23/17 at 19:30; Status DC Potassium Phosphate 30 mmol/ Sodium Chloride 260 ml @ 42 mls/hr UNSCH PRN IV SEE LABEL COMMENTS; Start 11/14/17 at 14:00; Stop 11/23/17 at 19:30; Status DC Potassium Bicarb/ Potassium Chloride (K-Lyte Cl Eff) 25 meq ONCE ONCE PO Last administered on 12/04/17at 13:21; Start 12/04/17 at 12:15; Stop 12/04/17 at 12:16; Status DC Potassium Chloride (KCl) 40 meq Q4H PO Last administered on 12/02/17at 15:43; Start 12/02/17 at 11:00; Stop 12/02/17 at 15:01; Status DC Povidone Iodine (Betadine 5% Antisepsis Kit) 1 applic HYDRAULICS ENGINEER PRN EACH NARE SEE LABEL COMMENTS; Start 12/05/17 at 07:00; Stop 12/08/17 at 06:59 Propofol 100 ml @ 2.166 mls/ hr TITRATE PRN IV SEDATION; Start 11/09/17 at 17: 45; Stop 11/13/17 at 20:26; Status DC Risperidone (risperDAL M-TAB) 3 mg Q12HR PO Last administered on 12/05/17at 21: 13; Start 11/13/17 at 21:00 Risperidone (risperDAL) 3 mg DAILY PO Last administered on 11/13/17at 08:02; Start 11/09/17 at 09:00; Status Future Hold Sodium Chloride 500 ml @ 30 mls/hr [id number] PRN IV SEE LABEL COMMENTS; Start at 07:00; Stop 12/08/17 at 06:59 Sodium Chloride (NS Flush) 2 ml BID IV FLUSH Last administered on 12/06/17at 01: 31; Start 11/09/17 at 09:00 Sodium Phosphate 30 mmol/Sodium Chloride 250 ml @ 42 mls/hr UNSCH PRN IV For Phosphorus < 2.5 mg/dL; Start 11/14/17 at 14:00; Stop 11/23/17 at 19:30; Status DC Temazepam (Restoril) 15 mg HS PRN PO INSOMNIA Last administered on 11/27/17at 00 :52; Start 11/08/17 at 23:15 Valproate Sodium 500 mg/Sodium Chloride 105 ml @ 105 mls/hr Q8HR IV Last administered on 11/28/17at 05:43; Start 11/13/17 at 22:00; Stop 11/28/17 at 10:26 ; Status DC Valproic Acid (Depakene Liq) 500 mg BID OG-TUBE Last administered on 11/13/17at 08:02; Start 11/09/17 at 23:00; Stop 11/28/17 at 10:26; Status DC Valproic Acid (Depakene) 500 mg Q8HR PO Last administered on 12/06/17at 05:25; Start 11/28/17 at 14:00 Vancomycin HCl 1000 mg/Sodium Chloride 250 ml @ 250 mls/hr Q12H IV Last administered on 11/09/17at 11:55; Start 11/09/17 at 00:00; Stop 11/09/17 at 13:52 ; Status DC Vancomycin HCl 1250 mg/Sodium Chloride 262.5 ml @ 262.5 mls/ hr ONCE ONCE IV Last administered on 11/15/17at 18:09; Start 11/15/17 at 17:15; Stop 11/15/17 at 18:14; Status DC Vancomycin HCl 1500 mg/Sodium Chloride 515 ml @ 257.5 mls/ hr Q12H IV Last administered on 11/20/17at 00:46; Start 11/16/17 at 12:00; Stop 11/20/17 at 09:08; Status DC Vancomycin HCl 4000 mg/ Tobramycin Sulfate 2400 mg/ Micafungin Sodium 1000 mg/ Sodium Chloride 3,000 ml @ 0 mls/hr HYDRAULICS ENGINEER IRRIGATION ; Start 11/21/17 at 07: 45 Vancomycin/Sodium Chloride 200 ml @ 200 mls/hr HYDRAULICS ENGINEER IV ; Start 11/08/17 at 21:30; Stop 11/09/17 at 13:53; Status DC A/P Assessment and Plan Severe sepsis Secondary to thigh abscess. Status post multiple surgeries Appreciate general surgery, orthopedic surgery and ID recommendations. S/p I&D with skin grafting right thigh 11/30. - Continue antibiotics per infectious disease. - continue wound vac/ wound care per ortho. Acute respiratory failure Resolved. Now on 2 L nasal cannula. CXR shows bibasilar patchy opacities. CXR stable. - oxygen and nebs as needed. Invasive adenocarcinoma of the rectum/ Anemia Patient has received a total of 8 units PRBCs during this hospitalization. Heme positive stools. GI consult appreciated. Mass was noted on colonoscopy. Pathology c/w mod diff invasive adenocarcinoma. Colorectal surgery, medical oncology and radiation oncology consults appreciated. - s/p diverting colostomy 12/05 per CRS. - oncology recommending to hold off on radiation until after chemo. - follow CBC and transfuse as needed. Schizoaffective disorder The pt is endorsing anxiety. - Continue Depakote, risperidone, Abilify. - Alprazolam as needed. Hypokalemia Improved. Anemia S/t above. Hemoglobin has been stable. - follow CBC. DVT prophylaxis: TORSTEN Abel. Avoid chemical prophylaxis secondary to multiple surgical procedures. Discharge Planning when cleared by consultants. Christian Manzano MD Dec 06, 2017 08:52
[2017-12-06] MEDS: hydrOXYzine HCL 50 MG TAB PO SCH ×2 (08:59→20:19)
[2017-12-06] MEDS: risperiDONE ODT 3 MG TAB PO SCH ×2 (08:59→20:19)
[2017-12-06] MEDS: ARIPiprazole 5 MG TAB PO SCH (08:59)
[2017-12-06] MEDS: FLUCONAZOLE 200 MG TAB PO SCH (08:59)
[2017-12-06] MEDS: FAMOTIDINE 20 MG/2 ML VIAL IV PUSH SCH (08:59)
--- NOTE | 2017-12-06 10:16 | HHI.FF ---
Face to Face Verification Diagnosis: (1) Colorectal cancer Physical Therapy Order: Evaluate and Treat Home Health Nursing Order: Medical education Signs/symptoms of disease process Medication education-adverse effect Wound care and dressing changes Nursing assessment with vital signs Instructions: colostomy care. I have seen patient Bertrand Price on 12/06/17. My clinical findings support the need for the requested home health care services because: Ltd mobility - disease progression I certify that my clinical findings support that this patient is homebound because: Unsteady gait/balance Christian Manzano MD Dec 06, 2017 10:16
--- NOTE | 2017-12-06 11:29 | PD.ONC.PN ---
Subjective Subjective Remarks Afebrile overnight. Patient resting in bed. states he feels tired today. otherwise without complaint. Objective Data Date Time Temp Pulse Resp B/P (MAP) Pulse Ox O2 Delivery O2 Flow Rate FiO2 12/06/17 08:00 96.9 88 19 136/92 (107) 95 12/06/17 00:00 97.9 103 20 123/87 (99) 96 12/05/17 20:00 96.1 89 18 140/91 (107) 97 12/05/17 18:30 97.8 79 16 125/87 (100) 100 Nasal Cannula 2 12/05/17 18:15 74 16 134/82 (99) 100 Nasal Cannula 2 12/05/17 17:58 97.8 82 16 123/77 (92) 100 Nasal Cannula 2 12/05/17 13:09 18 12/05/17 13:09 18 12/05/17 12:00 96.1 71 18 123/74 (90) 98 12/06/17 12/06/17 12/06/17 07:00 15:00 23:00 Intake Total 1200 ml Output Total 3350 ml Balance -2150 ml Result Diagram: 12/06/17 0725 12/06/17 0725 Laboratory Results Laboratory Tests Test 12/06/17 07:25 White Blood Count 8.5 TH/MM3 Red Blood Count 2.77 MIL/MM3 Hemoglobin 7.8 GM/DL Hematocrit 23.6 % Mean Corpuscular Volume 85.2 FL Mean Corpuscular Hemoglobin 28.3 PG Mean Corpuscular Hemoglobin Concent 33.2 % Red Cell Distribution Width 20.0 % Platelet Count 282 TH/MM3 Mean Platelet Volume 7.4 FL Blood Urea Nitrogen 7 MG/DL Creatinine 0.84 MG/DL Random Glucose 169 MG/DL Calcium Level 8.6 MG/DL Magnesium Level 1.9 MG/DL Sodium Level 134 MEQ/L Potassium Level 4.5 MEQ/L Chloride Level 95 MEQ/L Carbon Dioxide Level 29.3 MEQ/L Anion Gap 10 MEQ/L Estimat Glomerular Filtration Rate 102 ML/MIN Administered Medications Medications (Trade) Dose Ordered Sig/Mega Route PRN Reason Start Time Stop Time Status Last Admin Dose Admin Hydroxyzine HCl (Atarax) 50 mg BID PO 11/09/17 09:00 12/06/17 08:59 Risperidone (risperDAL) 3 mg DAILY PO 11/09/17 09:00 Future Hold 11/13/17 08:02 Sodium Chloride (NS Flush) 2 ml UNSCH PRN IV FLUSH FLUSH AFTER USING IV ACCESS 11/08/17 23:15 12/06/17 05:25 Sodium Chloride (NS Flush) 2 ml BID IV FLUSH 11/09/17 09:00 12/06/17 01:31 Acetaminophen (Tylenol) 650 mg Q6H PRN PO PAIN 1-2 AND/OR FEVER >101F 11/08/17 23:15 11/11/17 04:42 Famotidine (Pepcid Inj) 20 mg Q12HR IV PUSH 11/09/17 09:00 12/06/17 08:59 Temazepam (Restoril) 15 mg HS PRN PO INSOMNIA 11/08/17 23:15 11/27/17 00:52 Albuterol/ Ipratropium (Duoneb Neb) 1 ampule Q2HR NEB PRN INH WHEEZING 11/08/17 23:15 11/20/17 14:49 Miscellaneous Information 1 Q361D XX 11/08/17 23:15 11/08/17 01:00 Chlorhexidine Gluconate (Chlorhexidine 2% Cloth) Taper DAILY@04 TOP 11/09/17 04:00 11/05/18 03:59 11/25/17 04:00 Chlorhexidine Gluconate (Peridex 0.12% Liq) 15 ml BID@08,20 MT 11/09/17 20:00 12/05/17 08:00 Risperidone (risperDAL M-TAB) 3 mg Q12HR PO 11/13/17 21:00 12/06/17 08:59 Nystatin (Mycostatin Cream) 1 applic Q6HR TOPICAL 11/15/17 18:00 12/06/17 05:27 Aripiprazole (Abilify) 5 mg DAILY PO 11/17/17 14:45 12/06/17 08:59 Metronidazole (Flagyl) 500 mg Q8HR PO 11/25/17 14:00 12/06/17 05:12 Fluconazole (Diflucan) 400 mg DAILY PO 11/26/17 09:00 12/06/17 08:59 Hydromorphone HCl (Dilaudid Pf Inj) 0.5 mg Q3H PRN IV PUSH BREAKTHROUGH PAIN 11/26/17 13:00 12/06/17 01:31 Oxycodone/ Acetaminophen (Percocet 10-325 Mg) 1 tab Q4H PRN PO PAIN SCALE 7 TO 10 11/26/17 13:00 12/06/17 09:05 Valproic Acid (Depakene) 500 mg Q8HR PO 11/28/17 14:00 12/06/17 05:25 Lactated Ringer's 1,000 ml @ 80 mls/hr [id number] IV 11/29/17 15:00 12/06/17 05:14 Alprazolam (Xanax) 0.5 mg Q8H PRN PO anxiety 11/30/17 22:00 12/05/17 12:09 Albumin Human 100 ml @ 60 mls/hr Q12H IV 12/04/17 17:00 12/06/17 05:25 Ceftriaxone Sodium 2000 mg/ Sodium Chloride 100 ml @ 200 mls/hr Q12H IV 12/05/17 15:00 12/06/17 03:19 Objective Remarks GENERAL: pleasant calm male, lying in bed in nad. SKIN: Warm and dry. HEAD: Normocephalic. EYES: No injection or drainage. NECK: Supple, trachea midline. CARDIOVASCULAR: Regular rate and rhythm RESPIRATORY: Breath sounds equal bilaterally. No accessory muscle use. GASTROINTESTINAL: Abdomen soft, non-tender, nondistended. +ostomy bag in place. EXTREMITIES: No cyanosis NEUROLOGICAL: awake and alert, normal speech. Assessment/Plan Problem List: (1) Colorectal cancer ICD Codes: C19 - Malignant neoplasm of rectosigmoid junction Plan: --s/p diverting colostomy, 12/05/17 --will plan follow up in clinic. --will wait to start XRT until infections resolve. --fs faxed Assessment 41y/o male with newly diagnosed colorectal cancer. history of schizoaffective, disorder, depression, anxiety. HPI (brought forward for continuity of care) presented to the emergency room on November 08, 2017 with sepsis. Ultrasound of the lower extremity showed mildly enlarged right inguinal lymph node. CT scan of the abdomen and pelvis showed abnormal appearance of the soft tissue of the proximal thigh and gluteal region with fluid and gas tracking between the rectus muscle and anterior thigh muscle. He also had small bilateral pleural effusions. He was referred to general surgery and came under the care of Dr. Bertrand Campos who performed incision and drainage and debridement of the right hip abscess with placement of a VAC dressing. has had repeated surgery for the right hip abscess and VAC dressing placement. He has involved infectious disease and ICU. He has had multiple procedures. Recently in 11/30/2017 he had incision and drainage with skin grafting from the right thigh. Wound VAC is still in place on the right leg. During the course of his hospitalization, he complained of constipation. The constipation pre-dated his hospital admission. He was noted to have a normocytic anemia and heme-positive stools. He has required red cell transfusions. Ultimately a colonoscopy was performed by Dr. Maza on 2017. The findings showed a friable fungating irregular rectal mass suspicious for malignancy. Biopsy of the rectum showed extensively necrotic invasive moderately differentiated adenocarcinoma. Staging evaluation including a repeat CT scan of the abdomen showed some ascitic fluid in the pelvis. There is a bilateral pleural effusion but no obvious site of distant metastatic disease. Plan 1. start Lovenox 40mg SQ qd for DVT prophylaxis: patient at high risk with malignancy + s/p surgery + largely immobilized. 2. continue antibiotics. 3. monitor CBC Brunilda Nieto Dec 06, 2017 11:28
--- NOTE | 2017-12-06 11:41 | PD.WCN.NOT ---
Wound Consult Description: New Ostomy Teaching per Dr Torres and Dr Manzano Communicated with: Patient Recommendation: Observe ostomy for moist pink/red color Release air by opening pouch at the flange Empty pouch of effluent when 1/3-1/2 full Additional Information: Patient seen on [address] [place] [address] for ostomy teaching and assessment. Ostomy Type: Colostomy (Loop) Surgeon: Too Torres MD Date of Surgery: Dec 05, 2017 Complete: Education materials (Left at bedside) Educated patient on: Color of stoma should be pink/red and moist Function of stoma Change appliance once weekly Empty pouch when half full Ensure the pouch is closed to avoid leaks Additional information Patient seen on [address] [place] [address] for ostomy teaching and assessment. Patient was shown his stoma and explained after surgery, patient will begin to release air from his stoma and by burping as he increases his movements. Patient states that his mom will be in later today and asked if specification writer could come back and teach both of them at the same time. Patient was shown his educational materials in the [employer] blue kit that was left in his room for reference. Call abbott was placed near patient prior to leaving. Patient states pain and he was encouraged to deep breathe and call for RN. Loop colostomy is located on the mid lower left abdomen. Stoma is pink, oval, moderately protruding, moist, edematous, not functioning at this time. There is minimal clear yellow/pink liquid noted in pouch that was not emptied by specification writer. Carlos is noted in place underneath loop colostomy. Appliance is intact and was closed at flange (minimal liquid was noted coming from appliance that was not closed completely where the pouch meets the wafer). Bhavani Carrillo [facility] Dec 06, 2017 11:41
[2017-12-06 12:00] VITALS: BP 144/87; PULSE 84; RESP 18; TEMP 96.7; O2SAT 96
[2017-12-06 16:00] VITALS: BP 133/93; PULSE 83; RESP 19; TEMP 97.1; O2SAT 95
[2017-12-06] MEDS: ENOXAPARIN SODIUM 40 MG/0.4 ML SYRINGE SQ SCH (17:08)
[2017-12-06 20:00] VITALS: BP 128/80; PULSE 85; RESP 20; TEMP 97.4; O2SAT 95
[2017-12-06] MEDS: FAMOTIDINE 20 MG TAB PO SCH (20:19)
--- NOTE | 2017-12-06 20:20 | HHI.PR ---
Subjective Remarks C/R Surg POD #1 afebrile, VSS javier PO UO good Objective - Vital Signs Date Time Temp Pulse Resp B/P (MAP) Pulse Ox O2 Delivery O2 Flow Rate FiO2 12/06/17 16:00 97.1 83 19 133/93 (106) 95 12/06/17 08:05 Room Air 12/05/17 18:30 2 Result Diagram: 12/06/17 0725 12/06/17 0725 Objective Remarks PE alert Abd - soft, non-tender, stoma pink A/P Assessment and Plan Imp: lg rectal cancer, perforated stable post-op OOB per ortho chemoRT soon as stable DC plans Too Torres MD Dec 06, 2017 20:20
[2017-12-07] VITALS (7 sets, daily range): BP systolic 127–136; BP diastolic 84–93; PULSE 78–105; RESP 16–20; TEMP 96.8–98.3; O2SAT 92–98
[2017-12-07] MEDS: NYSTATIN 100,000 UNIT/GM CREAM 15 GM TOPICAL SCH ×5 (01:11→23:33)
[2017-12-07] MEDS: cefTRIAXone INJ 2,000 MG in SODIUM CHLORIDE 0.9% INJ 100 ML IV SCH ×2 (01:18→15:34)
[2017-12-07] MEDS: HYDROmorphone HCL PF 2 MG/ML VIAL IV PUSH PRN ×5 (01:22→19:50)
[2017-12-07] MEDS: CHLORHEXIDINE GLUCONATE 2 % 1 PACK (2 CLOTHS) TOP SCH (04:00)
[2017-12-07] MEDS: ALBUMIN 25% INJ 100 ML IV SCH ×2 (05:47→16:46)
[2017-12-07] MEDS: VALPROIC ACID 250 MG CAP PO SCH ×3 (05:47→21:26)
[2017-12-07] MEDS: LACTATED RINGER'S 1000 ML INJ 1,000 ML IV SCH ×2 (05:47→17:45)
[2017-12-07] MEDS: metroNIDAZOLE 500 MG TAB PO SCH ×3 (05:47→21:26)
--- NOTE | 2017-12-07 06:55 | PD.ORT.PN ---
Subjective Subjective Remarks POD 8 s/p I&D right thigh with with skin grafting stable. awake and alert. reports he feels good. Objective Vitals Vital Signs Date Time Temp Pulse Resp B/P (MAP) Pulse Ox O2 Delivery O2 Flow Rate FiO2 12/07/17 00:00 96.8 82 16 131/84 (100) 92 12/06/17 20:00 97.4 85 20 128/80 (96) 95 12/06/17 16:00 97.1 83 19 133/93 (106) 95 12/06/17 12:00 96.7 84 18 144/87 (106) 96 12/06/17 08:05 Room Air 12/06/17 08:00 96.9 88 19 136/92 (107) 95 I/O 12/06/17 12/06/17 12/06/17 12/07/17 12/07/17 12/07/17 07:00 15:00 23:00 07:00 15:00 23:00 Intake Total 1200 ml 1700 ml 700 ml Output Total 3350 ml 3500 ml 6000 ml Balance -2150 ml -1800 ml -5300 ml Intake Oral 500 ml IV Total 1200 ml 1200 ml 700 ml Output Urine Total 3350 ml 3500 ml 6000 ml Stool Total 0 ml Result Diagram: 12/06/17 0725 12/06/17 0725 Imaging Last 24 hours Impressions Chest X-Ray 11/30/17 0600 Signed Impressions: Service Date/Time: Thursday, November 30, 2017 05:14 - CONCLUSION: No significant change has occurred. Oscar Mcmanus MD Objective Remarks Awake, alert, no acute distress RLE: dressings clean and dry. intact. nvi. LLE: harvest site clean and dry. xeroform in place. Assessment & Plan Assessment and Plan 1) Right Leg Infection s/p I&D with skin grafting right thigh - POD 8 - daily dressing changes of right leg with xeroform/4x4/BARRY -do not remove xeroform from harvest site on left leg. ok to change ABDs if saturated but do not remove xeroform. -WBAT -CM for DC planning -ortho surgeries complete -f/u with Dan or PA in 2 weeks Gigi Rodríguez/Medical Office Technologist KARYN Dec 07, 2017 06:55
--- NOTE | 2017-12-07 06:56 | HHI.FF ---
Face to Face Verification Diagnosis: (1) Necrotizing fasciitis Physical Therapy Gait training Right LE Weight Bearing: WB as tolerated Left LE Weight Bearing: WB as tolerated Nursing Dressing Changes: Daily dressing change, Gauze, Paper tape (LLE: do NOT remove xeroform on harvest site. ), Xeroform I have seen patient Bertrand Price on 12/07/17. My clinical findings support the need for the requested home health care services because: Ltd mobility - disease progression I certify that my clinical findings support that this patient is homebound because: Post-op weakness Gigi Rodríguez/Medical I D Sales PA Dec 07, 2017 06:56
[2017-12-07] MEDS: oxyCODONE/ACETAMINOPHEN 10 MG/325 MG TAB PO PRN ×5 (07:08→23:36)
[2017-12-07] MEDS: FAMOTIDINE 20 MG TAB PO SCH ×2 (07:57→21:26)
[2017-12-07] MEDS: ARIPiprazole 5 MG TAB PO SCH (07:57)
[2017-12-07] MEDS: hydrOXYzine HCL 50 MG TAB PO SCH ×2 (07:57→21:26)
[2017-12-07] MEDS: FLUCONAZOLE 200 MG TAB PO SCH (07:58)
[2017-12-07] MEDS: SODIUM CHLORIDE 0.9% FLUSH 10 ML FLUSH IV FLUSH SCH ×2 (07:58→19:33)
[2017-12-07] MEDS: risperiDONE ODT 3 MG TAB PO SCH ×2 (07:58→21:00)
[2017-12-07] MEDS: CHLORHEXIDINE 0.12% (ORAL KIT) 15 ML CUP MT SCH ×2 (08:00→19:33)
--- NOTE | 2017-12-07 08:45 | MP ---
cc: KIEL ALARCON M.D. DATE OF SURGERY: December 05, 2017 PREOPERATIVE DIAGNOSIS Rectal cancer with perforation. PROCEDURE Laparoscopic-assisted loop colostomy. POSTOPERATIVE DIAGNOSIS Laparoscopic-assisted loop colostomy. SURGEON Dr. Alarcon PROCEDURE The patient was placed in the supine position. After adequate general anesthesia his legs were placed in [place] stirrups and supported appropriately. Rectal exam confirmed a very large rectal cancer with quite a bit of fixation and possible perforation. The abdomen was then prepped with Betadine solution and draped in the usual sterile fashion. Initially a small infraumbilical incision was made and a Veress needle inserted establishing pneumoperitoneum. A 5 mm trocar was then placed under direct vision. A second trocar was placed in the suprapubic position in the midline. Laparoscopic evaluation showed no sign of any obvious malignancy within the abdomen. Liver appeared to be normal. Small bowel was pretty unremarkable. Colon was softly distended but no sign of any obstruction was seen. There was a very long sigmoid loop which was quite soft and pliable, suitable for a loop colostomy. A section of the distal loop was chosen. A circular stab wound was then created in the left midabdomen, taken down through the subcutaneous tissues opening up the anterior rectus fascia and splitting the rectus muscle and entering the posterior sheath and peritoneum under direct vision releasing the pneumoperitoneum. Chosen loop of rectosigmoid was easily brought up through the incision without tension and with good blood supply. Avascular plane was created in the mesentery and a colostomy bar placed. The trocar sites were then closed with interrupted Vicryl sutures for the subcutaneous tissues and Steri-Strips applied. The colostomy was then matured by creating a transverse colotomy and maturing both proximal and distal limbs of the stoma with interrupted chromic catgut stitches in a Chanelle fashion. At completion the stoma did appear to be viable and was patent through both limbs. Sterile colostomy appliance was fitted over the new stoma. The patient tolerated the procedure quite well and was brought to the recovery room in stable condition. Sponge and needle counts were correct at the end of the procedure. MD KETTY Diego/ALEJANDRO /10:48 PM /8:14 AM
--- NOTE | 2017-12-07 09:23 | HHI.PR ---
Subjective Remarks in no acute distress. pain seems to be fairly controlled. afebrile. Objective Vitals Vital Signs Date Time Temp Pulse Resp B/P (MAP) Pulse Ox O2 Delivery O2 Flow Rate FiO2 12/07/17 09:13 17 12/07/17 08:08 18 12/07/17 08:00 98.3 78 16 127/86 (100) 97 12/07/17 00:00 96.8 82 16 131/84 (100) 92 12/06/17 20:00 97.4 85 20 128/80 (96) 95 12/06/17 16:00 97.1 83 19 133/93 (106) 95 12/06/17 12:00 96.7 84 18 144/87 (106) 96 I/O 12/06/17 12/06/17 12/06/17 12/07/17 12/07/17 12/07/17 07:00 15:00 23:00 07:00 15:00 23:00 Intake Total 1200 ml 1700 ml 700 ml Output Total 3350 ml 3500 ml 6000 ml Balance -2150 ml -1800 ml -5300 ml Intake Oral 500 ml IV Total 1200 ml 1200 ml 700 ml Output Urine Total 3350 ml 3500 ml 6000 ml Stool Total 0 ml Result Diagram: 12/06/17 0725 12/06/17 0725 Imaging Last Impressions Chest X-Ray 11/30/17 0600 Signed Impressions: Service Date/Time: Thursday, November 30, 2017 05:14 - CONCLUSION: No significant change has occurred. Oscar Mcmanus MD Lower Extremity CT 11/15/17 0000 Signed Impressions: Service Date/Time: Wednesday, November 15, 2017 13:22 - CONCLUSION: Extensive fluid surrounding the quadriceps musculature of the right thigh as well as air within the collection anteriorly and laterally which raises the possibility of abscess/infection. Fluid is also noted extending into the region of the gluteus muscles on the right. Diffuse subcutaneous edema the right thigh is noted. Compartment syndrome should be ruled out. Jez Chowdhury MD Abdomen/Pelvis CT 11/15/17 0000 Signed Impressions: Service Date/Time: Wednesday, November 15, 2017 13:22 - CONCLUSION: The abnormal soft tissue mass now has compartmentalized fluid collections and absence of air in the right soft tissues of thigh and gluteal region. This probably represents improving inflammatory or infectious process such as abscess. Small bilateral pleural effusions persist with a new consolidation with air bronchogram in the left lower lobe. Ascitic fluid suggested in the pelvis Silvio Laguerre MD Lower Extremity Ultrasound 11/08/172011 Signed Impressions: Service Date/Time: Wednesday, November 08, 2017 20:41 - CONCLUSION: 1. Negative for deep venous thrombosis. There are mildly enlarged right inguinal lymph nodes. Bertrand Smalls MD Thoracic Spine MRI 11/08/17 0000 Signed Impressions: Service Date/Time: Wednesday, November 08, 2017 22:01 - CONCLUSION: 1. Small bilateral pleural effusions. 2. No signal abnormalities in the thoracic vertebral bodies and no evidence of focal disc disease. Jace Bird MD Lumbar Spine MRI 11/08/17 0000 Signed Impressions: Service Date/Time: Wednesday, November 08, 2017 22:01 - CONCLUSION: 1. No evidence of lumbar disc disease. 2. Soft tissue abnormality about the right gluteal region suggesting abscess with T2 prolongation and contrast enhancement ; this is incompletely included in the [id number] of the exam. 3. There is also abnormal signal within the marrow of the sacral and coccygeal marrow including contrast enhancement suggesting that the right thigh and gluteal abnormality may extend intraosseous, possibly osteomyelitis. Jace Bird MD Objective Remarks GENERAL: This is a well-nourished, well-developed patient, in no apparent distress. CARDIOVASCULAR: Regular rate and regular rhythm without murmurs, gallops, or rubs. RESPIRATORY: Clear to auscultation. Breath sounds equal bilaterally. No wheezes , rales, or rhonchi. GASTROINTESTINAL: Abdomen soft, non-tender, nondistended/ colostomy in place. MUSCULOSKELETAL: right thigh covered with clean dressing. NEURO: Alert & Oriented x4 to person, place, time, situation. Moves all ext x4 Procedures 11/09/17 incision and drainage, irrigation and debridement of right hip abscess with placement of VAC dressing 11/11/17 removal of VAC device, irrigation and debridement of right gluteal hip abscess with placement of drain and replacement of VAC 11/16/17 irrigation and debridement of pelvic infection and abscess, irrigation and debridement of right thigh abscess, right knee arthrotomy with irrigation and debridement 11/16/17 incision and drainage, irrigation and debridement of complex lower extremity abscess with removal of subcutaneous tissue, fascia, and muscle, with application of VAC device 11/18/17 irrigation and debridement of right pelvis and hip, irrigation and debridement of right thigh, irrigation and debridement of right knee 11/21/17 irrigation and debridement of right hip, right thigh, and right knee. Application of wound VAC dressing 11/24/17 irrigation and debridement of right hip, right thigh, right knee. Secondary wound closure, application of wound VAC 11/30/17 I&D with skin grafting right thigh 12/01/17 Colonoscopy 12/05/17 colostomy Medications and IVs Inpatient Medications Acetaminophen (Tylenol) 650 mg Q6H PRN PO PAIN 1-2 AND/OR FEVER >101F Last administered on 11/11/17at 04:42; Start 11/08/17 at 23:15 Albumin Human 100 ml @ 60 mls/hr Q12H IV Last administered on 12/07/17at 05:47 ; Start 12/04/17 at 17:00 Albuterol/ Ipratropium (Duoneb Neb) 1 ampule Q4HR NEB NEB Last administered on 11/17/17at 23:48; Start 11/14/17 at 00:00; Stop 11/17/17 at 23:59; Status DC Alprazolam (Xanax) 0.5 mg Q8H PRN PO anxiety Last administered on 12/05/17at 12: 09; Start 11/30/17 at 22:00 Aripiprazole (Abilify) 5 mg DAILY PO Last administered on 12/07/17at 07:57; Start 11/17/17 at 14:45 Cefepime HCl 2000 mg/Sodium Chloride 100 ml @ 200 mls/hr Q8H IV Last administered on 11/22/17at 08:32; Start 11/19/17 at 17:00; Stop 11/22/17 at 14:11; Status DC Ceftriaxone Sodium 2000 mg/ Sodium Chloride 100 ml @ 200 mls/hr Q12H IV Last administered on 12/07/17at 01:18; Start 12/05/17 at 15:00 Chlorhexidine Gluconate (Chlorhexidine 2% Cloth) 3 pack [employer] PRN TOPICAL SEE LABEL COMMENTS; Start 12/05/17 at 07:00; Stop 12/08/17 at 06:59 Chlorhexidine Gluconate (Peridex 0.12% Liq) 15 ml BID@08,20 MT Last administered on 12/07/17at 08:00; Start 11/09/17 at 20:00 Clindamycin/ Sodium Chloride 50 ml @ 100 mls/hr Q6H IV Last administered on at 12:14; Start 11/09/17 at 06:00; Stop 11/10/17 at 16:03; Status DC Dextrose 1,000 ml @ 75 mls/hr [id number] IV Last administered on 11/23/17at 21:43; Start 11/12/17 at 16:45; Stop 11/24/17 at 11:21; Status DC Divalproex Sodium (Depakote Dr) 500 mg BID PO Last administered on 11/09/17at 09 :22; Start 11/09/17 at 09:00; Stop 11/28/17 at 10:26; Status DC Divalproex Sodium (Depakote Er) 500 mg BID PO Last administered on 11/23/17at 08: 46; Start 11/17/17 at 14:45; Stop 11/28/17 at 10:26; Status DC Enoxaparin Sodium (Lovenox Inj) 40 mg Q24H SQ Last administered on 12/06/17at 17 :08; Start 12/06/17 at 17:00 Famotidine (Pepcid Inj) 20 mg Q12HR IV PUSH Last administered on 12/06/17at 08: 59; Start 11/09/17 at 09:00; Stop 12/06/17 at 19:26; Status DC Famotidine (Pepcid) 20 mg Q12HR PO Last administered on 12/07/17at 07:57; Start 12/06/17 at 21:00 Fentanyl (Duragesic 50 Mcg Patch.72 Hr) 1 patch ONCE ONCE T-DERMAL Last administered on 11/14/17at 14:10; Start 11/14/17 at 14:00; Stop 11/14/17 at 14:01 ; Status DC Fentanyl Citrate 250 ml @ 5 mls/hr TITRATE PRN IV SEDATION Last administered on 11/13/17at 06:06; Start 11/09/17 at 17:45; Stop 11/13/17 at 20:26; Status DC Fluconazole (Diflucan) 400 mg DAILY PO Last administered on 12/07/17at 07:58; Start 11/26/17 at 09:00 Fluconazole/ Sodium Chloride 200 ml @ 100 mls/hr Q24H IV Last administered on 11/25/17at 10:21; Start 11/20/17 at 10:00; Stop 11/25/17 at 13:59; Status DC Furosemide (Lasix Inj) 20 mg UNSCH X1 IV PUSH Last administered on 11/16/17at 08:28; Start 11/16/17 at 07:45; Stop 11/16/17 at 23:59; Status DC Heparin Sodium (Porcine) (Heparin Inj) 5,000 units Q8H SQ ; Start 11/08/17 at 23 :15; Stop 11/09/17 at 08:21; Status DC Hydromorphone HCl (Dilaudid Pf Inj) 0.5 mg Q3H PRN IV PUSH BREAKTHROUGH PAIN Last administered on 12/07/17at 08:43; Start 11/26/17 at 13:00 Hydroxyzine HCl (Atarax) 50 mg BID PO Last administered on 12/07/17at 07:57; Start 11/09/17 at 09:00 Insulin Human Regular (NovoLIN R INJ) See Protocol Table ... [employer] PRN SQ SEE PROTOCOL TABLE; Start 12/05/17 at 07:00; Stop 12/08/17 at 06:59 Lactated Ringer's 1,000 ml @ 30 mls/hr Q24H PRN IV SEE LABEL COMMENTS; Start at 07:00; Stop 12/08/17 at 06:59 Lorazepam (Ativan Inj) 4 mg ONCE ONCE IV PUSH Last administered on 11/15/17at 10:22; Start 11/15/17 at 10:15; Stop 11/15/17 at 10:16; Status DC Magnesium Citrate (Citroma Liq) 300 ml ONCE ONCE PO Last administered on at 19:19; Start 11/29/17 at 18:00; Stop 11/29/17 at 18:01; Status DC Magnesium Oxide (Mag-Ox) 800 mg UNSCH PRN PO For Magnesium 1.2 - 1.6 mg/dL; Start 11/14/17 at 14:00; Stop 11/23/17 at 19:30; Status DC Magnesium Sulfate 2 gm/Sodium Chloride 100 ml @ 50 mls/hr UNSCH PRN IV For Magnesium 1.2 - 1.6 mg/dL; Start 11/14/17 at 14:00; Stop 11/23/17 at 19:30; Status DC Magnesium Sulfate 4 gm/Sodium Chloride 100 ml @ 50 mls/hr UNSCH PRN IV For Magnesium 0.9 - 1.1 mg/dL; Start 11/14/17 at 14:00; Stop 11/23/17 at 19:29; Status DC Metoprolol Tartrate (Lopressor) 25 mg [employer] PRN PO SEE LABEL COMMENTS; Start 12/05/17 at 07:00; Stop 12/08/17 at 06:59 Metronidazole (Flagyl) 500 mg Q8HR PO Last administered on 12/07/17at 05:47; Start 11/25/17 at 14:00 Micafungin Sodium 150 mg/Sodium Chloride 100 ml @ 100 mls/hr Q24H IV Last administered on 11/20/17at 08:36; Start 11/15/17 at 09:00; Stop 11/20/17 at 09:08; Status DC Micafungin Sodium 1000 mg/Sodium Chloride 3,000 ml @ 0 mls/hr ONCE ONCE OTHER Last administered on 11/18/17at 14:15; Start 11/18/17 at 14:00; Stop 11/18/17 at 14:01; Status DC Miscellaneous Information ALL NURSING DEPARTME... UNSCH PRN .XX SEE LABEL COMMENTS; Start 12/05/17 at 18:00; Stop 12/06/17 at 17:59; Status DC Miscellaneous Information (RASS Change Order) 1 ea ONCE ONCE XX Last administered on 11/09/17at 17:19; Start 11/09/17 at 16:30; Stop 11/09/17 at 16:32 ; Status DC Nystatin (Mycostatin Cream) 1 applic Q6HR TOPICAL Last administered on at 05:47; Start 11/15/17 at 18:00 Ondansetron HCl (Zofran Inj) 4 mg Q6H PRN IV PUSH NAUSEA OR VOMITING; Start at 23:15 Oxycodone/ Acetaminophen (Percocet 5-325 Mg) 1 tab Q4H PRN PO PAIN SCALE 3 TO 6; Start 11/26/17 at 13:00 Oxycodone/ Acetaminophen (Percocet 10-325 Mg) 1 tab Q4H PRN PO PAIN SCALE 7 TO 10 Last administered on 12/07/17at 07:08; Start 11/26/17 at 13:00 Pharmacy Profile Note 0 ml @ 0 mls/hr UNSCH OTHER ; Start 11/15/17 at 17:15; Stop 11/20/17 at 09:08; Status DC Piperacillin Sod/ Tazobactam Sod 100 ml @ 200 mls/hr Q6H IV Last administered on 11/14/17at 03:26; Start 11/09/17 at 03:00; Stop 11/14/17 at 08:49; Status DC Potassium Phosphate (K-Phos) 2,000 mg UNSCH PRN PO/TUBE SEE LABEL COMMENTS; Start 11/14/17 at 14:00; Stop 11/23/17 at 19:30; Status DC Potassium Phosphate 30 mmol/ Sodium Chloride 260 ml @ 42 mls/hr UNSCH PRN IV SEE LABEL COMMENTS; Start 11/14/17 at 14:00; Stop 11/23/17 at 19:30; Status DC Potassium Bicarb/ Potassium Chloride (K-Lyte Cl Eff) 25 meq ONCE ONCE PO Last administered on 12/04/17at 13:21; Start 12/04/17 at 12:15; Stop 12/04/17 at 12:16; Status DC Potassium Chloride (KCl) 40 meq Q4H PO Last administered on 12/02/17at 15:43; Start 12/02/17 at 11:00; Stop 12/02/17 at 15:01; Status DC Povidone Iodine (Betadine 5% Antisepsis Kit) 1 applic [employer] PRN EACH NARE SEE LABEL COMMENTS; Start 12/05/17 at 07:00; Stop 12/08/17 at 06:59 Propofol 100 ml @ 2.166 mls/ hr TITRATE PRN IV SEDATION; Start 11/09/17 at 17: 45; Stop 11/13/17 at 20:26; Status DC Risperidone (risperDAL M-TAB) 3 mg Q12HR PO Last administered on 12/07/17at 07: 58; Start 11/13/17 at 21:00 Risperidone (risperDAL) 3 mg DAILY PO Last administered on 11/13/17at 08:02; Start 11/09/17 at 09:00; Status Future Hold Sodium Chloride 500 ml @ 30 mls/hr [id number] PRN IV SEE LABEL COMMENTS; Start at 07:00; Stop 12/08/17 at 06:59 Sodium Chloride (NS Flush) 2 ml BID IV FLUSH Last administered on 12/06/17at 01: 31; Start 11/09/17 at 09:00 Sodium Phosphate 30 mmol/Sodium Chloride 250 ml @ 42 mls/hr UNSCH PRN IV For Phosphorus < 2.5 mg/dL; Start 11/14/17 at 14:00; Stop 11/23/17 at 19:30; Status DC Temazepam (Restoril) 15 mg HS PRN PO INSOMNIA Last administered on 11/27/17at 00 :52; Start 11/08/17 at 23:15 Valproate Sodium 500 mg/Sodium Chloride 105 ml @ 105 mls/hr Q8HR IV Last administered on 11/28/17at 05:43; Start 11/13/17 at 22:00; Stop 11/28/17 at 10:26 ; Status DC Valproic Acid (Depakene Liq) 500 mg BID OG-TUBE Last administered on 11/13/17at 08:02; Start 11/09/17 at 23:00; Stop 11/28/17 at 10:26; Status DC Valproic Acid (Depakene) 500 mg Q8HR PO Last administered on 12/07/17at 05:47; Start 11/28/17 at 14:00 Vancomycin HCl 1000 mg/Sodium Chloride 250 ml @ 250 mls/hr Q12H IV Last administered on 11/09/17at 11:55; Start 11/09/17 at 00:00; Stop 11/09/17 at 13:52 ; Status DC Vancomycin HCl 1250 mg/Sodium Chloride 262.5 ml @ 262.5 mls/ hr ONCE ONCE IV Last administered on 11/15/17at 18:09; Start 11/15/17 at 17:15; Stop 11/15/17 at 18:14; Status DC Vancomycin HCl 1500 mg/Sodium Chloride 515 ml @ 257.5 mls/ hr Q12H IV Last administered on 11/20/17at 00:46; Start 11/16/17 at 12:00; Stop 11/20/17 at 09:08; Status DC Vancomycin HCl 4000 mg/ Tobramycin Sulfate 2400 mg/ Micafungin Sodium 1000 mg/ Sodium Chloride 3,000 ml @ 0 mls/hr [employer] IRRIGATION ; Start 11/21/17 at 07: 45 Vancomycin/Sodium Chloride 200 ml @ 200 mls/hr [employer] IV ; Start 11/08/17 at 21:30; Stop 11/09/17 at 13:53; Status DC A/P Assessment and Plan Severe sepsis Secondary to thigh abscess. Status post multiple surgeries Appreciate general surgery, orthopedic surgery and ID recommendations. S/p I&D with skin grafting right thigh 11/30. - Continue antibiotics per infectious disease. - continue wound vac/ wound care per ortho. Acute respiratory failure Resolved. Now on 2 L nasal cannula. CXR shows bibasilar patchy opacities. CXR stable. - oxygen and nebs as needed. Invasive adenocarcinoma of the rectum/ Anemia Patient has received a total of 8 units PRBCs during this hospitalization. Heme positive stools. GI consult appreciated. Mass was noted on colonoscopy. Pathology c/w mod diff invasive adenocarcinoma. Colorectal surgery, medical oncology and radiation oncology consults appreciated. - s/p diverting colostomy 12/05 per CRS. - oncology recommending to hold off on radiation until after chemo. - follow CBC and transfuse as needed. Schizoaffective disorder The pt is endorsing anxiety. - Continue Depakote, risperidone, Abilify. - Alprazolam as needed. Hypokalemia Improved. Anemia S/t above. Hemoglobin has been stable. - follow CBC. DVT prophylaxis: subq Lovenox. Discharge Planning when cleared by consultants. Christian Manzano MD Dec 07, 2017 09:22
[2017-12-07] MEDS: ENOXAPARIN SODIUM 40 MG/0.4 ML SYRINGE SQ SCH (17:14)
--- NOTE | 2017-12-07 19:19 | PD.ONC.PN ---
Subjective Subjective Remarks "I have to think about it" referring to treatment with Xeloda. Objective Data Date Time Temp Pulse Resp B/P (MAP) Pulse Ox O2 Delivery O2 Flow Rate FiO2 12/07/17 18:18 98 Nasal Cannula 2.00 12/07/17 16:05 17 12/07/17 16:00 97.3 103 18 127/86 (100) 96 12/07/17 15:51 18 12/07/17 12:00 96.8 86 17 136/93 (107) 98 12/07/17 09:28 97 Nasal Cannula 2.00 12/07/17 08:20 97 Room Air 12/07/17 08:00 98.3 78 16 127/86 (100) 97 12/07/17 00:00 96.8 82 16 131/84 (100) 92 12/06/17 20:00 97.4 85 20 128/80 (96) 95 12/07/17 12/07/17 12/07/17 06:59 14:59 22:59 Intake Total 700 ml 2510 ml Output Total 6000 ml 4300 ml Balance -5300 ml -1790 ml Result Diagram: 12/06/17 0725 12/06/17 0725 Administered Medications Medications (Trade) Dose Ordered Sig/Mega Route PRN Reason Start Time Stop Time Status Last Admin Dose Admin Hydroxyzine HCl (Atarax) 50 mg BID PO 11/09/17 09:00 12/07/17 07:57 Risperidone (risperDAL) 3 mg DAILY PO 11/09/17 09:00 Future Hold 11/13/17 08:02 Sodium Chloride (NS Flush) 2 ml UNSCH PRN IV FLUSH FLUSH AFTER USING IV ACCESS 11/08/17 23:15 12/06/17 05:25 Sodium Chloride (NS Flush) 2 ml BID IV FLUSH 11/09/17 09:00 12/06/17 01:31 Acetaminophen (Tylenol) 650 mg Q6H PRN PO PAIN 1-2 AND/OR FEVER >101F 11/08/17 23:15 11/11/17 04:42 Temazepam (Restoril) 15 mg HS PRN PO INSOMNIA 11/08/17 23:15 11/27/17 00:52 Albuterol/ Ipratropium (Duoneb Neb) 1 ampule Q2HR NEB PRN INH WHEEZING 11/08/17 23:15 11/20/17 14:49 Miscellaneous Information 1 Q361D XX 11/08/17 23:15 11/08/17 01:00 Chlorhexidine Gluconate (Chlorhexidine 2% Cloth) Taper DAILY@04 TOP 11/09/17 04:00 11/05/18 03:59 11/25/17 04:00 Chlorhexidine Gluconate (Peridex 0.12% Liq) 15 ml BID@08,20 MT 11/09/17 20:00 12/07/17 08:00 Risperidone (risperDAL M-TAB) 3 mg Q12HR PO 11/13/17 21:00 12/07/17 07:58 Nystatin (Mycostatin Cream) 1 applic Q6HR TOPICAL 11/15/17 18:00 12/07/17 17:50 Aripiprazole (Abilify) 5 mg DAILY PO 11/17/17 14:45 12/07/17 07:57 Metronidazole (Flagyl) 500 mg Q8HR PO 11/25/17 14:00 12/07/17 13:43 Fluconazole (Diflucan) 400 mg DAILY PO 11/26/17 09:00 12/07/17 07:58 Hydromorphone HCl (Dilaudid Pf Inj) 0.5 mg Q3H PRN IV PUSH BREAKTHROUGH PAIN 11/26/17 13:00 12/07/17 15:35 Oxycodone/ Acetaminophen (Percocet 10-325 Mg) 1 tab Q4H PRN PO PAIN SCALE 7 TO 10 11/26/17 13:00 12/07/17 18:42 Valproic Acid (Depakene) 500 mg Q8HR PO 11/28/17 14:00 12/07/17 13:43 Lactated Ringer's 1,000 ml @ 80 mls/hr [id number] IV 11/29/17 15:00 12/07/17 17:45 Alprazolam (Xanax) 0.5 mg Q8H PRN PO anxiety 11/30/17 22:00 12/05/17 12:09 Albumin Human 100 ml @ 60 mls/hr Q12H IV 12/04/17 17:00 12/07/17 16:46 Ceftriaxone Sodium 2000 mg/ Sodium Chloride 100 ml @ 200 mls/hr Q12H IV 12/05/17 15:00 12/07/17 15:34 Enoxaparin Sodium (Lovenox Inj) 40 mg Q24H SQ 12/06/17 17:00 12/07/17 17:14 Famotidine (Pepcid) 20 mg Q12HR PO 12/06/17 21:00 12/07/17 07:57 Objective Remarks GENERAL: pleasant calm male, lying in bed in nad. SKIN: Warm and dry. HEAD: Normocephalic. EYES: No injection or drainage. NECK: Supple, trachea midline. CARDIOVASCULAR: Regular rate and rhythm RESPIRATORY: Breath sounds equal bilaterally. No accessory muscle use. GASTROINTESTINAL: Abdomen soft, non-tender, nondistended. +ostomy bag in place. EXTREMITIES: No cyanosis NEUROLOGICAL: awake and alert, normal speech. Assessment/Plan Problem List: (1) Colorectal cancer ICD Codes: C19 - Malignant neoplasm of rectosigmoid junction Plan: --s/p diverting colostomy, 12/05/17 --will plan follow up in clinic. --will wait to start XRT until infections resolve. --fs faxed 12/07/17. Discussed with rad onc and ID. Concern from tx of the area with XRT would impact BM, cause BM suppression and possible impact healing. Discussed with patient option of tx with Xeloda which is not too myelosuppressive. It hopes to control his disease, while he continues to heal and take abx therapy. ID anticipate abx/healing for another 8 weeks. Pt offered information on Xeloda. Assessment 41y/o male with newly diagnosed colorectal cancer. history of schizoaffective, disorder, depression, anxiety. HPI (brought forward for continuity of care) presented to the emergency room on November 08, 2017 with sepsis. Ultrasound of the lower extremity showed mildly enlarged right inguinal lymph node. CT scan of the abdomen and pelvis showed abnormal appearance of the soft tissue of the proximal thigh and gluteal region with fluid and gas tracking between the rectus muscle and anterior thigh muscle. He also had small bilateral pleural effusions. He was referred to general surgery and came under the care of Dr. Bertrand Campos who performed incision and drainage and debridement of the right hip abscess with placement of a VAC dressing. has had repeated surgery for the right hip abscess and VAC dressing placement. He has involved infectious disease and ICU. He has had multiple procedures. Recently in 11/30/2017 he had incision and drainage with skin grafting from the right thigh. Wound VAC is still in place on the right leg. During the course of his hospitalization, he complained of constipation. The constipation pre-dated his hospital admission. He was noted to have a normocytic anemia and heme-positive stools. He has required red cell transfusions. Ultimately a colonoscopy was performed by Dr. Maza on 2017. The findings showed a friable fungating irregular rectal mass suspicious for malignancy. Biopsy of the rectum showed extensively necrotic invasive moderately differentiated adenocarcinoma. Staging evaluation including a repeat CT scan of the abdomen showed some ascitic fluid in the pelvis. There is a bilateral pleural effusion but no obvious site of distant metastatic disease. Plan 1. start Lovenox 40mg SQ qd for DVT prophylaxis: patient at high risk with malignancy + s/p surgery + largely immobilized. 2. antibiotics per ID. 3. provide information on Xeloda. Jihan Webber MD Dec 07, 2017 19:19
--- NOTE | 2017-12-07 19:53 | HHI.PR ---
Subjective Remarks C/R Surg POD #2 afebrile, VSS javier PO UO good - ?extra large Objective - Vital Signs Date Time Temp Pulse Resp B/P (MAP) Pulse Ox O2 Delivery O2 Flow Rate FiO2 12/07/17 18:18 98 Nasal Cannula 2.00 12/07/17 16:05 17 12/07/17 16:00 97.3 103 127/86 (100) Result Diagram: 12/06/17 0725 12/06/17 0725 Objective Remarks PE alert Abd - soft, non-tender, stoma pink A/P Assessment and Plan Imp: lg rectal cancer, perforated OOB per ortho chemoRT soon as stable DC plans PT Too Torres MD Dec 07, 2017 19:53
[2017-12-08] VITALS (7 sets, daily range): BP systolic 114–136; BP diastolic 70–87; PULSE 82–113; RESP 16–20; TEMP 96.9–98.5; O2SAT 93–100
[2017-12-08] MEDS: HYDROmorphone HCL PF 2 MG/ML VIAL IV PUSH PRN ×3 (01:59→21:32)
[2017-12-08] MEDS: LACTATED RINGER'S 1000 ML INJ 1,000 ML IV SCH ×2 (02:01→22:25)
[2017-12-08] MEDS: cefTRIAXone INJ 2,000 MG in SODIUM CHLORIDE 0.9% INJ 100 ML IV SCH ×2 (02:01→15:41)
[2017-12-08] MEDS: CHLORHEXIDINE GLUCONATE 2 % 1 PACK (2 CLOTHS) TOP SCH (04:00)
[2017-12-08] MEDS: oxyCODONE/ACETAMINOPHEN 10 MG/325 MG TAB PO PRN ×4 (04:05→20:14)
[2017-12-08] MEDS: ALBUMIN 25% INJ 100 ML IV SCH ×2 (04:05→18:20)
[2017-12-08] MEDS: metroNIDAZOLE 500 MG TAB PO SCH ×3 (05:55→20:12)
[2017-12-08] MEDS: VALPROIC ACID 250 MG CAP PO SCH ×3 (05:56→20:11)
[2017-12-08] MEDS: NYSTATIN 100,000 UNIT/GM CREAM 15 GM TOPICAL SCH ×3 (05:57→18:00)
[2017-12-08 06:11] LABS: AUTOMATED NEUTROPHIL # 4.8 TH/MM3 (1.8-7.7); BASOPHIL # 0.1 TH/MM3 (0-0.2); BASOPHIL % 1.3 % (0.0-2.0); EOSINOPHIL % 0.5 % (0.0-4.0); HEMOGLOBIN 7.7 GM/DL (13.0-17.0); LYMPH % 14.3 % (9.0-44.0); LYMPHOCYTE # 0.9 TH/MM3 (1.0-4.8); MEAN CELL VOLUME 83.9 FL (80.0-100.0); MEAN CORPUSCULAR HGB CONC 33.3 % (32.0-36.0); MEAN PLATELET VOLUME 7.3 FL (7.0-11.0); MONOCYTE # 0.7 TH/MM3 (0-0.9); NEUT % 72.9 % (16.0-70.0); PLATELET COUNT 231 TH/MM3 (150-450); RED BLOOD COUNT 2.75 MIL/MM3 (4.50-5.90); WHITE BLOOD COUNT 6.6 TH/MM3 (4.0-11.0)
--- NOTE | 2017-12-08 07:53 | HHI.PR ---
Subjective Remarks C/R Surg POD #3 afebrile, VSS javier PO UO good - ?extra large Objective - Vital Signs Date Time Temp Pulse Resp B/P (MAP) Pulse Ox O2 Delivery O2 Flow Rate FiO2 12/08/17 04:00 97.6 89 18 136/84 (101) 96 12/08/17 02:35 Room Air 12/07/17 18:18 2.00 Result Diagram: 12/08/17 0532 12/06/17 0725 Objective Remarks PE alert Abd - soft, non-tender, stoma pink A/P Assessment and Plan Imp: lg rectal cancer, perforated OOB per ortho chemoRT soon as stable DC plans PT Too Torres MD Dec 08, 2017 07:53
[2017-12-08] MEDS: CHLORHEXIDINE 0.12% (ORAL KIT) 15 ML CUP MT SCH ×2 (07:59→19:37)
[2017-12-08] MEDS: SODIUM CHLORIDE 0.9% FLUSH 10 ML FLUSH IV FLUSH SCH ×2 (08:40→19:37)
[2017-12-08] MEDS: FLUCONAZOLE 200 MG TAB PO SCH (08:40)
[2017-12-08] MEDS: hydrOXYzine HCL 50 MG TAB PO SCH ×2 (08:40→20:12)
[2017-12-08] MEDS: risperiDONE ODT 3 MG TAB PO SCH ×2 (08:40→20:12)
[2017-12-08] MEDS: ARIPiprazole 5 MG TAB PO SCH (08:40)
[2017-12-08] MEDS: FAMOTIDINE 20 MG TAB PO SCH ×2 (08:40→20:12)
[2017-12-08] MEDS: ALPRAZolam 0.5 MG TAB PO PRN ×2 (08:40→20:19)
--- NOTE | 2017-12-08 09:23 | HHI.PR ---
Subjective Remarks in no acute distress. pain is controlled. no new complaints. Objective Vitals Vital Signs Date Time Temp Pulse Resp B/P (MAP) Pulse Ox O2 Delivery O2 Flow Rate FiO2 12/08/17 08:00 97.9 82 16 126/84 (98) 95 12/08/17 04:00 97.6 89 18 136/84 (101) 96 12/08/17 02:35 Room Air 12/08/17 00:00 97.7 89 19 132/87 (102) 95 12/07/17 20:00 97.8 105 20 129/86 (100) 95 12/07/17 18:18 98 Nasal Cannula 2.00 12/07/17 16:05 17 12/07/17 16:00 97.3 103 18 127/86 (100) 96 12/07/17 15:51 18 12/07/17 12:00 96.8 86 17 136/93 (107) 98 12/07/17 09:28 97 Nasal Cannula 2.00 I/O 12/07/17 12/07/17 12/07/17 12/08/17 12/08/17 12/08/17 07:00 15:00 23:00 07:00 15:00 23:00 Intake Total 700 ml 2510 ml 200 ml Output Total 6000 ml 6250 ml 1550 ml Balance -5300 ml -3740 ml -1350 ml Intake Oral 2510 ml IV Total 700 ml 200 ml Output Urine Total 6000 ml 5925 ml 1400 ml Stool Total 325 ml 150 ml # Bowel Movements 1 Result Diagram: 12/08/17 0532 12/06/17 0725 Imaging Last Impressions Chest X-Ray 11/30/17 0600 Signed Impressions: Service Date/Time: Thursday, November 30, 2017 05:14 - CONCLUSION: No significant change has occurred. Oscar Mcmanus MD Lower Extremity CT 11/15/17 0000 Signed Impressions: Service Date/Time: Wednesday, November 15, 2017 13:22 - CONCLUSION: Extensive fluid surrounding the quadriceps musculature of the right thigh as well as air within the collection anteriorly and laterally which raises the possibility of abscess/infection. Fluid is also noted extending into the region of the gluteus muscles on the right. Diffuse subcutaneous edema the right thigh is noted. Compartment syndrome should be ruled out. Jez Chowdhury MD Abdomen/Pelvis CT 11/15/17 0000 Signed Impressions: Service Date/Time: Wednesday, November 15, 2017 13:22 - CONCLUSION: The abnormal soft tissue mass now has compartmentalized fluid collections and absence of air in the right soft tissues of thigh and gluteal region. This probably represents improving inflammatory or infectious process such as abscess. Small bilateral pleural effusions persist with a new consolidation with air bronchogram in the left lower lobe. Ascitic fluid suggested in the pelvis Silvio Laguerre MD Lower Extremity Ultrasound 11/08/172011 Signed Impressions: Service Date/Time: Wednesday, November 08, 2017 20:41 - CONCLUSION: 1. Negative for deep venous thrombosis. There are mildly enlarged right inguinal lymph nodes. Bertrand Smalls MD Thoracic Spine MRI 11/08/17 Signed Impressions: Service Date/Time: Wednesday, November 08, 2017 22:01 - CONCLUSION: 1. Small bilateral pleural effusions. 2. No signal abnormalities in the thoracic vertebral bodies and no evidence of focal disc disease. Jace Bird MD Lumbar Spine MRI 11/08/17 Signed Impressions: Service Date/Time: Wednesday, November 08, 2017 22:01 - CONCLUSION: 1. No evidence of lumbar disc disease. 2. Soft tissue abnormality about the right gluteal region suggesting abscess with T2 prolongation and contrast enhancement ; this is incompletely included in the [id number] of the exam. 3. There is also abnormal signal within the marrow of the sacral and coccygeal marrow including contrast enhancement suggesting that the right thigh and gluteal abnormality may extend intraosseous, possibly osteomyelitis. Jace Bird MD Objective Remarks GENERAL: This is a well-nourished, well-developed patient, in no apparent distress. CARDIOVASCULAR: Regular rate and regular rhythm without murmurs, gallops, or rubs. RESPIRATORY: Clear to auscultation. Breath sounds equal bilaterally. No wheezes , rales, or rhonchi. GASTROINTESTINAL: Abdomen soft, non-tender, nondistended/ colostomy in place. MUSCULOSKELETAL: right thigh covered with clean dressing. NEURO: Alert & Oriented x4 to person, place, time, situation. Moves all ext x4 Procedures 11/09/17 incision and drainage, irrigation and debridement of right hip abscess with placement of VAC dressing 11/11/17 removal of VAC device, irrigation and debridement of right gluteal hip abscess with placement of drain and replacement of VAC 11/16/17 irrigation and debridement of pelvic infection and abscess, irrigation and debridement of right thigh abscess, right knee arthrotomy with irrigation and debridement 11/16/17 incision and drainage, irrigation and debridement of complex lower extremity abscess with removal of subcutaneous tissue, fascia, and muscle, with application of VAC device 11/18/17 irrigation and debridement of right pelvis and hip, irrigation and debridement of right thigh, irrigation and debridement of right knee 11/21/17 irrigation and debridement of right hip, right thigh, and right knee. Application of wound VAC dressing 11/24/17 irrigation and debridement of right hip, right thigh, right knee. Secondary wound closure, application of wound VAC 11/30/17 I&D with skin grafting right thigh 12/01/17 Colonoscopy 12/05/17 colostomy Medications and IVs Inpatient Medications Acetaminophen (Tylenol) 650 mg Q6H PRN PO PAIN 1-2 AND/OR FEVER >101F Last administered on 11/11/17at 04:42; Start 11/08/17 at 23:15 Albumin Human 100 ml @ 60 mls/hr Q12H IV Last administered on 12/08/17at 04:05 ; Start 12/04/17 at 17:00 Albuterol/ Ipratropium (Duoneb Neb) 1 ampule Q4HR NEB NEB Last administered on 11/17/17at 23:48; Start 11/14/17 at 00:00; Stop 11/17/17 at 23:59; Status DC Alprazolam (Xanax) 0.5 mg Q8H PRN PO anxiety Last administered on 12/08/17at 08: 40; Start 11/30/17 at 22:00 Aripiprazole (Abilify) 5 mg DAILY PO Last administered on 12/08/17at 08:40; Start 11/17/17 at 14:45 Cefepime HCl 2000 mg/Sodium Chloride 100 ml @ 200 mls/hr Q8H IV Last administered on 11/22/17at 08:32; Start 11/19/17 at 17:00; Stop 11/22/17 at 14:11; Status DC Ceftriaxone Sodium 2000 mg/ Sodium Chloride 100 ml @ 200 mls/hr Q12H IV Last administered on 12/08/17at 02:01; Start 12/05/17 at 15:00 Chlorhexidine Gluconate (Chlorhexidine 2% Cloth) 3 pack SALES PROMOTION REPRESENTATIVE PRN TOPICAL SEE LABEL COMMENTS; Start 12/05/17 at 07:00; Stop 12/08/17 at 06:59; Status DC Chlorhexidine Gluconate (Peridex 0.12% Liq) 15 ml BID@08,20 MT Last administered on 12/07/17at 08:00; Start 11/09/17 at 20:00 Clindamycin/ Sodium Chloride 50 ml @ 100 mls/hr Q6H IV Last administered on at 12:14; Start 11/09/17 at 06:00; Stop 11/10/17 at 16:03; Status DC Dextrose 1,000 ml @ 75 mls/hr [id number] IV Last administered on 11/23/17at 21:43; Start 11/12/17 at 16:45; Stop 11/24/17 at 11:21; Status DC Divalproex Sodium (Depakote Dr) 500 mg BID PO Last administered on 11/09/17at 09 :22; Start 11/09/17 at 09:00; Stop 11/28/17 at 10:26; Status DC Divalproex Sodium (Depakote Er) 500 mg BID PO Last administered on 11/23/17at 08: 46; Start 11/17/17 at 14:45; Stop 11/28/17 at 10:26; Status DC Enoxaparin Sodium (Lovenox Inj) 40 mg Q24H SQ Last administered on 12/07/17at 17 :14; Start 12/06/17 at 17:00 Epoetin Prasanna (Epogen Inj) 20,000 units DAILY@1400 SQ ; Start 12/08/17 at 14:00; Stop 12/10/17 at 14:00 Famotidine (Pepcid Inj) 20 mg Q12HR IV PUSH Last administered on 12/06/17at 08: 59; Start 11/09/17 at 09:00; Stop 12/06/17 at 19:26; Status DC Famotidine (Pepcid) 20 mg Q12HR PO Last administered on 12/08/17at 08:40; Start 12/06/17 at 21:00 Fentanyl (Duragesic 50 Mcg Patch.72 Hr) 1 patch ONCE ONCE T-DERMAL Last administered on 11/14/17at 14:10; Start 11/14/17 at 14:00; Stop 11/14/17 at 14:01 ; Status DC Fentanyl Citrate 250 ml @ 5 mls/hr TITRATE PRN IV SEDATION Last administered on 11/13/17at 06:06; Start 11/09/17 at 17:45; Stop 11/13/17 at 20:26; Status DC Fluconazole (Diflucan) 400 mg DAILY PO Last administered on 12/08/17at 08:40; Start 11/26/17 at 09:00 Fluconazole/ Sodium Chloride 200 ml @ 100 mls/hr Q24H IV Last administered on 11/25/17at 10:21; Start 11/20/17 at 10:00; Stop 11/25/17 at 13:59; Status DC Furosemide (Lasix Inj) 20 mg UNSCH X1 IV PUSH Last administered on 11/16/17at 08:28; Start 11/16/17 at 07:45; Stop 11/16/17 at 23:59; Status DC Heparin Sodium (Porcine) (Heparin Inj) 5,000 units Q8H SQ ; Start 11/08/17 at 23 :15; Stop 11/09/17 at 08:21; Status DC Hydromorphone HCl (Dilaudid Pf Inj) 0.5 mg Q3H PRN IV PUSH BREAKTHROUGH PAIN Last administered on 12/08/17at 01:59; Start 11/26/17 at 13:00 Hydroxyzine HCl (Atarax) 50 mg BID PO Last administered on 12/08/17at 08:40; Start 11/09/17 at 09:00 Insulin Human Regular (NovoLIN R INJ) See Protocol Table ... SALES PROMOTION REPRESENTATIVE PRN SQ SEE PROTOCOL TABLE; Start 12/05/17 at 07:00; Stop 12/08/17 at 06:59; Status DC Lactated Ringer's 1,000 ml @ 30 mls/hr Q24H PRN IV SEE LABEL COMMENTS; Start at 07:00; Stop 12/08/17 at 06:59; Status DC Lorazepam (Ativan Inj) 4 mg ONCE ONCE IV PUSH Last administered on 11/15/17at 10:22; Start 11/15/17 at 10:15; Stop 11/15/17 at 10:16; Status DC Magnesium Citrate (Citroma Liq) 300 ml ONCE ONCE PO Last administered on at 19:19; Start 11/29/17 at 18:00; Stop 11/29/17 at 18:01; Status DC Magnesium Oxide (Mag-Ox) 800 mg UNSCH PRN PO For Magnesium 1.2 - 1.6 mg/dL; Start 11/14/17 at 14:00; Stop 11/23/17 at 19:30; Status DC Magnesium Sulfate 2 gm/Sodium Chloride 100 ml @ 50 mls/hr UNSCH PRN IV For Magnesium 1.2 - 1.6 mg/dL; Start 11/14/17 at 14:00; Stop 11/23/17 at 19:30; Status DC Magnesium Sulfate 4 gm/Sodium Chloride 100 ml @ 50 mls/hr UNSCH PRN IV For Magnesium 0.9 - 1.1 mg/dL; Start 11/14/17 at 14:00; Stop 11/23/17 at 19:29; Status DC Metoprolol Tartrate (Lopressor) 25 mg SALES PROMOTION REPRESENTATIVE PRN PO SEE LABEL COMMENTS; Start 12/05/17 at 07:00; Stop 12/08/17 at 06:59; Status DC Metronidazole (Flagyl) 500 mg Q8HR PO Last administered on 12/08/17at 05:55; Start 11/25/17 at 14:00 Micafungin Sodium 150 mg/Sodium Chloride 100 ml @ 100 mls/hr Q24H IV Last administered on 11/20/17at 08:36; Start 11/15/17 at 09:00; Stop 11/20/17 at 09:08; Status DC Micafungin Sodium 1000 mg/Sodium Chloride 3,000 ml @ 0 mls/hr ONCE ONCE OTHER Last administered on 11/18/17at 14:15; Start 11/18/17 at 14:00; Stop 11/18/17 at 14:01; Status DC Miscellaneous Information ALL NURSING DEPARTME... UNSCH PRN .XX SEE LABEL COMMENTS; Start 12/05/17 at 18:00; Stop 12/06/17 at 17:59; Status DC Miscellaneous Information (RASS Change Order) 1 ea ONCE ONCE XX Last administered on 11/09/17at 17:19; Start 11/09/17 at 16:30; Stop 11/09/17 at 16:32 ; Status DC Nystatin (Mycostatin Cream) 1 applic Q6HR TOPICAL Last administered on at 05:57; Start 11/15/17 at 18:00 Ondansetron HCl (Zofran Inj) 4 mg Q6H PRN IV PUSH NAUSEA OR VOMITING; Start at 23:15 Oxycodone/ Acetaminophen (Percocet 5-325 Mg) 1 tab Q4H PRN PO PAIN SCALE 3 TO 6; Start 11/26/17 at 13:00 Oxycodone/ Acetaminophen (Percocet 10-325 Mg) 1 tab Q4H PRN PO PAIN SCALE 7 TO 10 Last administered on 12/08/17at 04:05; Start 11/26/17 at 13:00 Pharmacy Profile Note 0 ml @ 0 mls/hr UNSCH OTHER ; Start 11/15/17 at 17:15; Stop 11/20/17 at 09:08; Status DC Piperacillin Sod/ Tazobactam Sod 100 ml @ 200 mls/hr Q6H IV Last administered on 11/14/17at 03:26; Start 11/09/17 at 03:00; Stop 11/14/17 at 08:49; Status DC Potassium Phosphate (K-Phos) 2,000 mg UNSCH PRN PO/TUBE SEE LABEL COMMENTS; Start 11/14/17 at 14:00; Stop 11/23/17 at 19:30; Status DC Potassium Phosphate 30 mmol/ Sodium Chloride 260 ml @ 42 mls/hr UNSCH PRN IV SEE LABEL COMMENTS; Start 11/14/17 at 14:00; Stop 11/23/17 at 19:30; Status DC Potassium Bicarb/ Potassium Chloride (K-Lyte Cl Eff) 25 meq ONCE ONCE PO Last administered on 12/04/17at 13:21; Start 12/04/17 at 12:15; Stop 12/04/17 at 12:16; Status DC Potassium Chloride (KCl) 40 meq Q4H PO Last administered on 12/02/17at 15:43; Start 12/02/17 at 11:00; Stop 12/02/17 at 15:01; Status DC Povidone Iodine (Betadine 5% Antisepsis Kit) 1 applic SALES PROMOTION REPRESENTATIVE PRN EACH NARE SEE LABEL COMMENTS; Start 12/05/17 at 07:00; Stop 12/08/17 at 06:59; Status DC Propofol 100 ml @ 2.166 mls/ hr TITRATE PRN IV SEDATION; Start 11/09/17 at 17: 45; Stop 11/13/17 at 20:26; Status DC Risperidone (risperDAL M-TAB) 3 mg Q12HR PO Last administered on 12/08/17at 08: 40; Start 11/13/17 at 21:00 Risperidone (risperDAL) 3 mg DAILY PO Last administered on 11/13/17at 08:02; Start 11/09/17 at 09:00; Status Future Hold Sodium Chloride 500 ml @ 30 mls/hr [id number] PRN IV SEE LABEL COMMENTS; Start at 07:00; Stop 12/08/17 at 06:59; Status DC Sodium Chloride (NS Flush) 2 ml BID IV FLUSH Last administered on 12/06/17at 01: 31; Start 11/09/17 at 09:00 Sodium Phosphate 30 mmol/Sodium Chloride 250 ml @ 42 mls/hr UNSCH PRN IV For Phosphorus < 2.5 mg/dL; Start 11/14/17 at 14:00; Stop 11/23/17 at 19:30; Status DC Temazepam (Restoril) 15 mg HS PRN PO INSOMNIA Last administered on 11/27/17at 00 :52; Start 11/08/17 at 23:15 Valproate Sodium 500 mg/Sodium Chloride 105 ml @ 105 mls/hr Q8HR IV Last administered on 11/28/17at 05:43; Start 11/13/17 at 22:00; Stop 11/28/17 at 10:26 ; Status DC Valproic Acid (Depakene Liq) 500 mg BID OG-TUBE Last administered on 11/13/17at 08:02; Start 11/09/17 at 23:00; Stop 11/28/17 at 10:26; Status DC Valproic Acid (Depakene) 500 mg Q8HR PO Last administered on 12/08/17at 05:56; Start 11/28/17 at 14:00 Vancomycin HCl 1000 mg/Sodium Chloride 250 ml @ 250 mls/hr Q12H IV Last administered on 11/09/17at 11:55; Start 11/09/17 at 00:00; Stop 11/09/17 at 13:52 ; Status DC Vancomycin HCl 1250 mg/Sodium Chloride 262.5 ml @ 262.5 mls/ hr ONCE ONCE IV Last administered on 11/15/17at 18:09; Start 11/15/17 at 17:15; Stop 11/15/17 at 18:14; Status DC Vancomycin HCl 1500 mg/Sodium Chloride 515 ml @ 257.5 mls/ hr Q12H IV Last administered on 11/20/17at 00:46; Start 11/16/17 at 12:00; Stop 11/20/17 at 09:08; Status DC Vancomycin HCl 4000 mg/ Tobramycin Sulfate 2400 mg/ Micafungin Sodium 1000 mg/ Sodium Chloride 3,000 ml @ 0 mls/hr SALES PROMOTION REPRESENTATIVE IRRIGATION ; Start 11/21/17 at 07: 45 Vancomycin/Sodium Chloride 200 ml @ 200 mls/hr SALES PROMOTION REPRESENTATIVE IV ; Start 11/08/17 at 21:30; Stop 11/09/17 at 13:53; Status DC A/P Assessment and Plan Severe sepsis Secondary to thigh abscess. Status post multiple surgeries Appreciate general surgery, orthopedic surgery and ID recommendations. S/p I&D with skin grafting right thigh 11/30. - Continue antibiotics per infectious disease. - continue wound care per ortho. Acute respiratory failure Resolved. Now on 2 L nasal cannula. CXR shows bibasilar patchy opacities. CXR stable. - oxygen and nebs as needed. Invasive adenocarcinoma of the rectum/ Anemia Patient has received a total of 8 units PRBCs during this hospitalization. Heme positive stools. GI consult appreciated. Mass was noted on colonoscopy. Pathology c/w mod diff invasive adenocarcinoma. Colorectal surgery, medical oncology and radiation oncology consults appreciated. - s/p diverting colostomy 12/05 per CRS. - oncology recommending to hold off on radiation until after chemo. - follow CBC and transfuse as needed. Schizoaffective disorder The pt is endorsing anxiety. - Continue Depakote, risperidone, Abilify. - Alprazolam as needed. Hypokalemia Improved. Anemia S/t above. Hemoglobin has been stable. - follow CBC. DVT prophylaxis: subq Lovenox. Discharge Planning when cleared by consultants. Christian Manzano MD Dec 08, 2017 09:23
--- NOTE | 2017-12-08 14:09 | HHI.IDPN ---
Subjective Subjective Remarks is a 41 y/o CM with PMHx of Schizoaffective disorder on Haldol IM injections in bilateral buttocks. Patient reports getting these as outpatient by unknown doctor (different doctor each time per patient). Approx 1 month back after he received his last Haldol IM shot in right buttock patient noticed pain and swelling and decreased range of motion. Patient continued to receive Haldol shots in left buttock due to pain in right buttock. Patient reports his ability to move around has declined since last 1 week and he needs help with ADL phuong dressing himself due to significant pain on right lower extremity. Patient reports fevers chills and night sweats for the last 1 week prior to admission and significant worsening pain and swelling of his right lower extremity. Patient's past medical history is also significant for right dorsum of the foot marsh as a child as well as neuropathy. Per review of records it appears the patient's mother has reported that he hasn't been feeling well since July and has presented to another emergency department related to back and hip pain. The patient was diagnosed with fecal impaction and severe constipation was seen by pipe line gauger. Patient reports that he was on a bowel regimen to help with her constipation and that has been a challenge to maintain continence. Patient has had incontinence of stool and intermittently incontinence of urine since July. With this background patient presents to the emergency department for evaluation of difficulty walking, generalized weakness, weight loss loss of appetite. Reportedly while in the triage area his blood pressure was in the 70s systolic. Patient also reported abdominal pain in the lower quadrants radiating to his bilateral lower extremity but more so on the right. Patient reported nausea decrease in appetite and loss of about 20 pound weight in the last 1 month. Patient denies any recent intravenous drug abuse. Patient does endorse to receiving intramuscular Haldol in bilateral buttocks. The last right buttock Haldol injection was approximately 1 month back. Patient reports having weakness of bilateral lower extremities more so on the right especially because of sharp shooting pains down his right leg. In the emergency department patient received a total of 4 L of IV fluids as a part of severe sepsis workup and management. Cultures drawn at admission are currently pending. A CT scan of the abdomen showed appearance of soft tissue mass of the proximal thigh and gluteal region with fluid and gas tracking down the rectus muscle into the anterior thigh muscle. This is concerning for infectious or necrotic process. Infectious disease consulted for evaluation and management of severe sepsis, right buttock abscess possible osteomyelitis. Overnight events reviewed with RN No fevers No rash No diarrhea colostomy bag in place and has liquid stool. Antibiotics Current Medications Medications (Trade) Dose Ordered Sig/Mega Route Start Time Stop Time Status Last Admin (Atarax) 50 mg BID PO 11/09/17 09:00 12/08/17 08:40 (risperDAL) 3 mg DAILY PO 11/09/17 09:00 Future Hold 11/13/17 08:02 (NS Flush) 2 ml UNSCH PRN IV FLUSH 11/08/17 23:15 12/06/17 05:25 (NS Flush) 2 ml BID IV FLUSH 11/09/17 09:00 12/06/17 01:31 (Tylenol) 650 mg Q6H PRN PO 11/08/17 23:15 11/11/17 04:42 (Zofran Inj) 4 mg Q6H PRN IV PUSH 11/08/17 23:15 (Restoril) 15 mg HS PRN PO 11/08/17 23:15 11/27/17 00:52 (Duoneb Neb) 1 ampule Q2HR NEB PRN INH 11/08/17 23:15 11/20/17 14:49 Miscellaneous Information 1 Q361D XX 11/08/17 23:15 11/08/17 01:00 (Chlorhexidine 2% Cloth) Taper DAILY@04 TOP 11/09/17 04:00 11/05/18 03:59 11/25/17 04:00 (Chlorhexidine 2% Cloth) 3 pack UNSCH PRN TOP 11/08/17 23:15 (Peridex 0.12% Liq) 15 ml BID@08,20 MT 11/09/17 20:00 12/07/17 08:00 (risperDAL M-TAB) 3 mg Q12HR PO 11/13/17 21:00 12/08/17 08:40 (Mycostatin Cream) 1 applic Q6HR TOPICAL 11/15/17 18:00 12/08/17 11:13 (Abilify) 5 mg DAILY PO 11/17/17 14:45 12/08/17 08:40 Vancomycin HCl 4000 mg/ Tobramycin Sulfate 2400 mg/ Micafungin Sodium 1000 mg/Sodium Chloride 3,000 ml @ 0 mls/hr SCHEDULE SUPERVISOR IRRIGATION 11/21/17 07:45 (Flagyl) 500 mg Q8HR PO 11/25/17 14:00 12/08/17 05:55 (Diflucan) 400 mg DAILY PO 11/26/17 09:00 12/08/17 08:40 (Dilaudid Pf Inj) 0.5 mg Q3H PRN IV PUSH 11/26/17 13:00 12/08/17 01:59 (Percocet 5-325 Mg) 1 tab Q4H PRN PO 11/26/17 13:00 (Percocet 10-325 Mg) 1 tab Q4H PRN PO 11/26/17 13:00 12/08/17 11:12 (Depakene) 500 mg Q8HR PO 11/28/17 14:00 12/08/17 05:56 Lactated Ringer's 1,000 ml @ 60 mls/hr [id number] IV 11/29/17 15:00 12/08/17 02:01 (Xanax) 0.5 mg Q8H PRN PO 11/30/17 22:00 12/08/17 08:40 Albumin Human 100 ml @ 60 mls/hr Q12H IV 12/04/17 17:00 12/08/17 04:05 Ceftriaxone Sodium 2000 mg/ Sodium Chloride 100 ml @ 200 mls/hr Q12H IV 12/05/17 15:00 12/08/17 02:01 (Lovenox Inj) 40 mg Q24H SQ 12/06/17 17:00 12/07/17 17:14 (Pepcid) 20 mg Q12HR PO 12/06/17 21:00 12/08/17 08:40 (Epogen Inj) 20,000 units DAILY@1400 SQ 12/08/17 14:00 12/10/17 14:00 Lines Line sites with no evidence of infection. Past Medical History Neuropathy involving the right leg h/o marsh right foot dorsum as a child. Schizoaffective disorder, Depressions Anxiety Past Surgical History None per patient. Allergies: Coded Allergies: diphenhydramine (Verified Adverse Reaction, Unknown, 11/08/17) Objective . Vital Signs Date Time Temp Pulse Resp B/P (MAP) Pulse Ox O2 Delivery O2 Flow Rate FiO2 12/08/17 12:00 96.9 107 17 114/85 (95) 95 12/08/17 08:00 97.9 82 16 126/84 (98) 95 12/08/17 04:00 97.6 89 18 136/84 (101) 96 12/08/17 02:35 Room Air 12/08/17 00:00 97.7 89 19 132/87 (102) 95 12/07/17 20:00 97.8 105 20 129/86 (100) 95 12/07/17 18:18 98 Nasal Cannula 2.00 12/07/17 16:05 17 12/07/17 16:00 97.3 103 18 127/86 (100) 96 12/07/17 15:51 18 . Laboratory Tests Test 12/08/17 05:32 White Blood Count 6.6 TH/MM3 Red Blood Count 2.75 MIL/MM3 Hemoglobin 7.7 GM/DL Hematocrit 23.0 % Mean Corpuscular Volume 83.9 FL Mean Corpuscular Hemoglobin 28.0 PG Mean Corpuscular Hemoglobin Concent 33.3 % Red Cell Distribution Width 20.0 % Platelet Count 231 TH/MM3 Mean Platelet Volume 7.3 FL Neutrophils (%) (Auto) 72.9 % Lymphocytes (%) (Auto) 14.3 % Monocytes (%) (Auto) 11.0 % Eosinophils (%) (Auto) 0.5 % Basophils (%) (Auto) 1.3 % Neutrophils # (Auto) 4.8 TH/MM3 Lymphocytes # (Auto) 0.9 TH/MM3 Monocytes # (Auto) 0.7 TH/MM3 Eosinophils # (Auto) 0.0 TH/MM3 Basophils # (Auto) 0.1 TH/MM3 CBC Comment DIFF FINAL Differential Comment Imaging Lower Extremity CT 11/15/17 0000 Signed Impressions: Service Date/Time: Wednesday, November 15, 2017 13:22 - CONCLUSION: Extensive fluid surrounding the quadriceps musculature of the right thigh as well as air within the collection anteriorly and laterally which raises the possibility of abscess/infection. Fluid is also noted extending into the region of the gluteus muscles on the right. Diffuse subcutaneous edema the right thigh is noted. Compartment syndrome should be ruled out. Jez Chowdhury MD Abdomen/Pelvis CT 11/15/17 0000 Signed Impressions: Service Date/Time: Wednesday, November 15, 2017 13:22 - CONCLUSION: The abnormal soft tissue mass now has compartmentalized fluid collections and absence of air in the right soft tissues of thigh and gluteal region. This probably represents improving inflammatory or infectious process such as abscess. Small bilateral pleural effusions persist with a new consolidation with air bronchogram in the left lower lobe. Ascitic fluid suggested in the pelvis Silvio Laguerre MD Chest X-Ray 11/14/17 0600 Signed Impressions: Service Date/Time: Tuesday, November 14, 2017 04:22 - CONCLUSION: 1. Left basilar airspace disease similar to November 12. Bertrand Smalls MD Lower Extremity Ultrasound 11/08/172011 Signed Impressions: Service Date/Time: Wednesday, November 08, 2017 20:41 - CONCLUSION: 1. Negative for deep venous thrombosis. There are mildly enlarged right inguinal lymph nodes. Bertrand Smalls MD Thoracic Spine MRI 11/08/17 0000 Signed Impressions: Service Date/Time: Wednesday, November 08, 2017 22:01 - CONCLUSION: 1. Small bilateral pleural effusions. 2. No signal abnormalities in the thoracic vertebral bodies and no evidence of focal disc disease. Jace Bird MD Lumbar Spine MRI 11/08/17 0000 Signed Impressions: Service Date/Time: Wednesday, November 08, 2017 22:01 - CONCLUSION: 1. No evidence of lumbar disc disease. 2. Soft tissue abnormality about the right gluteal region suggesting abscess with T2 prolongation and contrast enhancement ; this is incompletely included in the [id number] of the exam. 3. There is also abnormal signal within the marrow of the sacral and coccygeal marrow including contrast enhancement suggesting that the right thigh and gluteal abnormality may extend intraosseous, possibly osteomyelitis. Jace Bird MD Last Impressions Chest X-Ray 11/09/17 0000 Signed Impressions: Service Date/Time: Thursday, November 09, 2017 16:23 - CONCLUSION: Minimal infiltrate left base new from comparison study. Rodrick Ch MD FACR Lower Extremity Ultrasound 11/08/172011 Signed Impressions: Service Date/Time: Wednesday, November 08, 2017 20:41 - CONCLUSION: 1. Negative for deep venous thrombosis. There are mildly enlarged right inguinal lymph nodes. Bertrand Smalls MD Abdomen/Pelvis CT 11/08/172011 Signed Impressions: Service Date/Time: Wednesday, November 08, 2017 22:54 - CONCLUSION: 1. Abnormal appearance of the soft tissues of the proximal thigh and gluteal region with fluid and gas tracking between the rectus muscles and the anterior thigh muscles. No focal abnormal areas of enhancement. The combination of fluid and gas suggests either an infectious or necrotic process. 2. Nonobstructing small calcified stone mid pole left kidney and multiple left renal cysts. 3. Small bilateral pleural effusions. Jace Bird MD Thoracic Spine MRI 11/08/17 Signed Impressions: Service Date/Time: Wednesday, November 08, 2017 22:01 - CONCLUSION: 1. Small bilateral pleural effusions. 2. No signal abnormalities in the thoracic vertebral bodies and no evidence of focal disc disease. Jace Bird MD Lumbar Spine MRI 11/08/17 Signed Impressions: Service Date/Time: Wednesday, November 08, 2017 22:01 - CONCLUSION: 1. No evidence of lumbar disc disease. 2. Soft tissue abnormality about the right gluteal region suggesting abscess with T2 prolongation and contrast enhancement ; this is incompletely included in the [id number] of the exam. 3. There is also abnormal signal within the marrow of the sacral and coccygeal marrow including contrast enhancement suggesting that the right thigh and gluteal abnormality may extend intraosseous, possibly osteomyelitis. Jace Bird MD Physical Exam GENERAL: Alert, well nourished. SKIN: Warm and dry, no generalized rash HEAD: Atraumatic. Normocephalic. No temporal or scalp tenderness. EYES: Pupils equal round and reactive. Extraocular motions intact. No scleral icterus. No injection or drainage. ENT: Dry oral mucosa, no nasal discharge NECK: Trachea midline. Supple, nontender, no meningeal signs. CARDIOVASCULAR: HS audible. RESPIRATORY: Diffuse rhonchi bilaterally GASTROINTESTINAL: Abdomen soft, Colostomy in place with liquid stool. MUSCULOSKELETAL: RLE with dressing in place. NEUROLOGICAL: Awake and alert and interactive. Grossly nonfocal Psych cooperative IV line sites with no e.o infection. Assessment & Plan Remarks Severe sepsis present on admission. Staph coag neg bacteremia: 1 out of 4 bottles likely contaminant. E.coli and Strep, mixed anaerobes (beta lactamase positive) and Paz albicans , right thigh abscess/osteomyelitis, extending to pelvis/hip and R knee - S/P multiple dbridements Possible sacral osteomyelitis Schizoaffective disorder receives IM Haldol injections in the buttocks. Lower extremity neuropathy. Weight loss, loss of appetite Diarrhea check stool C. difficile Recommendations: Continue Ceftriaxone IV Change Flagyl to oral Change Diflucan to oral Follow cultures Follow clinically. d.w pt I will be off 12/09/2017 to 12/11/2017. Other ID MDs covering for me. Please check with [facility] call center. María Upton MD Dec 08, 2017 14:09
[2017-12-08] MEDS: EPOETIN ALFA 20,000 UNITS/ML VIAL SQ SCH (15:41)
--- NOTE | 2017-12-08 17:45 | PD.WCN.NOT ---
Wound Consult Description: New Ostomy Teaching per Dr Torres and Dr Manzano Communicated with: LUIS Santoyo Patient Patient mother at bedside Recommendation: Observe ostomy for moist pink/red color Release air by opening pouch at the flange Empty pouch of effluent when 1/3-1/2 full Additional Information: Patient seen today on with LUIS MontelongoWCC and LUIS Santoyo at bedside for pouch change and stoma assessment with teaching. Ostomy Type: Colostomy (Loop) Surgeon: Too Torres MD Date of Surgery: Dec 05, 2017 Complete: Education materials (Left at bedside) Educated patient on: Emptying pouch when 1/3-1/2 full of effluent (stool) Releasing air from pouch Changing entire appliance tomorrow Color of stoma Output of stoma When to notify a physician regarding stoma color and lack of output Additional information Patient seen on with patient mom in room who requested that we speak outside patients room. Patient mom stated that the patients aunt was coming to surprise him next week and that she also has an ostomy. It was mentioned that this would bring up his spirits that seem to be low right now. Patients mom left for health technical writer to assess patient stoma. Patient requested pouch be changed out today without changing out wafer. Pouch was removed by health technical writer and replaced after wiping down the wafer and low pressure adaptor in place. New pouch that was placed has a clip at the bottom to prevent leaks and was demonstrated to patient. Stoma is red, moist, moderately protruding, oval, with lumen noted in center and functioning with brown soft liquid/effluent. [facility] Dec 08, 2017 17:45
[2017-12-08] MEDS: ENOXAPARIN SODIUM 40 MG/0.4 ML SYRINGE SQ SCH (18:20)
--- NOTE | 2017-12-08 22:59 | HHI.PR ---
Subjective Remarks C/R Surg POD #3 afebrile, VSS javier PO UO good - voiding stoma working Objective - Vital Signs Date Time Temp Pulse Resp B/P (MAP) Pulse Ox O2 Delivery O2 Flow Rate FiO2 12/08/17 20:00 98.5 88 20 121/70 (87) 93 12/08/17 17:30 Nasal Cannula 2.00 Result Diagram: 12/08/17 0532 12/06/17 0725 Objective Remarks PE alert Abd - soft, non-tender, stoma pink A/P Assessment and Plan Imp: lg rectal cancer, perforated OOB per ortho chemoRT soon as stable DC plans PT Too Torres MD Dec 08, 2017 22:59
[2017-12-09] VITALS: BP 121/72; PULSE 86; RESP 20; TEMP 98.4; O2SAT 96
[2017-12-09] MEDS: cefTRIAXone INJ 2,000 MG in SODIUM CHLORIDE 0.9% INJ 100 ML IV SCH ×2 (02:41→17:02)
[2017-12-09] MEDS: CHLORHEXIDINE GLUCONATE 2 % 1 PACK (2 CLOTHS) TOP SCH (02:53)
[2017-12-09] MEDS: HYDROmorphone HCL PF 2 MG/ML VIAL IV PUSH PRN ×3 (02:56→21:03)
[2017-12-09] MEDS: metroNIDAZOLE 500 MG TAB PO SCH ×3 (05:14→21:07)
[2017-12-09] MEDS: VALPROIC ACID 250 MG CAP PO SCH ×3 (05:14→21:07)
[2017-12-09] MEDS: ALBUMIN 25% INJ 100 ML IV SCH ×2 (05:15→19:23)
[2017-12-09] MEDS: oxyCODONE/ACETAMINOPHEN 10 MG/325 MG TAB PO PRN ×4 (05:18→23:40)
[2017-12-09] MEDS: NYSTATIN 100,000 UNIT/GM CREAM 15 GM TOPICAL SCH ×5 (06:00→23:40)
[2017-12-09 08:00] VITALS: BP 141/96; PULSE 97; RESP 19; TEMP 97.9; O2SAT 95
[2017-12-09] MEDS: CHLORHEXIDINE 0.12% (ORAL KIT) 15 ML CUP MT SCH ×2 (08:00→20:00)
--- NOTE | 2017-12-09 08:51 | HHI.PR ---
Subjective Remarks POD#4 s/p diverting colostomy, rectal cancer comfortable, tolerating PO Objective Vital Signs Date Time Temp Pulse Resp B/P (MAP) Pulse Ox O2 Delivery O2 Flow Rate FiO2 12/09/17 00:00 98.4 86 20 121/72 (88) 96 12/08/17 20:00 98.5 88 20 121/70 (87) 93 12/08/17 19:00 Room Air 12/08/17 17:30 99 Nasal Cannula 2.00 12/08/17 16:00 97.4 113 17 120/85 (97) 100 12/08/17 12:00 96.9 107 17 114/85 (95) 95 I/O 12/08/17 12/08/17 12/08/17 12/09/17 12/09/17 12/09/17 07:00 15:00 23:00 07:00 15:00 23:00 Intake Total 200 ml 4466 ml 720 ml Output Total 1550 ml 3450 ml 2800 ml Balance -1350 ml 1016 ml -2080 ml Intake Oral 3266 ml 720 ml IV Total 200 ml 1200 ml Output Urine Total 1400 ml 3225 ml 2750 ml Stool Total 150 ml 225 ml 50 ml Result Diagram: 12/08/17 0532 12/06/17 0725 Objective Remarks Abdomen soft, nondistended, tender Stoma pink, bar in place Assessment and Plan Assessment and Plan Discharge planning, will need [facility] for new stoma Shannen Oneil MD Dec 09, 2017 08:51
[2017-12-09] MEDS: SODIUM CHLORIDE 0.9% FLUSH 10 ML FLUSH IV FLUSH SCH ×2 (09:00→21:03)
[2017-12-09] MEDS: FAMOTIDINE 20 MG TAB PO SCH ×2 (09:54→21:07)
[2017-12-09] MEDS: ARIPiprazole 5 MG TAB PO SCH (09:54)
[2017-12-09] MEDS: hydrOXYzine HCL 50 MG TAB PO SCH ×2 (09:55→21:07)
[2017-12-09] MEDS: FLUCONAZOLE 200 MG TAB PO SCH (09:55)
[2017-12-09] MEDS: risperiDONE ODT 3 MG TAB PO SCH ×2 (09:56→21:08)
[2017-12-09 09:59] VITALS: O2SAT 95
--- NOTE | 2017-12-09 10:09 | HHI.PR ---
Subjective Remarks in no acute distress. pain is controlled. no new complaints. d/w the RN. Objective Vitals Vital Signs Date Time Temp Pulse Resp B/P (MAP) Pulse Ox O2 Delivery O2 Flow Rate FiO2 12/09/17 09:59 95 Nasal Cannula 2.00 12/09/17 08:00 97.9 97 19 141/96 (111) 95 12/09/17 00:00 98.4 86 20 121/72 (88) 96 12/08/17 20:00 98.5 88 20 121/70 (87) 93 12/08/17 19:00 Room Air 12/08/17 17:30 99 Nasal Cannula 2.00 12/08/17 16:00 97.4 113 17 120/85 (97) 100 12/08/17 12:00 96.9 107 17 114/85 (95) 95 I/O 12/08/17 12/08/17 12/08/17 12/09/17 12/09/17 12/09/17 07:00 15:00 23:00 07:00 15:00 23:00 Intake Total 200 ml 4466 ml 720 ml Output Total 1550 ml 3450 ml 2800 ml Balance -1350 ml 1016 ml -2080 ml Intake Oral 3266 ml 720 ml IV Total 200 ml 1200 ml Output Urine Total 1400 ml 3225 ml 2750 ml Stool Total 150 ml 225 ml 50 ml Result Diagram: 12/08/17 0532 12/06/17 0725 Imaging Last Impressions Chest X-Ray 11/30/17 0600 Signed Impressions: Service Date/Time: Thursday, November 30, 2017 05:14 - CONCLUSION: No significant change has occurred. Oscar Mcmanus MD Lower Extremity CT 11/15/17 0000 Signed Impressions: Service Date/Time: Wednesday, November 15, 2017 13:22 - CONCLUSION: Extensive fluid surrounding the quadriceps musculature of the right thigh as well as air within the collection anteriorly and laterally which raises the possibility of abscess/infection. Fluid is also noted extending into the region of the gluteus muscles on the right. Diffuse subcutaneous edema the right thigh is noted. Compartment syndrome should be ruled out. Jez Chowdhury MD Abdomen/Pelvis CT 11/15/17 0000 Signed Impressions: Service Date/Time: Wednesday, November 15, 2017 13:22 - CONCLUSION: The abnormal soft tissue mass now has compartmentalized fluid collections and absence of air in the right soft tissues of thigh and gluteal region. This probably represents improving inflammatory or infectious process such as abscess. Small bilateral pleural effusions persist with a new consolidation with air bronchogram in the left lower lobe. Ascitic fluid suggested in the pelvis Silvio Laguerre MD Lower Extremity Ultrasound 11/08/172011 Signed Impressions: Service Date/Time: Wednesday, November 08, 2017 20:41 - CONCLUSION: 1. Negative for deep venous thrombosis. There are mildly enlarged right inguinal lymph nodes. Bertrand Smalls MD Thoracic Spine MRI 11/08/17 0000 Signed Impressions: Service Date/Time: Wednesday, November 08, 2017 22:01 - CONCLUSION: 1. Small bilateral pleural effusions. 2. No signal abnormalities in the thoracic vertebral bodies and no evidence of focal disc disease. Jace Bird MD Lumbar Spine MRI 11/08/17 0000 Signed Impressions: Service Date/Time: Wednesday, November 08, 2017 22:01 - CONCLUSION: 1. No evidence of lumbar disc disease. 2. Soft tissue abnormality about the right gluteal region suggesting abscess with T2 prolongation and contrast enhancement ; this is incompletely included in the [id number] of the exam. 3. There is also abnormal signal within the marrow of the sacral and coccygeal marrow including contrast enhancement suggesting that the right thigh and gluteal abnormality may extend intraosseous, possibly osteomyelitis. Jace Bird MD Objective Remarks GENERAL: This is a well-nourished, well-developed patient, in no apparent distress. CARDIOVASCULAR: Regular rate and regular rhythm without murmurs, gallops, or rubs. RESPIRATORY: Clear to auscultation. Breath sounds equal bilaterally. No wheezes , rales, or rhonchi. GASTROINTESTINAL: Abdomen soft, non-tender, nondistended/ colostomy in place. MUSCULOSKELETAL: right thigh covered with clean dressing. NEURO: Alert & Oriented x4 to person, place, time, situation. Moves all ext x4 Procedures 11/09/17 incision and drainage, irrigation and debridement of right hip abscess with placement of VAC dressing 11/11/17 removal of VAC device, irrigation and debridement of right gluteal hip abscess with placement of drain and replacement of VAC 11/16/17 irrigation and debridement of pelvic infection and abscess, irrigation and debridement of right thigh abscess, right knee arthrotomy with irrigation and debridement 11/16/17 incision and drainage, irrigation and debridement of complex lower extremity abscess with removal of subcutaneous tissue, fascia, and muscle, with application of VAC device 11/18/17 irrigation and debridement of right pelvis and hip, irrigation and debridement of right thigh, irrigation and debridement of right knee 11/21/17 irrigation and debridement of right hip, right thigh, and right knee. Application of wound VAC dressing 11/24/17 irrigation and debridement of right hip, right thigh, right knee. Secondary wound closure, application of wound VAC 11/30/17 I&D with skin grafting right thigh 12/01/17 Colonoscopy 12/05/17 colostomy Medications and IVs Inpatient Medications Acetaminophen (Tylenol) 650 mg Q6H PRN PO PAIN 1-2 AND/OR FEVER >101F Last administered on 11/11/17at 04:42; Start 11/08/17 at 23:15 Albumin Human 100 ml @ 60 mls/hr Q12H IV Last administered on 12/09/17at 05:15 ; Start 12/04/17 at 17:00 Albuterol/ Ipratropium (Duoneb Neb) 1 ampule Q4HR NEB NEB Last administered on 11/17/17at 23:48; Start 11/14/17 at 00:00; Stop 11/17/17 at 23:59; Status DC Alprazolam (Xanax) 0.5 mg Q8H PRN PO anxiety Last administered on 12/08/17at 20: 19; Start 11/30/17 at 22:00 Aripiprazole (Abilify) 5 mg DAILY PO Last administered on 12/09/17at 09:54; Start 11/17/17 at 14:45 Cefepime HCl 2000 mg/Sodium Chloride 100 ml @ 200 mls/hr Q8H IV Last administered on 11/22/17at 08:32; Start 11/19/17 at 17:00; Stop 11/22/17 at 14:11; Status DC Ceftriaxone Sodium 2000 mg/ Sodium Chloride 100 ml @ 200 mls/hr Q12H IV Last administered on 12/09/17at 02:41; Start 12/05/17 at 15:00 Chlorhexidine Gluconate (Chlorhexidine 2% Cloth) 3 pack [employer] PRN TOPICAL SEE LABEL COMMENTS; Start 12/05/17 at 07:00; Stop 12/08/17 at 06:59; Status DC Chlorhexidine Gluconate (Peridex 0.12% Liq) 15 ml BID@08,20 MT Last administered on 12/07/17at 08:00; Start 11/09/17 at 20:00 Clindamycin/ Sodium Chloride 50 ml @ 100 mls/hr Q6H IV Last administered on at 12:14; Start 11/09/17 at 06:00; Stop 11/10/17 at 16:03; Status DC Dextrose 1,000 ml @ 75 mls/hr [id number] IV Last administered on 11/23/17at 21:43; Start 11/12/17 at 16:45; Stop 11/24/17 at 11:21; Status DC Divalproex Sodium (Depakote Dr) 500 mg BID PO Last administered on 11/09/17at 09 :22; Start 11/09/17 at 09:00; Stop 11/28/17 at 10:26; Status DC Divalproex Sodium (Depakote Er) 500 mg BID PO Last administered on 11/23/17at 08: 46; Start 11/17/17 at 14:45; Stop 11/28/17 at 10:26; Status DC Enoxaparin Sodium (Lovenox Inj) 40 mg Q24H SQ Last administered on 12/08/17at 18 :20; Start 12/06/17 at 17:00 Epoetin Prasanna (Epogen Inj) 20,000 units DAILY@1400 SQ Last administered on at 15:41; Start 12/08/17 at 14:00; Stop 12/10/17 at 14:00 Famotidine (Pepcid Inj) 20 mg Q12HR IV PUSH Last administered on 12/06/17at 08: 59; Start 11/09/17 at 09:00; Stop 12/06/17 at 19:26; Status DC Famotidine (Pepcid) 20 mg Q12HR PO Last administered on 12/09/17at 09:54; Start 12/06/17 at 21:00 Fentanyl (Duragesic 50 Mcg Patch.72 Hr) 1 patch ONCE ONCE T-DERMAL Last administered on 11/14/17at 14:10; Start 11/14/17 at 14:00; Stop 11/14/17 at 14:01 ; Status DC Fentanyl Citrate 250 ml @ 5 mls/hr TITRATE PRN IV SEDATION Last administered on 11/13/17at 06:06; Start 11/09/17 at 17:45; Stop 11/13/17 at 20:26; Status DC Fluconazole (Diflucan) 400 mg DAILY PO Last administered on 12/09/17at 09:55; Start 11/26/17 at 09:00 Fluconazole/ Sodium Chloride 200 ml @ 100 mls/hr Q24H IV Last administered on 11/25/17at 10:21; Start 11/20/17 at 10:00; Stop 11/25/17 at 13:59; Status DC Furosemide (Lasix Inj) 20 mg UNSCH X1 IV PUSH Last administered on 11/16/17at 08:28; Start 11/16/17 at 07:45; Stop 11/16/17 at 23:59; Status DC Heparin Sodium (Porcine) (Heparin Inj) 5,000 units Q8H SQ ; Start 11/08/17 at 23 :15; Stop 11/09/17 at 08:21; Status DC Hydromorphone HCl (Dilaudid Pf Inj) 0.5 mg Q3H PRN IV PUSH BREAKTHROUGH PAIN Last administered on 12/09/17at 07:23; Start 11/26/17 at 13:00 Hydroxyzine HCl (Atarax) 50 mg BID PO Last administered on 12/09/17at 09:55; Start 11/09/17 at 09:00 Insulin Human Regular (NovoLIN R INJ) See Protocol Table ... [employer] PRN SQ SEE PROTOCOL TABLE; Start 12/05/17 at 07:00; Stop 12/08/17 at 06:59; Status DC Lactated Ringer's 1,000 ml @ 30 mls/hr Q24H PRN IV SEE LABEL COMMENTS; Start at 07:00; Stop 12/08/17 at 06:59; Status DC Lorazepam (Ativan Inj) 4 mg ONCE ONCE IV PUSH Last administered on 11/15/17at 10:22; Start 11/15/17 at 10:15; Stop 11/15/17 at 10:16; Status DC Magnesium Citrate (Citroma Liq) 300 ml ONCE ONCE PO Last administered on at 19:19; Start 11/29/17 at 18:00; Stop 11/29/17 at 18:01; Status DC Magnesium Oxide (Mag-Ox) 800 mg UNSCH PRN PO For Magnesium 1.2 - 1.6 mg/dL; Start 11/14/17 at 14:00; Stop 11/23/17 at 19:30; Status DC Magnesium Sulfate 2 gm/Sodium Chloride 100 ml @ 50 mls/hr UNSCH PRN IV For Magnesium 1.2 - 1.6 mg/dL; Start 11/14/17 at 14:00; Stop 11/23/17 at 19:30; Status DC Magnesium Sulfate 4 gm/Sodium Chloride 100 ml @ 50 mls/hr UNSCH PRN IV For Magnesium 0.9 - 1.1 mg/dL; Start 11/14/17 at 14:00; Stop 11/23/17 at 19:29; Status DC Metoprolol Tartrate (Lopressor) 25 mg [employer] PRN PO SEE LABEL COMMENTS; Start 12/05/17 at 07:00; Stop 12/08/17 at 06:59; Status DC Metronidazole (Flagyl) 500 mg Q8HR PO Last administered on 12/09/17at 05:14; Start 11/25/17 at 14:00 Micafungin Sodium 150 mg/Sodium Chloride 100 ml @ 100 mls/hr Q24H IV Last administered on 11/20/17at 08:36; Start 11/15/17 at 09:00; Stop 11/20/17 at 09:08; Status DC Micafungin Sodium 1000 mg/Sodium Chloride 3,000 ml @ 0 mls/hr ONCE ONCE OTHER Last administered on 11/18/17at 14:15; Start 11/18/17 at 14:00; Stop 11/18/17 at 14:01; Status DC Miscellaneous Information ALL NURSING DEPARTME... UNSCH PRN .XX SEE LABEL COMMENTS; Start 12/05/17 at 18:00; Stop 12/06/17 at 17:59; Status DC Miscellaneous Information (RASS Change Order) 1 ea ONCE ONCE XX Last administered on 11/09/17at 17:19; Start 11/09/17 at 16:30; Stop 11/09/17 at 16:32 ; Status DC Nystatin (Mycostatin Cream) 1 applic Q6HR TOPICAL Last administered on at 06:00; Start 11/15/17 at 18:00 Ondansetron HCl (Zofran Inj) 4 mg Q6H PRN IV PUSH NAUSEA OR VOMITING; Start at 23:15 Oxycodone/ Acetaminophen (Percocet 5-325 Mg) 1 tab Q4H PRN PO PAIN SCALE 3 TO 6; Start 11/26/17 at 13:00 Oxycodone/ Acetaminophen (Percocet 10-325 Mg) 1 tab Q4H PRN PO PAIN SCALE 7 TO 10 Last administered on 12/09/17at 05:18; Start 11/26/17 at 13:00 Pharmacy Profile Note 0 ml @ 0 mls/hr UNSCH OTHER ; Start 11/15/17 at 17:15; Stop 11/20/17 at 09:08; Status DC Piperacillin Sod/ Tazobactam Sod 100 ml @ 200 mls/hr Q6H IV Last administered on 11/14/17at 03:26; Start 11/09/17 at 03:00; Stop 11/14/17 at 08:49; Status DC Potassium Phosphate (K-Phos) 2,000 mg UNSCH PRN PO/TUBE SEE LABEL COMMENTS; Start 11/14/17 at 14:00; Stop 11/23/17 at 19:30; Status DC Potassium Phosphate 30 mmol/ Sodium Chloride 260 ml @ 42 mls/hr UNSCH PRN IV SEE LABEL COMMENTS; Start 11/14/17 at 14:00; Stop 11/23/17 at 19:30; Status DC Potassium Bicarb/ Potassium Chloride (K-Lyte Cl Eff) 25 meq ONCE ONCE PO Last administered on 12/04/17at 13:21; Start 12/04/17 at 12:15; Stop 12/04/17 at 12:16; Status DC Potassium Chloride (KCl) 40 meq Q4H PO Last administered on 12/02/17at 15:43; Start 12/02/17 at 11:00; Stop 12/02/17 at 15:01; Status DC Povidone Iodine (Betadine 5% Antisepsis Kit) 1 applic [employer] PRN EACH NARE SEE LABEL COMMENTS; Start 12/05/17 at 07:00; Stop 12/08/17 at 06:59; Status DC Propofol 100 ml @ 2.166 mls/ hr TITRATE PRN IV SEDATION; Start 11/09/17 at 17: 45; Stop 11/13/17 at 20:26; Status DC Risperidone (risperDAL M-TAB) 3 mg Q12HR PO Last administered on 12/09/17at 09: 56; Start 11/13/17 at 21:00 Risperidone (risperDAL) 3 mg DAILY PO Last administered on 11/13/17at 08:02; Start 11/09/17 at 09:00; Status Future Hold Sodium Chloride 500 ml @ 30 mls/hr [id number] PRN IV SEE LABEL COMMENTS; Start at 07:00; Stop 12/08/17 at 06:59; Status DC Sodium Chloride (NS Flush) 2 ml BID IV FLUSH Last administered on 12/06/17at 01: 31; Start 11/09/17 at 09:00 Sodium Phosphate 30 mmol/Sodium Chloride 250 ml @ 42 mls/hr UNSCH PRN IV For Phosphorus < 2.5 mg/dL; Start 11/14/17 at 14:00; Stop 11/23/17 at 19:30; Status DC Temazepam (Restoril) 15 mg HS PRN PO INSOMNIA Last administered on 11/27/17at 00 :52; Start 11/08/17 at 23:15 Valproate Sodium 500 mg/Sodium Chloride 105 ml @ 105 mls/hr Q8HR IV Last administered on 11/28/17at 05:43; Start 11/13/17 at 22:00; Stop 11/28/17 at 10:26 ; Status DC Valproic Acid (Depakene Liq) 500 mg BID OG-TUBE Last administered on 11/13/17at 08:02; Start 11/09/17 at 23:00; Stop 11/28/17 at 10:26; Status DC Valproic Acid (Depakene) 500 mg Q8HR PO Last administered on 12/09/17at 05:14; Start 11/28/17 at 14:00 Vancomycin HCl 1000 mg/Sodium Chloride 250 ml @ 250 mls/hr Q12H IV Last administered on 11/09/17at 11:55; Start 11/09/17 at 00:00; Stop 11/09/17 at 13:52 ; Status DC Vancomycin HCl 1250 mg/Sodium Chloride 262.5 ml @ 262.5 mls/ hr ONCE ONCE IV Last administered on 11/15/17at 18:09; Start 11/15/17 at 17:15; Stop 11/15/17 at 18:14; Status DC Vancomycin HCl 1500 mg/Sodium Chloride 515 ml @ 257.5 mls/ hr Q12H IV Last administered on 11/20/17at 00:46; Start 11/16/17 at 12:00; Stop 11/20/17 at 09:08; Status DC Vancomycin HCl 4000 mg/ Tobramycin Sulfate 2400 mg/ Micafungin Sodium 1000 mg/ Sodium Chloride 3,000 ml @ 0 mls/hr [employer] IRRIGATION ; Start 11/21/17 at 07: 45 Vancomycin/Sodium Chloride 200 ml @ 200 mls/hr [employer] IV ; Start 11/08/17 at 21:30; Stop 11/09/17 at 13:53; Status DC A/P Assessment and Plan Severe sepsis Secondary to thigh abscess. Status post multiple surgeries Appreciate general surgery, orthopedic surgery and ID recommendations. S/p I&D with skin grafting right thigh 11/30. - Continue antibiotics per infectious disease. - continue wound care per ortho. Acute respiratory failure Resolved. Now on 2 L nasal cannula. CXR shows bibasilar patchy opacities. CXR stable. - oxygen and nebs as needed. Invasive adenocarcinoma of the rectum/ Anemia Patient has received a total of 8 units PRBCs during this hospitalization. Heme positive stools. GI consult appreciated. Mass was noted on colonoscopy. Pathology c/w mod diff invasive adenocarcinoma. Colorectal surgery, medical oncology and radiation oncology consults appreciated. - s/p diverting colostomy 12/05 per CRS. - oncology recommending to hold off on radiation until after chemo. - follow CBC and transfuse as needed. Schizoaffective disorder The pt is endorsing anxiety. - Continue Depakote, risperidone, Abilify. - Alprazolam as needed. Hypokalemia Improved. Anemia S/t above. Hemoglobin has been stable. - follow CBC. DVT prophylaxis: subq Lovenox. Discharge Planning dc planning; home with [facility] when strong enough and cleared by PT. no rehab option. d/w the case management. Christian Manzano MD Dec 09, 2017 10:09
[2017-12-09 12:00] VITALS: BP 128/93; PULSE 86; RESP 19; TEMP 98.6; O2SAT 99
--- NOTE | 2017-12-09 13:16 | PD.ONC.PN ---
Subjective Subjective Remarks Afebrile overnight. Patient resting in room. He is slightly agitated. he states he had a fight with his mother this morning. Objective Data Date Time Temp Pulse Resp B/P (MAP) Pulse Ox O2 Delivery O2 Flow Rate FiO2 12/09/17 12:00 98.6 86 19 128/93 (105) 99 12/09/17 09:59 95 Nasal Cannula 2.00 12/09/17 08:00 97.9 97 19 141/96 (111) 95 12/09/17 00:00 98.4 86 20 121/72 (88) 96 12/08/17 20:00 98.5 88 20 121/70 (87) 93 12/08/17 19:00 Room Air 12/08/17 17:30 99 Nasal Cannula 2.00 12/08/17 16:00 97.4 113 17 120/85 (97) 100 12/09/17 12/09/17 12/09/17 07:00 15:00 23:00 Intake Total 720 ml Output Total 2800 ml Balance -2080 ml Result Diagram: 12/08/17 0532 12/06/17 0725 Administered Medications Medications (Trade) Dose Ordered Sig/Mega Route PRN Reason Start Time Stop Time Status Last Admin Dose Admin Hydroxyzine HCl (Atarax) 50 mg BID PO 11/09/17 09:00 12/09/17 09:55 Risperidone (risperDAL) 3 mg DAILY PO 11/09/17 09:00 Future Hold 11/13/17 08:02 Sodium Chloride (NS Flush) 2 ml UNSCH PRN IV FLUSH FLUSH AFTER USING IV ACCESS 11/08/17 23:15 12/06/17 05:25 Sodium Chloride (NS Flush) 2 ml BID IV FLUSH 11/09/17 09:00 12/06/17 01:31 Acetaminophen (Tylenol) 650 mg Q6H PRN PO PAIN 1-2 AND/OR FEVER >101F 11/08/17 23:15 11/11/17 04:42 Temazepam (Restoril) 15 mg HS PRN PO INSOMNIA 11/08/17 23:15 11/27/17 00:52 Albuterol/ Ipratropium (Duoneb Neb) 1 ampule Q2HR NEB PRN INH WHEEZING 11/08/17 23:15 11/20/17 14:49 Miscellaneous Information 1 Q361D XX 11/08/17 23:15 11/08/17 01:00 Chlorhexidine Gluconate (Chlorhexidine 2% Cloth) Taper DAILY@04 TOP 11/09/17 04:00 11/05/18 03:59 11/25/17 04:00 Chlorhexidine Gluconate (Peridex 0.12% Liq) 15 ml BID@08,20 MT 11/09/17 20:00 12/07/17 08:00 Risperidone (risperDAL M-TAB) 3 mg Q12HR PO 11/13/17 21:00 12/09/17 09:56 Nystatin (Mycostatin Cream) 1 applic Q6HR TOPICAL 11/15/17 18:00 12/09/17 11:04 Aripiprazole (Abilify) 5 mg DAILY PO 11/17/17 14:45 12/09/17 09:54 Metronidazole (Flagyl) 500 mg Q8HR PO 11/25/17 14:00 12/09/17 05:14 Fluconazole (Diflucan) 400 mg DAILY PO 11/26/17 09:00 12/09/17 09:55 Hydromorphone HCl (Dilaudid Pf Inj) 0.5 mg Q3H PRN IV PUSH BREAKTHROUGH PAIN 11/26/17 13:00 12/09/17 07:23 Oxycodone/ Acetaminophen (Percocet 10-325 Mg) 1 tab Q4H PRN PO PAIN SCALE 7 TO 10 11/26/17 13:00 12/09/17 11:05 Valproic Acid (Depakene) 500 mg Q8HR PO 11/28/17 14:00 12/09/17 05:14 Lactated Ringer's 1,000 ml @ 60 mls/hr [id number] IV 11/29/17 15:00 12/08/17 22:25 Alprazolam (Xanax) 0.5 mg Q8H PRN PO anxiety 11/30/17 22:00 12/08/17 20:19 Albumin Human 100 ml @ 60 mls/hr Q12H IV 12/04/17 17:00 12/09/17 05:15 Ceftriaxone Sodium 2000 mg/ Sodium Chloride 100 ml @ 200 mls/hr Q12H IV 12/05/17 15:00 12/09/17 02:41 Enoxaparin Sodium (Lovenox Inj) 40 mg Q24H SQ 12/06/17 17:00 12/08/17 18:20 Famotidine (Pepcid) 20 mg Q12HR PO 12/06/17 21:00 12/09/17 09:54 Epoetin Prasanna (Epogen Inj) 20,000 units DAILY@1400 SQ 12/08/17 14:00 12/10/17 14:00 12/08/17 15:41 Objective Remarks GENERAL: mildly agitated male, sitting up in bed. SKIN: Warm and dry. HEAD: Normocephalic. EYES: No injection or drainage. NECK: Supple, trachea midline. CARDIOVASCULAR: Regular rate and rhythm RESPIRATORY: Breath sounds equal bilaterally. No accessory muscle use. GASTROINTESTINAL: Abdomen soft, non-tender, nondistended. +ostomy bag in place. EXTREMITIES: No cyanosis. wound vac, right leg NEUROLOGICAL: awake and alert, normal speech. able to move extremities. Assessment/Plan Problem List: (1) Colorectal cancer ICD Codes: C19 - Malignant neoplasm of rectosigmoid junction Plan: --s/p diverting colostomy, 12/05/17 --will plan follow up in clinic. --will wait to start XRT until infections resolve. --fs faxed 12/07/17. Discussed with rad onc and ID. Concern from tx of the area with XRT would impact BM, cause BM suppression and possible impact healing. Discussed with patient option of tx with Xeloda which is not too myelosuppressive. It hopes to control his disease, while he continues to heal and take abx therapy. ID anticipate abx/healing for another 8 weeks. Pt offered information on Xeloda. 12/08/17: discussed plan for Xeloda with patient and mother. patient and mother are both on board with plan to give xeloda. however, patient's mother expressed serious concerns about the patient's ability to care for himself and her ability to care for him when discharged home. she would prefer the patient either stay inpatient or go to rehab. she plans to call and speak with the geriatric case manager about her concerns about that today. Assessment 41y/o male with newly diagnosed colorectal cancer. history of schizoaffective, disorder, depression, anxiety. HPI (brought forward for continuity of care) presented to the emergency room on November 08, 2017 with sepsis. Ultrasound of the lower extremity showed mildly enlarged right inguinal lymph node. CT scan of the abdomen and pelvis showed abnormal appearance of the soft tissue of the proximal thigh and gluteal region with fluid and gas tracking between the rectus muscle and anterior thigh muscle. He also had small bilateral pleural effusions. He was referred to general surgery and came under the care of Dr. Bertrand Campos who performed incision and drainage and debridement of the right hip abscess with placement of a VAC dressing. has had repeated surgery for the right hip abscess and VAC dressing placement. He has involved infectious disease and ICU. He has had multiple procedures. Recently in 11/30/2017 he had incision and drainage with skin grafting from the right thigh. Wound VAC is still in place on the right leg. During the course of his hospitalization, he complained of constipation. The constipation pre-dated his hospital admission. He was noted to have a normocytic anemia and heme-positive stools. He has required red cell transfusions. Ultimately a colonoscopy was performed by Dr. Maza on 2017. The findings showed a friable fungating irregular rectal mass suspicious for malignancy. Biopsy of the rectum showed extensively necrotic invasive moderately differentiated adenocarcinoma. Staging evaluation including a repeat CT scan of the abdomen showed some ascitic fluid in the pelvis. There is a bilateral pleural effusion but no obvious site of distant metastatic disease. Plan 1. continue Lovenox prophylaxis 2. discuss xeloda with patient/mother 3. continue supportive care Attending Statement Agree with above, as discussed. Brunilda Nieto Dec 09, 2017 13:16 Jihan Webber MD Dec 09, 2017 20:14
[2017-12-09] MEDS: EPOETIN ALFA 20,000 UNITS/ML VIAL SQ SCH (17:02)
[2017-12-09] MEDS: ENOXAPARIN SODIUM 40 MG/0.4 ML SYRINGE SQ SCH (17:13)
[2017-12-09] MEDS: LACTATED RINGER'S 1000 ML INJ 1,000 ML IV SCH (17:13)
[2017-12-09 18:04] VITALS: O2SAT 99
[2017-12-09 20:00] VITALS: BP 138/87; PULSE 100; RESP 22; TEMP 97.3; O2SAT 96
[2017-12-10] VITALS (7 sets, daily range): BP systolic 122–156; BP diastolic 87–93; PULSE 86–106; RESP 15–20; TEMP 96.7–99.3; O2SAT 97–99
[2017-12-10] MEDS: cefTRIAXone INJ 2,000 MG in SODIUM CHLORIDE 0.9% INJ 100 ML IV SCH ×2 (02:23→14:58)
[2017-12-10] MEDS: HYDROmorphone HCL PF 2 MG/ML VIAL IV PUSH PRN ×3 (02:24→19:58)
[2017-12-10] MEDS: CHLORHEXIDINE GLUCONATE 2 % 1 PACK (2 CLOTHS) TOP SCH (03:46)
[2017-12-10] MEDS: VALPROIC ACID 250 MG CAP PO SCH ×3 (04:30→19:57)
[2017-12-10] MEDS: metroNIDAZOLE 500 MG TAB PO SCH ×3 (04:30→19:57)
[2017-12-10] MEDS: ALBUMIN 25% INJ 100 ML IV SCH ×2 (04:30→16:11)
[2017-12-10] MEDS: oxyCODONE/ACETAMINOPHEN 10 MG/325 MG TAB PO PRN ×4 (04:31→21:20)
[2017-12-10] MEDS: NYSTATIN 100,000 UNIT/GM CREAM 15 GM TOPICAL SCH ×3 (04:39→17:06)
[2017-12-10] MEDS: LACTATED RINGER'S 1000 ML INJ 1,000 ML IV SCH (07:45)
[2017-12-10] MEDS: CHLORHEXIDINE 0.12% (ORAL KIT) 15 ML CUP MT SCH ×2 (08:00→20:00)
[2017-12-10] MEDS: ARIPiprazole 5 MG TAB PO SCH (08:37)
[2017-12-10] MEDS: FAMOTIDINE 20 MG TAB PO SCH ×2 (08:38→19:56)
[2017-12-10] MEDS: SODIUM CHLORIDE 0.9% FLUSH 10 ML FLUSH IV FLUSH SCH ×2 (08:38→19:58)
[2017-12-10] MEDS: FLUCONAZOLE 200 MG TAB PO SCH (08:38)
[2017-12-10] MEDS: hydrOXYzine HCL 50 MG TAB PO SCH ×2 (08:38→19:55)
[2017-12-10] MEDS: risperiDONE ODT 3 MG TAB PO SCH ×2 (08:39→19:57)
--- NOTE | 2017-12-10 09:34 | HHI.PR ---
Subjective Remarks in no acute distress. pain is controlled. no new complaints. Objective Vitals Vital Signs Date Time Temp Pulse Resp B/P (MAP) Pulse Ox O2 Delivery O2 Flow Rate FiO2 12/10/17 08:00 96.8 86 15 156/89 (111) 97 12/10/17 00:00 99.3 103 20 134/93 (107) 98 12/09/17 20:00 97.3 100 22 138/87 (104) 96 12/09/17 18:04 99 Nasal Cannula 2.00 12/09/17 12:00 98.6 86 19 128/93 (105) 99 12/09/17 09:59 95 Nasal Cannula 2.00 I/O 12/09/17 12/09/17 12/09/17 12/10/17 12/10/17 12/10/17 07:00 15:00 23:00 07:00 15:00 23:00 Intake Total 720 ml 2920 ml 1520 ml Output Total 2800 ml 3000 ml 4175 ml Balance -2080 ml -80 ml -2655 ml Intake Oral 720 ml 2200 ml 720 ml IV Total 720 ml 800 ml Output Urine Total 2750 ml 3000 ml 4050 ml Stool Total 50 ml 125 ml Result Diagram: 12/08/17 0532 12/06/17 0725 Imaging Last Impressions Chest X-Ray 11/30/17 0600 Signed Impressions: Service Date/Time: Thursday, November 30, 2017 05:14 - CONCLUSION: No significant change has occurred. Oscar Mcmanus MD Lower Extremity CT 11/15/17 0000 Signed Impressions: Service Date/Time: Wednesday, November 15, 2017 13:22 - CONCLUSION: Extensive fluid surrounding the quadriceps musculature of the right thigh as well as air within the collection anteriorly and laterally which raises the possibility of abscess/infection. Fluid is also noted extending into the region of the gluteus muscles on the right. Diffuse subcutaneous edema the right thigh is noted. Compartment syndrome should be ruled out. Jez Chowdhury MD Abdomen/Pelvis CT 11/15/17 0000 Signed Impressions: Service Date/Time: Wednesday, November 15, 2017 13:22 - CONCLUSION: The abnormal soft tissue mass now has compartmentalized fluid collections and absence of air in the right soft tissues of thigh and gluteal region. This probably represents improving inflammatory or infectious process such as abscess. Small bilateral pleural effusions persist with a new consolidation with air bronchogram in the left lower lobe. Ascitic fluid suggested in the pelvis Silvio Laguerre MD Lower Extremity Ultrasound 11/08/172011 Signed Impressions: Service Date/Time: Wednesday, November 08, 2017 20:41 - CONCLUSION: 1. Negative for deep venous thrombosis. There are mildly enlarged right inguinal lymph nodes. Bertrand Smalls MD Thoracic Spine MRI 11/08/17 0000 Signed Impressions: Service Date/Time: Wednesday, November 08, 2017 22:01 - CONCLUSION: 1. Small bilateral pleural effusions. 2. No signal abnormalities in the thoracic vertebral bodies and no evidence of focal disc disease. Jace Bird MD Lumbar Spine MRI 11/08/17 0000 Signed Impressions: Service Date/Time: Wednesday, November 08, 2017 22:01 - CONCLUSION: 1. No evidence of lumbar disc disease. 2. Soft tissue abnormality about the right gluteal region suggesting abscess with T2 prolongation and contrast enhancement ; this is incompletely included in the [id number] of the exam. 3. There is also abnormal signal within the marrow of the sacral and coccygeal marrow including contrast enhancement suggesting that the right thigh and gluteal abnormality may extend intraosseous, possibly osteomyelitis. Jace Bird MD Objective Remarks GENERAL: This is a well-nourished, well-developed patient, in no apparent distress. CARDIOVASCULAR: Regular rate and regular rhythm without murmurs, gallops, or rubs. RESPIRATORY: Clear to auscultation. Breath sounds equal bilaterally. No wheezes , rales, or rhonchi. GASTROINTESTINAL: Abdomen soft, non-tender, nondistended/ colostomy in place. MUSCULOSKELETAL: right thigh covered with clean dressing. NEURO: Alert & Oriented x4 to person, place, time, situation. Moves all ext x4 Procedures 11/09/17 incision and drainage, irrigation and debridement of right hip abscess with placement of VAC dressing 11/11/17 removal of VAC device, irrigation and debridement of right gluteal hip abscess with placement of drain and replacement of VAC 11/16/17 irrigation and debridement of pelvic infection and abscess, irrigation and debridement of right thigh abscess, right knee arthrotomy with irrigation and debridement 11/16/17 incision and drainage, irrigation and debridement of complex lower extremity abscess with removal of subcutaneous tissue, fascia, and muscle, with application of VAC device 11/18/17 irrigation and debridement of right pelvis and hip, irrigation and debridement of right thigh, irrigation and debridement of right knee 11/21/17 irrigation and debridement of right hip, right thigh, and right knee. Application of wound VAC dressing 11/24/17 irrigation and debridement of right hip, right thigh, right knee. Secondary wound closure, application of wound VAC 11/30/17 I&D with skin grafting right thigh 12/01/17 Colonoscopy 12/05/17 colostomy Medications and IVs Inpatient Medications Acetaminophen (Tylenol) 650 mg Q6H PRN PO PAIN 1-2 AND/OR FEVER >101F Last administered on 11/11/17at 04:42; Start 11/08/17 at 23:15 Albumin Human 100 ml @ 60 mls/hr Q12H IV Last administered on 12/10/17at 04:30 ; Start 12/04/17 at 17:00 Albuterol/ Ipratropium (Duoneb Neb) 1 ampule Q4HR NEB NEB Last administered on 11/17/17at 23:48; Start 11/14/17 at 00:00; Stop 11/17/17 at 23:59; Status DC Alprazolam (Xanax) 0.5 mg Q8H PRN PO anxiety Last administered on 12/08/17at 20: 19; Start 11/30/17 at 22:00 Aripiprazole (Abilify) 5 mg DAILY PO Last administered on 12/10/17at 08:37; Start 11/17/17 at 14:45 Cefepime HCl 2000 mg/Sodium Chloride 100 ml @ 200 mls/hr Q8H IV Last administered on 11/22/17at 08:32; Start 11/19/17 at 17:00; Stop 11/22/17 at 14:11; Status DC Ceftriaxone Sodium 2000 mg/ Sodium Chloride 100 ml @ 200 mls/hr Q12H IV Last administered on 12/10/17at 02:23; Start 12/05/17 at 15:00 Chlorhexidine Gluconate (Chlorhexidine 2% Cloth) 3 pack DENTAL MECHANIC PRN TOPICAL SEE LABEL COMMENTS; Start 12/05/17 at 07:00; Stop 12/08/17 at 06:59; Status DC Chlorhexidine Gluconate (Peridex 0.12% Liq) 15 ml BID@08,20 MT Last administered on 12/10/17at 08:00; Start 11/09/17 at 20:00 Clindamycin/ Sodium Chloride 50 ml @ 100 mls/hr Q6H IV Last administered on at 12:14; Start 11/09/17 at 06:00; Stop 11/10/17 at 16:03; Status DC Dextrose 1,000 ml @ 75 mls/hr [id number] IV Last administered on 11/23/17at 21:43; Start 11/12/17 at 16:45; Stop 11/24/17 at 11:21; Status DC Divalproex Sodium (Depakote Dr) 500 mg BID PO Last administered on 11/09/17at 09 :22; Start 11/09/17 at 09:00; Stop 11/28/17 at 10:26; Status DC Divalproex Sodium (Depakote Er) 500 mg BID PO Last administered on 11/23/17at 08: 46; Start 11/17/17 at 14:45; Stop 11/28/17 at 10:26; Status DC Enoxaparin Sodium (Lovenox Inj) 40 mg Q24H SQ Last administered on 12/09/17at 17 :13; Start 12/06/17 at 17:00 Epoetin Prasanna (Epogen Inj) 20,000 units DAILY@1400 SQ Last administered on 17:02; Start 12/08/17 at 14:00; Stop 12/10/17 at 14:00 Famotidine (Pepcid Inj) 20 mg Q12HR IV PUSH Last administered on 12/06/17at 08: 59; Start 11/09/17 at 09:00; Stop 12/06/17 at 19:26; Status DC Famotidine (Pepcid) 20 mg Q12HR PO Last administered on 12/10/17at 08:38; Start 12/06/17 at 21:00 Fentanyl (Duragesic 50 Mcg Patch.72 Hr) 1 patch ONCE ONCE T-DERMAL Last administered on 11/14/17at 14:10; Start 11/14/17 at 14:00; Stop 11/14/17 at 14:01 ; Status DC Fentanyl Citrate 250 ml @ 5 mls/hr TITRATE PRN IV SEDATION Last administered on 11/13/17at 06:06; Start 11/09/17 at 17:45; Stop 11/13/17 at 20:26; Status DC Fluconazole (Diflucan) 400 mg DAILY PO Last administered on 12/10/17at 08:38; Start 11/26/17 at 09:00 Fluconazole/ Sodium Chloride 200 ml @ 100 mls/hr Q24H IV Last administered on 11/25/17at 10:21; Start 11/20/17 at 10:00; Stop 11/25/17 at 13:59; Status DC Furosemide (Lasix Inj) 20 mg UNSCH X1 IV PUSH Last administered on 11/16/17at 08:28; Start 11/16/17 at 07:45; Stop 11/16/17 at 23:59; Status DC Heparin Sodium (Porcine) (Heparin Inj) 5,000 units Q8H SQ ; Start 11/08/17 at 23 :15; Stop 11/09/17 at 08:21; Status DC Hydromorphone HCl (Dilaudid Pf Inj) 0.5 mg Q3H PRN IV PUSH BREAKTHROUGH PAIN Last administered on 12/10/17at 05:38; Start 11/26/17 at 13:00 Hydroxyzine HCl (Atarax) 50 mg BID PO Last administered on 12/10/17at 08:38; Start 11/09/17 at 09:00 Insulin Human Regular (NovoLIN R INJ) See Protocol Table ... DENTAL MECHANIC PRN SQ SEE PROTOCOL TABLE; Start 12/05/17 at 07:00; Stop 12/08/17 at 06:59; Status DC Lactated Ringer's 1,000 ml @ 30 mls/hr Q24H PRN IV SEE LABEL COMMENTS; Start at 07:00; Stop 12/08/17 at 06:59; Status DC Lorazepam (Ativan Inj) 4 mg ONCE ONCE IV PUSH Last administered on 11/15/17at 10:22; Start 11/15/17 at 10:15; Stop 11/15/17 at 10:16; Status DC Magnesium Citrate (Citroma Liq) 300 ml ONCE ONCE PO Last administered on at 19:19; Start 11/29/17 at 18:00; Stop 11/29/17 at 18:01; Status DC Magnesium Oxide (Mag-Ox) 800 mg UNSCH PRN PO For Magnesium 1.2 - 1.6 mg/dL; Start 11/14/17 at 14:00; Stop 11/23/17 at 19:30; Status DC Magnesium Sulfate 2 gm/Sodium Chloride 100 ml @ 50 mls/hr UNSCH PRN IV For Magnesium 1.2 - 1.6 mg/dL; Start 11/14/17 at 14:00; Stop 11/23/17 at 19:30; Status DC Magnesium Sulfate 4 gm/Sodium Chloride 100 ml @ 50 mls/hr UNSCH PRN IV For Magnesium 0.9 - 1.1 mg/dL; Start 11/14/17 at 14:00; Stop 11/23/17 at 19:29; Status DC Metoprolol Tartrate (Lopressor) 25 mg DENTAL MECHANIC PRN PO SEE LABEL COMMENTS; Start 12/05/17 at 07:00; Stop 12/08/17 at 06:59; Status DC Metronidazole (Flagyl) 500 mg Q8HR PO Last administered on 12/10/17at 04:30; Start 11/25/17 at 14:00 Micafungin Sodium 150 mg/Sodium Chloride 100 ml @ 100 mls/hr Q24H IV Last administered on 11/20/17at 08:36; Start 11/15/17 at 09:00; Stop 11/20/17 at 09:08; Status DC Micafungin Sodium 1000 mg/Sodium Chloride 3,000 ml @ 0 mls/hr ONCE ONCE OTHER Last administered on 11/18/17at 14:15; Start 11/18/17 at 14:00; Stop 11/18/17 at 14:01; Status DC Miscellaneous Information ALL NURSING DEPARTME... UNSCH PRN .XX SEE LABEL COMMENTS; Start 12/05/17 at 18:00; Stop 12/06/17 at 17:59; Status DC Miscellaneous Information (RASS Change Order) 1 ea ONCE ONCE XX Last administered on 11/09/17at 17:19; Start 11/09/17 at 16:30; Stop 11/09/17 at 16:32 ; Status DC Nystatin (Mycostatin Cream) 1 applic Q6HR TOPICAL Last administered on at 04:39; Start 11/15/17 at 18:00 Ondansetron HCl (Zofran Inj) 4 mg Q6H PRN IV PUSH NAUSEA OR VOMITING; Start at 23:15 Oxycodone/ Acetaminophen (Percocet 5-325 Mg) 1 tab Q4H PRN PO PAIN SCALE 3 TO 6; Start 11/26/17 at 13:00 Oxycodone/ Acetaminophen (Percocet 10-325 Mg) 1 tab Q4H PRN PO PAIN SCALE 7 TO 10 Last administered on 12/10/17at 04:31; Start 11/26/17 at 13:00 Pharmacy Profile Note 0 ml @ 0 mls/hr UNSCH OTHER ; Start 11/15/17 at 17:15; Stop 11/20/17 at 09:08; Status DC Piperacillin Sod/ Tazobactam Sod 100 ml @ 200 mls/hr Q6H IV Last administered on 11/14/17at 03:26; Start 11/09/17 at 03:00; Stop 11/14/17 at 08:49; Status DC Potassium Phosphate (K-Phos) 2,000 mg UNSCH PRN PO/TUBE SEE LABEL COMMENTS; Start 11/14/17 at 14:00; Stop 11/23/17 at 19:30; Status DC Potassium Phosphate 30 mmol/ Sodium Chloride 260 ml @ 42 mls/hr UNSCH PRN IV SEE LABEL COMMENTS; Start 11/14/17 at 14:00; Stop 11/23/17 at 19:30; Status DC Potassium Bicarb/ Potassium Chloride (K-Lyte Cl Eff) 25 meq ONCE ONCE PO Last administered on 12/04/17at 13:21; Start 12/04/17 at 12:15; Stop 12/04/17 at 12:16; Status DC Potassium Chloride (KCl) 40 meq Q4H PO Last administered on 12/02/17at 15:43; Start 12/02/17 at 11:00; Stop 12/02/17 at 15:01; Status DC Povidone Iodine (Betadine 5% Antisepsis Kit) 1 applic DENTAL MECHANIC PRN EACH NARE SEE LABEL COMMENTS; Start 12/05/17 at 07:00; Stop 12/08/17 at 06:59; Status DC Propofol 100 ml @ 2.166 mls/ hr TITRATE PRN IV SEDATION; Start 11/09/17 at 17: 45; Stop 11/13/17 at 20:26; Status DC Risperidone (risperDAL M-TAB) 3 mg Q12HR PO Last administered on 12/10/17at 08: 39; Start 11/13/17 at 21:00 Risperidone (risperDAL) 3 mg DAILY PO Last administered on 11/13/17at 08:02; Start 11/09/17 at 09:00; Status Future Hold Sodium Chloride 500 ml @ 30 mls/hr [id number] PRN IV SEE LABEL COMMENTS; Start at 07:00; Stop 12/08/17 at 06:59; Status DC Sodium Chloride (NS Flush) 2 ml BID IV FLUSH Last administered on 12/10/17at 08: 38; Start 11/09/17 at 09:00 Sodium Phosphate 30 mmol/Sodium Chloride 250 ml @ 42 mls/hr UNSCH PRN IV For Phosphorus < 2.5 mg/dL; Start 11/14/17 at 14:00; Stop 11/23/17 at 19:30; Status DC Temazepam (Restoril) 15 mg HS PRN PO INSOMNIA Last administered on 11/27/17at 00 :52; Start 11/08/17 at 23:15 Valproate Sodium 500 mg/Sodium Chloride 105 ml @ 105 mls/hr Q8HR IV Last administered on 11/28/17at 05:43; Start 11/13/17 at 22:00; Stop 11/28/17 at 10:26 ; Status DC Valproic Acid (Depakene Liq) 500 mg BID OG-TUBE Last administered on 11/13/17at 08:02; Start 11/09/17 at 23:00; Stop 11/28/17 at 10:26; Status DC Valproic Acid (Depakene) 500 mg Q8HR PO Last administered on 12/10/17at 04:30; Start 11/28/17 at 14:00 Vancomycin HCl 1000 mg/Sodium Chloride 250 ml @ 250 mls/hr Q12H IV Last administered on 11/09/17at 11:55; Start 11/09/17 at 00:00; Stop 11/09/17 at 13:52 ; Status DC Vancomycin HCl 1250 mg/Sodium Chloride 262.5 ml @ 262.5 mls/ hr ONCE ONCE IV Last administered on 11/15/17at 18:09; Start 11/15/17 at 17:15; Stop 11/15/17 at 18:14; Status DC Vancomycin HCl 1500 mg/Sodium Chloride 515 ml @ 257.5 mls/ hr Q12H IV Last administered on 11/20/17at 00:46; Start 11/16/17 at 12:00; Stop 11/20/17 at 09:08; Status DC Vancomycin HCl 4000 mg/ Tobramycin Sulfate 2400 mg/ Micafungin Sodium 1000 mg/ Sodium Chloride 3,000 ml @ 0 mls/hr DENTAL MECHANIC IRRIGATION ; Start 11/21/17 at 07: 45 Vancomycin/Sodium Chloride 200 ml @ 200 mls/hr DENTAL MECHANIC IV ; Start 11/08/17 at 21:30; Stop 11/09/17 at 13:53; Status DC A/P Assessment and Plan Severe sepsis Secondary to thigh abscess. Status post multiple surgeries Appreciate general surgery, orthopedic surgery and ID recommendations. S/p I&D with skin grafting right thigh 11/30. - Continue antibiotics per infectious disease. - continue wound care per ortho. Acute respiratory failure Resolved. Now on 2 L nasal cannula. CXR shows bibasilar patchy opacities. CXR stable. - oxygen and nebs as needed. Invasive adenocarcinoma of the rectum/ Anemia Patient has received a total of 8 units PRBCs during this hospitalization. Heme positive stools. GI consult appreciated. Mass was noted on colonoscopy. Pathology c/w mod diff invasive adenocarcinoma. Colorectal surgery, medical oncology and radiation oncology consults appreciated. - s/p diverting colostomy 12/05 per CRS. - oncology recommending to hold off on radiation until after chemo. - follow CBC and transfuse as needed; repeat CBC tomorrow. Schizoaffective disorder The pt is endorsing anxiety. - Continue Depakote, risperidone, Abilify. - Alprazolam as needed. Hypokalemia Improved. Anemia S/t above. Hemoglobin has been stable. - follow CBC. DVT prophylaxis: subq Lovenox. Discharge Planning dc planning; home with [facility] when strong enough and cleared by PT. no rehab option. Christian Manzano MD Dec 10, 2017 09:34
[2017-12-10] MEDS: ALPRAZolam 0.5 MG TAB PO PRN ×2 (11:53→21:19)
[2017-12-10] MEDS: EPOETIN ALFA 20,000 UNITS/ML VIAL SQ SCH (14:00)
[2017-12-10] MEDS: ENOXAPARIN SODIUM 40 MG/0.4 ML SYRINGE SQ SCH (16:11)
[2017-12-11] VITALS (11 sets, daily range): BP systolic 122–142; BP diastolic 78–89; PULSE 94–106; RESP 16–20; TEMP 97–98.5; O2SAT 95–100
[2017-12-11] MEDS: LACTATED RINGER'S 1000 ML INJ 1,000 ML IV SCH ×2 (00:25→17:05)
[2017-12-11] MEDS: cefTRIAXone INJ 2,000 MG in SODIUM CHLORIDE 0.9% INJ 100 ML IV SCH ×2 (03:07→15:47)
[2017-12-11] MEDS: CHLORHEXIDINE GLUCONATE 2 % 1 PACK (2 CLOTHS) TOP SCH (03:10)
[2017-12-11] MEDS: oxyCODONE/ACETAMINOPHEN 10 MG/325 MG TAB PO PRN ×3 (03:11→17:18)
[2017-12-11] MEDS: SODIUM CHLORIDE 0.9% FLUSH 10 ML FLUSH IV FLUSH PRN (03:11)
[2017-12-11] MEDS: ALBUMIN 25% INJ 100 ML IV SCH ×2 (05:04→17:07)
[2017-12-11] MEDS: VALPROIC ACID 250 MG CAP PO SCH ×3 (05:05→21:32)
[2017-12-11] MEDS: metroNIDAZOLE 500 MG TAB PO SCH ×3 (05:05→21:31)
[2017-12-11] MEDS: NYSTATIN 100,000 UNIT/GM CREAM 15 GM TOPICAL SCH ×4 (05:05→17:19)
[2017-12-11] MEDS: HYDROmorphone HCL PF 2 MG/ML VIAL IV PUSH PRN ×6 (05:06→21:39)
[2017-12-11] MEDS: CHLORHEXIDINE 0.12% (ORAL KIT) 15 ML CUP MT SCH ×2 (08:00→20:00)
[2017-12-11] MEDS: risperiDONE ODT 3 MG TAB PO SCH ×2 (08:07→21:32)
[2017-12-11] MEDS: FLUCONAZOLE 200 MG TAB PO SCH (08:07)
[2017-12-11] MEDS: SODIUM CHLORIDE 0.9% FLUSH 10 ML FLUSH IV FLUSH SCH ×2 (08:07→21:31)
[2017-12-11] MEDS: ARIPiprazole 5 MG TAB PO SCH (08:07)
[2017-12-11] MEDS: FAMOTIDINE 20 MG TAB PO SCH ×2 (08:07→21:32)
[2017-12-11] MEDS: hydrOXYzine HCL 50 MG TAB PO SCH ×2 (09:00→21:31)
--- NOTE | 2017-12-11 09:29 | HHI.PR ---
Subjective Remarks in no acute distress. overall doing fine. denies pain. no fever. Objective Vitals Vital Signs Date Time Temp Pulse Resp B/P (MAP) Pulse Ox O2 Delivery O2 Flow Rate FiO2 12/11/17 09:24 97 Nasal Cannula 2.00 12/11/17 08:30 98 12/11/17 08:00 97.0 98 16 142/85 (104) 97 12/11/17 06:13 96 12/11/17 04:00 97.4 104 20 132/87 (102) 95 12/11/17 00:00 97.4 106 20 131/89 (103) 98 12/10/17 21:43 98 Nasal Cannula 2.00 12/10/17 20:20 106 12/10/17 20:00 96.7 102 20 122/89 (100) 98 12/10/17 16:00 97.1 89 16 131/90 (104) 98 12/10/17 12:00 97.0 96 16 145/87 (106) 99 I/O 12/10/17 12/10/17 12/10/17 12/11/17 12/11/17 12/11/17 07:00 15:00 23:00 07:00 15:00 23:00 Intake Total 1520 ml 1400 ml 2200 ml Output Total 4175 ml 2200 ml 4500 ml Balance -2655 ml -800 ml -2300 ml Intake Oral 720 ml 1200 ml 2000 ml IV Total 800 ml 200 ml 200 ml Output Urine Total 4050 ml 2200 ml 4500 ml Stool Total 125 ml Result Diagram: 12/08/17 0532 Imaging Last Impressions Chest X-Ray 11/30/17 0600 Signed Impressions: Service Date/Time: Thursday, November 30, 2017 05:14 - CONCLUSION: No significant change has occurred. Oscar Mcmanus MD Lower Extremity CT 11/15/17 0000 Signed Impressions: Service Date/Time: Wednesday, November 15, 2017 13:22 - CONCLUSION: Extensive fluid surrounding the quadriceps musculature of the right thigh as well as air within the collection anteriorly and laterally which raises the possibility of abscess/infection. Fluid is also noted extending into the region of the gluteus muscles on the right. Diffuse subcutaneous edema the right thigh is noted. Compartment syndrome should be ruled out. Jez Chowdhury MD Abdomen/Pelvis CT 11/15/17 0000 Signed Impressions: Service Date/Time: Wednesday, November 15, 2017 13:22 - CONCLUSION: The abnormal soft tissue mass now has compartmentalized fluid collections and absence of air in the right soft tissues of thigh and gluteal region. This probably represents improving inflammatory or infectious process such as abscess. Small bilateral pleural effusions persist with a new consolidation with air bronchogram in the left lower lobe. Ascitic fluid suggested in the pelvis Silvio Laguerre MD Lower Extremity Ultrasound 11/08/172011 Signed Impressions: Service Date/Time: Wednesday, November 08, 2017 20:41 - CONCLUSION: 1. Negative for deep venous thrombosis. There are mildly enlarged right inguinal lymph nodes. Bertrand Smalls MD Thoracic Spine MRI 11/08/17 Signed Impressions: Service Date/Time: Wednesday, November 08, 2017 22:01 - CONCLUSION: 1. Small bilateral pleural effusions. 2. No signal abnormalities in the thoracic vertebral bodies and no evidence of focal disc disease. Jace Bird MD Lumbar Spine MRI 11/08/17 Signed Impressions: Service Date/Time: Wednesday, November 08, 2017 22:01 - CONCLUSION: 1. No evidence of lumbar disc disease. 2. Soft tissue abnormality about the right gluteal region suggesting abscess with T2 prolongation and contrast enhancement ; this is incompletely included in the [id number] of the exam. 3. There is also abnormal signal within the marrow of the sacral and coccygeal marrow including contrast enhancement suggesting that the right thigh and gluteal abnormality may extend intraosseous, possibly osteomyelitis. Jace Bird MD Objective Remarks GENERAL: This is a well-nourished, well-developed patient, in no apparent distress. CARDIOVASCULAR: Regular rate and regular rhythm without murmurs, gallops, or rubs. RESPIRATORY: Clear to auscultation. Breath sounds equal bilaterally. No wheezes , rales, or rhonchi. GASTROINTESTINAL: Abdomen soft, non-tender, nondistended/ colostomy in place. MUSCULOSKELETAL: right thigh covered with clean dressing. NEURO: Alert & Oriented x4 to person, place, time, situation. Moves all ext x4 Procedures 11/09/17 incision and drainage, irrigation and debridement of right hip abscess with placement of VAC dressing 11/11/17 removal of VAC device, irrigation and debridement of right gluteal hip abscess with placement of drain and replacement of VAC 11/16/17 irrigation and debridement of pelvic infection and abscess, irrigation and debridement of right thigh abscess, right knee arthrotomy with irrigation and debridement 11/16/17 incision and drainage, irrigation and debridement of complex lower extremity abscess with removal of subcutaneous tissue, fascia, and muscle, with application of VAC device 11/18/17 irrigation and debridement of right pelvis and hip, irrigation and debridement of right thigh, irrigation and debridement of right knee 11/21/17 irrigation and debridement of right hip, right thigh, and right knee. Application of wound VAC dressing 11/24/17 irrigation and debridement of right hip, right thigh, right knee. Secondary wound closure, application of wound VAC 11/30/17 I&D with skin grafting right thigh 12/01/17 Colonoscopy 12/05/17 colostomy Medications and IVs Inpatient Medications Acetaminophen (Tylenol) 650 mg Q6H PRN PO PAIN 1-2 AND/OR FEVER >101F Last administered on 11/11/17at 04:42; Start 11/08/17 at 23:15 Albumin Human 100 ml @ 60 mls/hr Q12H IV Last administered on 12/11/17at 05:04 ; Start 12/04/17 at 17:00 Albuterol/ Ipratropium (Duoneb Neb) 1 ampule Q4HR NEB NEB Last administered on 11/17/17at 23:48; Start 11/14/17 at 00:00; Stop 11/17/17 at 23:59; Status DC Alprazolam (Xanax) 0.5 mg Q8H PRN PO anxiety Last administered on 12/10/17at 21: 19; Start 11/30/17 at 22:00 Aripiprazole (Abilify) 5 mg DAILY PO Last administered on 12/11/17at 08:07; Start 11/17/17 at 14:45 Cefepime HCl 2000 mg/Sodium Chloride 100 ml @ 200 mls/hr Q8H IV Last administered on 11/22/17at 08:32; Start 11/19/17 at 17:00; Stop 11/22/17 at 14:11; Status DC Ceftriaxone Sodium 2000 mg/ Sodium Chloride 100 ml @ 200 mls/hr Q12H IV Last administered on 12/11/17at 03:07; Start 12/05/17 at 15:00 Chlorhexidine Gluconate (Chlorhexidine 2% Cloth) 3 pack [employer] PRN TOPICAL SEE LABEL COMMENTS; Start 12/05/17 at 07:00; Stop 12/08/17 at 06:59; Status DC Chlorhexidine Gluconate (Peridex 0.12% Liq) 15 ml BID@08,20 MT Last administered on 12/11/17at 08:00; Start 11/09/17 at 20:00 Clindamycin/ Sodium Chloride 50 ml @ 100 mls/hr Q6H IV Last administered on at 12:14; Start 11/09/17 at 06:00; Stop 11/10/17 at 16:03; Status DC Dextrose 1,000 ml @ 75 mls/hr [id number] IV Last administered on 11/23/17at 21:43; Start 11/12/17 at 16:45; Stop 11/24/17 at 11:21; Status DC Divalproex Sodium (Depakote Dr) 500 mg BID PO Last administered on 11/09/17at 09 :22; Start 11/09/17 at 09:00; Stop 11/28/17 at 10:26; Status DC Divalproex Sodium (Depakote Er) 500 mg BID PO Last administered on 11/23/17at 08: 46; Start 11/17/17 at 14:45; Stop 11/28/17 at 10:26; Status DC Enoxaparin Sodium (Lovenox Inj) 40 mg Q24H SQ Last administered on 12/10/17at 16 :11; Start 12/06/17 at 17:00 Epoetin Prasanna (Epogen Inj) 20,000 units DAILY@1400 SQ Last administered on at 14:00; Start 12/08/17 at 14:00; Stop 12/10/17 at 14:00; Status DC Famotidine (Pepcid Inj) 20 mg Q12HR IV PUSH Last administered on 12/06/17at 08: 59; Start 11/09/17 at 09:00; Stop 12/06/17 at 19:26; Status DC Famotidine (Pepcid) 20 mg Q12HR PO Last administered on 12/11/17at 08:07; Start 12/06/17 at 21:00 Fentanyl (Duragesic 50 Mcg Patch.72 Hr) 1 patch ONCE ONCE T-DERMAL Last administered on 11/14/17at 14:10; Start 11/14/17 at 14:00; Stop 11/14/17 at 14:01 ; Status DC Fentanyl Citrate 250 ml @ 5 mls/hr TITRATE PRN IV SEDATION Last administered on 11/13/17at 06:06; Start 11/09/17 at 17:45; Stop 11/13/17 at 20:26; Status DC Fluconazole (Diflucan) 400 mg DAILY PO Last administered on 12/11/17at 08:07; Start 11/26/17 at 09:00 Fluconazole/ Sodium Chloride 200 ml @ 100 mls/hr Q24H IV Last administered on 11/25/17at 10:21; Start 11/20/17 at 10:00; Stop 11/25/17 at 13:59; Status DC Furosemide (Lasix Inj) 20 mg UNSCH X1 IV PUSH Last administered on 11/16/17at 08:28; Start 11/16/17 at 07:45; Stop 11/16/17 at 23:59; Status DC Heparin Sodium (Porcine) (Heparin Inj) 5,000 units Q8H SQ ; Start 11/08/17 at 23 :15; Stop 11/09/17 at 08:21; Status DC Hydromorphone HCl (Dilaudid Pf Inj) 0.5 mg Q3H PRN IV PUSH BREAKTHROUGH PAIN Last administered on 12/11/17at 07:52; Start 11/26/17 at 13:00 Hydroxyzine HCl (Atarax) 50 mg BID PO Last administered on 12/10/17at 19:55; Start 11/09/17 at 09:00 Insulin Human Regular (NovoLIN R INJ) See Protocol Table ... [employer] PRN SQ SEE PROTOCOL TABLE; Start 12/05/17 at 07:00; Stop 12/08/17 at 06:59; Status DC Lactated Ringer's 1,000 ml @ 30 mls/hr Q24H PRN IV SEE LABEL COMMENTS; Start at 07:00; Stop 12/08/17 at 06:59; Status DC Lorazepam (Ativan Inj) 4 mg ONCE ONCE IV PUSH Last administered on 11/15/17at 10:22; Start 11/15/17 at 10:15; Stop 11/15/17 at 10:16; Status DC Magnesium Citrate (Citroma Liq) 300 ml ONCE ONCE PO Last administered on at 19:19; Start 11/29/17 at 18:00; Stop 11/29/17 at 18:01; Status DC Magnesium Oxide (Mag-Ox) 800 mg UNSCH PRN PO For Magnesium 1.2 - 1.6 mg/dL; Start 11/14/17 at 14:00; Stop 11/23/17 at 19:30; Status DC Magnesium Sulfate 2 gm/Sodium Chloride 100 ml @ 50 mls/hr UNSCH PRN IV For Magnesium 1.2 - 1.6 mg/dL; Start 11/14/17 at 14:00; Stop 11/23/17 at 19:30; Status DC Magnesium Sulfate 4 gm/Sodium Chloride 100 ml @ 50 mls/hr UNSCH PRN IV For Magnesium 0.9 - 1.1 mg/dL; Start 11/14/17 at 14:00; Stop 11/23/17 at 19:29; Status DC Metoprolol Tartrate (Lopressor) 25 mg [employer] PRN PO SEE LABEL COMMENTS; Start 12/05/17 at 07:00; Stop 12/08/17 at 06:59; Status DC Metronidazole (Flagyl) 500 mg Q8HR PO Last administered on 12/11/17at 05:05; Start 11/25/17 at 14:00 Micafungin Sodium 150 mg/Sodium Chloride 100 ml @ 100 mls/hr Q24H IV Last administered on 11/20/17at 08:36; Start 11/15/17 at 09:00; Stop 11/20/17 at 09:08; Status DC Micafungin Sodium 1000 mg/Sodium Chloride 3,000 ml @ 0 mls/hr ONCE ONCE OTHER Last administered on 11/18/17at 14:15; Start 11/18/17 at 14:00; Stop 11/18/17 at 14:01; Status DC Miscellaneous Information ALL NURSING DEPARTME... UNSCH PRN .XX SEE LABEL COMMENTS; Start 12/05/17 at 18:00; Stop 12/06/17 at 17:59; Status DC Miscellaneous Information (RASS Change Order) 1 ea ONCE ONCE XX Last administered on 11/09/17at 17:19; Start 11/09/17 at 16:30; Stop 11/09/17 at 16:32 ; Status DC Nystatin (Mycostatin Cream) 1 applic Q6HR TOPICAL Last administered on at 17:06; Start 11/15/17 at 18:00 Ondansetron HCl (Zofran Inj) 4 mg Q6H PRN IV PUSH NAUSEA OR VOMITING; Start at 23:15 Oxycodone/ Acetaminophen (Percocet 5-325 Mg) 1 tab Q4H PRN PO PAIN SCALE 3 TO 6; Start 11/26/17 at 13:00 Oxycodone/ Acetaminophen (Percocet 10-325 Mg) 1 tab Q4H PRN PO PAIN SCALE 7 TO 10 Last administered on 12/11/17at 03:11; Start 11/26/17 at 13:00 Pharmacy Profile Note 0 ml @ 0 mls/hr UNSCH OTHER ; Start 11/15/17 at 17:15; Stop 11/20/17 at 09:08; Status DC Piperacillin Sod/ Tazobactam Sod 100 ml @ 200 mls/hr Q6H IV Last administered on 11/14/17at 03:26; Start 11/09/17 at 03:00; Stop 11/14/17 at 08:49; Status DC Potassium Phosphate (K-Phos) 2,000 mg UNSCH PRN PO/TUBE SEE LABEL COMMENTS; Start 11/14/17 at 14:00; Stop 11/23/17 at 19:30; Status DC Potassium Phosphate 30 mmol/ Sodium Chloride 260 ml @ 42 mls/hr UNSCH PRN IV SEE LABEL COMMENTS; Start 11/14/17 at 14:00; Stop 11/23/17 at 19:30; Status DC Potassium Bicarb/ Potassium Chloride (K-Lyte Cl Eff) 25 meq ONCE ONCE PO Last administered on 12/04/17at 13:21; Start 12/04/17 at 12:15; Stop 12/04/17 at 12:16; Status DC Potassium Chloride (KCl) 40 meq Q4H PO Last administered on 12/02/17at 15:43; Start 12/02/17 at 11:00; Stop 12/02/17 at 15:01; Status DC Povidone Iodine (Betadine 5% Antisepsis Kit) 1 applic [employer] PRN EACH NARE SEE LABEL COMMENTS; Start 12/05/17 at 07:00; Stop 12/08/17 at 06:59; Status DC Propofol 100 ml @ 2.166 mls/ hr TITRATE PRN IV SEDATION; Start 11/09/17 at 17: 45; Stop 11/13/17 at 20:26; Status DC Risperidone (risperDAL M-TAB) 3 mg Q12HR PO Last administered on 12/11/17at 08: 07; Start 11/13/17 at 21:00 Risperidone (risperDAL) 3 mg DAILY PO Last administered on 11/13/17at 08:02; Start 11/09/17 at 09:00; Status Future Hold Sodium Chloride 500 ml @ 30 mls/hr [id number] PRN IV SEE LABEL COMMENTS; Start at 07:00; Stop 12/08/17 at 06:59; Status DC Sodium Chloride (NS Flush) 2 ml BID IV FLUSH Last administered on 12/11/17at 08: 07; Start 11/09/17 at 09:00 Sodium Phosphate 30 mmol/Sodium Chloride 250 ml @ 42 mls/hr UNSCH PRN IV For Phosphorus < 2.5 mg/dL; Start 11/14/17 at 14:00; Stop 11/23/17 at 19:30; Status DC Temazepam (Restoril) 15 mg HS PRN PO INSOMNIA Last administered on 11/27/17at 00 :52; Start 11/08/17 at 23:15 Valproate Sodium 500 mg/Sodium Chloride 105 ml @ 105 mls/hr Q8HR IV Last administered on 11/28/17at 05:43; Start 11/13/17 at 22:00; Stop 11/28/17 at 10:26 ; Status DC Valproic Acid (Depakene Liq) 500 mg BID OG-TUBE Last administered on 11/13/17at 08:02; Start 11/09/17 at 23:00; Stop 11/28/17 at 10:26; Status DC Valproic Acid (Depakene) 500 mg Q8HR PO Last administered on 12/11/17at 05:05; Start 11/28/17 at 14:00 Vancomycin HCl 1000 mg/Sodium Chloride 250 ml @ 250 mls/hr Q12H IV Last administered on 11/09/17at 11:55; Start 11/09/17 at 00:00; Stop 11/09/17 at 13:52 ; Status DC Vancomycin HCl 1250 mg/Sodium Chloride 262.5 ml @ 262.5 mls/ hr ONCE ONCE IV Last administered on 11/15/17at 18:09; Start 11/15/17 at 17:15; Stop 11/15/17 at 18:14; Status DC Vancomycin HCl 1500 mg/Sodium Chloride 515 ml @ 257.5 mls/ hr Q12H IV Last administered on 11/20/17at 00:46; Start 11/16/17 at 12:00; Stop 11/20/17 at 09:08; Status DC Vancomycin HCl 4000 mg/ Tobramycin Sulfate 2400 mg/ Micafungin Sodium 1000 mg/ Sodium Chloride 3,000 ml @ 0 mls/hr [employer] ; Start 11/21/17 at 07: 45 Vancomycin/Sodium Chloride 200 ml @ 200 mls/hr [employer] IV ; Start 11/08/17 at 21:30; Stop 11/09/17 at 13:53; Status DC A/P Assessment and Plan Severe sepsis Secondary to thigh abscess. Status post multiple surgeries Appreciate general surgery, orthopedic surgery and ID recommendations. S/p I&D with skin grafting right thigh 11/30. - Continue antibiotics per infectious disease. - continue wound care per ortho. Acute respiratory failure Resolved. Now on 2 L nasal cannula. CXR shows bibasilar patchy opacities. CXR stable. - oxygen and nebs as needed. Invasive adenocarcinoma of the rectum/ Anemia Patient has received a total of 8 units PRBCs during this hospitalization. Heme positive stools. GI consult appreciated. Mass was noted on colonoscopy. Pathology c/w mod diff invasive adenocarcinoma. Colorectal surgery, medical oncology and radiation oncology consults appreciated. - s/p diverting colostomy 12/05 per CRS. - oncology recommending to hold off on radiation until after chemo. - follow CBC and transfuse as needed; repeat CBC tomorrow. Schizoaffective disorder The pt is endorsing anxiety. - Continue Depakote, risperidone, Abilify. - Alprazolam as needed. Hypokalemia Improved. Anemia S/t above. Hemoglobin has been stable. - follow CBC. DVT prophylaxis: subq Lovenox. Discharge Planning dc planning; home with [facility] when strong enough and cleared by PT. no rehab option. Christian Manzano MD Dec 11, 2017 09:29
--- NOTE | 2017-12-11 10:22 | HHI.PR ---
Subjective Remarks POD#6 s/p diverting colostomy, rectal cancer comfortable, tolerating PO Objective Vital Signs Date Time Temp Pulse Resp B/P (MAP) Pulse Ox O2 Delivery O2 Flow Rate FiO2 12/11/17 09:24 97 Nasal Cannula 2.00 12/11/17 08:30 98 12/11/17 08:00 97.0 98 16 142/85 (104) 97 12/11/17 06:13 96 12/11/17 04:00 97.4 104 20 132/87 (102) 95 12/11/17 00:00 97.4 106 20 131/89 (103) 98 12/10/17 21:43 98 Nasal Cannula 2.00 12/10/17 20:20 106 12/10/17 20:00 96.7 102 20 122/89 (100) 98 12/10/17 16:00 97.1 89 16 131/90 (104) 98 12/10/17 12:00 97.0 96 16 145/87 (106) 99 I/O 12/10/17 12/10/17 12/10/17 12/11/17 12/11/17 12/11/17 07:00 15:00 23:00 07:00 15:00 23:00 Intake Total 1520 ml 1400 ml 2200 ml Output Total 4175 ml 2200 ml 4500 ml Balance -2655 ml -800 ml -2300 ml Intake Oral 720 ml 1200 ml 2000 ml IV Total 800 ml 200 ml 200 ml Output Urine Total 4050 ml 2200 ml 4500 ml Stool Total 125 ml Result Diagram: 12/08/17 0532 Objective Remarks Abdomen soft, nondistended, tender Stoma pink, bar in place Assessment and Plan Assessment and Plan Discharge planning OK for discharge when ok with other services Shannen Oneil MD Dec 11, 2017 10:22
[2017-12-11] MEDS: ALPRAZolam 0.5 MG TAB PO PRN (11:09)
[2017-12-11] MEDS: ENOXAPARIN SODIUM 40 MG/0.4 ML SYRINGE SQ SCH (17:07)
[2017-12-12] VITALS (11 sets, daily range): BP systolic 103–147; BP diastolic 60–97; PULSE 91–118; RESP 16–20; TEMP 96.5–99.1; O2SAT 92–99
[2017-12-12] MEDS: NYSTATIN 100,000 UNIT/GM CREAM 15 GM TOPICAL SCH ×4 (01:03→18:00)
[2017-12-12] MEDS: oxyCODONE/ACETAMINOPHEN 10 MG/325 MG TAB PO PRN ×5 (01:15→23:06)
[2017-12-12] MEDS: cefTRIAXone INJ 2,000 MG in SODIUM CHLORIDE 0.9% INJ 100 ML IV SCH ×2 (03:49→16:40)
[2017-12-12] MEDS: CHLORHEXIDINE GLUCONATE 2 % 1 PACK (2 CLOTHS) TOP SCH (04:00)
[2017-12-12] MEDS: ALBUMIN 25% INJ 100 ML IV SCH ×2 (04:34→16:43)
[2017-12-12] MEDS: metroNIDAZOLE 500 MG TAB PO SCH ×3 (06:00→21:14)
[2017-12-12] MEDS: VALPROIC ACID 250 MG CAP PO SCH ×3 (06:00→21:14)
[2017-12-12] MEDS: HYDROmorphone HCL PF 2 MG/ML VIAL IV PUSH PRN ×2 (06:00→10:46)
[2017-12-12] MEDS: SODIUM CHLORIDE 0.9% FLUSH 10 ML FLUSH IV FLUSH PRN (06:01)
[2017-12-12] MEDS: CHLORHEXIDINE 0.12% (ORAL KIT) 15 ML CUP MT SCH ×2 (08:00→20:00)
[2017-12-12 08:25] LABS: AUTOMATED NEUTROPHIL # 7.8 TH/MM3 (1.8-7.7); BASOPHIL # 0.1 TH/MM3 (0-0.2); BASOPHIL % 1.3 % (0.0-2.0); EOSINOPHIL # 0.2 TH/MM3 (0-0.4); EOSINOPHIL % 2.3 % (0.0-4.0); LYMPH % 6.4 % (9.0-44.0); LYMPHOCYTE # 0.6 TH/MM3 (1.0-4.8); MEAN CELL VOLUME 85.8 FL (80.0-100.0); MEAN CORPUSCULAR HGB CONC 33.8 % (32.0-36.0); MEAN PLATELET VOLUME 7.5 FL (7.0-11.0); MONO % 9.9 % (0.0-8.0); NEUT % 80.1 % (16.0-70.0); PLATELET COUNT 222 TH/MM3 (150-450); RED BLOOD COUNT 2.35 MIL/MM3 (4.50-5.90); RED CELL DISTRIBUTION WIDTH 19.3 % (11.6-17.2); WHITE BLOOD COUNT 9.8 TH/MM3 (4.0-11.0)
[2017-12-12 08:31] LABS: HEMOGLOBIN 6.8 GM/DL (13.0-17.0)
[2017-12-12 08:32] LABS: HEMATOCRIT 20.1 % (39.0-51.0)
[2017-12-12 08:47] LABS: BICARBONATE 27.2 MEQ/L (21.0-32.0); CALCIUM 8.7 MG/DL (8.5-10.1); CREATININE 0.62 MG/DL (0.60-1.30)
[2017-12-12] MEDS: risperiDONE ODT 3 MG TAB PO SCH ×2 (09:00→21:15)
[2017-12-12] MEDS: FLUCONAZOLE 200 MG TAB PO SCH ×3 (09:01→16:54)
[2017-12-12] MEDS: SODIUM CHLORIDE 0.9% FLUSH 10 ML FLUSH IV FLUSH SCH ×2 (09:01→21:16)
[2017-12-12] MEDS: ARIPiprazole 5 MG TAB PO SCH (09:02)
[2017-12-12] MEDS: FAMOTIDINE 20 MG TAB PO SCH ×2 (09:02→21:16)
[2017-12-12] MEDS: hydrOXYzine HCL 50 MG TAB PO SCH ×2 (09:02→21:15)
[2017-12-12] MEDS: LACTATED RINGER'S 1000 ML INJ 1,000 ML IV SCH (09:45)
--- NOTE | 2017-12-12 10:26 | HHI.PR ---
Subjective Remarks in no acute distress. has minimal to mild abdominal pain. no new complaints. afebrile. d/w the RN. Objective Vitals Vital Signs Date Time Temp Pulse Resp B/P (MAP) Pulse Ox O2 Delivery O2 Flow Rate FiO2 12/12/17 07:57 97.4 91 18 124/78 (93) 92 12/12/17 04:00 96.5 117 18 139/97 (111) 98 12/12/17 00:00 98.5 118 18 147/89 (108) 97 12/12/17 00:00 100 12/11/17 20:02 94 12/11/17 20:00 97.9 102 18 122/78 (93) 98 12/11/17 16:00 98.5 98 16 128/78 (95) 99 12/11/17 15:09 102 12/11/17 12:00 97.3 102 17 140/82 (101) 100 I/O 12/11/17 12/11/17 12/11/17 12/12/17 12/12/17 12/12/17 07:00 15:00 23:00 07:00 15:00 23:00 Intake Total 2200 ml 2200 ml 1200 ml Output Total 4500 ml 3625 ml 4375 ml Balance -2300 ml -1425 ml -3175 ml Intake Oral 2000 ml 2000 ml 1200 ml IV Total 200 ml 200 ml Output Urine Total 4500 ml 3350 ml 4200 ml Stool Total 275 ml 175 ml Result Diagram: 12/12/17 0705 12/12/17 0705 Imaging Last Impressions Chest X-Ray 11/30/17 0600 Signed Impressions: Service Date/Time: Thursday, November 30, 2017 05:14 - CONCLUSION: No significant change has occurred. Oscar Mcmanus MD Lower Extremity CT 11/15/17 0000 Signed Impressions: Service Date/Time: Wednesday, November 15, 2017 13:22 - CONCLUSION: Extensive fluid surrounding the quadriceps musculature of the right thigh as well as air within the collection anteriorly and laterally which raises the possibility of abscess/infection. Fluid is also noted extending into the region of the gluteus muscles on the right. Diffuse subcutaneous edema the right thigh is noted. Compartment syndrome should be ruled out. Jez Chowdhury MD Abdomen/Pelvis CT 11/15/17 0000 Signed Impressions: Service Date/Time: Wednesday, November 15, 2017 13:22 - CONCLUSION: The abnormal soft tissue mass now has compartmentalized fluid collections and absence of air in the right soft tissues of thigh and gluteal region. This probably represents improving inflammatory or infectious process such as abscess. Small bilateral pleural effusions persist with a new consolidation with air bronchogram in the left lower lobe. Ascitic fluid suggested in the pelvis Silvio Laguerre MD Lower Extremity Ultrasound 11/08/172011 Signed Impressions: Service Date/Time: Wednesday, November 08, 2017 20:41 - CONCLUSION: 1. Negative for deep venous thrombosis. There are mildly enlarged right inguinal lymph nodes. Bertrand Smalls MD Thoracic Spine MRI 11/08/17 0000 Signed Impressions: Service Date/Time: Wednesday, November 08, 2017 22:01 - CONCLUSION: 1. Small bilateral pleural effusions. 2. No signal abnormalities in the thoracic vertebral bodies and no evidence of focal disc disease. Jace Bird MD Lumbar Spine MRI 11/08/17 0000 Signed Impressions: Service Date/Time: Wednesday, November 08, 2017 22:01 - CONCLUSION: 1. No evidence of lumbar disc disease. 2. Soft tissue abnormality about the right gluteal region suggesting abscess with T2 prolongation and contrast enhancement ; this is incompletely included in the [id number] of the exam. 3. There is also abnormal signal within the marrow of the sacral and coccygeal marrow including contrast enhancement suggesting that the right thigh and gluteal abnormality may extend intraosseous, possibly osteomyelitis. Jace Bird MD Objective Remarks GENERAL: This is a well-nourished, well-developed patient, in no apparent distress. CARDIOVASCULAR: Regular rate and regular rhythm without murmurs, gallops, or rubs. RESPIRATORY: Clear to auscultation. Breath sounds equal bilaterally. No wheezes , rales, or rhonchi. GASTROINTESTINAL: Abdomen soft, non-tender, nondistended/ colostomy in place. MUSCULOSKELETAL: right thigh covered with clean dressing. NEURO: Alert & Oriented x4 to person, place, time, situation. Moves all ext x4 Procedures 11/09/17 incision and drainage, irrigation and debridement of right hip abscess with placement of VAC dressing 11/11/17 removal of VAC device, irrigation and debridement of right gluteal hip abscess with placement of drain and replacement of VAC 11/16/17 irrigation and debridement of pelvic infection and abscess, irrigation and debridement of right thigh abscess, right knee arthrotomy with irrigation and debridement 11/16/17 incision and drainage, irrigation and debridement of complex lower extremity abscess with removal of subcutaneous tissue, fascia, and muscle, with application of VAC device 11/18/17 irrigation and debridement of right pelvis and hip, irrigation and debridement of right thigh, irrigation and debridement of right knee 11/21/17 irrigation and debridement of right hip, right thigh, and right knee. Application of wound VAC dressing 11/24/17 irrigation and debridement of right hip, right thigh, right knee. Secondary wound closure, application of wound VAC 11/30/17 I&D with skin grafting right thigh 12/01/17 Colonoscopy 12/05/17 colostomy Medications and IVs Inpatient Medications Acetaminophen (Tylenol) 650 mg Q6H PRN PO PAIN 1-2 AND/OR FEVER >101F Last administered on 11/11/17at 04:42; Start 11/08/17 at 23:15 Albumin Human 100 ml @ 60 mls/hr Q12H IV Last administered on 12/12/17at 04:34 ; Start 12/04/17 at 17:00 Albuterol/ Ipratropium (Duoneb Neb) 1 ampule Q4HR NEB NEB Last administered on 11/17/17at 23:48; Start 11/14/17 at 00:00; Stop 11/17/17 at 23:59; Status DC Alprazolam (Xanax) 0.5 mg Q8H PRN PO anxiety Last administered on 12/11/17at 11: 09; Start 11/30/17 at 22:00 Aripiprazole (Abilify) 5 mg DAILY PO Last administered on 12/12/17at 09:02; Start 11/17/17 at 14:45 Cefepime HCl 2000 mg/Sodium Chloride 100 ml @ 200 mls/hr Q8H IV Last administered on 11/22/17at 08:32; Start 11/19/17 at 17:00; Stop 11/22/17 at 14:11; Status DC Ceftriaxone Sodium 2000 mg/ Sodium Chloride 100 ml @ 200 mls/hr Q12H IV Last administered on 12/12/17at 03:49; Start 12/05/17 at 15:00 Chlorhexidine Gluconate (Chlorhexidine 2% Cloth) 3 pack SHELLFISH MEAT SEPARATOR OPERATOR PRN TOPICAL SEE LABEL COMMENTS; Start 12/05/17 at 07:00; Stop 12/08/17 at 06:59; Status DC Chlorhexidine Gluconate (Peridex 0.12% Liq) 15 ml BID@08,20 MT Last administered on 12/11/17at 08:00; Start 11/09/17 at 20:00 Clindamycin/ Sodium Chloride 50 ml @ 100 mls/hr Q6H IV Last administered on at 12:14; Start 11/09/17 at 06:00; Stop 11/10/17 at 16:03; Status DC Dextrose 1,000 ml @ 75 mls/hr [id number] IV Last administered on 11/23/17at 21:43; Start 11/12/17 at 16:45; Stop 11/24/17 at 11:21; Status DC Divalproex Sodium (Depakote Dr) 500 mg BID PO Last administered on 11/09/17at 09 :22; Start 11/09/17 at 09:00; Stop 11/28/17 at 10:26; Status DC Divalproex Sodium (Depakote Er) 500 mg BID PO Last administered on 11/23/17at 08: 46; Start 11/17/17 at 14:45; Stop 11/28/17 at 10:26; Status DC Enoxaparin Sodium (Lovenox Inj) 40 mg Q24H SQ Last administered on 12/11/17at 17 :07; Start 12/06/17 at 17:00 Epoetin Prasanna (Epogen Inj) 20,000 units DAILY@1400 SQ Last administered on at 14:00; Start 12/08/17 at 14:00; Stop 12/10/17 at 14:00; Status DC Famotidine (Pepcid Inj) 20 mg Q12HR IV PUSH Last administered on 12/06/17at 08: 59; Start 11/09/17 at 09:00; Stop 12/06/17 at 19:26; Status DC Famotidine (Pepcid) 20 mg Q12HR PO Last administered on 12/12/17at 09:02; Start 12/06/17 at 21:00 Fentanyl (Duragesic 50 Mcg Patch.72 Hr) 1 patch ONCE ONCE T-DERMAL Last administered on 11/14/17at 14:10; Start 11/14/17 at 14:00; Stop 11/14/17 at 14:01 ; Status DC Fentanyl Citrate 250 ml @ 5 mls/hr TITRATE PRN IV SEDATION Last administered on 11/13/17at 06:06; Start 11/09/17 at 17:45; Stop 11/13/17 at 20:26; Status DC Fluconazole (Diflucan) 400 mg DAILY PO Last administered on 12/12/17at 09:01; Start 11/26/17 at 09:00 Fluconazole/ Sodium Chloride 200 ml @ 100 mls/hr Q24H IV Last administered on 11/25/17at 10:21; Start 11/20/17 at 10:00; Stop 11/25/17 at 13:59; Status DC Furosemide (Lasix Inj) 20 mg UNSCH X1 IV PUSH Last administered on 11/16/17at 08:28; Start 11/16/17 at 07:45; Stop 11/16/17 at 23:59; Status DC Heparin Sodium (Porcine) (Heparin Inj) 5,000 units Q8H SQ ; Start 11/08/17 at 23 :15; Stop 11/09/17 at 08:21; Status DC Hydromorphone HCl (Dilaudid Pf Inj) 0.5 mg Q3H PRN IV PUSH BREAKTHROUGH PAIN Last administered on 12/12/17at 06:00; Start 11/26/17 at 13:00 Hydroxyzine HCl (Atarax) 50 mg BID PO Last administered on 12/12/17at 09:02; Start 11/09/17 at 09:00 Insulin Human Regular (NovoLIN R INJ) See Protocol Table ... SHELLFISH MEAT SEPARATOR OPERATOR PRN SQ SEE PROTOCOL TABLE; Start 12/05/17 at 07:00; Stop 12/08/17 at 06:59; Status DC Lactated Ringer's 1,000 ml @ 30 mls/hr Q24H PRN IV SEE LABEL COMMENTS; Start at 07:00; Stop 12/08/17 at 06:59; Status DC Lorazepam (Ativan Inj) 4 mg ONCE ONCE IV PUSH Last administered on 11/15/17at 10:22; Start 11/15/17 at 10:15; Stop 11/15/17 at 10:16; Status DC Magnesium Citrate (Citroma Liq) 300 ml ONCE ONCE PO Last administered on at 19:19; Start 11/29/17 at 18:00; Stop 11/29/17 at 18:01; Status DC Magnesium Oxide (Mag-Ox) 800 mg UNSCH PRN PO For Magnesium 1.2 - 1.6 mg/dL; Start 11/14/17 at 14:00; Stop 11/23/17 at 19:30; Status DC Magnesium Sulfate 2 gm/Sodium Chloride 100 ml @ 50 mls/hr UNSCH PRN IV For Magnesium 1.2 - 1.6 mg/dL; Start 11/14/17 at 14:00; Stop 11/23/17 at 19:30; Status DC Magnesium Sulfate 4 gm/Sodium Chloride 100 ml @ 50 mls/hr UNSCH PRN IV For Magnesium 0.9 - 1.1 mg/dL; Start 11/14/17 at 14:00; Stop 11/23/17 at 19:29; Status DC Metoprolol Tartrate (Lopressor) 25 mg SHELLFISH MEAT SEPARATOR OPERATOR PRN PO SEE LABEL COMMENTS; Start 12/05/17 at 07:00; Stop 12/08/17 at 06:59; Status DC Metronidazole (Flagyl) 500 mg Q8HR PO Last administered on 12/12/17at 06:00; Start 11/25/17 at 14:00 Micafungin Sodium 150 mg/Sodium Chloride 100 ml @ 100 mls/hr Q24H IV Last administered on 11/20/17at 08:36; Start 11/15/17 at 09:00; Stop 11/20/17 at 09:08; Status DC Micafungin Sodium 1000 mg/Sodium Chloride 3,000 ml @ 0 mls/hr ONCE ONCE OTHER Last administered on 11/18/17at 14:15; Start 11/18/17 at 14:00; Stop 11/18/17 at 14:01; Status DC Miscellaneous Information ALL NURSING DEPARTME... UNSCH PRN .XX SEE LABEL COMMENTS; Start 12/05/17 at 18:00; Stop 12/06/17 at 17:59; Status DC Miscellaneous Information (RASS Change Order) 1 ea ONCE ONCE XX Last administered on 11/09/17at 17:19; Start 11/09/17 at 16:30; Stop 11/09/17 at 16:32 ; Status DC Nystatin (Mycostatin Cream) 1 applic Q6HR TOPICAL Last administered on at 06:00; Start 11/15/17 at 18:00 Ondansetron HCl (Zofran Inj) 4 mg Q6H PRN IV PUSH NAUSEA OR VOMITING; Start at 23:15 Oxycodone/ Acetaminophen (Percocet 5-325 Mg) 1 tab Q4H PRN PO PAIN SCALE 3 TO 6; Start 11/26/17 at 13:00 Oxycodone/ Acetaminophen (Percocet 10-325 Mg) 1 tab Q4H PRN PO PAIN SCALE 7 TO 10 Last administered on 12/12/17at 09:02; Start 11/26/17 at 13:00 Pharmacy Profile Note 0 ml @ 0 mls/hr UNSCH OTHER ; Start 11/15/17 at 17:15; Stop 11/20/17 at 09:08; Status DC Piperacillin Sod/ Tazobactam Sod 100 ml @ 200 mls/hr Q6H IV Last administered on 11/14/17at 03:26; Start 11/09/17 at 03:00; Stop 11/14/17 at 08:49; Status DC Potassium Phosphate (K-Phos) 2,000 mg UNSCH PRN PO/TUBE SEE LABEL COMMENTS; Start 11/14/17 at 14:00; Stop 11/23/17 at 19:30; Status DC Potassium Phosphate 30 mmol/ Sodium Chloride 260 ml @ 42 mls/hr UNSCH PRN IV SEE LABEL COMMENTS; Start 11/14/17 at 14:00; Stop 11/23/17 at 19:30; Status DC Potassium Bicarb/ Potassium Chloride (K-Lyte Cl Eff) 25 meq ONCE ONCE PO Last administered on 12/04/17at 13:21; Start 12/04/17 at 12:15; Stop 12/04/17 at 12:16; Status DC Potassium Chloride (KCl) 40 meq Q4H PO Last administered on 12/02/17at 15:43; Start 12/02/17 at 11:00; Stop 12/02/17 at 15:01; Status DC Povidone Iodine (Betadine 5% Antisepsis Kit) 1 applic SHELLFISH MEAT SEPARATOR OPERATOR PRN EACH NARE SEE LABEL COMMENTS; Start 12/05/17 at 07:00; Stop 12/08/17 at 06:59; Status DC Propofol 100 ml @ 2.166 mls/ hr TITRATE PRN IV SEDATION; Start 11/09/17 at 17: 45; Stop 11/13/17 at 20:26; Status DC Risperidone (risperDAL M-TAB) 3 mg Q12HR PO Last administered on 12/12/17at 09: 00; Start 11/13/17 at 21:00 Risperidone (risperDAL) 3 mg DAILY PO Last administered on 11/13/17at 08:02; Start 11/09/17 at 09:00; Status Future Hold Sodium Chloride 500 ml @ 30 mls/hr [id number] PRN IV SEE LABEL COMMENTS; Start at 07:00; Stop 12/08/17 at 06:59; Status DC Sodium Chloride (NS Flush) 2 ml BID IV FLUSH Last administered on 12/12/17at 09: 01; Start 11/09/17 at 09:00 Sodium Phosphate 30 mmol/Sodium Chloride 250 ml @ 42 mls/hr UNSCH PRN IV For Phosphorus < 2.5 mg/dL; Start 11/14/17 at 14:00; Stop 11/23/17 at 19:30; Status DC Temazepam (Restoril) 15 mg HS PRN PO INSOMNIA Last administered on 11/27/17at 00 :52; Start 11/08/17 at 23:15 Valproate Sodium 500 mg/Sodium Chloride 105 ml @ 105 mls/hr Q8HR IV Last administered on 11/28/17at 05:43; Start 11/13/17 at 22:00; Stop 11/28/17 at 10:26 ; Status DC Valproic Acid (Depakene Liq) 500 mg BID OG-TUBE Last administered on 11/13/17at 08:02; Start 11/09/17 at 23:00; Stop 11/28/17 at 10:26; Status DC Valproic Acid (Depakene) 500 mg Q8HR PO Last administered on 12/12/17at 06:00; Start 11/28/17 at 14:00 Vancomycin HCl 1000 mg/Sodium Chloride 250 ml @ 250 mls/hr Q12H IV Last administered on 11/09/17at 11:55; Start 1/24/18 at 00:00; Stop 11/09/17 at 13:52 ; Status DC Vancomycin HCl 1250 mg/Sodium Chloride 262.5 ml @ 262.5 mls/ hr ONCE ONCE IV Last administered on 11/15/17at 18:09; Start 11/15/17 at 17:15; Stop 11/15/17 at 18:14; Status DC Vancomycin HCl 1500 mg/Sodium Chloride 515 ml @ 257.5 mls/ hr Q12H IV Last administered on 11/20/17at 00:46; Start 11/16/17 at 12:00; Stop 11/20/17 at 09:08; Status DC Vancomycin HCl 4000 mg/ Tobramycin Sulfate 2400 mg/ Micafungin Sodium 1000 mg/ Sodium Chloride 3,000 ml @ 0 mls/hr SHELLFISH MEAT SEPARATOR OPERATOR IRRIGATION ; Start 11/21/17 at 07: 45 Vancomycin/Sodium Chloride 200 ml @ 200 mls/hr SHELLFISH MEAT SEPARATOR OPERATOR IV ; Start 11/08/17 at 21:30; Stop 11/09/17 at 13:53; Status DC A/P Assessment and Plan Severe sepsis bacteremia with strep viridans thigh abscess - Status post multiple surgeries Appreciate general surgery, orthopedic surgery and ID recommendations. S/p I&D with skin grafting right thigh 11/30. - Continue antibiotics per infectious disease. -repeat CT of the femur / abdomen today. - continue wound care per ortho. Acute respiratory failure Resolved. Now on 2 L nasal cannula. CXR shows bibasilar patchy opacities. CXR stable. - oxygen and nebs as needed. Invasive adenocarcinoma of the rectum Anemia - Heme positive stools. GI consult appreciated. Mass was noted on colonoscopy. Pathology c/w mod diff invasive adenocarcinoma. Colorectal surgery, medical oncology and radiation oncology consults appreciated. - s/p diverting colostomy 12/05 per CRS. - oncology recommending to hold off on radiation until after chemo. -colorectal surgery following. -H/H dropped to 6.8/20.1; will transfuse with PRBC- continue to monitor H/H. Schizoaffective disorder The pt is endorsing anxiety. - Continue Depakote, risperidone, Abilify. - Alprazolam as needed. Hypokalemia Improved. DVT prophylaxis: subq Lovenox. Discharge Planning dc planning; home with C when strong enough and cleared by PT and ID. no rehab option. Christian Manzano MD Dec 12, 2017 10:26
[2017-12-12] MEDS ORDERED: DIATRIZOATE MEGLUM/DIATRIZOATE SOD 9 ML CUP PO ONE (11:30)
--- NOTE | 2017-12-12 14:27 | HHI.IDPN ---
Subjective Subjective Remarks is a 41 y/o CM with PMHx of Schizoaffective disorder on Haldol IM injections in bilateral buttocks. Patient reports getting these as outpatient by unknown doctor (different doctor each time per patient). Approx 1 month back after he received his last Haldol IM shot in right buttock patient noticed pain and swelling and decreased range of motion. Patient continued to receive Haldol shots in left buttock due to pain in right buttock. Patient reports his ability to move around has declined since last 1 week and he needs help with ADL phuong dressing himself due to significant pain on right lower extremity. Patient reports fevers chills and night sweats for the last 1 week prior to admission and significant worsening pain and swelling of his right lower extremity. Patient's past medical history is also significant for right dorsum of the foot marsh as a child as well as neuropathy. Per review of records it appears the patient's mother has reported that he hasn't been feeling well since July and has presented to another emergency department related to back and hip pain. The patient was diagnosed with fecal impaction and severe constipation was seen by head rose grower. Patient reports that he was on a bowel regimen to help with her constipation and that has been a challenge to maintain continence. Patient has had incontinence of stool and intermittently incontinence of urine since July. With this background patient presents to the emergency department for evaluation of difficulty walking, generalized weakness, weight loss loss of appetite. Reportedly while in the triage area his blood pressure was in the 70s systolic. Patient also reported abdominal pain in the lower quadrants radiating to his bilateral lower extremity but more so on the right. Patient reported nausea decrease in appetite and loss of about 20 pound weight in the last 1 month. Patient denies any recent intravenous drug abuse. Patient does endorse to receiving intramuscular Haldol in bilateral buttocks. The last right buttock Haldol injection was approximately 1 month back. Patient reports having weakness of bilateral lower extremities more so on the right especially because of sharp shooting pains down his right leg. In the emergency department patient received a total of 4 L of IV fluids as a part of severe sepsis workup and management. Cultures drawn at admission are currently pending. A CT scan of the abdomen showed appearance of soft tissue mass of the proximal thigh and gluteal region with fluid and gas tracking down the rectus muscle into the anterior thigh muscle. This is concerning for infectious or necrotic process. Infectious disease consulted for evaluation and management of severe sepsis, right buttock abscess possible osteomyelitis. Overnight events reviewed with RN No fevers No rash No diarrhea colostomy bag in place and has liquid stool. Antibiotics Current Medications Medications (Trade) Dose Ordered Sig/Mega Route Start Time Stop Time Status Last Admin (Atarax) 50 mg BID PO 11/09/17 09:00 12/08/17 08:40 (risperDAL) 3 mg DAILY PO 11/09/17 09:00 Future Hold 11/13/17 08:02 (NS Flush) 2 ml UNSCH PRN IV FLUSH 11/08/17 23:15 12/06/17 05:25 (NS Flush) 2 ml BID IV FLUSH 11/09/17 09:00 12/06/17 01:31 (Tylenol) 650 mg Q6H PRN PO 11/08/17 23:15 11/11/17 04:42 (Zofran Inj) 4 mg Q6H PRN IV PUSH 11/08/17 23:15 (Restoril) 15 mg HS PRN PO 11/08/17 23:15 11/27/17 00:52 (Duoneb Neb) 1 ampule Q2HR NEB PRN INH 11/08/17 23:15 11/20/17 14:49 Miscellaneous Information 1 Q361D XX 11/08/17 23:15 11/08/17 01:00 (Chlorhexidine 2% Cloth) Taper DAILY@04 TOP 11/09/17 04:00 11/05/18 03:59 11/25/17 04:00 (Chlorhexidine 2% Cloth) 3 pack UNSCH PRN TOP 11/08/17 23:15 (Peridex 0.12% Liq) 15 ml BID@08,20 MT 11/09/17 20:00 12/07/17 08:00 (risperDAL M-TAB) 3 mg Q12HR PO 11/13/17 21:00 12/08/17 08:40 (Mycostatin Cream) 1 applic Q6HR TOPICAL 11/15/17 18:00 12/08/17 11:13 (Abilify) 5 mg DAILY PO 11/17/17 14:45 12/08/17 08:40 Vancomycin HCl 4000 mg/ Tobramycin Sulfate 2400 mg/ Micafungin Sodium 1000 mg/Sodium Chloride 3,000 ml @ 0 mls/hr BPM ANALYST IRRIGATION 11/21/17 07:45 (Flagyl) 500 mg Q8HR PO 11/25/17 14:00 12/08/17 05:55 (Diflucan) 400 mg DAILY PO 11/26/17 09:00 12/08/17 08:40 (Dilaudid Pf Inj) 0.5 mg Q3H PRN IV PUSH 11/26/17 13:00 12/08/17 01:59 (Percocet 5-325 Mg) 1 tab Q4H PRN PO 11/26/17 13:00 (Percocet 10-325 Mg) 1 tab Q4H PRN PO 11/26/17 13:00 12/08/17 11:12 (Depakene) 500 mg Q8HR PO 11/28/17 14:00 12/08/17 05:56 Lactated Ringer's 1,000 ml @ 60 mls/hr [id number] IV 11/29/17 15:00 12/08/17 02:01 (Xanax) 0.5 mg Q8H PRN PO 11/30/17 22:00 12/08/17 08:40 Albumin Human 100 ml @ 60 mls/hr Q12H IV 12/04/17 17:00 12/08/17 04:05 Ceftriaxone Sodium 2000 mg/ Sodium Chloride 100 ml @ 200 mls/hr Q12H IV 12/05/17 15:00 12/08/17 02:01 (Lovenox Inj) 40 mg Q24H SQ 12/06/17 17:00 12/07/17 17:14 (Pepcid) 20 mg Q12HR PO 12/06/17 21:00 12/08/17 08:40 (Epogen Inj) 20,000 units DAILY@1400 SQ 12/08/17 14:00 12/10/17 14:00 Lines Line sites with no evidence of infection. Past Medical History Neuropathy involving the right leg h/o marsh right foot dorsum as a child. Schizoaffective disorder, Depressions Anxiety Past Surgical History None per patient. Allergies: Coded Allergies: diphenhydramine (Verified Adverse Reaction, Unknown, 11/08/17) Objective . Vital Signs Date Time Temp Pulse Resp B/P (MAP) Pulse Ox O2 Delivery O2 Flow Rate FiO2 12/12/17 14:22 98.6 98 18 120/80 94 12/12/17 12:00 98.6 99 16 119/78 (92) 94 12/12/17 11:07 94 Nasal Cannula 2.00 12/12/17 07:57 97.4 91 18 124/78 (93) 92 12/12/17 04:00 96.5 117 18 139/97 (111) 98 12/12/17 00:00 98.5 118 18 147/89 (108) 97 12/12/17 00:00 100 12/11/17 20:02 94 12/11/17 20:00 97.9 102 18 122/78 (93) 98 12/11/17 16:00 98.5 98 16 128/78 (95) 99 12/11/17 15:09 102 12/12/17 12/12/17 12/13/17 15:00 23:00 07:00 Intake Total 475 ml Balance 475 ml Blood Product IV Normal Saline Flush 475 ml . Laboratory Tests Test 12/12/17 07:05 White Blood Count 9.8 TH/MM3 Red Blood Count 2.35 MIL/MM3 Hemoglobin 6.8 GM/DL Hematocrit 20.1 % Mean Corpuscular Volume 85.8 FL Mean Corpuscular Hemoglobin 29.0 PG Mean Corpuscular Hemoglobin Concent 33.8 % Red Cell Distribution Width 19.3 % Platelet Count 222 TH/MM3 Mean Platelet Volume 7.5 FL Neutrophils (%) (Auto) 80.1 % Lymphocytes (%) (Auto) 6.4 % Monocytes (%) (Auto) 9.9 % Eosinophils (%) (Auto) 2.3 % Basophils (%) (Auto) 1.3 % Neutrophils # (Auto) 7.8 TH/MM3 Lymphocytes # (Auto) 0.6 TH/MM3 Monocytes # (Auto) 1.0 TH/MM3 Eosinophils # (Auto) 0.2 TH/MM3 Basophils # (Auto) 0.1 TH/MM3 CBC Comment DIFF FINAL Differential Comment Laboratory Tests Test 12/12/17 07:05 Blood Urea Nitrogen 6 MG/DL Creatinine 0.62 MG/DL Random Glucose 143 MG/DL Calcium Level 8.7 MG/DL Sodium Level 135 MEQ/L Potassium Level 3.6 MEQ/L Chloride Level 99 MEQ/L Carbon Dioxide Level 27.2 MEQ/L Anion Gap 9 MEQ/L Estimat Glomerular Filtration Rate 144 ML/MIN C-Reactive Protein 6.00 MG/DL Imaging Lower Extremity CT 11/15/17 Signed Impressions: Service Date/Time: Wednesday, November 15, 2017 13:22 - CONCLUSION: Extensive fluid surrounding the quadriceps musculature of the right thigh as well as air within the collection anteriorly and laterally which raises the possibility of abscess/infection. Fluid is also noted extending into the region of the gluteus muscles on the right. Diffuse subcutaneous edema the right thigh is noted. Compartment syndrome should be ruled out. Jez Chowdhury MD Abdomen/Pelvis CT 11/15/17 Signed Impressions: Service Date/Time: Wednesday, November 15, 2017 13:22 - CONCLUSION: The abnormal soft tissue mass now has compartmentalized fluid collections and absence of air in the right soft tissues of thigh and gluteal region. This probably represents improving inflammatory or infectious process such as abscess. Small bilateral pleural effusions persist with a new consolidation with air bronchogram in the left lower lobe. Ascitic fluid suggested in the pelvis Silvio Laguerre MD Chest X-Ray 11/14/17 0600 Signed Impressions: Service Date/Time: Tuesday, November 14, 2017 04:22 - CONCLUSION: 1. Left basilar airspace disease similar to November 12. Bertrand Smalls MD Lower Extremity Ultrasound 11/08/172011 Signed Impressions: Service Date/Time: Wednesday, November 08, 2017 20:41 - CONCLUSION: 1. Negative for deep venous thrombosis. There are mildly enlarged right inguinal lymph nodes. Bertrand Smalls MD Thoracic Spine MRI 11/08/17 Signed Impressions: Service Date/Time: Wednesday, November 08, 2017 22:01 - CONCLUSION: 1. Small bilateral pleural effusions. 2. No signal abnormalities in the thoracic vertebral bodies and no evidence of focal disc disease. Jace Bird MD Lumbar Spine MRI 11/08/17 Signed Impressions: Service Date/Time: Wednesday, November 08, 2017 22:01 - CONCLUSION: 1. No evidence of lumbar disc disease. 2. Soft tissue abnormality about the right gluteal region suggesting abscess with T2 prolongation and contrast enhancement ; this is incompletely included in the [id number] of the exam. 3. There is also abnormal signal within the marrow of the sacral and coccygeal marrow including contrast enhancement suggesting that the right thigh and gluteal abnormality may extend intraosseous, possibly osteomyelitis. Jace Bird MD Last Impressions Chest X-Ray 11/09/17 0000 Signed Impressions: Service Date/Time: Thursday, November 09, 2017 16:23 - CONCLUSION: Minimal infiltrate left base new from comparison study. Rodrick Ch MD FACR Lower Extremity Ultrasound 11/08/172011 Signed Impressions: Service Date/Time: Wednesday, November 08, 2017 20:41 - CONCLUSION: 1. Negative for deep venous thrombosis. There are mildly enlarged right inguinal lymph nodes. Bertrand Smalls MD Abdomen/Pelvis CT 11/08/172011 Signed Impressions: Service Date/Time: Wednesday, November 08, 2017 22:54 - CONCLUSION: 1. Abnormal appearance of the soft tissues of the proximal thigh and gluteal region with fluid and gas tracking between the rectus muscles and the anterior thigh muscles. No focal abnormal areas of enhancement. The combination of fluid and gas suggests either an infectious or necrotic process. 2. Nonobstructing small calcified stone mid pole left kidney and multiple left renal cysts. 3. Small bilateral pleural effusions. Jace Bird MD Thoracic Spine MRI 11/08/17 0000 Signed Impressions: Service Date/Time: Wednesday, November 08, 2017 22:01 - CONCLUSION: 1. Small bilateral pleural effusions. 2. No signal abnormalities in the thoracic vertebral bodies and no evidence of focal disc disease. Jace Bird MD Lumbar Spine MRI 11/08/17 0000 Signed Impressions: Service Date/Time: Wednesday, November 08, 2017 22:01 - CONCLUSION: 1. No evidence of lumbar disc disease. 2. Soft tissue abnormality about the right gluteal region suggesting abscess with T2 prolongation and contrast enhancement ; this is incompletely included in the [id number] of the exam. 3. There is also abnormal signal within the marrow of the sacral and coccygeal marrow including contrast enhancement suggesting that the right thigh and gluteal abnormality may extend intraosseous, possibly osteomyelitis. Jace Bird MD Physical Exam GENERAL: Alert, well nourished. SKIN: Warm and dry, no generalized rash HEAD: Atraumatic. Normocephalic. No temporal or scalp tenderness. EYES: Pupils equal round and reactive. Extraocular motions intact. No scleral icterus. No injection or drainage. ENT: Dry oral mucosa, no nasal discharge NECK: Trachea midline. Supple, nontender, no meningeal signs. CARDIOVASCULAR: HS audible. RESPIRATORY: Diffuse rhonchi bilaterally GASTROINTESTINAL: Abdomen soft, Colostomy in place with liquid stool. MUSCULOSKELETAL: RLE with dressing in place. NEUROLOGICAL: Awake and alert and interactive. Grossly nonfocal Psych cooperative IV line sites with no e.o infection. Assessment & Plan Remarks Severe sepsis present on admission. Staph coag neg bacteremia: 1 out of 4 bottles likely contaminant. E.coli and Strep, mixed anaerobes (beta lactamase positive) and Paz albicans , right thigh abscess/osteomyelitis, extending to pelvis/hip and R knee - S/P multiple dbridements Possible sacral osteomyelitis Schizoaffective disorder receives IM Haldol injections in the buttocks. Lower extremity neuropathy. Weight loss, loss of appetite Diarrhea check stool C. difficile Recommendations: Continue Ceftriaxone IV q12hrs dosing. Change Flagyl to oral Change Diflucan to oral Follow cultures Follow clinically. d.w pt syd clinical pharmacist about dosing for osteomyelitis for Diflucan. 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 dw patients mom she agrees to take him home once more stronger. Undergoing PT/ OT. María Upton MD Dec 12, 2017 14:27
[2017-12-12] MEDS: ALPRAZolam 0.5 MG TAB PO PRN ×2 (14:32→21:15)
--- NOTE | 2017-12-12 17:16 | PD.WCN.NOT ---
Wound Consult Description: New Ostomy Teaching per Dr Torres and Dr Manzano Communicated with: Patient Recommendation: Observe ostomy for moist pink/red color Release air by opening pouch at the flange Empty pouch of effluent when 1/3-1/2 full Change appliance every 5-7 days and PRN for leaks Additional Information: *Late entry* Patient seen earlier today for ostomy assessment and teaching. Ostomy Type: Colostomy (Loop) Surgeon: Too Torres MD Date of Surgery: Dec 05, 2017 Complete: Education materials (Left at bedside) Educated patient on: Emptying his pouch of effluent when 1/3-1/2 full. Additional information Patient seen earlier this am and helped him get up to the side of the bed to assist him in emptying his pouch that was 1/2 full of soft brown effluent. Patient demonstrated how to remove clip and empty pouch. Clip was then cleansed by typewriter assembly and parts inspector and given back to patient to place back on the pouch after wiping down the inside and outside bottom of the pouch. Patient stated that he called his RN Karuna for pain medication and she was supposed to be bringing it. Patient was assisted back to bed and given ice for his 7up as requested. Bhavani Carrillo [facility] CENTERMassimo Dec 12, 2017 17:16
[2017-12-12] MEDS: ENOXAPARIN SODIUM 40 MG/0.4 ML SYRINGE SQ SCH (18:25)
[2017-12-12] MEDS ORDERED: IOHEXOL 350 MG/ML 10 ML VIAL (for RAD DIAG) IVCONTRAST ONE (20:46)
--- NOTE | 2017-12-12 21:27 | RADRPT ---
EXAM DATE/TIME: 12/12/2017 20:22 [facility] COMPARISON: No previous studies available for comparison. INDICATIONS : Right groin pain. IV CONTRAST: 100 cc Omnipaque 350 (iohexol) IV ; Cumulative dose for multiple exams. RADIATION DOSE: 4.78 CTDIvol (mGy) MEDICAL HISTORY : None SURGICAL HISTORY : None. ENCOUNTER: Initial ACUITY: 1 day PAIN SCALE: 5/10 LOCATION: Right femur TECHNIQUE: Volumetric scanning of the femur was performed. Using automated exposure control and adjustment of t he mA and/or kV according to patient size, radiation dose was kept as low as reasonably achievable to obtain optimal diagnostic quality images. DICOM format image data is available electronically for review and comparison. FINDINGS: Multiple skin gloria are present in the left anterior thigh. Previous loculated air has resolved. Th ere is decrease in size of loculated fluid. However, there is a persistent loculated fluid collection in the anterior thigh musculature both medially and laterally measuring up to about 1.2 cm in AP almberto meter. These appear to join inferiorly and extend over a length of about 15 cm. There is persistent a bnormal edema and swelling in the gluteal region on the right. There is a 7 mm hyperdense area in the lateral thigh on image 108. It is unclear if this represents postsurgical change or a small area of hemorrhage or aneurysm. CONCLUSION: 1. Interval surgery with drainage of most of the thigh abscess. There is a residual loculated fluid c ollection anteriorly medial and lateral to the femur with measurements given above. Bertrand Smalls MD on December 12, 2017 at 21:21 Board Certified Radiologist. This report was verified electronically.
[2017-12-13] VITALS (8 sets, daily range): BP systolic 121–139; BP diastolic 81–96; PULSE 94–107; RESP 16–20; TEMP 96–99.5; O2SAT 90–100
[2017-12-13] MEDS: LACTATED RINGER'S 1000 ML INJ 1,000 ML IV SCH ×2 (02:25→19:05)
[2017-12-13] MEDS: CHLORHEXIDINE GLUCONATE 2 % 1 PACK (2 CLOTHS) TOP SCH (04:00)
[2017-12-13] MEDS: cefTRIAXone INJ 2,000 MG in SODIUM CHLORIDE 0.9% INJ 100 ML IV SCH ×2 (04:06→14:00)
[2017-12-13] MEDS: oxyCODONE/ACETAMINOPHEN 10 MG/325 MG TAB PO PRN ×5 (04:08→22:28)
[2017-12-13] MEDS: ALBUMIN 25% INJ 100 ML IV SCH ×2 (04:08→16:36)
[2017-12-13] MEDS: metroNIDAZOLE 500 MG TAB PO SCH ×3 (06:16→22:28)
[2017-12-13] MEDS: VALPROIC ACID 250 MG CAP PO SCH ×3 (06:17→22:28)
[2017-12-13] MEDS: NYSTATIN 100,000 UNIT/GM CREAM 15 GM TOPICAL SCH ×4 (06:21→16:37)
[2017-12-13 07:41] LABS: AUTOMATED NEUTROPHIL # 8.9 TH/MM3 (1.8-7.7); BASOPHIL # 0.1 TH/MM3 (0-0.2); BASOPHIL % 1.3 % (0.0-2.0); EOSINOPHIL # 0.3 TH/MM3 (0-0.4); EOSINOPHIL % 2.7 % (0.0-4.0); HEMATOCRIT 26.4 % (39.0-51.0); LYMPH % 6.6 % (9.0-44.0); LYMPHOCYTE # 0.8 TH/MM3 (1.0-4.8); MEAN CELL VOLUME 83.5 FL (80.0-100.0); MEAN CORPUSCULAR HEMOGLOBIN 28.6 PG (27.0-34.0); MEAN CORPUSCULAR HGB CONC 34.3 % (32.0-36.0); MEAN PLATELET VOLUME 7.5 FL (7.0-11.0); MONO % 12.2 % (0.0-8.0); MONOCYTE # 1.4 TH/MM3 (0-0.9); NEUT % 77.2 % (16.0-70.0); PLATELET COUNT 243 TH/MM3 (150-450); RED BLOOD COUNT 3.16 MIL/MM3 (4.50-5.90); RED CELL DISTRIBUTION WIDTH 17.7 % (11.6-17.2); WHITE BLOOD COUNT 11.5 TH/MM3 (4.0-11.0)
[2017-12-13] MEDS: CHLORHEXIDINE 0.12% (ORAL KIT) 15 ML CUP MT SCH ×2 (08:00→20:00)
[2017-12-13] MEDS: risperiDONE ODT 3 MG TAB PO SCH ×2 (09:00→22:30)
[2017-12-13] MEDS: FAMOTIDINE 20 MG TAB PO SCH ×2 (09:19→22:30)
[2017-12-13] MEDS: ARIPiprazole 5 MG TAB PO SCH (09:19)
[2017-12-13] MEDS: hydrOXYzine HCL 50 MG TAB PO SCH ×2 (09:19→22:28)
[2017-12-13] MEDS: ALPRAZolam 0.5 MG TAB PO PRN ×2 (09:19→18:03)
[2017-12-13] MEDS: SODIUM CHLORIDE 0.9% FLUSH 10 ML FLUSH IV FLUSH SCH ×2 (09:20→22:30)
--- NOTE | 2017-12-13 14:54 | HHI.PR ---
Subjective Remarks Follow-up type abscesses 12/13/17-patient seen and examined, no acute event overnight, afebrile, denies any significant lower extremity pain Objective Vitals Vital Signs Date Time Temp Pulse Resp B/P (MAP) Pulse Ox O2 Delivery O2 Flow Rate FiO2 12/13/17 12:28 99 2.00 12/13/17 12:00 98.8 97 19 139/96 (110) 100 12/13/17 08:00 97.8 94 18 138/92 (107) 90 12/13/17 04:00 99.5 101 20 136/96 (109) 99 12/13/17 02:31 99.1 96 20 135/87 94 12/12/17 23:21 98.1 93 18 133/80 98 12/12/17 23:01 97.9 93 20 123/80 96 12/12/17 20:00 99.1 98 20 135/97 (110) 97 12/12/17 16:00 97.3 98 18 126/84 (98) 95 12/12/17 15:52 98.4 94 17 103/60 99 I/O 12/12/17 12/12/17 12/12/17 12/13/17 12/13/17 12/13/17 07:00 15:00 23:00 07:00 15:00 23:00 Intake Total 1200 ml 475 ml 1760 ml 1150 ml Output Total 4375 ml 800 ml 2850 ml Balance -3175 ml 475 ml 960 ml -1700 ml Intake Oral 1200 ml 960 ml 720 ml Packed Cells 400 ml 400 ml Blood Product IV Normal Saline Flush 475 ml 400 ml 30 ml Output Urine Total 4200 ml 500 ml 2200 ml Stool Total 175 ml 300 ml 650 ml Result Diagram: 12/13/17 0533 12/12/17 0705 Imaging Last Impressions Lower Extremity CT 12/12/17 0000 Signed Impressions: Service Date/Time: Tuesday, December 12, 2017 20:22 - CONCLUSION: 1. Interval surgery with drainage of most of the thigh abscess. There is a residual loculated fluid collection anteriorly medial and lateral to the femur with measurements given above. Bertrand Smalls MD Chest X-Ray 11/30/17 0600 Signed Impressions: Service Date/Time: Thursday, November 30, 2017 05:14 - CONCLUSION: No significant change has occurred. Oscar Mcmanus MD Abdomen/Pelvis CT 11/15/17 0000 Signed Impressions: Service Date/Time: Wednesday, November 15, 2017 13:22 - CONCLUSION: The abnormal soft tissue mass now has compartmentalized fluid collections and absence of air in the right soft tissues of thigh and gluteal region. This probably represents improving inflammatory or infectious process such as abscess. Small bilateral pleural effusions persist with a new consolidation with air bronchogram in the left lower lobe. Ascitic fluid suggested in the pelvis Silvio Laguerre MD Lower Extremity Ultrasound 11/08/172011 Signed Impressions: Service Date/Time: Wednesday, November 08, 2017 20:41 - CONCLUSION: 1. Negative for deep venous thrombosis. There are mildly enlarged right inguinal lymph nodes. Bertrand Smalls MD Thoracic Spine MRI 11/08/17 0000 Signed Impressions: Service Date/Time: Wednesday, November 08, 2017 22:01 - CONCLUSION: 1. Small bilateral pleural effusions. 2. No signal abnormalities in the thoracic vertebral bodies and no evidence of focal disc disease. Jace Bird MD Lumbar Spine MRI 11/08/17 0000 Signed Impressions: Service Date/Time: Wednesday, November 08, 2017 22:01 - CONCLUSION: 1. No evidence of lumbar disc disease. 2. Soft tissue abnormality about the right gluteal region suggesting abscess with T2 prolongation and contrast enhancement ; this is incompletely included in the [id number] of the exam. 3. There is also abnormal signal within the marrow of the sacral and coccygeal marrow including contrast enhancement suggesting that the right thigh and gluteal abnormality may extend intraosseous, possibly osteomyelitis. Jace Bird MD Objective Remarks GENERAL: NAD SKIN: Warm and dry. HEAD: Normocephalic. EYES: No scleral icterus. No injection or drainage. NECK: Supple, trachea midline. No JVD or lymphadenopathy. CARDIOVASCULAR: Regular rate and rhythm without murmurs, gallops, or rubs. RESPIRATORY: Breath sounds equal bilaterally. No accessory muscle use. GASTROINTESTINAL: Abdomen soft, non-tender, nondistended. MUSCULOSKELETAL: No cyanosis, or edema. Dressing over bilateral lower extremity BACK: Nontender without obvious deformity. No CVA tenderness. Procedures 11/09/17 incision and drainage, irrigation and debridement of right hip abscess with placement of VAC dressing 11/11/17 removal of VAC device, irrigation and debridement of right gluteal hip abscess with placement of drain and replacement of VAC 11/16/17 irrigation and debridement of pelvic infection and abscess, irrigation and debridement of right thigh abscess, right knee arthrotomy with irrigation and debridement 11/16/17 incision and drainage, irrigation and debridement of complex lower extremity abscess with removal of subcutaneous tissue, fascia, and muscle, with application of VAC device 11/18/17 irrigation and debridement of right pelvis and hip, irrigation and debridement of right thigh, irrigation and debridement of right knee 11/21/17 irrigation and debridement of right hip, right thigh, and right knee. Application of wound VAC dressing 11/24/17 irrigation and debridement of right hip, right thigh, right knee. Secondary wound closure, application of wound VAC 11/30/17 I&D with skin grafting right thigh 12/01/17 Colonoscopy 12/05/17 colostomy A/P Problem List: (1) Abscess of lower leg ICD Code: L02.419 - Cutaneous abscess of limb, unspecified (2) Abscess of right hip ICD Code: L02.415 - Cutaneous abscess of right lower limb (3) Cellulitis and abscess of lower extremity ICD Code: L03.119 - Cellulitis of unspecified part of limb; L02.419 - Cutaneous abscess of limb, unspecified (4) Schizoaffective disorder, bipolar type ICD Code: F25.0 - Schizoaffective disorder, bipolar type Assessment and Plan 41-year-old man with Severe sepsis bacteremia with strep viridans thigh abscess Status post multiple surgeries S/p I&D with skin grafting right thigh 11/30. Currently on IV Rocephin, by mouth Flagyl and Diflucan per ID Continue wound care per ortho. Acute respiratory failure Resolved. oxygen and nebs as needed. Invasive adenocarcinoma of the rectum Anemia - Heme positive stools. GI consult appreciated. Mass was noted on colonoscopy. Pathology c/w mod diff invasive adenocarcinoma. Colorectal surgery, medical oncology and radiation oncology consults appreciated. - s/p diverting colostomy 12/05 per CRS. - oncology recommending to hold off on radiation until after chemo. -colorectal surgery following. -H/H dropped to 6.8/20.1; will transfuse with PRBC- continue to monitor H/H. Schizoaffective disorder - Continue Depakote, risperidone, Abilify. - Alprazolam as needed. -Appreciate input from psychiatry Hypokalemia-Improved. DVT prophylaxis: subq Lovenox. Amaury Lainez MD Dec 13, 2017 14:54
--- NOTE | 2017-12-13 15:15 | RADRPT ---
EXAM DATE/TIME: 12/12/2017 20:22 [place] COMPARISON: CT ABDOMEN & PELVIS W CONTRAST, November 15, 2017, 13:22. INDICATIONS : Abdomen pain. IV CONTRAST: 100 cc Omnipaque 350 (iohexol) IV ; Cumulative dose for multiple exams. ORAL CONTRAST: No oral contrast ingested. RADIATION DOSE: 4.78 CTDIvol (mGy) MEDICAL HISTORY : None SURGICAL HISTORY : None. ENCOUNTER: Initial ACUITY: 1 day PAIN SCALE: 5/10 LOCATION: Right abdomen TECHNIQUE: Volumetric scanning of the abdomen and pelvis was performed. Using automated exposure control and ad justment of the mA and/or kV according to patient size, radiation dose was kept as low as reasonably achievable to obtain optimal diagnostic quality images. DICOM format image data is available electro nically for review and comparison. FINDINGS: Comparison is November 15. Previous basilar airspace consolidation and pleural effusions have resolved . Diffuse anasarca has improved. No acute findings in the liver, spleen, adrenals, kidneys or pancreas. Stable left renal cysts. Galls tones present in the gallbladder. Within the pelvis there is a large mass in the rectal region measuring up to 8.4 x 12 cm. This compre sses the posterior aspect of the bladder. There are edematous changes in the gluteal musculature with abnormal fluid similar to November 15. No acute bony abnormalities. CONCLUSION: 1. Large rectal mass measuring up to 12 x 8.4 cm in with abnormal fluid in the gluteal musculature wh ich appears slightly less loculated than on November 15. There is also abnormal fluid and edematous sw elling in the proximal thigh musculature anteriorly. There is placement of a left lower quadrant colo stomy. 2. Bilateral pleural effusions and basilar airspace consolidation of the lungs has improved. Anasarca has improved. 3. Mild diffuse ileus. Bertrand Smalls MD on December 12, 2017 at 21:12 Board Certified Radiologist. This report was verified electronically.
[2017-12-13] MEDS: ENOXAPARIN SODIUM 40 MG/0.4 ML SYRINGE SQ SCH (16:36)
[2017-12-14] VITALS: BP 143/95; PULSE 116; RESP 17; TEMP 98.7; O2SAT 95
[2017-12-14 04:00] VITALS: BP 133/91; PULSE 120; RESP 17; TEMP 97.9; O2SAT 98
[2017-12-14] MEDS: CHLORHEXIDINE GLUCONATE 2 % 1 PACK (2 CLOTHS) TOP SCH (04:00)
[2017-12-14] MEDS: ALBUMIN 25% INJ 100 ML IV SCH ×2 (04:54→15:18)
[2017-12-14] MEDS: cefTRIAXone INJ 2,000 MG in SODIUM CHLORIDE 0.9% INJ 100 ML IV SCH ×2 (04:54→15:18)
[2017-12-14] MEDS: metroNIDAZOLE 500 MG TAB PO SCH ×3 (04:57→22:55)
[2017-12-14] MEDS: VALPROIC ACID 250 MG CAP PO SCH ×3 (04:57→22:55)
[2017-12-14] MEDS: oxyCODONE/ACETAMINOPHEN 10 MG/325 MG TAB PO PRN ×4 (04:58→19:48)
[2017-12-14] MEDS: SODIUM CHLORIDE 0.9% FLUSH 10 ML FLUSH IV FLUSH PRN (04:58)
[2017-12-14] MEDS: ALPRAZolam 0.5 MG TAB PO PRN ×2 (07:04→19:48)
[2017-12-14 08:00] VITALS: BP 132/88; PULSE 92; RESP 17; TEMP 97.4; O2SAT 99
[2017-12-14] MEDS: CHLORHEXIDINE 0.12% (ORAL KIT) 15 ML CUP MT SCH ×2 (08:00→20:00)
[2017-12-14] MEDS: FAMOTIDINE 20 MG TAB PO SCH ×2 (08:22→19:47)
[2017-12-14] MEDS: FLUCONAZOLE 200 MG TAB PO SCH (08:23)
[2017-12-14] MEDS: ARIPiprazole 5 MG TAB PO SCH (08:23)
[2017-12-14] MEDS: hydrOXYzine HCL 50 MG TAB PO SCH ×2 (08:23→19:47)
[2017-12-14] MEDS: SODIUM CHLORIDE 0.9% FLUSH 10 ML FLUSH IV FLUSH SCH ×2 (08:23→21:00)
[2017-12-14] MEDS: risperiDONE ODT 3 MG TAB PO SCH ×2 (08:25→19:47)
[2017-12-14] MEDS: LACTATED RINGER'S 1000 ML INJ 1,000 ML IV SCH (11:45)
[2017-12-14 12:00] VITALS: BP 129/82; PULSE 88; RESP 18; TEMP 96.7; O2SAT 98
[2017-12-14] MEDS: NYSTATIN 100,000 UNIT/GM CREAM 15 GM TOPICAL SCH ×4 (12:00→22:57)
--- NOTE | 2017-12-14 12:13 | PD.ORT.PN ---
Subjective Subjective Remarks POD 15 s/p I&D right thigh with with skin grafting stable. awake and alert. reports he feels good. reports pain in right knee but otherwise no complaints. Objective Vitals Vital Signs Date Time Temp Pulse Resp B/P (MAP) Pulse Ox O2 Delivery O2 Flow Rate FiO2 12/14/17 12:00 96.7 88 18 129/82 (98) 98 12/14/17 08:00 97.4 92 17 132/88 (103) 99 12/14/17 04:00 97.9 120 17 133/91 (105) 98 12/14/17 00:00 98.7 116 17 143/95 (111) 95 12/13/17 20:00 96.0 101 16 121/81 (94) 96 12/13/17 20:00 101 12/13/17 17:45 98 Nasal Cannula 2.00 12/13/17 16:00 98.4 107 17 124/88 (100) 98 12/13/17 12:28 99 2.00 I/O 12/13/17 12/13/17 12/13/17 12/14/17 12/14/17 12/14/17 07:00 15:00 23:00 07:00 15:00 23:00 Intake Total 1150 ml 200 ml 1495 ml 480 ml Output Total 2850 ml 2800 ml 2100 ml Balance -1700 ml 200 ml -1305 ml -1620 ml Intake Oral 720 ml 1495 ml 480 ml IV Total 200 ml Packed Cells 400 ml Blood Product IV Normal Saline Flush 30 ml Output Urine Total 2200 ml 2300 ml 2000 ml Stool Total 650 ml 500 ml 100 ml Result Diagram: 12/13/17 0533 12/12/17 0705 Imaging Last 24 hours Impressions Chest X-Ray 11/30/17 0600 Signed Impressions: Service Date/Time: Thursday, November 30, 2017 05:14 - CONCLUSION: No significant change has occurred. Oscar Mcmanus MD Objective Remarks RLE: dressings clean and dry. removed. graft and incisions visualized. graft appears healthy and healing well. There is one area at superior apex of graft that dehisced and does not appear to have healed. no drainage. area is approx 4x2cm. Skin edge is loose and I can retract slightly. nontender. no fluctuance or overt swelling noted. Incisions are healing well. LLE: harvest site healing well. remaining xeroform removed at bedside. Assessment & Plan Assessment and Plan 1) Right Leg Infection s/p I&D with skin grafting right thigh - POD 15 -daily dressing changes of right leg with xeroform/ABD/BARRY -xeroform removed from harvest site on left leg. proceed with daily dressing changes with just primapore -WBAT -CM for DC planning -ortho surgeries complete -reviewed CT scan and fuid collection. At this point, inclined to perform daily dressing changes and monitor. Patient not exuding any outright symptoms of infection and graft is healing well. will discuss further with Sy -will consult IR for aspiration and drain placement of right thigh -would hold any DC plans at this time Gigi Rodríguez/First Laverne BOSS Dec 14, 2017 12:13
--- NOTE | 2017-12-14 13:58 | HHI.PR ---
Subjective Remarks Follow-up type abscesses 12/13/17-patient seen and examined, no acute event overnight, afebrile, denies any significant lower extremity pain 12/14/17-patient seen and examined, patient reports some right knee pain otherwise afebrile. Case discussed with ID Objective Vitals Vital Signs Date Time Temp Pulse Resp B/P (MAP) Pulse Ox O2 Delivery O2 Flow Rate FiO2 12/14/17 12:00 96.7 88 18 129/82 (98) 98 12/14/17 08:00 97.4 92 17 132/88 (103) 99 12/14/17 04:00 97.9 120 17 133/91 (105) 98 12/14/17 00:00 98.7 116 17 143/95 (111) 95 12/13/17 20:00 96.0 101 16 121/81 (94) 96 12/13/17 20:00 101 12/13/17 17:45 98 Nasal Cannula 2.00 12/13/17 16:00 98.4 107 17 124/88 (100) 98 I/O 12/13/17 12/13/17 12/13/17 12/14/17 12/14/17 12/14/17 07:00 15:00 23:00 07:00 15:00 23:00 Intake Total 1150 ml 200 ml 1495 ml 480 ml Output Total 2850 ml 2800 ml 2100 ml Balance -1700 ml 200 ml -1305 ml -1620 ml Intake Oral 720 ml 1495 ml 480 ml IV Total 200 ml Packed Cells 400 ml Blood Product IV Normal Saline Flush 30 ml Output Urine Total 2200 ml 2300 ml 2000 ml Stool Total 650 ml 500 ml 100 ml Result Diagram: 12/13/17 0533 12/12/17 0705 Imaging Last Impressions Lower Extremity CT 12/12/17 0000 Signed Impressions: Service Date/Time: Tuesday, December 12, 2017 20:22 - CONCLUSION: 1. Interval surgery with drainage of most of the thigh abscess. There is a residual loculated fluid collection anteriorly medial and lateral to the femur with measurements given above. Bertrand Samlls MD Abdomen/Pelvis CT 12/12/17 0000 Signed Impressions: Service Date/Time: Tuesday, December 12, 2017 20:22 - CONCLUSION: 1. Large rectal mass measuring up to 12 x 8.4 cm in with abnormal fluid in the gluteal musculature which appears slightly less loculated than on November 15. There is also abnormal fluid and edematous swelling in the proximal thigh musculature anteriorly. There is placement of a left lower quadrant colostomy. 2. Bilateral pleural effusions and basilar airspace consolidation of the lungs has improved. Anasarca has improved. 3. Mild diffuse ileus. Bertrand Smalls MD Chest X-Ray 11/30/17 0600 Signed Impressions: Service Date/Time: Thursday, November 30, 2017 05:14 - CONCLUSION: No significant change has occurred. Oscar Mcmanus MD Lower Extremity Ultrasound 11/08/172011 Signed Impressions: Service Date/Time: Wednesday, November 08, 2017 20:41 - CONCLUSION: 1. Negative for deep venous thrombosis. There are mildly enlarged right inguinal lymph nodes. Bertrand Smalls MD Thoracic Spine MRI 11/08/17 0000 Signed Impressions: Service Date/Time: Wednesday, November 08, 2017 22:01 - CONCLUSION: 1. Small bilateral pleural effusions. 2. No signal abnormalities in the thoracic vertebral bodies and no evidence of focal disc disease. Jace Bird MD Lumbar Spine MRI 11/08/17 0000 Signed Impressions: Service Date/Time: Wednesday, November 08, 2017 22:01 - CONCLUSION: 1. No evidence of lumbar disc disease. 2. Soft tissue abnormality about the right gluteal region suggesting abscess with T2 prolongation and contrast enhancement ; this is incompletely included in the [id number] of the exam. 3. There is also abnormal signal within the marrow of the sacral and coccygeal marrow including contrast enhancement suggesting that the right thigh and gluteal abnormality may extend intraosseous, possibly osteomyelitis. Jace Bird MD Objective Remarks GENERAL: NAD SKIN: Warm and dry. HEAD: Normocephalic. EYES: No scleral icterus. No injection or drainage. NECK: Supple, trachea midline. No JVD or lymphadenopathy. CARDIOVASCULAR: Regular rate and rhythm without murmurs, gallops, or rubs. RESPIRATORY: Breath sounds equal bilaterally. No accessory muscle use. GASTROINTESTINAL: Abdomen soft, non-tender, nondistended. MUSCULOSKELETAL: No cyanosis, or edema. Dressing over bilateral lower extremity.Right knee effusion BACK: Nontender without obvious deformity. No CVA tenderness. Procedures 11/09/17 incision and drainage, irrigation and debridement of right hip abscess with placement of VAC dressing 11/11/17 removal of VAC device, irrigation and debridement of right gluteal hip abscess with placement of drain and replacement of VAC 11/16/17 irrigation and debridement of pelvic infection and abscess, irrigation and debridement of right thigh abscess, right knee arthrotomy with irrigation and debridement 11/16/17 incision and drainage, irrigation and debridement of complex lower extremity abscess with removal of subcutaneous tissue, fascia, and muscle, with application of VAC device 11/18/17 irrigation and debridement of right pelvis and hip, irrigation and debridement of right thigh, irrigation and debridement of right knee 11/21/17 irrigation and debridement of right hip, right thigh, and right knee. Application of wound VAC dressing 11/24/17 irrigation and debridement of right hip, right thigh, right knee. Secondary wound closure, application of wound VAC 11/30/17 I&D with skin grafting right thigh 12/01/17 Colonoscopy 12/05/17 colostomy A/P Problem List: (1) Abscess of lower leg ICD Code: L02.419 - Cutaneous abscess of limb, unspecified (2) Abscess of right hip ICD Code: L02.415 - Cutaneous abscess of right lower limb (3) Cellulitis and abscess of lower extremity ICD Code: L03.119 - Cellulitis of unspecified part of limb; L02.419 - Cutaneous abscess of limb, unspecified (4) Schizoaffective disorder, bipolar type ICD Code: F25.0 - Schizoaffective disorder, bipolar type (5) Knee effusion, right ICD Code: M25.461 - Effusion, right knee Assessment and Plan 41-year-old man with Severe sepsis bacteremia with strep viridans thigh abscess Status post multiple surgeries S/p I&D with skin grafting right thigh 11/30. Currently on IV Rocephin, by mouth Flagyl and Diflucan per ID Continue wound care per ortho. Right knee effusion per Lower extremity CT 12/12/17 IR to be consulted for aspiration and drain placement Case discussed with ID 12/14/17 Orthopedic surgery following Acute respiratory failure Resolved. oxygen and nebs as needed. Invasive adenocarcinoma of the rectum Anemia - Heme positive stools. GI consult appreciated. Mass was noted on colonoscopy. Pathology c/w mod diff invasive adenocarcinoma. Colorectal surgery, medical oncology and radiation oncology consults appreciated. - s/p diverting colostomy 12/05 per CRS. - oncology recommending to hold off on radiation until after chemo. -colorectal surgery following. -s/p 1 unit PRBC transfused 12/13/17- continue to monitor H/H. Schizoaffective disorder - Continue Depakote, risperidone, Abilify. - Alprazolam as needed. -Appreciate input from psychiatry Hypokalemia-Improved. DVT prophylaxis: jaden Lovenox. Amaury Lainez MD Dec 14, 2017 13:58
[2017-12-14] MEDS: ENOXAPARIN SODIUM 40 MG/0.4 ML SYRINGE SQ SCH (15:18)
--- NOTE | 2017-12-14 16:58 | PD.WCN.NOT ---
Wound Consult Description: New Ostomy Teaching per Dr Torres and Dr Manzano Communicated with: LUIS Gaona Patient JIMY Wright Recommendation: Observe ostomy for moist pink/red color Release air by opening pouch at the flange Empty pouch of effluent when 1/3-1/2 full Change appliance every 5-7 days and PRN for leaks Additional Information: Patient seen on [address] [place] [address] for ostomy assessment, teaching, and appliance change using 4" cut to fit due to carlos in place. Ostomy Type: Colostomy (Loop) Surgeon: Too Torres MD Date of Surgery: Dec 05, 2017 Complete: Education materials (Left at bedside) Educated patient on: Removing wafer with adhesive removal Cleanse peristomal skin with water only Completely dry the peristomal skin and assess for any skin breakdown Use skin prep if desired to create tacky surface for wafer to adhere Apply wafer around stoma and hold onto with gloved hand to warm Apply pouch and close with clip Additional information Patient seen on [address] [place] [address] for ostomy assessment, teaching, and appliance change. Upon assessing the pouching system it was noted to be turning a appliance installer color @ 12 o'clock indicating that the wafer was breaking down and getting ready to lift and possibly leak. Supplies were ordered from [facility] and obtained for appliance change. Patient assisted in removing wafer and cleansing skin. Stoma was measured, 1 3/4", with template from ostomy kit. 4" cut to fit wafer was then cut to fit stoma size. Stoma is red, round, moist, edematous, moderately protruding, functioning with mucus and soft brown effluent. Carlos is noted in place with peristomal skin unremarkable. Appliance was removed using adhesive removal wipes. Peristomal skin was cleansed with water and dried with a towel. Stoma was measured and peristomal skin was prepped with Cavilon skin barrier film and allowed to air dry. New cut to fit wafer was applied and pouch was secured. Patient closed pouch with clip and held his hand over new appliance to warm. Patient had no questions at this time and states that he will continue to practice emptying the pouch and taking care of this himself. Bhavani Carrillo [facility] Dec 14, 2017 16:58
[2017-12-14 17:41] VITALS: O2SAT 98
[2017-12-14 20:00] VITALS: BP 137/86; PULSE 97; RESP 16; TEMP 98.6; O2SAT 100
[2017-12-15] VITALS (9 sets, daily range): BP systolic 125–151; BP diastolic 77–93; PULSE 91–113; RESP 16–20; TEMP 96.1–100.7; O2SAT 93–100
[2017-12-15] MEDS: cefTRIAXone INJ 2,000 MG in SODIUM CHLORIDE 0.9% INJ 100 ML IV SCH ×2 (02:59→14:45)
[2017-12-15] MEDS: CHLORHEXIDINE GLUCONATE 2 % 1 PACK (2 CLOTHS) TOP SCH (02:59)
[2017-12-15] MEDS: oxyCODONE/ACETAMINOPHEN 10 MG/325 MG TAB PO PRN ×6 (03:02→22:53)
[2017-12-15] MEDS: LACTATED RINGER'S 1000 ML INJ 1,000 ML IV SCH ×2 (04:25→20:13)
[2017-12-15] MEDS: ALBUMIN 25% INJ 100 ML IV SCH ×2 (04:50→17:14)
[2017-12-15] MEDS: ALPRAZolam 0.5 MG TAB PO PRN ×3 (04:51→20:14)
[2017-12-15] MEDS: metroNIDAZOLE 500 MG TAB PO SCH ×3 (04:51→20:14)
[2017-12-15] MEDS: NYSTATIN 100,000 UNIT/GM CREAM 15 GM TOPICAL SCH ×4 (04:51→22:54)
[2017-12-15] MEDS: VALPROIC ACID 250 MG CAP PO SCH ×3 (04:51→20:13)
[2017-12-15] MEDS: CHLORHEXIDINE 0.12% (ORAL KIT) 15 ML CUP MT SCH ×2 (08:00→20:00)
[2017-12-15] MEDS: risperiDONE ODT 3 MG TAB PO SCH ×2 (09:00→20:13)
--- NOTE | 2017-12-15 10:56 | HHI.PR ---
Subjective Remarks Follow-up type abscesses 12/13/17-patient seen and examined, no acute event overnight, afebrile, denies any significant lower extremity pain 12/14/17-patient seen and examined, patient reports some right knee pain otherwise afebrile. Case discussed with ID 12/15/17-patient seen and examined, nothing by mouth and heading for special for drainage of right knee effusion. Afebrile. Objective Vitals Vital Signs Date Time Temp Pulse Resp B/P (MAP) Pulse Ox O2 Delivery O2 Flow Rate FiO2 12/15/17 08:00 96.9 91 16 127/77 (94) 97 12/15/17 04:00 98.6 103 16 134/81 (98) 95 12/15/17 00:00 98.6 104 16 126/88 (101) 94 12/14/17 20:00 98.6 97 16 137/86 (103) 100 12/14/17 17:41 98 21 12/14/17 12:00 96.7 88 18 129/82 (98) 98 I/O 12/14/17 12/14/17 12/14/17 12/15/17 12/15/17 12/15/17 07:00 15:00 23:00 07:00 15:00 23:00 Intake Total 480 ml 480 ml 300 ml Output Total 2100 ml 1700 ml 2800 ml Balance -1620 ml -1220 ml -2500 ml Intake Oral 480 ml 480 ml 0 ml IV Total 300 ml Output Urine Total 2000 ml 1500 ml 2500 ml Stool Total 100 ml 200 ml 300 ml Result Diagram: 12/13/17 0533 12/12/17 0705 Objective Remarks GENERAL: NAD SKIN: Warm and dry. HEAD: Normocephalic. EYES: No scleral icterus. No injection or drainage. NECK: Supple, trachea midline. No JVD or lymphadenopathy. CARDIOVASCULAR: Regular rate and rhythm without murmurs, gallops, or rubs. RESPIRATORY: Breath sounds equal bilaterally. No accessory muscle use. GASTROINTESTINAL: Abdomen soft, non-tender, nondistended. MUSCULOSKELETAL: No cyanosis, or edema. Dressing over bilateral lower extremity.Right knee effusion BACK: Nontender without obvious deformity. No CVA tenderness. Procedures 11/09/17 incision and drainage, irrigation and debridement of right hip abscess with placement of VAC dressing 11/11/17 removal of VAC device, irrigation and debridement of right gluteal hip abscess with placement of drain and replacement of VAC 11/16/17 irrigation and debridement of pelvic infection and abscess, irrigation and debridement of right thigh abscess, right knee arthrotomy with irrigation and debridement 11/16/17 incision and drainage, irrigation and debridement of complex lower extremity abscess with removal of subcutaneous tissue, fascia, and muscle, with application of VAC device 11/18/17 irrigation and debridement of right pelvis and hip, irrigation and debridement of right thigh, irrigation and debridement of right knee 11/21/17 irrigation and debridement of right hip, right thigh, and right knee. Application of wound VAC dressing 11/24/17 irrigation and debridement of right hip, right thigh, right knee. Secondary wound closure, application of wound VAC 11/30/17 I&D with skin grafting right thigh 12/01/17 Colonoscopy 12/05/17 colostomy A/P Problem List: (1) Abscess of lower leg ICD Code: L02.419 - Cutaneous abscess of limb, unspecified (2) Abscess of right hip ICD Code: L02.415 - Cutaneous abscess of right lower limb (3) Cellulitis and abscess of lower extremity ICD Code: L03.119 - Cellulitis of unspecified part of limb; L02.419 - Cutaneous abscess of limb, unspecified (4) Schizoaffective disorder, bipolar type ICD Code: F25.0 - Schizoaffective disorder, bipolar type (5) Knee effusion, right ICD Code: M25.461 - Effusion, right knee Assessment and Plan 41-year-old man with Severe sepsis bacteremia with strep viridans thigh abscess Status post multiple surgeries S/p I&D with skin grafting right thigh 11/30. Currently on IV Rocephin, by mouth Flagyl and Diflucan per ID Continue wound care per ortho. Right knee effusion per Lower extremity CT 12/12/17 IR to be consulted for aspiration and drain placement possible today 12/15/17 Orthopedic surgery following Acute respiratory failure Resolved. oxygen and nebs as needed. Invasive adenocarcinoma of the rectum Anemia - Heme positive stools. GI consult appreciated. Mass was noted on colonoscopy. Pathology c/w mod diff invasive adenocarcinoma. Colorectal surgery, medical oncology and radiation oncology consults appreciated. - s/p diverting colostomy 12/05 per CRS. - oncology recommending to hold off on radiation until after chemo. -colorectal surgery following. -s/p unit PRBC transfused 12/13/17- continue to monitor H/H. Schizoaffective disorder - Continue Depakote, risperidone, Abilify. - Alprazolam as needed. -Appreciate input from psychiatry Hypokalemia-Improved. DVT prophylaxis: subq Lovenox. Amaury Lainez MD Dec 15, 2017 10:56
[2017-12-15] MEDS: FLUCONAZOLE 200 MG TAB PO SCH (11:19)
[2017-12-15] MEDS: ARIPiprazole 5 MG TAB PO SCH (11:19)
[2017-12-15] MEDS: hydrOXYzine HCL 50 MG TAB PO SCH ×2 (11:19→20:11)
[2017-12-15] MEDS: SODIUM CHLORIDE 0.9% FLUSH 10 ML FLUSH IV FLUSH SCH ×2 (11:20→20:11)
[2017-12-15] MEDS: FAMOTIDINE 20 MG TAB PO SCH ×2 (11:20→20:13)
--- NOTE | 2017-12-15 12:09 | PD.ORT.PN ---
Subjective Subjective Remarks POD 16 s/p I&D right thigh with with skin grafting stable. awake and alert. reports he feels good. reports pain in right knee but otherwise no complaints. went down for US guided aspirate today Objective Vitals Vital Signs Date Time Temp Pulse Resp B/P (MAP) Pulse Ox O2 Delivery O2 Flow Rate FiO2 12/15/17 10:25 97.2 99 18 125/84 (98) 100 12/15/17 09:40 97.2 98 18 135/88 (104) 100 12/15/17 09:27 96.1 101 18 133/85 (101) 99 12/15/17 08:00 96.9 91 16 127/77 (94) 97 12/15/17 04:00 98.6 103 16 134/81 (98) 95 12/15/17 00:00 98.6 104 16 126/88 (101) 94 12/14/17 20:00 98.6 97 16 137/86 (103) 100 12/14/17 17:41 98 21 I/O 12/14/17 12/14/17 12/14/17 12/15/17 12/15/17 12/15/17 07:00 15:00 23:00 07:00 15:00 23:00 Intake Total 480 ml 480 ml 300 ml Output Total 2100 ml 1700 ml 2800 ml Balance -1620 ml -1220 ml -2500 ml Intake Oral 480 ml 480 ml 0 ml IV Total 300 ml Output Urine Total 2000 ml 1500 ml 2500 ml Stool Total 100 ml 200 ml 300 ml Result Diagram: 12/13/17 0533 12/12/17 0705 Imaging Last 24 hours Impressions Chest X-Ray 11/30/17 0600 Signed Impressions: Service Date/Time: Thursday, November 30, 2017 05:14 - CONCLUSION: No significant change has occurred. Oscar Mcmanus MD Objective Remarks RLE: dressings clean and dry. removed. graft and incisions visualized. graft appears healthy and healing well. There is one area at superior apex of graft that dehisced and does not appear to have healed. no drainage. area is approx 4x2cm. Skin edge is loose and I can retract slightly. nontender. no fluctuance or overt swelling noted. Incisions are healing well. LLE: harvest site healing well. remaining xeroform removed at bedside. Assessment & Plan Assessment and Plan 1) Right Leg Infection s/p I&D with skin grafting right thigh - POD 16 -daily dressing changes of right leg with xeroform/ABD/BARRY -xeroform removed from harvest site on left leg. proceed with daily dressing changes with just primapore -WBAT -CM for DC planning -ortho surgeries complete -US guided aspirate was unable to yield much fluid or locate it on ultrasound. aspirated 0.2cc and radiologist reported that did not look purulent or like infection -at this point, ortho cleared for DC home -resumed diet and lovenox -continue daily dressing changes at home -follow up with Sy or PA in 2 weeks Gigi Rodríguez/First Laverne BOSS Dec 15, 2017 12:09
--- NOTE | 2017-12-15 12:35 | PD.WCN.NOT ---
Wound Consult Description: New Ostomy Teaching per Dr Torres and Dr Manzano Communicated with: LUIS Gaona Patient Recommendation: Observe ostomy for moist pink/red color Release air by opening pouch at the flange Empty pouch of effluent when 1/3-1/2 full Change appliance every 5-7 days and PRN for leaks Remove carlos when ordered by physician Additional Information: Patient seen on [address] [place] [address] for ostomy assessment. Patient was sitting up in chair complaining of pain. Patient states that they took his IV Dilaudid away. It was explained to patient that they were probably getting ready to send him home and he would not be able to take that after being discharged. Patient states understanding. Ostomy Type: Colostomy (Loop) Surgeon: Too Torres MD Date of Surgery: Dec 05, 2017 Complete: Starter kit, Education materials (Left at bedside), Rx (Script left on chart for possible dc soon.) Educated patient on: Emptying pouch when 1/3-1/2 full Changing out entire pouching system every 5-7 days and PRN for leaks Cleansing peristomal skin with water and patting dry before new wafer is placed Measuring stoma with each appliance change Obtaining supplies for stoma based on stoma measurements, currently 1 3/4" requiring appliance size 2 3/4" Additional information Patient seen on [place] for ostomy assessment and teaching. Carlos is still noted in place on POD#10. Call placed to DR Kessler office. Appliance in tact and noted without leaks. Bhavani Carrillo [facility] Dec 15, 2017 12:35
[2017-12-15] MEDS: GABAPENTIN 100 MG CAP PO SCH ×2 (13:05→17:15)
[2017-12-15] MEDS ORDERED: LIDOCAINE HCL 1% 20 ML VIAL ONE (14:43)
--- NOTE | 2017-12-15 15:58 | PD.ONC.PN ---
Subjective Subjective Remarks Met with mother and patient. Discussed risks and benefits of Xeloda. Mother is pending completing application for SSI, waiting to have her appt w/ case management rescheduled Objective Data Date Time Temp Pulse Resp B/P (MAP) Pulse Ox O2 Delivery O2 Flow Rate FiO2 12/15/17 12:00 96.5 91 17 144/93 (110) 100 12/15/17 10:25 97.2 99 18 125/84 (98) 100 12/15/17 09:40 97.2 98 18 135/88 (104) 100 12/15/17 09:27 96.1 101 18 133/85 (101) 99 12/15/17 08:00 96.9 91 16 127/77 (94) 97 12/15/17 04:00 98.6 103 16 134/81 (98) 95 12/15/17 00:00 98.6 104 16 126/88 (101) 94 12/14/17 20:00 98.6 97 16 137/86 (103) 100 12/14/17 17:41 98 21 12/15/17 12/15/17 12/15/17 07:00 15:00 23:00 Intake Total 300 ml Output Total 2800 ml Balance -2500 ml Result Diagram: 12/13/17 0533 12/12/17 0705 Culture Results Microbiology Date/Time Source Procedure Growth Status 12/15/17 10:20 Abscess Thigh Fungal Smear - Final NO FUNGAL ELEMENTS SEEN. Resulted 12/15/17 10:20 Abscess Thigh Fungal Culture Pending Resulted 12/15/17 10:20 Abscess Thigh Gram Stain - Final Resulted 12/15/17 10:20 Abscess Thigh Wound Culture Pending Resulted Administered Medications Medications (Trade) Dose Ordered Sig/Mega Route PRN Reason Start Time Stop Time Status Last Admin Dose Admin Hydroxyzine HCl (Atarax) 50 mg BID PO 11/09/17 09:00 12/15/17 11:19 Risperidone (risperDAL) 3 mg DAILY PO 11/09/17 09:00 Future Hold 11/13/17 08:02 Sodium Chloride (NS Flush) 2 ml UNSCH PRN IV FLUSH FLUSH AFTER USING IV ACCESS 11/08/17 23:15 12/14/17 04:58 Sodium Chloride (NS Flush) 2 ml BID IV FLUSH 11/09/17 09:00 12/15/17 11:20 Acetaminophen (Tylenol) 650 mg Q6H PRN PO PAIN 1-2 AND/OR FEVER >101F 11/08/17 23:15 11/11/17 04:42 Temazepam (Restoril) 15 mg HS PRN PO INSOMNIA 11/08/17 23:15 11/27/17 00:52 Albuterol/ Ipratropium (Duoneb Neb) 1 ampule Q2HR NEB PRN INH WHEEZING 11/08/17 23:15 11/20/17 14:49 Miscellaneous Information 1 Q361D XX 11/08/17 23:15 11/08/17 01:00 Chlorhexidine Gluconate (Chlorhexidine 2% Cloth) Taper DAILY@04 TOP 11/09/17 04:00 11/05/18 03:59 11/25/17 04:00 Chlorhexidine Gluconate (Peridex 0.12% Liq) 15 ml BID@08,20 MT 11/09/17 20:00 12/11/17 08:00 Risperidone (risperDAL M-TAB) 3 mg Q12HR PO 11/13/17 21:00 12/15/17 09:00 Nystatin (Mycostatin Cream) 1 applic Q6HR TOPICAL 11/15/17 18:00 12/14/17 22:57 Aripiprazole (Abilify) 5 mg DAILY PO 11/17/17 14:45 12/15/17 11:19 Metronidazole (Flagyl) 500 mg Q8HR PO 11/25/17 14:00 12/15/17 14:45 Fluconazole (Diflucan) 400 mg DAILY PO 11/26/17 09:00 12/15/17 11:19 Oxycodone/ Acetaminophen (Percocet 10-325 Mg) 1 tab Q4H PRN PO PAIN SCALE 7 TO 10 11/26/17 13:00 12/15/17 15:02 Valproic Acid (Depakene) 500 mg Q8HR PO 11/28/17 14:00 12/15/17 14:45 Lactated Ringer's 1,000 ml @ 60 mls/hr [id number] IV 11/29/17 15:00 12/09/17 17:13 Alprazolam (Xanax) 0.5 mg Q8H PRN PO anxiety 11/30/17 22:00 12/15/17 13:05 Albumin Human 100 ml @ 60 mls/hr Q12H IV 12/04/17 17:00 12/15/17 04:50 Ceftriaxone Sodium 2000 mg/ Sodium Chloride 100 ml @ 200 mls/hr Q12H IV 12/05/17 15:00 12/15/17 14:45 Enoxaparin Sodium (Lovenox Inj) 40 mg Q24H SQ 12/06/17 17:00 Future hold 12/14/17 15:18 Famotidine (Pepcid) 20 mg Q12HR PO 12/06/17 21:00 12/15/17 11:20 Gabapentin (Neurontin) 200 mg TID PO 12/15/17 13:00 12/15/17 13:05 Objective Remarks GENERAL: Thin, wide eyed, anxious appearing man, looks older than stated age. SKIN: Warm and dry. Dressing R leg and L leg, R knee swelling. HEAD: Normocephalic. EYES: No scleral icterus. No injection or drainage. NECK: Supple, trachea midline. No JVD or lymphadenopathy. LYMPHATIC: No adenopathy. CARDIOVASCULAR: Regular rate and rhythm without murmurs. RESPIRATORY: Breath sounds equal bilaterally. No accessory muscle use. GASTROINTESTINAL: Abdomen soft, non-tender, nondistended. Colostomy pink with liquid stool in bag. EXTREMITIES: No cyanosis, or edema. MUSCULOSKELETAL: Adequate muscle tone. Assessment/Plan Problem List: (1) Colorectal cancer ICD Codes: C19 - Malignant neoplasm of rectosigmoid junction Plan: --s/p diverting colostomy, 12/05/17 --will plan follow up in clinic. --will wait to start XRT until infections resolve. --fs faxed 12/07/17. Discussed with rad onc and ID. Concern from tx of the area with XRT would impact BM, cause BM suppression and possible impact healing. Discussed with patient option of tx with Xeloda which is not too myelosuppressive. It hopes to control his disease, while he continues to heal and take abx therapy. ID anticipate abx/healing for another 8 weeks. Pt offered information on Xeloda. 12/08/17: discussed plan for Xeloda with patient and mother. patient and mother are both on board with plan to give xeloda. however, patient's mother expressed serious concerns about the patient's ability to care for himself and her ability to care for him when discharged home. she would prefer the patient either stay inpatient or go to rehab. she plans to call and speak with the casey saw operator about her concerns about that today. 12/15/17. Advised pt and mother follow up with case management. They will need a green card and follow up appt at [facility] next week. Noted cleared by ortho. Abx therapy per ID. Colostomy site functioning. Assessment 41y/o male with newly diagnosed colorectal cancer. history of schizoaffective, disorder, depression, anxiety. HPI (brought forward for continuity of care) presented to the emergency room on November 08, 2017 with sepsis. Ultrasound of the lower extremity showed mildly enlarged right inguinal lymph node. CT scan of the abdomen and pelvis showed abnormal appearance of the soft tissue of the proximal thigh and gluteal region with fluid and gas tracking between the rectus muscle and anterior thigh muscle. He also had small bilateral pleural effusions. He was referred to general surgery and came under the care of Dr. Bertrand Campos who performed incision and drainage and debridement of the right hip abscess with placement of a VAC dressing. has had repeated surgery for the right hip abscess and VAC dressing placement. He has involved infectious disease and ICU. He has had multiple procedures. Recently in 11/30/2017 he had incision and drainage with skin grafting from the right thigh. Wound VAC is still in place on the right leg. During the course of his hospitalization, he complained of constipation. The constipation pre-dated his hospital admission. He was noted to have a normocytic anemia and heme-positive stools. He has required red cell transfusions. Ultimately a colonoscopy was performed by Dr. Maza on 2017. The findings showed a friable fungating irregular rectal mass suspicious for malignancy. Biopsy of the rectum showed extensively necrotic invasive moderately differentiated adenocarcinoma. Staging evaluation including a repeat CT scan of the abdomen showed some ascitic fluid in the pelvis. There is a bilateral pleural effusion but no obvious site of distant metastatic disease. Plan 1. Consult case management for Green card. 2. Follow up at [facility] next week. 3. Request Xeloda. Jihan Webber MD Dec 15, 2017 15:58
--- NOTE | 2017-12-15 16:31 | RADRPT ---
EXAM DATE/TIME: 12/15/2017 09:06 [place] COMPARISON: No previous studies available for comparison. INDICATIONS : Fluid collection, right thigh. MEDICAL HISTORY : Confusion. Phychiatric problems. Bipolar. SURGICAL HISTORY : Right thigh skin graft. ENCOUNTER: Initial ACUITY: 3 weeks PAIN SCORE: 8/10 LOCATION: Right Thigh. FLUID: Total volume of 1 cc of clear, red fluid was removed. Fluid was sent to lab for ordered studies. Post procedure scanning reveals no hematoma or other complication. TECHNIQUE: 1. Ultrasound guidance for needle aspiration. 2. Aspiration. The risks, benefits and alternatives to the procedure were explained and verbal and written consent w as obtained. The site was prepped in sterile fashion. Full sterile technique was used, including ca p, mask, sterile gloves and gown and a large sterile sheet. Hand hygiene and 2% chlorhexidine and/or betadine/alcohol prep was utilized per protocol for cutaneous antisepsis. The skin and subcutaneous tissues were infiltrated with local anesthetic solution. Sterile gel and sterile probe cover were u tilized for ultrasound guidance. With the patient on the ultrasound table, ultrasound imaging was used to select the most appropriate approach for aspiration. An 18 gauge needle was placed within the right thigh adjacent to the skin gr aft and 1 cc of serosanguineous fluid aspirated. No pus aspirated. CONCLUSION: No significant fluid collection identified under ultrasound guidance. Very minimal serosanguineous fl uid aspirated. Amaury Lee MD on December 15, 2017 at 16:29 Board Certified Radiologist. This report was verified electronically.
[2017-12-15] MEDS: ENOXAPARIN SODIUM 40 MG/0.4 ML SYRINGE SQ SCH (17:15)
[2017-12-15] MEDS: ACETAMINOPHEN 325 MG TAB PO PRN (20:22)
[2017-12-15] MEDS: NORTRIPTYLINE HCL 25 MG CAP PO SCH (22:54)
[2017-12-16] VITALS: BP 103/68; PULSE 93; RESP 16; TEMP 97.8; O2SAT 98
[2017-12-16] MEDS: CHLORHEXIDINE GLUCONATE 2 % 1 PACK (2 CLOTHS) TOP SCH (02:54)
[2017-12-16] MEDS: cefTRIAXone INJ 2,000 MG in SODIUM CHLORIDE 0.9% INJ 100 ML IV SCH ×2 (02:54→14:43)
[2017-12-16] MEDS: oxyCODONE/ACETAMINOPHEN 10 MG/325 MG TAB PO PRN ×3 (02:56→17:27)
[2017-12-16] MEDS: NYSTATIN 100,000 UNIT/GM CREAM 15 GM TOPICAL SCH ×4 (04:39→23:42)
[2017-12-16] MEDS: ALBUMIN 25% INJ 100 ML IV SCH ×2 (04:39→17:26)
[2017-12-16] MEDS: metroNIDAZOLE 500 MG TAB PO SCH ×3 (04:39→21:07)
[2017-12-16] MEDS: VALPROIC ACID 250 MG CAP PO SCH ×3 (04:39→21:07)
[2017-12-16 08:00] VITALS: BP 112/73; PULSE 100; RESP 22; TEMP 96.7; O2SAT 98
[2017-12-16] MEDS: CHLORHEXIDINE 0.12% (ORAL KIT) 15 ML CUP MT SCH ×2 (08:00→19:28)
[2017-12-16] MEDS: ARIPiprazole 5 MG TAB PO SCH (08:07)
[2017-12-16] MEDS: FLUCONAZOLE 200 MG TAB PO SCH (08:07)
[2017-12-16] MEDS: FAMOTIDINE 20 MG TAB PO SCH ×2 (08:07→21:07)
[2017-12-16] MEDS: GABAPENTIN 100 MG CAP PO SCH ×3 (08:07→17:26)
[2017-12-16] MEDS: hydrOXYzine HCL 50 MG TAB PO SCH ×2 (08:07→21:07)
[2017-12-16] MEDS: risperiDONE ODT 3 MG TAB PO SCH ×2 (08:08→21:00)
[2017-12-16] MEDS: SODIUM CHLORIDE 0.9% FLUSH 10 ML FLUSH IV FLUSH SCH ×2 (08:08→21:08)
[2017-12-16] MEDS: ALPRAZolam 0.5 MG TAB PO PRN ×2 (08:39→17:48)
[2017-12-16 09:36] VITALS: O2SAT 98
--- NOTE | 2017-12-16 09:57 | HHI.PR ---
Subjective Remarks Follow-up type abscesses 12/13/17-patient seen and examined, no acute event overnight, afebrile, denies any significant lower extremity pain 12/14/17-patient seen and examined, patient reports some right knee pain otherwise afebrile. Case discussed with ID 12/15/17-patient seen and examined, nothing by mouth and heading for special for drainage of right knee effusion. Afebrile. 12/16/17-Patient seen and examined, he had 1 cc fluid removed from right knee yesterday. Denies any pain currently stable. Objective Vitals Vital Signs Date Time Temp Pulse Resp B/P (MAP) Pulse Ox O2 Delivery O2 Flow Rate FiO2 12/16/17 09:36 98 12/16/17 08:00 96.7 100 22 112/73 (86) 98 12/16/17 00:00 97.8 93 16 103/68 (80) 98 12/15/17 20:00 100.7 113 20 127/79 (95) 93 12/15/17 16:00 96.8 102 17 151/82 (105) 100 12/15/17 12:00 96.5 91 17 144/93 (110) 100 12/15/17 10:25 97.2 99 18 125/84 (98) 100 I/O 12/15/17 12/15/17 12/15/17 12/16/17 12/16/17 12/16/17 07:00 15:00 23:00 07:00 15:00 23:00 Intake Total 300 ml 2640 ml 1100 ml Output Total 2800 ml 2950 ml 1600 ml Balance -2500 ml -310 ml -500 ml Intake Oral 0 ml 2640 ml IV Total 300 ml 1100 ml Output Urine Total 2500 ml 2750 ml 1550 ml Stool Total 300 ml 200 ml 50 ml Result Diagram: 12/13/17 0533 12/12/17 0705 Imaging Last Impressions Needle Aspiration Ultrasound 12/15/17 0000 Signed Impressions: Service Date/Time: December 09:06 - CONCLUSION: No significant fluid collection identified under ultrasound guidance. Very minimal serosanguineous fluid aspirated. Amaury Lee MD Lower Extremity CT 12/12/17 0000 Signed Impressions: Service Date/Time: Tuesday, December 12, 2017 20:22 - CONCLUSION: 1. Interval surgery with drainage of most of the thigh abscess. There is a residual loculated fluid collection anteriorly medial and lateral to the femur with measurements given above. Bertrand Smalls MD Abdomen/Pelvis CT 12/12/17 0000 Signed Impressions: Service Date/Time: Tuesday, December 12, 2017 20:22 - CONCLUSION: 1. Large rectal mass measuring up to 12 x 8.4 cm in with abnormal fluid in the gluteal musculature which appears slightly less loculated than on November 15. There is also abnormal fluid and edematous swelling in the proximal thigh musculature anteriorly. There is placement of a left lower quadrant colostomy. 2. Bilateral pleural effusions and basilar airspace consolidation of the lungs has improved. Anasarca has improved. 3. Mild diffuse ileus. Bertrand Smalls MD Chest X-Ray 11/30/17 0600 Signed Impressions: Service Date/Time: Thursday, November 30, 2017 05:14 - CONCLUSION: No significant change has occurred. Oscar Mcmanus MD Lower Extremity Ultrasound 11/08/172011 Signed Impressions: Service Date/Time: Wednesday, November 08, 2017 20:41 - CONCLUSION: 1. Negative for deep venous thrombosis. There are mildly enlarged right inguinal lymph nodes. Bertrand Smalls MD Thoracic Spine MRI 11/08/17 0000 Signed Impressions: Service Date/Time: Wednesday, November 08, 2017 22:01 - CONCLUSION: 1. Small bilateral pleural effusions. 2. No signal abnormalities in the thoracic vertebral bodies and no evidence of focal disc disease. Jace Bird MD Lumbar Spine MRI 11/08/17 0000 Signed Impressions: Service Date/Time: Wednesday, November 08, 2017 22:01 - CONCLUSION: 1. No evidence of lumbar disc disease. 2. Soft tissue abnormality about the right gluteal region suggesting abscess with T2 prolongation and contrast enhancement ; this is incompletely included in the [id number] of the exam. 3. There is also abnormal signal within the marrow of the sacral and coccygeal marrow including contrast enhancement suggesting that the right thigh and gluteal abnormality may extend intraosseous, possibly osteomyelitis. Jace Bird MD Objective Remarks GENERAL: NAD SKIN: Warm and dry. HEAD: Normocephalic. EYES: No scleral icterus. No injection or drainage. NECK: Supple, trachea midline. No JVD or lymphadenopathy. CARDIOVASCULAR: Regular rate and rhythm without murmurs, gallops, or rubs. RESPIRATORY: Breath sounds equal bilaterally. No accessory muscle use. GASTROINTESTINAL: Abdomen soft, non-tender, nondistended. MUSCULOSKELETAL: No cyanosis, or edema. Dressing over bilateral lower extremity.Right knee effusion BACK: Nontender without obvious deformity. No CVA tenderness. Procedures 11/09/17 incision and drainage, irrigation and debridement of right hip abscess with placement of VAC dressing 11/11/17 removal of VAC device, irrigation and debridement of right gluteal hip abscess with placement of drain and replacement of VAC 11/16/17 irrigation and debridement of pelvic infection and abscess, irrigation and debridement of right thigh abscess, right knee arthrotomy with irrigation and debridement 11/16/17 incision and drainage, irrigation and debridement of complex lower extremity abscess with removal of subcutaneous tissue, fascia, and muscle, with application of VAC device 11/18/17 irrigation and debridement of right pelvis and hip, irrigation and debridement of right thigh, irrigation and debridement of right knee 11/21/17 irrigation and debridement of right hip, right thigh, and right knee. Application of wound VAC dressing 11/24/17 irrigation and debridement of right hip, right thigh, right knee. Secondary wound closure, application of wound VAC 11/30/17 I&D with skin grafting right thigh 12/01/17 Colonoscopy 12/05/17 colostomy A/P Problem List: (1) Abscess of lower leg ICD Code: L02.419 - Cutaneous abscess of limb, unspecified (2) Abscess of right hip ICD Code: L02.415 - Cutaneous abscess of right lower limb (3) Cellulitis and abscess of lower extremity ICD Code: L03.119 - Cellulitis of unspecified part of limb; L02.419 - Cutaneous abscess of limb, unspecified (4) Schizoaffective disorder, bipolar type ICD Code: F25.0 - Schizoaffective disorder, bipolar type (5) Knee effusion, right ICD Code: M25.461 - Effusion, right knee Assessment and Plan 41-year-old man with Severe sepsis bacteremia with strep viridans thigh abscess Status post multiple surgeries S/p I&D with skin grafting right thigh 11/30. Currently on IV Rocephin, by mouth Flagyl and Diflucan per ID Continue wound care per ortho. Right knee effusion per Lower extremity CT 12/12/17 Neither aspiration ultrasounds 12/15/17 did not show any significant fluid collection Orthopedic surgery following Acute respiratory failure Resolved. oxygen and nebs as needed. Invasive adenocarcinoma of the rectum Anemia - Heme positive stools. GI consult appreciated. Mass was noted on colonoscopy. Pathology c/w mod diff invasive adenocarcinoma. Colorectal surgery, medical oncology and radiation oncology consults appreciated. - s/p diverting colostomy 12/05 per CRS. - oncology recommending to hold off on radiation until after chemo. -colorectal surgery following. -s/p 1 unit PRBC transfused 12/13/17- continue to monitor H/H. Schizoaffective disorder - Continue Depakote, risperidone, Abilify. - Alprazolam as needed. -Appreciate input from psychiatry Hypokalemia-Improved. DVT prophylaxis: jaden Nevarezx. Amaury Lainez MD Dec 16, 2017 09:57
--- NOTE | 2017-12-16 11:40 | PD.WCN.NOT ---
Wound Consult Description: New Ostomy Teaching per Dr Torres and Dr Manzano Ostomy Type: Colostomy (Loop) Surgeon: Too Torres MD Date of Surgery: Dec 05, 2017 Complete: Starter kit, Education materials (Left at bedside), Rx (Script left on chart for possible dc soon.), Other (3 supplies in size 2 3/4" ordered for patient to go home with at discharge.) Bhavani Carrillo [facility] Dec 16, 2017 11:40
[2017-12-16 12:00] VITALS: BP 126/81; PULSE 106; RESP 20; TEMP 98.3; O2SAT 99
[2017-12-16] MEDS: LACTATED RINGER'S 1000 ML INJ 1,000 ML IV SCH (12:12)
[2017-12-16] MEDS ORDERED: OXYC1TAB63 PO (12:25)
[2017-12-16] MEDS ORDERED: ALPR.5 PO (12:25)
[2017-12-16] MEDS ORDERED: GABA100C4 PO (12:25)
--- NOTE | 2017-12-16 14:31 | PD.WCN.NOT ---
Wound Consult Description: New Ostomy Teaching per Dr Torres and Dr Manzano Communicated with: Patient Recommendation: Continue emptying pouch when 1/3-1/2 full of effluent Change appliance as needed When carlos is removed, use 2 piece appliance size 2 3/4" moldable with pouch Cleanse skin around stoma with water only and pat dry Measuring stoma with each appliance change Molding appliance to fit stoma size Additional Information: Patient seen on [address] [place] [address] for ostomy assessment and teaching. Ostomy Type: Colostomy (Loop) Surgeon: Too Torres MD Date of Surgery: Dec 05, 2017 Complete: Starter kit, Education materials (Left at bedside), Rx (Script left on chart for possible dc soon.), Other (3 supplies in size 2 3/4" ordered for patient to go home with at discharge.) Educated patient on: Continue emptying pouch when 1/3-1/2 full of effluent Change appliance as needed When carlos is removed, use 2 piece appliance size 2 3/4" moldable with pouch Cleanse skin around stoma with water only and pat dry Measuring stoma with each appliance change Molding appliance to fit stoma size Additional information Stoma is red, moist, round, moderately protruding, mildly edematous, functioning with soft brown effluent measuring 1 3/4". Carlos remains in place, Dr Kessler office was contacted yesterday by technical document writer for clarification of when carlos was to be removed. Baker Helper did not receive a call back. Bhavani Carrillo [facility] Dec 16, 2017 14:31
[2017-12-16 16:00] VITALS: BP 117/72; PULSE 103; RESP 20; TEMP 97.7; O2SAT 97
[2017-12-16] MEDS: ENOXAPARIN SODIUM 40 MG/0.4 ML SYRINGE SQ SCH (17:26)
[2017-12-16 20:00] VITALS: BP 118/71; PULSE 111; RESP 20; TEMP 98.8; O2SAT 98
[2017-12-16] MEDS: NORTRIPTYLINE HCL 25 MG CAP PO SCH (21:07)
[2017-12-17] VITALS: BP 139/83; PULSE 109; RESP 22; TEMP 97.4; O2SAT 97
[2017-12-17] MEDS: oxyCODONE/ACETAMINOPHEN 10 MG/325 MG TAB PO PRN ×4 (00:46→19:51)
[2017-12-17] MEDS: ALPRAZolam 0.5 MG TAB PO PRN ×2 (02:32→15:20)
[2017-12-17] MEDS: cefTRIAXone INJ 2,000 MG in SODIUM CHLORIDE 0.9% INJ 100 ML IV SCH ×2 (02:33→15:19)
[2017-12-17] MEDS: CHLORHEXIDINE GLUCONATE 2 % 1 PACK (2 CLOTHS) TOP SCH (03:05)
[2017-12-17] MEDS: VALPROIC ACID 250 MG CAP PO SCH ×3 (05:07→21:51)
[2017-12-17] MEDS: metroNIDAZOLE 500 MG TAB PO SCH ×3 (05:07→21:50)
[2017-12-17] MEDS: ALBUMIN 25% INJ 100 ML IV SCH ×3 (05:09→16:50)
[2017-12-17] MEDS: NYSTATIN 100,000 UNIT/GM CREAM 15 GM TOPICAL SCH ×4 (05:24→23:39)
[2017-12-17] MEDS: LACTATED RINGER'S 1000 ML INJ 1,000 ML IV SCH ×2 (06:04→21:50)
[2017-12-17 08:00] VITALS: BP 116/70; PULSE 108; RESP 17; TEMP 100.4; O2SAT 98
[2017-12-17] MEDS: CHLORHEXIDINE 0.12% (ORAL KIT) 15 ML CUP MT SCH ×2 (08:00→19:45)
[2017-12-17] MEDS: SODIUM CHLORIDE 0.9% FLUSH 10 ML FLUSH IV FLUSH SCH ×2 (09:59→19:44)
[2017-12-17] MEDS: hydrOXYzine HCL 50 MG TAB PO SCH ×2 (09:59→19:44)
[2017-12-17] MEDS: ARIPiprazole 5 MG TAB PO SCH (09:59)
[2017-12-17] MEDS: FAMOTIDINE 20 MG TAB PO SCH ×2 (10:00→19:44)
[2017-12-17] MEDS: FLUCONAZOLE 200 MG TAB PO SCH (10:00)
[2017-12-17] MEDS: risperiDONE ODT 3 MG TAB PO SCH ×2 (10:00→19:44)
[2017-12-17] MEDS: GABAPENTIN 100 MG CAP PO SCH ×3 (10:00→16:49)
[2017-12-17 10:08] VITALS: O2SAT 98
--- NOTE | 2017-12-17 11:31 | HHI.PR ---
Subjective Remarks Follow-up type abscesses 12/13/17-patient seen and examined, no acute event overnight, afebrile, denies any significant lower extremity pain 12/14/17-patient seen and examined, patient reports some right knee pain otherwise afebrile. Case discussed with ID 12/15/17-patient seen and examined, nothing by mouth and heading for special for drainage of right knee effusion. Afebrile. 12/16/17-Patient seen and examined, he had 1 cc fluid removed from right knee yesterday. Denies any pain currently stable. 12/17/17-patient seen and examined, afebrile, and stable, resting comfortably and watching TV. Objective Vitals Vital Signs Date Time Temp Pulse Resp B/P (MAP) Pulse Ox O2 Delivery O2 Flow Rate FiO2 12/17/17 10:08 98 12/17/17 08:00 100.4 108 17 116/70 (85) 98 12/17/17 00:00 97.4 109 22 139/83 (101) 97 12/16/17 20:00 98.8 111 20 118/71 (87) 98 12/16/17 16:00 97.7 103 20 117/72 (87) 97 12/16/17 12:00 98.3 106 20 126/81 (96) 99 I/O 12/16/17 12/16/17 12/16/17 12/17/17 12/17/17 12/17/17 07:00 15:00 23:00 07:00 15:00 23:00 Intake Total 1100 ml 2800 ml Output Total 1600 ml 1550 ml 2800 ml Balance -500 ml 1250 ml -2800 ml Intake Oral 2600 ml IV Total 1100 ml 200 ml Output Urine Total 1550 ml 1550 ml 2750 ml Stool Total 50 ml 50 ml Result Diagram: 12/13/17 0533 Objective Remarks GENERAL: NAD SKIN: Warm and dry. HEAD: Normocephalic. EYES: No scleral icterus. No injection or drainage. NECK: Supple, trachea midline. No JVD or lymphadenopathy. CARDIOVASCULAR: Regular rate and rhythm without murmurs, gallops, or rubs. RESPIRATORY: Breath sounds equal bilaterally. No accessory muscle use. GASTROINTESTINAL: Abdomen soft, non-tender, nondistended. MUSCULOSKELETAL: No cyanosis, or edema. Dressing over bilateral lower extremity.Right knee effusion BACK: Nontender without obvious deformity. No CVA tenderness. Procedures 11/09/17 incision and drainage, irrigation and debridement of right hip abscess with placement of VAC dressing 11/11/17 removal of VAC device, irrigation and debridement of right gluteal hip abscess with placement of drain and replacement of VAC 11/16/17 irrigation and debridement of pelvic infection and abscess, irrigation and debridement of right thigh abscess, right knee arthrotomy with irrigation and debridement 11/16/17 incision and drainage, irrigation and debridement of complex lower extremity abscess with removal of subcutaneous tissue, fascia, and muscle, with application of VAC device 11/18/17 irrigation and debridement of right pelvis and hip, irrigation and debridement of right thigh, irrigation and debridement of right knee 11/21/17 irrigation and debridement of right hip, right thigh, and right knee. Application of wound VAC dressing 11/24/17 irrigation and debridement of right hip, right thigh, right knee. Secondary wound closure, application of wound VAC 11/30/17 I&D with skin grafting right thigh 12/01/17 Colonoscopy 12/05/17 colostomy A/P Problem List: (1) Abscess of lower leg ICD Code: L02.419 - Cutaneous abscess of limb, unspecified (2) Abscess of right hip ICD Code: L02.415 - Cutaneous abscess of right lower limb (3) Cellulitis and abscess of lower extremity ICD Code: L03.119 - Cellulitis of unspecified part of limb; L02.419 - Cutaneous abscess of limb, unspecified (4) Schizoaffective disorder, bipolar type ICD Code: F25.0 - Schizoaffective disorder, bipolar type (5) Knee effusion, right ICD Code: M25.461 - Effusion, right knee Assessment and Plan 41-year-old man with Severe sepsis bacteremia with strep viridans thigh abscess Status post multiple surgeries S/p I&D with skin grafting right thigh 11/30. Currently on IV Rocephin, by mouth Flagyl and Diflucan per ID Continue wound care per ortho. Right knee effusion per Lower extremity CT 12/12/17 Neither aspiration ultrasounds 12/15/17 did not show any significant fluid collection Orthopedic surgery following Acute respiratory failure Resolved. oxygen and nebs as needed. Invasive adenocarcinoma of the rectum Anemia - Heme positive stools. GI consult appreciated. Mass was noted on colonoscopy. Pathology c/w mod diff invasive adenocarcinoma. Colorectal surgery, medical oncology and radiation oncology consults appreciated. - s/p diverting colostomy 12/05 per CRS. - oncology recommending to hold off on radiation until after chemo. -colorectal surgery following. -s/p 1 unit PRBC transfused 12/13/17- continue to monitor H/H. Schizoaffective disorder - Continue Depakote, risperidone, Abilify. - Alprazolam as needed. -Appreciate input from psychiatry Hypokalemia-Improved. DVT prophylaxis: subq Lovenox. Amaury Lainez MD Dec 17, 2017 11:31
[2017-12-17 12:00] VITALS: BP 117/81; PULSE 99; RESP 17; TEMP 96.1; O2SAT 100
[2017-12-17] MEDS: ENOXAPARIN SODIUM 40 MG/0.4 ML SYRINGE SQ SCH (15:18)
[2017-12-17 16:00] VITALS: BP 120/75; PULSE 95; RESP 17; TEMP 98.8; O2SAT 100
[2017-12-17] MEDS: NORTRIPTYLINE HCL 25 MG CAP PO SCH (19:44)
[2017-12-17 20:00] VITALS: BP 117/80; PULSE 105; RESP 18; TEMP 97.1; O2SAT 99
[2017-12-18] VITALS: BP 117/76; PULSE 101; RESP 18; TEMP 97.5; O2SAT 98
[2017-12-18] MEDS: ALPRAZolam 0.5 MG TAB PO PRN ×3 (00:32→19:53)
[2017-12-18] MEDS: oxyCODONE/ACETAMINOPHEN 10 MG/325 MG TAB PO PRN ×4 (00:33→19:53)
[2017-12-18] MEDS: cefTRIAXone INJ 2,000 MG in SODIUM CHLORIDE 0.9% INJ 100 ML IV SCH ×2 (03:13→15:56)
[2017-12-18] MEDS: CHLORHEXIDINE GLUCONATE 2 % 1 PACK (2 CLOTHS) TOP SCH (04:00)
[2017-12-18] MEDS: ALBUMIN 25% INJ 100 ML IV SCH ×2 (04:13→18:06)
[2017-12-18] MEDS: metroNIDAZOLE 500 MG TAB PO SCH ×3 (05:19→21:07)
[2017-12-18] MEDS: VALPROIC ACID 250 MG CAP PO SCH ×3 (05:19→21:07)
[2017-12-18] MEDS: NYSTATIN 100,000 UNIT/GM CREAM 15 GM TOPICAL SCH ×4 (05:20→23:21)
[2017-12-18 08:00] VITALS: BP 124/79; PULSE 104; RESP 18; TEMP 97.6; O2SAT 99
[2017-12-18] MEDS: CHLORHEXIDINE 0.12% (ORAL KIT) 15 ML CUP MT SCH ×2 (08:00→20:00)
[2017-12-18] MEDS: hydrOXYzine HCL 50 MG TAB PO SCH ×2 (08:24→19:53)
[2017-12-18] MEDS: GABAPENTIN 100 MG CAP PO SCH ×3 (08:24→18:06)
[2017-12-18] MEDS: FLUCONAZOLE 200 MG TAB PO SCH (08:24)
[2017-12-18] MEDS: FAMOTIDINE 20 MG TAB PO SCH ×2 (08:24→19:53)
[2017-12-18] MEDS: ARIPiprazole 5 MG TAB PO SCH (08:24)
[2017-12-18] MEDS: risperiDONE ODT 3 MG TAB PO SCH ×2 (08:25→19:53)
[2017-12-18] MEDS: LACTATED RINGER'S 1000 ML INJ 1,000 ML IV SCH (08:30)
[2017-12-18] MEDS: SODIUM CHLORIDE 0.9% FLUSH 10 ML FLUSH IV FLUSH SCH ×2 (10:06→19:53)
--- NOTE | 2017-12-18 10:31 | HHI.PR ---
Subjective Remarks Follow-up thigh abscesses/Sepsis 12/13/17-patient seen and examined, no acute event overnight, afebrile, denies any significant lower extremity pain 12/14/17-patient seen and examined, patient reports some right knee pain otherwise afebrile. Case discussed with ID 12/15/17-patient seen and examined, nothing by mouth and heading for special for drainage of right knee effusion. Afebrile. 12/16/17-Patient seen and examined, he had 1 cc fluid removed from right knee yesterday. Denies any pain currently stable. 12/17/17-patient seen and examined, afebrile, and stable, resting comfortably and watching TV. 12/18/17-patient seen and examined, stable and no complaint. doing well Objective Vitals Vital Signs Date Time Temp Pulse Resp B/P (MAP) Pulse Ox O2 Delivery O2 Flow Rate FiO2 12/18/17 08:00 97.6 104 18 124/79 (94) 99 12/18/17 01:33 18 12/18/17 00:00 97.5 101 18 117/76 (90) 98 12/17/17 20:00 97.1 105 18 117/80 (92) 99 12/17/17 16:00 98.8 95 17 120/75 (90) 100 12/17/17 12:00 96.1 99 17 117/81 (93) 100 I/O 12/17/17 12/17/17 12/17/17 12/18/17 12/18/17 12/18/17 07:00 15:00 23:00 07:00 15:00 23:00 Intake Total 200 ml 2580 ml 440 ml Output Total 2800 ml 2125 ml 1800 ml Balance -2600 ml 455 ml -1360 ml Intake Oral 2380 ml 240 ml IV Total 200 ml 200 ml 200 ml Output Urine Total 2750 ml 1525 ml 1800 ml Stool Total 50 ml 600 ml Objective Remarks GENERAL: NAD SKIN: Warm and dry. HEAD: Normocephalic. EYES: No scleral icterus. No injection or drainage. NECK: Supple, trachea midline. No JVD or lymphadenopathy. CARDIOVASCULAR: Regular rate and rhythm without murmurs, gallops, or rubs. RESPIRATORY: Breath sounds equal bilaterally. No accessory muscle use. GASTROINTESTINAL: Abdomen soft, non-tender, nondistended. MUSCULOSKELETAL: No cyanosis, or edema. Dressing over bilateral lower extremity.Right knee effusion BACK: Nontender without obvious deformity. No CVA tenderness. Procedures 11/09/17 incision and drainage, irrigation and debridement of right hip abscess with placement of VAC dressing 11/11/17 removal of VAC device, irrigation and debridement of right gluteal hip abscess with placement of drain and replacement of VAC 11/16/17 irrigation and debridement of pelvic infection and abscess, irrigation and debridement of right thigh abscess, right knee arthrotomy with irrigation and debridement 11/16/17 incision and drainage, irrigation and debridement of complex lower extremity abscess with removal of subcutaneous tissue, fascia, and muscle, with application of VAC device 11/18/17 irrigation and debridement of right pelvis and hip, irrigation and debridement of right thigh, irrigation and debridement of right knee 11/21/17 irrigation and debridement of right hip, right thigh, and right knee. Application of wound VAC dressing 11/24/17 irrigation and debridement of right hip, right thigh, right knee. Secondary wound closure, application of wound VAC 11/30/17 I&D with skin grafting right thigh 12/01/17 Colonoscopy 12/05/17 colostomy A/P Problem List: (1) Abscess of lower leg ICD Code: L02.419 - Cutaneous abscess of limb, unspecified (2) Abscess of right hip ICD Code: L02.415 - Cutaneous abscess of right lower limb (3) Cellulitis and abscess of lower extremity ICD Code: L03.119 - Cellulitis of unspecified part of limb; L02.419 - Cutaneous abscess of limb, unspecified (4) Schizoaffective disorder, bipolar type ICD Code: F25.0 - Schizoaffective disorder, bipolar type (5) Knee effusion, right ICD Code: M25.461 - Effusion, right knee Assessment and Plan 41-year-old man with Severe sepsis bacteremia with strep viridans thigh abscess Status post multiple surgeries S/p I&D with skin grafting right thigh 11/30. Currently on IV Rocephin, by mouth Flagyl and Diflucan per ID Continue wound care per ortho. Right knee effusion per Lower extremity CT 12/12/17 Neither aspiration ultrasounds 12/15/17 did not show any significant fluid collection Orthopedic surgery ff Acute respiratory failure Resolved. oxygen and nebs as needed. Invasive adenocarcinoma of the rectum Anemia - Heme positive stools. GI consult appreciated. Mass was noted on colonoscopy. Pathology c/w mod diff invasive adenocarcinoma. Colorectal surgery, medical oncology and radiation oncology consults appreciated. - s/p diverting colostomy 12/05 per CRS. - oncology recommending to hold off on radiation until after chemo. -colorectal surgery following. -s/p 1 unit PRBC transfused 12/13/17- continue to monitor H/H. Schizoaffective disorder - Continue Depakote, risperidone, Abilify. - Alprazolam as needed. -Appreciate input from psychiatry Hypokalemia-Improved. DVT prophylaxis: subq Lovenox. Amaury Lainez MD Dec 18, 2017 10:31
[2017-12-18 12:00] VITALS: BP 111/72; PULSE 92; RESP 17; TEMP 98; O2SAT 99
[2017-12-18] MEDS: ENOXAPARIN SODIUM 40 MG/0.4 ML SYRINGE SQ SCH (15:55)
[2017-12-18 16:00] VITALS: BP 105/66; PULSE 100; RESP 17; TEMP 97.6; O2SAT 96
[2017-12-18] MEDS: NORTRIPTYLINE HCL 25 MG CAP PO SCH (19:53)
[2017-12-18 20:00] VITALS: BP 110/69; PULSE 84; RESP 17; TEMP 98.6; O2SAT 98
[2017-12-19] VITALS: BP 110/71; PULSE 101; RESP 17; TEMP 98.9; O2SAT 98
[2017-12-19] MEDS: cefTRIAXone INJ 2,000 MG in SODIUM CHLORIDE 0.9% INJ 100 ML IV SCH (02:37)
[2017-12-19] MEDS: oxyCODONE/ACETAMINOPHEN 10 MG/325 MG TAB PO PRN ×3 (02:43→17:18)
[2017-12-19] MEDS: CHLORHEXIDINE GLUCONATE 2 % 1 PACK (2 CLOTHS) TOP SCH (04:00)
[2017-12-19] MEDS: NYSTATIN 100,000 UNIT/GM CREAM 15 GM TOPICAL SCH ×2 (04:14→12:00)
[2017-12-19] MEDS: metroNIDAZOLE 500 MG TAB PO SCH ×2 (04:35→13:07)
[2017-12-19] MEDS: ALBUMIN 25% INJ 100 ML IV SCH (04:35)
[2017-12-19] MEDS: VALPROIC ACID 250 MG CAP PO SCH ×2 (04:35→13:07)
--- NOTE | 2017-12-19 07:42 | HHI.FF ---
cc: Zamzam Allan MD Infusion Therapy Location of Infusion Therapy: [facility] IV Infusion Order Patient Information Appointment Date: Dec 19, 2017 Patient Weight 63.4 kg Diagnosis: Diagnosis Sacral osteomyelitis. Right femur osteomyelitis Right knee septic arthritis Right thigh myositis and fascitis. Rectal cancer invasive with perforation. Coded Allergies: diphenhydramine (Verified Adverse Reaction, Unknown, 11/08/17) Administer Medication Ceftriaxone 2 grams IV q 12 hours Start Treatment: Dec 19, 2017 Stop Treatment: Jan 13, 2018 Additional Information Additional Medications Flagyl 500 mg po daily for 2 weeks Diflucan 400 mg po daily for 2 weeks. Venous access: PICC Line (or midline) Additional Instructions [x] Peripheral flush and dressing changes per protocol [x] Implanted port and central electrical lineman: * Implanted port: 10 ml Normal Saline followed by 5 ml Heparin 100 units/ml Heparin flush after each use and monthly to maintain. [] May leave port accessed during therapy. [] May leave peripheral site accessed for duration of therapy. [x] If patient has SOB or respiratory distress, check oxygen saturation. If less than 90% or clinical signs of respiratory distress, administer oxygen at 2 L/min. via nasal cannula and notify physician. [x] Anaphylaxis/Reaction orders: * Stop infusion. * Keep IV line open with saline flush. * Notify physician. * Monitor vital signs every 15 minutes until symptoms resolve. * Check Oxygen saturation; Oxygen at 2 L/min. via nasal cannula if less than 90% or clinical signs of respiratory distress. * Administer diphenhydramine (Benadryl) 25 mg IV STAT, (unless patient has received as pre-med). May repeat once, if necessary. * Solu-Cortef 250 mg IVP over 30-60 seconds, use 100 mg vials for each dissolution. * Epinephrine (1mg/1 ml) 0.3 mg subcutaneously or IVP now with any signs of respiratory distress. * Check with physician for new additional pre-med orders if patient is re- challenged or re-treated. [x] May remove PICC line when treatment complete, after confirming with Physician. [x] If the patient is admitted to the hospital, the ED, or transferred via [facility] , complete transfer form including medication reconciliation order sheet. Laboratory Tests Weekly Labs: CBC w/diff, Creatinine, CRP, LFT's (Hepatic function test) Additional Information Please draw weekly labs, fax to BOTH the MD numbers below. Call with abnormals, change in clinical condition or problems to: 1. Dr.Reba Allan or Alternate if not available: or Covering ID Physician Follow up appt: Patient to schedule follow up appt with Dr.Reba Allan within 2 weeks post discharge. Follow up with PCP Follow up with other MDs as planned. Counseling: Counseled about medication side effects Counseled about PICC line care and hand hygiene. Counseled about Cdiff and importance of early testing. María Upton MD Dec 19, 2017 07:42
[2017-12-19] MEDS ORDERED: EPIN1INJ21 SQ (07:44)
[2017-12-19] MEDS ORDERED: SOLU250I IV PUSH (07:44)
[2017-12-19] MEDS ORDERED: EPIN1INJ21 IV PUSH (07:44)
[2017-12-19] MEDS ORDERED: CEFT2INJ IV (07:44)
[2017-12-19] MEDS ORDERED: METR-1 PO (07:49)
[2017-12-19] MEDS ORDERED: DIFL200T PO (07:49)
[2017-12-19 08:00] VITALS: BP 120/77; PULSE 92; RESP 18; TEMP 97.4; O2SAT 100
[2017-12-19] MEDS: CHLORHEXIDINE 0.12% (ORAL KIT) 15 ML CUP MT SCH (08:00)
[2017-12-19] MEDS: GABAPENTIN 100 MG CAP PO SCH ×2 (08:36→13:07)
[2017-12-19] MEDS: risperiDONE ODT 3 MG TAB PO SCH (08:36)
[2017-12-19] MEDS: hydrOXYzine HCL 50 MG TAB PO SCH (08:36)
[2017-12-19] MEDS: FLUCONAZOLE 200 MG TAB PO SCH (08:37)
[2017-12-19] MEDS: ARIPiprazole 5 MG TAB PO SCH (08:37)
[2017-12-19] MEDS: FAMOTIDINE 20 MG TAB PO SCH (08:37)
[2017-12-19] MEDS: SODIUM CHLORIDE 0.9% FLUSH 10 ML FLUSH IV FLUSH SCH (08:43)
--- NOTE | 2017-12-19 10:52 | HHI.PR ---
Subjective Remarks Follow-up thigh abscesses/Sepsis 12/13/17-patient seen and examined, no acute event overnight, afebrile, denies any significant lower extremity pain 12/14/17-patient seen and examined, patient reports some right knee pain otherwise afebrile. Case discussed with ID 12/15/17-patient seen and examined, nothing by mouth and heading for special for drainage of right knee effusion. Afebrile. 12/16/17-Patient seen and examined, he had 1 cc fluid removed from right knee yesterday. Denies any pain currently stable. 12/17/17-patient seen and examined, afebrile, and stable, resting comfortably and watching TV. 12/18/17-patient seen and examined, stable and no complaint. doing well 12/19/17-patient seen and examined, no change and resting comfortably in bed. Objective Vitals Vital Signs Date Time Temp Pulse Resp B/P (MAP) Pulse Ox O2 Delivery O2 Flow Rate FiO2 12/19/17 08:00 97.4 92 18 120/77 (91) 100 12/19/17 03:43 18 12/19/17 00:00 98.9 101 17 110/71 (84) 98 12/18/17 20:00 98.6 84 17 110/69 (83) 98 12/18/17 16:00 97.6 100 17 105/66 (79) 96 12/18/17 12:00 98.0 92 17 111/72 (85) 99 I/O 12/18/17 12/18/17 12/18/17 12/19/17 12/19/17 12/19/17 07:00 15:00 23:00 07:00 15:00 23:00 Intake Total 440 ml 2360 ml 1200 ml Output Total 1800 ml 3825 ml 2950 ml Balance -1360 ml -1465 ml -1750 ml Intake Oral 240 ml 2160 ml 1000 ml IV Total 200 ml 200 ml 200 ml Output Urine Total 1800 ml 3375 ml 2950 ml Stool Total 450 ml Objective Remarks GENERAL: NAD SKIN: Warm and dry. HEAD: Normocephalic. EYES: No scleral icterus. No injection or drainage. NECK: Supple, trachea midline. No JVD or lymphadenopathy. CARDIOVASCULAR: Regular rate and rhythm without murmurs, gallops, or rubs. RESPIRATORY: Breath sounds equal bilaterally. No accessory muscle use. GASTROINTESTINAL: Abdomen soft, non-tender, nondistended. Colostomy bag in place MUSCULOSKELETAL: No cyanosis, or edema. Dressing over bilateral lower extremity. BACK: Nontender without obvious deformity. No CVA tenderness. Procedures 11/09/17 incision and drainage, irrigation and debridement of right hip abscess with placement of VAC dressing 11/11/17 removal of VAC device, irrigation and debridement of right gluteal hip abscess with placement of drain and replacement of VAC 11/16/17 irrigation and debridement of pelvic infection and abscess, irrigation and debridement of right thigh abscess, right knee arthrotomy with irrigation and debridement 11/16/17 incision and drainage, irrigation and debridement of complex lower extremity abscess with removal of subcutaneous tissue, fascia, and muscle, with application of VAC device 11/18/17 irrigation and debridement of right pelvis and hip, irrigation and debridement of right thigh, irrigation and debridement of right knee 11/21/17 irrigation and debridement of right hip, right thigh, and right knee. Application of wound VAC dressing 11/24/17 irrigation and debridement of right hip, right thigh, right knee. Secondary wound closure, application of wound VAC 11/30/17 I&D with skin grafting right thigh 12/01/17 Colonoscopy 12/05/17 colostomy A/P Problem List: (1) Abscess of lower leg ICD Code: L02.419 - Cutaneous abscess of limb, unspecified (2) Abscess of right hip ICD Code: L02.415 - Cutaneous abscess of right lower limb (3) Cellulitis and abscess of lower extremity ICD Code: L03.119 - Cellulitis of unspecified part of limb; L02.419 - Cutaneous abscess of limb, unspecified (4) Schizoaffective disorder, bipolar type ICD Code: F25.0 - Schizoaffective disorder, bipolar type (5) Knee effusion, right ICD Code: M25.461 - Effusion, right knee Assessment and Plan 41-year-old man with Severe sepsis bacteremia with strep viridans thigh abscess Status post multiple surgeries S/p I&D with skin grafting right thigh 11/30. Currently on IV Rocephin, by mouth Flagyl and Diflucan per ID Continue wound care per ortho. Right knee effusion per Lower extremity CT 12/12/17 Neither aspiration ultrasounds 12/15/17 did not show any significant fluid collection Orthopedic surgery ff Acute respiratory failure Resolved. oxygen and nebs as needed. Invasive adenocarcinoma of the rectum Anemia - Heme positive stools. GI consult appreciated. Mass was noted on colonoscopy. Pathology c/w mod diff invasive adenocarcinoma. Colorectal surgery, medical oncology and radiation oncology consults appreciated. - s/p diverting colostomy 12/05 per CRS. - oncology recommending to hold off on radiation until after chemo. -colorectal surgery following. -s/p 1 unit PRBC transfused 12/13/17- monitor H/H. Schizoaffective disorder - Continue Depakote, risperidone, Abilify. - Alprazolam as needed. -Appreciate input from psychiatry Hypokalemia-Improved. DVT prophylaxis: Lovenox. Amaury Lainez MD Dec 19, 2017 10:52
[2017-12-19 11:49] LABS: AUTOMATED NEUTROPHIL # 5.2 TH/MM3 (1.8-7.7); BASOPHIL # 0.1 TH/MM3 (0-0.2); BASOPHIL % 1.2 % (0.0-2.0); EOSINOPHIL # 0.4 TH/MM3 (0-0.4); EOSINOPHIL % 6.1 % (0.0-4.0); HEMATOCRIT 30.4 % (39.0-51.0); LYMPH % 8.9 % (9.0-44.0); LYMPHOCYTE # 0.6 TH/MM3 (1.0-4.8); MEAN CELL VOLUME 87.2 FL (80.0-100.0); MEAN CORPUSCULAR HEMOGLOBIN 28.6 PG (27.0-34.0); MEAN CORPUSCULAR HGB CONC 32.8 % (32.0-36.0); MEAN PLATELET VOLUME 7.3 FL (7.0-11.0); MONO % 10.3 % (0.0-8.0); MONOCYTE # 0.7 TH/MM3 (0-0.9); NEUT % 73.5 % (16.0-70.0); PLATELET COUNT 341 TH/MM3 (150-450); RED BLOOD COUNT 3.49 MIL/MM3 (4.50-5.90); RED CELL DISTRIBUTION WIDTH 18.4 % (11.6-17.2); WHITE BLOOD COUNT 7.1 TH/MM3 (4.0-11.0)
[2017-12-19 12:00] VITALS: BP 118/78; PULSE 105; RESP 17; TEMP 97.2; O2SAT 100
[2017-12-19 12:10] LABS: ALBUMIN 4.4 GM/DL (3.4-5.0); ALT (GPT) 7 U/L (12-78); AST (GOT) 45 U/L (15-37); BICARBONATE 26.4 MEQ/L (21.0-32.0); CALCIUM 9.5 MG/DL (8.5-10.1); CHLORIDE 96 MEQ/L (98-107); CREATININE 0.65 MG/DL (0.60-1.30); GLOMERULAR FILTRATION RATE 137 ML/MIN (>89); GLUCOSE,RANDOM 128 MG/DL (74-106); SODIUM (NA) 131 MEQ/L (136-145)
[2017-12-19 12:13] LABS: ALKALINE PHOSPHATASE 52 U/L (45-117); TOTAL BILIRUBIN ADULT 0.2 MG/DL (0.2-1.0); TOTAL PROTEIN 8.1 GM/DL (6.4-8.2)
[2017-12-19 12:16] LABS: BLOOD UREA NITROGEN 12 MG/DL (7-18)
--- NOTE | 2017-12-19 13:13 | HHI.IDPN ---
Subjective Subjective Remarks is a 41 y/o CM with PMHx of Schizoaffective disorder on Haldol IM injections in bilateral buttocks. Patient reports getting these as outpatient by unknown doctor (different doctor each time per patient). Approx 1 month back after he received his last Haldol IM shot in right buttock patient noticed pain and swelling and decreased range of motion. Patient continued to receive Haldol shots in left buttock due to pain in right buttock. Patient reports his ability to move around has declined since last 1 week and he needs help with ADL phuong dressing himself due to significant pain on right lower extremity. Patient reports fevers chills and night sweats for the last 1 week prior to admission and significant worsening pain and swelling of his right lower extremity. Patient's past medical history is also significant for right dorsum of the foot marsh as a child as well as neuropathy. Per review of records it appears the patient's mother has reported that he hasn't been feeling well since July and has presented to another emergency department related to back and hip pain. 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 Patient reports that he was on a bowel regimen to help with her constipation and that has been a challenge to maintain continence. Patient has had incontinence of stool and intermittently incontinence of urine since July. With this background patient presents to the emergency department for evaluation of difficulty walking, generalized weakness, weight loss loss of appetite. Reportedly while in the triage area his blood pressure was in the 70s systolic. Patient also reported abdominal pain in the lower quadrants radiating to his bilateral lower extremity but more so on the right. Patient reported nausea decrease in appetite and loss of about 20 pound weight in the last 1 month. Patient denies any recent intravenous drug abuse. Patient does endorse to receiving intramuscular Haldol in bilateral buttocks. The last right buttock Haldol injection was approximately 1 month back. Patient reports having weakness of bilateral lower extremities more so on the right especially because of sharp shooting pains down his right leg. In the emergency department patient received a total of 4 L of IV fluids as a part of severe sepsis workup and management. Cultures drawn at admission are currently pending. A CT scan of the abdomen showed appearance of soft tissue mass of the proximal thigh and gluteal region with fluid and gas tracking down the rectus muscle into the anterior thigh muscle. This is concerning for infectious or necrotic process. Infectious disease consulted for evaluation and management of severe sepsis, right buttock abscess possible osteomyelitis. Overnight events reviewed with RN No fevers No rash No diarrhea Antibiotics Current Medications Medications (Trade) Dose Ordered Sig/Mega Route Start Time Stop Time Status Last Admin (Atarax) 50 mg BID PO 11/09/17 09:00 12/19/17 08:36 (risperDAL) 3 mg DAILY PO 11/09/17 09:00 Future Hold 11/13/17 08:02 (NS Flush) 2 ml UNSCH PRN IV FLUSH 11/08/17 23:15 12/14/17 04:58 (NS Flush) 2 ml BID IV FLUSH 11/09/17 09:00 12/19/17 08:43 (Tylenol) 650 mg Q6H PRN PO 11/08/17 23:15 12/15/17 20:22 (Zofran Inj) 4 mg Q6H PRN IV PUSH 11/08/17 23:15 (Restoril) 15 mg HS PRN PO 11/08/17 23:15 11/27/17 00:52 (Duoneb Neb) 1 ampule Q2HR NEB PRN INH 11/08/17 23:15 11/20/17 14:49 Miscellaneous Information 1 Q361D XX 11/08/17 23:15 11/08/17 01:00 (Chlorhexidine 2% Cloth) 3 pack Taper DAILY@04 TOP 11/09/17 04:00 11/05/18 03:59 11/25/17 04:00 (Chlorhexidine 2% Cloth) 3 pack UNSCH PRN TOP 11/08/17 23:15 (Peridex 0.12% Liq) 15 ml BID@08,20 MT 11/09/17 20:00 12/11/17 08:00 (risperDAL M-TAB) 3 mg Q12HR PO 11/13/17 21:00 12/19/17 08:36 (Mycostatin Cream) 1 applic Q6HR TOPICAL 11/15/17 18:00 12/14/17 22:57 (Abilify) 5 mg DAILY PO 11/17/17 14:45 12/19/17 08:37 Vancomycin HCl 4000 mg/ Tobramycin Sulfate 2400 mg/ Micafungin Sodium 1000 mg/Sodium Chloride 3,000 ml @ 0 mls/hr CLASS C [employer] IRRIGATION 11/21/17 07:45 (Flagyl) 500 mg Q8HR PO 11/25/17 14:00 12/19/17 13:07 (Diflucan) 400 mg DAILY PO 11/26/17 09:00 12/19/17 08:37 (Percocet 5-325 Mg) 1 tab Q4H PRN PO 11/26/17 13:00 (Percocet 10-325 Mg) 1 tab Q4H PRN PO 11/26/17 13:00 12/19/17 13:08 (Depakene) 500 mg Q8HR PO 11/28/17 14:00 12/19/17 13:07 (Xanax) 0.5 mg Q8H PRN PO 11/30/17 22:00 12/18/17 19:53 Albumin Human 100 ml @ 60 mls/hr Q12H IV 12/04/17 17:00 12/19/17 04:35 Ceftriaxone Sodium 2000 mg/ Sodium Chloride 100 ml @ 200 mls/hr Q12H IV 12/05/17 15:00 12/19/17 02:37 (Lovenox Inj) 40 mg Q24H SQ 12/06/17 17:00 Future hold 12/18/17 15:55 (Pepcid) 20 mg Q12HR PO 12/06/17 21:00 12/19/17 08:37 (Neurontin) 200 mg TID PO 12/15/17 13:00 12/19/17 13:07 (Pamelor) 25 mg HS PO 12/15/17 21:00 12/18/17 19:53 Lines Line sites with no evidence of infection. Past Medical History Neuropathy involving the right leg h/o marsh right foot dorsum as a child. Schizoaffective disorder, Depressions Anxiety Past Surgical History None per patient. Allergies: Coded Allergies: diphenhydramine (Verified Adverse Reaction, Unknown, 11/08/17) Objective . Vital Signs Date Time Temp Pulse Resp B/P (MAP) Pulse Ox O2 Delivery O2 Flow Rate FiO2 12/19/17 12:00 97.2 105 17 118/78 (91) 100 12/19/17 08:00 97.4 92 18 120/77 (91) 100 12/19/17 03:43 18 12/19/17 00:00 98.9 101 17 110/71 (84) 98 12/18/17 20:00 98.6 84 17 110/69 (83) 98 12/18/17 16:00 97.6 100 17 105/66 (79) 96 . Laboratory Tests Test 12/19/17 11:10 White Blood Count 7.1 TH/MM3 Red Blood Count 3.49 MIL/MM3 Hemoglobin 10.0 GM/DL Hematocrit 30.4 % Mean Corpuscular Volume 87.2 FL Mean Corpuscular Hemoglobin 28.6 PG Mean Corpuscular Hemoglobin Concent 32.8 % Red Cell Distribution Width 18.4 % Platelet Count 341 TH/MM3 Mean Platelet Volume 7.3 FL Neutrophils (%) (Auto) 73.5 % Lymphocytes (%) (Auto) 8.9 % Monocytes (%) (Auto) 10.3 % Eosinophils (%) (Auto) 6.1 % Basophils (%) (Auto) 1.2 % Neutrophils # (Auto) 5.2 TH/MM3 Lymphocytes # (Auto) 0.6 TH/MM3 Monocytes # (Auto) 0.7 TH/MM3 Eosinophils # (Auto) 0.4 TH/MM3 Basophils # (Auto) 0.1 TH/MM3 CBC Comment DIFF FINAL Differential Comment Hematology Comments Laboratory Tests Test 12/19/17 11:10 Blood Urea Nitrogen 12 MG/DL Creatinine 0.65 MG/DL Random Glucose 128 MG/DL Total Protein 8.1 GM/DL Albumin 4.4 GM/DL Calcium Level 9.5 MG/DL Alkaline Phosphatase 52 U/L Aspartate Amino Transf (AST/SGOT) 45 U/L Alanine Aminotransferase (ALT/SGPT) 7 U/L Total Bilirubin 0.2 MG/DL Sodium Level 131 MEQ/L Potassium Level 5.0 MEQ/L Chloride Level 96 MEQ/L Carbon Dioxide Level 26.4 MEQ/L Anion Gap 9 MEQ/L Estimat Glomerular Filtration Rate 137 ML/MIN Imaging Lower Extremity CT 11/15/17 0000 Signed Impressions: Service Date/Time: Wednesday, November 15, 2017 13:22 - CONCLUSION: Extensive fluid surrounding the quadriceps musculature of the right thigh as well as air within the collection anteriorly and laterally which raises the possibility of abscess/infection. Fluid is also noted extending into the region of the gluteus muscles on the right. Diffuse subcutaneous edema the right thigh is noted. Compartment syndrome should be ruled out. Jez Chowdhury MD Abdomen/Pelvis CT 11/15/17 0000 Signed Impressions: Service Date/Time: Wednesday, November 15, 2017 13:22 - CONCLUSION: The abnormal soft tissue mass now has compartmentalized fluid collections and absence of air in the right soft tissues of thigh and gluteal region. This probably represents improving inflammatory or infectious process such as abscess. Small bilateral pleural effusions persist with a new consolidation with air bronchogram in the left lower lobe. Ascitic fluid suggested in the pelvis Silvio Laguerre MD Chest X-Ray 11/14/17 0600 Signed Impressions: Service Date/Time: Tuesday, November 14, 2017 04:22 - CONCLUSION: 1. Left basilar airspace disease similar to November 12. Bertrand Smalls MD Lower Extremity Ultrasound 11/08/172011 Signed Impressions: Service Date/Time: Wednesday, November 08, 2017 20:41 - CONCLUSION: 1. Negative for deep venous thrombosis. There are mildly enlarged right inguinal lymph nodes. Bertrand Smalls MD Thoracic Spine MRI 11/08/17 0000 Signed Impressions: Service Date/Time: Wednesday, November 08, 2017 22:01 - CONCLUSION: 1. Small bilateral pleural effusions. 2. No signal abnormalities in the thoracic vertebral bodies and no evidence of focal disc disease. Jace Bird MD Lumbar Spine MRI 11/08/17 0000 Signed Impressions: Service Date/Time: Wednesday, November 08, 2017 22:01 - CONCLUSION: 1. No evidence of lumbar disc disease. 2. Soft tissue abnormality about the right gluteal region suggesting abscess with T2 prolongation and contrast enhancement ; this is incompletely included in the [id number] of the exam. 3. There is also abnormal signal within the marrow of the sacral and coccygeal marrow including contrast enhancement suggesting that the right thigh and gluteal abnormality may extend intraosseous, possibly osteomyelitis. Jace Bird MD Last Impressions Chest X-Ray 11/09/17 0000 Signed Impressions: Service Date/Time: Thursday, November 09, 2017 16:23 - CONCLUSION: Minimal infiltrate left base new from comparison study. Rodrick Ch MD FACR Lower Extremity Ultrasound 11/08/172011 Signed Impressions: Service Date/Time: Wednesday, November 08, 2017 20:41 - CONCLUSION: 1. Negative for deep venous thrombosis. There are mildly enlarged right inguinal lymph nodes. Bertrand Smalls MD Abdomen/Pelvis CT 11/08/172011 Signed Impressions: Service Date/Time: Wednesday, November 08, 2017 22:54 - CONCLUSION: 1. Abnormal appearance of the soft tissues of the proximal thigh and gluteal region with fluid and gas tracking between the rectus muscles and the anterior thigh muscles. No focal abnormal areas of enhancement. The combination of fluid and gas suggests either an infectious or necrotic process. 2. Nonobstructing small calcified stone mid pole left kidney and multiple left renal cysts. 3. Small bilateral pleural effusions. Jace Bird MD Thoracic Spine MRI 11/08/17 0000 Signed Impressions: Service Date/Time: Wednesday, November 08, 2017 22:01 - CONCLUSION: 1. Small bilateral pleural effusions. 2. No signal abnormalities in the thoracic vertebral bodies and no evidence of focal disc disease. Jace Bird MD Lumbar Spine MRI 11/08/17 0000 Signed Impressions: Service Date/Time: Wednesday, November 08, 2017 22:01 - CONCLUSION: 1. No evidence of lumbar disc disease. 2. Soft tissue abnormality about the right gluteal region suggesting abscess with T2 prolongation and contrast enhancement ; this is incompletely included in the [id number] of the exam. 3. There is also abnormal signal within the marrow of the sacral and coccygeal marrow including contrast enhancement suggesting that the right thigh and gluteal abnormality may extend intraosseous, possibly osteomyelitis. Jace Bird MD Physical Exam GENERAL: Alert, well nourished. SKIN: Warm and dry, no generalized rash HEAD: Atraumatic. Normocephalic. No temporal or scalp tenderness. EYES: Pupils equal round and reactive. Extraocular motions intact. No scleral icterus. No injection or drainage. ENT: Dry oral mucosa, no nasal discharge NECK: Trachea midline. Supple, nontender, no meningeal signs. CARDIOVASCULAR: HS audible. RESPIRATORY: Diffuse rhonchi bilaterally GASTROINTESTINAL: Abdomen soft, Colostomy in place with liquid stool. MUSCULOSKELETAL: RLE with dressing in place. NEUROLOGICAL: Awake and alert and interactive. Grossly nonfocal Psych cooperative IV line sites with no e.o infection. Assessment & Plan Remarks Severe sepsis present on admission. Staph coag neg bacteremia: 1 out of 4 bottles likely contaminant. E.coli and Strep, mixed anaerobes (beta lactamase positive) and Paz albicans , right thigh abscess/osteomyelitis, extending to pelvis/hip and R knee - S/P multiple dbridements Possible sacral osteomyelitis Schizoaffective disorder receives IM Haldol injections in the buttocks. Lower extremity neuropathy. Weight loss, loss of appetite Diarrhea check stool C. difficile Recommendations: Continue Ceftriaxone IV q12hrs dosing. Continue Flagyl to oral Continue Diflucan to oral Repeat Labs for PICC line today. Post hospital infusion orders in chart. Scripts printed on floor. Will sign off please call back if any change in clinical condition or questions. María Upton MD Dec 19, 2017 13:13
[2017-12-19] MEDS: ALPRAZolam 0.5 MG TAB PO PRN (13:18)
[2017-12-19] MEDS ORDERED: ARIP1TAB11 PO (14:08)
[2017-12-19] MEDS ORDERED: VALP250 PO (14:08)
[2017-12-19] MEDS ORDERED: FAMO20TA2 PO (14:08)
[2017-12-19] MEDS ORDERED: RISPM3 PO (14:08)
[2017-12-19] MEDS ORDERED: NORT25CA PO (14:10)
--- NOTE | 2017-12-19 15:22 | PD.WCN.NOT ---
Wound Consult Description: New Ostomy Teaching per Dr Torres and Dr Manzano Communicated with: Patient Recommendation: Continue emptying pouch when 1/3-1/2 full of effluent Change appliance as needed When sandrita is removed, use 2 piece appliance size 2 3/4" moldable with pouch Cleanse skin around stoma with water only and pat dry Measuring stoma with each appliance change Molding appliance to fit stoma size Additional Information: Patient seen on for ostomy assessment and teaching with appliance change. Ostomy Type: Colostomy (Loop) Surgeon: Too Torres MD Date of Surgery: Dec 05, 2017 Complete: Starter kit, Education materials (Left at bedside), Rx (Script left on chart for possible dc soon.), Other (3 supplies in size 2 3/4" ordered for patient to go home with at discharge.) Educated patient on: Changing appliance using 2 3/4" wafer and open ended pouch. How to remove wafer with adhesive removal wipes. Cleansing around stoma with water. Allowing skin to dry and prep with Cavilon if desired. Measuring stoma for correct wafer fit. Leaving steri strips in place over drain removal sites peristomally. Ensuring proper fit of wafer and pouch should be closed tightly to avoid leaks. Changing entire pouching system every 5-7 days and PRN for suspected or confirmed leaks. When to call the physician or seek medical attention for appearance changes in stoma and discoloration. No output from stoma in 24-48 hours may indicate a blockage or constipation and to notify physician. Additional information Patient seen on for ostomy assessment, teaching, and entire pouching system change using 2 3/4" colostomy kit. The sandrita had been previously removed over the weekend and when speaking with the patient, we both agreed that changing the appliance today without the sandrita would be a great teaching opportunity. Stoma is red, round, moist, moderately protruding, mildly edematous , mucocutaneous junction is intact, peristomal skin is minimally denuded @3 o' clock with pink shiny skin noted. Peristomal skin was sprinkled/dusted with stoma powder, excess wiped off and skin prep was applied to seal in powder prior to wafer application. There are 2 open areas noted to peristoma that were covered by the previous wafer and noted with scant sanguinous exudate that were cleansed with water and skin prepped with Cavilon spray prior to steri strip application by service writer. Patient states that he will likely be going home today. VAT came to bedside after assessment/appliance change was completed by service writer, for line insertion. Bhavani Carrillo [facility] HOSPITALMassimo Dec 19, 2017 15:22
--- NOTE | 2017-12-19 15:26 | HHI.DS ---
Discharge Summary Admission Date Nov 08, 2017 at 22:41 Discharge Date: Dec 19, 2017 Admitting Diagnosis Sepsis (1) Abscess of lower leg ICD Code: L02.419 - Cutaneous abscess of limb, unspecified (2) Abscess of right hip ICD Code: L02.415 - Cutaneous abscess of right lower limb (3) Cellulitis and abscess of lower extremity ICD Code: L03.119 - Cellulitis of unspecified part of limb; L02.419 - Cutaneous abscess of limb, unspecified (4) Schizoaffective disorder, bipolar type ICD Code: F25.0 - Schizoaffective disorder, bipolar type (5) Knee effusion, right ICD Code: M25.461 - Effusion, right knee Procedures 11/09/17 incision and drainage, irrigation and debridement of right hip abscess with placement of VAC dressing 11/11/17 removal of VAC device, irrigation and debridement of right gluteal hip abscess with placement of drain and replacement of VAC 11/16/17 irrigation and debridement of pelvic infection and abscess, irrigation and debridement of right thigh abscess, right knee arthrotomy with irrigation and debridement 11/16/17 incision and drainage, irrigation and debridement of complex lower extremity abscess with removal of subcutaneous tissue, fascia, and muscle, with application of VAC device 11/18/17 irrigation and debridement of right pelvis and hip, irrigation and debridement of right thigh, irrigation and debridement of right knee 11/21/17 irrigation and debridement of right hip, right thigh, and right knee. Application of wound VAC dressing 11/24/17 irrigation and debridement of right hip, right thigh, right knee. Secondary wound closure, application of wound VAC 11/30/17 I&D with skin grafting right thigh 12/01/17 Colonoscopy 12/05/17 colostomy Brief History - From Admission 41 year old male presents for evaluation of difficulty walking, generalized weakness that began earlier today. The patient arrives out in triage with a blood pressure systolic in the 70s. According to the patient's mother he has not been well since July. She reports that he was seen at another emergency department related to back and hip pain at that time. The patient at that time was also diagnosed with a fecal impaction and severe constipation. He has been since then seen by a abstract searcher. He was placed on a bowel regimen to help with the constipation, however his mother reports that he's been having difficulty maintaining it. The patient since July has been incontinent of stool and intermittently incontinent of urine. The stool is brown in color. The patient has a diagnosis of schizoaffective disorder and is a poor historian. His mother reports that he has a history of being diagnosed with a nerve problem involving the right leg and since Tuesday he has had swelling of the right leg. He reports having abdominal pain down in bilateral lower quadrants of the abdomen. He reports having nausea. They deny him having any known recent fevers, worsening cough or congestion, neck pain, chest pain, shortness of breath, weakness of his upper extremities, numbness or tingling of his upper extremities. The patient does however report having weakness of bilateral lower extremities with pain/sharp pains that shoot down into the right leg. The CT scan obtained in the emergency department shows abnormal appearance of the soft tissue of the proximal thigh and the gluteal region with fluid and gas tracking between the rectus muscle in the anterior thigh muscle. The combination of fluid and gas suggest either an infectious or necrotic process. CBC/BMP: 12/19/17 1110 12/19/17 1110 Significant Findings Laboratory Tests Test 12/19/17 11:10 Red Blood Count 3.49 MIL/MM3 (4.50-5.90) Hemoglobin 10.0 GM/DL (13.0-17.0) Hematocrit 30.4 % (39.0-51.0) Red Cell Distribution Width 18.4 % (11.6-17.2) Neutrophils (%) (Auto) 73.5 % (16.0-70.0) Lymphocytes (%) (Auto) 8.9 % (9.0-44.0) Monocytes (%) (Auto) 10.3 % (0.0-8.0) Eosinophils (%) (Auto) 6.1 % (0.0-4.0) Lymphocytes # (Auto) 0.6 TH/MM3 (1.0-4.8) Random Glucose 128 MG/DL (74-106) Aspartate Amino Transf (AST/SGOT) 45 U/L (15-37) Alanine Aminotransferase (ALT/SGPT) 7 U/L (12-78) Sodium Level 131 MEQ/L (136-145) Chloride Level 96 MEQ/L (98-107) C-Reactive Protein 11.30 MG/DL (0.00-0.30) Imaging Last Impressions Needle Aspiration Ultrasound 12/15/17 Signed Impressions: Service Date/Time: December 09:06 - CONCLUSION: No significant fluid collection identified under ultrasound guidance. Very minimal serosanguineous fluid aspirated. Amaury Lee MD Lower Extremity CT 12/12/17 Signed Impressions: Service Date/Time: Tuesday, December 12, 2017 20:22 - CONCLUSION: 1. Interval surgery with drainage of most of the thigh abscess. There is a residual loculated fluid collection anteriorly medial and lateral to the femur with measurements given above. Bertrand Smalls MD Abdomen/Pelvis CT 12/12/17 Signed Impressions: Service Date/Time: Tuesday, December 12, 2017 20:22 - CONCLUSION: 1. Large rectal mass measuring up to 12 x 8.4 cm in with abnormal fluid in the gluteal musculature which appears slightly less loculated than on November 15. There is also abnormal fluid and edematous swelling in the proximal thigh musculature anteriorly. There is placement of a left lower quadrant colostomy. 2. Bilateral pleural effusions and basilar airspace consolidation of the lungs has improved. Anasarca has improved. 3. Mild diffuse ileus. Bertrand Smalls MD Chest X-Ray 11/30/17 0600 Signed Impressions: Service Date/Time: Thursday, November 30, 2017 05:14 - CONCLUSION: No significant change has occurred. Oscar Mcmanus MD Lower Extremity Ultrasound 11/08/172011 Signed Impressions: Service Date/Time: Wednesday, November 08, 2017 20:41 - CONCLUSION: 1. Negative for deep venous thrombosis. There are mildly enlarged right inguinal lymph nodes. Bertrand Smalls MD Thoracic Spine MRI 11/08/17 Signed Impressions: Service Date/Time: Wednesday, November 08, 2017 22:01 - CONCLUSION: 1. Small bilateral pleural effusions. 2. No signal abnormalities in the thoracic vertebral bodies and no evidence of focal disc disease. Jace Bird MD Lumbar Spine MRI 11/08/17 Signed Impressions: Service Date/Time: Wednesday, November 08, 2017 22:01 - CONCLUSION: 1. No evidence of lumbar disc disease. 2. Soft tissue abnormality about the right gluteal region suggesting abscess with T2 prolongation and contrast enhancement ; this is incompletely included in the [id number] of the exam. 3. There is also abnormal signal within the marrow of the sacral and coccygeal marrow including contrast enhancement suggesting that the right thigh and gluteal abnormality may extend intraosseous, possibly osteomyelitis. Jace Bird MD PE at Discharge GENERAL: NAD SKIN: Warm and dry. HEAD: Normocephalic. EYES: No scleral icterus. No injection or drainage. NECK: Supple, trachea midline. No JVD or lymphadenopathy. CARDIOVASCULAR: Regular rate and rhythm without murmurs, gallops, or rubs. RESPIRATORY: Breath sounds equal bilaterally. No accessory muscle use. GASTROINTESTINAL: Abdomen soft, non-tender, nondistended. Colostomy bag in place MUSCULOSKELETAL: No cyanosis, or edema. Dressing over bilateral lower extremity. BACK: Nontender without obvious deformity. No CVA tenderness. Hospital Course While in the hospital, the patient was treated for: Severe sepsis bacteremia with strep viridans thigh abscess Status post multiple surgeries S/p I&D with skin grafting right thigh 11/30. Treated with IV Rocephin, by mouth Flagyl and Diflucan per ID PT was consulted Right knee effusion per Lower extremity CT 12/12/17 Needle aspiration ultrasounds 12/15/17 did not show any significant fluid collection Acute respiratory failure Resolved with IVF hydration. oxygen and nebs as needed. Invasive adenocarcinoma of the rectum Anemia - Heme positive stools. GI consult appreciated. Mass was noted on colonoscopy. Pathology c/w mod diff invasive adenocarcinoma. Colorectal surgery, medical oncology and radiation oncology consults appreciated. - s/p diverting colostomy 12/05 per CRS. - oncology recommending to hold off on radiation until after chemo. -colorectal surgery was consulted. -1 unit PRBC transfused 12/13/17- monitor H/H. Schizoaffective disorder - Treated with Depakote, risperidone, Abilify. - Alprazolam as needed. -Appreciate input from psychiatry Hypokalemia-Improved post replacement. DVT prophylaxis: Lovenox. Pt Condition on Discharge: Good Discharge Disposition: Disch w/ Home Health Serv Discharge Time: > 30 minutes Discharge Instructions DIET: Follow Instructions for: As Tolerated, No Restrictions Activities you can perform: Regular-No Restrictions Follow up Referrals: Appointment for Follow Up - 2 Weeks @ [facility] [place] with MD Dr.Reba Jerrell Huang Orthoped[facility] - 2 Weeks [facility] with Reynaldo Dan MD PCP Follow-up - 1 Week New Medications: Ceftriaxone Inj (Ceftriaxone Inj) 2 Gram Inj 2 GM IV Q12HR for Infection for 25 Days, VIAL 0 Refills Epinephrine Inj (Epinephrine Inj) 1 Mg/Ml (1 Ml) Inj 0.3 MG IV PUSH ONCE PRN for ALLERGIC REACTION, #1 VIAL Epinephrine Inj (Epinephrine Inj) 1 Mg/Ml (1 Ml) Inj 0.3 MG SQ ONCE PRN for ALLERGIC REACTION, #1 VIAL Give with any signs of respiratory distress. Fluconazole (Diflucan) 200 Mg Tab 400 MG PO DAILY for Infection for 14 Days, #28 TAB 0 Refills Hydrocortisone Inj (Solu-Cortef Inj) 250 Mg/2 Ml Inj 250 MG IV PUSH ONCE PRN for ALLERGIC REACTION, #1 VIAL 0 Refills Give over 30-60 seconds. Metronidazole (Flagyl) 500 Mg Tab 500 MG PO TID for Infection for 14 Days, TAB 0 Refills Alprazolam (Xanax) 0.5 Mg Tab 0.5 MG PO Q8H PRN for anxiety, #10 TAB Aripiprazole (Aripiprazole) 5 Mg Tab 5 MG PO DAILY for Control Seizures, #30 TAB Famotidine (Famotidine) 20 Mg Tab 20 MG PO Q12HR for Manage Heartburn, #60 TAB Gabapentin (Gabapentin) 100 Mg Cap 200 MG PO TID for Pain Management, #30 CAP Nortriptyline (Nortriptyline) 25 Mg Cap 25 MG PO HS for Pain Management, #30 CAP Oxycodone HCl/Acetaminophen (Oxycodone-Acetaminophen 5-325) 5 Mg-325 Mg Tablet 1 TAB PO Q4H PRN for PAIN SCALE 3 TO 6, #20 TAB Risperidone Odt (Risperdal M-Tab) 3 Mg Tab 3 MG PO Q12HR for Control Anxiety, #20 TAB Valproic Acid (Depakene) 250 Mg Cap 500 MG PO Q8HR for Control Seizures, #90 CAP Continued Medications: Divalproex ER (Depakote ER) 500 Mg Billie 500 MG PO TID for Control Seizures, #60 TAB 0 Refills 500mg in am; 1,000 mg HS Hydroxyzine HCl (Hydroxyzine HCl) 50 Mg Tab 50 MG PO TID, TAB 0 Refills Risperidone (Risperdal) 3 Mg Tab 3 MG PO Q12HR, #60 TAB 0 Refills Amaury Lainez MD Dec 19, 2017 15:26
[2017-12-19 16:00] VITALS: BP 117/78; PULSE 94; RESP 18; TEMP 97.5; O2SAT 100
--- NOTE | 2017-12-21 06:53 | EKG ---
Date Performed: 12/19/2017 Time Performed: 11:23:07 PTAGE: 41 years EKG: SINUS TACHYCARDIA ABNORMAL RHYTHM ECG BASELINE ARTIFACT MAKES THIS SUBSTANDARD FOR INTERPRE TATION BUT NO OBVIOUS CHANGE FROM THE PRIOR TRACING IS NOTED. PREVIOUS TRACING : 11/08/2017 20.01 DOCTOR: Ranjith Santiago Interpretating Date/Time 12/21/2017 06:52:59
== END 2017-12-19 18:08 | disposition home health service (06) | DRG 853 ==
LOC: NEPE 19:50 → NEDA 22:41 → N03A 11-09 00:57 → N07B 11-23 18:20
PROVIDERS: ADMIT Hospitalist; ATTEND Hospitalist
PROC: 0T9B70Z Drainage of Bladder with Drainage Device, Via Natural or Artificial Opening (ICD-10-PCS; 2017-11-08)
PROC: 0J9L00Z Drainage of Right Upper Leg Subcutaneous Tissue and Fascia with Drainage Device, Open Approach (ICD-10-PCS; 2017-11-09)
PROC: 5A1945Z Respiratory Ventilation, 24-96 Consecutive Hours (ICD-10-PCS; 2017-11-09)
PROC: 0KBN0ZZ Excision of Right Hip Muscle, Open Approach (ICD-10-PCS; principal; 2017-11-09 14:17)
PROC: 2W05X6Z Change Pressure Dressing on Back (ICD-10-PCS; 2017-11-11)
PROC: 3E10X8Z Irrigation of Skin and Mucous Membranes using Irrigating Substance (ICD-10-PCS; 2017-11-11)
PROC: 30233N1 Transfusion of Nonautologous Red Blood Cells into Peripheral Vein, Percutaneous Approach (ICD-10-PCS; 2017-11-11)
PROC: 0KBN0ZZ Excision of Right Hip Muscle, Open Approach (ICD-10-PCS; 2017-11-16)
PROC: 0S9D0ZZ Drainage of Left Knee Joint, Open Approach (ICD-10-PCS; 2017-11-16)
PROC: 0QD10ZZ Extraction of Sacrum, Open Approach (ICD-10-PCS; 2017-11-16)
PROC: 0J9L00Z Drainage of Right Upper Leg Subcutaneous Tissue and Fascia with Drainage Device, Open Approach (ICD-10-PCS; 2017-11-16)
PROC: 0KBQ0ZZ Excision of Right Upper Leg Muscle, Open Approach (ICD-10-PCS; 2017-11-18)
PROC: 3E1U38Z Irrigation of Joints using Irrigating Substance, Percutaneous Approach (ICD-10-PCS; 2017-11-18)
PROC: 0KBQ0ZZ Excision of Right Upper Leg Muscle, Open Approach (ICD-10-PCS; 2017-11-21)
PROC: 3E1U38Z Irrigation of Joints using Irrigating Substance, Percutaneous Approach (ICD-10-PCS; 2017-11-21)
PROC: 0KBQ0ZZ Excision of Right Upper Leg Muscle, Open Approach (ICD-10-PCS; 2017-11-24)
PROC: 0LBL0ZZ Excision of Right Upper Leg Tendon, Open Approach (ICD-10-PCS; 2017-11-24)
PROC: 0JQL0ZZ Repair Right Upper Leg Subcutaneous Tissue and Fascia, Open Approach (ICD-10-PCS; 2017-11-24)
PROC: 3E10X8Z Irrigation of Skin and Mucous Membranes using Irrigating Substance (ICD-10-PCS; 2017-11-24)
PROC: 0HRHX74 Replacement of Right Upper Leg Skin with Autologous Tissue Substitute, Partial Thickness, External Approach (ICD-10-PCS; 2017-11-29)
PROC: 0JDL0ZZ Extraction of Right Upper Leg Subcutaneous Tissue and Fascia, Open Approach (ICD-10-PCS; 2017-11-29)
PROC: 0DBP8ZX Excision of Rectum, Via Natural or Artificial Opening Endoscopic, Diagnostic (ICD-10-PCS; 2017-11-30)
PROC: 0D1N0Z4 Bypass Sigmoid Colon to Cutaneous, Open Approach (ICD-10-PCS; 2017-12-05)
PROC: 0WJP4ZZ Inspection of Gastrointestinal Tract, Percutaneous Endoscopic Approach (ICD-10-PCS; 2017-12-05)
PROC: 0WJJ4ZZ Inspection of Pelvic Cavity, Percutaneous Endoscopic Approach (ICD-10-PCS; 2017-12-05)
DX: A41.9 Sepsis, unspecified organism (principal); J96.00 Acute respiratory failure, unspecified whether with hypoxia or hypercapnia; J90 Pleural effusion, not elsewhere classified; M00.9 Pyogenic arthritis, unspecified; E87.0 Hyperosmolality and hypernatremia; E87.1 Hypo-osmolality and hyponatremia; R18.8 Other ascites; E87.8 Other disorders of electrolyte and fluid balance, not elsewhere classified; T80.29XA Infection following other infusion, transfusion and therapeutic injection, initial encounter; L02.415 Cutaneous abscess of right lower limb; L02.31 Cutaneous abscess of buttock; M46.28 Osteomyelitis of vertebra, sacral and sacrococcygeal region; L03.317 Cellulitis of buttock; K92.1 Melena; C19 Malignant neoplasm of rectosigmoid junction; D62 Acute posthemorrhagic anemia; F25.0 Schizoaffective disorder, bipolar type; R15.9 Full incontinence of feces; N39.498 Other specified urinary incontinence; G57.91 Unspecified mononeuropathy of right lower limb; F41.9 Anxiety disorder, unspecified; F17.210 Nicotine dependence, cigarettes, uncomplicated; E86.0 Dehydration; R65.20 Severe sepsis without septic shock; R63.4 Abnormal weight loss; E87.6 Hypokalemia; F12.90 Cannabis use, unspecified, uncomplicated; R59.0 Localized enlarged lymph nodes; K59.00 Constipation, unspecified; Z78.1 Physical restraint status; Z80.1 Family history of malignant neoplasm of trachea, bronchus and lung; B96.20 Unspecified Escherichia coli [E. coli] as the cause of diseases classified elsewhere
CPT/HCPCS: 10160; 31500; 36430; 36569; 36600; 51702; 71045; 72157; 72158; 73701; 74177; 76937; 76942; 77263; 77334; 80048; 80053; 80074; 80164; 80202; 80307; 81001; 82272; 82378; 82550; 82607; 82728; 82805; 82948; 83605; 83690; 83735; 83880; 84100; 84484; 85007; 85014; 85018; 85025; 85027; 85610; 85652; 85730; 86140; 86403; 86703; 86850; 86900; 86901; 86920; 87015; 87040; 87070; 87077; 87086; 87102; 87103; 87106; 87116; 87186; 87205; 87206; 87493; 87641; 88305; 93005; 93971; 94002; 94003; 94150; 94640; 94664; 96361; 96365; 96375; 99222; A9579; J0131; J0330; J0690; J0692; J0696; J1100; J1170; J1450; J1580; J1650; J1940; J2060; J2248; J2250; J2270; J2370; J2405; J2543; J2710; J3010; J3370; J3480; J7030; J7040; J7050; J7070; J7120; J7613; P9016; P9047; Q4081; Q9963; Q9967

== ENCOUNTER 2017-12-25 18:13 | Inpatient (IN) | payer OTHER ==
[~2017-12-25] VITALS: Ht 177.8 cm; Wt 65.0 kg
[~2017-12-25 18:13] MED LIST: ALPR.5 PO; ARIP1TAB11 PO; CEFT2INJ IV; DEPA500T3 PO; DIFL200T PO; EPIN1INJ21 IV PUSH; EPIN1INJ21 SQ; FAMO20TA2 PO; GABA100C4 PO; HYDR50TA94 PO; METR-1 PO; NORT25CA PO; OXYC1TAB63 PO; PROP20TA3 PO; RISP3 PO; RISPM3 PO; SOLU250I IV PUSH; VALP250 PO
[2017-12-25 18:22] VITALS: BP 128/98; PULSE 130; RESP 18; TEMP 100.4; O2SAT 98
[2017-12-25] MEDS ORDERED: SODIUM CHLOR 0.9% 1000 ML INJ 100 ML IV ONE (19:54)
[2017-12-25] MEDS ORDERED: SODIUM CHLOR 0.9% 1000 ML INJ 1,000 ML IV ONE ×2 (19:54)
[2017-12-25] MEDS ORDERED: IBUPROFEN 800 MG TAB PO ONE (20:00)
--- NOTE | 2017-12-25 20:14 | PD ---
HPI Chief Complaint: [employer] Problem Time Seen by Provider: 19:41 Travel History International Travel<30 days: No Contact w/Intl Traveler<30days: No Traveled to known affect area: No History of Present Illness HPI Patient is a 42-year-old male presenting to the emergency department for evaluation after his midline IV access pulled out yesterday. Pt has not received his IV ABX in 24 hours. He reports subjective fevers. He reports he had an abscess to the right thigh and had skin grafting. Mother is at bedside and states they were unaware the dressing needed to be changed daily. Pt has no other complaints at this time. He denies any abdominal pain, N/V, chest pain, SOB. PFSH Past Medical History Bipolar Disorder: Yes Anxiety: Yes Depression: Yes Cancer: Yes Gastrointestinal Disorders: Yes (rectal mass) Schizophrenia: Yes Past Surgical History Abdominal Surgery: Yes (colostomy) Other Surgery: Yes (I&D to right thigh, skin grafting.) Social History Alcohol Use: No Tobacco Use: Yes (one pack per day) Substance Use: No (he denies any history of IV drug use) Allergies-Medications (Allergen,Severity, Reaction): Coded Allergies: diphenhydramine (Verified Adverse Reaction, Unknown, 12/25/17) Reported Meds & Prescriptions Reported Meds & Active Scripts Active Nortriptyline (Nortriptyline HCl) 25 Mg Cap 25 Mg PO HS Depakene (Valproic Acid) 250 Mg Cap 500 Mg PO Q8HR Aripiprazole 5 Mg Tab 5 Mg PO DAILY Risperdal M-Tab (Risperidone) 3 Mg Tab 3 Mg PO Q12HR Famotidine 20 Mg Tab 20 Mg PO Q12HR Diflucan (Fluconazole) 200 Mg Tab 400 Mg PO DAILY 14 Days Flagyl (Metronidazole) 500 Mg Tab 500 Mg PO TID 14 Days Epinephrine Inj 1 Mg/Ml (1 Ml) Inj 0.3 Mg SQ ONCE PRN Give with any signs of respiratory distress. Epinephrine Inj 1 Mg/Ml (1 Ml) Inj 0.3 Mg IV PUSH ONCE PRN Solu-Cortef Inj (Hydrocortisone Sodium Succinate) 250 Mg/2 Ml Inj 250 Mg IV PUSH ONCE PRN Give over 30-60 seconds. Ceftriaxone Inj (Ceftriaxone Sodium) 2 Gram Inj 2 Gm IV Q12HR 25 Days Xanax (Alprazolam) 0.5 Mg Tab 0.5 Mg PO Q8H PRN Gabapentin 100 Mg Cap 200 Mg PO TID Oxycodone-Acetaminophen 5-325 (Oxycodone HCl/Acetaminophen) 5 Mg-325 Mg Tablet 1 Tab PO Q4H PRN Reported Depakote ER (Divalproex Sodium) 500 Mg Billie 500 Mg PO TID 500mg in am; 1,000 mg HS Risperdal (Risperidone) 3 Mg Tab 3 Mg PO Q12HR Hydroxyzine HCl 50 Mg Tab 50 Mg PO TID Propranolol (Propranolol HCl) 20 Mg Tab 20 Mg PO Q12HR Review of Systems Except as stated in HPI: all other systems reviewed are Neg General / Constitutional: Positive: Fever, Chills Cardiovascular: Positive: Tachycardia Skin: Positive Lesions Physical Exam Narrative GENERAL: Thin, alert male. Presenting in no acute distress. SKIN: Warm and dry. Right thigh with gloria and skin graft. On the inner upper aspect of the skin graft the gloria have opened, there is serous drainage noted. There is mild edema but no significant erythema. HEAD: Atraumatic. Normocephalic. EYES: Pupils equal and round. No scleral icterus. No injection or drainage. ENT: No nasal bleeding or discharge. Mucous membranes pink and moist. NECK: Trachea midline. No JVD. CARDIOVASCULAR: Regular rate and rhythm. RESPIRATORY: No accessory muscle use. Clear to auscultation. Breath sounds equal bilaterally. GASTROINTESTINAL: Abdomen firm, non-tender, nondistended. Hepatic and splenic margins not palpable. Colostomy MUSCULOSKELETAL: Extremities without clubbing, cyanosis, or edema. No obvious deformities. NEUROLOGICAL: Awake and alert. No obvious cranial nerve deficits. Motor grossly within normal limits. Five out of 5 muscle strength in the arms and legs. Normal speech. PSYCHIATRIC: Appropriate mood and affect; insight and judgment normal. Data Data Last Documented VS Vital Signs Date Time Temp Pulse Resp B/P (MAP) Pulse Ox O2 Delivery O2 Flow Rate FiO2 12/25/17 21:40 97.9 116 16 136/92 (107) 94 Room Air Orders Orders Sepsis Workup Initiated (12/25/17 ) Electrocardiogram (12/25/17 19:54) Complete Blood Count With Diff (12/25/17 19:54) Comprehensive Metabolic Panel (12/25/17 19:54) Prothrombin Time / Inr (Pt) (12/25/17 19:54) Act Partial Throm Time (Ptt) (12/25/17 19:54) Lactic Acid Sepsis Protocol (12/25/17 19:54) Magnesium (Mg) (12/25/17 19:54) Urinalysis - C+S If Indicated (12/25/17 19:54) Blood Culture (12/25/17 19:54) Wound Culture And Gram Stain (12/25/17 19:54) Chest, Single Ap (12/25/17 19:54) Blood Glucose (12/25/17 19:54) Ecg Monitoring (12/25/17 19:54) Iv Access Insert/Monitor (12/25/17 19:54) Oximetry (12/25/17 19:54) Oxygen Administration (12/25/17 19:54) Ibuprofen (Motrin) (12/25/17 20:00) Sodium Chlor 0.9% 1000 Ml Inj (Ns 1000 M (12/25/17 19:54) Sodium Chlor 0.9% 1000 Ml Inj (Ns 1000 M (12/25/17 19:54) Sodium Chlor 0.9% 1000 Ml Inj (Ns 1000 M (12/25/17 19:54) C-Reactive Protein (Crp) (12/25/17 19:54) Westergren Sedimentation Rate (12/25/17 19:54) Ceftriaxone Inj (Rocephin Inj) (12/25/17 20:15) Vancomycin Inj (Vancomycin Inj) (12/25/17 20:15) Admit Order (Ed Use Only) (12/25/17 22:32) Labs Laboratory Tests Test 12/25/17 20:25 12/25/17 20:55 White Blood Count 11.1 TH/MM3 Red Blood Count 2.83 MIL/MM3 Hemoglobin 8.3 GM/DL Hematocrit 24.4 % Mean Corpuscular Volume 86.0 FL Mean Corpuscular Hemoglobin 29.2 PG Mean Corpuscular Hemoglobin Concent 33.9 % Red Cell Distribution Width 19.3 % Platelet Count 540 TH/MM3 Mean Platelet Volume 7.2 FL Neutrophils (%) (Auto) 81.6 % Lymphocytes (%) (Auto) 7.5 % Monocytes (%) (Auto) 9.0 % Eosinophils (%) (Auto) 1.5 % Basophils (%) (Auto) 0.4 % Neutrophils # (Auto) 9.0 TH/MM3 Lymphocytes # (Auto) 0.8 TH/MM3 Monocytes # (Auto) 1.0 TH/MM3 Eosinophils # (Auto) 0.2 TH/MM3 Basophils # (Auto) 0.0 TH/MM3 CBC Comment DIFF FINAL Differential Comment Erythrocyte Sedimentation Rate 61 mm/hr Prothrombin Time 12.8 SEC Prothromb Time International Ratio 1.3 RATIO Activated Partial Thromboplast Time 30.3 SEC Blood Urea Nitrogen 8 MG/DL Creatinine 0.65 MG/DL Random Glucose 114 MG/DL Total Protein 7.3 GM/DL Albumin 3.3 GM/DL Calcium Level 10.0 MG/DL Magnesium Level 1.6 MG/DL Alkaline Phosphatase 53 U/L Aspartate Amino Transf (AST/SGOT) 53 U/L Alanine Aminotransferase (ALT/SGPT) 9 U/L Total Bilirubin 0.2 MG/DL Sodium Level 127 MEQ/L Potassium Level 4.3 MEQ/L Chloride Level 92 MEQ/L Carbon Dioxide Level 27.6 MEQ/L Anion Gap 7 MEQ/L Estimat Glomerular Filtration Rate 136 ML/MIN Lactic Acid Level 2.1 mmol/L C-Reactive Protein 10.00 MG/DL Urine Color YELLOW Urine Turbidity CLEAR Urine pH 6.0 Urine Specific Warren 1.005 Urine Protein NEG mg/dL Urine Glucose (UA) NEG mg/dL Urine Ketones NEG mg/dL Urine Occult Blood NEG Urine Nitrite NEG Urine Bilirubin NEG Urine Urobilinogen LESS THAN 2.0 MG/DL Urine Leukocyte Esterase NEG Urine WBC 1 /hpf Urine Bacteria RARE /hpf Microscopic Urinalysis Comment CULT NOT INDICATED MDM Medical Decision Making Medical Screen Exam Complete: Yes Emergency Medical Condition: Yes Medical Record Reviewed: Yes Interpretation(s) Vital Signs Date Time Temp Pulse Resp B/P (MAP) Pulse Ox O2 Delivery O2 Flow Rate FiO2 12/25/17 21:40 97.9 116 16 136/92 (107) 12/25/17 20:12 121 15 95 12/25/17 18:22 100.4 130 18 128/98 (108) 98 Laboratory Tests Test 12/25/17 20:25 12/25/17 20:55 White Blood Count 11.1 TH/MM3 Red Blood Count 2.83 MIL/MM3 Hemoglobin 8.3 GM/DL Hematocrit 24.4 % Mean Corpuscular Volume 86.0 FL Mean Corpuscular Hemoglobin 29.2 PG Mean Corpuscular Hemoglobin Concent 33.9 % Red Cell Distribution Width 19.3 % Platelet Count 540 TH/MM3 Mean Platelet Volume 7.2 FL Neutrophils (%) (Auto) 81.6 % Lymphocytes (%) (Auto) 7.5 % Monocytes (%) (Auto) 9.0 % Eosinophils (%) (Auto) 1.5 % Basophils (%) (Auto) 0.4 % Neutrophils # (Auto) 9.0 TH/MM3 Lymphocytes # (Auto) 0.8 TH/MM3 Monocytes # (Auto) 1.0 TH/MM3 Eosinophils # (Auto) 0.2 TH/MM3 Basophils # (Auto) 0.0 TH/MM3 CBC Comment DIFF FINAL Differential Comment Erythrocyte Sedimentation Rate 61 mm/hr Prothrombin Time 12.8 SEC Prothromb Time International Ratio 1.3 RATIO Activated Partial Thromboplast Time 30.3 SEC Blood Urea Nitrogen 8 MG/DL Creatinine 0.65 MG/DL Random Glucose 114 MG/DL Total Protein 7.3 GM/DL Albumin 3.3 GM/DL Calcium Level 10.0 MG/DL Magnesium Level 1.6 MG/DL Alkaline Phosphatase 53 U/L Aspartate Amino Transf (AST/SGOT) 53 U/L Alanine Aminotransferase (ALT/SGPT) 9 U/L Total Bilirubin 0.2 MG/DL Sodium Level 127 MEQ/L Potassium Level 4.3 MEQ/L Chloride Level 92 MEQ/L Carbon Dioxide Level 27.6 MEQ/L Anion Gap 7 MEQ/L Estimat Glomerular Filtration Rate 136 ML/MIN Lactic Acid Level 2.1 mmol/L C-Reactive Protein 10.00 MG/DL Urine Color YELLOW Urine Turbidity CLEAR Urine pH 6.0 Urine Specific Warren 1.005 Urine Protein NEG mg/dL Urine Glucose (UA) NEG mg/dL Urine Ketones NEG mg/dL Urine Occult Blood NEG Urine Nitrite NEG Urine Bilirubin NEG Urine Urobilinogen LESS THAN 2.0 MG/DL Urine Leukocyte Esterase NEG Urine WBC 1 /hpf Urine Bacteria RARE /hpf Microscopic Urinalysis Comment CULT NOT INDICATED Differential Diagnosis Sepsis versus metabolic abnormality versus wound infection versus other Narrative Course Patient is a 42-year-old male presenting due to his midline access pulling out 24 hours ago. Patient has missed 3 doses of IV Rocephin. He presents with a fever of 100.4 and tachycardia. Sepsis workup initiated, wound culture obtained. Labs and imaging ordered and pending. Mother is at bedside. CBC with a white count of 11.1, this is elevated when compared to prior of 7.1. Lactic acid 2.1, CRP is 10, sed rate 61, sodium 127, urinalysis is unremarkable. Blood culture and wound culture pending. Rocephin and vancomycin ordered. Temp trended down after administration of ibuprofen. Patient has received 1-1/4 L of IV fluids out of the 3 ordered. Heart rate has trended down to 115. Patient was reassessed and is resting comfortably. Mother is at bedside still. Patient will be admitted for sepsis. Discussed with Dr. Sanchez who accepted admit. Orders placed. Patient and mother updated. Sepsis Criteria SIRS Criteria (2 or more): Heart rate over 90 Sepsis Criteria (SIRS+source): Infect source susp/known Severe Sepsis (+one): Lactate >2 Diagnosis Primary Impression: Cellulitis and abscess of lower extremity Admitting Information Admitting Physician Requests: Admit Condition: Stable Kisha Burton Dec 25, 2017 20:14
[2017-12-25] MEDS ORDERED: VANCOMYCIN INJ 1,000 MG in SODIUM CHLOR 0.9% 250 ML INJ 250 ML IV ONE (20:15)
[2017-12-25] MEDS ORDERED: cefTRIAXone INJ 2,000 MG in SODIUM CHLORIDE 0.9% INJ 100 ML IV ONE (20:15)
[2017-12-25 21:05] LABS: BASOPHIL % 0.4 % (0.0-2.0); EOSINOPHIL # 0.2 TH/MM3 (0-0.4); EOSINOPHIL % 1.5 % (0.0-4.0); HEMATOCRIT 24.4 % (39.0-51.0); HEMOGLOBIN 8.3 GM/DL (13.0-17.0); LYMPH % 7.5 % (9.0-44.0); LYMPHOCYTE # 0.8 TH/MM3 (1.0-4.8); MEAN CORPUSCULAR HEMOGLOBIN 29.2 PG (27.0-34.0); MEAN CORPUSCULAR HGB CONC 33.9 % (32.0-36.0); MEAN PLATELET VOLUME 7.2 FL (7.0-11.0); NEUT % 81.6 % (16.0-70.0); PLATELET COUNT 540 TH/MM3 (150-450); RED BLOOD COUNT 2.83 MIL/MM3 (4.50-5.90); RED CELL DISTRIBUTION WIDTH 19.3 % (11.6-17.2); WHITE BLOOD COUNT 11.1 TH/MM3 (4.0-11.0)
[2017-12-25 21:16] LABS: INTERNATIONAL NORMALIZED RATIO 1.3 RATIO; PROTHROMBIN TIME - PATIENT 12.8 SEC (9.8-11.6)
[2017-12-25 21:20] LABS: ALT (GPT) 9 U/L (12-78)
[2017-12-25 21:22] LABS: ALKALINE PHOSPHATASE 53 U/L (45-117); TOTAL BILIRUBIN ADULT 0.2 MG/DL (0.2-1.0); TOTAL PROTEIN 7.3 GM/DL (6.4-8.2)
[2017-12-25 21:24] LABS: LACTIC ACID SEPSIS PROTOCOL 2.1 mmol/L (0.4-2.0)
[2017-12-25 21:25] LABS: ALBUMIN 3.3 GM/DL (3.4-5.0); AST (GOT) 53 U/L (15-37); BICARBONATE 27.6 MEQ/L (21.0-32.0); BLOOD UREA NITROGEN 8 MG/DL (7-18); CHLORIDE 92 MEQ/L (98-107); CREATININE 0.65 MG/DL (0.60-1.30); GLOMERULAR FILTRATION RATE 136 ML/MIN (>89); GLUCOSE,RANDOM 114 MG/DL (74-106); MAGNESIUM 1.6 MG/DL (1.5-2.5); SODIUM (NA) 127 MEQ/L (136-145)
[2017-12-25 21:40] VITALS: BP 136/92; PULSE 116; RESP 16; TEMP 97.9; O2SAT 94
[2017-12-25 21:43] LABS: BACTERIA, URINE RARE /hpf; BILIRUBIN, URINE NEG (NEG); BLOOD, URINE NEG (NEG); GLUCOSE,URINE NEG (NEG); KETONE, URINE NEG (NEG); NITRITE,URINE NEG (NEG); URINE COLOR YELLOW (YELLW/STRAW); URINE LEUKOCYTE ESTERASE NEG (NEG)
--- NOTE | 2017-12-25 21:59 | PD ---
Physical Exam Narrative I, Dr. Adam, have reviewed the advance practice practitioner's documentation and am in agreement, met with the patient face to face, made the diagnosis, and the medical decision making was done by me. *My assessment and Findings: Sepsis 42yo M with right thigh abscess s/p skin graft had PICC line pulled out and has not gotten his antibiotics. Pt initially was tachycardic and had mild fever of 100.4F. Sepsis work up initiated and labs reviewed, WBC 11.1. H/H low at 8.3/ 24.4. ESR elevated at 61. Lactic acid mildly elevated at 2.1. Mild hyponatremia at 127. C-reactive protein elevated but trending down from prior. Pt given ceftriaxone and vancomycin. Pt receiving NS IVF x3 and HR is improving. Pt admitted to Dr. Sanchez's service. Data Data Last Documented VS Vital Signs Date Time Temp Pulse Resp B/P (MAP) Pulse Ox O2 Delivery O2 Flow Rate FiO2 12/25/17 21:40 97.9 116 16 136/92 (107) 94 Room Air Orders Orders Sepsis Workup Initiated (12/25/17 ) Electrocardiogram (12/25/17 19:54) Complete Blood Count With Diff (12/25/17 19:54) Comprehensive Metabolic Panel (12/25/17 19:54) Prothrombin Time / Inr (Pt) (12/25/17 19:54) Act Partial Throm Time (Ptt) (12/25/17 19:54) Lactic Acid Sepsis Protocol (12/25/17 19:54) Magnesium (Mg) (12/25/17 19:54) Urinalysis - C+S If Indicated (12/25/17 19:54) Blood Culture (12/25/17 19:54) Wound Culture And Gram Stain (12/25/17 19:54) Chest, Single Ap (12/25/17 19:54) Blood Glucose (12/25/17 19:54) Ecg Monitoring (12/25/17 19:54) Iv Access Insert/Monitor (12/25/17 19:54) Oximetry (12/25/17 19:54) Oxygen Administration (12/25/17 19:54) Ibuprofen (Motrin) (12/25/17 20:00) Sodium Chlor 0.9% 1000 Ml Inj (Ns 1000 M (12/25/17 19:54) Sodium Chlor 0.9% 1000 Ml Inj (Ns 1000 M (12/25/17 19:54) Sodium Chlor 0.9% 1000 Ml Inj (Ns 1000 M (12/25/17 19:54) C-Reactive Protein (Crp) (12/25/17 19:54) Westergren Sedimentation Rate (12/25/17 19:54) Ceftriaxone Inj (Rocephin Inj) (12/25/17 20:15) Vancomycin Inj (Vancomycin Inj) (12/25/17 20:15) Admit Order (Ed Use Only) (12/25/17 22:32) Labs Laboratory Tests Test 12/25/17 20:25 12/25/17 20:55 White Blood Count 11.1 TH/MM3 Red Blood Count 2.83 MIL/MM3 Hemoglobin 8.3 GM/DL Hematocrit 24.4 % Mean Corpuscular Volume 86.0 FL Mean Corpuscular Hemoglobin 29.2 PG Mean Corpuscular Hemoglobin Concent 33.9 % Red Cell Distribution Width 19.3 % Platelet Count 540 TH/MM3 Mean Platelet Volume 7.2 FL Neutrophils (%) (Auto) 81.6 % Lymphocytes (%) (Auto) 7.5 % Monocytes (%) (Auto) 9.0 % Eosinophils (%) (Auto) 1.5 % Basophils (%) (Auto) 0.4 % Neutrophils # (Auto) 9.0 TH/MM3 Lymphocytes # (Auto) 0.8 TH/MM3 Monocytes # (Auto) 1.0 TH/MM3 Eosinophils # (Auto) 0.2 TH/MM3 Basophils # (Auto) 0.0 TH/MM3 CBC Comment DIFF FINAL Differential Comment Erythrocyte Sedimentation Rate 61 mm/hr Prothrombin Time 12.8 SEC Prothromb Time International Ratio 1.3 RATIO Activated Partial Thromboplast Time 30.3 SEC Blood Urea Nitrogen 8 MG/DL Creatinine 0.65 MG/DL Random Glucose 114 MG/DL Total Protein 7.3 GM/DL Albumin 3.3 GM/DL Calcium Level 10.0 MG/DL Magnesium Level 1.6 MG/DL Alkaline Phosphatase 53 U/L Aspartate Amino Transf (AST/SGOT) 53 U/L Alanine Aminotransferase (ALT/SGPT) 9 U/L Total Bilirubin 0.2 MG/DL Sodium Level 127 MEQ/L Potassium Level 4.3 MEQ/L Chloride Level 92 MEQ/L Carbon Dioxide Level 27.6 MEQ/L Anion Gap 7 MEQ/L Estimat Glomerular Filtration Rate 136 ML/MIN Lactic Acid Level 2.1 mmol/L C-Reactive Protein 10.00 MG/DL Urine Color YELLOW Urine Turbidity CLEAR Urine pH 6.0 Urine Specific [place] 1.005 Urine Protein NEG mg/dL Urine Glucose (UA) NEG mg/dL Urine Ketones NEG mg/dL Urine Occult Blood NEG Urine Nitrite NEG Urine Bilirubin NEG Urine Urobilinogen LESS THAN 2.0 MG/DL Urine Leukocyte Esterase NEG Urine WBC 1 /hpf Urine Bacteria RARE /hpf Microscopic Urinalysis Comment CULT NOT INDICATED MDM Supervised Visit with IAM: Yes Sepsis Criteria SIRS Criteria (2 or more): Heart rate over 90 Sepsis Criteria (SIRS+source): Infect source susp/known Diagnosis Primary Impression: Sepsis Qualified Codes: A41.9 - Sepsis, unspecified organism Admitting Information Admitting Physician Requests: Josey Lyons DO Dec 25, 2017 21:59
--- NOTE | 2017-12-25 22:26 | RADRPT ---
EXAM DATE/TIME: 12/25/2017 21:56 [facility] COMPARISON: CHEST SINGLE AP, November 30, 2017, 5:14. INDICATIONS : Fever. Weakness. MEDICAL HISTORY : None. SURGICAL HISTORY : None. ENCOUNTER: Initial ACUITY: 2 days PAIN SCORE: 5/10 LOCATION: Bilateral chest FINDINGS: A single view of the chest demonstrates the lungs to be symmetrically aerated without evidence of mas s, infiltrate or effusion. The cardiomediastinal contours are unremarkable. Osseous structures are intact. CONCLUSION: No infiltrates seen. Jace Bird MD on December 25, 2017 at 22:24 Board Certified Radiologist. This report was verified electronically.
[2017-12-25] MEDS ORDERED: BISACODYL 10 MG SUPP RECTAL PRN (22:45)
[2017-12-25] MEDS ORDERED: EPINEPHrine HCL (1:1000) 1 MG/ML VIAL IV PUSH PRN (22:45)
[2017-12-25] MEDS ORDERED: MAGNESIUM HYDROXIDE SUSP 30 ML CUP PO PRN (22:45)
[2017-12-25] MEDS ORDERED: NALOXONE HCL 0.4 MG/ML AMP IV PUSH PRN (22:45)
[2017-12-25] MEDS ORDERED: HYDROCORTISONE SOD SUCCINATE 250 MG VIAL IV PUSH PRN (22:45)
[2017-12-25] MEDS ORDERED: EPINEPHrine HCL (1:1000) 1 MG/ML VIAL SQ PRN (22:45)
[2017-12-25] MEDS ORDERED: SENNOSIDES 8.6 MG TAB PO PRN (22:45)
[2017-12-25] MEDS ORDERED: SODIUM CHLORIDE 0.9% FLUSH 10 ML FLUSH IV FLUSH PRN (22:45)
[2017-12-25] MEDS ORDERED: ONDANSETRON HCL 4 MG/2 ML VIAL IVP PRN (22:45)
[2017-12-25] MEDS ORDERED: ALPRAZolam 0.5 MG TAB PO PRN (22:45)
[2017-12-25] MEDS ORDERED: LACTULOSE SYRUP 20 GM/30 ML CUP PO PRN (22:45)
[2017-12-25 23:00] VITALS: BP 135/92; PULSE 107; RESP 16; O2SAT 98
[2017-12-26] VITALS (11 sets, daily range): BP systolic 114–165; BP diastolic 75–97; PULSE 88–108; RESP 16–24; TEMP 97.5–98.5; O2SAT 93–99
[2017-12-26 05:10] LABS: AUTOMATED NEUTROPHIL # 9.1 TH/MM3 (1.8-7.7); BASOPHIL # 0.1 TH/MM3 (0-0.2); BASOPHIL % 1.2 % (0.0-2.0); EOSINOPHIL # 0.4 TH/MM3 (0-0.4); EOSINOPHIL % 3.4 % (0.0-4.0); HEMATOCRIT 24.1 % (39.0-51.0); HEMOGLOBIN 8.2 GM/DL (13.0-17.0); LYMPH % 7.2 % (9.0-44.0); LYMPHOCYTE # 0.8 TH/MM3 (1.0-4.8); MEAN CELL VOLUME 87.1 FL (80.0-100.0); MEAN CORPUSCULAR HEMOGLOBIN 29.6 PG (27.0-34.0); MEAN PLATELET VOLUME 6.8 FL (7.0-11.0); MONO % 8.1 % (0.0-8.0); MONOCYTE # 0.9 TH/MM3 (0-0.9); NEUT % 80.1 % (16.0-70.0); PLATELET COUNT 496 TH/MM3 (150-450); RED BLOOD COUNT 2.76 MIL/MM3 (4.50-5.90); RED CELL DISTRIBUTION WIDTH 19.5 % (11.6-17.2); WHITE BLOOD COUNT 11.4 TH/MM3 (4.0-11.0)
[2017-12-26 05:40] LABS: ALKALINE PHOSPHATASE 46 U/L (45-117); ALT (GPT) 7 U/L (12-78); AST (GOT) 49 U/L (15-37); BLOOD UREA NITROGEN 8 MG/DL (7-18); CALCIUM 9.1 MG/DL (8.5-10.1); CHLORIDE 100 MEQ/L (98-107); CREATININE 0.54 MG/DL (0.60-1.30); GLOMERULAR FILTRATION RATE 169 ML/MIN (>89); GLUCOSE,RANDOM 123 MG/DL (74-106); SODIUM (NA) 134 MEQ/L (136-145); TOTAL BILIRUBIN ADULT 0.2 MG/DL (0.2-1.0); TOTAL PROTEIN 6.5 GM/DL (6.4-8.2)
[2017-12-26] MEDS: VALPROIC ACID 250 MG CAP PO SCH ×3 (07:56→21:29)
--- NOTE | 2017-12-26 08:25 | PD.ORT.PN ---
Subjective Subjective Remarks s/p right thigh infection and skin grafting reports that picc line got pulled out. denies any pain in leg Objective Vitals Vital Signs Date Time Temp Pulse Resp B/P (MAP) Pulse Ox O2 Delivery O2 Flow Rate FiO2 12/26/17 07:30 98.0 103 16 134/94 (107) 96 Room Air 12/26/17 04:00 99 16 129/87 (101) 95 Room Air 12/26/17 03:00 100 16 123/77 (92) 95 Room Air 12/26/17 02:00 105 16 165/97 (119) 97 Nasal Cannula 2.00 12/26/17 00:00 106 16 130/87 (101) 99 Nasal Cannula 2.00 12/25/17 23:00 107 16 135/92 (106) 98 Nasal Cannula 2.00 12/25/17 21:40 97.9 116 16 136/92 (107) 94 Room Air 12/25/17 20:12 121 15 95 12/25/17 18:22 100.4 130 18 128/98 (108) 98 I/O 12/25/17 12/25/17 12/25/17 12/26/17 12/26/17 12/26/17 07:00 15:00 23:00 07:00 15:00 23:00 Intake Total 3100 ml Balance 3100 ml Intake IV Total 3100 ml Result Diagram: 12/26/17 0449 12/26/17 0449 Other Results Laboratory Tests Test 12/25/17 20:25 Prothromb Time International Ratio 1.3 RATIO Prothrombin Time 12.8 SEC (9.8-11.6) Imaging Last 24 hours Impressions Chest X-Ray 12/25/171953 Signed Impressions: Service Date/Time: Monday, December 25, 2017 21:56 - CONCLUSION: No infiltrates seen. Jace Bird MD Objective Remarks RLE: skin graft appears clean and dry. healing well. area of superior apex of skin graft still not healed completely. minimal drainage. remaining incision clean and healed well. nvi. no fluctuance. no erythema. Assessment & Plan Assessment and Plan 1) Right leg skin graft s/p infection and washout -npo after MN -mri of right thigh today to eval for possible abscess Gigi Rodríguez/[employer] PA Dec 26, 2017 08:25
[2017-12-26] MEDS ORDERED: DIVALPROEX SODIUM E.R. 500 MG TAB PO SCH (09:00)
[2017-12-26] MEDS ORDERED: risperiDONE ODT 3 MG TAB PO SCH (09:00)
[2017-12-26] MEDS: DOCUSATE SODIUM 50 MG/SENNA 8.6 MG TAB PO SCH ×2 (09:00→21:00)
[2017-12-26] MEDS ORDERED: cefTRIAXone 2,000 MG VIAL IV SCH (09:00)
[2017-12-26] MEDS: oxyCODONE/ACETAMINOPHEN 5 MG/325 MG TAB PO PRN ×3 (09:13→21:28)
[2017-12-26] MEDS ORDERED: GADODIAMIDE PF 287 MG/ML 5 ML VIAL (for RAD MRI) IVCONTRAST ONE (09:26)
--- NOTE | 2017-12-26 10:19 | RADRPT ---
EXAM DATE/TIME: 12/26/2017 08:44 [facility] COMPARISON: CT FEMUR RIGHT W CONTRAST, December 12, 2017, 20:22. MRI LUMBAR SPINE W & W/O CONTRAST, November 08, 2017, 22:01. INDICATIONS : Right hip pain. History of dog bite to rigt hip with gloria. CONTRAST: 13 cc Omniscan (gadodiamide) IV MEDICAL HISTORY : Carcinoma, rectal. SURGICAL HISTORY : Colostomy. skin graft ENCOUNTER: Subsequent ACUITY: 4-6 days PAIN SCORE: 7/10 LOCATION: Right hip TECHNIQUE: Multiplanar multisequence MRI examination of the thigh was performed with and without contrast. FINDINGS: The examination demonstrates subtle areas of ferromagnetic artifact in the skin gloria in the patien t's anterior and lateral right thigh. The vastus muscle group and anterior compartment of the thigh are intact. The rectus femoris muscle a ppears intact. There are some edematous changes within the subcutaneous fat. The last image of the examination demonstrates a small fluid collection which appears to be beneath t he iliotibial band along the lateral margin of the distal thigh just at the level of the knee. This i s quite small measuring approximately 1.3 x 0.6 CM. The visualized portions of femur are intact. No abnormal marrow signal is identified. CONCLUSION: 1. The last image of the examination demonstrates a 0.6 x 1.3 cm fluid collection adjacent to the mars otibial band at essentially the level of the knee. There is some enhancement around this. This may si mply represent some postoperative fluid tracking along the iliotibial band. In the appropriate clinic al setting, I cannot exclude a small area of infection/abscess. This appears too small for drainage. 2. The vastus muscle group and rectus femoris muscles appear intact. I see no drainable fluid collect ion within them. José Antonio Ch MD on December 26, 2017 at 10:08 Board Certified Radiologist. This report was verified electronically.
[2017-12-26] MEDS: cefTRIAXone 2,000 MG/NS 100 ML IV SCH ×4 (10:32→21:30)
[2017-12-26] MEDS: SODIUM CHLORIDE 0.9% FLUSH 10 ML FLUSH IV FLUSH SCH ×2 (10:32→21:30)
[2017-12-26] MEDS: PROPRANOLOL HCL 20 MG TAB PO SCH ×2 (10:35→21:29)
[2017-12-26] MEDS: FAMOTIDINE 20 MG TAB PO SCH ×2 (10:35→21:28)
[2017-12-26] MEDS: ARIPiprazole 5 MG TAB PO SCH (10:36)
[2017-12-26] MEDS: GABAPENTIN 100 MG CAP PO SCH ×3 (10:36→17:54)
[2017-12-26] MEDS: metroNIDAZOLE 500 MG TAB PO SCH ×3 (10:36→17:54)
[2017-12-26] MEDS: HEPARIN SODIUM - SQ 10,000 UNITS/ML VIAL SQ SCH ×2 (10:37→21:31)
[2017-12-26] MEDS: risperiDONE 3 MG TAB PO SCH ×2 (10:40→21:30)
[2017-12-26] MEDS: hydrOXYzine HCL 50 MG TAB PO SCH ×3 (10:40→17:54)
[2017-12-26] MEDS: FLUCONAZOLE 200 MG TAB PO SCH (10:40)
--- NOTE | 2017-12-26 14:05 | HHI.HP ---
History of Present Illness Primary Care Physician Black Sanchez, DO Admission Diagnosis CELLULITIS/ABSCESS Diagnoses: History of Present Illness Patient is a 42-year-old male presenting to the emergency department to have midline replaced.He has been on Iv antibiotics, administered by his mom for R thigh abscess. He was just D/C on 12/19 after 6 weeks of being hospital. He was found to have rectal carcinoma, w/ colostomy done on 12/05 and had multiple ID done to Right pelvis and hip with skin graft done to R thigh on 11/30. In er he was tachycardic with temp 100.4, lactic acid elevated at 2.1. He was given 3 liters of IVF, Rocephin and Vancomycin. Review of Systems Constitutional: COMPLAINS OF: Chills Gastrointestinal: COMPLAINS OF: Constipation Psychiatric: COMPLAINS OF: Anxiety, Depression Except as stated in HPI: all other systems reviewed are Neg Past Family Social History Allergies: Coded Allergies: diphenhydramine (Verified Adverse Reaction, Unknown, 12/25/17) Past Medical History Depression Anxiety Bipolar Rectal Cancer Schizophrenia Past Surgical History Skin graft Colostomy Reported Medications eported Meds & Active Scripts Active Nortriptyline (Nortriptyline HCl) 25 Mg Cap 25 Mg PO HS Reported Depakote ER (Divalproex Sodium) 500 Mg Billie 500 Mg PO TID 500mg in am; 1,000 mg HS Risperdal (Risperidone) 3 Mg Tab 3 Mg PO Q12HR Hydroxyzine HCl 50 Mg Tab 50 Mg PO TID Propranolol (Propranolol HCl) 20 Mg Tab 20 Mg PO Q12HR Active Ordered Medications Depakene (Valproic Acid) 250 Mg Cap 500 Mg PO Q8HR Aripiprazole 5 Mg Tab 5 Mg PO DAILY Risperdal M-Tab (Risperidone) 3 Mg Tab 3 Mg PO Q12HR Famotidine 20 Mg Tab 20 Mg PO Q12HR Diflucan (Fluconazole) 200 Mg Tab 400 Mg PO DAILY 14 Days Flagyl (Metronidazole) 500 Mg Tab 500 Mg PO TID 14 Days Epinephrine Inj 1 Mg/Ml (1 Ml) Inj 0.3 Mg SQ ONCE PRN Give with any signs of respiratory distress. Epinephrine Inj 1 Mg/Ml (1 Ml) Inj 0.3 Mg IV PUSH ONCE PRN Solu-Cortef Inj (Hydrocortisone Sodium Succinate) 250 Mg/2 Ml Inj 250 Mg IV PUSH ONCE PRN Give over 30-60 seconds. Ceftriaxone Inj (Ceftriaxone Sodium) 2 Gram Inj 2 Gm IV Q12HR 25 Days Xanax (Alprazolam) 0.5 Mg Tab 0.5 Mg PO Q8H PRN Gabapentin 100 Mg Cap 200 Mg PO TID Oxycodone-Acetaminophen 5-325 (Oxycodone HCl/Acetaminophen) 5 Mg-325 Mg Tablet 1 Tab PO Q4H PRN Current Medications Medications (Trade) Dose Ordered Sig/Mega Route Start Time Stop Time Status Last Admin (NS Flush) 2 ml UNSCH PRN IV FLUSH 12/25/17 22:45 (NS Flush) 2 ml BID IV FLUSH 12/26/17 09:00 12/26/17 10:32 (Zofran Inj) 4 mg Q6H PRN IVP 12/25/17 22:45 (Heparin Inj) 5,000 units Q12H SQ 12/26/17 09:00 12/26/17 10:37 (Narcan Inj) 0.4 mg UNSCH PRN IV PUSH 12/25/17 22:45 (Betty-Colace) 1 tab BID PO 12/26/17 09:00 (Milk Of Magnesia Liq) 30 ml Q12H PRN PO 12/25/17 22:45 (Senokot) 17.2 mg Q12H PRN PO 12/25/17 22:45 (Dulcolax Supp) 10 mg DAILY PRN RECTAL 12/25/17 22:45 (Lactulose Liq) 30 ml DAILY PRN PO 12/25/17 22:45 (Xanax) 0.5 mg Q8H PRN PO 12/25/17 22:45 12/26/17 09:12 (Abilify) 5 mg DAILY PO 12/26/17 09:00 12/26/17 10:36 (Adrenalin (1:1000) Inj) 0.3 mg ONCE PRN IV PUSH 12/25/17 22:45 12/30/17 22:44 (Pepcid) 20 mg Q12HR PO 12/26/17 09:00 12/26/17 10:35 (Diflucan) 400 mg DAILY PO 12/26/17 09:00 12/26/17 10:40 (Neurontin) 200 mg TID PO 12/26/17 09:00 12/26/17 10:36 (SoluCORTEF INJ) 250 mg ONCE PRN IV PUSH 12/25/17 22:45 12/30/17 22:44 (Atarax) 50 mg TID PO 12/26/17 09:00 12/26/17 10:40 (Flagyl) 500 mg TID PO 12/26/17 09:00 12/26/17 10:36 (Pamelor) 25 mg HS PO 12/26/17 21:00 (Percocet 5-325 Mg) 1 tab Q4H PRN PO 12/25/17 22:45 12/26/17 09:13 (Inderal) 20 mg Q12HR PO 12/26/17 09:00 12/26/17 10:35 (risperDAL) 3 mg Q12HR PO 12/26/17 09:00 12/26/17 10:40 (Depakene) 500 mg Q8HR PO 12/26/17 06:00 12/26/17 07:56 Ceftriaxone Sodium 2000 mg/ Sodium Chloride 100 ml @ 200 mls/hr Q12HR IV 12/26/17 09:00 12/26/17 10:32 Social History Denies ETOH, Elicit drugs Smokes 1 day Physical Exam Vital Signs Vital Signs Date Time Temp Pulse Resp B/P (MAP) Pulse Ox O2 Delivery O2 Flow Rate FiO2 12/26/17 13:45 88 24 128/89 (102) 99 Room Air 12/26/17 10:43 20 12/26/17 10:29 98.5 108 22 136/91 (106) 93 Room Air 12/26/17 07:30 98.0 103 16 134/94 (107) 96 Room Air 12/26/17 04:00 99 16 129/87 (101) 95 Room Air 12/26/17 03:00 100 16 123/77 (92) 95 Room Air 12/26/17 02:00 105 16 165/97 (119) 97 Nasal Cannula 2.00 12/26/17 00:00 106 16 130/87 (101) 99 Nasal Cannula 2.00 12/25/17 23:00 107 16 135/92 (106) 98 Nasal Cannula 2.00 12/25/17 21:40 97.9 116 16 136/92 (107) 94 Room Air 12/25/17 20:12 121 15 95 12/25/17 18:22 100.4 130 18 128/98 (108) 98 Physical Exam GENERAL: This is thin male,in no apparent distress on stretcher SKIN: skin graft to right thigh, there are gloria, no drainage on dressing, no noted redness. HEAD: Atraumatic. Normocephalic. No temporal or scalp tenderness. EYES: Pupils equal round and reactive. Extraocular motions intact. No scleral icterus. No injection or drainage. ENT: Nose without bleeding, purulent drainage or septal hematoma. NECK: Trachea midline. No JVD or lymphadenopathy. CARDIOVASCULAR: Regular rate and rhythm without murmurs, gallops, or rubs. RESPIRATORY: Breath sounds equal bilaterally, scattered rhonchi. GASTROINTESTINAL: Abdomen soft, non-tender, nondistended w/ colostomy MUSCULOSKELETAL: Extremities without clubbing, cyanosis, or edema. NEUROLOGICAL: Awake and alert. Cranial nerves II through XII intact, normal speech Laboratory Laboratory Tests Test 12/25/17 20:25 12/25/17 20:55 12/25/17 22:35 12/26/17 04:49 White Blood Count 11.1 11.4 Red Blood Count 2.83 2.76 Hemoglobin 8.3 8.2 Hematocrit 24.4 24.1 Mean Corpuscular Volume 86.0 87.1 Mean Corpuscular Hemoglobin 29.2 29.6 Mean Corpuscular Hemoglobin Concent 33.9 34.0 Red Cell Distribution Width 19.3 19.5 Platelet Count 540 496 Mean Platelet Volume 7.2 6.8 Neutrophils (%) (Auto) 81.6 80.1 Lymphocytes (%) (Auto) 7.5 7.2 Monocytes (%) (Auto) 9.0 8.1 Eosinophils (%) (Auto) 1.5 3.4 Basophils (%) (Auto) 0.4 1.2 Neutrophils # (Auto) 9.0 9.1 Lymphocytes # (Auto) 0.8 0.8 Monocytes # (Auto) 1.0 0.9 Eosinophils # (Auto) 0.2 0.4 Basophils # (Auto) 0.0 0.1 CBC Comment DIFF FINAL DIFF FINAL Differential Comment Erythrocyte Sedimentation Rate 61 Prothrombin Time 12.8 Prothromb Time International Ratio 1.3 Activated Partial Thromboplast Time 30.3 Blood Urea Nitrogen 8 8 Creatinine 0.65 0.54 Random Glucose 114 123 Total Protein 7.3 6.5 Albumin 3.3 3.0 Calcium Level 10.0 9.1 Magnesium Level 1.6 Alkaline Phosphatase 53 46 Aspartate Amino Transf (AST/SGOT) 53 49 Alanine Aminotransferase (ALT/SGPT) 9 7 Total Bilirubin 0.2 0.2 Sodium Level 127 134 Potassium Level 4.3 3.8 Chloride Level 92 100 Carbon Dioxide Level 27.6 26.0 Anion Gap 7 8 Estimat Glomerular Filtration Rate 136 169 Lactic Acid Level 2.1 1.6 C-Reactive Protein 10.00 Urine Color YELLOW Urine Turbidity CLEAR Urine pH 6.0 Urine Specific [place] 1.005 Urine Protein NEG Urine Glucose (UA) NEG Urine Ketones NEG Urine Occult Blood NEG Urine Nitrite NEG Urine Bilirubin NEG Urine Urobilinogen LESS THAN 2.0 Urine Leukocyte Esterase NEG Urine WBC 1 Urine Bacteria RARE Microscopic Urinalysis Comment CULT NOT INDICATED Date/Time Source Procedure Growth Status 12/25/17 20:30 Blood Peripheral Aerobic Blood Culture - Preliminary NO GROWTH IN 1 DAY Resulted 12/25/17 20:30 Blood Peripheral Anaerobic Blood Culture - Preliminary NO GROWTH IN 1 DAY Resulted 12/25/17 20:10 Wound Leg Gram Stain Pending Received 12/25/17 20:10 Wound Leg Wound Culture Pending Received Result Diagram: 12/26/17 0449 12/26/17 0449 Imaging Last 24 hours Impressions Lower Extremity MRI 12/26/17 0000 Signed Impressions: Service Date/Time: Tuesday, December 26, 2017 08:44 - CONCLUSION: 1. The last image of the examination demonstrates a 0.6 x 1.3 cm fluid collection adjacent to the iliotibial band at essentially the level of the knee. There is some enhancement around this. This may simply represent some postoperative fluid tracking along the iliotibial band. In the appropriate clinical setting, I cannot exclude a small area of infection/abscess. This appears too small for drainage. 2. The vastus muscle group and rectus femoris muscles appear intact. I see no drainable fluid collection within them. José Antonio Ch MD Chest X-Ray 12/25/171953 Signed Impressions: Service Date/Time: Monday, December 25, 2017 21:56 - CONCLUSION: No infiltrates seen. MD Alisha Bush VTE Risk Assessment Caprini VTE Risk Assessment: No/Low Risk (score <= 1) Caprini Risk Assessment Model Point Value = 1 Point Value = 2 Point Value = 3 Point Value = 5 Age 41-60 Minor surgery BMI > 25 kg/m2 Swollen legs Varicose veins or History of unexplained or recurrent spontaneous Oral contraceptives or hormone replacement Sepsis (< 1 month) Serious lung disease, including pneumonia (< 1 month) Abnormal pulmonary function Acute myocardial infarction Congestive heart failure (< 1 month) History of inflammatory bowel disease Medical patient at bed rest Age 61-74 Arthroscopic surgery Major open surgery (> 45 min) Laparoscopic surgery (> 45 min) Malignancy Confined to bed (> 72 hours) Immobilizing plaster cast Central venous access Age >= 75 History of VTE Family history of VTE Factor V Leiden Prothrombin [id number] Lupus anticoagulant Anticardiolipin antibodies Elevated serum homocysteine Heparin-induced thrombocytopenia Other congenital or acquired thrombophilia Stroke (< 1 month) Elective arthroplasty Hip, pelvis, or leg fracture Acute spinal cord injury (< 1 month) Prophylaxis Regimen Total Risk Factor Score Risk Level Prophylaxis Regimen 0-1 Low Early ambulation 2 Moderate Order ONE of the following: *Sequential Compression Device (SCD) *Heparin 5000 units SQ BID 3-4 Higher Order ONE of the following medications: *Heparin 5000 units SQ TID *Enoxaparin/Lovenox 40 mg SQ daily (WT < 150 kg, CrCl > 30 mL/min) *Enoxaparin/Lovenox 30 mg SQ daily (WT < 150 kg, CrCl > 10-29 mL/min) *Enoxaparin/Lovenox 30 mg SQ BID (WT < 150 kg, CrCl > 30 mL/min) AND/OR *Sequential Compression Device (SCD) 5 or more Highest Order ONE of the following medications: *Heparin 5000 units SQ TID (Preferred with Epidurals) *Enoxaparin/Lovenox 40 mg SQ daily (WT < 150 kg, CrCl > 30 mL/min) *Enoxaparin/Lovenox 30 mg SQ daily (WT < 150 kg, CrCl > 10-29 mL/min) *Enoxaparin/Lovenox 30 mg SQ BID (WT < 150 kg, CrCl > 30 mL/min) AND *Sequential Compression Device (SCD) Assessment and Plan Problem List: (1) Sepsis ICD Codes: A41.9 - Sepsis, unspecified organism Status: Acute Plan: IVF, Vanco and Rocephin given in ED. ID consulted Follow ID recommendation. (2) Cellulitis and abscess of lower extremity ICD Codes: L03.119 - Cellulitis of unspecified part of limb; L02.419 - Cutaneous abscess of limb, unspecified Plan: S/P skin graft on 11/30. Ortho consulted will NPO after midnight for washing. wound care consult (3) Colorectal cancer ICD Codes: C19 - Malignant neoplasm of rectosigmoid junction Plan: Colostomy on 12/05/17. followed by oncology outpatient. (4) Schizoaffective disorder, bipolar type ICD Codes: F25.0 - Schizoaffective disorder, bipolar type Plan: Mood stable, cont home medication. Discharge Planning Home at D/C. Problem Qualifiers (1) Sepsis: Qualified Codes: A41.9 - Sepsis, unspecified organism Randi Villagran Dec 26, 2017 14:05
--- NOTE | 2017-12-26 18:28 | EKG ---
Date Performed: 12/25/2017 Time Performed: 20:29:48 PTAGE: 42 years EKG: SINUS TACHYCARDIA ABNORMAL RHYTHM ECG PREVIOUS TRACING : 12/19/2017 11.23 Since the prior tracing, there has been no significant valente DOCTOR: Sunshine Copeland Interpretating Date/Time 12/26/2017 18:26:37
[2017-12-26] MEDS: NORTRIPTYLINE HCL 25 MG CAP PO SCH (21:29)
[2017-12-27] MEDS ORDERED: POVIDONE IODINE 5% (ANTISEPSIS KIT) 4 APPLICATIONS EACH NARE PRN (03:00)
[2017-12-27] MEDS ORDERED: CHLORHEXIDINE GLUCONATE 2 % 1 PACK (2 CLOTHS) TOPICAL PRN (03:00)
[2017-12-27] MEDS ORDERED: SODIUM CHLORID 0.9% 500 ML IV PRN (03:00)
[2017-12-27] MEDS ORDERED: LACTATED RINGER'S 1000 ML IV PRN (03:00)
[2017-12-27 03:34] VITALS: BP 132/91; PULSE 96; RESP 16; TEMP 97.6; O2SAT 95
[2017-12-27] MEDS: VALPROIC ACID 250 MG CAP PO SCH ×3 (05:48→22:36)
[2017-12-27] MEDS: oxyCODONE/ACETAMINOPHEN 5 MG/325 MG TAB PO PRN ×2 (05:48→10:28)
--- NOTE | 2017-12-27 07:54 | PD.ORT.PN ---
Subjective Subjective Remarks s/p right thigh infection and skin grafting reports that picc line got pulled out. denies any pain in leg Objective Vitals Vital Signs Date Time Temp Pulse Resp B/P (MAP) Pulse Ox O2 Delivery O2 Flow Rate FiO2 12/27/17 03:34 97.6 96 16 132/91 (105) 95 12/26/17 23:51 97.5 92 20 118/75 (89) 95 12/26/17 20:34 98.3 98 20 138/85 (102) 96 12/26/17 16:29 97.6 92 18 135/87 (103) 98 12/26/17 14:58 98.0 89 19 114/89 (97) 99 12/26/17 14:55 16 12/26/17 13:45 88 24 128/89 (102) 99 Room Air 12/26/17 10:29 98.5 108 22 136/91 (106) 93 Room Air I/O 12/26/17 12/26/17 12/26/17 12/27/17 12/27/17 12/27/17 07:00 15:00 23:00 07:00 15:00 23:00 Intake Total 100 ml Output Total 300 ml Balance -300 ml 100 ml Intake IV Total 100 ml Output Urine Total 300 ml # Voids 2 1 Result Diagram: 12/26/179 12/26/179 Imaging Last 24 hours Impressions Chest X-Ray 12/25/171953 Signed Impressions: Service Date/Time: Monday, December 25, 2017 21:56 - CONCLUSION: No infiltrates seen. Jace Bird MD Objective Remarks RLE: skin graft appears clean and dry. healing well. area of superior apex of skin graft still not healed completely. minimal drainage. remaining incision clean and healed well. nvi. no fluctuance. no erythema. Assessment & Plan Assessment and Plan 1) Right leg skin graft s/p infection and washout -MRI reviewed. minimal fluid present on MRI. would plan for nonop treatment. not as concerned for infection at this time -resume diet -daily dressing changes to superior apex of skin graft with xeroform/ABD/tape -DC gloria and sutures from right leg -WBAT Gigi Rodríguez/First Laverne BOSS Dec 27, 2017 07:54
[2017-12-27 08:00] VITALS: BP 131/84; PULSE 101; RESP 16; TEMP 97.3; O2SAT 95
--- NOTE | 2017-12-27 08:52 | HHI.PR ---
Subjective Remarks Resting in bed denies any complaints. Objective Vital Signs Date Time Temp Pulse Resp B/P (MAP) Pulse Ox O2 Delivery O2 Flow Rate FiO2 12/27/17 08:00 97.3 101 16 131/84 (100) 95 12/27/17 03:34 97.6 96 16 132/91 (105) 95 12/26/17 23:51 97.5 92 20 118/75 (89) 95 12/26/17 20:34 98.3 98 20 138/85 (102) 96 12/26/17 16:29 97.6 92 18 135/87 (103) 98 12/26/17 14:58 98.0 89 19 114/89 (97) 99 12/26/17 14:55 16 12/26/17 13:45 88 24 128/89 (102) 99 Room Air 12/26/17 10:29 98.5 108 22 136/91 (106) 93 Room Air I/O 12/26/17 12/26/17 12/26/17 12/27/17 12/27/17 12/27/17 06:59 14:59 22:59 06:59 14:59 22:59 Intake Total 100 ml Output Total 300 ml Balance -300 ml 100 ml Intake IV Total 100 ml Output Urine Total 300 ml # Voids 2 1 Result Diagram: 12/26/17 0449 12/26/17 0449 Imaging Last 72 hours Impressions Lower Extremity MRI 12/26/17 0000 Signed Impressions: Service Date/Time: Tuesday, December 26, 2017 08:44 - CONCLUSION: 1. The last image of the examination demonstrates a 0.6 x 1.3 cm fluid collection adjacent to the iliotibial band at essentially the level of the knee. There is some enhancement around this. This may simply represent some postoperative fluid tracking along the iliotibial band. In the appropriate clinical setting, I cannot exclude a small area of infection/abscess. This appears too small for drainage. 2. The vastus muscle group and rectus femoris muscles appear intact. I see no drainable fluid collection within them. José Antonio Ch MD Chest X-Ray 12/25/171953 Signed Impressions: Service Date/Time: Monday, December 25, 2017 21:56 - CONCLUSION: No infiltrates seen. Jace Bird MD Other Results Physical Exam GENERAL: This is thin male,in no apparent distress SKIN: skin graft to right thigh clean no drainage HEAD: Atraumatic. Normocephalic. No temporal or scalp tenderness. EYES: Pupils equal round and reactive. Extraocular motions intact. No scleral icterus. No injection or drainage. ENT: Nose without bleeding, purulent drainage or septal hematoma. NECK: Trachea midline. No JVD or lymphadenopathy. CARDIOVASCULAR: Regular rate and rhythm without murmurs, gallops, or rubs. RESPIRATORY: Breath sounds equal bilaterally, scattered rhonchi. GASTROINTESTINAL: Abdomen soft, non-tender, nondistended w/ colostomy MUSCULOSKELETAL: Extremities without clubbing, cyanosis, or edema. NEUROLOGICAL: Awake and alert. Cranial nerves II through XII intact, normal speech Medications and IVs Current Medications Medications (Trade) Dose Ordered Sig/Mega Route Start Time Stop Time Status Last Admin (NS Flush) 2 ml UNSCH PRN IV FLUSH 12/25/17 22:45 (NS Flush) 2 ml BID IV FLUSH 12/26/17 09:00 12/26/17 21:30 (Zofran Inj) 4 mg Q6H PRN IVP 12/25/17 22:45 (Heparin Inj) 5,000 units Q12H SQ 12/26/17 09:00 12/26/17 21:31 (Narcan Inj) 0.4 mg UNSCH PRN IV PUSH 12/25/17 22:45 (Betty-Colace) 1 tab BID PO 12/26/17 09:00 (Milk Of Magnesia Liq) 30 ml Q12H PRN PO 12/25/17 22:45 (Senokot) 17.2 mg Q12H PRN PO 12/25/17 22:45 (Dulcolax Supp) 10 mg DAILY PRN RECTAL 12/25/17 22:45 (Lactulose Liq) 30 ml DAILY PRN PO 12/25/17 22:45 (Xanax) 0.5 mg Q8H PRN PO 12/25/17 22:45 12/26/17 09:12 (Abilify) 5 mg DAILY PO 12/26/17 09:00 12/26/17 10:36 (Adrenalin (1:1000) Inj) 0.3 mg ONCE PRN IV PUSH 12/25/17 22:45 12/30/17 22:44 (Pepcid) 20 mg Q12HR PO 12/26/17 09:00 12/26/17 21:28 (Diflucan) 400 mg DAILY PO 12/26/17 09:00 12/26/17 10:40 (Neurontin) 200 mg TID PO 12/26/17 09:00 12/26/17 17:54 (SoluCORTEF INJ) 250 mg ONCE PRN IV PUSH 12/25/17 22:45 12/30/17 22:44 (Atarax) 50 mg TID PO 12/26/17 09:00 12/26/17 17:54 (Flagyl) 500 mg TID PO 12/26/17 09:00 12/26/17 17:54 (Pamelor) 25 mg HS PO 12/26/17 21:00 12/26/17 21:29 (Percocet 5-325 Mg) 1 tab Q4H PRN PO 12/25/17 22:45 12/27/17 05:48 (Inderal) 20 mg Q12HR PO 12/26/17 09:00 12/26/17 21:29 (risperDAL) 3 mg Q12HR PO 12/26/17 09:00 12/26/17 21:30 (Depakene) 500 mg Q8HR PO 12/26/17 06:00 12/27/17 05:48 Ceftriaxone Sodium 2000 mg/ Sodium Chloride 100 ml @ 200 mls/hr Q12HR IV 12/26/17 09:00 12/26/17 21:30 Lactated Ringer's 1,000 ml @ 30 mls/hr Q24H PRN IV 12/27/17 03:00 12/30/17 02:59 Sodium Chloride 500 ml @ 30 mls/hr [id number] PRN IV 12/27/17 03:00 12/30/17 02:59 (Betadine 5% Antisepsis Kit) 1 applic SENIOR INFRASTRUCTURE ENGINEER PRN EACH NARE 12/27/17 03:00 12/30/17 02:59 (Chlorhexidine 2% Cloth) 3 pack SENIOR INFRASTRUCTURE ENGINEER PRN TOPICAL 12/27/17 03:00 12/30/17 02:59 Assessment and Plan Problem List: (1) Sepsis ICD Codes: A41.9 - Sepsis, unspecified organism Status: Acute Plan: Resolved, Afebrile, WBC wnl. Cont w/ Ceftriaxone, follow ID recommendations. (2) Cellulitis and abscess of lower extremity ICD Codes: L03.119 - Cellulitis of unspecified part of limb; L02.419 - Cutaneous abscess of limb, unspecified Plan: S/P skin graft on 11/30. Ortho decided not to do washing, order to remove gloria. (3) Colorectal cancer ICD Codes: C19 - Malignant neoplasm of rectosigmoid junction Plan: Colostomy on 12/05/17. followed by oncology outpatient. Will eventually need chemo/radiation. (4) Schizoaffective disorder, bipolar type ICD Codes: F25.0 - Schizoaffective disorder, bipolar type Plan: Mood stable, cont home medication. Assessment and Plan 12/27/17 Seen at bedside, ID in room as well. He is to continue on IV antibiotics until end of month. ID suggest maybe pot placement for IV antibiotics, she will discuss with Hem/Onc. Patient has been seen in our office once, he is at risk for non compliance, due to no insurance and, following up at office due to payment issues. Office has provide discounted visit, but this appears to be a financial burden. Problem Qualifiers (1) Sepsis: Qualified Codes: A41.9 - Sepsis, unspecified organism Randi Villagran Dec 27, 2017 08:52
[2017-12-27 09:12] LABS: AUTOMATED NEUTROPHIL # 8.6 TH/MM3 (1.8-7.7); BASOPHIL # 0.1 TH/MM3 (0-0.2); EOSINOPHIL # 0.2 TH/MM3 (0-0.4); EOSINOPHIL % 2.2 % (0.0-4.0); HEMATOCRIT 23.9 % (39.0-51.0); HEMOGLOBIN 8.4 GM/DL (13.0-17.0); LYMPH % 6.3 % (9.0-44.0); LYMPHOCYTE # 0.6 TH/MM3 (1.0-4.8); MEAN CELL VOLUME 86.7 FL (80.0-100.0); MEAN CORPUSCULAR HEMOGLOBIN 30.3 PG (27.0-34.0); MEAN PLATELET VOLUME 6.9 FL (7.0-11.0); MONO % 7.3 % (0.0-8.0); MONOCYTE # 0.8 TH/MM3 (0-0.9); NEUT % 83.2 % (16.0-70.0); PLATELET COUNT 554 TH/MM3 (150-450); RED BLOOD COUNT 2.76 MIL/MM3 (4.50-5.90); RED CELL DISTRIBUTION WIDTH 19.2 % (11.6-17.2); WHITE BLOOD COUNT 10.3 TH/MM3 (4.0-11.0)
[2017-12-27] MEDS: cefTRIAXone 2,000 MG/NS 100 ML IV SCH ×4 (09:27→22:35)
[2017-12-27] MEDS: PROPRANOLOL HCL 20 MG TAB PO SCH ×2 (09:28→22:35)
[2017-12-27] MEDS: DOCUSATE SODIUM 50 MG/SENNA 8.6 MG TAB PO SCH ×2 (09:28→22:36)
[2017-12-27] MEDS: SODIUM CHLORIDE 0.9% FLUSH 10 ML FLUSH IV FLUSH SCH ×2 (09:28→22:34)
[2017-12-27] MEDS: GABAPENTIN 100 MG CAP PO SCH ×3 (09:28→17:46)
[2017-12-27] MEDS: risperiDONE 3 MG TAB PO SCH ×2 (09:28→22:36)
[2017-12-27] MEDS: metroNIDAZOLE 500 MG TAB PO SCH ×3 (09:28→17:47)
[2017-12-27] MEDS: HEPARIN SODIUM - SQ 10,000 UNITS/ML VIAL SQ SCH ×2 (09:28→22:37)
[2017-12-27] MEDS: FAMOTIDINE 20 MG TAB PO SCH ×2 (09:28→22:36)
[2017-12-27 09:29] LABS: BICARBONATE 22.5 MEQ/L (21.0-32.0); CALCIUM 9.4 MG/DL (8.5-10.1); CREATININE 0.55 MG/DL (0.60-1.30)
[2017-12-27] MEDS: hydrOXYzine HCL 50 MG TAB PO SCH ×3 (10:26→17:47)
[2017-12-27] MEDS: ARIPiprazole 5 MG TAB PO SCH (10:26)
[2017-12-27] MEDS: FLUCONAZOLE 200 MG TAB PO SCH (10:26)
--- NOTE | 2017-12-27 10:39 | PD.ID.CON ---
History of Present Illness Service ID Consult Requested By Reason for Consult Evaluation and Mment of Sacral osteomyelitis, Right knee osteomyelitis and Right knee septic arthritis. Primary Care Physician Black Sanchez, DO Diagnoses: History of Present Illness is a 41 y/o CM with PMHx of Schizoaffective disorder on Haldol IM injections in bilateral buttocks. The patient was diagnosed with fecal impaction and severe constipation was seen by escrow agent in July but did not get a Colonoscopy per Mom last admission. Patient reports that he was on a bowel regimen to help with her constipation and that has been a challenge to maintain continence. Patient has had incontinence of stool and intermittently incontinence of urine since July. With this background patient presents to the emergency department last admission for evaluation of difficulty walking, generalized weakness, weight loss loss of appetite. Patient was seen by general surgery and ortho, neurosurgery during last admission. General surgery performed multiple pelvic washouts. Fluid appeared to be tracking into thigh so ortho was involved and underwent multiple I&Ds of thigh and knee for septic arthritis. Patient was evaluated by GI and underwent Colonoscopy and was found to have a rectal cancer invading local tissues. was involved and patient underwent partial colectomy with diverting colostomy. Patient was evaluated by Hemo Onc Dr.Ruby Webber and chemotherapy was deferred until infection under control. Patient was also seen by Radiation Oncology dept and again radiation was deferred till ID process under control as radiation would lead to local tissue destruction thereby affecting local availability of antibiotics to effectively treat the infectious process. Just prior to discharge he underwent a skin flap placement. MRI repeated showed fluid collection which was determined by ortho to be post op in nature. Patient was discharged home recently with a PICC line (Ceftriaxone bid dose, flagyl oral and diflucan oral). Reportedly patient pulled his PICC line out. Details of circumstances not known. Will dw patients Mother. ID consulted for evaluation and Mment of possible sepsis, ongoing treatment of sacral osteomyelitis, right femur osteomyelitis and right knee septic arthritis. Review of Systems ROS Limitations: Poor Historian Past Family Social History Allergies: Coded Allergies: diphenhydramine (Verified Adverse Reaction, Unknown, 12/25/17) Past Medical History Sacral osteomyelitis Right femur osteomyelitis Right knee septic arthritis. Neuropathy involving the right leg h/o marsh right foot dorsum as a child. Schizoaffective disorder used to receive haldol IM injections. Depression Anxiety Past Surgical History Multiple I&D of abscesses in pelvic and thigh region, knee wash out by ortho last admission EGD Colonoscopy with Rectal invasive cancer Diverting colostomy with partial colectomy. Reported Medications Reported Meds & Active Scripts Active Nortriptyline (Nortriptyline HCl) 25 Mg Cap 25 Mg PO HS Depakene (Valproic Acid) 250 Mg Cap 500 Mg PO Q8HR Aripiprazole 5 Mg Tab 5 Mg PO DAILY Risperdal M-Tab (Risperidone) 3 Mg Tab 3 Mg PO Q12HR Famotidine 20 Mg Tab 20 Mg PO Q12HR Diflucan (Fluconazole) 200 Mg Tab 400 Mg PO DAILY 14 Days Flagyl (Metronidazole) 500 Mg Tab 500 Mg PO TID 14 Days Epinephrine Inj 1 Mg/Ml (1 Ml) Inj 0.3 Mg SQ ONCE PRN Give with any signs of respiratory distress. Epinephrine Inj 1 Mg/Ml (1 Ml) Inj 0.3 Mg IV PUSH ONCE PRN Solu-Cortef Inj (Hydrocortisone Sodium Succinate) 250 Mg/2 Ml Inj 250 Mg IV PUSH ONCE PRN Give over 30-60 seconds. Ceftriaxone Inj (Ceftriaxone Sodium) 2 Gram Inj 2 Gm IV Q12HR 25 Days Xanax (Alprazolam) 0.5 Mg Tab 0.5 Mg PO Q8H PRN Gabapentin 100 Mg Cap 200 Mg PO TID Oxycodone-Acetaminophen 5-325 (Oxycodone HCl/Acetaminophen) 5 Mg-325 Mg Tablet 1 Tab PO Q4H PRN Reported Depakote ER (Divalproex Sodium) 500 Mg Billie 500 Mg PO TID 500mg in am; 1,000 mg HS Risperdal (Risperidone) 3 Mg Tab 3 Mg PO Q12HR Hydroxyzine HCl 50 Mg Tab 50 Mg PO TID Propranolol (Propranolol HCl) 20 Mg Tab 20 Mg PO Q12HR Active Ordered Medications Current Medications Medications (Trade) Dose Ordered Sig/Mega Route Start Time Stop Time Status Last Admin (NS Flush) 2 ml UNSCH PRN IV FLUSH 12/25/17 22:45 (NS Flush) 2 ml BID IV FLUSH 12/26/17 09:00 12/27/17 09:28 (Zofran Inj) 4 mg Q6H PRN IVP 12/25/17 22:45 (Heparin Inj) 5,000 units Q12H SQ 12/26/17 09:00 12/27/17 09:28 (Narcan Inj) 0.4 mg UNSCH PRN IV PUSH 12/25/17 22:45 (Betty-Colace) 1 tab BID PO 12/26/17 09:00 (Milk Of Magnesia Liq) 30 ml Q12H PRN PO 12/25/17 22:45 (Senokot) 17.2 mg Q12H PRN PO 12/25/17 22:45 (Dulcolax Supp) 10 mg DAILY PRN RECTAL 12/25/17 22:45 (Lactulose Liq) 30 ml DAILY PRN PO 12/25/17 22:45 (Xanax) 0.5 mg Q8H PRN PO 12/25/17 22:45 12/26/17 09:12 (Abilify) 5 mg DAILY PO 12/26/17 09:00 12/27/17 10:26 (Adrenalin (1:1000) Inj) 0.3 mg ONCE PRN IV PUSH 12/25/17 22:45 12/30/17 22:44 (Pepcid) 20 mg Q12HR PO 12/26/17 09:00 12/27/17 09:28 (Diflucan) 400 mg DAILY PO 12/26/17 09:00 12/27/17 10:26 (Neurontin) 200 mg TID PO 12/26/17 09:00 12/27/17 17:46 (SoluCORTEF INJ) 250 mg ONCE PRN IV PUSH 12/25/17 22:45 12/30/17 22:44 (Atarax) 50 mg TID PO 12/26/17 09:00 12/27/17 17:47 (Flagyl) 500 mg TID PO 12/26/17 09:00 12/27/17 17:47 (Pamelor) 25 mg HS PO 12/26/17 21:00 12/26/17 21:29 (Inderal) 20 mg Q12HR PO 12/26/17 09:00 12/27/17 09:28 (risperDAL) 3 mg Q12HR PO 12/26/17 09:00 12/27/17 09:28 (Depakene) 500 mg Q8HR PO 12/26/17 06:00 12/27/17 15:01 Ceftriaxone Sodium 2000 mg/ Sodium Chloride 100 ml @ 200 mls/hr Q12HR IV 12/26/17 09:00 12/27/17 09:27 Lactated Ringer's 1,000 ml @ 30 mls/hr Q24H PRN IV 12/27/17 03:00 12/30/17 02:59 Sodium Chloride 500 ml @ 30 mls/hr [id number] PRN IV 12/27/17 03:00 12/30/17 02:59 (Betadine 5% Antisepsis Kit) 1 applic SEATING AND MOBILITY TECHNOLOGIST PRN EACH NARE 12/27/17 03:00 12/30/17 02:59 (Chlorhexidine 2% Cloth) 3 pack SEATING AND MOBILITY TECHNOLOGIST PRN TOPICAL 12/27/17 03:00 12/30/17 02:59 (Motrin) 600 mg Q6H PRN PO 12/27/17 15:30 12/27/17 17:47 Family History reviewed and NC to current ID problems Social History Reviewed. Lives with Mother. Physical Exam Vital Signs Vital Signs Date Time Temp Pulse Resp B/P (MAP) Pulse Ox O2 Delivery O2 Flow Rate FiO2 12/27/17 08:00 97.3 101 16 131/84 (100) 95 12/27/17 03:34 97.6 96 16 132/91 (105) 95 12/26/17 23:51 97.5 92 20 118/75 (89) 95 12/26/17 20:34 98.3 98 20 138/85 (102) 96 12/26/17 16:29 97.6 92 18 135/87 (103) 98 12/26/17 14:58 98.0 89 19 114/89 (97) 99 12/26/17 14:55 16 12/26/17 13:45 88 24 128/89 (102) 99 Room Air Physical Exam GENERAL: This is a well-nourished, well-developed patient, in no apparent distress. SKIN: No rashes, ecchymoses or lesions. Cool and dry. HEAD: Atraumatic. Normocephalic. No temporal or scalp tenderness. EYES: Pupils equal round and reactive. Extraocular motions intact. No scleral icterus. No injection or drainage. ENT: Nose without bleeding, purulent drainage or septal hematoma. Throat without erythema, tonsillar hypertrophy or exudate. Uvula midline. Airway patent. NECK: Trachea midline. Supple, nontender, no meningeal signs. CARDIOVASCULAR: HS audible. RESPIRATORY: Clear to auscultation. Breath sounds equal bilaterally. No wheezes , rales, or rhonchi. GASTROINTESTINAL: Abdomen soft, non-tender, nondistended. Ostomy site ok with liquid stool in bag. MUSCULOSKELETAL: Right thigh skin flap site with no e.o infection. Surgical site with no e.o infection. NEUROLOGICAL: Awake and alert. Nonfocal Psych cooperative IV line sites with no e.o infection. Laboratory Laboratory Tests Test 12/27/17 08:44 White Blood Count 10.3 Red Blood Count 2.76 Hemoglobin 8.4 Hematocrit 23.9 Mean Corpuscular Volume 86.7 Mean Corpuscular Hemoglobin 30.3 Mean Corpuscular Hemoglobin Concent 35.0 Red Cell Distribution Width 19.2 Platelet Count 554 Mean Platelet Volume 6.9 Neutrophils (%) (Auto) 83.2 Lymphocytes (%) (Auto) 6.3 Monocytes (%) (Auto) 7.3 Eosinophils (%) (Auto) 2.2 Basophils (%) (Auto) 1.0 Neutrophils # (Auto) 8.6 Lymphocytes # (Auto) 0.6 Monocytes # (Auto) 0.8 Eosinophils # (Auto) 0.2 Basophils # (Auto) 0.1 CBC Comment DIFF FINAL Differential Comment Blood Urea Nitrogen 6 Creatinine 0.55 Random Glucose 96 Calcium Level 9.4 Sodium Level 136 Potassium Level 3.7 Chloride Level 101 Carbon Dioxide Level 22.5 Anion Gap 13 Estimat Glomerular Filtration Rate 165 Date/Time Source Procedure Growth Status 12/25/17 20:30 Blood Peripheral Aerobic Blood Culture - Preliminary NO GROWTH IN 1 DAY Resulted 12/25/17 20:30 Blood Peripheral Anaerobic Blood Culture - Preliminary NO GROWTH IN 1 DAY Resulted 12/26/17 16:45 Wound Leg Gram Stain - Final Resulted 12/26/17 16:45 Wound Leg Wound Culture Pending Resulted Result Diagram: 12/27/1784312/27/1744 Imaging Last Impressions Lower Extremity MRI 12/26/17 0000 Signed Impressions: Service Date/Time: Tuesday, December 26, 2017 08:44 - CONCLUSION: 1. The last image of the examination demonstrates a 0.6 x 1.3 cm fluid collection adjacent to the iliotibial band at essentially the level of the knee. There is some enhancement around this. This may simply represent some postoperative fluid tracking along the iliotibial band. In the appropriate clinical setting, I cannot exclude a small area of infection/abscess. This appears too small for drainage. 2. The vastus muscle group and rectus femoris muscles appear intact. I see no drainable fluid collection within them. José Antonio Ch MD Chest X-Ray 12/25/171953 Signed Impressions: Service Date/Time: Monday, December 25, 2017 21:56 - CONCLUSION: No infiltrates seen. Jace Bird MD Assessment and Plan Assessment and Plan Possible sepsis on admission (elevated lactic acid, low grade fever and leucocytosis) PICC was in place ? PICC infection. Reportedly patient pulled it out by mistake. Sacral osteomyelitis Right femur osteomyelitis Right knee septic arthritis. Recs: Continue Ceftriaxone IV q12hrs Continue Diflucan oral Continue Flagyl oral Follow cultures. Follow clinically. syd Graham: ok to place port although not needed for chemotherapy. Patient will be on oral chemo agent. Discussed with her the issue with PICC being pulled out by patient. Follow blood cultures in view of possible sepsis on admission. ID will clear patient for port when reviewed with mother and also after blood cultures negative at 72 hours. NO PICC or PORT till cleared by ID for above reasons. Will dw Mom in am. 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 Needs PCP arranged for outpatient. dw case management syd RN syd patient. María Upton MD Dec 27, 2017 10:39
[2017-12-27 12:00] VITALS: BP 133/87; PULSE 93; RESP 16; TEMP 98.3; O2SAT 98
[2017-12-27 16:00] VITALS: BP 128/85; PULSE 88; RESP 16; TEMP 98; O2SAT 97
[2017-12-27] MEDS: IBUPROFEN 600 MG TAB PO PRN (17:47)
[2017-12-27 19:26] VITALS: BP 130/81; PULSE 100; RESP 20; TEMP 98.2; O2SAT 98
[2017-12-27] MEDS: NORTRIPTYLINE HCL 25 MG CAP PO SCH (22:36)
[2017-12-28 00:31] VITALS: BP 129/87; PULSE 84; RESP 20; TEMP 97.9; O2SAT 99
[2017-12-28 04:06] VITALS: BP 130/90; PULSE 81; RESP 16; TEMP 97.6; O2SAT 100
[2017-12-28] MEDS: IBUPROFEN 600 MG TAB PO PRN ×3 (05:58→23:07)
[2017-12-28] MEDS: VALPROIC ACID 250 MG CAP PO SCH ×3 (05:58→21:24)
--- NOTE | 2017-12-28 07:58 | HHI.PR ---
Subjective Remarks uneventful night, no complaints. Objective Vital Signs Date Time Temp Pulse Resp B/P (MAP) Pulse Ox O2 Delivery O2 Flow Rate FiO2 12/28/17 04:06 97.6 81 16 130/90 (103) 100 12/28/17 00:31 97.9 84 20 129/87 (101) 99 12/27/17 19:26 98.2 100 20 130/81 (97) 98 12/27/17 16:00 98.0 88 16 128/85 (99) 97 12/27/17 12:00 98.3 93 16 133/87 (102) 98 12/27/17 08:00 97.3 101 16 131/84 (100) 95 I/O 12/27/17 12/27/17 12/27/17 12/28/17 12/28/17 12/28/17 07:00 15:00 23:00 07:00 15:00 23:00 Intake Total 100 ml Output Total 500 ml 700 ml Balance 100 ml -500 ml -700 ml Intake IV Total 100 ml Output Urine Total 500 ml 700 ml Result Diagram: 12/27/17 0844 12/27/17 0844 Imaging Last 72 hours Impressions Lower Extremity MRI 12/26/17 0000 Signed Impressions: Service Date/Time: Tuesday, December 26, 2017 08:44 - CONCLUSION: 1. The last image of the examination demonstrates a 0.6 x 1.3 cm fluid collection adjacent to the iliotibial band at essentially the level of the knee. There is some enhancement around this. This may simply represent some postoperative fluid tracking along the iliotibial band. In the appropriate clinical setting, I cannot exclude a small area of infection/abscess. This appears too small for drainage. 2. The vastus muscle group and rectus femoris muscles appear intact. I see no drainable fluid collection within them. José Antonio Ch MD Chest X-Ray 12/25/171953 Signed Impressions: Service Date/Time: Monday, December 25, 2017 21:56 - CONCLUSION: No infiltrates seen. Jace Bird MD Other Results GENERAL: This is thin male,in no apparent distress SKIN: skin graft to right thigh no drainage on dressing, no noted redness. HEAD: Atraumatic. Normocephalic. No temporal or scalp tenderness. EYES: Pupils equal round and reactive. ENT: Nose without bleeding, purulent drainage or septal hematoma. NECK: Trachea midline. No JVD or lymphadenopathy. CARDIOVASCULAR: Regular rate and rhythm without murmurs, gallops, or rubs. RESPIRATORY: Breath sounds equal bilaterally GASTROINTESTINAL: Abdomen soft, non-tender, nondistended w/ colostomy MUSCULOSKELETAL: Extremities without clubbing, cyanosis, or edema. NEUROLOGICAL: Awake and alert. Cranial nerves II through XII intact, normal speech Laboratory Medications and IVs Current Medications Medications (Trade) Dose Ordered Sig/Mega Route Start Time Stop Time Status Last Admin (NS Flush) 2 ml UNSCH PRN IV FLUSH 12/25/17 22:45 (NS Flush) 2 ml BID IV FLUSH 12/26/17 09:00 12/27/17 22:34 (Zofran Inj) 4 mg Q6H PRN IVP 12/25/17 22:45 (Heparin Inj) 5,000 units Q12H SQ 12/26/17 09:00 12/27/17 22:37 (Narcan Inj) 0.4 mg UNSCH PRN IV PUSH 12/25/17 22:45 (Betty-Colace) 1 tab BID PO 12/26/17 09:00 12/27/17 22:36 (Milk Of Magnesia Liq) 30 ml Q12H PRN PO 12/25/17 22:45 (Senokot) 17.2 mg Q12H PRN PO 12/25/17 22:45 (Dulcolax Supp) 10 mg DAILY PRN RECTAL 12/25/17 22:45 (Lactulose Liq) 30 ml DAILY PRN PO 12/25/17 22:45 (Xanax) 0.5 mg Q8H PRN PO 12/25/17 22:45 12/26/17 09:12 (Abilify) 5 mg DAILY PO 12/26/17 09:00 12/27/17 10:26 (Adrenalin (1:1000) Inj) 0.3 mg ONCE PRN IV PUSH 12/25/17 22:45 12/30/17 22:44 (Pepcid) 20 mg Q12HR PO 12/26/17 09:00 12/27/17 22:36 (Diflucan) 400 mg DAILY PO 12/26/17 09:00 12/27/17 10:26 (Neurontin) 200 mg TID PO 12/26/17 09:00 12/27/17 17:46 (SoluCORTEF INJ) 250 mg ONCE PRN IV PUSH 12/25/17 22:45 12/30/17 22:44 (Atarax) 50 mg TID PO 12/26/17 09:00 12/27/17 17:47 (Flagyl) 500 mg TID PO 12/26/17 09:00 12/27/17 17:47 (Pamelor) 25 mg HS PO 12/26/17 21:00 12/27/17 22:36 (Inderal) 20 mg Q12HR PO 12/26/17 09:00 12/27/17 22:35 (risperDAL) 3 mg Q12HR PO 12/26/17 09:00 12/27/17 22:36 (Depakene) 500 mg Q8HR PO 12/26/17 06:00 12/28/17 05:58 Ceftriaxone Sodium 2000 mg/ Sodium Chloride 100 ml @ 200 mls/hr Q12HR IV 12/26/17 09:00 12/27/17 22:35 Lactated Ringer's 1,000 ml @ 30 mls/hr Q24H PRN IV 12/27/17 03:00 12/30/17 02:59 Sodium Chloride 500 ml @ 30 mls/hr [id number] PRN IV 12/27/17 03:00 12/30/17 02:59 (Betadine 5% Antisepsis Kit) 1 applic HEAVY EQUIPMENT RENTAL ASSOCIATE PRN EACH NARE 12/27/17 03:00 12/30/17 02:59 (Chlorhexidine 2% Cloth) 3 pack HEAVY EQUIPMENT RENTAL ASSOCIATE PRN TOPICAL 12/27/17 03:00 12/30/17 02:59 (Motrin) 600 mg Q6H PRN PO 12/27/17 15:30 12/28/17 05:58 Assessment and Plan Problem List: (1) Sepsis ICD Codes: A41.9 - Sepsis, unspecified organism Status: Acute Plan: Resolved, Afebrile, WBC wnl. Cont w/ Ceftriaxone, Flagyl, Diflucan follow ID recommendations BC negative 48hours (2) Cellulitis and abscess of lower extremity ICD Codes: L03.119 - Cellulitis of unspecified part of limb; L02.419 - Cutaneous abscess of limb, unspecified Plan: S/P skin graft on 11/30. gloria out, no redness or drainage (3) Colorectal cancer ICD Codes: C19 - Malignant neoplasm of rectosigmoid junction Plan: Colostomy on 12/05/17. followed by oncology outpatient. Will eventually need chemo/radiation. (4) Schizoaffective disorder, bipolar type ICD Codes: F25.0 - Schizoaffective disorder, bipolar type Plan: Mood stable, cont home medication. Assessment and Plan 12/27/17 Seen at bedside, ID in room as well. He is to continue on IV antibiotics until end of month. ID suggest maybe pot placement for IV antibiotics, she will discuss with Hem/Onc. Patient has been seen in our office once, he is at risk for non compliance, due to no insurance and, following up at office due to payment issues. Office has provide discounted visit, but this appears to be a financial burden. 12/28/17- Voices night uneventful. Blood cultures negative thus far. Afebrile. ID to discuss port placement with mother. Problem Qualifiers (1) Sepsis: Qualified Codes: A41.9 - Sepsis, unspecified organism Randi Villagran Dec 28, 2017 07:58
[2017-12-28 08:02] VITALS: BP 144/100; PULSE 88; RESP 18; TEMP 97.8; O2SAT 96
[2017-12-28 08:10] LABS: BASOPHIL # 0.1 TH/MM3 (0-0.2); BASOPHIL % 0.7 % (0.0-2.0); EOSINOPHIL # 0.3 TH/MM3 (0-0.4); EOSINOPHIL % 3.8 % (0.0-4.0); HEMATOCRIT 23.1 % (39.0-51.0); HEMOGLOBIN 7.9 GM/DL (13.0-17.0); LYMPH % 8.5 % (9.0-44.0); LYMPHOCYTE # 0.7 TH/MM3 (1.0-4.8); MEAN CELL VOLUME 86.8 FL (80.0-100.0); MEAN CORPUSCULAR HEMOGLOBIN 29.7 PG (27.0-34.0); MEAN CORPUSCULAR HGB CONC 34.2 % (32.0-36.0); MONO % 8.4 % (0.0-8.0); MONOCYTE # 0.7 TH/MM3 (0-0.9); NEUT % 78.6 % (16.0-70.0); PLATELET COUNT 521 TH/MM3 (150-450); RED BLOOD COUNT 2.67 MIL/MM3 (4.50-5.90); RED CELL DISTRIBUTION WIDTH 19.8 % (11.6-17.2); WHITE BLOOD COUNT 8.9 TH/MM3 (4.0-11.0)
[2017-12-28] MEDS: GABAPENTIN 100 MG CAP PO SCH ×3 (08:33→18:08)
[2017-12-28] MEDS: ARIPiprazole 5 MG TAB PO SCH (08:33)
[2017-12-28] MEDS: FAMOTIDINE 20 MG TAB PO SCH ×2 (08:33→21:00)
[2017-12-28] MEDS: risperiDONE 3 MG TAB PO SCH ×2 (08:34→21:00)
[2017-12-28] MEDS: PROPRANOLOL HCL 20 MG TAB PO SCH ×2 (08:34→21:00)
[2017-12-28] MEDS: metroNIDAZOLE 500 MG TAB PO SCH ×3 (08:34→18:08)
[2017-12-28] MEDS: FLUCONAZOLE 200 MG TAB PO SCH (08:34)
[2017-12-28] MEDS: DOCUSATE SODIUM 50 MG/SENNA 8.6 MG TAB PO SCH ×2 (08:35→21:00)
[2017-12-28] MEDS: HEPARIN SODIUM - SQ 10,000 UNITS/ML VIAL SQ SCH ×2 (08:35→21:00)
[2017-12-28] MEDS: cefTRIAXone 2,000 MG/NS 100 ML IV SCH ×4 (08:35→21:23)
[2017-12-28] MEDS: SODIUM CHLORIDE 0.9% FLUSH 10 ML FLUSH IV FLUSH SCH ×2 (08:37→21:23)
[2017-12-28] MEDS: hydrOXYzine HCL 50 MG TAB PO SCH ×3 (08:40→18:09)
[2017-12-28 08:46] LABS: BICARBONATE 24.9 MEQ/L (21.0-32.0); CREATININE 0.58 MG/DL (0.60-1.30)
[2017-12-28 13:06] VITALS: BP 132/88; PULSE 89; RESP 18; TEMP 98.5; O2SAT 100
--- NOTE | 2017-12-28 14:40 | RADRPT ---
EXAM DATE/TIME: 12/28/2017 13:32 [facility] COMPARISON: No previous studies available for comparison. INDICATIONS : Right arm pain. Patient recently pulled IV line. MEDICAL HISTORY : Asthma. Schizophrenia. Bipolar disorder. Anxiety. Claustrophobia. Colon and Rectal cancer. SURGICAL HISTORY : Colostomy. I&D to right thigh, skin grafting. ENCOUNTER: Initial ACUITY: 1 day PAIN SCORE: 2/10 LOCATION: Right Arm. FINDINGS: There is occlusive thrombus in the mid to central right basilic vein. There is spontaneous flow docum ented in the brachial, cephalic, axillary, and subclavian veins. These vessels are compressible and augmentation response is documented. No filling defects are seen. The flow is phasic with respirati on. Direction of flow in the jugular vein is caudal. CONCLUSION: 1. Mid to central right basilic vein DVT. Ric Garber MD on December 28, 2017 at 14:36 Board Certified Radiologist. This report was verified electronically.
[2017-12-28 16:37] VITALS: BP 124/85; PULSE 88; RESP 18; TEMP 97.9; O2SAT 100
[2017-12-28] MEDS ORDERED: SODIUM CHLORIDE 0.9% FLUSH 10 ML FLUSH IV FLUSH PRN (17:00)
--- NOTE | 2017-12-28 17:17 | RADRPT ---
EXAM DATE/TIME: 12/28/2017 16:46 [facility] COMPARISON: CHEST SINGLE AP, December 25, 2017, 21:56. INDICATIONS : PICC line placement. MEDICAL HISTORY : None. SURGICAL HISTORY : Colostomy. ENCOUNTER: Subsequent ACUITY: 4 - 6 days PAIN SCORE: Non-responsive. LOCATION: Bilateral chest FINDINGS: A single view of the chest demonstrates the lungs to be symmetrically aerated without evidence of mas s, infiltrate or effusion. The cardiomediastinal contours are unremarkable. Osseous structures are intact. The PICC catheter is in excellent position. CONCLUSION: 1. No acute cardiopulmonary findings. The lungs are clear. José Antonio Ch MD on December 28, 2017 at 17:13 Board Certified Radiologist. This report was verified electronically.
--- NOTE | 2017-12-28 19:07 | HHI.IDPN ---
Subjective Subjective Remarks Mr Price is a 41 y/o pleasant CM with Schizoaffective disorder. ID following for evaluation and Mment of possible sepsis, ongoing treatment of sacral osteomyelitis, right femur osteomyelitis and right knee septic arthritis. Patient also diagnosed with Rectal cancer and is awaiting completion of treatment of infectious process to start Chemo and Radiation therapy. Overnight events reviewed No fevers No rash No diarrhea Antibiotics Rocephin IV Flagyl oral Diflucan oral. Lines Line sites with no e.o infection Past Medical History reviewed Allergies: Coded Allergies: diphenhydramine (Verified Adverse Reaction, Unknown, 12/25/17) Objective . Vital Signs Date Time Temp Pulse Resp B/P (MAP) Pulse Ox O2 Delivery O2 Flow Rate FiO2 12/28/17 16:37 97.9 88 18 124/85 (98) 100 12/28/17 13:06 98.5 89 18 132/88 (103) 100 12/28/17 08:02 97.8 88 18 144/100 (115) 96 12/28/17 04:06 97.6 81 16 130/90 (103) 100 12/28/17 00:31 97.9 84 20 129/87 (101) 99 12/27/17 19:26 98.2 100 20 130/81 (97) 98 . Laboratory Tests Test 12/27/17 08:44 12/28/17 07:04 White Blood Count 10.3 TH/MM3 8.9 TH/MM3 Red Blood Count 2.76 MIL/MM3 2.67 MIL/MM3 Hemoglobin 8.4 GM/DL 7.9 GM/DL Hematocrit 23.9 % 23.1 % Mean Corpuscular Volume 86.7 FL 86.8 FL Mean Corpuscular Hemoglobin 30.3 PG 29.7 PG Mean Corpuscular Hemoglobin Concent 35.0 % 34.2 % Red Cell Distribution Width 19.2 % 19.8 % Platelet Count 554 TH/MM3 521 TH/MM3 Mean Platelet Volume 6.9 FL 7.0 FL Neutrophils (%) (Auto) 83.2 % 78.6 % Lymphocytes (%) (Auto) 6.3 % 8.5 % Monocytes (%) (Auto) 7.3 % 8.4 % Eosinophils (%) (Auto) 2.2 % 3.8 % Basophils (%) (Auto) 1.0 % 0.7 % Neutrophils # (Auto) 8.6 TH/MM3 7.0 TH/MM3 Lymphocytes # (Auto) 0.6 TH/MM3 0.7 TH/MM3 Monocytes # (Auto) 0.8 TH/MM3 0.7 TH/MM3 Eosinophils # (Auto) 0.2 TH/MM3 0.3 TH/MM3 Basophils # (Auto) 0.1 TH/MM3 0.1 TH/MM3 CBC Comment DIFF FINAL DIFF FINAL Differential Comment Laboratory Tests Test 12/27/17 08:44 12/28/17 07:04 Blood Urea Nitrogen 6 MG/DL 7 MG/DL Creatinine 0.55 MG/DL 0.58 MG/DL Random Glucose 96 MG/DL 112 MG/DL Calcium Level 9.4 MG/DL 9.0 MG/DL Sodium Level 136 MEQ/L 137 MEQ/L Potassium Level 3.7 MEQ/L 3.9 MEQ/L Chloride Level 101 MEQ/L 102 MEQ/L Carbon Dioxide Level 22.5 MEQ/L 24.9 MEQ/L Anion Gap 13 MEQ/L 10 MEQ/L Estimat Glomerular Filtration Rate 165 ML/MIN 155 ML/MIN Microbiology Date/Time Source Procedure Growth Status 12/25/17 20:30 Blood Peripheral Aerobic Blood Culture - Preliminary NO GROWTH IN 3 DAYS Resulted 12/25/17 20:30 Blood Peripheral Anaerobic Blood Culture - Preliminary NO GROWTH IN 3 DAYS Resulted 12/25/17 20:20 Blood Peripheral Aerobic Blood Culture - Preliminary NO GROWTH IN 3 DAYS Resulted 12/25/17 20:20 Blood Peripheral Anaerobic Blood Culture - Preliminary NO GROWTH IN 3 DAYS Resulted 12/26/17 16:45 Wound Leg Gram Stain - Final Resulted 12/26/17 16:45 Wound Leg Wound Culture - Preliminary HEAVY GROWTH NORMAL SKIN MARY AT 24HRS Resulted Imaging Last Impressions Upper Extremity Ultrasound 12/28/17 0000 Signed Impressions: Service Date/Time: Thursday, December 28, 2017 13:32 - CONCLUSION: 1. Mid to central right basilic vein DVT. Ric Garber MD Chest X-Ray 12/28/17 0000 Signed Impressions: Service Date/Time: Thursday, December 28, 2017 16:46 - CONCLUSION: 1. No acute cardiopulmonary findings. The lungs are clear. José Antonio Ch MD Lower Extremity MRI 12/26/17 0000 Signed Impressions: Service Date/Time: Tuesday, December 26, 2017 08:44 - CONCLUSION: 1. The last image of the examination demonstrates a 0.6 x 1.3 cm fluid collection adjacent to the iliotibial band at essentially the level of the knee. There is some enhancement around this. This may simply represent some postoperative fluid tracking along the iliotibial band. In the appropriate clinical setting, I cannot exclude a small area of infection/abscess. This appears too small for drainage. 2. The vastus muscle group and rectus femoris muscles appear intact. I see no drainable fluid collection within them. José Antonio Ch MD Physical Exam GENERAL: This is a well-nourished, well-developed patient, in no apparent distress. SKIN: No rashes, ecchymoses or lesions. Cool and dry. HEAD: Atraumatic. Normocephalic. No temporal or scalp tenderness. EYES: Pupils equal round and reactive. Extraocular motions intact. No scleral icterus. No injection or drainage. ENT: Nose without bleeding, purulent drainage or septal hematoma. Throat without erythema, tonsillar hypertrophy or exudate. Uvula midline. Airway patent. NECK: Trachea midline. Supple, nontender, no meningeal signs. CARDIOVASCULAR: HS audible. RESPIRATORY: Clear to auscultation. Breath sounds equal bilaterally. No wheezes , rales, or rhonchi. GASTROINTESTINAL: Abdomen soft, non-tender, nondistended. Ostomy site ok with liquid stool in bag. MUSCULOSKELETAL: Right thigh skin flap site with no e.o infection. Surgical site with no e.o infection. NEUROLOGICAL: Awake and alert. Nonfocal Psych cooperative IV line sites with no e.o infection. Assessment & Plan Remarks Possible sepsis on admission (elevated lactic acid, low grade fever and leucocytosis) PICC was in place ? PICC infection. Reportedly patient pulled it out by mistake. Sacral osteomyelitis Right femur osteomyelitis Right knee septic arthritis. Recs: Continue Ceftriaxone IV q12hrs Continue Diflucan oral Continue Flagyl oral Follow cultures. Follow clinically. syd Mom: she is ok with PICC line. Reports to me the Midline was not removed by patient but rather at time of home health RN visit. syd case management. Post hospital infusion orders in chart. syd RN syd patient. Will sign off please call back if any change in clinical condition or questions. María Upton MD Dec 28, 2017 19:07
[2017-12-28 20:09] VITALS: BP 142/97; PULSE 82; RESP 20; TEMP 98.7; O2SAT 97
--- NOTE | 2017-12-28 20:33 | HHI.FF ---
Infusion Therapy Location of Infusion Therapy: Home Health Care IV Infusion Order Patient Information Appointment Date: Dec 28, 2017 Patient Weight 65 kg Diagnosis: Diagnosis Sacral osteomyelitis Right femur osteomyelitis and abscess Right knee effusion likely septic Coded Allergies: diphenhydramine (Verified Adverse Reaction, Unknown, 12/25/17) Administer Medication Ceftriaxone 2 grams IV q 12 hours Start Treatment: Dec 28, 2017 Stop Treatment: Jan 14, 2018 Additional Information Venous access: PICC Line Additional Instructions [x] Peripheral flush and dressing changes per protocol [x] Implanted port and central power line lineman: * Implanted port: 10 ml Normal Saline followed by 5 ml Heparin 100 units/ml Heparin flush after each use and monthly to maintain. [] May leave port accessed during therapy. [] May leave peripheral site accessed for duration of therapy. [x] If patient has SOB or respiratory distress, check oxygen saturation. If less than 90% or clinical signs of respiratory distress, administer oxygen at 2 L/min. via nasal cannula and notify physician. [x] Anaphylaxis/Reaction orders: * Stop infusion. * Keep IV line open with saline flush. * Notify physician. * Monitor vital signs every 15 minutes until symptoms resolve. * Check Oxygen saturation; Oxygen at 2 L/min. via nasal cannula if less than 90% or clinical signs of respiratory distress. * Administer diphenhydramine (Benadryl) 25 mg IV STAT, (unless patient has received as pre-med). May repeat once, if necessary. * Solu-Cortef 250 mg IVP over 30-60 seconds, use 100 mg vials for each dissolution. * Epinephrine (1mg/1 ml) 0.3 mg subcutaneously or IVP now with any signs of respiratory distress. * Check with physician for new additional pre-med orders if patient is re- challenged or re-treated. [x] May remove PICC line when treatment complete, after confirming with Physician. [x] If the patient is admitted to the hospital, the ED, or transferred via [facility] , complete transfer form including medication reconciliation order sheet. Laboratory Tests Weekly Labs: CBC w/diff, Creatinine, CRP, LFT's (Hepatic function test) Additional Information Please draw weekly labs. Fax lab results weekly to number below and Call with abnormal labs or change in clinical condition or problems to: or covering ID Physician Follow up appt: Follow up with PCP Follow up with other MDs as planned. Counseling: Counseled about medication side effects Counseled about PICC line care and hand hygiene. María Upton MD Dec 28, 2017 20:33
[2017-12-28] MEDS ORDERED: DIFL200T PO (20:37)
[2017-12-28] MEDS ORDERED: METR-1 PO (20:37)
[2017-12-28] MEDS: NORTRIPTYLINE HCL 25 MG CAP PO SCH (21:00)
[2017-12-29 00:37] VITALS: BP 122/88; PULSE 88; RESP 16; TEMP 97.9; O2SAT 99
[2017-12-29 04:16] VITALS: BP 142/96; PULSE 92; RESP 20; TEMP 97.7; O2SAT 95
[2017-12-29 05:48] LABS: AUTOMATED NEUTROPHIL # 7.6 TH/MM3 (1.8-7.7); BASOPHIL # 0.1 TH/MM3 (0-0.2); BASOPHIL % 0.9 % (0.0-2.0); EOSINOPHIL # 0.3 TH/MM3 (0-0.4); EOSINOPHIL % 2.8 % (0.0-4.0); HEMATOCRIT 23.6 % (39.0-51.0); HEMOGLOBIN 8.2 GM/DL (13.0-17.0); LYMPH % 7.8 % (9.0-44.0); LYMPHOCYTE # 0.8 TH/MM3 (1.0-4.8); MEAN CELL VOLUME 85.7 FL (80.0-100.0); MEAN CORPUSCULAR HEMOGLOBIN 29.6 PG (27.0-34.0); MEAN CORPUSCULAR HGB CONC 34.5 % (32.0-36.0); MONO % 9.6 % (0.0-8.0); MONOCYTE # 0.9 TH/MM3 (0-0.9); NEUT % 78.9 % (16.0-70.0); PLATELET COUNT 542 TH/MM3 (150-450); RED BLOOD COUNT 2.76 MIL/MM3 (4.50-5.90); RED CELL DISTRIBUTION WIDTH 20.2 % (11.6-17.2); WHITE BLOOD COUNT 9.6 TH/MM3 (4.0-11.0)
[2017-12-29] MEDS: VALPROIC ACID 250 MG CAP PO SCH ×2 (06:17→14:24)
[2017-12-29 06:23] LABS: CALCIUM 9.1 MG/DL (8.5-10.1); CREATININE 0.68 MG/DL (0.60-1.30)
[2017-12-29 07:53] VITALS: BP 123/93; PULSE 96; RESP 18; TEMP 97.7; O2SAT 100
[2017-12-29] MEDS ORDERED: SODIUM CHLORIDE 0.9% FLUSH 10 ML FLUSH IV FLUSH SCH (09:00)
--- NOTE | 2017-12-29 09:29 | HHI.DS ---
Discharge Summary Admission Date Dec 25, 2017 at 22:33 Admitting Diagnosis CELLULITIS/ABSCESS Brief History Patient is a 42-year-old male presenting to the emergency department to have midline replaced.He has been on Iv antibiotics, administered by his mom for R thigh abscess. He was just D/C on 12/19 after 6 weeks of being hospital. He was found to have rectal carcinoma, w/ colostomy done on 12/05 and had multiple ID done to Right pelvis and hip with skin graft done to R thigh on 11/30. In er he was tachycardic with temp 100.4, lactic acid elevated at 2.1. He was given 3 liters of IVF, Rocephin and Vancomycin. CBC/BMP: 12/29/17 0519 12/29/17 0519 Significant Findings Laboratory Tests Test 12/27/17 08:44 12/28/17 07:04 12/29/17 05:19 Red Blood Count 2.76 MIL/MM3 (4.50-5.90) 2.67 MIL/MM3 (4.50-5.90) 2.76 MIL/MM3 (4.50-5.90) Hemoglobin 8.4 GM/DL (13.0-17.0) 7.9 GM/DL (13.0-17.0) 8.2 GM/DL (13.0-17.0) Hematocrit 23.9 % (39.0-51.0) 23.1 % (39.0-51.0) 23.6 % (39.0-51.0) Red Cell Distribution Width 19.2 % (11.6-17.2) 19.8 % (11.6-17.2) 20.2 % (11.6-17.2) Platelet Count 554 TH/MM3 (150-450) 521 TH/MM3 (150-450) 542 TH/MM3 (150-450) Mean Platelet Volume 6.9 FL (7.0-11.0) Neutrophils (%) (Auto) 83.2 % (16.0-70.0) 78.6 % (16.0-70.0) 78.9 % (16.0-70.0) Lymphocytes (%) (Auto) 6.3 % (9.0-44.0) 8.5 % (9.0-44.0) 7.8 % (9.0-44.0) Neutrophils # (Auto) 8.6 TH/MM3 (1.8-7.7) Lymphocytes # (Auto) 0.6 TH/MM3 (1.0-4.8) 0.7 TH/MM3 (1.0-4.8) 0.8 TH/MM3 (1.0-4.8) Blood Urea Nitrogen 6 MG/DL (7-18) Creatinine 0.55 MG/DL (0.60-1.30) 0.58 MG/DL (0.60-1.30) Monocytes (%) (Auto) 8.4 % (0.0-8.0) 9.6 % (0.0-8.0) Random Glucose 112 MG/DL (74-106) 113 MG/DL (74-106) Hospital Course Seen by [place], MRI of RLE show minimal fluid present with nonoperative treatment. Ortho not concerned for infection at this time. [place] were removed. Blood cultures remain negative through stay. Picc placed on 12/28/17. He will continue with IV Ceftriaxone Q12 until 01/14/18. He will follow up with [facility]. VSS, afebrile at DC - Pt Condition on Discharge: Good Discharge Disposition: Discharge Home Discharge Instructions DIET: Follow Instructions for: As Tolerated, No Restrictions Activities you can perform: Regular-No Restrictions Follow up Referrals: Oncology - 1 Week @ [phone] with Cris Cerna Ruby PCP Follow-up - 1 Month @ [phone] with [facility] Arranged By Dr. Upton Continued Medications: Alprazolam (Xanax) 0.5 Mg Tab 0.5 MG PO Q8H PRN for anxiety, #10 TAB Aripiprazole (Aripiprazole) 5 Mg Tab 5 MG PO DAILY for Control Seizures, #30 TAB Ceftriaxone Inj (Ceftriaxone Inj) 2 Gram Inj 2 GM IV Q12HR for Infection for 25 Days, VIAL 0 Refills Divalproex ER (Depakote ER) 500 Mg Billie 500 MG PO TID for Control Seizures, #60 TAB 0 Refills 500mg in am; 1,000 mg HS Epinephrine Inj (Epinephrine Inj) 1 Mg/Ml (1 Ml) Inj 0.3 MG IV PUSH ONCE PRN for ALLERGIC REACTION, #1 VIAL Epinephrine Inj (Epinephrine Inj) 1 Mg/Ml (1 Ml) Inj 0.3 MG SQ ONCE PRN for ALLERGIC REACTION, #1 VIAL Give with any signs of respiratory distress. Famotidine (Famotidine) 20 Mg Tab 20 MG PO Q12HR for Manage Heartburn, #60 TAB Fluconazole (Diflucan) 200 Mg Tab 400 MG PO DAILY for Infection for 14 Days, #28 TAB 0 Refills (This prescription has been renewed) Gabapentin (Gabapentin) 100 Mg Cap 200 MG PO TID for Pain Management, #30 CAP Hydrocortisone Inj (Solu-Cortef Inj) 250 Mg/2 Ml Inj 250 MG IV PUSH ONCE PRN for ALLERGIC REACTION, #1 VIAL 0 Refills Give over 30-60 seconds. Hydroxyzine HCl (Hydroxyzine HCl) 50 Mg Tab 50 MG PO TID, TAB 0 Refills Metronidazole (Flagyl) 500 Mg Tab 500 MG PO TID for Infection for 14 Days, TAB 0 Refills (This prescription has been renewed) Nortriptyline (Nortriptyline) 25 Mg Cap 25 MG PO HS for Pain Management, #30 CAP Oxycodone HCl/Acetaminophen (Oxycodone-Acetaminophen 5-325) 5 Mg-325 Mg Tablet 1 TAB PO Q4H PRN for PAIN SCALE 3 TO 6, #20 TAB Propranolol (Propranolol) 20 Mg Tab 20 MG PO Q12HR, #60 TAB 0 Refills Risperidone (Risperdal) 3 Mg Tab 3 MG PO Q12HR, #60 TAB 0 Refills Risperidone Odt (Risperdal M-Tab) 3 Mg Tab 3 MG PO Q12HR for Control Anxiety, #20 TAB Valproic Acid (Depakene) 250 Mg Cap 500 MG PO Q8HR for Control Seizures, #90 CAP Randi Villagran Dec 29, 2017 09:29
[2017-12-29] MEDS: cefTRIAXone 2,000 MG/NS 100 ML IV SCH ×2 (09:56)
[2017-12-29] MEDS: metroNIDAZOLE 500 MG TAB PO SCH ×2 (09:57→14:24)
[2017-12-29] MEDS: risperiDONE 3 MG TAB PO SCH (09:57)
[2017-12-29] MEDS: FLUCONAZOLE 200 MG TAB PO SCH (09:57)
[2017-12-29] MEDS: PROPRANOLOL HCL 20 MG TAB PO SCH (09:57)
[2017-12-29] MEDS: GABAPENTIN 100 MG CAP PO SCH ×2 (09:57→14:25)
[2017-12-29] MEDS: ARIPiprazole 5 MG TAB PO SCH (09:57)
[2017-12-29] MEDS: FAMOTIDINE 20 MG TAB PO SCH (09:58)
[2017-12-29] MEDS: SODIUM CHLORIDE 0.9% FLUSH 10 ML FLUSH IV FLUSH SCH (09:59)
[2017-12-29] MEDS: DOCUSATE SODIUM 50 MG/SENNA 8.6 MG TAB PO SCH (10:04)
[2017-12-29] MEDS: hydrOXYzine HCL 50 MG TAB PO SCH ×2 (13:00→14:41)
[2017-12-29 13:06] VITALS: BP 142/88; PULSE 63; RESP 18; TEMP 98.6; O2SAT 97
[2017-12-29] MEDS ORDERED: EPIN1INJ21 IV PUSH (13:23)
[2017-12-29] MEDS ORDERED: HYDR50TA94 PO (13:23)
[2017-12-29] MEDS ORDERED: VALP250 PO (13:23)
[2017-12-29] MEDS ORDERED: RISPM3 PO (13:23)
[2017-12-29] MEDS ORDERED: FAMO20TA2 PO (13:23)
[2017-12-29] MEDS ORDERED: PROP20TA3 PO (13:23)
[2017-12-29] MEDS ORDERED: GABA100C4 PO (13:23)
[2017-12-29] MEDS ORDERED: DEPA500T3 PO (13:23)
[2017-12-29] MEDS ORDERED: ARIP1TAB11 PO (13:23)
[2017-12-29] MEDS: HEPARIN SODIUM - SQ 10,000 UNITS/ML VIAL SQ SCH (15:08)
[2017-12-29 16:08] VITALS: BP 117/88; PULSE 99; RESP 18; TEMP 98.6; O2SAT 98
== END 2017-12-29 18:20 | disposition home or self-care (01) | DRG 872 ==
LOC: NEPC 18:13 → NEDA 22:33 → NEDH 12-26 06:10 → NEPFCDU 12-26 15:14
PROVIDERS: ADMIT Family Medicine; ATTEND Family Medicine
PROC: 05HY33Z Insertion of Infusion Device into Upper Vein, Percutaneous Approach (ICD-10-PCS; principal; 2017-12-28)
PROC: B54NZZA Ultrasonography of Left Upper Extremity Veins, Guidance (ICD-10-PCS; 2017-12-28)
DX: A41.9 Sepsis, unspecified organism (principal); F25.0 Schizoaffective disorder, bipolar type; C19 Malignant neoplasm of rectosigmoid junction; L02.415 Cutaneous abscess of right lower limb; M46.28 Osteomyelitis of vertebra, sacral and sacrococcygeal region; M86.8X8 Other osteomyelitis, other site; Z93.3 Colostomy status; F17.210 Nicotine dependence, cigarettes, uncomplicated
CPT/HCPCS: 36569; 71045; 73720; 76937; 80048; 80053; 81001; 82948; 83605; 83735; 85025; 85610; 85652; 85730; 86140; 87040; 87070; 87205; 93005; 93971; 96365; 96375; A9579; J0696; J1642; J1644; J3370; J7030; J7050

== ENCOUNTER 2018-03-14 16:54 | Inpatient (IN) | payer OTHER ==
[~2018-03-14] VITALS: Ht 177.8 cm; Wt 54.6 kg
[2018-03-14 17:10] VITALS: BP 115/70; PULSE 106; RESP 20; TEMP 97.1; O2SAT 90
[2018-03-14 17:31] VITALS: BP 123/70; PULSE 98; RESP 18; O2SAT 94
[2018-03-14] MEDS ORDERED: METOCLOPRAMIDE HCL 10 MG/2 ML VIAL IV PUSH ONE (17:45)
[2018-03-14] MEDS ORDERED: MORPHINE SULFATE 4 MG/ML INJ IV PUSH ONE (17:45)
[2018-03-14] MEDS ORDERED: SODIUM CHLOR 0.9% 1000 ML INJ 1,000 ML IV ONE ×2 (17:45)
[2018-03-14] MEDS ORDERED: DILA2TAB4 PO (17:48)
[2018-03-14] MEDS ORDERED: MS C15TA7 PO (17:48)
[2018-03-14] MEDS ORDERED: OXYC1TAB36 PO (17:48)
--- NOTE | 2018-03-14 17:52 | PD ---
HPI Chief Complaint: Abnormal Results Time Seen by Provider: 17:20 Travel History International Travel<30 days: No Contact w/Intl Traveler<30days: No Traveled to known affect area: No History of Present Illness HPI 42-year-old male presents to the emergency department his mother for evaluation of generalized weakness, elevated WBC count. Patient has rectal carcinoma with metastases. He is being treated by Dr. Webber, Dr. Savage is his radiation physician. He had a colostomy placed by Dr. Torres. Patient reports chronic leg pain. He is on Dilaudid and Percocet at home for pain. Patient denies any alcohol use or illicit drug use. He does use tobacco products. He denies shortness of breath or chest pain. He reports chronic abdominal pain. No fevers or chills according to his mother. Patient's mother states that he recently had a Chaidez catheter placed on Tuesday. He did have some hematuria, but no longer has any hematuria. Patient also has history of schizoaffective disorder, bipolar type. He has a chronic sacral decubitus ulcer. He has a small wound to the right upper leg where he previously had a skin graft. He also has a small wound to the right heel which mother states is healing well. Moderate severity. PFSH Past Medical History Asthma: Yes (PROVENTIL INHALER) Blood Disorders: No Bipolar Disorder: Yes Anxiety: Yes Depression: No Cancer: Yes (COLON AND RECTAL) Cardiovascular Problems: No Chemotherapy: Yes (STARTED 12/2017) COPD: No Diabetes: No Diminished Hearing: No Endocrine: No Gastrointestinal Disorders: Yes (rectal mass - COLOSTOMY) Genitourinary: No Immune Disorder: No Musculoskeletal: No Neurologic: No Psychiatric: Yes Reproductive: No Respiratory: Yes Radiation Therapy: Yes Schizophrenia: Yes Sleep Apnea: No Thyroid Disease: No ?: Not Past Surgical History Abdominal Surgery: Yes (colostomy) Other Surgery: Yes (I&D to right thigh, skin grafting.) Social History Alcohol Use: No Tobacco Use: Yes (one pack per day) Substance Use: No Allergies-Medications (Allergen,Severity, Reaction): Coded Allergies: diphenhydramine (Verified Adverse Reaction, Unknown, 03/14/18) Reported Meds & Prescriptions Reported Meds & Active Scripts Active Depakene (Valproic Acid) 250 Mg Cap 500 Mg PO Q8HR Aripiprazole 5 Mg Tab 5 Mg PO DAILY Risperdal M-Tab (Risperidone) 3 Mg Tab 3 Mg PO Q12HR Famotidine 20 Mg Tab 20 Mg PO Q12HR Gabapentin 100 Mg Cap 200 Mg PO TID Hydroxyzine HCl 50 Mg Tab 50 Mg PO TID MDD 150 30 Days Propranolol (Propranolol HCl) 20 Mg Tab 20 Mg PO Q12HR Diflucan (Fluconazole) 200 Mg Tab 400 Mg PO DAILY 14 Days Nortriptyline (Nortriptyline HCl) 25 Mg Cap 25 Mg PO HS Xanax (Alprazolam) 0.5 Mg Tab 0.5 Mg PO Q8H PRN Reported Dilaudid (Hydromorphone HCl) 2 Mg Tab 2 Mg PO Q8H PRN Oxycodone-Acetaminophen 10-325 mg Tab 1 Tab PO Q6H PRN Ms Contin (Morphine Sulfate) 15 Mg Tab 15 Mg PO BID Review of Systems Except as stated in HPI: all other systems reviewed are Neg Physical Exam Narrative GENERAL: Chronically ill, thin appearing male patient, afebrile. SKIN: Focused skin assessment warm/dry. Patient had a 3 cm x 4 cm sacral decubitus ulcer. There is no surrounding erythema or drainage at this time. He also has a small wound to the right upper thigh without evidence of acute infection. HEAD: Normocephalic. Atraumatic. EYES: No scleral icterus. No injection or drainage. NECK: Supple, trachea midline. No JVD or lymphadenopathy. CARDIOVASCULAR: Regular rhythm without murmurs, gallops, or rubs. Patient is slightly tachycardic. RESPIRATORY: Breath sounds equal bilaterally. No accessory muscle use. Lung sounds with rhonchi throughout. GASTROINTESTINAL: Abdomen soft, non-tender, nondistended. Patient has colostomy noted to left abdomen. Chaidez catheter is in place with clear yellow urine. MUSCULOSKELETAL: No cyanosis, or edema. BACK: Nontender without obvious deformity. No CVA tenderness. Data Data Last Documented VS Vital Signs Date Time Temp Pulse Resp B/P (MAP) Pulse Ox O2 Delivery O2 Flow Rate FiO2 03/14/18 18:56 95 14 113/69 (84) 95 Room Air 03/14/18 17:10 97.1 Orders Orders Sepsis Workup Initiated (03/14/18 ) Complete Blood Count With Diff (03/14/18 17:43) Comprehensive Metabolic Panel (03/14/18 17:43) Prothrombin Time / Inr (Pt) (03/14/18 17:43) Act Partial Throm Time (Ptt) (03/14/18 17:43) Lactic Acid Sepsis Protocol (03/14/18 17:43) Magnesium (Mg) (03/14/18 17:43) Urinalysis - C+S If Indicated (03/14/18 17:43) Blood Culture (03/14/18 17:43) Chest, Single Ap (03/14/18 17:43) Blood Glucose (03/14/18 17:43) Ecg Monitoring (03/14/18 17:43) Iv Access Insert/Monitor (03/14/18 17:43) Oximetry (03/14/18 17:43) Oxygen Administration (03/14/18 17:43) Sodium Chlor 0.9% 1000 Ml Inj (Ns 1000 M (03/14/18 17:45) Sodium Chlor 0.9% 1000 Ml Inj (Ns 1000 M (03/14/18 17:45) Morphine Inj (Morphine Inj) (03/14/18 17:45) Metoclopramide Inj (Reglan Inj) (03/14/18 17:45) Ct Pulmonary Angiogram (03/14/18 ) Urine Culture (03/14/18 18:37) Cefepime Inj (Maxipime Inj) (03/14/18 19:10) Iohexol 350 Inj (Omnipaque 350 Inj) (03/14/18 20:24) Azithromycin Inj (Zithromax Inj) (03/14/18 20:45) Admit Order (Ed Use Only) (03/14/18 20:52) Labs Laboratory Tests Test 03/14/18 17:51 03/14/18 17:57 03/14/18 18:37 White Blood Count 16.4 TH/MM3 Red Blood Count 2.75 MIL/MM3 Hemoglobin 8.3 GM/DL Hematocrit 25.3 % Mean Corpuscular Volume 92.0 FL Mean Corpuscular Hemoglobin 30.1 PG Mean Corpuscular Hemoglobin Concent 32.7 % Red Cell Distribution Width 20.4 % Platelet Count 408 TH/MM3 Mean Platelet Volume 7.3 FL Neutrophils (%) (Auto) 85.8 % Lymphocytes (%) (Auto) 5.0 % Monocytes (%) (Auto) 8.8 % Eosinophils (%) (Auto) 0.1 % Basophils (%) (Auto) 0.3 % Neutrophils # (Auto) 14.1 TH/MM3 Lymphocytes # (Auto) 0.8 TH/MM3 Monocytes # (Auto) 1.4 TH/MM3 Eosinophils # (Auto) 0.0 TH/MM3 Basophils # (Auto) 0.0 TH/MM3 CBC Comment DIFF FINAL Differential Comment Prothrombin Time 11.8 SEC Prothromb Time International Ratio 1.2 RATIO Activated Partial Thromboplast Time 29.3 SEC Blood Urea Nitrogen 13 MG/DL Creatinine 0.78 MG/DL Random Glucose 102 MG/DL Total Protein 7.1 GM/DL Albumin 2.0 GM/DL Calcium Level 10.5 MG/DL Magnesium Level 2.1 MG/DL Alkaline Phosphatase 69 U/L Aspartate Amino Transf (AST/SGOT) 79 U/L Alanine Aminotransferase (ALT/SGPT) 12 U/L Total Bilirubin 0.2 MG/DL Sodium Level 132 MEQ/L Potassium Level 4.2 MEQ/L Chloride Level 93 MEQ/L Carbon Dioxide Level 32.3 MEQ/L Anion Gap 7 MEQ/L Estimat Glomerular Filtration Rate 110 ML/MIN Lactic Acid Level 2.3 mmol/L Urine Color YELLOW Urine Turbidity HAZY Urine pH 6.5 Urine Specific [place] 1.012 Urine Protein 100 mg/dL Urine Glucose (UA) NEG mg/dL Urine Ketones NEG mg/dL Urine Occult Blood MOD Urine Nitrite NEG Urine Bilirubin NEG Urine Urobilinogen LESS THAN 2.0 MG/DL Urine Leukocyte Esterase LARGE Urine RBC 18 /hpf Urine WBC 87 /hpf Urine Squamous Epithelial Cells 1 /hpf Urine Bacteria OCC /hpf Urine Mucus FEW /lpf Microscopic Urinalysis Comment CATH-CULTURE IND MDM Medical Decision Making Medical Screen Exam Complete: Yes Emergency Medical Condition: Yes Medical Record Reviewed: Yes Interpretation(s) Last Impressions Chest X-Ray 03/14/18 1743 Signed Impressions: CONCLUSION: Hyperinflation otherwise negative. CT Angiography 03/14/18 0000 Signed Impressions: CONCLUSION: 1. Probable airspace disease right lower lobe consistent with an inflammatory process. 2. Large gallstone Differential Diagnosis Pneumonia versus UTI versus sepsis versus dehydration versus electrolyte abnormality Narrative Course 42-year-old male presents to the emergency department sent by Dr. Webber for elevated white count. He is currently undergoing treatment for colorectal cancer with metastases. He appears chronically ill, thin. CBC, CMP, PTT, PT/ INR, lactic acid, magnesium, UA, blood cultures 2, chest x-ray are ordered and pending. Patient is given normal saline 2 L IV bolus, morphine 4 mg IV, Reglan 10 mg IV. CBC shows leukocytosis of 16.4. CMP shows no acute abnormalities. Lactic acid is 2.3. Magnesium is 2.1. Coags shows no acute abnormalities. UA shows large leukocyte esterase, 87 WBC, occasional bacteria. Patient is started on Cefepime. Chest x-ray shows hypoinflation. CT pulmonary angiogram is ordered and shows Probable airspace disease right lower lobe consistent with an inflammatory process; Large gallstone. Azithromycin is added on. Dr. Sanchez, patient's primary care physician is paged for admission. I spoke to Dr. Daniel Bryan's [employer], who accepted admission. Sepsis Criteria SIRS Criteria (2 or more): Heart rate over 90, WBC > 22212, < 4000 or > 10% bands Sepsis Criteria (SIRS+source): Infect source susp/known Severe Sepsis (+one): Lactate >2 Diagnosis Primary Impression: Pneumonia Qualified Codes: J18.1 - Lobar pneumonia, unspecified organism Additional Impressions: UTI (urinary tract infection) Qualified Codes: N30.01 - Acute cystitis with hematuria Sepsis Qualified Codes: A41.9 - Sepsis, unspecified organism Colorectal cancer Admitting Information Admitting Physician Requests: Admit Sera Granados March 14, 2018 17:51
[2018-03-14 18:32] LABS: LACTIC ACID SEPSIS PROTOCOL 2.3 mmol/L (0.4-2.0)
--- NOTE | 2018-03-14 18:34 | RADRPT ---
EXAM DATE: 03/14/2018 6:19 PM EDT AGE/SEX: 42 years / Male INDICATIONS: Weakness. Congestion. CLINICAL DATA: This is the patient's initial encounter. Patient reports that signs and symptoms have been present for 3 days and indicates a pain score of 5/10. MEDICAL/SURGICAL HISTORY: None. None. COMPARISON: [facility] [place], CHEST SINGLE AP, 12/28/2017. . FINDINGS: The lungs are moderately hyperinflated. Cardiac silhouette is small. No pneumothorax. No evidence of consolidation. No pleural effusion. The portion of the bony skeleton visualized is unremarkable. CONCLUSION: Hyperinflation otherwise negative. Electronically signed by: Rodrick Ch MD 03/14/2018 6:33 PM EDT
[2018-03-14 18:38] LABS: INTERNATIONAL NORMALIZED RATIO 1.2 RATIO; PROTHROMBIN TIME - PATIENT 11.8 SEC (9.8-11.6)
[2018-03-14 18:39] LABS: AST (GOT) 79 U/L (15-37); AUTOMATED NEUTROPHIL # 14.1 TH/MM3 (1.8-7.7); BASOPHIL % 0.3 % (0.0-2.0); BICARBONATE 32.3 MEQ/L (21.0-32.0); BLOOD UREA NITROGEN 13 MG/DL (7-18); CALCIUM 10.5 MG/DL (8.5-10.1); CHLORIDE 93 MEQ/L (98-107); CREATININE 0.78 MG/DL (0.60-1.30); EOSINOPHIL % 0.1 % (0.0-4.0); GLOMERULAR FILTRATION RATE 110 ML/MIN (>89); GLUCOSE,RANDOM 102 MG/DL (74-106); HEMATOCRIT 25.3 % (39.0-51.0); HEMOGLOBIN 8.3 GM/DL (13.0-17.0); LYMPHOCYTE # 0.8 TH/MM3 (1.0-4.8); MAGNESIUM 2.1 MG/DL (1.5-2.5); MEAN CORPUSCULAR HEMOGLOBIN 30.1 PG (27.0-34.0); MEAN CORPUSCULAR HGB CONC 32.7 % (32.0-36.0); MEAN PLATELET VOLUME 7.3 FL (7.0-11.0); MONO % 8.8 % (0.0-8.0); MONOCYTE # 1.4 TH/MM3 (0-0.9); NEUT % 85.8 % (16.0-70.0); PLATELET COUNT 408 TH/MM3 (150-450); RED BLOOD COUNT 2.75 MIL/MM3 (4.50-5.90); RED CELL DISTRIBUTION WIDTH 20.4 % (11.6-17.2); SODIUM (NA) 132 MEQ/L (136-145); WHITE BLOOD COUNT 16.4 TH/MM3 (4.0-11.0)
[2018-03-14 18:40] LABS: ALT (GPT) 12 U/L (12-78)
--- NOTE | 2018-03-14 18:40 | PD ---
Data Data Last Documented VS Vital Signs Date Time Temp Pulse Resp B/P (MAP) Pulse Ox O2 Delivery O2 Flow Rate FiO2 03/14/18 17:31 98 18 123/70 (87) 94 Room Air 03/14/18 17:10 97.1 Orders Orders Sepsis Workup Initiated (03/14/18 ) Complete Blood Count With Diff (03/14/18 17:43) Comprehensive Metabolic Panel (03/14/18 17:43) Prothrombin Time / Inr (Pt) (03/14/18 17:43) Act Partial Throm Time (Ptt) (03/14/18 17:43) Lactic Acid Sepsis Protocol (03/14/18 17:43) Magnesium (Mg) (03/14/18 17:43) Urinalysis - C+S If Indicated (03/14/18 17:43) Blood Culture (03/14/18 17:43) Chest, Single Ap (03/14/18 17:43) Blood Glucose (03/14/18 17:43) Ecg Monitoring (03/14/18 17:43) Iv Access Insert/Monitor (03/14/18 17:43) Oximetry (03/14/18 17:43) Oxygen Administration (03/14/18 17:43) Sodium Chlor 0.9% 1000 Ml Inj (Ns 1000 M (03/14/18 17:45) Sodium Chlor 0.9% 1000 Ml Inj (Ns 1000 M (03/14/18 17:45) Morphine Inj (Morphine Inj) (03/14/18 17:45) Metoclopramide Inj (Reglan Inj) (03/14/18 17:45) Labs Laboratory Tests Test 03/14/18 17:51 03/14/18 17:57 03/14/18 17:58 Lactic Acid Level 2.3 mmol/L [facility] Supervised Visit with IAM: Yes Narrative Course The history, exam, and medical decision-making in the associated mid-level provider note were completed with my assistance. I reviewed and agree with the findings presented. I attest that I had a [id number] encounter with the patient on the same day, and personally performed and documented my assessment and findings in the medical record. *My assessment and Findings: 42-year-old man, history of rectal cancer as well as schizoaffective disorder, COPD. He was diagnosed after he presented for rectal pain constipation with perforation and abscess found to have rectal CA. Was referred in the emergency department reportedly for leukocytosis. He has had a colostomy from Dr. Torres following surgery. He also had several chronic wounds including a sacral decubitus ulcer. He is currently being treated with Xeloda, radiation is deferred until please his wound healing. Is pretty much in a wheelchair at home. Recently his been experiencing worsening generalized weakness, which is why they sue the labs today. He has some anemia which is at baseline. He looks very chronically ill and debilitated. Today we will check labs, is a Chaidez catheter, will recheck his urine. We will give him some IV fluid hydration. Will discuss with oncology, possibly admission for observation. Angelo Mccarthy MD March 14, 2018 18:40
[2018-03-14 18:42] LABS: ALKALINE PHOSPHATASE 69 U/L (45-117); TOTAL BILIRUBIN ADULT 0.2 MG/DL (0.2-1.0); TOTAL PROTEIN 7.1 GM/DL (6.4-8.2)
[2018-03-14 18:56] VITALS: BP 113/69; PULSE 95; RESP 14; O2SAT 95
[2018-03-14 19:02] LABS: BACTERIA, URINE OCC /hpf; BILIRUBIN, URINE NEG (NEG); BLOOD, URINE MOD (NEG); GLUCOSE,URINE NEG (NEG); KETONE, URINE NEG (NEG); MUCUS URINE FEW /lpf (OCC); NITRITE,URINE NEG (NEG); PH, URINE 6.5 (5.0-8.5); SQUAMOUS EPITHELIAL CELL URINE 1 /hpf (0-5); URINE COLOR YELLOW (YELLW/STRAW); URINE LEUKOCYTE ESTERASE LARGE (NEG)
[2018-03-14] MEDS ORDERED: CEFEPIME INJ 2,000 MG in SODIUM CHLORIDE 0.9% INJ 100 ML IV STA (19:10)
[2018-03-14] MEDS ORDERED: IOHEXOL 350 MG/ML 10 ML VIAL (for RAD DIAG) IVCONTRAST ONE (20:24)
--- NOTE | 2018-03-14 20:33 | RADRPT ---
EXAM DATE: 03/14/2018 8:24 PM EDT AGE/SEX: 42 years / Male INDICATIONS: Chest discomfort. CLINICAL DATA: This is the patient's initial encounter. Patient reports that signs and symptoms have been present for 1 day and indicates a pain score of 5/10. MEDICAL/SURGICAL HISTORY: Carcinoma, rectal. Carcinoma, colon. None. RADIATION DOSE: 10.30 CTDI (mGy) COMPARISON: TLI, PET/CT TUMOR, 03/02/2018. . TECHNIQUE: Volumetric scanning was performed using a multi-row detector CT scanner during bolus infu rudolph of 75 ml Omnipaque 350 (iohexol) nonionic water-soluble contrast as a single exam dose. The claudia a was post processed with a variety of visualization algorithms including full volume maximum intensi ty projection and sliding thin slab reformation. Using automated exposure control and adjustment of the mA and/or kV according to patient size, radiation dose was kept as low as reasonably achievable t o obtain optimal diagnostic quality images. FINDINGS: Pulmonary Arteries: No filling defects are seen in the pulmonary arteries out to the subsegmental ve ssels. The left and right pulmonary arteries are normal in diameter. Lung: Patchy airspace disease right lower lobe suspicious for inflammatory process. Effusion: None. Mediastinum: No evidence of mediastinal or hilar adenopathy. Other: The axilla is unremarkable. Large gallstone in the gallbladder. CONCLUSION: 1. Probable airspace disease right lower lobe consistent with an inflammatory process. 2. Large gallstone Electronically signed by: Rodrick Ch MD 03/14/2018 8:32 PM EDT
[2018-03-14] MEDS ORDERED: AZITHROMYCIN INJ 500 MG in SODIUM CHLOR 0.9% 250 ML INJ 250 ML IV ONE (20:45)
[2018-03-14] MEDS ORDERED: SODIUM CHLORIDE 0.9% FLUSH 10 ML FLUSH IV FLUSH PRN (21:00)
[2018-03-14] MEDS: SODIUM CHLORIDE 0.9% FLUSH 10 ML FLUSH IV FLUSH SCH (21:00)
[2018-03-14] MEDS ORDERED: ACETAMINOPHEN 325 MG TAB PO PRN (21:00)
[2018-03-14] MEDS ORDERED: LACTULOSE SYRUP 20 GM/30 ML CUP PO PRN (21:00)
[2018-03-14] MEDS ORDERED: MAGNESIUM HYDROXIDE SUSP 30 ML CUP PO PRN (21:00)
[2018-03-14] MEDS ORDERED: NALOXONE HCL 0.4 MG/ML AMP IV PUSH PRN (21:00)
[2018-03-14] MEDS ORDERED: SENNOSIDES 8.6 MG TAB PO PRN (21:00)
[2018-03-14] MEDS ORDERED: BISACODYL 10 MG SUPP RECTAL PRN (21:00)
[2018-03-14] MEDS ORDERED: PROMETHAZINE HCL 25 MG TAB PO PRN (21:00)
[2018-03-14] MEDS: SODIUM CHLOR 0.9% 1000 ML INJ 1,000 ML IV SCH (21:56)
[2018-03-14] MEDS: DOCUSATE SODIUM 50 MG/SENNA 8.6 MG TAB PO SCH (21:56)
[2018-03-14] MEDS: ENOXAPARIN SODIUM 40 MG/0.4 ML SYRINGE SQ SCH (21:57)
[2018-03-14] MEDS: MORPHINE SULFATE 4 MG/ML INJ IV PUSH PRN (22:44)
[2018-03-14] MEDS: VALPROIC ACID 250 MG CAP PO SCH (22:44)
[2018-03-14 22:45] VITALS: BP 104/65; PULSE 100; RESP 16; O2SAT 96
[2018-03-14 23:25] VITALS: PULSE 100
[2018-03-14 23:40] VITALS: BP 100/54; PULSE 101; RESP 18; TEMP 97.8; O2SAT 98
[2018-03-15] VITALS (13 sets, daily range): BP systolic 100–116; BP diastolic 56–74; PULSE 92–109; RESP 16–22; TEMP 97.4–99.9; O2SAT 91–98
[2018-03-15] MEDS: SODIUM CHLOR 0.9% 1000 ML INJ 1,000 ML IV SCH ×2 (05:05→19:52)
[2018-03-15 06:33] LABS: AUTOMATED NEUTROPHIL # 13.9 TH/MM3 (1.8-7.7); BASOPHIL # 0.1 TH/MM3 (0-0.2); BASOPHIL % 0.3 % (0.0-2.0); EOSINOPHIL % 0.2 % (0.0-4.0); HEMOGLOBIN 7.1 GM/DL (13.0-17.0); LYMPHOCYTE # 0.6 TH/MM3 (1.0-4.8); MEAN CELL VOLUME 92.4 FL (80.0-100.0); MEAN CORPUSCULAR HEMOGLOBIN 29.6 PG (27.0-34.0); MEAN PLATELET VOLUME 7.3 FL (7.0-11.0); MONO % 9.8 % (0.0-8.0); MONOCYTE # 1.6 TH/MM3 (0-0.9); NEUT % 85.7 % (16.0-70.0); PLATELET COUNT 349 TH/MM3 (150-450); RED BLOOD COUNT 2.39 MIL/MM3 (4.50-5.90); RED CELL DISTRIBUTION WIDTH 20.6 % (11.6-17.2); WHITE BLOOD COUNT 16.2 TH/MM3 (4.0-11.0)
[2018-03-15] MEDS: MORPHINE SULFATE 4 MG/ML INJ IV PUSH PRN ×3 (06:35→12:31)
[2018-03-15] MEDS: VALPROIC ACID 250 MG CAP PO SCH ×3 (06:38→22:03)
[2018-03-15 06:55] LABS: ALBUMIN 1.8 GM/DL (3.4-5.0); ALT (GPT) 9 U/L (12-78); AST (GOT) 66 U/L (15-37); BICARBONATE 29.2 MEQ/L (21.0-32.0); BLOOD UREA NITROGEN 10 MG/DL (7-18); CALCIUM 9.9 MG/DL (8.5-10.1); CHLORIDE 101 MEQ/L (98-107); CREATININE 0.65 MG/DL (0.60-1.30); GLOMERULAR FILTRATION RATE 136 ML/MIN (>89); GLUCOSE,RANDOM 81 MG/DL (74-106); SODIUM (NA) 136 MEQ/L (136-145)
[2018-03-15 07:01] LABS: ALKALINE PHOSPHATASE 61 U/L (45-117); TOTAL BILIRUBIN ADULT 0.2 MG/DL (0.2-1.0); TOTAL PROTEIN 6.1 GM/DL (6.4-8.2)
[2018-03-15] MEDS: PROPRANOLOL HCL 20 MG TAB PO SCH ×2 (09:00→22:03)
[2018-03-15] MEDS: GABAPENTIN 100 MG CAP PO SCH ×3 (09:22→16:50)
[2018-03-15] MEDS: SODIUM CHLORIDE 0.9% FLUSH 10 ML FLUSH IV FLUSH SCH ×2 (09:22→19:56)
[2018-03-15] MEDS: DOCUSATE SODIUM 50 MG/SENNA 8.6 MG TAB PO SCH ×2 (09:22→22:03)
[2018-03-15] MEDS: FAMOTIDINE 20 MG TAB PO SCH ×2 (09:22→22:03)
[2018-03-15] MEDS: ARIPiprazole 5 MG TAB PO SCH (09:34)
[2018-03-15] MEDS: hydrOXYzine HCL 50 MG TAB PO SCH ×3 (09:34→16:50)
[2018-03-15] MEDS: risperiDONE ODT 3 MG TAB PO SCH ×2 (09:34→22:03)
--- NOTE | 2018-03-15 14:19 | PD.WCN.NOT ---
Wound Consult Description: Received consult from Randi Villagran [facility] for Doctor Sanchez Communicated with: LUIS Childress [facility]/ oncology and Doctor Recommendation: 1.Leave dressing in place placed today for 7 days or change PRN if saturated or dislodged as follows: Please cleanse wound to Sacrum with normal saline and pat dry.Apply hydrogel to exposed facia and pack wound loosely with puracol plus to cover wound bed and then apply Maxorb II packed loosely to wound bed. Apply skin barrier film to periwound and cover with bordered gauze. Change dressing every 7 days or PRN if saturated or dislodged. 2. Turn patient every 2 hours and PRN for comfort and offloading of pressure from alex prominences. 3. Obtain [place] airapy bed from environmental or if not available please order K4 bed from [employer] - [place]. 4. Please leave dressing in place to R heel for 7 days or change PRN as follows for saturation or dislodgement: Cleanse wound to R heel with normal saline pat dry. Apply povidone iodine to intact eschar and apply puracol plus to pink tissue in wound bed and cover with dry gauze and secure with Optifoam basic and rolled gauze, tape. 5. Float heels with pillows or heel raiser boots. Additional Information: Patient seen on [facility] for evaluation of R heel, sacral and R thigh with Bhavani MARINO and database report writer around 1215.Patient sees Doctor Zenobia for outpatinet wound care Patient was turned to R side for wound assessment of sacral area. Removed adhesive foam dressing in place to reveal open wound to sacrum that measures 5cm x 3.5cm x ~0.6cm. Wound presents with ~50% facia, 30% red non granulation tissue, ~20% muscle tissue. Wound bed is dry. Visible facia and muscle in pressure related wound indicates a stage 4 pressure injury.Wound drainage is minimal, sero-sanguinous without odor. Wound was cleansed with normal saline and patted dry. Hydrogel was then applied over Facia in wound bed and then Puracol plus was packed in wound bed to cover wound bed. Maxorb II was applied over puracol packed loosely to wound bed and covered with bordered gauze. Skin barrier film was applied to periwound before bordered gauze dressing was applied. Removed dressing to R heel to reveal wound that presents with ~20% pink tissue and ~80% black eschar. Wound measures 3cm x 4cm x eschar. Wound is pressure related and is unstageable at this time.Wound was cleansed with normal saline and patted dry.Wound has no drainage or odor. Periwound is unremarkable. Povidone-iodine was applied to black eschar and small piece of puracol was applied over pink tissue. Covered with dry 2x2 gauze pad and secured with Optifoam basic, rolled gauze and tape. Recommendations noted above. Please have patient follow up with Doctor Fregoso after discharge. Jayda Proctor [facility] March 15, 2018 14:19
--- NOTE | 2018-03-15 14:44 | HHI.HP ---
HPI Service [facility] Primary Care Physician [facility] Admission Diagnosis pneumonia, UTI, sepsis, rectal cancer Diagnoses: Chief Complaint: pneumonia Travel History International Travel<30 Days: No Contact w/Intl Traveler <30 Da: No Traveled to Known Affected Are: No History of Present Illness 42-year-old white male being admitted for weakness likely secondary to pneumonia. Patient is a poor historian, history is obtained from patient and emergency room records and the patient's bilingual school psychologist by phone. Patient was apparently referred to the emergency department for looking very "pale" and weak after undergoing a radiation treatment session yesterday. Patient himself cannot specify exactly why he was referred. In the emergency department he was noted to have a white count around 16,000 and hemoglobin of 8.5. CT angiogram was performed of the chest which showed mild infiltrates at best in the right upper lobe suggestive of pneumonia. There are no fevers noted. Patient himself denies any nausea vomiting fevers or chills. He does report having a productive cough which is somewhat worse than usual. When I informed him that he was found to be weak, he denies being weak at all., Says he feels great in terms of his overall strength level. Discussed case with Dr. Nieves who relayed that the patient had a history where he was initially found to have pelvic abscesses that were secondary to a perforation by his rectal cancer, all found in reverse order. He has been seen by Dr. Allan from infectious disease as well as Dr. Torres from colorectal surgery, has a colostomy bag. Review of Systems Except as stated in HPI: all other systems reviewed are Neg Past Family Social History Past Medical History Rectal cancer metastasis Schizoaffective disorder Past Surgical History Ostomy Allergies: Coded Allergies: diphenhydramine (Verified Adverse Reaction, Unknown, 03/14/18) Family History Denies any history of rectal cancer in the family Social History Smoking cigarettes, lives with his mother Physical Exam Vital Signs Vital Signs Date Time Temp Pulse Resp B/P (MAP) Pulse Ox O2 Delivery O2 Flow Rate FiO2 03/15/18 14:08 Nasal Cannula 2.00 03/15/18 12:30 98.5 101 22 114/74 (87) 95 03/15/18 09:36 97.4 106 16 113/67 (82) 91 03/15/18 08:09 108 03/15/18 04:13 107 03/15/18 04:10 98.6 107 18 101/56 (71) 93 03/14/18 23:40 97.8 101 18 100/54 (69) 98 03/14/18 23:25 100 03/14/18 23:01 03/14/18 22:45 100 16 104/65 (78) 96 Nasal Cannula 2.00 03/14/18 18:56 95 14 113/69 (84) 95 Room Air 03/14/18 17:31 98 18 123/70 (87) 94 Room Air 03/14/18 17:10 97.1 106 20 115/70 (85) 90 Physical Exam VS: afebrile GENERAL: Thin male middle-age, lying in bed, awake and alert SKIN: full stage sacral ulcer wound w/ no signs of infected surrounding skin tissue EYES: No scleral icterus. No injection or drainage. ENT: No nasal bleeding or discharge. Mucous membranes pink and moist. CARDIOVASCULAR: Regular rate and rhythm. no murmurs RESPIRATORY: No accessory muscle use. Scattered rhonchi bilaterally, when coughing sounds to have a wet cough GASTROINTESTINAL: Abdomen soft, non-tender, nondistended; colostomy bag appears intact. Extremities: No clubbing, cyanosis, or edema. No obvious deformities. heel of right foot w/ large eschar MUSCULOSKELETAL: Thin muscle bulk and tone for age and habitus NEUROLOGICAL: Awake and alert. No obvious cranial nerve deficits. No facial droop nor slurred speech noted. PSYCHIATRIC: Appropriate mood and affect; slowed judgment, possibly compromised insight. Oriented only 1-2 at best, is disoriented to time Laboratory Laboratory Tests Test 03/14/18 17:51 03/14/18 17:57 03/14/18 18:37 03/14/18 21:40 White Blood Count 16.4 Red Blood Count 2.75 Hemoglobin 8.3 Hematocrit 25.3 Mean Corpuscular Volume 92.0 Mean Corpuscular Hemoglobin 30.1 Mean Corpuscular Hemoglobin Concent 32.7 Red Cell Distribution Width 20.4 Platelet Count 408 Mean Platelet Volume 7.3 Neutrophils (%) (Auto) 85.8 Lymphocytes (%) (Auto) 5.0 Monocytes (%) (Auto) 8.8 Eosinophils (%) (Auto) 0.1 Basophils (%) (Auto) 0.3 Neutrophils # (Auto) 14.1 Lymphocytes # (Auto) 0.8 Monocytes # (Auto) 1.4 Eosinophils # (Auto) 0.0 Basophils # (Auto) 0.0 CBC Comment DIFF FINAL Differential Comment Prothrombin Time 11.8 Prothromb Time International Ratio 1.2 Activated Partial Thromboplast Time 29.3 Blood Urea Nitrogen 13 Creatinine 0.78 Random Glucose 102 Total Protein 7.1 Albumin 2.0 Calcium Level 10.5 Magnesium Level 2.1 Alkaline Phosphatase 69 Aspartate Amino Transf (AST/SGOT) 79 Alanine Aminotransferase (ALT/SGPT) 12 Total Bilirubin 0.2 Sodium Level 132 Potassium Level 4.2 Chloride Level 93 Carbon Dioxide Level 32.3 Anion Gap 7 Estimat Glomerular Filtration Rate 110 Lactic Acid Level 2.3 0.8 Urine Color YELLOW Urine Turbidity HAZY Urine pH 6.5 Urine Specific [place] 1.012 Urine Protein 100 Urine Glucose (UA) NEG Urine Ketones NEG Urine Occult Blood MOD Urine Nitrite NEG Urine Bilirubin NEG Urine Urobilinogen LESS THAN 2.0 Urine Leukocyte Esterase LARGE Urine RBC 18 Urine WBC 87 Urine Squamous Epithelial Cells 1 Urine Bacteria OCC Urine Mucus FEW Microscopic Urinalysis Comment CATH-CULTURE IND Test 03/15/18 05:35 White Blood Count 16.2 Red Blood Count 2.39 Hemoglobin 7.1 Hematocrit 22.0 Mean Corpuscular Volume 92.4 Mean Corpuscular Hemoglobin 29.6 Mean Corpuscular Hemoglobin Concent 32.0 Red Cell Distribution Width 20.6 Platelet Count 349 Mean Platelet Volume 7.3 Neutrophils (%) (Auto) 85.7 Lymphocytes (%) (Auto) 4.0 Monocytes (%) (Auto) 9.8 Eosinophils (%) (Auto) 0.2 Basophils (%) (Auto) 0.3 Neutrophils # (Auto) 13.9 Lymphocytes # (Auto) 0.6 Monocytes # (Auto) 1.6 Eosinophils # (Auto) 0.0 Basophils # (Auto) 0.1 CBC Comment DIFF FINAL Differential Comment Blood Urea Nitrogen 10 Creatinine 0.65 Random Glucose 81 Total Protein 6.1 Albumin 1.8 Calcium Level 9.9 Alkaline Phosphatase 61 Aspartate Amino Transf (AST/SGOT) 66 Alanine Aminotransferase (ALT/SGPT) 9 Total Bilirubin 0.2 Sodium Level 136 Potassium Level 3.8 Chloride Level 101 Carbon Dioxide Level 29.2 Anion Gap 6 Estimat Glomerular Filtration Rate 136 Date/Time Source Procedure Growth Status 03/14/18 17:52 Blood Peripheral Aerobic Blood Culture - Preliminary NO GROWTH IN 1 DAY Resulted 03/14/18 17:52 Blood Peripheral Anaerobic Blood Culture - Preliminary NO GROWTH IN 1 DAY Resulted 03/14/18 18:37 Urine Catheterized Urine Urine Culture Pending Received Result Diagram: 03/15/18 0535 03/15/18 0535 Imaging Last Impressions Chest X-Ray 03/14/18 1743 Signed Impressions: CONCLUSION: Hyperinflation otherwise negative. CT Angiography 03/14/18 0000 Signed Impressions: CONCLUSION: 1. Probable airspace disease right lower lobe consistent with an inflammatory process. 2. Large gallstone Caprini VTE Risk Assessment Caprini VTE Risk Assessment: Mod/High Risk (score >= 2) Caprini Risk Assessment Model Point Value = 1 Point Value = 2 Point Value = 3 Point Value = 5 Age 41-60 Minor surgery BMI > 25 kg/m2 Swollen legs Varicose veins or History of unexplained or recurrent spontaneous Oral contraceptives or hormone replacement Sepsis (< 1 month) Serious lung disease, including pneumonia (< 1 month) Abnormal pulmonary function Acute myocardial infarction Congestive heart failure (< 1 month) History of inflammatory bowel disease Medical patient at bed rest Age 61-74 Arthroscopic surgery Major open surgery (> 45 min) Laparoscopic surgery (> 45 min) Malignancy Confined to bed (> 72 hours) Immobilizing plaster cast Central venous access Age >= 75 History of VTE Family history of VTE Factor V Leiden Prothrombin [id number] Lupus anticoagulant Anticardiolipin antibodies Elevated serum homocysteine Heparin-induced thrombocytopenia Other congenital or acquired thrombophilia Stroke (< 1 month) Elective arthroplasty Hip, pelvis, or leg fracture Acute spinal cord injury (< 1 month) Prophylaxis Regimen Total Risk Factor Score Risk Level Prophylaxis Regimen 0-1 Low Early ambulation 2 Moderate Order ONE of the following: *Sequential Compression Device (SCD) *Heparin 5000 units SQ BID 3-4 Higher Order ONE of the following medications: *Heparin 5000 units SQ TID *Enoxaparin/Lovenox 40 mg SQ daily (WT < 150 kg, CrCl > 30 mL/min) *Enoxaparin/Lovenox 30 mg SQ daily (WT < 150 kg, CrCl > 10-29 mL/min) *Enoxaparin/Lovenox 30 mg SQ BID (WT < 150 kg, CrCl > 30 mL/min) AND/OR *Sequential Compression Device (SCD) 5 or more Highest Order ONE of the following medications: *Heparin 5000 units SQ TID (Preferred with Epidurals) *Enoxaparin/Lovenox 40 mg SQ daily (WT < 150 kg, CrCl > 30 mL/min) *Enoxaparin/Lovenox 30 mg SQ daily (WT < 150 kg, CrCl > 10-29 mL/min) *Enoxaparin/Lovenox 30 mg SQ BID (WT < 150 kg, CrCl > 30 mL/min) AND *Sequential Compression Device (SCD) Assessment and Plan Assessment and Plan 42-year-old white male admitted for weakness likely secondary to pneumonia Pneumonia -Status post azithromycin and cefepime emergency department. Given that he is immunocompromised we will continue cefepime and consider adding on vancomycin. Infectious disease had been consulted by original admitting team -Urinary pneumococcal and Legionella antigens -cbc in AM Weakness -infx vs cancer vs malnutrition and anemia -Fall precautions -PT/OT -Obtain magnesium, TSH, CK, phosphorus levels pyuria - f/u UC, on abx, on aguirre presumably for obstructive uropathy rectal cancer (w/ h/o perforation and abscesses) -heme/onc consulted anemia -trend, like 2/2 chronic dx -will transfuse for now stage 4 sacral decubitus - wound care; possible invasion of cancer towards this, unclear at this time per oncology Chronic pain -Continue home pain medications, stop IV pain medications Schizoaffective disorder -Continue home medications SCDs for now given low h/h Physician Certification 2 Midnight Certification Type: Admission for Inpatient Services Order for Inpatient Services The services are ordered in accordance with Medicare regulations or non- Medicare payer requirements, as applicable. In the case of services not specified as inpatient-only, they are appropriately provided as inpatient services in accordance with the 2-midnight benchmark. Estimated LOS (days): 3 3 days is the estimated time the patient will need to remain in the hospital, assuming treatment plan goals are met and no additional complications. Post-Hospital Plan: Not yet determined Mitch Gonzales MD March 15, 2018 14:44
[2018-03-15] MEDS ORDERED: CEFEPIME INJ 2,000 MG in SODIUM CHLORIDE 0.9% INJ 100 ML IV SCH (16:00)
[2018-03-15] MEDS ORDERED: SODIUM CHLOR 0.9% 250 ML INJ 250 ML IV ONE (16:45)
[2018-03-15] MEDS: HYDROmorphone HCL 2 MG TAB PO PRN (16:51)
[2018-03-15 18:25] LABS: PHOSPHORUS 2.7 MG/DL (2.5-4.9)
--- NOTE | 2018-03-15 18:56 | PD.ID.CON ---
History of Present Illness Service ID Consult Requested By Dr Webber Reason for Consult sepsis Primary Care Physician [facility] Diagnoses: History of Present Illness 42 yo male with schitzoaffective disorder poor historian Per records pt was found to have pelvic abscesses which eventualy lead to diagnosis of perforated rectal cancer pt was diagnosed with rectal cancer sp colostomy now on XRT presented with weakness to his oncologist, labs showed anemia and leukocytosis, CTA showed PNA patchy pneumonia, however CXR was clear UA abnormal with prominent pyuria, cl P blood clx no growth at 1 day Has a aguirre for obstructive uropathy Review of Systems ROS Limitations: Poor Historian Past Family Social History Allergies: Coded Allergies: diphenhydramine (Verified Adverse Reaction, Unknown, 03/14/18) Past Medical History Rectal cancer metastasis Schizoaffective disorder Past Surgical History colostomy Active Ordered Medications Medications where reviewed in EMR Antibiotics Include: cefepime Family History lung cancer - father Social History Smoking cigarettes, lives with his mother no ETOH no drugs Physical Exam Vital Signs Vital Signs Date Time Temp Pulse Resp B/P (MAP) Pulse Ox O2 Delivery O2 Flow Rate FiO2 03/15/18 16:16 99.1 106 22 112/73 (86) 93 03/15/18 14:08 Nasal Cannula 2.00 03/15/18 12:30 98.5 101 22 114/74 (87) 95 03/15/18 09:36 97.4 106 16 113/67 (82) 91 03/15/18 08:09 108 03/15/18 04:13 107 03/15/18 04:10 98.6 107 18 101/56 (71) 93 03/14/18 23:40 97.8 101 18 100/54 (69) 98 03/14/18 23:25 100 03/14/18 23:01 03/14/18 22:45 100 16 104/65 (78) 96 Nasal Cannula 2.00 03/14/18 18:56 95 14 113/69 (84) 95 Room Air Physical Exam CONSTITUTIONAL/GENERAL: This is a thin undernourished male , in no apparent distress. TUBES/LINES/DRAINS: SKIN: No jaundice, rashes, or lesions. Skin temperature appropriate. Not diaphoretic. stage III - IV sacral decub, clean appearing, no odor no drainage HEAD: Atraumatic. Normocephalic. Prominent temporal wasting EYES: Pupils equal and round and reactive. Extraocular motions intact. No scleral icterus. No injection or drainage. Fundi not examined. ENT: Hearing grossly normal. Nose without bleeding or purulent drainage. Throat without visible erythema, exudates, masses, or lesions. poor dentition NECK: Trachea midline. Supple, nontender. No palpable thyroid enlargement or nodularity. CARDIOVASCULAR: Regular rate and rhythm without murmurs, gallops, or rubs. No JVD. Peripheral pulses symmetric. RESPIRATORY/CHEST: Symmetric, unlabored respirations. Clear to auscultation. Breath sounds equal bilaterally. No wheezes, rales, or rhonchi. GASTROINTESTINAL: Abdomen soft, non-tender, nondistended. No hepato-splenomegaly , or palpable masses. No guarding. Bowel sounds present. stoma in place LLQ with formed stool GENITOURINARY: Without palpable bladder distension. Aguirre catheter in place with clear yellow urine MUSCULOSKELETAL: Extremities without clubbing, cyanosis, or edema. No joint tenderness or effusion noted. No calf tenderness. No mottling or clubbing. LYMPHATICS: No palpable cervical or supraclavicular adenopathy. NEUROLOGICAL: Awake and alert. Motor and sensory grossly within normal limits. Follows commands. Clear speech, unable to give history. Moves all extremities. PSYCHIATRIC: calm. Flat affect Laboratory Laboratory Tests Test 03/14/18 18:37 03/14/18 21:40 03/15/18 05:35 Urine Color YELLOW Urine Turbidity HAZY Urine pH 6.5 Urine Specific [place] 1.012 Urine Protein 100 Urine Glucose (UA) NEG Urine Ketones NEG Urine Occult Blood MOD Urine Nitrite NEG Urine Bilirubin NEG Urine Urobilinogen LESS THAN 2.0 Urine Leukocyte Esterase LARGE Urine RBC 18 Urine WBC 87 Urine Squamous Epithelial Cells 1 Urine Bacteria OCC Urine Mucus FEW Microscopic Urinalysis Comment CATH-CULTURE IND Lactic Acid Level 0.8 White Blood Count 16.2 Red Blood Count 2.39 Hemoglobin 7.1 Hematocrit 22.0 Mean Corpuscular Volume 92.4 Mean Corpuscular Hemoglobin 29.6 Mean Corpuscular Hemoglobin Concent 32.0 Red Cell Distribution Width 20.6 Platelet Count 349 Mean Platelet Volume 7.3 Neutrophils (%) (Auto) 85.7 Lymphocytes (%) (Auto) 4.0 Monocytes (%) (Auto) 9.8 Eosinophils (%) (Auto) 0.2 Basophils (%) (Auto) 0.3 Neutrophils # (Auto) 13.9 Lymphocytes # (Auto) 0.6 Monocytes # (Auto) 1.6 Eosinophils # (Auto) 0.0 Basophils # (Auto) 0.1 CBC Comment DIFF FINAL Differential Comment Blood Urea Nitrogen 10 Creatinine 0.65 Random Glucose 81 Total Protein 6.1 Albumin 1.8 Calcium Level 9.9 Alkaline Phosphatase 61 Aspartate Amino Transf (AST/SGOT) 66 Alanine Aminotransferase (ALT/SGPT) 9 Total Bilirubin 0.2 Sodium Level 136 Potassium Level 3.8 Chloride Level 101 Carbon Dioxide Level 29.2 Anion Gap 6 Estimat Glomerular Filtration Rate 136 Date/Time Source Procedure Growth Status 03/14/18 17:52 Blood Peripheral Aerobic Blood Culture - Preliminary NO GROWTH IN 1 DAY Resulted 03/14/18 17:52 Blood Peripheral Anaerobic Blood Culture - Preliminary NO GROWTH IN 1 DAY Resulted 03/14/18 18:37 Urine Catheterized Urine Urine Culture - Preliminary IMMATURE GROWTH - REINCUBATE Resulted Result Diagram: 03/15/18 0535 03/15/18 0535 Imaging Last Impressions Chest X-Ray 03/14/18 1743 Signed Impressions: CONCLUSION: Hyperinflation otherwise negative. CT Angiography 03/14/18 0000 Signed Impressions: CONCLUSION: 1. Probable airspace disease right lower lobe consistent with an inflammatory process. 2. Large gallstone Assessment and Plan Assessment and Plan REctal cancer with mets, large tumor undergoing XRT Leukocytosis Obstructive uropathy UTI, cl x P change abx to zosyn, vanco fu blood and urine clx chck CT abd/pel fu clinically Tiffanie Ann MD March 15, 2018 18:56
--- NOTE | 2018-03-15 19:10 | MB ---
cc: Jihan Webber MD, Ruby Anne E MD Masoodi, Hammad DATE: 03/15/2018 REFERRING PHYSICIAN: Dr. Mitch Gonzales CHIEF COMPLAINT: Dr. Gonzales requests a consultation for Mr. Price regarding a locally advanced colorectal cancer. HISTORY OF PRESENT ILLNESS: Mr. Price is a 42-year-old man, well known patient, with history of schizoaffective disorder, bipolar type. He had initial presentation of constipation and rectal pain and was found to have a gluteal and leg abscess. Ultimately, he was found to have a locally advanced colorectal cancer that perforated causing the abscess. He had multiple surgeries for debridement of his abscess. He was on antibiotic therapy. His treatment for his colorectal cancer was delayed. He is planned for concurrent chemotherapy and radiation. Planning was delayed due to extensively enlarged bladder. He had aguirre placed. He was seen in Radiation Oncology yesterday, on the day of his presentation. He was noted to have dizziness and lightheadedness. He was found to have anemia with a hemoglobin of 8.3, which prompted him to be sent to the emergency room for evaluation. It is noted in the emergency room note that he was sent by Medical Oncology. He was sent from Radiation Oncology where the patient was receiving his planning radiation therapy. On admission, his white count was 16,000, hemoglobin 8.3, platelet count of 408. He received hydration overnight and hemoglobin went down to 7.1. He is unable to say why he came into the hospital. Mother is not at bedside. Imaging study in the emergency room included a CT scan of the chest that showed possible airspace disease in the right lower lobe consistent with an inflammatory process. He has a large gallstone. This was noted previously. Last CT/PET scan for staging only 1-2 weeks ago. He offers no complaints. He was seen by wound care, has dressed his right heel decubitus ulcer. He has a wound in his right hip as well as a large decubitus in the sacrum. Radiation therapy was held today. He had a rising CEA. The case was discussed with Dr. Gonzales and Dr. Ann. His previous history and current treatment plan for his rectal cancer was discussed. Noted resolution of hyponatremia. PRBC was ordered. PAST MEDICAL HISTORY: Anxiety, schizoaffective disorder, bipolar type, COPD, peripheral neuropathy, right basilic vein deep vein thromboses, locally advanced perforated rectal cancer, gluteal and pelvic abscess, status post debridement, right thigh abscess, chronic anemia. PAST SURGICAL HISTORY: Knee surgery, laparoscopic loop colostomy, colonoscopy, rectal biopsy, irrigation and debridement right thigh split-thickness skin graft, irrigation and debridement right hip, right thigh, right knee with would closure and wound VAC placement, skin graft placement. FAMILY HISTORY: Mother is alive. Father has history of lung cancer. SOCIAL HISTORY: He is single. He smokes daily. He drinks occasionally. He lives with his mother. He has other caregiver. ALLERGIES: DIPHENHYDRAMINE. CURRENT MEDICATIONS: 1. Pamelor 2. Oramorph 15 mg b.i.d. 3. Cefepime. 4. Xanax. 5. Dilaudid, 6. Abilify 7. Pepcid. 8. Neurontin. 9. Atarax. 10. Inderal, 11. Risperdal 12. Lovenox. 13. Depakote. PHYSICAL EXAMINATION: VITAL SIGNS: Temperature 99.1, heart rate 106, respiratory rate 22, blood pressure 112/73, saturation 93%. GENERAL: Mr. Price is a pale-appearing young man in no acute distress. He is awake, alert, responds. He is unable to contribute much to the history. He is looking for his mom, who is not at bedside. HEENT: Pupils round, reactive to light and accommodation. Oropharynx is clear. NECK: Supple. LUNGS: Clear. CARDIOVASCULAR: Reveals mild tachycardia. ABDOMEN: Soft and nontender. Left lower colostomy is noted. LOWER EXTREMITIES: Lower extremity with decreased swelling of the right leg and the right knee. Left heel wound is noted. Sacral decubitus in place. Colostomy in place. Urine output good- dilute yellow urine. LABORATORY DATA: Significant for a normocytic anemia. Renal function is normal. AST elevated at 66. Albumin is 1.6. ASSESSMENT AND PLAN: Mr. Price is a 42-year-old man with schizoaffective disorder, bipolar type, seen in oncology clinic for locally advanced colorectal cancer complicated by perforation and abscess. His abscess has been addressed, drained, debrided and he has completed antibiotic therapy recently. His course is further complicated by the right heel, right sacrum decubitus ulcer. There is ongoing treatment with wound care. He pending to start concurrent chemotherapy and radiation to the rectal cancer with Xeloda orally. Chemotherapy will be placed on hold. As discussed with Dr. Gonzales, blood transfusion would be helpful. Urine output will be monitored. He appears to have a new infiltrate in the lung. We will compare to the CT/PET scan done recently for staging. He denies any acute symptoms from the lung findings. It is not clear what brought him into the hospital. He came from Radiation Oncology. His current chronic pain regimen is continued. His chronic psychosis medication is continued. They were recently refilled on an outpatient basis. His questions were answered to his satisfaction. I plan to call his mom to give her a followup. I anticipate that he could be discharged home and continue antibiotic therapy on an outpatient basis. We will let Radiation Oncology know, so that treatment planning can continue. The CEA is monitored. Addendum: Mother was called to supplement history. Aguirre catheter was placed over the weekend with output >3L. After the first day, output continue which out pace his ability to take PO. On presentation to Rad Onc, pt family reported pt's weakness, light headedness and clinical decline over the weekend. Reports intermittent bloody urine. CBC was checked by Dr. Savage Hgb 8.3 and pt was referred to ED. MD MANDI Nelson/ , 06:32 PM , 07:08 PM JOI
[2018-03-15] MEDS ORDERED: DIATRIZOATE MEGLUM/DIATRIZOATE SOD 9 ML CUP PO ONE (19:15)
[2018-03-15] MEDS ORDERED: Vancomycin Consult Pharmacy 1 EA OTHER SCH (19:15)
[2018-03-15] MEDS: PIPERACIL-TAZO 3.375 GM PREMIX 50 ML IV SCH (22:00)
[2018-03-15] MEDS: VANCOMYCIN INJ 1,250 MG in SODIUM CHLOR 0.9% 250 ML INJ 250 ML IV SCH (22:01)
[2018-03-15] MEDS: NORTRIPTYLINE HCL 25 MG CAP PO SCH (22:03)
[2018-03-15] MEDS: MORPHINE SULFATE 15 MG CONTROLLED RELEASE TAB PO SCH (22:03)
[2018-03-15] MEDS: ENOXAPARIN SODIUM 40 MG/0.4 ML SYRINGE SQ SCH (22:04)
--- NOTE | 2018-03-15 22:04 | RADRPT ---
EXAM DATE: 03/15/2018 9:43 PM EDT AGE/SEX: 42 years / Male INDICATIONS: Abdomen pain. CLINICAL DATA: This is the patient's initial encounter. Patient reports that signs and symptoms have been present for 1 day and indicates a pain score of 10/10. MEDICAL/SURGICAL HISTORY: Carcinoma, colon. Carcinoma, rectal. Chronic obstructive pulmonary disease. Asthma Colostomy. RADIATION DOSE: 7.32 CTDI (mGy) COMPARISON: [facility] [place], CT ABDOMEN & PELVIS W CONTRAST, 12/12/2017. . TECHNIQUE: Multiple contiguous axial images were obtained through the abdomen. Images were obtained using multiple row detector helical technique. Using dose reduction techniques, radiation dose was ke pt as low as reasonably achievable to obtain optimal diagnostic quality images. FINDINGS: LOWER LUNGS: Airspace consolidation in the right lung base. LIVER: The liver has a homogeneous density without space-occupying lesion. There is no dilation of t he biliary tree. SPLEEN: Homogeneous density without enlargement. PANCREAS: Unremarkable without mass or calcification. KIDNEYS: Kidneys demonstrate symmetrical size without evidence for hydronephrosis. Punctate calyceal calcifications in the inferior pole the right kidney and mid left kidney. 2 cm indeterminate density cystic lesion in the posterior mid left kidney. Similar 1.3 cm adjacent lesion. ADRENAL GLANDS: Unremarkable. AORTA: Humaira-aneurysmal. BOWEL/MESENTERY: Redemonstration of a fairly large mass centered about the rectum with invasion of t he sacrum and gluteal musculature posteriorly. There is a diverting left lower quadrant colostomy. Sm all to moderate amount of stool throughout the colon. No dilated loops of bowel. No gross free air or pneumatosis. ABDOMINAL WALL: Intact. RETROPERITONEUM: Multiple subcentimeter periaortic nodes. BLADDER: Decompressed secondary to Chaidez catheter. Diffusely thick-walled. REPRODUCTIVE: No abnormal masses or calcifications seen. BONY STRUCTURES: Extensive local invasion of nearly the entire sacrum with apparent involvement of t he adjacent gluteal musculature. No apparent distant metastatic osseous disease. CONCLUSION: 1. Significant interval progression of rectal mass with interval invasion of nearly the entire sacru m and adjacent gluteal musculature. Retroperitoneal adenopathy. Otherwise, no gross distant metastati c disease. 2. Right lung base airspace consolidation. Cannot exclude pneumonia or aspiration in the appropriate clinical setting. ` Electronically signed by: Ric Garber MD 03/15/2018 10:03 PM EDT
[2018-03-16] VITALS (14 sets, daily range): BP systolic 93–112; BP diastolic 49–65; PULSE 65–88; RESP 16–18; TEMP 97.6–98.3; O2SAT 91–100
[2018-03-16] MEDS: PIPERACIL-TAZO 3.375 GM PREMIX 50 ML IV SCH ×4 (02:40→21:11)
[2018-03-16] MEDS: SODIUM CHLOR 0.9% 1000 ML INJ 1,000 ML IV SCH ×2 (02:59→16:00)
[2018-03-16] MEDS: VALPROIC ACID 250 MG CAP PO SCH ×3 (06:13→21:12)
[2018-03-16 08:11] LABS: AUTOMATED NEUTROPHIL # 15.1 TH/MM3 (1.8-7.7); BASOPHIL # 0.1 TH/MM3 (0-0.2); BASOPHIL % 0.5 % (0.0-2.0); EOSINOPHIL # 0.1 TH/MM3 (0-0.4); EOSINOPHIL % 0.4 % (0.0-4.0); HEMATOCRIT 26.6 % (39.0-51.0); HEMOGLOBIN 8.8 GM/DL (13.0-17.0); LYMPH % 4.7 % (9.0-44.0); LYMPHOCYTE # 0.8 TH/MM3 (1.0-4.8); MEAN CELL VOLUME 91.6 FL (80.0-100.0); MEAN CORPUSCULAR HEMOGLOBIN 30.2 PG (27.0-34.0); MEAN PLATELET VOLUME 7.1 FL (7.0-11.0); MONO % 7.8 % (0.0-8.0); MONOCYTE # 1.4 TH/MM3 (0-0.9); NEUT % 86.6 % (16.0-70.0); PLATELET COUNT 308 TH/MM3 (150-450); WHITE BLOOD COUNT 17.5 TH/MM3 (4.0-11.0)
[2018-03-16] MEDS: PROPRANOLOL HCL 20 MG TAB PO SCH ×2 (08:54→21:12)
[2018-03-16] MEDS: GABAPENTIN 100 MG CAP PO SCH ×3 (08:54→18:12)
[2018-03-16] MEDS: risperiDONE ODT 3 MG TAB PO SCH ×2 (08:54→21:12)
[2018-03-16] MEDS: DOCUSATE SODIUM 50 MG/SENNA 8.6 MG TAB PO SCH ×2 (08:54→21:12)
[2018-03-16] MEDS: ARIPiprazole 5 MG TAB PO SCH (08:55)
[2018-03-16] MEDS: ALPRAZolam 0.5 MG TAB PO PRN ×2 (08:55→18:12)
[2018-03-16] MEDS: FAMOTIDINE 20 MG TAB PO SCH ×2 (08:55→21:12)
[2018-03-16] MEDS: SODIUM CHLORIDE 0.9% FLUSH 10 ML FLUSH IV FLUSH SCH ×2 (09:00→21:20)
--- NOTE | 2018-03-16 09:45 | PD.ONC.PN ---
Subjective Subjective Remarks Afebrile overnight. Patient resting in bed in nad. eating pancakes. denies dizziness today. Objective Data Date Time Temp Pulse Resp B/P (MAP) Pulse Ox O2 Delivery O2 Flow Rate FiO2 03/16/18 08:08 99 03/16/18 08:00 97.6 88 18 108/65 (79) 98 03/16/18 06:09 97.7 79 16 96/60 99 03/16/18 04:01 97.9 88 16 108/49 100 03/16/18 04:00 79 03/16/18 03:47 97.8 79 16 102/60 100 03/16/18 03:25 97.7 78 18 112/55 100 03/16/18 02:00 98.1 85 16 108/63 100 03/16/18 00:28 98.2 88 16 103/60 96 03/16/18 00:00 86 03/15/18 23:16 98.4 92 18 110/65 97 03/15/18 23:03 99.9 92 18 100/71 98 03/15/18 22:40 99.3 97 16 112/57 93 03/15/18 20:00 109 03/15/18 20:00 98.9 106 18 116/67 (83) 97 03/15/18 19:53 93 2.00 03/15/18 16:16 99.1 106 22 112/73 (86) 93 03/15/18 16:00 108 03/15/18 14:08 Nasal Cannula 2.00 03/15/18 12:30 98.5 101 22 114/74 (87) 95 03/15/18 12:00 108 03/16/18 03/16/18 03/16/18 07:00 15:00 23:00 Intake Total 2362.5 ml Output Total 3500 ml Balance -1137.5 ml Result Diagram: 03/16/18 0750 03/15/18 0535 Laboratory Results Laboratory Tests Test 03/16/18 07:50 White Blood Count 17.5 TH/MM3 Red Blood Count 2.90 MIL/MM3 Hemoglobin 8.8 GM/DL Hematocrit 26.6 % Mean Corpuscular Volume 91.6 FL Mean Corpuscular Hemoglobin 30.2 PG Mean Corpuscular Hemoglobin Concent 33.0 % Red Cell Distribution Width 20.0 % Platelet Count 308 TH/MM3 Mean Platelet Volume 7.1 FL Neutrophils (%) (Auto) 86.6 % Lymphocytes (%) (Auto) 4.7 % Monocytes (%) (Auto) 7.8 % Eosinophils (%) (Auto) 0.4 % Basophils (%) (Auto) 0.5 % Neutrophils # (Auto) 15.1 TH/MM3 Lymphocytes # (Auto) 0.8 TH/MM3 Monocytes # (Auto) 1.4 TH/MM3 Eosinophils # (Auto) 0.1 TH/MM3 Basophils # (Auto) 0.1 TH/MM3 CBC Comment DIFF FINAL Differential Comment Culture Results Microbiology Date/Time Source Procedure Growth Status 03/14/18 17:52 Blood Peripheral Aerobic Blood Culture - Preliminary NO GROWTH IN 1 DAY Resulted 03/14/18 17:52 Blood Peripheral Anaerobic Blood Culture - Preliminary NO GROWTH IN 1 DAY Resulted 03/14/18 17:40 Blood Peripheral Aerobic Blood Culture - Preliminary NO GROWTH IN 1 DAY Resulted 03/14/18 17:40 Blood Peripheral Anaerobic Blood Culture - Preliminary NO GROWTH IN 1 DAY Resulted 03/15/18 21:58 Urine Random Urine Legionella Antigen - Final PRESUMPTIVE NEGATIVE FOR LEGIONELLA P... Complete 03/15/18 21:58 Urine Random Urine Streptococcus pneumoniae Antigen (M - Final PRESUMPTIVE NEGATIVE FOR STREPTOCOCCU... Complete 03/14/18 18:37 Urine Catheterized Urine Urine Culture - Preliminary IMMATURE GROWTH - REINCUBATE Resulted Administered Medications Medications (Trade) Dose Ordered Sig/Mega Route PRN Reason Start Time Stop Time Status Last Admin Dose Admin Sodium Chloride 1,000 ml @ 100 mls/hr Q10H IV 03/14/18 20:59 03/15/18 19:52 Sodium Chloride (NS Flush) 2 ml UNSCH PRN IV FLUSH FLUSH AFTER USING IV ACCESS 03/14/18 21:00 03/15/18 06:35 Sodium Chloride (NS Flush) 2 ml BID IV FLUSH 03/14/18 21:00 03/15/18 19:56 Enoxaparin Sodium (Lovenox Inj) 40 mg Q24H SQ 03/14/18 22:00 03/15/18 22:04 Senna/Docusate Sodium (Betty-Colace) 1 tab BID PO 03/14/18 21:00 03/16/18 08:54 Aripiprazole (Abilify) 5 mg DAILY PO 03/15/18 09:00 03/16/18 08:55 Famotidine (Pepcid) 20 mg Q12HR PO 03/15/18 09:00 03/16/18 08:55 Gabapentin (Neurontin) 200 mg TID PO 03/15/18 09:00 03/16/18 08:54 Hydroxyzine HCl (Atarax) 50 mg TID PO 03/15/18 09:00 03/15/18 16:50 Nortriptyline HCl (Pamelor) 25 mg HS PO 03/15/18 21:00 03/15/18 22:03 Propranolol HCl (Inderal) 20 mg Q12HR PO 03/15/18 09:00 03/16/18 08:54 Risperidone (risperDAL M-TAB) 3 mg Q12HR PO 03/15/18 09:00 03/16/18 08:54 Valproic Acid (Depakene) 500 mg Q8HR PO 03/14/18 22:00 03/16/18 06:13 Hydromorphone HCl (Dilaudid) 2 mg Q8H PRN PO Pain Management 1-10 03/15/18 14:45 03/15/18 16:51 Morphine Sulfate (Oramorph Sr) 15 mg BID PO 03/15/18 21:00 03/15/18 22:03 Alprazolam (Xanax) 0.5 mg Q8H PRN PO anxiety 03/15/18 15:00 03/16/18 08:55 Piperacillin Sod/ Tazobactam Sod 50 ml @ 100 mls/hr Q6H IV 03/15/18 20:00 03/16/18 08:54 Vancomycin HCl 1250 mg/Sodium Chloride 262.5 ml @ 250 mls/hr Q12H IV 03/15/18 20:00 03/15/18 22:01 Objective Remarks GENERAL: Middle aged male, sitting up in bed in [facility]. SKIN: Warm and dry. HEAD: Normocephalic. EYES: No injection or drainage. NECK: Supple, trachea midline. CARDIOVASCULAR: Regular rate and rhythm RESPIRATORY: Breath sounds equal bilaterally. No accessory muscle use. GASTROINTESTINAL: Abdomen soft, +colostomy bag, filled with stool, nondistended. EXTREMITIES: No cyanosis NEUROLOGICAL: awake, normal speech Assessment/Plan Assessment 42y/o male with locally advanced colorectal cancer admitted with dizziness. history of schizoaffective disorder, bipolar type. h/o COPD, peripheral neuropathy, right basilic vein deep vein thromboses, locally advanced perforated rectal cancer, gluteal and pelvic abscess, status post debridement, right thigh abscess, chronic anemia. h/o laparoscopic loop colostomy, colonoscopy, rectal biopsy, irrigation and debridement right thigh split-thickness skin graft, irrigation and debridement right hip, right thigh, right knee with would closure and wound VAC placement, skin graft placement. Plan 1. locally advanced colorectal cancer: plan to start concurrent xeloda/xrt outpatient 2. patient can be discharged from medical oncology perspective with aguirre catheter in place, if cleared by infectious disease. Brunilda Nieto March 16, 2018 09:45
[2018-03-16] MEDS: hydrOXYzine HCL 50 MG TAB PO SCH ×3 (10:27→18:12)
[2018-03-16] MEDS: VANCOMYCIN INJ 1,250 MG in SODIUM CHLOR 0.9% 250 ML INJ 250 ML IV SCH (10:27)
[2018-03-16] MEDS: MORPHINE SULFATE 15 MG CONTROLLED RELEASE TAB PO SCH ×2 (10:28→21:12)
--- NOTE | 2018-03-16 12:56 | HHI.PR ---
Subjective Remarks 42-year-old white male being admitted for weakness likely secondary to pneumonia. 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 Patient was apparently referred to the emergency department for looking very "pale" and weak after undergoing a radiation treatment session yesterday. Patient himself cannot specify exactly why he was referred. In the emergency department he was noted to have a white count around 16,000 and hemoglobin of 8.5. CT angiogram was performed of the chest which showed mild infiltrates at best in the right upper lobe suggestive of pneumonia. There are no fevers noted. Patient himself denies any nausea vomiting fevers or chills. He does report having a productive cough which is somewhat worse than usual. When I informed him that he was found to be weak, he denies being weak at all., Says he feels great in terms of his overall strength level. Discussed case with Dr. Nieves who relayed that the patient had a history where he was initially found to have pelvic abscesses that were secondary to a perforation by his rectal cancer, all found in reverse order. He has been seen by Dr. Allan from infectious disease as well as Dr. Torres from colorectal surgery, has a colostomy bag. 03-16 COLOSTOMY BAG IS LEAKING CONTINUE ANTIBIOTICS HAVING GOOD AMOUNT OF STOOLS DW RN AND PT AND ONCOLOGY AND ID AND CM AM LABS MONITOR Objective Vitals Vital Signs Date Time Temp Pulse Resp B/P (MAP) Pulse Ox O2 Delivery O2 Flow Rate FiO2 03/16/18 12:00 97.7 76 18 93/55 (68) 94 03/16/18 10:44 77 03/16/18 08:08 99 03/16/18 08:00 97.6 88 18 108/65 (79) 98 03/16/18 06:09 97.7 79 16 96/60 99 03/16/18 04:01 97.9 88 16 108/49 100 03/16/18 04:00 79 03/16/18 03:47 97.8 79 16 102/60 100 03/16/18 03:25 97.7 78 18 112/55 100 03/16/18 02:00 98.1 85 16 108/63 100 03/16/18 00:28 98.2 88 16 103/60 96 03/16/18 00:00 86 03/15/18 23:16 98.4 92 18 110/65 97 03/15/18 23:03 99.9 92 18 100/71 98 03/15/18 22:40 99.3 97 16 112/57 93 03/15/18 20:00 109 03/15/18 20:00 98.9 106 18 116/67 (83) 97 03/15/18 19:53 93 2.00 03/15/18 16:16 99.1 106 22 112/73 (86) 93 03/15/18 16:00 108 03/15/18 14:08 Nasal Cannula 2.00 I/O 03/15/18 03/15/18 03/15/18 03/16/18 03/16/18 03/16/18 07:00 15:00 23:00 07:00 15:00 23:00 Intake Total 1610 ml 1200 ml 2362.5 ml Output Total 550 ml 1700 ml 500 ml 3500 ml Balance 1060 ml -1700 ml 700 ml -1137.5 ml Intake Oral 360 ml 1200 ml IV Total 1250 ml 1200 ml 362.5 ml Packed Cells 800 ml Output Urine Total 550 ml 1700 ml 500 ml 3500 ml Stool Total 0 ml # Bowel Movements 1 Result Diagram: 03/16/18 0750 03/15/18 0535 Other Results Laboratory Tests Test 03/14/18 17:51 03/14/18 17:57 03/14/18 18:37 03/14/18 21:40 White Blood Count 16.4 TH/MM3 Red Blood Count 2.75 MIL/MM3 Hemoglobin 8.3 GM/DL Hematocrit 25.3 % Mean Corpuscular Volume 92.0 FL Mean Corpuscular Hemoglobin 30.1 PG Mean Corpuscular Hemoglobin Concent 32.7 % Red Cell Distribution Width 20.4 % Platelet Count 408 TH/MM3 Mean Platelet Volume 7.3 FL Neutrophils (%) (Auto) 85.8 % Lymphocytes (%) (Auto) 5.0 % Monocytes (%) (Auto) 8.8 % Eosinophils (%) (Auto) 0.1 % Basophils (%) (Auto) 0.3 % Neutrophils # (Auto) 14.1 TH/MM3 Lymphocytes # (Auto) 0.8 TH/MM3 Monocytes # (Auto) 1.4 TH/MM3 Eosinophils # (Auto) 0.0 TH/MM3 Basophils # (Auto) 0.0 TH/MM3 CBC Comment DIFF FINAL Differential Comment Prothrombin Time 11.8 SEC Prothromb Time International Ratio 1.2 RATIO Activated Partial Thromboplast Time 29.3 SEC Blood Urea Nitrogen 13 MG/DL Creatinine 0.78 MG/DL Random Glucose 102 MG/DL Total Protein 7.1 GM/DL Albumin 2.0 GM/DL Calcium Level 10.5 MG/DL Magnesium Level 2.1 MG/DL Alkaline Phosphatase 69 U/L Aspartate Amino Transf (AST/SGOT) 79 U/L Alanine Aminotransferase (ALT/SGPT) 12 U/L Total Bilirubin 0.2 MG/DL Sodium Level 132 MEQ/L Potassium Level 4.2 MEQ/L Chloride Level 93 MEQ/L Carbon Dioxide Level 32.3 MEQ/L Anion Gap 7 MEQ/L Estimat Glomerular Filtration Rate 110 ML/MIN Lactic Acid Level 2.3 mmol/L 0.8 mmol/L Urine Color YELLOW Urine Turbidity HAZY Urine pH 6.5 Urine Specific [place] 1.012 Urine Protein 100 mg/dL Urine Glucose (UA) NEG mg/dL Urine Ketones NEG mg/dL Urine Occult Blood MOD Urine Nitrite NEG Urine Bilirubin NEG Urine Urobilinogen LESS THAN 2.0 MG/DL Urine Leukocyte Esterase LARGE Urine RBC 18 /hpf Urine WBC 87 /hpf Urine Squamous Epithelial Cells 1 /hpf Urine Bacteria OCC /hpf Urine Mucus FEW /lpf Microscopic Urinalysis Comment CATH-CULTURE IND Test 03/15/18 05:35 03/16/18 07:50 White Blood Count 16.2 TH/MM3 17.5 TH/MM3 Red Blood Count 2.39 MIL/MM3 2.90 MIL/MM3 Hemoglobin 7.1 GM/DL 8.8 GM/DL Hematocrit 22.0 % 26.6 % Mean Corpuscular Volume 92.4 FL 91.6 FL Mean Corpuscular Hemoglobin 29.6 PG 30.2 PG Mean Corpuscular Hemoglobin Concent 32.0 % 33.0 % Red Cell Distribution Width 20.6 % 20.0 % Platelet Count 349 TH/MM3 308 TH/MM3 Mean Platelet Volume 7.3 FL 7.1 FL Neutrophils (%) (Auto) 85.7 % 86.6 % Lymphocytes (%) (Auto) 4.0 % 4.7 % Monocytes (%) (Auto) 9.8 % 7.8 % Eosinophils (%) (Auto) 0.2 % 0.4 % Basophils (%) (Auto) 0.3 % 0.5 % Neutrophils # (Auto) 13.9 TH/MM3 15.1 TH/MM3 Lymphocytes # (Auto) 0.6 TH/MM3 0.8 TH/MM3 Monocytes # (Auto) 1.6 TH/MM3 1.4 TH/MM3 Eosinophils # (Auto) 0.0 TH/MM3 0.1 TH/MM3 Basophils # (Auto) 0.1 TH/MM3 0.1 TH/MM3 CBC Comment DIFF FINAL DIFF FINAL Differential Comment Blood Urea Nitrogen 10 MG/DL Creatinine 0.65 MG/DL Random Glucose 81 MG/DL Total Protein 6.1 GM/DL Albumin 1.8 GM/DL Calcium Level 9.9 MG/DL Alkaline Phosphatase 61 U/L Aspartate Amino Transf (AST/SGOT) 66 U/L Alanine Aminotransferase (ALT/SGPT) 9 U/L Total Bilirubin 0.2 MG/DL Sodium Level 136 MEQ/L Potassium Level 3.8 MEQ/L Chloride Level 101 MEQ/L Carbon Dioxide Level 29.2 MEQ/L Anion Gap 6 MEQ/L Estimat Glomerular Filtration Rate 136 ML/MIN Phosphorus Level 2.7 MG/DL Total Creatine Kinase 134 U/L Thyroid Stimulating Hormone 3rd Gen 5.470 uIU/ML Imaging Last Impressions Abdomen/Pelvis CT 03/15/18 0000 Signed Impressions: CONCLUSION: 1. Significant interval progression of rectal mass with interval invasion of n early the entire sacrum and adjacent gluteal musculature. Retroperitoneal adeno suzanna. Otherwise, no gross distant metastatic disease. 2. Right lung base airspace consolidation. Cannot exclude pneumonia or aspirat ion in the appropriate clinical setting. ` Chest X-Ray 03/14/18 1743 Signed Impressions: CONCLUSION: Hyperinflation otherwise negative. CT Angiography 03/14/18 0000 Signed Impressions: CONCLUSION: 1. Probable airspace disease right lower lobe consistent with an inflammatory process. 2. Large gallstone Objective Remarks GENERAL: Awake and alert and oriented 3 talkative and cooperative SKIN: Warm and dry. Colostomy on abdomen full stage sacral ulcer wound w/ no signs of infected surrounding skin tissue HEAD: Atraumatic. Normocephalic. EYES: Pupils equal and round. No scleral icterus. No injection or drainage. Extraocular muscles intact ENT: No nasal bleeding or discharge. Mucous membranes pink and moist. Tongue is midline NECK: Trachea midline. No JVD. CARDIOVASCULAR: Regular rate and rhythm. S1-S2 no S3 or S4 RESPIRATORY: No accessory muscle use. Clear to auscultation. Breath sounds equal bilaterally. GASTROINTESTINAL: Abdomen soft, non-tender, nondistended. Hepatic and splenic margins not palpable. Colostomy bag in place MUSCULOSKELETAL: Extremities without clubbing, cyanosis, or edema. No obvious deformities. NEUROLOGICAL: Awake and alert. No obvious cranial nerve deficits. Motor grossly within normal limits. 4 out of 5 muscle strength in the arms and legs. Normal speech. PSYCHIATRIC: INAppropriate mood and affect; insight and judgment ABnormal. Medications and IVs Current Medications Sodium Chloride 1,000 ml @ 999 mls/hr BOLUS ONCE IV Last administered on 03/14 18:08; Start 03/14/18 at 17:45; Stop 03/14/18 at 18:45; Status DC Sodium Chloride 1,000 ml @ 999 mls/hr BOLUS ONCE IV Last administered on 03/14 18:08; Start 03/14/18 at 17:45; Stop 03/14/18 at 18:45; Status DC Morphine Sulfate (Morphine Inj) 4 mg ONCE ONCE IV PUSH Last administered on 18:07; Start 03/14/18 at 17:45; Stop 03/15/18 at 14:39; Status DC Metoclopramide HCl (Reglan Inj) 10 mg ONCE ONCE IV PUSH Last administered on 18:07; Start 03/14/18 at 17:45; Stop 03/14/18 at 17:46; Status DC Cefepime HCl 2000 mg/Sodium Chloride 100 ml @ 200 mls/hr ONCE STAT IV Last administered on 03/14/18 19:42; Start 03/14/18 at 19:10; Stop 03/14/18 at 19:39 ; Status DC Iohexol (Omnipaque 350 Inj) 75 ml STK-MED ONCE IVCONTRAST Last administered on 03/14/18 20:24; Start 03/14/18 at 20:24; Stop 03/14/18 at 20:25; Status DC Azithromycin 500 mg/Sodium Chloride 250 ml @ 250 mls/hr ONCE ONCE IV Last administered on 03/14/18 21:03; Start 03/14/18 at 20:45; Stop 03/14/18 at 21:44 ; Status DC Sodium Chloride 1,000 ml @ 100 mls/hr Q10H IV Last administered on 03/15/18at 19:52; Start 03/14/18 at 20:59 Sodium Chloride (NS Flush) 2 ml UNSCH PRN IV FLUSH FLUSH AFTER USING IV ACCESS Last administered on 03/15/18at 06:35; Start 03/14/18 at 21:00 Sodium Chloride (NS Flush) 2 ml BID IV FLUSH Last administered on 03/15/18at 19: 56; Start 03/14/18 at 21:00 Acetaminophen (Tylenol) 650 mg Q4H PRN PO TEMP > 100.4; Start 03/14/18 at 21:00 Enoxaparin Sodium (Lovenox Inj) 40 mg Q24H SQ Last administered on 03/15/18at 22 :04; Start 03/14/18 at 22:00 Naloxone HCl (Narcan Inj) 0.4 mg UNSCH PRN IV PUSH SEE LABEL COMMENTS; Start at 21:00 Senna/Docusate Sodium (Betty-Colace) 1 tab BID PO Last administered on at 08:54; Start 03/14/18 at 21:00 Magnesium Hydroxide (Milk Of Magnesia Liq) 30 ml Q12H PRN PO Mild constipation ; Start 03/14/18 at 21:00 Sennosides (Senokot) 17.2 mg Q12H PRN PO Moderate constipation; Start 03/14/18 at 21:00 Bisacodyl (Dulcolax Supp) 10 mg DAILY PRN RECTAL SEVERE CONSITIPATION; Start at 21:00 Lactulose (Lactulose Liq) 30 ml DAILY PRN PO SEVERE CONSITIPATION; Start at 21:00 Promethazine HCl (Phenergan) 12.5 mg Q6H PRN PO NAUSEA OR VOMITING; Start 03/14 at 21:00 Morphine Sulfate (Morphine Inj) 2 mg Q3H PRN IV PUSH PAIN SCALE 6-10 OR SEVERE SOB Last administered on 03/15/18at 12:31; Start 03/14/18 at 21:30; Stop at 14:39; Status DC Aripiprazole (Abilify) 5 mg DAILY PO Last administered on 03/16/18 08:55; Start 03/15/18 at 09:00 Famotidine (Pepcid) 20 mg Q12HR PO Last administered on 03/16/18 08:55; Start 03/15/18 at 09:00 Gabapentin (Neurontin) 200 mg TID PO Last administered on 03/16/18 08:54; Start 03/15/18 at 09:00 Hydroxyzine HCl (Atarax) 50 mg TID PO Last administered on 03/16/18 10:27; Start 03/15/18 at 09:00 Nortriptyline HCl (Pamelor) 25 mg HS PO Last administered on 03/15/18 22:03; Start 03/15/18 at 21:00 Propranolol HCl (Inderal) 20 mg Q12HR PO Last administered on 03/16/18 08:54; Start 03/15/18 at 09:00 Risperidone (risperDAL M-TAB) 3 mg Q12HR PO Last administered on 03/16/18 08: 54; Start 03/15/18 at 09:00 Valproic Acid (Depakene) 500 mg Q8HR PO Last administered on 03/16/18 06:13; Start 03/14/18 at 22:00 Hydromorphone HCl (Dilaudid) 2 mg Q8H PRN PO Pain Management 1-10 Last administered on 03/15/18 16:51; Start 03/15/18 at 14:45 Morphine Sulfate (Oramorph Sr) 15 mg BID PO Last administered on 03/16/18 10: 28; Start 03/15/18 at 21:00 Alprazolam (Xanax) 0.5 mg Q8H PRN PO anxiety Last administered on 03/16/18 08: 55; Start 03/15/18 at 15:00 Cefepime HCl 2000 mg/Sodium Chloride 100 ml @ 200 mls/hr Q8H IV Last administered on 03/15/18 17:03; Start 03/15/18 at 16:00; Stop 03/15/18 at 19:05 ; Status DC Sodium Chloride 250 ml @ 15 mls/hr ONCE ONCE IV Last administered on 02:00; Start 03/15/18 at 16:45; Stop 03/16/18 at 09:24; Status DC Piperacillin Sod/ Tazobactam Sod 50 ml @ 100 mls/hr Q6H IV Last administered on 03/16/18at 08:54; Start 03/15/18 at 20:00 Pharmacy Profile Note 0 ml @ 0 mls/hr UNSCH OTHER ; Start 03/15/18 at 19:15 Diatrizoate Meglum/ Diatrizoate Sod ( Gastrozohaib Liq) 18 ml ONCE ONCE PO Last administered on 03/15/18at 19:51; Start 03/15/18 at 19:15; Stop 03/15/18 at 19:16; Status DC Vancomycin HCl 1250 mg/Sodium Chloride 262.5 ml @ 250 mls/hr Q12H IV Last administered on 03/16/18at 10:27; Start 03/15/18 at 20:00 Miscellaneous Information ([facility] [place] [facility] Ordered Lab Info) SPECIFIC LAB TO BE ... ONCE ONCE .XX ; Start 03/17/18 at 07:45; Stop 03/17/18 at 07:46 A/P Assessment and Plan 42-year-old white male admitted for weakness likely secondary to pneumonia Pneumonia -Status post azithromycin and cefepime emergency department. Given that he is immunocompromised we will continue cefepime and consider adding on vancomycin. Infectious disease had been consulted by original admitting team -Urinary pneumococcal and Legionella antigens -cbc in AM Weakness -infx vs cancer vs malnutrition and anemia -Fall precautions -PT/OT -Obtain magnesium, TSH, CK, phosphorus levels pyuria - f/u UC, on abx, on aguirre presumably for obstructive uropathy rectal cancer (w/ h/o perforation and abscesses) -heme/onc consulted anemia -trend, like 2/2 chronic dx -will transfuse for now stage 4 sacral decubitus/unstageable sacral - wound care; possible invasion of cancer towards this, unclear at this time per oncology Chronic pain -Continue home pain medications, stop IV pain medications Schizoaffective disorder -Continue home medications SCDs for now given low h/h Discharge Planning Pending improvement Rodrick Clifford DO March 16, 2018 12:56
--- NOTE | 2018-03-16 12:57 | HHI.IDPN ---
Subjective Subjective Remarks tells me that he is not doing good today but can not elaborate he had CT done and it showed no abscess, but showed enlarging recal mass invading muscle and bone WBC keep going up urine clx cw contamination Antibiotics julee mclaughlin Past Medical History metastatic and localy advanced rectal cancer Allergies: Coded Allergies: diphenhydramine (Verified Adverse Reaction, Unknown, 03/14/18) Objective . Vital Signs Date Time Temp Pulse Resp B/P (MAP) Pulse Ox O2 Delivery O2 Flow Rate FiO2 03/16/18 12:00 97.7 76 18 93/55 (68) 94 03/16/18 10:44 77 03/16/18 08:08 99 03/16/18 08:00 97.6 88 18 108/65 (79) 98 03/16/18 06:09 97.7 79 16 96/60 99 03/16/18 04:01 97.9 88 16 108/49 100 03/16/18 04:00 79 03/16/18 03:47 97.8 79 16 102/60 100 03/16/18 03:25 97.7 78 18 112/55 100 03/16/18 02:00 98.1 85 16 108/63 100 03/16/18 00:28 98.2 88 16 103/60 96 03/16/18 00:00 86 03/15/18 23:16 98.4 92 18 110/65 97 03/15/18 23:03 99.9 92 18 100/71 98 03/15/18 22:40 99.3 97 16 112/57 93 03/15/18 20:00 109 03/15/18 20:00 98.9 106 18 116/67 (83) 97 03/15/18 19:53 93 2.00 03/15/18 16:16 99.1 106 22 112/73 (86) 93 03/15/18 16:00 108 03/15/18 14:08 Nasal Cannula 2.00 . Laboratory Tests Test 03/14/18 17:51 03/15/18 05:35 03/16/18 07:50 White Blood Count 16.4 TH/MM3 16.2 TH/MM3 17.5 TH/MM3 Red Blood Count 2.75 MIL/MM3 2.39 MIL/MM3 2.90 MIL/MM3 Hemoglobin 8.3 GM/DL 7.1 GM/DL 8.8 GM/DL Hematocrit 25.3 % 22.0 % 26.6 % Mean Corpuscular Volume 92.0 FL 92.4 FL 91.6 FL Mean Corpuscular Hemoglobin 30.1 PG 29.6 PG 30.2 PG Mean Corpuscular Hemoglobin Concent 32.7 % 32.0 % 33.0 % Red Cell Distribution Width 20.4 % 20.6 % 20.0 % Platelet Count 408 TH/MM3 349 TH/MM3 308 TH/MM3 Mean Platelet Volume 7.3 FL 7.3 FL 7.1 FL Neutrophils (%) (Auto) 85.8 % 85.7 % 86.6 % Lymphocytes (%) (Auto) 5.0 % 4.0 % 4.7 % Monocytes (%) (Auto) 8.8 % 9.8 % 7.8 % Eosinophils (%) (Auto) 0.1 % 0.2 % 0.4 % Basophils (%) (Auto) 0.3 % 0.3 % 0.5 % Neutrophils # (Auto) 14.1 TH/MM3 13.9 TH/MM3 15.1 TH/MM3 Lymphocytes # (Auto) 0.8 TH/MM3 0.6 TH/MM3 0.8 TH/MM3 Monocytes # (Auto) 1.4 TH/MM3 1.6 TH/MM3 1.4 TH/MM3 Eosinophils # (Auto) 0.0 TH/MM3 0.0 TH/MM3 0.1 TH/MM3 Basophils # (Auto) 0.0 TH/MM3 0.1 TH/MM3 0.1 TH/MM3 CBC Comment DIFF FINAL DIFF FINAL DIFF FINAL Differential Comment Laboratory Tests Test 03/14/18 17:51 03/14/18 17:57 03/14/18 21:40 03/15/18 05:35 Blood Urea Nitrogen 13 MG/DL 10 MG/DL Creatinine 0.78 MG/DL 0.65 MG/DL Random Glucose 102 MG/DL 81 MG/DL Total Protein 7.1 GM/DL 6.1 GM/DL Albumin 2.0 GM/DL 1.8 GM/DL Calcium Level 10.5 MG/DL 9.9 MG/DL Magnesium Level 2.1 MG/DL Alkaline Phosphatase 69 U/L 61 U/L Aspartate Amino Transf (AST/SGOT) 79 U/L 66 U/L Alanine Aminotransferase (ALT/SGPT) 12 U/L 9 U/L Total Bilirubin 0.2 MG/DL 0.2 MG/DL Sodium Level 132 MEQ/L 136 MEQ/L Potassium Level 4.2 MEQ/L 3.8 MEQ/L Chloride Level 93 MEQ/L 101 MEQ/L Carbon Dioxide Level 32.3 MEQ/L 29.2 MEQ/L Anion Gap 7 MEQ/L 6 MEQ/L Estimat Glomerular Filtration Rate 110 ML/MIN 136 ML/MIN Lactic Acid Level 2.3 mmol/L 0.8 mmol/L Phosphorus Level 2.7 MG/DL Total Creatine Kinase 134 U/L Thyroid Stimulating Hormone 3rd Gen 5.470 uIU/ML Microbiology Date/Time Source Procedure Growth Status 03/14/18 17:52 Blood Peripheral Aerobic Blood Culture - Preliminary NO GROWTH IN 2 DAYS Resulted 03/14/18 17:52 Blood Peripheral Anaerobic Blood Culture - Preliminary NO GROWTH IN 2 DAYS Resulted 03/14/18 17:40 Blood Peripheral Aerobic Blood Culture - Preliminary NO GROWTH IN 2 DAYS Resulted 03/14/18 17:40 Blood Peripheral Anaerobic Blood Culture - Preliminary NO GROWTH IN 2 DAYS Resulted 03/15/18 21:58 Urine Random Urine Legionella Antigen - Final PRESUMPTIVE NEGATIVE FOR LEGIONELLA P... Complete 03/15/18 21:58 Urine Random Urine Streptococcus pneumoniae Antigen (M - Final PRESUMPTIVE NEGATIVE FOR STREPTOCOCCU... Complete 03/14/18 18:37 Urine Catheterized Urine Urine Culture - Final Corynebacterium Sp Complete Imaging Last Impressions Abdomen/Pelvis CT 03/15/18 0000 Signed Impressions: CONCLUSION: 1. Significant interval progression of rectal mass with interval invasion of n early the entire sacrum and adjacent gluteal musculature. Retroperitoneal adeno suzanna. Otherwise, no gross distant metastatic disease. 2. Right lung base airspace consolidation. Cannot exclude pneumonia or aspirat ion in the appropriate clinical setting. ` Chest X-Ray 03/14/18 1743 Signed Impressions: CONCLUSION: Hyperinflation otherwise negative. CT Angiography 03/14/18 0000 Signed Impressions: CONCLUSION: 1. Probable airspace disease right lower lobe consistent with an inflammatory process. 2. Large gallstone Physical Exam CONSTITUTIONAL/GENERAL: This is a thin undernourished male , in no apparent distress. TUBES/LINES/DRAINS: SKIN: No jaundice, rashes, or lesions. EYES: Pupils equal and round and reactive. Extraocular motions intact. No scleral icterus. No injection or drainage. Fundi not examined. ENT: Hearing grossly normal. Nose without bleeding or purulent drainage. Throat without visible erythema, exudates, masses, or lesions. poor dentition CARDIOVASCULAR: Regular rate and rhythm without murmurs, gallops, or rubs. No JVD. Peripheral pulses symmetric. RESPIRATORY/CHEST: Symmetric, unlabored respirations. Clear to auscultation. Breath sounds equal bilaterally. No wheezes, rales, or rhonchi. GASTROINTESTINAL: Abdomen soft, non-tender, nondistended. No hepato-splenomegaly , or palpable masses. No guarding. Bowel sounds present. stoma in place LLQ with semiformed stool GENITOURINARY: Without palpable bladder distension. Chaidez catheter in place with clear yellow urine MUSCULOSKELETAL: Extremities without clubbing, cyanosis, or edema. No joint tenderness or effusion noted. No calf tenderness. No mottling or clubbing. NEUROLOGICAL: Awake and alert. Motor and sensory grossly within normal limits. Follows commands. Somewhat incoherent speech. Moves all extremities. PSYCHIATRIC: calm. Flat affect Assessment & Plan Remarks REctal cancer with mets, large tumor undergoing XRT Leukocytosis Obstructive uropathy Supected earlier UTI, clx not c/w UTI ? PNA RLE vs ATX cont zosyn dc vanco fu blood and urine clx fu clinically fu WBC fu clinically Tiffanie Ann MD March 16, 2018 12:57
[2018-03-16] MEDS: HYDROmorphone HCL 2 MG TAB PO PRN (14:06)
[2018-03-16] MEDS: ENOXAPARIN SODIUM 40 MG/0.4 ML SYRINGE SQ SCH (21:11)
[2018-03-16] MEDS: NORTRIPTYLINE HCL 25 MG CAP PO SCH (21:12)
[2018-03-17] VITALS (9 sets, daily range): BP systolic 98–122; BP diastolic 41–67; PULSE 75–91; RESP 16–18; TEMP 97.2–100.2; O2SAT 91–93
[2018-03-17] MEDS: SODIUM CHLOR 0.9% 1000 ML INJ 1,000 ML IV SCH ×3 (01:15→19:52)
[2018-03-17] MEDS: PIPERACIL-TAZO 3.375 GM PREMIX 50 ML IV SCH ×4 (01:15→20:16)
[2018-03-17] MEDS: VALPROIC ACID 250 MG CAP PO SCH ×3 (04:15→20:20)
[2018-03-17 06:56] LABS: AUTOMATED NEUTROPHIL # 14.1 TH/MM3 (1.8-7.7); BASOPHIL # 0.1 TH/MM3 (0-0.2); BASOPHIL % 0.3 % (0.0-2.0); EOSINOPHIL # 0.1 TH/MM3 (0-0.4); EOSINOPHIL % 0.4 % (0.0-4.0); HEMATOCRIT 23.8 % (39.0-51.0); HEMOGLOBIN 7.8 GM/DL (13.0-17.0); LYMPH % 4.9 % (9.0-44.0); LYMPHOCYTE # 0.8 TH/MM3 (1.0-4.8); MEAN CELL VOLUME 89.9 FL (80.0-100.0); MEAN CORPUSCULAR HEMOGLOBIN 29.6 PG (27.0-34.0); MEAN CORPUSCULAR HGB CONC 32.9 % (32.0-36.0); MEAN PLATELET VOLUME 7.1 FL (7.0-11.0); MONO % 9.4 % (0.0-8.0); MONOCYTE # 1.6 TH/MM3 (0-0.9); PLATELET COUNT 335 TH/MM3 (150-450); RED BLOOD COUNT 2.64 MIL/MM3 (4.50-5.90); RED CELL DISTRIBUTION WIDTH 19.3 % (11.6-17.2); WHITE BLOOD COUNT 16.6 TH/MM3 (4.0-11.0)
[2018-03-17 07:13] LABS: ALBUMIN 1.3 GM/DL (3.4-5.0); AST (GOT) 51 U/L (15-37); BICARBONATE 27.5 MEQ/L (21.0-32.0); BLOOD UREA NITROGEN 7 MG/DL (7-18); CALCIUM 9.2 MG/DL (8.5-10.1); CHLORIDE 105 MEQ/L (98-107); CREATININE 0.51 MG/DL (0.60-1.30); GLOMERULAR FILTRATION RATE 180 ML/MIN (>89); GLUCOSE,RANDOM 87 MG/DL (74-106); MAGNESIUM 1.7 MG/DL (1.5-2.5); SODIUM (NA) 140 MEQ/L (136-145)
[2018-03-17 07:14] LABS: ALT (GPT) 10 U/L (12-78)
[2018-03-17 07:23] LABS: ALKALINE PHOSPHATASE 89 U/L (45-117); FREE T4 0.95 NG/DL (0.76-1.46); PHOSPHORUS 2.3 MG/DL (2.5-4.9); TOTAL BILIRUBIN ADULT 0.2 MG/DL (0.2-1.0); TOTAL PROTEIN 5.2 GM/DL (6.4-8.2)
[2018-03-17] MEDS ORDERED: PHARMACY ORDERED LAB ONE (07:45)
--- NOTE | 2018-03-17 09:20 | PD.ONC.PN ---
Subjective Subjective Remarks Tmax 100.2 overnight. Patient wants to go home. he denies dizziness. states he feels better. Objective Data Date Time Temp Pulse Resp B/P (MAP) Pulse Ox O2 Delivery O2 Flow Rate FiO2 03/17/18 08:00 97.2 89 16 107/63 (78) 92 03/17/18 06:00 100.1 03/17/18 04:00 99.0 91 16 122/51 (74) 93 03/17/18 04:00 91 03/17/18 00:00 100.2 90 16 107/57 (74) 92 03/17/18 00:00 77 03/16/18 20:00 98.3 86 16 106/57 (73) 95 03/16/18 20:00 78 03/16/18 16:00 97.8 65 16 93/54 (67) 91 03/16/18 16:00 76 03/16/18 12:00 97.7 76 18 93/55 (68) 94 03/16/18 10:44 77 03/17/18 03/17/18 03/17/18 07:00 15:00 23:00 Intake Total 3060 ml Output Total 1650 ml Balance 1410 ml Result Diagram: 03/17/18 0614 03/17/18 0614 Laboratory Results Laboratory Tests Test 03/17/18 06:14 White Blood Count 16.6 TH/MM3 Red Blood Count 2.64 MIL/MM3 Hemoglobin 7.8 GM/DL Hematocrit 23.8 % Mean Corpuscular Volume 89.9 FL Mean Corpuscular Hemoglobin 29.6 PG Mean Corpuscular Hemoglobin Concent 32.9 % Red Cell Distribution Width 19.3 % Platelet Count 335 TH/MM3 Mean Platelet Volume 7.1 FL Neutrophils (%) (Auto) 85.0 % Lymphocytes (%) (Auto) 4.9 % Monocytes (%) (Auto) 9.4 % Eosinophils (%) (Auto) 0.4 % Basophils (%) (Auto) 0.3 % Neutrophils # (Auto) 14.1 TH/MM3 Lymphocytes # (Auto) 0.8 TH/MM3 Monocytes # (Auto) 1.6 TH/MM3 Eosinophils # (Auto) 0.1 TH/MM3 Basophils # (Auto) 0.1 TH/MM3 CBC Comment DIFF FINAL Differential Comment Blood Urea Nitrogen 7 MG/DL Creatinine 0.51 MG/DL Random Glucose 87 MG/DL Total Protein 5.2 GM/DL Albumin 1.3 GM/DL Calcium Level 9.2 MG/DL Phosphorus Level 2.3 MG/DL Magnesium Level 1.7 MG/DL Alkaline Phosphatase 89 U/L Aspartate Amino Transf (AST/SGOT) 51 U/L Alanine Aminotransferase (ALT/SGPT) 10 U/L Total Bilirubin 0.2 MG/DL Sodium Level 140 MEQ/L Potassium Level 3.8 MEQ/L Chloride Level 105 MEQ/L Carbon Dioxide Level 27.5 MEQ/L Anion Gap 8 MEQ/L Estimat Glomerular Filtration Rate 180 ML/MIN Free Thyroxine 0.95 NG/DL Thyroid Stimulating Hormone 3rd Gen 6.030 uIU/ML Culture Results Microbiology Date/Time Source Procedure Growth Status 03/14/18 17:52 Blood Peripheral Aerobic Blood Culture - Preliminary NO GROWTH IN 2 DAYS Resulted 03/14/18 17:52 Blood Peripheral Anaerobic Blood Culture - Preliminary NO GROWTH IN 2 DAYS Resulted 03/14/18 17:40 Blood Peripheral Aerobic Blood Culture - Preliminary NO GROWTH IN 2 DAYS Resulted 03/14/18 17:40 Blood Peripheral Anaerobic Blood Culture - Preliminary NO GROWTH IN 2 DAYS Resulted 03/15/18 21:58 Urine Random Urine Legionella Antigen - Final PRESUMPTIVE NEGATIVE FOR LEGIONELLA P... Complete 03/15/18 21:58 Urine Random Urine Streptococcus pneumoniae Antigen (M - Final PRESUMPTIVE NEGATIVE FOR STREPTOCOCCU... Complete 03/14/18 18:37 Urine Catheterized Urine Urine Culture - Final Corynebacterium Sp Complete Administered Medications Medications (Trade) Dose Ordered Sig/Mega Route PRN Reason Start Time Stop Time Status Last Admin Dose Admin Sodium Chloride 1,000 ml @ 100 mls/hr Q10H IV 03/14/18 20:59 03/17/18 01:15 Sodium Chloride (NS Flush) 2 ml UNSCH PRN IV FLUSH FLUSH AFTER USING IV ACCESS 03/14/18 21:00 03/15/18 06:35 Sodium Chloride (NS Flush) 2 ml BID IV FLUSH 03/14/18 21:00 03/16/18 21:20 Enoxaparin Sodium (Lovenox Inj) 40 mg Q24H SQ 03/14/18 22:00 03/16/18 21:11 Senna/Docusate Sodium (Betty-Colace) 1 tab BID PO 03/14/18 21:00 03/16/18 21:12 Sennosides (Senokot) 17.2 mg Q12H PRN PO Moderate constipation 03/14/18 21:00 03/16/18 21:17 Aripiprazole (Abilify) 5 mg DAILY PO 03/15/18 09:00 03/16/18 08:55 Famotidine (Pepcid) 20 mg Q12HR PO 03/15/18 09:00 03/16/18 21:12 Gabapentin (Neurontin) 200 mg TID PO 03/15/18 09:00 03/16/18 18:12 Hydroxyzine HCl (Atarax) 50 mg TID PO 03/15/18 09:00 03/16/18 18:12 Nortriptyline HCl (Pamelor) 25 mg HS PO 03/15/18 21:00 03/16/18 21:12 Propranolol HCl (Inderal) 20 mg Q12HR PO 03/15/18 09:00 03/16/18 21:12 Risperidone (risperDAL M-TAB) 3 mg Q12HR PO 03/15/18 09:00 03/16/18 21:12 Valproic Acid (Depakene) 500 mg Q8HR PO 03/14/18 22:00 03/17/18 04:15 Hydromorphone HCl (Dilaudid) 2 mg Q8H PRN PO Pain Management 1-10 03/15/18 14:45 03/16/18 14:06 Morphine Sulfate (Oramorph Sr) 15 mg BID PO 03/15/18 21:00 03/16/18 21:12 Alprazolam (Xanax) 0.5 mg Q8H PRN PO anxiety 03/15/18 15:00 03/16/18 18:12 Piperacillin Sod/ Tazobactam Sod 50 ml @ 100 mls/hr Q6H IV 03/15/18 20:00 03/17/18 01:15 Objective Remarks GENERAL: young man, cachetic in appearance, lying supine in bed watching TV SKIN: Warm and dry. HEAD: Normocephalic. EYES: No injection or drainage. NECK: Supple, trachea midline. CARDIOVASCULAR: Regular rate and rhythm RESPIRATORY: Breath sounds equal bilaterally. No accessory muscle use. GASTROINTESTINAL: Abdomen soft, non-tender, nondistended. +colostomy bag in place, soft brown stool in bag EXTREMITIES: No cyanosis MUSCULOSKELETAL: muscle wasting noted throughout, but especially bilateral lower extremities. NEUROLOGICAL: awake and alert. normal speech. Assessment/Plan Problem List: (1) Colorectal cancer ICD Codes: C19 - Malignant neoplasm of rectosigmoid junction Plan: plan to start concurrent xeloda/xrt outpatient (2) Normocytic anemia ICD Codes: D64.9 - Anemia, unspecified Plan: --likely d/t blood loss from tumor --previously had intermittent bloody urine. --may also be component of inflammation, will check iron studies pre- transfusion. --s/p 2 units pRBC during this hospitalization. Assessment 42y/o male with locally advanced colorectal cancer admitted with dizziness. history of schizoaffective disorder, bipolar type. h/o COPD, peripheral neuropathy, right basilic vein deep vein thromboses, locally advanced perforated rectal cancer, gluteal and pelvic abscess, status post debridement, right thigh abscess, chronic anemia. h/o laparoscopic loop colostomy, colonoscopy, rectal biopsy, irrigation and debridement right thigh split-thickness skin graft, irrigation and debridement right hip, right thigh, right knee with would closure and wound VAC placement, skin graft placement. Plan 1. check iron studies. 2. patient may need another blood transfusion 3. continue antibiotics per infectious disease. 4. patient can be discharged when cleared by ID Attending Statement The exam, history, and the medical decision-making described in the above note were completed with the assistance of the mid-level provider. I reviewed and agree with the findings presented. I attest that I had a [id number] encounter with the patient on the same day, and personally performed and documented my assessment and findings in the medical record. Complex problem of perforated rectal cancer with abscess/infection, urinary obstruction->aguirre. Did not respond to Xeloda single agent. Pending to start XRT/Xeloda when course complicated by dehydration, dizziness, fevers, symptomatic anemia, possible infection. Abx continue per ID. Discussed tx options for colon cancer, clear progression on CT/PET earlier and the Ct scan this admisssion. Discussed infusional chemo therapy for palliation of colon cancer previously, pt decline, no wanting a port or infusional chemo treatment. Treatment is palliative. Brunilda Nieto Mar 17, 2018 09:20 Jihan Webber MD Mar 17, 2018 19:18
[2018-03-17] MEDS: risperiDONE ODT 3 MG TAB PO SCH ×2 (09:44→20:19)
[2018-03-17] MEDS: hydrOXYzine HCL 50 MG TAB PO SCH ×3 (09:44→19:51)
[2018-03-17] MEDS: DOCUSATE SODIUM 50 MG/SENNA 8.6 MG TAB PO SCH ×2 (09:44→20:23)
[2018-03-17] MEDS: FAMOTIDINE 20 MG TAB PO SCH ×2 (09:45→20:22)
[2018-03-17] MEDS: SODIUM CHLORIDE 0.9% FLUSH 10 ML FLUSH IV FLUSH SCH ×2 (09:45→20:23)
[2018-03-17] MEDS: GABAPENTIN 100 MG CAP PO SCH ×3 (09:45→19:51)
[2018-03-17] MEDS: MORPHINE SULFATE 15 MG CONTROLLED RELEASE TAB PO SCH ×2 (09:45→20:18)
[2018-03-17] MEDS: PROPRANOLOL HCL 20 MG TAB PO SCH ×2 (09:45→20:19)
[2018-03-17 10:14] LABS: RETIC # 31.2 MIL/L (20.0-150.0); RETIC % 1.2 % (0.4-3.0)
[2018-03-17] MEDS: ARIPiprazole 5 MG TAB PO SCH ×2 (10:34→13:55)
--- NOTE | 2018-03-17 10:47 | HHI.PR ---
Subjective Remarks 42-year-old white male being admitted for weakness likely secondary to pneumonia. Patient is a poor historian, history is obtained from patient and emergency room records and the patient's turner in by phone. Patient was apparently referred to the emergency department for looking very "pale" and weak after undergoing a radiation treatment session yesterday. Patient himself cannot specify exactly why he was referred. In the emergency department he was noted to have a white count around 16,000 and hemoglobin of 8.5. CT angiogram was performed of the chest which showed mild infiltrates at best in the right upper lobe suggestive of pneumonia. There are no fevers noted. Patient himself denies any nausea vomiting fevers or chills. He does report having a productive cough which is somewhat worse than usual. When I informed him that he was found to be weak, he denies being weak at all., Says he feels great in terms of his overall strength level. Discussed case with Dr. Nieves who relayed that the patient had a history where he was initially found to have pelvic abscesses that were secondary to a perforation by his rectal cancer, all found in reverse order. He has been seen by Dr. Allan from infectious disease as well as Dr. Torres from colorectal surgery, has a colostomy bag. 03-16 COLOSTOMY BAG IS LEAKING CONTINUE ANTIBIOTICS HAVING GOOD AMOUNT OF STOOLS DW RN AND PT AND ONCOLOGY AND ID AND CM AM LABS MONITOR 03-17 STILL HAVING COLOSTOMY BAG ISSUES DW RN AND PT AND ONCOLOGY AM LABS INCREASE ACTIVITY PT AND OT START PO SYNTHROID FOR HYPOTHYROIDISM Objective Vitals Vital Signs Date Time Temp Pulse Resp B/P (MAP) Pulse Ox O2 Delivery O2 Flow Rate FiO2 03/17/18 08:00 97.2 89 16 107/63 (78) 92 03/17/18 06:00 100.1 03/17/18 04:00 99.0 91 16 122/51 (74) 93 03/17/18 04:00 91 03/17/18 00:00 100.2 90 16 107/57 (74) 92 03/17/18 00:00 77 03/16/18 20:00 98.3 86 16 106/57 (73) 95 03/16/18 20:00 78 03/16/18 16:00 97.8 65 16 93/54 (67) 91 5/31/18 16:00 76 03/16/18 12:00 97.7 76 18 93/55 (18) 94 I/O 03/16/18 03/16/18 03/16/18 03/17/18 03/17/18 03/17/18 07:00 15:00 23:00 07:00 15:00 23:00 Intake Total 2362.5 ml 362.5 ml 650 ml 3060 ml Output Total 3500 ml 2000 ml 1650 ml Balance -1137.5 ml 362.5 ml -1350 ml 1410 ml Intake Oral 1200 ml 600 ml 1440 ml IV Total 362.5 ml 362.5 ml 50 ml 1620 ml Packed Cells 800 ml Output Urine Total 3500 ml 1700 ml 1650 ml Stool Total 300 ml # Bowel Movements 1 Result Diagram: 03/17/18 0614 03/17/18 0614 Other Results Laboratory Tests Test 03/14/18 17:51 03/14/18 17:57 03/14/18 18:37 03/14/18 21:40 White Blood Count 16.4 TH/MM3 Red Blood Count 2.75 MIL/MM3 Hemoglobin 8.3 GM/DL Hematocrit 25.3 % Mean Corpuscular Volume 92.0 FL Mean Corpuscular Hemoglobin 30.1 PG Mean Corpuscular Hemoglobin Concent 32.7 % Red Cell Distribution Width 20.4 % Platelet Count 408 TH/MM3 Mean Platelet Volume 7.3 FL Neutrophils (%) (Auto) 85.8 % Lymphocytes (%) (Auto) 5.0 % Monocytes (%) (Auto) 8.8 % Eosinophils (%) (Auto) 0.1 % Basophils (%) (Auto) 0.3 % Neutrophils # (Auto) 14.1 TH/MM3 Lymphocytes # (Auto) 0.8 TH/MM3 Monocytes # (Auto) 1.4 TH/MM3 Eosinophils # (Auto) 0.0 TH/MM3 Basophils # (Auto) 0.0 TH/MM3 CBC Comment DIFF FINAL Differential Comment Prothrombin Time 11.8 SEC Prothromb Time International Ratio 1.2 RATIO Activated Partial Thromboplast Time 29.3 SEC Blood Urea Nitrogen 13 MG/DL Creatinine 0.78 MG/DL Random Glucose 102 MG/DL Total Protein 7.1 GM/DL Albumin 2.0 GM/DL Calcium Level 10.5 MG/DL Magnesium Level 2.1 MG/DL Alkaline Phosphatase 69 U/L Aspartate Amino Transf (AST/SGOT) 79 U/L Alanine Aminotransferase (ALT/SGPT) 12 U/L Total Bilirubin 0.2 MG/DL Sodium Level 132 MEQ/L Potassium Level 4.2 MEQ/L Chloride Level 93 MEQ/L Carbon Dioxide Level 32.3 MEQ/L Anion Gap 7 MEQ/L Estimat Glomerular Filtration Rate 110 ML/MIN Lactic Acid Level 2.3 mmol/L 0.8 mmol/L Urine Color YELLOW Urine Turbidity HAZY Urine pH 6.5 Urine Specific [place] 1.012 Urine Protein 100 mg/dL Urine Glucose (UA) NEG mg/dL Urine Ketones NEG mg/dL Urine Occult Blood MOD Urine Nitrite NEG Urine Bilirubin NEG Urine Urobilinogen LESS THAN 2.0 MG/DL Urine Leukocyte Esterase LARGE Urine RBC 18 /hpf Urine WBC 87 /hpf Urine Squamous Epithelial Cells 1 /hpf Urine Bacteria OCC /hpf Urine Mucus FEW /lpf Microscopic Urinalysis Comment CATH-CULTURE IND Test 03/15/18 05:35 03/16/18 07:50 03/17/18 06:14 White Blood Count 16.2 TH/MM3 17.5 TH/MM3 16.6 TH/MM3 Red Blood Count 2.39 MIL/MM3 2.90 MIL/MM3 2.64 MIL/MM3 Hemoglobin 7.1 GM/DL 8.8 GM/DL 7.8 GM/DL Hematocrit 22.0 % 26.6 % 23.8 % Mean Corpuscular Volume 92.4 FL 91.6 FL 89.9 FL Mean Corpuscular Hemoglobin 29.6 PG 30.2 PG 29.6 PG Mean Corpuscular Hemoglobin Concent 32.0 % 33.0 % 32.9 % Red Cell Distribution Width 20.6 % 20.0 % 19.3 % Platelet Count 349 TH/MM3 308 TH/MM3 335 TH/MM3 Mean Platelet Volume 7.3 FL 7.1 FL 7.1 FL Neutrophils (%) (Auto) 85.7 % 86.6 % 85.0 % Lymphocytes (%) (Auto) 4.0 % 4.7 % 4.9 % Monocytes (%) (Auto) 9.8 % 7.8 % 9.4 % Eosinophils (%) (Auto) 0.2 % 0.4 % 0.4 % Basophils (%) (Auto) 0.3 % 0.5 % 0.3 % Neutrophils # (Auto) 13.9 TH/MM3 15.1 TH/MM3 14.1 TH/MM3 Lymphocytes # (Auto) 0.6 TH/MM3 0.8 TH/MM3 0.8 TH/MM3 Monocytes # (Auto) 1.6 TH/MM3 1.4 TH/MM3 1.6 TH/MM3 Eosinophils # (Auto) 0.0 TH/MM3 0.1 TH/MM3 0.1 TH/MM3 Basophils # (Auto) 0.1 TH/MM3 0.1 TH/MM3 0.1 TH/MM3 CBC Comment DIFF FINAL DIFF FINAL DIFF FINAL Differential Comment Blood Urea Nitrogen 10 MG/DL 7 MG/DL Creatinine 0.65 MG/DL 0.51 MG/DL Random Glucose 81 MG/DL 87 MG/DL Total Protein 6.1 GM/DL 5.2 GM/DL Albumin 1.8 GM/DL 1.3 GM/DL Calcium Level 9.9 MG/DL 9.2 MG/DL Alkaline Phosphatase 61 U/L 89 U/L Aspartate Amino Transf (AST/SGOT) 66 U/L 51 U/L Alanine Aminotransferase (ALT/SGPT) 9 U/L 10 U/L Total Bilirubin 0.2 MG/DL 0.2 MG/DL Sodium Level 136 MEQ/L 140 MEQ/L Potassium Level 3.8 MEQ/L 3.8 MEQ/L Chloride Level 101 MEQ/L 105 MEQ/L Carbon Dioxide Level 29.2 MEQ/L 27.5 MEQ/L Anion Gap 6 MEQ/L 8 MEQ/L Estimat Glomerular Filtration Rate 136 ML/MIN 180 ML/MIN Phosphorus Level 2.7 MG/DL 2.3 MG/DL Total Creatine Kinase 134 U/L Thyroid Stimulating Hormone 3rd Gen 5.470 uIU/ML 6.030 uIU/ML Reticulocyte Count 1.2 % Absolute Reticulocyte Count 31.2 MIL/L Magnesium Level 1.7 MG/DL Free Thyroxine 0.95 NG/DL Imaging Last Impressions Abdomen/Pelvis CT 03/15/18 0000 Signed Impressions: CONCLUSION: 1. Significant interval progression of rectal mass with interval invasion of n early the entire sacrum and adjacent gluteal musculature. Retroperitoneal adeno suzanna. Otherwise, no gross distant metastatic disease. 2. Right lung base airspace consolidation. Cannot exclude pneumonia or aspirat ion in the appropriate clinical setting. ` Chest X-Ray 03/14/18 1743 Signed Impressions: CONCLUSION: Hyperinflation otherwise negative. CT Angiography 03/14/18 0000 Signed Impressions: CONCLUSION: 1. Probable airspace disease right lower lobe consistent with an inflammatory process. 2. Large gallstone Objective Remarks GENERAL: Awake and alert and oriented 3 talkative and cooperative SKIN: Warm and dry. Colostomy on abdomen full stage sacral ulcer wound w/ no signs of infected surrounding skin tissue HEAD: Atraumatic. Normocephalic. EYES: Pupils equal and round. No scleral icterus. No injection or drainage. Extraocular muscles intact ENT: No nasal bleeding or discharge. Mucous membranes pink and moist. Tongue is midline NECK: Trachea midline. No JVD. CARDIOVASCULAR: Regular rate and rhythm. S1-S2 no S3 or S4 RESPIRATORY: No accessory muscle use. Clear to auscultation. Breath sounds equal bilaterally. GASTROINTESTINAL: Abdomen soft, non-tender, nondistended. Hepatic and splenic margins not palpable. Colostomy SITE LEAKING MUSCULOSKELETAL: Extremities without clubbing, cyanosis, or edema. No obvious deformities. NEUROLOGICAL: Awake and alert. No obvious cranial nerve deficits. Motor grossly within normal limits. 4 out of 5 muscle strength in the arms and legs. Normal speech. PSYCHIATRIC: INAppropriate mood and affect; insight and judgment ABnormal. Procedures NONE Medications and IVs Current Medications Sodium Chloride 1,000 ml @ 999 mls/hr BOLUS ONCE IV Last administered on 03/14 18:08; Start 03/14/18 at 17:45; Stop 03/14/18 at 18:45; Status DC Sodium Chloride 1,000 ml @ 999 mls/hr BOLUS ONCE IV Last administered on 03/14 18:08; Start 03/14/18 at 17:45; Stop 03/14/18 at 18:45; Status DC Morphine Sulfate (Morphine Inj) 4 mg ONCE ONCE IV PUSH Last administered on 18:07; Start 03/14/18 at 17:45; Stop 03/15/18 at 14:39; Status DC Metoclopramide HCl (Reglan Inj) 10 mg ONCE ONCE IV PUSH Last administered on 18:07; Start 03/14/18 at 17:45; Stop 03/14/18 at 17:46; Status DC Cefepime HCl 2000 mg/Sodium Chloride 100 ml @ 200 mls/hr ONCE STAT IV Last administered on 03/14/18at 19:42; Start 03/14/18 at 19:10; Stop 03/14/18 at 19:39 ; Status DC Iohexol (Omnipaque 350 Inj) 75 ml STK-MED ONCE IVCONTRAST Last administered on 03/14/18 20:24; Start 03/14/18 at 20:24; Stop 03/14/18 at 20:25; Status DC Azithromycin 500 mg/Sodium Chloride 250 ml @ 250 mls/hr ONCE ONCE IV Last administered on 03/14/18 21:03; Start 03/14/18 at 20:45; Stop 03/14/18 at 21:44 ; Status DC Sodium Chloride 1,000 ml @ 100 mls/hr Q10H IV Last administered on 03/17/18 09 :46; Start 03/14/18 at 20:59 Sodium Chloride (NS Flush) 2 ml UNSCH PRN IV FLUSH FLUSH AFTER USING IV ACCESS Last administered on 03/15/18 06:35; Start 03/14/18 at 21:00 Sodium Chloride (NS Flush) 2 ml BID IV FLUSH Last administered on 03/17/18 09: 45; Start 03/14/18 at 21:00 Acetaminophen (Tylenol) 650 mg Q4H PRN PO TEMP > 100.4; Start 03/14/18 at 21:00 Enoxaparin Sodium (Lovenox Inj) 40 mg Q24H SQ Last administered on 03/16/18 21 :11; Start 03/14/18 at 22:00 Naloxone HCl (Narcan Inj) 0.4 mg UNSCH PRN IV PUSH SEE LABEL COMMENTS; Start at 21:00 Senna/Docusate Sodium (Betty-Colace) 1 tab BID PO Last administered on 03/17/18 09:44; Start 03/14/18 at 21:00 Magnesium Hydroxide (Milk Of Magnesia Liq) 30 ml Q12H PRN PO Mild constipation ; Start 03/14/18 at 21:00 Sennosides (Senokot) 17.2 mg Q12H PRN PO Moderate constipation Last administered on 03/16/18 21:17; Start 03/14/18 at 21:00 Bisacodyl (Dulcolax Supp) 10 mg DAILY PRN RECTAL SEVERE CONSITIPATION; Start at 21:00 Lactulose (Lactulose Liq) 30 ml DAILY PRN PO SEVERE CONSITIPATION; Start at 21:00 Promethazine HCl (Phenergan) 12.5 mg Q6H PRN PO NAUSEA OR VOMITING; Start 03/14 at 21:00 Morphine Sulfate (Morphine Inj) 2 mg Q3H PRN IV PUSH PAIN SCALE 6-10 OR SEVERE SOB Last administered on 03/15/18 12:31; Start 03/14/18 at 21:30; Stop at 14:39; Status DC Aripiprazole (Abilify) 5 mg DAILY PO Last administered on 03/17/18 10:34; Start 03/15/18 at 09:00 Famotidine (Pepcid) 20 mg Q12HR PO Last administered on 03/17/18 09:45; Start 03/15/18 at 09:00 Gabapentin (Neurontin) 200 mg TID PO Last administered on 03/17/18 09:45; Start 03/15/18 at 09:00 Hydroxyzine HCl (Atarax) 50 mg TID PO Last administered on 03/17/18 09:44; Start 03/15/18 at 09:00 Nortriptyline HCl (Pamelor) 25 mg HS PO Last administered on 03/16/18 21:12; Start 03/15/18 at 21:00 Propranolol HCl (Inderal) 20 mg Q12HR PO Last administered on 03/17/18 09:45; Start 03/15/18 at 09:00 Risperidone (risperDAL M-TAB) 3 mg Q12HR PO Last administered on 03/17/18 09:44 ; Start 03/15/18 at 09:00 Valproic Acid (Depakene) 500 mg Q8HR PO Last administered on 03/17/18 04:15; Start 03/14/18 at 22:00 Hydromorphone HCl (Dilaudid) 2 mg Q8H PRN PO Pain Management 1-10 Last administered on 03/16/18 14:06; Start 03/15/18 at 14:45 Morphine Sulfate (Oramorph Sr) 15 mg BID PO Last administered on 03/17/18 09:45 ; Start 03/15/18 at 21:00 Alprazolam (Xanax) 0.5 mg Q8H PRN PO anxiety Last administered on 03/16/18at 18: 12; Start 03/15/18 at 15:00 Cefepime HCl 2000 mg/Sodium Chloride 100 ml @ 200 mls/hr Q8H IV Last administered on 03/15/18at 17:03; Start 03/15/18 at 16:00; Stop 03/15/18 at 19:05 ; Status DC Sodium Chloride 250 ml @ 15 mls/hr ONCE ONCE IV Last administered on at 02:00; Start 03/15/18 at 16:45; Stop 03/16/18 at 09:24; Status DC Piperacillin Sod/ Tazobactam Sod 50 ml @ 100 mls/hr Q6H IV Last administered on 03/17/18at 09:43; Start 03/15/18 at 20:00 Pharmacy Profile Note 0 ml @ 0 mls/hr UNSCH OTHER ; Start 03/15/18 at 19:15; Stop 03/16/18 at 13:00; Status DC Diatrizoate Meglum/ Diatrizoate Sod ( Gastroview Liq) 18 ml ONCE ONCE PO Last administered on 03/15/18at 19:51; Start 03/15/18 at 19:15; Stop 03/15/18 at 19:16; Status DC Vancomycin HCl 1250 mg/Sodium Chloride 262.5 ml @ 250 mls/hr Q12H IV Last administered on 03/16/18at 10:27; Start 03/15/18 at 20:00; Stop 03/16/18 at 13:00 ; Status DC Miscellaneous Information ([facility] [place] [facility] Ordered Lab Info) SPECIFIC LAB TO BE ... ONCE ONCE .XX ; Start 03/17/18 at 07:45; Stop 03/17/18 at 07:46; Status DC A/P Assessment and Plan 42-year-old white male admitted for weakness likely secondary to pneumonia Pneumonia -Status post azithromycin and cefepime emergency department. Given that he is immunocompromised we will continue cefepime and consider adding on vancomycin. Infectious disease had been consulted by original admitting team -Urinary pneumococcal and Legionella antigens -cbc in AM Weakness -infx vs cancer vs malnutrition and anemia -Fall precautions -PT/OT -Obtain magnesium, TSH, CK, phosphorus levels pyuria - f/u UC, on abx, on aguirre presumably for obstructive uropathy rectal cancer (w/ h/o perforation and abscesses) -heme/onc consulted anemia -trend, like 2/2 chronic dx -will transfuse for now stage 4 sacral decubitus/unstageable sacral - wound care; possible invasion of cancer towards this, unclear at this time per oncology Chronic pain -Continue home pain medications, stop IV pain medications Schizoaffective disorder -Continue home medications HYPOTHYROIDISM START SYNTHROID 25MCG PO DAILY SCDs for now given low h/h AM LABS Discharge Planning Pending improvement Rodrick Clifford DO Mar 17, 2018 10:47
[2018-03-17] MEDS ORDERED: LEVOTHYROXINE SODIUM 25 MCG TAB PO ONE (11:00)
[2018-03-17 11:12] LABS: % SATURATION IRON PROFILE 11.5 % (20-50); IRON (FE) 16 MCG/DL (65-175); TOTAL IRON BINDING CAPACITY 139 MCG/DL (250-450)
[2018-03-17 11:14] LABS: FERRITIN 847 NG/ML (26-388)
[2018-03-17] MEDS: ALPRAZolam 0.5 MG TAB PO PRN (16:10)
[2018-03-17 16:25] LABS: HEMOGLOBIN A1C 5.2 % (4.3-6.0)
[2018-03-17] MEDS: NORTRIPTYLINE HCL 25 MG CAP PO SCH (20:23)
[2018-03-17] MEDS: ENOXAPARIN SODIUM 40 MG/0.4 ML SYRINGE SQ SCH (20:28)
[2018-03-18] VITALS (20 sets, daily range): BP systolic 91–118; BP diastolic 52–69; PULSE 67–88; RESP 16–18; TEMP 98–100.1; O2SAT 92–95
[2018-03-18] MEDS: PIPERACIL-TAZO 3.375 GM PREMIX 50 ML IV SCH ×4 (02:03→20:32)
[2018-03-18] MEDS: VALPROIC ACID 250 MG CAP PO SCH ×3 (05:21→20:39)
[2018-03-18] MEDS: ALPRAZolam 0.5 MG TAB PO PRN ×2 (05:21→14:26)
[2018-03-18] MEDS: LEVOTHYROXINE SODIUM 25 MCG TAB PO SCH (05:22)
[2018-03-18] MEDS: SODIUM CHLOR 0.9% 1000 ML INJ 1,000 ML IV SCH ×2 (05:22→17:28)
[2018-03-18] MEDS: PROPRANOLOL HCL 20 MG TAB PO SCH ×2 (09:17→20:34)
[2018-03-18] MEDS: FAMOTIDINE 20 MG TAB PO SCH ×2 (09:18→20:34)
[2018-03-18] MEDS: GABAPENTIN 100 MG CAP PO SCH ×3 (09:18→17:25)
[2018-03-18] MEDS: ARIPiprazole 5 MG TAB PO SCH (09:18)
[2018-03-18] MEDS: MORPHINE SULFATE 15 MG CONTROLLED RELEASE TAB PO SCH ×2 (09:18→20:34)
[2018-03-18] MEDS: DOCUSATE SODIUM 50 MG/SENNA 8.6 MG TAB PO SCH ×2 (09:18→20:34)
[2018-03-18] MEDS: risperiDONE ODT 3 MG TAB PO SCH ×2 (09:18→20:34)
[2018-03-18] MEDS: hydrOXYzine HCL 50 MG TAB PO SCH ×3 (09:18→17:25)
[2018-03-18] MEDS: SODIUM CHLORIDE 0.9% FLUSH 10 ML FLUSH IV FLUSH SCH ×2 (09:18→20:32)
[2018-03-18 09:51] LABS: AUTOMATED NEUTROPHIL # 14.9 TH/MM3 (1.8-7.7); BASOPHIL # 0.2 TH/MM3 (0-0.2); EOSINOPHIL # 0.1 TH/MM3 (0-0.4); EOSINOPHIL % 0.3 % (0.0-4.0); HEMOGLOBIN 7.4 GM/DL (13.0-17.0); LYMPH % 4.4 % (9.0-44.0); LYMPHOCYTE # 0.8 TH/MM3 (1.0-4.8); MEAN CELL VOLUME 91.5 FL (80.0-100.0); MEAN CORPUSCULAR HEMOGLOBIN 29.6 PG (27.0-34.0); MEAN CORPUSCULAR HGB CONC 32.3 % (32.0-36.0); MEAN PLATELET VOLUME 7.7 FL (7.0-11.0); MONO % 8.8 % (0.0-8.0); MONOCYTE # 1.5 TH/MM3 (0-0.9); NEUT % 85.5 % (16.0-70.0); PLATELET COUNT 307 TH/MM3 (150-450); RED BLOOD COUNT 2.51 MIL/MM3 (4.50-5.90); RED CELL DISTRIBUTION WIDTH 19.5 % (11.6-17.2); WHITE BLOOD COUNT 17.4 TH/MM3 (4.0-11.0)
--- NOTE | 2018-03-18 10:26 | PD.ONC.PN ---
Subjective Subjective Remarks Tmax 100.1 overnight. Patient resting in room. he states he likes it in this hospital better than other facilities he has been in. denies dizziness. Objective Data Date Time Temp Pulse Resp B/P (MAP) Pulse Ox O2 Delivery O2 Flow Rate FiO2 03/18/18 08:02 98.0 77 18 112/52 (72) 92 03/18/18 05:27 98.7 80 16 112/60 (77) 94 03/18/18 04:07 86 03/18/18 00:22 92 Room Air 03/18/18 00:16 100.1 88 18 116/65 (82) 92 03/18/18 00:09 86 03/17/18 21:50 92 21 03/17/18 20:14 98.5 86 18 108/41 (63) 91 03/17/18 16:00 98.0 75 18 110/67 (81) 93 03/17/18 13:35 93 Nasal Cannula 2.00 03/17/18 12:00 87 03/17/18 12:00 93 Room Air 03/17/18 12:00 98.0 84 16 105/56 (72) 93 03/17/18 10:45 18 03/18/18 03/18/18 03/18/18 07:00 15:00 23:00 Intake Total 480 ml Output Total 2225 ml Balance -1745 ml Result Diagram: 03/18/18 0912 03/17/18 0614 Laboratory Results Laboratory Tests Test 03/18/18 09:12 White Blood Count 17.4 TH/MM3 Red Blood Count 2.51 MIL/MM3 Hemoglobin 7.4 GM/DL Hematocrit 23.0 % Mean Corpuscular Volume 91.5 FL Mean Corpuscular Hemoglobin 29.6 PG Mean Corpuscular Hemoglobin Concent 32.3 % Red Cell Distribution Width 19.5 % Platelet Count 307 TH/MM3 Mean Platelet Volume 7.7 FL Neutrophils (%) (Auto) 85.5 % Lymphocytes (%) (Auto) 4.4 % Monocytes (%) (Auto) 8.8 % Eosinophils (%) (Auto) 0.3 % Basophils (%) (Auto) 1.0 % Neutrophils # (Auto) 14.9 TH/MM3 Lymphocytes # (Auto) 0.8 TH/MM3 Monocytes # (Auto) 1.5 TH/MM3 Eosinophils # (Auto) 0.1 TH/MM3 Basophils # (Auto) 0.2 TH/MM3 CBC Comment AUTO DIFF Culture Results Microbiology Date/Time Source Procedure Growth Status 03/15/18 21:58 Urine Random Urine Legionella Antigen - Final PRESUMPTIVE NEGATIVE FOR LEGIONELLA P... Complete 03/15/18 21:58 Urine Random Urine Streptococcus pneumoniae Antigen (M - Final PRESUMPTIVE NEGATIVE FOR STREPTOCOCCU... Complete Administered Medications Medications (Trade) Dose Ordered Sig/Mega Route PRN Reason Start Time Stop Time Status Last Admin Dose Admin Sodium Chloride 1,000 ml @ 100 mls/hr Q10H IV 03/14/18 20:59 03/18/18 05:22 Sodium Chloride (NS Flush) 2 ml UNSCH PRN IV FLUSH FLUSH AFTER USING IV ACCESS 03/14/18 21:00 03/15/18 06:35 Sodium Chloride (NS Flush) 2 ml BID IV FLUSH 03/14/18 21:00 03/17/18 09:45 Enoxaparin Sodium (Lovenox Inj) 40 mg Q24H SQ 03/14/18 22:00 03/17/18 20:28 Senna/Docusate Sodium (Betty-Colace) 1 tab BID PO 03/14/18 21:00 03/18/18 09:18 Sennosides (Senokot) 17.2 mg Q12H PRN PO Moderate constipation 03/14/18 21:00 03/16/18 21:17 Aripiprazole (Abilify) 5 mg DAILY PO 03/15/18 09:00 03/18/18 09:18 Famotidine (Pepcid) 20 mg Q12HR PO 03/15/18 09:00 03/18/18 09:18 Gabapentin (Neurontin) 200 mg TID PO 03/15/18 09:00 03/18/18 09:18 Hydroxyzine HCl (Atarax) 50 mg TID PO 03/15/18 09:00 03/18/18 09:18 Nortriptyline HCl (Pamelor) 25 mg HS PO 03/15/18 21:00 03/17/18 20:23 Propranolol HCl (Inderal) 20 mg Q12HR PO 03/15/18 09:00 03/18/18 09:17 Risperidone (risperDAL M-TAB) 3 mg Q12HR PO 03/15/18 09:00 03/18/18 09:18 Valproic Acid (Depakene) 500 mg Q8HR PO 03/14/18 22:00 03/18/18 05:21 Hydromorphone HCl (Dilaudid) 2 mg Q8H PRN PO Pain Management 1-10 03/15/18 14:45 03/16/18 14:06 Morphine Sulfate (Oramorph Sr) 15 mg BID PO 03/15/18 21:00 03/18/18 09:18 Alprazolam (Xanax) 0.5 mg Q8H PRN PO anxiety 03/15/18 15:00 03/18/18 05:21 Piperacillin Sod/ Tazobactam Sod 50 ml @ 100 mls/hr Q6H IV 03/15/18 20:00 03/18/18 09:17 Levothyroxine Sodium (Synthroid) 25 mcg DAILY@0600 PO 03/18/18 06:00 03/18/18 05:22 Objective Remarks GENERAL: young man, lying in bed in nad. SKIN: Warm and dry. HEAD: Normocephalic. EYES: No injection or drainage. NECK: Supple, trachea midline. CARDIOVASCULAR: Regular rate and rhythm RESPIRATORY: Breath sounds equal bilaterally. No accessory muscle use. GASTROINTESTINAL: Abdomen soft, non-tender, nondistended. +brown stool in colostomy bag EXTREMITIES: No cyanosis MUSCULOSKELETAL: +muscle atrophy noted, phuong. in legs. NEUROLOGICAL: awake and alert. normal speech. Assessment/Plan Problem List: (1) Colorectal cancer ICD Codes: C19 - Malignant neoplasm of rectosigmoid junction Plan: plan to start concurrent xeloda/xrt outpatient (2) Normocytic anemia ICD Codes: D64.9 - Anemia, unspecified Plan: --likely d/t blood loss from tumor --previously had intermittent bloody urine. --may also be component of inflammation, will check iron studies pre- transfusion. --s/p 2 units pRBC during this hospitalization. Assessment 42y/o male with locally advanced colorectal cancer admitted with dizziness. history of schizoaffective disorder, bipolar type. h/o COPD, peripheral neuropathy, right basilic vein deep vein thromboses, locally advanced perforated rectal cancer, gluteal and pelvic abscess, status post debridement, right thigh abscess, chronic anemia. h/o laparoscopic loop colostomy, colonoscopy, rectal biopsy, irrigation and debridement right thigh split-thickness skin graft, irrigation and debridement right hip, right thigh, right knee with would closure and wound VAC placement, skin graft placement. Plan 1. 1 unit pRBC 2. continue antibiotics 3. monitor CBC Attending Statement The exam, history, and the medical decision-making described in the above note were completed with the assistance of the mid-level provider. I reviewed and agree with the findings presented. I attest that I had a [id number] encounter with the patient on the same day, and personally performed and documented my assessment and findings in the medical record colorectal ca --progressive disease Xeloda on hold large abscess of leg had mets s/p surgery on abx colostomy bag in place anemic -Hb 7.4 RBC transfusion given remains somewhat confused daily cbc supportive care Brunilda Nieto Mar 18, 2018 10:26 Avila Cline MD Mar 18, 2018 11:43
[2018-03-18] MEDS ORDERED: SODIUM CHLOR 0.9% 250 ML INJ 250 ML IV ONE (10:30)
[2018-03-18] MEDS ORDERED: ACETAMINOPHEN 325 MG TAB PO PRN (10:30)
[2018-03-18 11:49] LABS: TOXIC GRANULATION 1+ (NORMAL); TOXIC VACUOLATION PRESENT (NONE SEEN)
--- NOTE | 2018-03-18 14:36 | HHI.IDPN ---
Subjective Subjective Remarks feels better pain "much better" according to the pt His WBC is up to 17 K today still has low grade fever up to 100.1 Antibiotics zosyn Past Medical History metastatic and localy advanced rectal cancer Allergies: Coded Allergies: diphenhydramine (Verified Adverse Reaction, Unknown, 03/14/18) Objective . Vital Signs Date Time Temp Pulse Resp B/P (MAP) Pulse Ox O2 Delivery O2 Flow Rate FiO2 03/18/18 12:36 98.2 80 18 118/69 (85) 95 03/18/18 12:00 70 03/18/18 11:00 70 03/18/18 10:00 72 03/18/18 09:00 82 03/18/18 08:02 98.0 77 18 112/52 (72) 92 03/18/18 08:00 84 03/18/18 07:16 95 21 03/18/18 07:00 92 Room Air 03/18/18 07:00 76 03/18/18 05:27 98.7 80 16 112/60 (77) 94 03/18/18 04:07 86 03/18/18 00:22 92 Room Air 03/18/18 00:16 100.1 88 18 116/65 (82) 92 03/18/18 00:09 86 03/17/18 21:50 92 21 03/17/18 20:14 98.5 86 18 108/41 (63) 91 03/17/18 16:00 98.0 75 18 110/67 (81) 93 . Laboratory Tests Test 03/17/18 06:14 03/18/18 09:12 White Blood Count 16.6 TH/MM3 17.4 TH/MM3 Red Blood Count 2.64 MIL/MM3 2.51 MIL/MM3 Hemoglobin 7.8 GM/DL 7.4 GM/DL Hematocrit 23.8 % 23.0 % Mean Corpuscular Volume 89.9 FL 91.5 FL Mean Corpuscular Hemoglobin 29.6 PG 29.6 PG Mean Corpuscular Hemoglobin Concent 32.9 % 32.3 % Red Cell Distribution Width 19.3 % 19.5 % Platelet Count 335 TH/MM3 307 TH/MM3 Mean Platelet Volume 7.1 FL 7.7 FL Neutrophils (%) (Auto) 85.0 % 85.5 % Lymphocytes (%) (Auto) 4.9 % 4.4 % Monocytes (%) (Auto) 9.4 % 8.8 % Eosinophils (%) (Auto) 0.4 % 0.3 % Basophils (%) (Auto) 0.3 % 1.0 % Neutrophils # (Auto) 14.1 TH/MM3 14.9 TH/MM3 Lymphocytes # (Auto) 0.8 TH/MM3 0.8 TH/MM3 Monocytes # (Auto) 1.6 TH/MM3 1.5 TH/MM3 Eosinophils # (Auto) 0.1 TH/MM3 0.1 TH/MM3 Basophils # (Auto) 0.1 TH/MM3 0.2 TH/MM3 CBC Comment DIFF FINAL AUTO DIFF Differential Comment AUTO DIFF CONFIRMED Reticulocyte Count 1.2 % Absolute Reticulocyte Count 31.2 MIL/L Haptoglobin 333 MG/DL Toxic Granulation 1+ Toxic Vacuolation PRESENT Platelet Estimate NORMAL Platelet Morphology Comment NORMAL Laboratory Tests Test 03/17/18 06:14 Blood Urea Nitrogen 7 MG/DL Creatinine 0.51 MG/DL Random Glucose 87 MG/DL Total Protein 5.2 GM/DL Albumin 1.3 GM/DL Calcium Level 9.2 MG/DL Phosphorus Level 2.3 MG/DL Magnesium Level 1.7 MG/DL Alkaline Phosphatase 89 U/L Aspartate Amino Transf (AST/SGOT) 51 U/L Alanine Aminotransferase (ALT/SGPT) 10 U/L Total Bilirubin 0.2 MG/DL Sodium Level 140 MEQ/L Potassium Level 3.8 MEQ/L Chloride Level 105 MEQ/L Carbon Dioxide Level 27.5 MEQ/L Anion Gap 8 MEQ/L Estimat Glomerular Filtration Rate 180 ML/MIN Hemoglobin A1c 5.2 % Iron Level 16 MCG/DL Total Iron Binding Capacity 139 MCG/DL Percent Iron Saturation 11.5 % Ferritin 847 NG/ML Lactate Dehydrogenase 379 U/L Free Thyroxine 0.95 NG/DL Thyroid Stimulating Hormone 3rd Gen 6.030 uIU/ML Microbiology Date/Time Source Procedure Growth Status 03/15/18 21:58 Urine Random Urine Legionella Antigen - Final PRESUMPTIVE NEGATIVE FOR LEGIONELLA P... Complete 03/15/18 21:58 Urine Random Urine Streptococcus pneumoniae Antigen (M - Final PRESUMPTIVE NEGATIVE FOR STREPTOCOCCU... Complete Imaging Last Impressions Abdomen/Pelvis CT 03/15/18 0000 Signed Impressions: CONCLUSION: 1. Significant interval progression of rectal mass with interval invasion of n early the entire sacrum and adjacent gluteal musculature. Retroperitoneal adeno suzanna. Otherwise, no gross distant metastatic disease. 2. Right lung base airspace consolidation. Cannot exclude pneumonia or aspirat ion in the appropriate clinical setting. ` Chest X-Ray 03/14/18 1743 Signed Impressions: CONCLUSION: Hyperinflation otherwise negative. CT Angiography 03/14/18 0000 Signed Impressions: CONCLUSION: 1. Probable airspace disease right lower lobe consistent with an inflammatory process. 2. Large gallstone Physical Exam CONSTITUTIONAL/GENERAL: This is a thin undernourished male , in no apparent distress. TUBES/LINES/DRAINS: SKIN: No jaundice, rashes, or lesions. EYES: Pupils equal and round and reactive. Extraocular motions intact. No scleral icterus. No injection or drainage. Fundi not examined. ENT: Hearing grossly normal. Nose without bleeding or purulent drainage. . poor dentition CARDIOVASCULAR: Regular rate and rhythm without murmurs, gallops, or rubs. No JVD. Peripheral pulses symmetric. RESPIRATORY/CHEST: Symmetric, unlabored respirations. Clear to auscultation. Breath sounds equal bilaterally. No wheezes, rales, or rhonchi. GASTROINTESTINAL: Abdomen soft, non-tender, nondistended. No hepato-splenomegaly , or palpable masses. No guarding. Bowel sounds present. stoma in place LLQ with loose stool GENITOURINARY: Without palpable bladder distension. Chaidez catheter in place with clear yellow urine MUSCULOSKELETAL: Extremities without clubbing, cyanosis, or edema. No joint tenderness or effusion noted. No calf tenderness. No mottling or clubbing. NEUROLOGICAL: Awake and alert. Motor and sensory grossly within normal limits. Follows commands. Somewhat incoherent speech. Moves all extremities. PSYCHIATRIC: calm. Flat affect Assessment & Plan Remarks REctal cancer with mets, large tumor undergoing XRT Leukocytosis: worrse Persistent fever Obstructive uropathy Supected earlier UTI, clx not c/w UTI ? PNA RLE vs ATX worsening leukocytosis: ? ongoing infx vs cancer diarrhea with 300-450 cc chk stool for c.diff fu WBC cont zosyn rechk UA, C+S Plan to d/c ig remains aferile in 24 hrs , WBC down and P w/u negative Tiffanie Ann MD Mar 18, 2018 14:36
--- NOTE | 2018-03-18 15:18 | HHI.PR ---
Subjective Remarks Pt seen and examined. Tmax 100.1 overnight. Pt with no acute complaints. States he is feeling "great." Denies cough, SOB, CP, abdominal pain, N/V. Tolerating PO. States the year is "1213" and that he is in "[place], no [facility]. " Tells me the wrong name. Objective Vital Signs Date Time Temp Pulse Resp B/P (MAP) Pulse Ox O2 Delivery O2 Flow Rate FiO2 03/18/18 12:36 98.2 80 18 118/69 (85) 95 03/18/18 12:00 70 03/18/18 11:00 70 03/18/18 10:00 72 03/18/18 09:00 82 03/18/18 08:02 98.0 77 18 112/52 (72) 92 03/18/18 08:00 84 03/18/18 07:16 95 21 03/18/18 07:00 92 Room Air 03/18/18 07:00 76 03/18/18 05:27 98.7 80 16 112/60 (77) 94 03/18/18 04:07 86 03/18/18 00:22 92 Room Air 03/18/18 00:16 100.1 88 18 116/65 (82) 92 03/18/18 00:09 86 03/17/18 21:50 92 21 03/17/18 20:14 98.5 86 18 108/41 (63) 91 03/17/18 16:00 98.0 75 18 110/67 (81) 93 I/O 03/17/18 03/17/18 03/17/18 03/18/18 03/18/18 03/18/18 07:00 15:00 23:00 07:00 15:00 23:00 Intake Total 3060 ml 600 ml 480 ml Output Total 1650 ml 900 ml 2225 ml Balance 1410 ml -300 ml -1745 ml Intake Oral 1440 ml 600 ml 480 ml IV Total 1620 ml Output Urine Total 1650 ml 900 ml 1775 ml Stool Total 450 ml Result Diagram: 03/18/18 0912 03/17/18 0614 Imaging Abdomen/Pelvis CT 03/15/18 0000 Signed Impressions: CONCLUSION: 1. Significant interval progression of rectal mass with interval invasion of n early the entire sacrum and adjacent gluteal musculature. Retroperitoneal adeno suzanna. Otherwise, no gross distant metastatic disease. 2. Right lung base airspace consolidation. Cannot exclude pneumonia or aspirat ion in the appropriate clinical setting. ` Chest X-Ray 03/14/18 1743 Signed Impressions: CONCLUSION: Hyperinflation otherwise negative. CT Angiography 03/14/18 0000 Signed Impressions: CONCLUSION: 1. Probable airspace disease right lower lobe consistent with an inflammatory process. 2. Large gallstone Objective Remarks GENERAL: WN, WD male resting in bed in NAD. SKIN: Warm and dry. HEART: RRR no m/r/g. LUNGS: CTAB without wheezes or crackles. ABDOMEN: Colostomy bag in place with brown-green stool. EXTREMITIES: No LE edema. NEURO: Awake and alert. Not oriented to place or time. PSYCH: Not responding to internal stimuli. Impaired judgement and limited insight. A/P Assessment and Plan 42 YOWM with schizoaffective disorder, R basilic vein DVT, locally advanced perforated rectal cancer with associated gluteal and pelvic abscess s/p debridement, and chronic anemia admitted on 03/15 for weakness, dizziness, and anemia during a radiation treatment. On presentation he was found to have possible pneumonia or early UTI as well. 1. Anemia - Hb down to 74 this morning - Heme/onc following; transfusing 1 unit 2. Leukocytosis - CTA on admission with probably airspace disease, CXR negative for acute process - Urine legionella and strep negative - Blood culture negative - Urine culture from 03/14 with Corynebacterium - WBC continues to be elevated, up to 17,000 today - Low-grade fever of 100.1 overnight - Possibly secondary to expanding inflammatory process from invasive rectal cancer - ID following, recommend checking for C. diff given diarrhea and rechecking U/ A with culture - Continuing IV Zosyn 3. Weakness - PT following, recommending rehab 4. Rectal cancer - Heme/onc following - Radiation as outpatient 5. Unstageable R heel, stage IV R sacral, and R thigh wounds - Wound care following - Position changes Q2H - Follows with Dr. Fregoso as outpatient 6. Diarrhea - Check for C. diff 7. Schizoaffective disorder - Continue home medications 8. Obstructive uropathy - Chaidez in place DVT prophylaxis: SCDs for now given dropping hemoglobin Discharge Planning Possibly in next 1-2 days pending further work-up for leukocytosis and if patient remains clinically stable Mar Marcus MD Mar 18, 2018 15:18
[2018-03-18 19:23] LABS: BILIRUBIN, URINE NEG (NEG); BLOOD, URINE NEG (NEG); GLUCOSE,URINE NEG (NEG); KETONE, URINE NEG (NEG); MUCUS URINE FEW /lpf (OCC); NITRITE,URINE NEG (NEG); URINE COLOR LIGHT-YELLOW (YELLW/STRAW); URINE LEUKOCYTE ESTERASE TRACE (NEG)
[2018-03-18] MEDS: NORTRIPTYLINE HCL 25 MG CAP PO SCH (20:34)
[2018-03-18] MEDS: ENOXAPARIN SODIUM 40 MG/0.4 ML SYRINGE SQ SCH (20:39)
[2018-03-19] VITALS (13 sets, daily range): BP systolic 105–142; BP diastolic 51–82; PULSE 69–89; RESP 16–20; TEMP 98.3–99.8; O2SAT 90–98
[2018-03-19] MEDS: SODIUM CHLOR 0.9% 1000 ML INJ 1,000 ML IV SCH ×2 (00:11→11:57)
[2018-03-19] MEDS: PIPERACIL-TAZO 3.375 GM PREMIX 50 ML IV SCH ×4 (02:20→20:44)
[2018-03-19 04:21] LABS: AUTOMATED NEUTROPHIL # 11.5 TH/MM3 (1.8-7.7); BASOPHIL # 0.1 TH/MM3 (0-0.2); BASOPHIL % 0.4 % (0.0-2.0); EOSINOPHIL # 0.2 TH/MM3 (0-0.4); EOSINOPHIL % 1.1 % (0.0-4.0); HEMATOCRIT 26.7 % (39.0-51.0); HEMOGLOBIN 8.8 GM/DL (13.0-17.0); LYMPH % 5.7 % (9.0-44.0); LYMPHOCYTE # 0.8 TH/MM3 (1.0-4.8); MEAN CELL VOLUME 88.3 FL (80.0-100.0); MEAN CORPUSCULAR HEMOGLOBIN 29.1 PG (27.0-34.0); MONO % 8.4 % (0.0-8.0); MONOCYTE # 1.2 TH/MM3 (0-0.9); NEUT % 84.4 % (16.0-70.0); PLATELET COUNT 327 TH/MM3 (150-450); RED BLOOD COUNT 3.02 MIL/MM3 (4.50-5.90); RED CELL DISTRIBUTION WIDTH 20.5 % (11.6-17.2); WHITE BLOOD COUNT 13.7 TH/MM3 (4.0-11.0)
[2018-03-19 04:39] LABS: ALBUMIN 1.4 GM/DL (3.4-5.0); AST (GOT) 50 U/L (15-37); BICARBONATE 25.6 MEQ/L (21.0-32.0); BLOOD UREA NITROGEN 9 MG/DL (7-18); CALCIUM 9.3 MG/DL (8.5-10.1); CHLORIDE 101 MEQ/L (98-107); CREATININE 0.69 MG/DL (0.60-1.30); GLOMERULAR FILTRATION RATE 127 ML/MIN (>89); GLUCOSE,RANDOM 133 MG/DL (74-106); SODIUM (NA) 139 MEQ/L (136-145)
[2018-03-19 04:40] LABS: ALT (GPT) 9 U/L (12-78)
[2018-03-19 04:42] LABS: ALKALINE PHOSPHATASE 86 U/L (45-117); TOTAL BILIRUBIN ADULT 0.1 MG/DL (0.2-1.0); TOTAL PROTEIN 5.4 GM/DL (6.4-8.2)
[2018-03-19] MEDS: LEVOTHYROXINE SODIUM 25 MCG TAB PO SCH (05:32)
[2018-03-19] MEDS: VALPROIC ACID 250 MG CAP PO SCH ×3 (05:32→21:01)
[2018-03-19] MEDS: DOCUSATE SODIUM 50 MG/SENNA 8.6 MG TAB PO SCH ×2 (09:00→20:49)
[2018-03-19] MEDS: ARIPiprazole 5 MG TAB PO SCH (09:53)
[2018-03-19] MEDS: PROPRANOLOL HCL 20 MG TAB PO SCH ×2 (09:53→20:48)
[2018-03-19] MEDS: GABAPENTIN 100 MG CAP PO SCH ×3 (09:53→16:54)
[2018-03-19] MEDS: hydrOXYzine HCL 50 MG TAB PO SCH ×3 (09:54→16:54)
[2018-03-19] MEDS: FAMOTIDINE 20 MG TAB PO SCH ×2 (09:54→20:49)
[2018-03-19] MEDS: MORPHINE SULFATE 15 MG CONTROLLED RELEASE TAB PO SCH ×2 (09:54→20:48)
[2018-03-19] MEDS: risperiDONE ODT 3 MG TAB PO SCH ×2 (09:54→20:49)
[2018-03-19] MEDS: SODIUM CHLORIDE 0.9% FLUSH 10 ML FLUSH IV FLUSH SCH ×2 (09:54→20:46)
[2018-03-19] MEDS: ALPRAZolam 0.5 MG TAB PO PRN (12:46)
--- NOTE | 2018-03-19 14:30 | HHI.PR ---
Subjective Remarks Pt seen and examined. AFVSS. No acute events overnight. No issues per nursing except that he had pulled out his Chaidez. Patient continues to be confused. When I walked in he states he was talking to his friend Brie through the television remote. He has no acute complaints. Objective Vital Signs Date Time Temp Pulse Resp B/P (MAP) Pulse Ox O2 Delivery O2 Flow Rate FiO2 03/19/18 12:03 98.3 85 20 118/67 (84) 98 03/19/18 08:34 80 03/19/18 07:56 98.5 80 16 105/51 (69) 91 03/19/18 04:46 98.3 79 18 125/63 (83) 92 03/19/18 04:00 81 03/19/18 00:10 98.8 72 18 109/62 (78) 90 03/19/18 00:00 69 03/18/18 21:48 92 21 03/18/18 20:10 98.2 86 17 111/59 (76) 92 03/18/18 20:10 92 Room Air 03/18/18 20:00 67 03/18/18 19:50 98.2 86 18 111/59 92 03/18/18 16:29 98.6 73 18 102/58 93 03/18/18 16:06 98.4 77 16 91/52 94 03/18/18 16:00 76 03/18/18 16:00 98.4 77 16 91/52 (65) 94 I/O 03/18/18 03/18/18 03/18/18 03/19/18 03/19/18 03/19/18 07:00 15:00 23:00 07:00 15:00 23:00 Intake Total 480 ml 1380 ml 1790 ml Output Total 2225 ml 2575 ml 2625 ml 75 ml Balance -1745 ml -1195 ml -835 ml -75 ml Intake Oral 480 ml 1080 ml 1140 ml IV Total 50 ml 650 ml Packed Cells 250 ml Output Urine Total 1775 ml 2550 ml 2350 ml Stool Total 450 ml 25 ml 275 ml 75 ml Result Diagram: 03/19/18 0339 03/19/18 033 Objective Remarks GENERAL: WN, WD male resting in bed in NAD. SKIN: Warm and dry. HEART: RRR no m/r/g. LUNGS: CTAB without wheezes or crackles. ABDOMEN: Colostomy bag in place. EXTREMITIES: No LE edema. NEURO: Awake and alert. Not oriented to place or time. PSYCH: Not responding to internal stimuli. Impaired judgement and limited insight. A/P Assessment and Plan 42 YOWM with schizoaffective disorder, R basilic vein DVT, locally advanced perforated rectal cancer with associated gluteal and pelvic abscess s/p debridement, and chronic anemia admitted on 03/15 for weakness, dizziness, and anemia during a radiation treatment. On presentation he was found to have possible pneumonia or early UTI as well. 1. Anemia - Stable, Hb up to 8.8 today after being transfused one unit yesterday - Heme/onc following 2. Leukocytosis - CTA on admission with probably airspace disease, CXR negative for acute process - Urine legionella and strep negative - Blood culture negative - Urine culture from 03/14 with Corynebacterium - Repeat UA 03/18 negative - C. diff negative - WBC trending down, 13.7 this morning and afebrile overnight - ID following - Continuing IV Zosyn, will defer to ID to deescalate abx 3. Weakness - PT following, recommending rehab 4. Rectal cancer - Heme/onc following - Radiation as outpatient 5. Unstageable R heel, stage IV R sacral, and R thigh wounds - Wound care following - Position changes Q2H - Follows with Dr. Fregoso as outpatient 6. Schizoaffective disorder - Continue home medications 9. Obstructive uropathy - Chaidez in place DVT prophylaxis: SCDs for now given dropping hemoglobin Discharge Planning Once cleared by ID, possibly tomorrow Mar Marcus MD Mar 19, 2018 14:30
[2018-03-19] MEDS: HYDROmorphone HCL 2 MG TAB PO PRN (16:55)
[2018-03-19] MEDS: NORTRIPTYLINE HCL 25 MG CAP PO SCH (20:46)
[2018-03-19] MEDS: ENOXAPARIN SODIUM 40 MG/0.4 ML SYRINGE SQ SCH (21:00)
[2018-03-20] VITALS (10 sets, daily range): BP systolic 116–140; BP diastolic 60–89; PULSE 69–85; RESP 16–18; TEMP 97.4–98.9; O2SAT 95–99
[2018-03-20] MEDS: PIPERACIL-TAZO 3.375 GM PREMIX 50 ML IV SCH ×2 (02:24→08:06)
[2018-03-20] MEDS: LEVOTHYROXINE SODIUM 25 MCG TAB PO SCH (06:10)
[2018-03-20] MEDS: VALPROIC ACID 250 MG CAP PO SCH ×3 (06:10→20:56)
[2018-03-20] MEDS: GABAPENTIN 100 MG CAP PO SCH ×3 (08:04→18:09)
[2018-03-20] MEDS: FAMOTIDINE 20 MG TAB PO SCH ×2 (08:04→20:55)
[2018-03-20] MEDS: hydrOXYzine HCL 50 MG TAB PO SCH ×3 (08:04→18:09)
[2018-03-20] MEDS: PROPRANOLOL HCL 20 MG TAB PO SCH ×2 (08:04→20:55)
[2018-03-20] MEDS: risperiDONE ODT 3 MG TAB PO SCH ×2 (08:04→20:55)
[2018-03-20] MEDS: MORPHINE SULFATE 15 MG CONTROLLED RELEASE TAB PO SCH ×2 (08:05→20:55)
[2018-03-20] MEDS: SODIUM CHLORIDE 0.9% FLUSH 10 ML FLUSH IV FLUSH SCH ×2 (08:05→20:56)
[2018-03-20] MEDS: DOCUSATE SODIUM 50 MG/SENNA 8.6 MG TAB PO SCH ×2 (08:09→20:56)
--- NOTE | 2018-03-20 12:46 | HHI.IDPN ---
Subjective Subjective Remarks doing OK WBC down no fever yanked his aguirre and now gross hematuria Antibiotics zosyn Past Medical History metastatic and localy advanced rectal cancer Allergies: Coded Allergies: diphenhydramine (Verified Adverse Reaction, Unknown, 03/14/18) Objective . Vital Signs Date Time Temp Pulse Resp B/P (MAP) Pulse Ox O2 Delivery O2 Flow Rate FiO2 03/20/18 11:38 98.9 69 18 122/79 (93) 99 03/20/18 11:00 73 03/20/18 11:00 79 03/20/18 08:00 97 Room Air 03/20/18 07:54 97.4 82 18 140/89 (106) 97 03/20/18 07:00 81 03/20/18 04:35 98.8 73 17 123/68 (86) 95 03/20/18 04:00 80 03/20/18 00:00 81 03/19/18 23:05 99.4 78 18 121/72 (88) 96 03/19/18 21:22 92 21 03/19/18 20:00 99.8 83 18 124/78 (93) 95 03/19/18 20:00 89 03/19/18 19:28 Room Air 03/19/18 17:03 99.1 78 18 142/82 (102) 94 03/19/18 16:00 73 . Laboratory Tests Test 03/19/18 03:39 White Blood Count 13.7 TH/MM3 Red Blood Count 3.02 MIL/MM3 Hemoglobin 8.8 GM/DL Hematocrit 26.7 % Mean Corpuscular Volume 88.3 FL Mean Corpuscular Hemoglobin 29.1 PG Mean Corpuscular Hemoglobin Concent 33.0 % Red Cell Distribution Width 20.5 % Platelet Count 327 TH/MM3 Mean Platelet Volume 7.0 FL Neutrophils (%) (Auto) 84.4 % Lymphocytes (%) (Auto) 5.7 % Monocytes (%) (Auto) 8.4 % Eosinophils (%) (Auto) 1.1 % Basophils (%) (Auto) 0.4 % Neutrophils # (Auto) 11.5 TH/MM3 Lymphocytes # (Auto) 0.8 TH/MM3 Monocytes # (Auto) 1.2 TH/MM3 Eosinophils # (Auto) 0.2 TH/MM3 Basophils # (Auto) 0.1 TH/MM3 CBC Comment DIFF FINAL Differential Comment Laboratory Tests Test 03/19/18 03:39 Blood Urea Nitrogen 9 MG/DL Creatinine 0.69 MG/DL Random Glucose 133 MG/DL Total Protein 5.4 GM/DL Albumin 1.4 GM/DL Calcium Level 9.3 MG/DL Alkaline Phosphatase 86 U/L Aspartate Amino Transf (AST/SGOT) 50 U/L Alanine Aminotransferase (ALT/SGPT) 9 U/L Total Bilirubin 0.1 MG/DL Sodium Level 139 MEQ/L Potassium Level 3.5 MEQ/L Chloride Level 101 MEQ/L Carbon Dioxide Level 25.6 MEQ/L Anion Gap 12 MEQ/L Estimat Glomerular Filtration Rate 127 ML/MIN Imaging Last Impressions Abdomen/Pelvis CT 03/15/18 0000 Signed Impressions: CONCLUSION: 1. Significant interval progression of rectal mass with interval invasion of n early the entire sacrum and adjacent gluteal musculature. Retroperitoneal adeno suzanna. Otherwise, no gross distant metastatic disease. 2. Right lung base airspace consolidation. Cannot exclude pneumonia or aspirat ion in the appropriate clinical setting. ` Chest X-Ray 03/14/18 174 Signed Impressions: CONCLUSION: Hyperinflation otherwise negative. CT Angiography 03/14/18 0000 Signed Impressions: CONCLUSION: 1. Probable airspace disease right lower lobe consistent with an inflammatory process. 2. Large gallstone Physical Exam CONSTITUTIONAL/GENERAL: This is a thin undernourished male , in no apparent distress. TUBES/LINES/DRAINS: SKIN: No jaundice, rashes, or lesions. EYES: Pupils equal and round and reactive. Extraocular motions intact. No scleral icterus. No injection or drainage. Fundi not examined. ENT: Hearing grossly normal. Nose without bleeding or purulent drainage. . poor dentition CARDIOVASCULAR: Regular rate and rhythm without murmurs, gallops, or rubs. No JVD. Peripheral pulses symmetric. RESPIRATORY/CHEST: Symmetric, unlabored respirations. Clear to auscultation. Breath sounds equal bilaterally. No wheezes, rales, or rhonchi. GASTROINTESTINAL: Abdomen soft, non-tender, nondistended. No hepato-splenomegaly , or palpable masses. No guarding. Bowel sounds present. stoma in place LLQ with loose stool GENITOURINARY: Without palpable bladder distension. condom catheter in place with clear yellow urine. Urine is bright red MUSCULOSKELETAL: Extremities without clubbing, cyanosis, or edema. NEUROLOGICAL: Awake and alert. Motor and sensory grossly within normal limits. Follows commands. Somewhat incoherent speech. Moves all extremities. PSYCHIATRIC: calm. Assessment & Plan Remarks REctal cancer with mets, large tumor undergoing XRT Leukocytosis: worse Persistent fever Obstructive uropathy Supected earlier UTI, clx not c/w UTI ? PNA RLE vs ATX worsening leukocytosis: ? ongoing infx vs cancer diarrhea with 300-450 cc c.diff negative Hematuria: pt uyanked his aguirre out dc zosyn OK to dc pt if no e/o urineary syd rojas Dr, Alexandra A. MD Mar 20, 2018 12:46
[2018-03-20] MEDS: ALPRAZolam 0.5 MG TAB PO PRN ×2 (13:29→22:41)
[2018-03-20] MEDS: HYDROmorphone HCL 2 MG TAB PO PRN ×2 (13:29→22:40)
[2018-03-20] MEDS: NICOTINE 14 MG/24 HR PATCH T-DERMAL SCH (13:29)
[2018-03-20] MEDS ORDERED: HYDROmorphone HCL PF 2 MG/ML VIAL IV PUSH ONE (16:00)
--- NOTE | 2018-03-20 16:51 | HHI.PR ---
Subjective Remarks Follow-up for rectal cancer, suspected UTI versus pneumonia. Patient is currently doing well. He appears to be somewhat confused which is probably his baseline. No fever or chills. He is requiring soft restraints on his bilateral wrists. Objective Vitals Vital Signs Date Time Temp Pulse Resp B/P (MAP) Pulse Ox O2 Delivery O2 Flow Rate FiO2 03/20/18 15:24 98.3 77 18 134/75 (94) 96 03/20/18 11:38 98.9 69 18 122/79 (93) 99 03/20/18 11:00 73 03/20/18 11:00 79 03/20/18 08:00 97 Room Air 03/20/18 07:54 97.4 82 18 140/89 (106) 97 03/20/18 07:00 81 03/20/18 04:35 98.8 73 17 123/68 (86) 95 03/20/18 04:00 80 03/20/18 00:00 81 03/19/18 23:05 99.4 78 18 121/72 (88) 96 03/19/18 21:22 92 21 03/19/18 20:00 99.8 83 18 124/78 (93) 95 03/19/18 20:00 89 03/19/18 19:28 Room Air 03/19/18 17:03 99.1 78 18 142/82 (102) 94 I/O 03/19/18 03/19/18 03/19/18 03/20/18 03/20/18 03/20/18 07:00 15:00 23:00 07:00 15:00 23:00 Intake Total 1790 ml 50 ml 1300 ml 770 ml Output Total 2625 ml 75 ml 3000 ml 2790 ml Balance -835 ml -25 ml -1700 ml -2020 ml Intake Oral 1140 ml 1200 ml 720 ml IV Total 650 ml 50 ml 100 ml 50 ml Output Urine Total 2350 ml 2725 ml 2725 ml Stool Total 275 ml 75 ml 275 ml 65 ml Result Diagram: 03/19/18 0339 03/19/18 0339 Imaging Last Impressions Abdomen/Pelvis CT 03/15/18 0000 Signed Impressions: CONCLUSION: 1. Significant interval progression of rectal mass with interval invasion of n early the entire sacrum and adjacent gluteal musculature. Retroperitoneal adeno suzanna. Otherwise, no gross distant metastatic disease. 2. Right lung base airspace consolidation. Cannot exclude pneumonia or aspirat ion in the appropriate clinical setting. ` Chest X-Ray 03/14/18 1743 Signed Impressions: CONCLUSION: Hyperinflation otherwise negative. CT Angiography 03/14/18 0000 Signed Impressions: CONCLUSION: 1. Probable airspace disease right lower lobe consistent with an inflammatory process. 2. Large gallstone Objective Remarks GENERAL: Alert, oriented to person. No acute distress. SKIN: Warm and dry. HEAD: Normocephalic. EYES: No scleral icterus. No injection or drainage. NECK: Supple, trachea midline. No JVD or lymphadenopathy. CARDIOVASCULAR: Regular rate and rhythm without murmurs, gallops, or rubs. RESPIRATORY: Breath sounds equal bilaterally. No accessory muscle use. GASTROINTESTINAL: Abdomen soft, non-tender, nondistended. MUSCULOSKELETAL: No cyanosis, or edema. BACK: Nontender without obvious deformity. No CVA tenderness. Procedures NONE A/P Assessment and Plan 42 year old male with schizoaffective disorder, R basilic vein DVT, locally advanced perforated rectal cancer with associated gluteal and pelvic abscess s/ p debridement, and chronic anemia admitted on 03/15 for weakness, dizziness, and anemia during a radiation treatment. On presentation he was found to have possible pneumonia or early UTI as well. Anemia - Stable, Hb up to 8.8 after being transfused one unit - Heme/onc following Urinary retention - Will put a Chaidez catheter. - Start Tamsulosin 0.4mg Qday. Right lower lobe pneumonia Possible aspiration pneumonia - Patient received Zosyn. ID discontinued Zosyn on 03/20/2018. Rectal cancer - Heme/onc following - Radiation as outpatient Un-stageable R heel, stage IV R sacral, and R thigh wounds - Wound care following - Position changes Q2H - Follows with Dr. Fregoso as outpatient Schizoaffective disorder - Continue home medications Obstructive uropathy - Chaidez in place DVT prophylaxis: Reji Nayak DO Mar 20, 2018 4:50 pm
[2018-03-20] MEDS: NORTRIPTYLINE HCL 25 MG CAP PO SCH (20:55)
[2018-03-20] MEDS: ENOXAPARIN SODIUM 40 MG/0.4 ML SYRINGE SQ SCH (20:56)
[2018-03-21 03:25] VITALS: BP 99/60; PULSE 79; TEMP 98; O2SAT 91
[2018-03-21 03:41] LABS: CREATININE 0.61 MG/DL (0.60-1.30)
[2018-03-21] MEDS: LEVOTHYROXINE SODIUM 25 MCG TAB PO SCH (06:46)
[2018-03-21] MEDS: VALPROIC ACID 250 MG CAP PO SCH ×3 (06:46→20:43)
[2018-03-21] MEDS: HYDROmorphone HCL 2 MG TAB PO PRN ×2 (06:47→17:14)
[2018-03-21 08:31] VITALS: BP 112/66; PULSE 86; RESP 16; TEMP 97.7; O2SAT 95
[2018-03-21] MEDS: REMOVE OLD PATCH T-DERMAL SCH (09:00)
[2018-03-21] MEDS: risperiDONE ODT 3 MG TAB PO SCH ×2 (09:00→20:43)
[2018-03-21] MEDS: TAMSULOSIN HCL 0.4 MG CAP PO SCH (09:26)
[2018-03-21] MEDS: PROPRANOLOL HCL 20 MG TAB PO SCH ×2 (09:26→20:43)
[2018-03-21] MEDS: hydrOXYzine HCL 50 MG TAB PO SCH ×3 (09:26→17:48)
[2018-03-21] MEDS: GABAPENTIN 100 MG CAP PO SCH ×3 (09:26→17:48)
[2018-03-21] MEDS: ARIPiprazole 5 MG TAB PO SCH (09:26)
[2018-03-21] MEDS: FAMOTIDINE 20 MG TAB PO SCH ×2 (09:26→20:43)
[2018-03-21] MEDS: DOCUSATE SODIUM 50 MG/SENNA 8.6 MG TAB PO SCH ×2 (09:26→20:43)
[2018-03-21] MEDS: MORPHINE SULFATE 15 MG CONTROLLED RELEASE TAB PO SCH ×2 (09:27→20:43)
[2018-03-21] MEDS: SODIUM CHLORIDE 0.9% FLUSH 10 ML FLUSH IV FLUSH SCH ×2 (09:28→21:08)
[2018-03-21] MEDS: NICOTINE 14 MG/24 HR PATCH T-DERMAL SCH (09:30)
[2018-03-21] MEDS ORDERED: HYDROmorphone HCL PF 2 MG/ML VIAL IV ONE (11:30)
[2018-03-21 12:00] VITALS: BP 122/78; PULSE 83; RESP 16; TEMP 98.3; O2SAT 93
[2018-03-21 12:03] LABS: AUTOMATED NEUTROPHIL # 11.7 TH/MM3 (1.8-7.7); BASOPHIL # 0.1 TH/MM3 (0-0.2); BASOPHIL % 0.4 % (0.0-2.0); EOSINOPHIL # 0.1 TH/MM3 (0-0.4); EOSINOPHIL % 0.6 % (0.0-4.0); HEMATOCRIT 29.5 % (39.0-51.0); HEMOGLOBIN 9.6 GM/DL (13.0-17.0); LYMPH % 5.3 % (9.0-44.0); LYMPHOCYTE # 0.7 TH/MM3 (1.0-4.8); MEAN CELL VOLUME 88.7 FL (80.0-100.0); MEAN CORPUSCULAR HEMOGLOBIN 28.9 PG (27.0-34.0); MEAN CORPUSCULAR HGB CONC 32.6 % (32.0-36.0); MONO % 10.4 % (0.0-8.0); MONOCYTE # 1.5 TH/MM3 (0-0.9); NEUT % 83.3 % (16.0-70.0); PLATELET COUNT 353 TH/MM3 (150-450); RED BLOOD COUNT 3.33 MIL/MM3 (4.50-5.90); RED CELL DISTRIBUTION WIDTH 20.6 % (11.6-17.2)
--- NOTE | 2018-03-21 13:55 | PD.ONC.PN ---
Subjective Subjective Remarks Afebrile overnight. Patient resting in bed in nad. No complaints. wants to go home. mother at bedside. Objective Data Date Time Temp Pulse Resp B/P (MAP) Pulse Ox O2 Delivery O2 Flow Rate FiO2 03/21/18 09:18 Room Air 03/21/18 08:31 97.7 86 16 112/66 (81) 95 03/21/18 03:25 98.0 79 99/60 (73) 91 03/20/18 23:40 16 03/20/18 23:00 98.8 73 16 116/60 (78) 96 03/20/18 21:55 16 03/20/18 21:36 21 03/20/18 19:50 98.3 85 18 119/76 (90) 96 03/20/18 19:50 Room Air 03/20/18 15:24 98.3 77 18 134/75 (94) 96 03/21/18 03/21/18 03/21/18 07:00 15:00 23:00 Output Total 800 ml Balance -800 ml Result Diagram: 03/21/18 1149 03/21/18 0244 Laboratory Results Laboratory Tests Test 03/21/18 02:44 03/21/18 11:49 Creatinine 0.61 MG/DL Estimat Glomerular Filtration Rate 146 ML/MIN White Blood Count 14.0 TH/MM3 Red Blood Count 3.33 MIL/MM3 Hemoglobin 9.6 GM/DL Hematocrit 29.5 % Mean Corpuscular Volume 88.7 FL Mean Corpuscular Hemoglobin 28.9 PG Mean Corpuscular Hemoglobin Concent 32.6 % Red Cell Distribution Width 20.6 % Platelet Count 353 TH/MM3 Mean Platelet Volume 7.0 FL Neutrophils (%) (Auto) 83.3 % Lymphocytes (%) (Auto) 5.3 % Monocytes (%) (Auto) 10.4 % Eosinophils (%) (Auto) 0.6 % Basophils (%) (Auto) 0.4 % Neutrophils # (Auto) 11.7 TH/MM3 Lymphocytes # (Auto) 0.7 TH/MM3 Monocytes # (Auto) 1.5 TH/MM3 Eosinophils # (Auto) 0.1 TH/MM3 Basophils # (Auto) 0.1 TH/MM3 CBC Comment DIFF FINAL Differential Comment Administered Medications Medications (Trade) Dose Ordered Sig/Mega Route PRN Reason Start Time Stop Time Status Last Admin Dose Admin Sodium Chloride (NS Flush) 2 ml UNSCH PRN IV FLUSH FLUSH AFTER USING IV ACCESS 03/14/18 21:00 03/15/18 06:35 Sodium Chloride (NS Flush) 2 ml BID IV FLUSH 03/14/18 21:00 03/21/18 09:28 Enoxaparin Sodium (Lovenox Inj) 40 mg Q24H SQ 03/14/18 22:00 03/20/18 20:56 Senna/Docusate Sodium (Betty-Colace) 1 tab BID PO 03/14/18 21:00 03/21/18 09:26 Sennosides (Senokot) 17.2 mg Q12H PRN PO Moderate constipation 03/14/18 21:00 03/16/18 21:17 Aripiprazole (Abilify) 5 mg DAILY PO 03/15/18 09:00 03/21/18 09:26 Famotidine (Pepcid) 20 mg Q12HR PO 03/15/18 09:00 03/21/18 09:26 Gabapentin (Neurontin) 200 mg TID PO 03/15/18 09:00 03/21/18 09:26 Hydroxyzine HCl (Atarax) 50 mg TID PO 03/15/18 09:00 03/21/18 09:26 Nortriptyline HCl (Pamelor) 25 mg HS PO 03/15/18 21:00 03/20/18 20:55 Propranolol HCl (Inderal) 20 mg Q12HR PO 03/15/18 09:00 03/21/18 09:26 Risperidone (risperDAL M-TAB) 3 mg Q12HR PO 03/15/18 09:00 03/21/18 09:00 Valproic Acid (Depakene) 500 mg Q8HR PO 03/14/18 22:00 03/21/18 06:46 Hydromorphone HCl (Dilaudid) 2 mg Q8H PRN PO Pain Management 1-10 03/15/18 14:45 03/21/18 06:47 Morphine Sulfate (Oramorph Sr) 15 mg BID PO 03/15/18 21:00 03/21/18 09:27 Alprazolam (Xanax) 0.5 mg Q8H PRN PO anxiety 03/15/18 15:00 03/20/18 22:41 Levothyroxine Sodium (Synthroid) 25 mcg DAILY@0600 PO 03/18/18 06:00 03/21/18 06:46 Nicotine (Habitrol 14 Mg Patch.24 Hr) 1 patch DAILY T-DERMAL 03/20/18 11:30 03/21/18 09:30 Miscellaneous Information 1 DAILY T-DERMAL 03/21/18 09:00 03/21/18 09:00 Tamsulosin HCl (Flomax) 0.4 mg DAILY PO 03/21/18 09:00 03/21/18 09:26 Objective Remarks GENERAL: young man, sitting up in bed in nad SKIN: Warm and dry. HEAD: Normocephalic. EYES: No injection or drainage. NECK: Supple, trachea midline. CARDIOVASCULAR: Regular rate and rhythm RESPIRATORY: Breath sounds equal bilaterally. No accessory muscle use. GASTROINTESTINAL: soft, nontender. +brown stool in colostomy EXTREMITIES: No cyanosis MUSCULOSKELETAL: patient with overall deconditioning. NEUROLOGICAL: awake and alert. normal speech. Assessment/Plan Problem List: (1) Colorectal cancer ICD Codes: C19 - Malignant neoplasm of rectosigmoid junction Plan: plan to start concurrent xeloda/xrt outpatient (2) Normocytic anemia ICD Codes: D64.9 - Anemia, unspecified Plan: --likely d/t blood loss from tumor --previously had intermittent bloody urine. --may also be component of inflammation, will check iron studies pre- transfusion. --s/p 2 units pRBC during this hospitalization. Assessment 42y/o male with locally advanced colorectal cancer admitted with dizziness. history of schizoaffective disorder, bipolar type. h/o COPD, peripheral neuropathy, right basilic vein deep vein thromboses, locally advanced perforated rectal cancer, gluteal and pelvic abscess, status post debridement, right thigh abscess, chronic anemia. h/o laparoscopic loop colostomy, colonoscopy, rectal biopsy, irrigation and debridement right thigh split-thickness skin graft, irrigation and debridement right hip, right thigh, right knee with would closure and wound VAC placement, skin graft placement. Plan 1. follow up with Dr. Webber in clinic 2. monitor CBC 3. ok to d/c Attending Statement The exam, history, and the medical decision-making described in the above note were completed with the assistance of the mid-level provider. I reviewed and agree with the findings presented. I attest that I had a [id number] encounter with the patient on the same day, and personally performed and documented my assessment and findings in the medical record. 42 yoM with rectal cancer; cleared for discharge from oncology standpoint. He will need close follow up in clinic with Dr. Webber on discharge. Brunilda Nieto Mar 21, 2018 13:55 Isa Hernandez MD Mar 22, 2018 00:20
[2018-03-21] MEDS: ALPRAZolam 0.5 MG TAB PO PRN (15:52)
[2018-03-21 16:00] VITALS: BP 123/70; PULSE 84; RESP 16; TEMP 98.4; O2SAT 93
[2018-03-21] MEDS ORDERED: HOSP BED2 (16:00)
--- NOTE | 2018-03-21 16:02 | HHI.FF ---
Face to Face Verification Diagnosis: (1) Schizoaffective disorder, bipolar type (2) Colorectal cancer Physical Therapy Order: Evaluate and Treat, Improve ambulation, Strength and gait training Home Health Nursing Order: Medical education Signs/symptoms of disease process Wound care and dressing changes Nursing assessment with vital signs I have seen patient Bertrand Price on 03/21/18. My clinical findings support the need for the requested home health care services because: Ltd mobility - disease progression Patient has SOB Deconditioned w/ increased weakness Limited ability to care for self Need for psychosocial assistance Impaired cognition/judgement High risk of falls Infection w/ risk of complications I certify that my clinical findings support that this patient is homebound because: Impaired cognitive ability/safety Unsteady gait/balance Unsafe to leave home unassisted Need for psychosocial assistance [id number] bed/chair Unable to use public transportation Reji Salgado DO Mar 21, 2018 16:02
--- NOTE | 2018-03-21 16:03 | HHI.PR ---
Objective Vitals Vital Signs Date Time Temp Pulse Resp B/P (MAP) Pulse Ox O2 Delivery O2 Flow Rate FiO2 03/21/18 12:00 98.3 83 16 122/78 (93) 93 03/21/18 09:18 Room Air 03/21/18 08:31 97.7 86 16 112/66 (81) 95 03/21/18 03:25 98.0 79 99/60 (73) 91 03/20/18 23:40 16 03/20/18 23:00 98.8 73 16 116/60 (78) 96 03/20/18 21:55 16 03/20/18 21:36 21 03/20/18 19:50 98.3 85 18 119/76 (90) 96 03/20/18 19:50 Room Air I/O 03/20/18 03/20/18 03/20/18 03/21/18 03/21/18 03/21/18 07:00 15:00 23:00 07:00 15:00 23:00 Intake Total 770 ml 1000 ml Output Total 2790 ml 2050 ml 800 ml Balance -2020 ml -1050 ml -800 ml Intake Oral 720 ml 1000 ml IV Total 50 ml Output Urine Total 2725 ml 2050 ml 800 ml Stool Total 65 ml # Bowel Movements 1 Result Diagram: 03/21/18 1149 03/21/18 0244 Objective Remarks GENERAL: Alert, oriented to person. No acute distress. SKIN: Warm and dry. HEAD: Normocephalic. EYES: No scleral icterus. No injection or drainage. NECK: Supple, trachea midline. No JVD or lymphadenopathy. CARDIOVASCULAR: Regular rate and rhythm without murmurs, gallops, or rubs. RESPIRATORY: Breath sounds equal bilaterally. No accessory muscle use. GASTROINTESTINAL: Abdomen soft, non-tender, nondistended. MUSCULOSKELETAL: No cyanosis, or edema. BACK: Nontender without obvious deformity. No CVA tenderness. Procedures NONE A/P Assessment and Plan 42 year old male with schizoaffective disorder, R basilic vein DVT, locally advanced perforated rectal cancer with associated gluteal and pelvic abscess s/ p debridement, and chronic anemia admitted on 03/15 for weakness, dizziness, and anemia during a radiation treatment. On presentation he was found to have possible pneumonia or early UTI as well. Anemia - Stable, Hb up to 8.8 after being transfused one unit - Heme/onc following Urinary retention - Maintain Chaidez catheter - will probably go home with Chaidez. - Continue Tamsulosin 0.4mg Qday. Right lower lobe pneumonia Possible aspiration pneumonia - Patient received Zosyn. ID discontinued Zosyn on 03/20/2018. Rectal cancer - Heme/onc following - Radiation as outpatient Un-stageable R heel, stage IV R sacral, and R thigh wounds - Wound care following - Position changes Q2H - Follows with Dr. Fregoso as outpatient Schizoaffective disorder - Continue home medications Obstructive uropathy - Chaidez in place DVT prophylaxis: SCDs Discussed with CM - Will order hospital bed (specialty bed) and home health. Once arranged, patient can likely be discharged home. Reji Salgado DO Mar 21, 2018 16:03
[2018-03-21 19:45] VITALS: BP 119/75; PULSE 95; RESP 18; TEMP 99.6; O2SAT 95
[2018-03-21] MEDS: NORTRIPTYLINE HCL 25 MG CAP PO SCH (20:42)
[2018-03-21] MEDS: ENOXAPARIN SODIUM 40 MG/0.4 ML SYRINGE SQ SCH (20:44)
[2018-03-21 23:28] VITALS: BP 105/60; PULSE 82; RESP 20; TEMP 98.8; O2SAT 91
[2018-03-22 04:27] VITALS: BP 91/58; PULSE 85; RESP 18; TEMP 98; O2SAT 94
[2018-03-22] MEDS: LEVOTHYROXINE SODIUM 25 MCG TAB PO SCH (06:38)
[2018-03-22] MEDS: VALPROIC ACID 250 MG CAP PO SCH ×3 (06:38→22:00)
[2018-03-22 09:01] VITALS: BP 113/58; PULSE 83; RESP 17; TEMP 97.5; O2SAT 98
[2018-03-22] MEDS: NICOTINE 14 MG/24 HR PATCH T-DERMAL SCH (09:06)
[2018-03-22] MEDS: REMOVE OLD PATCH T-DERMAL SCH (09:06)
[2018-03-22] MEDS: hydrOXYzine HCL 50 MG TAB PO SCH ×3 (09:07→17:44)
[2018-03-22] MEDS: MORPHINE SULFATE 15 MG CONTROLLED RELEASE TAB PO SCH ×2 (09:07→20:30)
[2018-03-22] MEDS: DOCUSATE SODIUM 50 MG/SENNA 8.6 MG TAB PO SCH ×2 (09:07→20:30)
[2018-03-22] MEDS: FAMOTIDINE 20 MG TAB PO SCH ×2 (09:07→21:00)
[2018-03-22] MEDS: SODIUM CHLORIDE 0.9% FLUSH 10 ML FLUSH IV FLUSH SCH ×2 (09:07→20:30)
[2018-03-22] MEDS: TAMSULOSIN HCL 0.4 MG CAP PO SCH (09:07)
[2018-03-22] MEDS: GABAPENTIN 100 MG CAP PO SCH ×4 (09:07→17:52)
[2018-03-22] MEDS: ARIPiprazole 5 MG TAB PO SCH (09:07)
[2018-03-22] MEDS: PROPRANOLOL HCL 20 MG TAB PO SCH ×2 (09:07→20:30)
[2018-03-22] MEDS: risperiDONE ODT 3 MG TAB PO SCH ×2 (09:07→20:30)
[2018-03-22 11:56] VITALS: BP 107/64; PULSE 74; RESP 17; TEMP 97.9; O2SAT 97
--- NOTE | 2018-03-22 14:27 | HHI.PR ---
Subjective Remarks Follow-up for rectal cancer, suspected UTI versus pneumonia. Patient is currently doing well, remains somewhat confused but in a pleasant mood. Chaidez cath bag shows normal color urine. Objective Vitals Vital Signs Date Time Temp Pulse Resp B/P (MAP) Pulse Ox O2 Delivery O2 Flow Rate FiO2 03/22/18 11:56 97.9 74 17 107/64 (78) 97 03/22/18 09:01 97.5 83 17 113/58 (76) 98 03/22/18 04:27 98.0 85 18 91/58 (69) 94 03/21/18 23:28 98.8 82 20 105/60 (75) 91 03/21/18 21:43 16 03/21/18 20:45 Room Air 03/21/18 19:45 99.6 95 18 119/75 (90) 95 03/21/18 16:00 98.4 84 16 123/70 (87) 93 I/O 03/21/18 03/21/18 03/21/18 03/22/18 03/22/18 03/22/18 07:00 15:00 23:00 07:00 15:00 23:00 Output Total 800 ml 1600 ml 100 ml Balance -800 ml -1600 ml -100 ml Output Urine Total 800 ml 1600 ml Stool Total 100 ml Result Diagram: 03/21/18 1149 03/21/18 0244 Objective Remarks GENERAL: Alert, oriented to person. No acute distress. SKIN: Warm and dry. HEAD: Normocephalic. EYES: No scleral icterus. No injection or drainage. NECK: Supple, trachea midline. No JVD or lymphadenopathy. CARDIOVASCULAR: Regular rate and rhythm without murmurs, gallops, or rubs. RESPIRATORY: Breath sounds equal bilaterally. No accessory muscle use. GASTROINTESTINAL: Abdomen soft, non-tender, nondistended. MUSCULOSKELETAL: No cyanosis, or edema. BACK: Nontender without obvious deformity. No CVA tenderness. Procedures NONE A/P Assessment and Plan 42 year old male with schizoaffective disorder, R basilic vein DVT, locally advanced perforated rectal cancer with associated gluteal and pelvic abscess s/ p debridement, and chronic anemia admitted on 03/15 for weakness, dizziness, and anemia during a radiation treatment. On presentation he was found to have possible pneumonia or early UTI as well. Anemia - Stable, Hb 9.6 on 03/21/2018. - Heme/onc following Urinary retention - Maintain Chaidez catheter - will probably go home with Chaidez. - Continue Tamsulosin 0.4mg Qday. Right lower lobe pneumonia Possible aspiration pneumonia - Patient received Zosyn. ID discontinued Zosyn on 03/20/2018. Rectal cancer - Heme/onc following - Radiation as outpatient Un-stageable R heel, stage IV R sacral, and R thigh wounds - Wound care following - Position changes Q2H - Follows with Dr. Fregoso as outpatient Schizoaffective disorder - Continue home medications Obstructive uropathy - Chaidez in place DVT prophylaxis: SCDs Discussed with CM - Will order hospital bed (specialty bed) and home health. Once arranged, patient can likely be discharged home. Reji Salgado DO Mar 22, 2018 2:27 pm
[2018-03-22] MEDS: ALPRAZolam 0.5 MG TAB PO PRN ×2 (14:49→22:38)
[2018-03-22] MEDS: HYDROmorphone HCL PF 2 MG/ML VIAL IV PUSH PRN (15:09)
[2018-03-22 16:30] VITALS: BP 102/56; PULSE 81; RESP 16; TEMP 98.4; O2SAT 95
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
[2018-03-22] MEDS ORDERED: HALOPERIDOL LACTATE 5 MG/ML AMP IM SCH (17:45)
[2018-03-22 20:00] VITALS: BP 119/64; PULSE 92; RESP 16; TEMP 99.6; O2SAT 96
[2018-03-22] MEDS: HALOPERIDOL 2 MG TAB PO SCH (20:30)
[2018-03-22] MEDS: NORTRIPTYLINE HCL 25 MG CAP PO SCH (20:30)
[2018-03-22] MEDS: ENOXAPARIN SODIUM 40 MG/0.4 ML SYRINGE SQ SCH (20:30)
[2018-03-22] MEDS: HYDROmorphone HCL 2 MG TAB PO PRN (20:30)
[2018-03-23] VITALS: BP 103/55; PULSE 76; RESP 16; TEMP 99.7; O2SAT 95
[2018-03-23 04:00] VITALS: BP 101/57; PULSE 73; RESP 16; TEMP 97.7; O2SAT 98
[2018-03-23] MEDS: HALOPERIDOL 2 MG TAB PO SCH (05:42)
[2018-03-23] MEDS: VALPROIC ACID 250 MG CAP PO SCH ×3 (05:42→22:19)
[2018-03-23] MEDS: LEVOTHYROXINE SODIUM 25 MCG TAB PO SCH (05:42)
[2018-03-23] MEDS: HYDROmorphone HCL 2 MG TAB PO PRN ×2 (06:22→14:47)
[2018-03-23 07:00] VITALS: BP 112/62; PULSE 80; RESP 16; TEMP 98.2; O2SAT 97
[2018-03-23 07:44] LABS: CREATININE 0.55 MG/DL (0.60-1.30)
[2018-03-23] MEDS: risperiDONE ODT 3 MG TAB PO SCH ×2 (09:00→22:21)
[2018-03-23] MEDS: NICOTINE 14 MG/24 HR PATCH T-DERMAL SCH (09:00)
[2018-03-23] MEDS: ARIPiprazole 5 MG TAB PO SCH (09:00)
[2018-03-23] MEDS: REMOVE OLD PATCH T-DERMAL SCH (09:00)
[2018-03-23] MEDS: hydrOXYzine HCL 50 MG TAB PO SCH (09:00)
[2018-03-23] MEDS: MORPHINE SULFATE 15 MG CONTROLLED RELEASE TAB PO SCH ×2 (09:00→22:21)
[2018-03-23] MEDS: TAMSULOSIN HCL 0.4 MG CAP PO SCH (09:00)
[2018-03-23] MEDS: PROPRANOLOL HCL 20 MG TAB PO SCH ×2 (09:00→22:21)
[2018-03-23] MEDS: SODIUM CHLORIDE 0.9% FLUSH 10 ML FLUSH IV FLUSH SCH ×2 (09:00→22:21)
[2018-03-23] MEDS: GABAPENTIN 100 MG CAP PO SCH ×3 (09:00→18:00)
[2018-03-23] MEDS: FAMOTIDINE 20 MG TAB PO SCH ×2 (09:00→22:21)
[2018-03-23] MEDS: DOCUSATE SODIUM 50 MG/SENNA 8.6 MG TAB PO SCH ×2 (09:00→21:00)
[2018-03-23 11:00] VITALS: BP 100/63; PULSE 80; RESP 18; TEMP 98.7; O2SAT 99
--- NOTE | 2018-03-23 11:01 | PD.ONC.PN ---
Subjective Subjective Remarks Tmax 99.7 overnight. Patient seen at 9AM. He is in good spirits and states he feels good and wants to go home. Objective Data Date Time Temp Pulse Resp B/P (MAP) Pulse Ox O2 Delivery O2 Flow Rate FiO2 03/23/18 07:00 Room Air 03/23/18 07:00 98.2 80 16 112/62 (79) 97 03/23/18 04:00 97.7 73 16 101/57 (72) 98 03/23/18 00:00 99.7 76 16 103/55 (71) 95 03/22/18 20:00 Room Air 03/22/18 20:00 99.6 92 16 119/64 (82) 96 03/22/18 16:30 98.4 81 16 102/56 (71) 95 03/22/18 11:56 97.9 74 17 107/64 (78) 97 03/23/18 03/23/18 03/23/18 07:00 15:00 23:00 Intake Total 0 ml Output Total 1300 ml Balance -1300 ml Result Diagram: 03/21/18 1149 03/23/18 0542 Laboratory Results Laboratory Tests Test 03/23/18 05:42 Creatinine 0.55 MG/DL Estimat Glomerular Filtration Rate 165 ML/MIN Administered Medications Medications (Trade) Dose Ordered Sig/Mega Route PRN Reason Start Time Stop Time Status Last Admin Dose Admin Sodium Chloride (NS Flush) 2 ml UNSCH PRN IV FLUSH FLUSH AFTER USING IV ACCESS 03/14/18 21:00 03/15/18 06:35 Sodium Chloride (NS Flush) 2 ml BID IV FLUSH 03/14/18 21:00 03/23/18 09:00 Enoxaparin Sodium (Lovenox Inj) 40 mg Q24H SQ 03/14/18 22:00 03/22/18 20:30 Senna/Docusate Sodium (Betty-Colace) 1 tab BID PO 03/14/18 21:00 03/23/18 09:00 Sennosides (Senokot) 17.2 mg Q12H PRN PO Moderate constipation 03/14/18 21:00 03/16/18 21:17 Aripiprazole (Abilify) 5 mg DAILY PO 03/15/18 09:00 03/23/18 09:00 Famotidine (Pepcid) 20 mg Q12HR PO 03/15/18 09:00 03/23/18 09:00 Hydroxyzine HCl (Atarax) 50 mg TID PO 03/15/18 09:00 03/23/18 09:00 Nortriptyline HCl (Pamelor) 25 mg HS PO 03/15/18 21:00 03/22/18 20:30 Propranolol HCl (Inderal) 20 mg Q12HR PO 03/15/18 09:00 03/23/18 09:00 Risperidone (risperDAL M-TAB) 3 mg Q12HR PO 03/15/18 09:00 03/23/18 09:00 Valproic Acid (Depakene) 500 mg Q8HR PO 03/14/18 22:00 03/23/18 05:42 Hydromorphone HCl (Dilaudid) 2 mg Q8H PRN PO Pain Management 1-10 03/15/18 14:45 03/23/18 06:22 Morphine Sulfate (Oramorph Sr) 15 mg BID PO 03/15/18 21:00 03/23/18 09:00 Alprazolam (Xanax) 0.5 mg Q8H PRN PO anxiety 03/15/18 15:00 03/22/18 22:38 Levothyroxine Sodium (Synthroid) 25 mcg DAILY@0600 PO 03/18/18 06:00 03/23/18 05:42 Nicotine (Habitrol 14 Mg Patch.24 Hr) 1 patch DAILY T-DERMAL 03/20/18 11:30 03/23/18 09:00 Miscellaneous Information 1 DAILY T-DERMAL 03/21/18 09:00 03/23/18 09:00 Tamsulosin HCl (Flomax) 0.4 mg DAILY PO 03/21/18 09:00 03/23/18 09:00 Hydromorphone HCl (Dilaudid Pf Inj) 1 mg DAILY PRN IV PUSH BREAKTHROUGH PAIN 03/22/18 09:00 03/22/18 15:09 Gabapentin (Neurontin) 300 mg TID PO 03/22/18 18:00 03/23/18 09:00 Haloperidol (Haldol) 2 mg Q8H PO 03/22/18 22:00 03/23/18 05:42 Objective Remarks GENERAL: young man, upright in bed eating breakfast. SKIN: Warm and dry. HEAD: Normocephalic. EYES: No injection or drainage. NECK: Supple, trachea midline. CARDIOVASCULAR: Regular rate and rhythm RESPIRATORY: Breath sounds equal bilaterally. No accessory muscle use. GASTROINTESTINAL: soft, nontender. +colostomy bag in place with brown stool EXTREMITIES: No cyanosis MUSCULOSKELETAL: ++ overall deconditioning. NEUROLOGICAL: awake, alert. normal speech. Assessment/Plan Problem List: (1) Colorectal cancer ICD Codes: C19 - Malignant neoplasm of rectosigmoid junction Plan: plan to start concurrent xeloda/xrt outpatient (2) Normocytic anemia ICD Codes: D64.9 - Anemia, unspecified Plan: --likely d/t blood loss from tumor --previously had intermittent bloody urine. --may also be component of inflammation --s/p 2 units pRBC during this hospitalization. Assessment 42y/o male with locally advanced colorectal cancer admitted with dizziness. history of schizoaffective disorder, bipolar type. h/o COPD, peripheral neuropathy, right basilic vein deep vein thromboses, locally advanced perforated rectal cancer, gluteal and pelvic abscess, status post debridement, right thigh abscess, chronic anemia. h/o laparoscopic loop colostomy, colonoscopy, rectal biopsy, irrigation and debridement right thigh split-thickness skin graft, irrigation and debridement right hip, right thigh, right knee with would closure and wound VAC placement, skin graft placement. Plan 1. clear for discharge once safe discharge arranged. 2. follow up with Dr. Webber in clinic Brunilda Nieto Mar 23, 2018 11:01
--- NOTE | 2018-03-23 14:24 | HHI.PR ---
Subjective Remarks Follow-up for rectal cancer, suspected UTI versus pneumonia. Patient is in good mood. No acute concerns. Seems more coherent today. Objective Vitals Vital Signs Date Time Temp Pulse Resp B/P (MAP) Pulse Ox O2 Delivery O2 Flow Rate FiO2 03/23/18 11:00 98.7 80 18 100/63 (75) 99 03/23/18 07:00 Room Air 03/23/18 07:00 98.2 80 16 112/62 (79) 97 03/23/18 04:00 97.7 73 16 101/57 (72) 98 03/23/18 00:00 99.7 76 16 103/55 (71) 95 03/22/18 20:00 Room Air 03/22/18 20:00 99.6 92 16 119/64 (82) 96 03/22/18 16:30 98.4 81 16 102/56 (71) 95 I/O 03/22/18 03/22/18 03/22/18 03/23/18 03/23/18 03/23/18 06:59 14:59 22:59 06:59 14:59 22:59 Intake Total 200 ml 0 ml Output Total 1600 ml 100 ml 2250 ml 3000 ml Balance -1600 ml -100 ml -2250 ml -2800 ml 0 ml Intake Oral 200 ml 0 ml Output Urine Total 1600 ml 1900 ml 3000 ml Stool Total 100 ml 350 ml Result Diagram: 03/21/18 1149 03/23/18 0542 Objective Remarks GENERAL: Alert, oriented to person. No acute distress. SKIN: Warm and dry. HEAD: Normocephalic. EYES: No scleral icterus. No injection or drainage. NECK: Supple, trachea midline. No JVD or lymphadenopathy. CARDIOVASCULAR: Regular rate and rhythm without murmurs, gallops, or rubs. RESPIRATORY: Breath sounds equal bilaterally. No accessory muscle use. GASTROINTESTINAL: Abdomen soft, non-tender, nondistended. MUSCULOSKELETAL: No cyanosis, or edema. BACK: Nontender without obvious deformity. No CVA tenderness. Procedures NONE A/P Assessment and Plan 42 year old male with schizoaffective disorder, R basilic vein DVT, locally advanced perforated rectal cancer with associated gluteal and pelvic abscess s/ p debridement, and chronic anemia admitted on 03/15 for weakness, dizziness, and anemia during a radiation treatment. On presentation he was found to have possible pneumonia or early UTI as well. Anemia - Stable, Hb 9.6 on 03/21/2018. - Heme/onc following Urinary retention - Maintain Chaidez catheter - will probably go home with Chaidez. - Continue Tamsulosin 0.4mg Qday. Right lower lobe pneumonia Possible aspiration pneumonia - Patient received Zosyn. ID discontinued Zosyn on 03/20/2018. Rectal cancer - Heme/onc following - Radiation as outpatient Un-stageable R heel, stage IV R sacral, and R thigh wounds - Wound care following - Position changes Q2H - Follows with Dr. Fregoso as outpatient Schizoaffective disorder Hallucinations. - Continue home medications. Appreciate psychiatry input. - Discussed with Psychiatrist who will adjust patient's medications. Currently on Risperidone, Haloperidol. Obstructive uropathy - Chaidez in place DVT prophylaxis: SCDs Pt can be discharged once home health is arranged. Reji Salgado DO Mar 23, 2018 2:24 pm
[2018-03-23] MEDS: HYDROmorphone HCL PF 2 MG/ML VIAL IV PUSH PRN (14:46)
[2018-03-23] MEDS: ALPRAZolam 0.5 MG TAB PO PRN (14:47)
[2018-03-23 15:00] VITALS: BP 104/59; PULSE 93; RESP 16; TEMP 99.5; O2SAT 95
--- NOTE | 2018-03-23 15:10 | HHI.HCPN ---
Reason for visit a. To assist with evaluation and management of symptoms including:agitation/ hallucinations, pain b. To assist medical decision maker(s) with: better understanding of current medical conditions; weighing benefits/burdens of medical treatment options; making medical treatment decisions. Subjective/Interval History Pt seen to follow up on comfort, goals with decision maker. received call from pt mother prior my arrival to unit requesting update on possible discharge status etc. updated her based on chart review and I advised that I would update further after actually seeing patient. Patient mother indicates that she was able to speak further with patient regarding all the things we discussed yesterday. He understands he has cancer that still might may not be fully insightful. He is indicated to her that he wants to keep trying radiation and chemo if it will help him a little longer. She is in agreement with this though does indicate if his quality of life is impaired or declines then at that point she will likely help him transition to hospice. Advised that he can transition to hospice at any point ongoing once he is home, and even when he is still ongoing with chemo or radiation if he does not desire to continue they can call hospice services at any time. Patient remained stable. Undergoing palliative XRT. Chemistry stable. Oncology following, pt cleared for discharge once medical attending clears. pt to follow -up with oncology outpatient. Psychiatry was consulted yesterday by medical attending, discussed with Dr. Solorzano who has seen patient; he will follow, make recommendations as needed. Discussed with medical attending. Patient seen in room, mother is now at bedside. Patient endorses feeling okay though he really wants to go home, they have been telling him every day that may be another day or 2 and he really wants to leave today. Advised that medical attending and case management still coordinating to meet outpatient discharge needs with home health etc. that hopefully in the next day or so if things continue to be stable he may discharge. He endorses pain is okay. He is mostly oriented though with very limited insight. Not currently having hallucinations. Review again with mother as above discussed on the telephone. Their goal is to get patient out with home health continue palliative treatments , aware they can enroll in hospice whenever patient is ready. Discussed with medical attending, psychiatry Dr. Solorzano . Family/friend interactions * see above . Advance Directives Living Will: Never completed Health Care Surrogate: Never completed Durable Power of Tire Finisher: Never completed Objective Vital Signs Date Time Temp Pulse Resp B/P (MAP) Pulse Ox O2 Delivery O2 Flow Rate FiO2 03/23/18 11:00 98.7 80 18 100/63 (75) 99 03/23/18 07:00 Room Air 03/23/18 07:00 98.2 80 16 112/62 (79) 97 03/23/18 04:00 97.7 73 16 101/57 (72) 98 03/23/18 00:00 99.7 76 16 103/55 (71) 95 03/22/18 20:00 Room Air 03/22/18 20:00 99.6 92 16 119/64 (82) 96 03/22/18 16:30 98.4 81 16 102/56 (71) 95 Intake & Output 03/23/18 03/23/18 07:00 19:00 Intake Total 200 ml Output Total 3000 ml Balance -2800 ml Intake Oral 200 ml Output Urine Total 3000 ml Physical Exam CONSTITUTIONAL/GENERAL: This is a thin, frail ill appearing male TUBES/LINES/DRAINS: Peripheral IV upper extremity, ostomy left abdomen, Chaidez catheter SKIN: No jaundice, rashes, or lesions. Multiple scars to lower extremities. Wound to back/sacrum reported did not visualize. Skin warm and dry. CARDIOVASCULAR: Regular rate and rhythm without murmur.No JVD. Peripheral pulses symmetric. RESPIRATORY/CHEST: Symmetric, unlabored respirations. Clear to auscultation. Breath sounds equal bilaterally. No wheezes, rales, or rhonchi. GASTROINTESTINAL: Abdomen soft, flat, non-tender, nondistended. No hepato- splenomegaly, or palpable masses.+ Ostomy present left abdomen draining some brown loose stool. No guarding. Bowel sounds present. GENITOURINARY: Without palpable bladder distension. Chaidez catheter in place. MUSCULOSKELETAL: Extremities without clubbing, cyanosis, or edema. No joint tenderness or effusion noted. No calf tenderness. No mottling or clubbing. Extremities very thin with muscle atrophy evident. NEUROLOGICAL: Awake and alert-oriented 2. Some very limited insight into hospitalizations and illness. cooperative. Moves all 4 extremities with generalized weakness. Follows commands. PSYCHIATRIC: + No anxiety or hallucinations evident today Diagnostic Tests Laboratory Laboratory Tests Test 03/21/18 02:44 03/21/18 11:49 03/23/18 05:42 Creatinine 0.61 MG/DL (0.60-1.30) 0.55 MG/DL (0.60-1.30) Estimat Glomerular Filtration Rate 146 ML/MIN (>89) 165 ML/MIN (>89) White Blood Count 14.0 TH/MM3 (4.0-11.0) Red Blood Count 3.33 MIL/MM3 (4.50-5.90) Hemoglobin 9.6 GM/DL (13.0-17.0) Hematocrit 29.5 % (39.0-51.0) Mean Corpuscular Volume 88.7 FL (80.0-100.0) Mean Corpuscular Hemoglobin 28.9 PG (27.0-34.0) Mean Corpuscular Hemoglobin Concent 32.6 % (32.0-36.0) Red Cell Distribution Width 20.6 % (11.6-17.2) Platelet Count 353 TH/MM3 (150-450) Mean Platelet Volume 7.0 FL (7.0-11.0) Neutrophils (%) (Auto) 83.3 % (16.0-70.0) Lymphocytes (%) (Auto) 5.3 % (9.0-44.0) Monocytes (%) (Auto) 10.4 % (0.0-8.0) Eosinophils (%) (Auto) 0.6 % (0.0-4.0) Basophils (%) (Auto) 0.4 % (0.0-2.0) Neutrophils # (Auto) 11.7 TH/MM3 (1.8-7.7) Lymphocytes # (Auto) 0.7 TH/MM3 (1.0-4.8) Monocytes # (Auto) 1.5 TH/MM3 (0-0.9) Eosinophils # (Auto) 0.1 TH/MM3 (0-0.4) Basophils # (Auto) 0.1 TH/MM3 (0-0.2) CBC Comment DIFF FINAL Differential Comment Result Diagram: 03/21/18 1149 03/23/18 0542 Microbiology Microbiology Date/Time Source Procedure Growth Status 03/14/18 17:52 Blood Peripheral Aerobic Blood Culture - Final NO GROWTH IN 5 DAYS Complete 03/14/18 17:52 Blood Peripheral Anaerobic Blood Culture - Final NO GROWTH IN 5 DAYS Complete 03/15/18 21:58 Urine Random Urine Legionella Antigen - Final PRESUMPTIVE NEGATIVE FOR LEGIONELLA P... Complete 03/15/18 21:58 Urine Random Urine Streptococcus pneumoniae Antigen (M - Final PRESUMPTIVE NEGATIVE FOR STREPTOCOCCU... Complete Imaging Last Impressions Abdomen/Pelvis CT 03/15/18 0000 Signed Impressions: CONCLUSION: 1. Significant interval progression of rectal mass with interval invasion of n early the entire sacrum and adjacent gluteal musculature. Retroperitoneal adeno suzanna. Otherwise, no gross distant metastatic disease. 2. Right lung base airspace consolidation. Cannot exclude pneumonia or aspirat ion in the appropriate clinical setting. ` Chest X-Ray 03/14/18 1743 Signed Impressions: CONCLUSION: Hyperinflation otherwise negative. CT Angiography 03/14/18 0000 Signed Impressions: CONCLUSION: 1. Probable airspace disease right lower lobe consistent with an inflammatory process. 2. Large gallstone Assessment and Plan Disease Oriented Problem List: (1) Sepsis (2) UTI (urinary tract infection) (3) Pneumonia (4) Normocytic anemia (5) Schizoaffective disorder, bipolar type (6) Colorectal cancer (7) Depression (8) Anxiety Symptom Scale: (1) Anxiety 0-10 Scale: Unable to quantify (2) Pain 0-10 Scale: Unable to quantify Pertinent Non-Medical Issues Psychosocial:Never , no children. Lives with his mother. Recently moved to [facility] from [facility]. Is generally always lived with a roommate. Has been unable to work secondary to his schizophrenia conditions. Spiritual: Does not want [facility] visit Legal:Patient with long history of schizoaffective disorder. May be able to participate at times in decision-making however lacks full ability to weigh benefits/burdens needed for informs decision-making. Recommend mother, proxy be included for all decisions. (Not , no children, father mother appropriate proxy per [place] statutes). Ethical issues impacting care: No ethical issues identified Important Contacts Jennifer Price (Mother) [phone] Prognosis This patient was admitted for leukocytosis, weakness. Weakness chronic. He has known rectal carcinoma, currently undergoing treatment with Xeloda. Plan for outpatient radiation therapy. Has had disease progression per recent imaging per oncology. May continue with chemo, XRT however this would be palliative not curative. Patient remains high risk for continued decline and complications secondary to debilitated status and disease process. Appropriate for hospice if goals compatible. Code Status: No Code Plan Legal decision maker:Patient with long history of schizoaffective disorder. May be able to participate at times in decision-making however lacks full ability to weigh benefits/burdens needed for informs decision-making. Recommend mother, proxy be included for all decisions. (Not , no children , father mother appropriate proxy per [place] statutes). Goals: Pt,mother, wishes to continue hospital-based treatments with the hope of getting him back home with home health. She does wish to try to pursue palliative chemotherapy and radiation as long as this will provide patient with some quality of life however she is also aware of hospice services. She indicates that if he does not tolerate further cancer treatments or he no longer is gaining additional quality of life with them she will elect hospice. CODE STATUS: DNR SYMPTOMS: --Anxiety/agitation-patient with long history of schizoaffective disorder mother indicates he was diagnosed at age 14. He has not been able to have a job or maintain other normal functions in society secondary to this. He has not seen outpatient psychiatry since October of this year. In the past he was on Haldol scheduled. He is currently on multiple medications including Risperdal and Abilify, discussed with medical attending addition of Haldol for hallucinations. Medical has added Shakirl, Dr Solorzano following, evaluated. --Pain-patient with long history of chronic pain from his multiple wounds, as well as neuropathic pain to lower extremities. gabapentin has been increased to 300 mg TID. May benefit from increase in dosing, discussed with medical attending medical attending will adjust Palliative care will continue to follow during hospital course as condition evolves, to assist patient/decision-maker with understanding of medical conditions, weighing benefits/burdens of treatment options, for clarification of goals of treatment. Additionally will assist with any symptoms of palliative concern -Discussed all with medical attending, primary nurse Time Spent Total Floor Time (mins): 35 (chart review , PE, d/w pt, d/w mother/proxy, d/w psychiatry) Attestation To help prompt me to consider important information that might be impacting today's encounter and assessment, information from prior notes written by myself or my colleagues may have been "brought forward" into today's note. My signature on this note, however, is an attestation that I personally performed the exam, history, and/or decision-making noted today, and, unless otherwise indicated, the interactions with patient, family, and staff as well as the review of records all occurred today. I also attest that the listed assessment and stated plan reflect my best clinical judgment today based on the combination of historical information, prior notes, and today's exam/ interactions. When time spent is documented, it refers only to time spent today by the signer, or if indicated, combined time spent today by collaborating physician/nurse practitioner. Mansaa Payton Mar 23, 2018 15:10
--- NOTE | 2018-03-23 15:22 | PD.PSY.CON ---
Provisional Diagnosis Admission Date March 14, 2018 at 20:54 [place] I. Schizoaffective disorder, bipolar type, delirium due to underlying medical conditions [place] II. Deferred [place] III. Urinary retention, anemia, rectal cancer History of Present Illness Service Psychiatry Consult Requested By Medicine Reason for Consult Psychosis Primary Care Physician DO FLOWER Andre The patient is a 42 year-old man, domiciled with his mother in [place], single, unemployed, with extensive psychiatric history of schizoaffective disorder bipolar type, cannabis use disorder, 3 previous psychiatric hospitalizations, last hospitalization was about 2 years ago, established outpatient care with a private psychiatrist in [place] [facility], he was on Haldol decanoate 250 mg monthly, last dose was November 04, 2017, Risperdal 3 mg twice a day, Depakote 500 mg TID, hydroxyzine 25 mg 3 times a day , he is also in Abilify 5, haldol 2 mg q8h, hydroxyzine 50 mg tid, propranolol 20 mg twice daily, he has not been seen outpatient psychiatry in the last months due to "insurance issues", but he claims that he has been compliant with his medications, his mother confirms this information, he has medical history of, R basilic vein DVT, locally advanced perforated rectal cancer with associated gluteal and pelvic abscess s/p debridement, and chronic anemia admitted on 03/15 for weakness, dizziness, and anemia during a radiation treatment. On presentation he was found to have possible pneumonia or early UTI as well. Now admitted due to Anemia, Urinary retention, Right lower lobe pneumonia. Consulted to psychiatry due to altered mental status and visual hallucinations. EMR was reviewed. The case was discussed with primary medical team. Collateral information from his mother Jennifer Price, was obtained. On psychiatric evaluation the patient is found talking by phone, really pretending that he was talking by phone with his mother, disorganized, a little bit restless and agitated, but redirectable. Surprisingly, the patient immediately recognized me from our previous encounter in October 2017. The patient reports that he feels much better. Still restrained in 2 points. he is oriented 3, he states that he is in [place], he knows the date, he knows who is the cost recorder. However, he does have fluctuation of consciousness and mild to moderate attention deficit. At times becomes quite disorganized, pressured speech, incoherent and tangential. He also has been presenting active visual hallucinations has been agitated. The patient denies depression, denies anxiety, denies lizandro and psychosis. He denies suicidal enemas ideation, he denies visual and auditory hallucinations at the moment. The patient denies the use of illegal drugs or alcohol. Review of Systems Constitutional: DENIES: Diaphoretic episodes, Fatigue, Fever, Weight gain, Weight loss, Chills, Dizziness, Change in appetite, Night Sweats Endocrine: DENIES: Heat/cold intolerance, Polydipsia, Polyuria, Polyphagia Eyes: DENIES: Blurred vision, Diplopia, Eye inflammation, Eye pain, Vision loss , Photosensitivity, Double Vision Ears, nose, mouth, throat: DENIES: Tinnitus, Hearing loss, Vertigo, Nasal discharge, Oral lesions, Throat pain, Hoarseness, Ear Pain, Running Nose, Epistaxis, Sinus Pain, Toothache, Odynophagia Respiratory: DENIES: Apneas, Cough, Snoring, Wheezing, Hemoptysis, Sputum production, Shortness of breath Cardiovascular: DENIES: Chest pain, Palpitations, Syncope, Dyspnea on Exertion , PND, Lower Extremity Edema, Orthopnea, Claudication Gastrointestinal: DENIES: Abdominal pain, Black stools, Bloody stools, Constipation, Diarrhea, Nausea, Vomiting, Difficulty Swallowing, Anorexia Genitourinary: DENIES: Sexual dysfunction, Urinary frequency, Urinary incontinence, Urgency, Hematuria, Dysuria, Nocturia, Penile Discharge, Testicular Pain, Testicular Swelling Musculoskeletal: DENIES: Joint pain, Muscle aches, Stiffness, Joint Swelling, Back pain, Neck pain Integumentary: DENIES: Abnormal pigmentation, Nail changes, Pruritus, Rash Hematologic/lymphatic: DENIES: Bruising, Lymphadenopathy Immunologic/allergic: DENIES: Eczema, Urticaria Psychiatric: COMPLAINS OF: Mood changes, Hallucinations, Agitation, Delusions, DENIES: Anxiety, Confusion, Depression, Suicidal Ideation, Homicidal Ideation Past Family Social History Coded Allergies: diphenhydramine (Verified Adverse Reaction, Unknown, 03/14/18) Active Scripts Valproic Acid (Depakene) 250 Mg Cap, 500 MG PO Q8HR for Control Seizures, #90 CAP Prov:Randi Villagran 12/29/17 Aripiprazole (Aripiprazole) 5 Mg Tab, 5 MG PO DAILY for Control Seizures, #30 TAB Prov:Randi Villagran 12/29/17 Risperidone Odt (Risperdal M-Tab) 3 Mg Tab, 3 MG PO Q12HR for Control Anxiety, # 20 TAB Prov:Randi Villagran 12/29/17 Famotidine (Famotidine) 20 Mg Tab, 20 MG PO Q12HR for Manage Heartburn, #60 TAB Prov:Randi Villagran 12/29/17 Gabapentin (Gabapentin) 100 Mg Cap, 200 MG PO TID for Pain Management, #30 CAP Prov:Randi Villagran 12/29/17 Hydroxyzine HCl (Hydroxyzine HCl) 50 Mg Tab, 50 MG PO TID for puritis MDD 150 for 30 Days, TAB 0 Refills Prov:Randi Villagran 12/29/17 Propranolol (Propranolol) 20 Mg Tab, 20 MG PO Q12HR for Blood Pressure Management, #60 TAB 0 Refills Prov:Randi Villagran 12/29/17 Fluconazole (Diflucan) 200 Mg Tab, 400 MG PO DAILY for Infection for 14 Days, # 28 TAB 0 Refills Prov:María Upton MD 12/28/17 Nortriptyline (Nortriptyline) 25 Mg Cap, 25 MG PO HS for Pain Management, #30 CAP Prov:Amuary Lainez MD 12/19/17 Alprazolam (Xanax) 0.5 Mg Tab, 0.5 MG PO Q8H Y for anxiety, #10 TAB Prov:Amaury Lainez MD 12/16/17 Reported Medications Hydromorphone (Dilaudid) 2 Mg Tab, 2 MG PO Q8H Y for Pain Management, TAB 0 Refills 03/14/18 Oxycodone-Acetaminophen (Oxycodone-Acetaminophen) 10-325 mg Tab, 1 TAB PO Q6H Y for PAIN, #60 TAB 0 Refills 03/14/18 Morphine ER (Ms Contin) 15 Mg Tab, 15 MG PO BID for Pain Management, TAB 0 Refills 03/14/18 Current Medications Medications (Trade) Dose Ordered Sig/Mega Route Start Time Stop Time Status Last Admin (NS Flush) 2 ml UNSCH PRN IV FLUSH 03/14/18 21:00 03/15/18 06:35 (NS Flush) 2 ml BID IV FLUSH 03/14/18 21:00 03/23/18 09:00 (Tylenol) 650 mg Q4H PRN PO 03/14/18 21:00 (Lovenox Inj) 40 mg Q24H SQ 03/14/18 22:00 03/22/18 20:30 (Narcan Inj) 0.4 mg UNSCH PRN IV PUSH 03/14/18 21:00 (Ebtty-Colace) 1 tab BID PO 03/14/18 21:00 03/23/18 09:00 (Milk Of Magnesia Liq) 30 ml Q12H PRN PO 03/14/18 21:00 (Senokot) 17.2 mg Q12H PRN PO 03/14/18 21:00 03/16/18 21:17 (Dulcolax Supp) 10 mg DAILY PRN RECTAL 03/14/18 21:00 (Lactulose Liq) 30 ml DAILY PRN PO 03/14/18 21:00 (Phenergan) 12.5 mg Q6H PRN PO 03/14/18 21:00 (Abilify) 5 mg DAILY PO 03/15/18 09:00 03/23/18 09:00 (Pepcid) 20 mg Q12HR PO 03/15/18 09:00 03/23/18 09:00 (Atarax) 50 mg TID PO 03/15/18 09:00 03/23/18 09:00 (Pamelor) 25 mg HS PO 03/15/18 21:00 03/22/18 20:30 (Inderal) 20 mg Q12HR PO 03/15/18 09:00 03/23/18 09:00 (risperDAL M-TAB) 3 mg Q12HR PO 03/15/18 09:00 03/23/18 09:00 (Depakene) 500 mg Q8HR PO 03/14/18 22:00 03/23/18 05:42 (Dilaudid) 2 mg Q8H PRN PO 03/15/18 14:45 03/23/18 14:47 (Oramorph Sr) 15 mg BID PO 03/15/18 21:00 03/23/18 09:00 (Xanax) 0.5 mg Q8H PRN PO 03/15/18 15:00 03/23/18 14:47 (Synthroid) 25 mcg DAILY@0600 PO 03/18/18 06:00 03/23/18 05:42 (Habitrol 14 Mg Patch.24 Hr) 1 patch DAILY T-DERMAL 03/20/18 11:30 03/23/18 09:00 Miscellaneous Information 1 DAILY T-DERMAL 03/21/18 09:00 03/23/18 09:00 (Flomax) 0.4 mg DAILY PO 03/21/18 09:00 03/23/18 09:00 (Dilaudid Pf Inj) 1 mg DAILY PRN IV PUSH 03/22/18 09:00 03/23/18 14:46 (Neurontin) 300 mg TID PO 03/22/18 18:00 03/23/18 09:00 (Haldol) 2 mg Q8H PO 03/22/18 22:00 03/23/18 05:42 Family Psych History No family psychiatric history no family psychiatric history Social History The patient was born and raised in [facility], he losing [place] with his mother, his single, unemployed, supported by [employer], his highest level of education is 11th grade Patient's Strengths (min. 2) Family support Physical Exam The patient is agitated, restless, might have some level of akathisia, Vital Signs Vital Signs Date Time Temp Pulse Resp B/P (MAP) Pulse Ox O2 Delivery O2 Flow Rate FiO2 03/23/18 11:00 98.7 80 18 100/63 (75) 99 03/23/18 07:00 Room Air 03/20/18 21:36 21 I/O 03/23/18 03/23/18 03/24/18 08:00 16:00 00:00 Intake Total 0 ml Output Total 1300 ml Balance -1300 ml Lab Results Test 03/23/18 05:42 Creatinine 0.55 MG/DL Estimat Glomerular Filtration Rate 165 ML/MIN Date/Time Source Procedure Growth Status 03/14/18 17:52 Blood Peripheral Aerobic Blood Culture - Final NO GROWTH IN 5 DAYS Complete 03/14/18 17:52 Blood Peripheral Anaerobic Blood Culture - Final NO GROWTH IN 5 DAYS Complete 03/15/18 21:58 Urine Random Urine Legionella Antigen - Final PRESUMPTIVE NEGATIVE FOR LEGIONELLA P... Complete 03/15/18 21:58 Urine Random Urine Streptococcus pneumoniae Antigen (M - Final PRESUMPTIVE NEGATIVE FOR STREPTOCOCCU... Complete Mental Status Examination Appearance: Dirty, Disheveled Consciousness: Alert Orientation: x4 Motor Activity: Normal gait Speech: Unremarkable Language: Adequate Fund of Knowledge: Adequate Attention and Concentration: Adequate Memory: Unremarkable Mood: Manic Affect: Irritable Thought Process & Associations: Loose associations, Disorganized Thought Content: Appropriate Hallucination Type: Visual Delusion Type: Bizarre Suicidal Ideation: No Suicidal Plan: No Suicidal Intention: No Homicidal Ideation: No Homicidal Plan: No Homicidal Intention: No Insight: Fair Judgment: Impulsive Assessment & Plan Problem List: (1) Schizoaffective disorder, bipolar type ICD Codes: F25.0 - Schizoaffective disorder, bipolar type Assessment & Plan: On psychiatric evaluation today the patient presents restless, a little bit agitated, with disorganized and tangential speech, fluctuation of consciousness and attention, able to provide most of the information for the psychiatric assessment. He denies suicidal and homicidal ideation at this moment, denies visual and auditory hallucinations. He is oriented 3. As per nursing report in conversation with primary medical team the patient has been also presenting visual hallucinations and moments of aggressive behavior or which he has been medicated with ETO's and restrained. This presentation seems to be more related with delirium due to underlying medical conditions than to pure psychosis. There are also several medication in his psychotropic regimen that does not seem to have a clear indication and might worsen cognition. The patient does not meet criteria for involuntary psychiatric admission. Brief supportive psychotherapy, motivation, psychoeducation provided. DC Haldol 2 mg tid, the is not clear indication for 3 antipsychotics and given patient high risk for EPS . Discontinue Hydroxyzine 50 mg tid since this medication can worsen cognition and urinary retention, also DC Nortriptiline 25 mg for the same reason. Continue Abilify 5 and Riperdal 3 mg, Depakote 500 mg tid, Order Depakote levels. Continue propranolol 20 mg bid will help with EPS symptoms. Order EKG for QTC baseline. We will follow-up. Assessment & Plan Estimated LOS: Rylan Mclaughlin MD Mar 23, 2018 15:22
[2018-03-23 20:20] VITALS: BP 105/52; PULSE 84; RESP 20; TEMP 98.4; O2SAT 95
[2018-03-23] MEDS: NORTRIPTYLINE HCL 25 MG CAP PO SCH (22:19)
[2018-03-23] MEDS: ENOXAPARIN SODIUM 40 MG/0.4 ML SYRINGE SQ SCH (22:19)
[2018-03-24] VITALS: BP 112/84; PULSE 84; RESP 20; TEMP 98; O2SAT 98
[2018-03-24 04:15] VITALS: BP 90/50; PULSE 76; RESP 18; TEMP 98; O2SAT 94
[2018-03-24] MEDS: LEVOTHYROXINE SODIUM 25 MCG TAB PO SCH (05:38)
[2018-03-24] MEDS: VALPROIC ACID 250 MG CAP PO SCH ×3 (05:38→20:12)
[2018-03-24 08:19] VITALS: BP 90/54; PULSE 68; RESP 18; TEMP 96; O2SAT 97
[2018-03-24] MEDS: risperiDONE ODT 3 MG TAB PO SCH ×2 (08:23→20:12)
[2018-03-24] MEDS: PROPRANOLOL HCL 20 MG TAB PO SCH ×2 (08:24→20:12)
[2018-03-24] MEDS: ARIPiprazole 5 MG TAB PO SCH (08:24)
[2018-03-24] MEDS: MORPHINE SULFATE 15 MG CONTROLLED RELEASE TAB PO SCH ×2 (08:24→20:12)
[2018-03-24] MEDS: FAMOTIDINE 20 MG TAB PO SCH ×2 (08:24→20:12)
[2018-03-24] MEDS: GABAPENTIN 100 MG CAP PO SCH ×3 (08:24→17:02)
[2018-03-24] MEDS: TAMSULOSIN HCL 0.4 MG CAP PO SCH (08:24)
[2018-03-24] MEDS: DOCUSATE SODIUM 50 MG/SENNA 8.6 MG TAB PO SCH ×2 (08:24→19:46)
[2018-03-24] MEDS: NICOTINE 14 MG/24 HR PATCH T-DERMAL SCH (08:25)
[2018-03-24] MEDS: REMOVE OLD PATCH T-DERMAL SCH (08:25)
[2018-03-24] MEDS: SODIUM CHLORIDE 0.9% FLUSH 10 ML FLUSH IV FLUSH SCH ×2 (08:25→20:13)
--- NOTE | 2018-03-24 10:08 | HHI.PR ---
Subjective Remarks Follow-up for rectal cancer, suspected UTI versus pneumonia. Patient is currently doing well. No acute concerns. Objective Vitals Vital Signs Date Time Temp Pulse Resp B/P (MAP) Pulse Ox O2 Delivery O2 Flow Rate FiO2 03/24/18 08:31 97 Room Air 03/24/18 08:19 96.0 68 18 90/54 (66) 97 03/24/18 04:15 98.0 76 18 90/50 (63) 94 03/24/18 01:37 Room Air 03/24/18 00:00 98.0 84 20 112/84 (93) 98 03/23/18 20:20 98.4 84 20 105/52 (69) 95 03/23/18 15:00 99.5 93 16 104/59 (74) 95 03/23/18 11:00 98.7 80 18 100/63 (75) 99 I/O 03/23/18 03/23/18 03/23/18 03/24/18 03/24/18 03/24/18 06:59 14:59 22:59 06:59 14:59 22:59 Intake Total 200 ml 0 ml 400 ml 240 ml Output Total 3000 ml 2600 ml 1150 ml Balance -2800 ml 0 ml -2200 ml -910 ml Intake Oral 200 ml 0 ml 400 ml 240 ml Output Urine Total 3000 ml 2600 ml 1150 ml Result Diagram: 03/21/18 1149 03/23/18 0542 Objective Remarks GENERAL: Alert, oriented to person. No acute distress. SKIN: Warm and dry. HEAD: Normocephalic. EYES: No scleral icterus. No injection or drainage. NECK: Supple, trachea midline. No JVD or lymphadenopathy. CARDIOVASCULAR: Regular rate and rhythm without murmurs, gallops, or rubs. RESPIRATORY: Breath sounds equal bilaterally. No accessory muscle use. GASTROINTESTINAL: Abdomen soft, non-tender, nondistended. MUSCULOSKELETAL: No cyanosis, or edema. BACK: Nontender without obvious deformity. No CVA tenderness. Procedures NONE A/P Assessment and Plan 42 year old male with schizoaffective disorder, R basilic vein DVT, locally advanced perforated rectal cancer with associated gluteal and pelvic abscess s/ p debridement, and chronic anemia admitted on 03/15 for weakness, dizziness, and anemia during a radiation treatment. On presentation he was found to have possible pneumonia or early UTI as well. Anemia - Stable, Hb 9.6 on 03/21/2018. - Heme/onc following Urinary retention - Maintain Chaidez catheter - will probably go home with Chaidez. - Continue Tamsulosin 0.4mg Qday. Right lower lobe pneumonia Possible aspiration pneumonia - Patient received Zosyn. ID discontinued Zosyn on 03/20/2018. Rectal cancer - Heme/onc following - Radiation as outpatient Un-stageable R heel, stage IV R sacral, and R thigh wounds - Wound care following - Position changes Q2H - Follows with Dr. Fregoos as outpatient Schizoaffective disorder Hallucinations. - Continue home medications. Appreciate psychiatry input. - Discussed with Psychiatrist who will adjust patient's medications. Currently on Risperidone, Haloperidol. Obstructive uropathy - Chaidez in place DVT prophylaxis: SCDs Pt can be discharged once home health is arranged. No acute change in management (03/24/2018). Reji Salgado DO Mar 24, 2018 10:08
[2018-03-24 11:09] VITALS: BP 103/54; PULSE 72; RESP 18; TEMP 97.7; O2SAT 94
--- NOTE | 2018-03-24 12:02 | HHI.PYPN ---
Subjective Remarks The patient was seen today for psychiatric reevaluation. The patient was found sleeping, but easily arousable. The patient once awake, was alert, cooperative , a little bit confused. He did not recognize us from yesterday's visit, but he was able to explain that he feels better, he was not restrained, calm and talkative. The patient reports good mood, he denies depressive symptoms, denies suicidal and homicidal ideation, he denies visual and auditory hallucinations. He is oriented to person, but disoriented in time and place at this moment. He reports good sleep at night, good appetite, good level of energy. Compliant with medications, no significant side effects reported. Review of Systems Constitutional: DENIES: Diaphoretic episodes, Fatigue, Fever, Weight gain, Weight loss, Chills, Dizziness, Change in appetite, Night Sweats Endocrine: DENIES: Heat/cold intolerance, Polydipsia, Polyuria, Polyphagia Eyes: DENIES: Blurred vision, Diplopia, Eye inflammation, Eye pain, Vision loss , Photosensitivity, Double Vision Ears, nose, mouth, throat: DENIES: Tinnitus, Hearing loss, Vertigo, Nasal discharge, Oral lesions, Throat pain, Hoarseness, Ear Pain, Running Nose, Epistaxis, Sinus Pain, Toothache, Odynophagia Respiratory: DENIES: Apneas, Cough, Snoring, Wheezing, Hemoptysis, Sputum production, Shortness of breath Cardiovascular: DENIES: Chest pain, Palpitations, Syncope, Dyspnea on Exertion , PND, Lower Extremity Edema, Orthopnea, Claudication Gastrointestinal: DENIES: Abdominal pain, Black stools, Bloody stools, Constipation, Diarrhea, Nausea, Vomiting, Difficulty Swallowing, Anorexia Genitourinary: DENIES: Sexual dysfunction, Urinary frequency, Urinary incontinence, Urgency, Hematuria, Dysuria, Nocturia, Penile Discharge, Testicular Pain, Testicular Swelling Musculoskeletal: DENIES: Joint pain, Muscle aches, Stiffness, Joint Swelling, Back pain, Neck pain Integumentary: DENIES: Abnormal pigmentation, Nail changes, Pruritus, Rash Hematologic/lymphatic: DENIES: Bruising, Lymphadenopathy Immunologic/allergic: DENIES: Eczema, Urticaria Neurologic: DENIES: Abnormal gait, Headache, Localized weakness, Paresthesias, Seizures, Speech Problems, Tremor, Poor Balance Psychiatric: DENIES: Anxiety, Confusion, Mood changes, Depression, Hallucinations, Agitation, Suicidal Ideation, Homicidal Ideation, Delusions Mental Status Examination Appearance: Dirty, Disheveled Consciousness: Alert Orientation: Person Motor Activity: Normal gait Speech: Unremarkable Language: Adequate Fund of Knowledge: Adequate Attention and Concentration: Adequate Memory: Unremarkable Mood: Manic Affect: Irritable Thought Process & Associations: Loose associations, Disorganized Thought Content: Appropriate Hallucination Type: Visual Delusion Type: Bizarre Suicidal Ideation: No Suicidal Plan: No Suicidal Intention: No Homicidal Ideation: No Homicidal Plan: No Homicidal Intention: No Insight: Fair Judgment: Impulsive Results Labs Test 03/23/18 15:55 Valproic Acid (Depakene) Level 63 MCG/ML Date/Time Source Procedure Growth Status 03/14/18 17:52 Blood Peripheral Aerobic Blood Culture - Final NO GROWTH IN 5 DAYS Complete 03/14/18 17:52 Blood Peripheral Anaerobic Blood Culture - Final NO GROWTH IN 5 DAYS Complete 03/15/18 21:58 Urine Random Urine Legionella Antigen - Final PRESUMPTIVE NEGATIVE FOR LEGIONELLA P... Complete 03/15/18 21:58 Urine Random Urine Streptococcus pneumoniae Antigen (M - Final PRESUMPTIVE NEGATIVE FOR STREPTOCOCCU... Complete Vitals/IOs Vital Signs Date Time Temp Pulse Resp B/P (MAP) Pulse Ox O2 Delivery O2 Flow Rate FiO2 03/24/18 11:09 97.7 72 18 103/54 (70) 94 03/24/18 08:31 Room Air 03/20/18 21:36 21 Intake and Output 03/24/18 03/24/18 03/25/18 08:00 16:00 00:00 Intake Total 240 ml Output Total 1150 ml Balance -910 ml Assessment & Plan Problem List: (1) Schizoaffective disorder, bipolar type ICD Codes: F25.0 - Schizoaffective disorder, bipolar type Assessment & Plan: Patient continued to be confused, partially disoriented, which could be consistent with delirium due to his underlying conditions. No agitation, no aggressive behavior present at this moment. Reported better sleep last night, he has not been restrained in the last 24 hours. Depakote level is 63. Continue current psychotropic regimen. Assessment & Plan Estimated LOS: days Justification for Cont. Inpt. No admission indicated. Rylan Solorzano MD Mar 24, 2018 12:02
[2018-03-24] MEDS: HYDROmorphone HCL 2 MG TAB PO PRN (12:52)
[2018-03-24] MEDS: ALPRAZolam 0.5 MG TAB PO PRN (12:52)
[2018-03-24] MEDS: HYDROmorphone HCL PF 2 MG/ML VIAL IV PUSH PRN (13:41)
[2018-03-24 15:52] VITALS: BP 95/52; PULSE 80; RESP 18; TEMP 98.7; O2SAT 96
--- NOTE | 2018-03-24 16:05 | EKG ---
Date Performed: 03/23/2018 Time Performed: 16:14:33 PTAGE: 42 years EKG: Sinus rhythm NORMAL ECG Since the PREVIOUS TRACING , no significant change noted PREVIOUS TRACIN12/25/2017 20.29 DOCTOR: Nicole Cates Interpretating Date/Time 03/24/2018 16:00:42
--- NOTE | 2018-03-24 19:39 | PD.ONC.PN ---
Subjective Subjective Remarks No complaints. Events the past several days noted. Objective Data Date Time Temp Pulse Resp B/P (MAP) Pulse Ox O2 Delivery O2 Flow Rate FiO2 03/24/18 15:52 98.7 80 18 95/52 (66) 96 03/24/18 11:09 97.7 72 18 103/54 (70) 94 03/24/18 08:31 97 Room Air 03/24/18 08:19 96.0 68 18 90/54 (66) 97 03/24/18 04:15 98.0 76 18 90/50 (63) 94 03/24/18 01:37 Room Air 03/24/18 00:00 98.0 84 20 112/84 (93) 98 03/23/18 20:20 98.4 84 20 105/52 (69) 95 03/24/18 03/24/18 03/24/18 07:00 15:00 23:00 Intake Total 240 ml 2000 ml Output Total 1150 ml 1150 ml Balance -910 ml 850 ml Result Diagram: 03/21/18 1149 03/23/18 0542 Administered Medications Medications (Trade) Dose Ordered Sig/Mega Route PRN Reason Start Time Stop Time Status Last Admin Dose Admin Sodium Chloride (NS Flush) 2 ml UNSCH PRN IV FLUSH FLUSH AFTER USING IV ACCESS 03/14/18 21:00 03/15/18 06:35 Sodium Chloride (NS Flush) 2 ml BID IV FLUSH 03/14/18 21:00 03/24/18 08:25 Enoxaparin Sodium (Lovenox Inj) 40 mg Q24H SQ 03/14/18 22:00 03/23/18 22:19 Senna/Docusate Sodium (Betty-Colace) 1 tab BID PO 03/14/18 21:00 03/24/18 08:24 Sennosides (Senokot) 17.2 mg Q12H PRN PO Moderate constipation 03/14/18 21:00 03/16/18 21:17 Aripiprazole (Abilify) 5 mg DAILY PO 03/15/18 09:00 03/24/18 08:24 Famotidine (Pepcid) 20 mg Q12HR PO 03/15/18 09:00 03/24/18 08:24 Nortriptyline HCl (Pamelor) 25 mg HS PO 03/15/18 21:00 03/23/18 22:19 Propranolol HCl (Inderal) 20 mg Q12HR PO 03/15/18 09:00 03/24/18 08:24 Risperidone (risperDAL M-TAB) 3 mg Q12HR PO 03/15/18 09:00 03/24/18 08:23 Valproic Acid (Depakene) 500 mg Q8HR PO 03/14/18 22:00 03/24/18 13:41 Hydromorphone HCl (Dilaudid) 2 mg Q8H PRN PO Pain Management 1-10 03/15/18 14:45 03/24/18 12:52 Morphine Sulfate (Oramorph Sr) 15 mg BID PO 03/15/18 21:00 03/24/18 08:24 Alprazolam (Xanax) 0.5 mg Q8H PRN PO anxiety 03/15/18 15:00 03/24/18 12:52 Levothyroxine Sodium (Synthroid) 25 mcg DAILY@0600 PO 03/18/18 06:00 03/24/18 05:38 Nicotine (Habitrol 14 Mg Patch.24 Hr) 1 patch DAILY T-DERMAL 03/20/18 11:30 03/24/18 08:25 Miscellaneous Information 1 DAILY T-DERMAL 03/21/18 09:00 03/24/18 08:25 Tamsulosin HCl (Flomax) 0.4 mg DAILY PO 03/21/18 09:00 03/24/18 08:24 Hydromorphone HCl (Dilaudid Pf Inj) 1 mg DAILY PRN IV PUSH BREAKTHROUGH PAIN 03/22/18 09:00 03/24/18 13:41 Gabapentin (Neurontin) 300 mg TID PO 03/22/18 18:00 03/24/18 17:02 Objective Remarks GENERAL: young man, upright in bed eating breakfast. SKIN: Warm and dry. HEAD: Normocephalic. EYES: No injection or drainage. NECK: Supple, trachea midline. CARDIOVASCULAR: Regular rate and rhythm RESPIRATORY: Breath sounds equal bilaterally. No accessory muscle use. GASTROINTESTINAL: soft, nontender. +colostomy bag in place with brown stool EXTREMITIES: No cyanosis R leg and knee swelling resolved, R heel dressing in place. MUSCULOSKELETAL: ++ overall deconditioning. NEUROLOGICAL: awake, alert. normal speech. Assessment/Plan Problem List: (1) Colorectal cancer ICD Codes: C19 - Malignant neoplasm of rectosigmoid junction Plan: plan to start concurrent xeloda/xrt outpatient 03/24/18. Cont chemo XRT as planned. (2) Normocytic anemia ICD Codes: D64.9 - Anemia, unspecified Plan: --likely d/t blood loss from tumor --previously had intermittent bloody urine. --may also be component of inflammation --s/p 2 units pRBC during this hospitalization. 03/24/18. Hgb improve, no transfusion. Assessment 42y/o male with locally advanced colorectal cancer admitted with dizziness. history of schizoaffective disorder, bipolar type. h/o COPD, peripheral neuropathy, right basilic vein deep vein thromboses, locally advanced perforated rectal cancer, gluteal and pelvic abscess, status post debridement, right thigh abscess, chronic anemia. h/o laparoscopic loop colostomy, colonoscopy, rectal biopsy, irrigation and debridement right thigh split-thickness skin graft, irrigation and debridement right hip, right thigh, right knee with would closure and wound VAC placement, skin graft placement. Plan 1. continue palliative treatment with chemo/XRT 2. treat concurrent psychiatric illness 3. symptom management Jihan Webber MD Mar 24, 2018 19:39
[2018-03-24 20:00] VITALS: BP 106/65; PULSE 83; RESP 20; TEMP 98.7; O2SAT 100
[2018-03-24] MEDS: NORTRIPTYLINE HCL 25 MG CAP PO SCH (20:12)
[2018-03-24] MEDS: ENOXAPARIN SODIUM 40 MG/0.4 ML SYRINGE SQ SCH (22:19)
[2018-03-25] VITALS: BP 97/56; PULSE 80; RESP 18; TEMP 98.6; O2SAT 94
[2018-03-25] MEDS: HYDROmorphone HCL 2 MG TAB PO PRN ×2 (02:00→13:28)
[2018-03-25 04:11] VITALS: BP 93/46; PULSE 72; RESP 20; TEMP 98.7; O2SAT 94
[2018-03-25] MEDS: LEVOTHYROXINE SODIUM 25 MCG TAB PO SCH (04:49)
[2018-03-25] MEDS: VALPROIC ACID 250 MG CAP PO SCH ×3 (04:49→22:28)
[2018-03-25] MEDS: PROPRANOLOL HCL 20 MG TAB PO SCH ×2 (09:00→19:42)
[2018-03-25] MEDS: DOCUSATE SODIUM 50 MG/SENNA 8.6 MG TAB PO SCH ×2 (09:00→19:42)
[2018-03-25 09:29] VITALS: BP 90/49; PULSE 79; RESP 18; TEMP 98.5; O2SAT 93
[2018-03-25] MEDS: risperiDONE ODT 3 MG TAB PO SCH ×2 (09:37→19:42)
[2018-03-25] MEDS: ARIPiprazole 5 MG TAB PO SCH (09:37)
[2018-03-25] MEDS: FAMOTIDINE 20 MG TAB PO SCH ×2 (09:37→19:42)
[2018-03-25] MEDS: TAMSULOSIN HCL 0.4 MG CAP PO SCH (09:37)
[2018-03-25] MEDS: GABAPENTIN 100 MG CAP PO SCH ×3 (09:37→18:01)
[2018-03-25] MEDS: MORPHINE SULFATE 15 MG CONTROLLED RELEASE TAB PO SCH ×2 (09:37→19:42)
[2018-03-25] MEDS: NICOTINE 14 MG/24 HR PATCH T-DERMAL SCH (09:38)
[2018-03-25] MEDS: REMOVE OLD PATCH T-DERMAL SCH (09:38)
[2018-03-25] MEDS: SODIUM CHLORIDE 0.9% FLUSH 10 ML FLUSH IV FLUSH SCH ×2 (09:45→19:42)
[2018-03-25 11:33] VITALS: BP 101/64; PULSE 85; RESP 18; TEMP 97.7; O2SAT 97
--- NOTE | 2018-03-25 12:32 | HHI.PR ---
Subjective Remarks Follow-up for rectal cancer, suspected UTI versus pneumonia. Patient is doing well. No acute concerns. Objective Vitals Vital Signs Date Time Temp Pulse Resp B/P (MAP) Pulse Ox O2 Delivery O2 Flow Rate FiO2 03/25/18 11:33 97.7 85 18 101/64 (76) 97 03/25/18 09:46 Room Air 03/25/18 09:29 98.5 79 18 90/49 (63) 93 03/25/18 04:11 98.7 72 20 93/46 (62) 94 03/25/18 00:00 98.6 80 18 97/56 (70) 94 03/24/18 20:00 Room Air 03/24/18 20:00 98.7 83 20 106/65 (79) 100 03/24/18 15:52 98.7 80 18 95/52 (66) 96 I/O 03/24/18 03/24/18 03/24/18 03/25/18 03/25/18 03/25/18 07:00 15:00 23:00 07:00 15:00 23:00 Intake Total 240 ml 2000 ml 480 ml Output Total 1150 ml 1150 ml 1900 ml Balance -910 ml 850 ml -1420 ml Intake Oral 240 ml 2000 ml 480 ml Output Urine Total 1150 ml 1150 ml 1900 ml # Bowel Movements 0 Result Diagram: 03/21/18 1149 03/23/18 0542 Objective Remarks GENERAL: Alert, oriented to person. No acute distress. SKIN: Warm and dry. HEAD: Normocephalic. EYES: No scleral icterus. No injection or drainage. NECK: Supple, trachea midline. No JVD or lymphadenopathy. CARDIOVASCULAR: Regular rate and rhythm without murmurs, gallops, or rubs. RESPIRATORY: Breath sounds equal bilaterally. No accessory muscle use. GASTROINTESTINAL: Abdomen soft, non-tender, nondistended. MUSCULOSKELETAL: No cyanosis, or edema. BACK: Nontender without obvious deformity. No CVA tenderness. Procedures NONE A/P Assessment and Plan 42 year old male with schizoaffective disorder, R basilic vein DVT, locally advanced perforated rectal cancer with associated gluteal and pelvic abscess s/ p debridement, and chronic anemia admitted on 03/15 for weakness, dizziness, and anemia during a radiation treatment. On presentation he was found to have possible pneumonia or early UTI as well. Anemia - Stable, Hb 9.6 on 03/21/2018. - Heme/onc following Urinary retention - Maintain Chaidez catheter - will probably go home with Chaidez. - Continue Tamsulosin 0.4mg Qday. Right lower lobe pneumonia Possible aspiration pneumonia - Patient received Zosyn. ID discontinued Zosyn on 03/20/2018. Rectal cancer - Heme/onc following - Radiation as outpatient Un-stageable R heel, stage IV R sacral, and R thigh wounds - Wound care following - Position changes Q2H - Follows with Dr. Fregoso as outpatient Schizoaffective disorder Hallucinations. - Continue home medications. Appreciate psychiatry input. - Discussed with Psychiatrist who will adjust patient's medications. Currently on Risperidone, Haloperidol. Obstructive uropathy - Chaidez in place DVT prophylaxis: SCDs Pt can be discharged once home health is arranged. No acute change in management (03/25/2018). Reji Salgado DO Mar 25, 2018 12:32 pm
[2018-03-25] MEDS: ALPRAZolam 0.5 MG TAB PO PRN (13:27)
[2018-03-25 15:15] VITALS: BP 91/66; PULSE 88; RESP 18; TEMP 99.6; O2SAT 98
[2018-03-25] MEDS: NORTRIPTYLINE HCL 25 MG CAP PO SCH (19:42)
[2018-03-25 20:00] VITALS: BP 120/76; PULSE 100; RESP 20; TEMP 98.5; O2SAT 100
[2018-03-25] MEDS: ENOXAPARIN SODIUM 40 MG/0.4 ML SYRINGE SQ SCH (22:28)
[2018-03-26] VITALS: BP 97/63; PULSE 86; RESP 22; TEMP 99.5; O2SAT 100
[2018-03-26 04:00] VITALS: BP 93/53; PULSE 75; RESP 20; TEMP 98.9; O2SAT 96
[2018-03-26] MEDS: VALPROIC ACID 250 MG CAP PO SCH ×3 (05:21→21:04)
[2018-03-26] MEDS: LEVOTHYROXINE SODIUM 25 MCG TAB PO SCH (05:21)
[2018-03-26 08:51] VITALS: BP 101/58; PULSE 83; RESP 18; TEMP 97.7; O2SAT 99
[2018-03-26] MEDS: TAMSULOSIN HCL 0.4 MG CAP PO SCH (08:56)
[2018-03-26] MEDS: PROPRANOLOL HCL 20 MG TAB PO SCH ×2 (08:56→21:04)
[2018-03-26] MEDS: REMOVE OLD PATCH T-DERMAL SCH (08:57)
[2018-03-26] MEDS: GABAPENTIN 100 MG CAP PO SCH ×3 (08:57→18:11)
[2018-03-26] MEDS: NICOTINE 14 MG/24 HR PATCH T-DERMAL SCH (08:57)
[2018-03-26] MEDS: ARIPiprazole 5 MG TAB PO SCH (08:57)
[2018-03-26] MEDS: risperiDONE ODT 3 MG TAB PO SCH ×2 (08:57→21:03)
[2018-03-26] MEDS: MORPHINE SULFATE 15 MG CONTROLLED RELEASE TAB PO SCH ×2 (08:57→21:04)
[2018-03-26] MEDS: DOCUSATE SODIUM 50 MG/SENNA 8.6 MG TAB PO SCH ×2 (08:57→21:05)
[2018-03-26] MEDS: FAMOTIDINE 20 MG TAB PO SCH ×2 (08:57→21:03)
[2018-03-26] MEDS: SODIUM CHLORIDE 0.9% FLUSH 10 ML FLUSH IV FLUSH SCH ×2 (08:57→21:04)
--- NOTE | 2018-03-26 09:26 | HHI.PR ---
Subjective Remarks Follow-up for rectal cancer, suspected UTI versus pneumonia. No acute concerns. No acute concerns. No fever, chills. Objective Vitals Vital Signs Date Time Temp Pulse Resp B/P (MAP) Pulse Ox O2 Delivery O2 Flow Rate FiO2 03/26/18 08:51 97.7 83 18 101/58 (72) 99 03/26/18 04:00 98.9 75 20 93/53 (66) 96 03/26/18 00:00 99.5 86 22 97/63 (74) 100 03/25/18 20:00 Room Air 03/25/18 20:00 98.5 100 20 120/76 (91) 100 03/25/18 15:15 99.6 88 18 91/66 (74) 98 03/25/18 11:33 97.7 85 18 101/64 (76) 97 03/25/18 09:46 Room Air 03/25/18 09:29 98.5 79 18 90/49 (63) 93 I/O 03/25/18 03/25/18 03/25/18 03/26/18 03/26/18 03/26/18 07:00 15:00 23:00 07:00 15:00 23:00 Intake Total 480 ml 2000 ml 800 ml Output Total 1900 ml 2750 ml 4000 ml 800 ml Balance -1420 ml -750 ml -3200 ml -800 ml Intake Oral 480 ml 2000 ml 800 ml Output Urine Total 1900 ml 2750 ml 4000 ml 800 ml # Bowel Movements 1 Result Diagram: 03/23/18 0542 Imaging Last Impressions Abdomen/Pelvis CT 03/15/18 0000 Signed Impressions: CONCLUSION: 1. Significant interval progression of rectal mass with interval invasion of n early the entire sacrum and adjacent gluteal musculature. Retroperitoneal adeno suzanna. Otherwise, no gross distant metastatic disease. 2. Right lung base airspace consolidation. Cannot exclude pneumonia or aspirat ion in the appropriate clinical setting. ` Chest X-Ray 03/14/18 1743 Signed Impressions: CONCLUSION: Hyperinflation otherwise negative. CT Angiography 03/14/18 0000 Signed Impressions: CONCLUSION: 1. Probable airspace disease right lower lobe consistent with an inflammatory process. 2. Large gallstone Objective Remarks GENERAL: Alert, oriented to person. No acute distress. SKIN: Warm and dry. HEAD: Normocephalic. EYES: No scleral icterus. No injection or drainage. NECK: Supple, trachea midline. No JVD or lymphadenopathy. CARDIOVASCULAR: Regular rate and rhythm without murmurs, gallops, or rubs. RESPIRATORY: Breath sounds equal bilaterally. No accessory muscle use. GASTROINTESTINAL: Abdomen soft, non-tender, nondistended. MUSCULOSKELETAL: No cyanosis, or edema. BACK: Nontender without obvious deformity. No CVA tenderness. Procedures NONE A/P Assessment and Plan 42 year old male with schizoaffective disorder, R basilic vein DVT, locally advanced perforated rectal cancer with associated gluteal and pelvic abscess s/ p debridement, and chronic anemia admitted on 03/15 for weakness, dizziness, and anemia during a radiation treatment. On presentation he was found to have possible pneumonia or early UTI as well. Anemia - Stable, Hb 9.6 on 03/21/2018. - Heme/onc following Urinary retention - Maintain Chaidez catheter - will probably go home with Chaidez. - Continue Tamsulosin 0.4mg Qday. Right lower lobe pneumonia Possible aspiration pneumonia - Patient received Zosyn. ID discontinued Zosyn on 03/20/2018. Rectal cancer - Heme/onc following - Radiation as outpatient Un-stageable R heel, stage IV R sacral, and R thigh wounds - Wound care following - Position changes Q2H - Follows with Dr. Fregoso as outpatient Schizoaffective disorder Hallucinations. - Continue home medications. Appreciate psychiatry input. - Discussed with Psychiatrist who will adjust patient's medications. Currently on Risperidone, Haloperidol. Obstructive uropathy - Chaidez in place DVT prophylaxis: SCDs Pt can be discharged once home health is arranged. No acute change in management (03/26/2018). Reji Salgado DO Mar 26, 2018 09:26
[2018-03-26 11:23] VITALS: BP 102/65; PULSE 71; RESP 18; TEMP 97.9; O2SAT 100
[2018-03-26] MEDS: HYDROmorphone HCL 2 MG TAB PO PRN ×2 (11:27→19:37)
[2018-03-26 15:44] VITALS: BP 94/59; PULSE 80; RESP 18; TEMP 97.9; O2SAT 100
[2018-03-26 19:37] VITALS: BP 96/63; PULSE 84; RESP 19; TEMP 98.4; O2SAT 97
[2018-03-26] MEDS: NORTRIPTYLINE HCL 25 MG CAP PO SCH (21:03)
[2018-03-26] MEDS: ENOXAPARIN SODIUM 40 MG/0.4 ML SYRINGE SQ SCH (21:03)
[2018-03-27] MEDS: ALPRAZolam 0.5 MG TAB PO PRN ×2 (00:27→14:39)
[2018-03-27 00:30] VITALS: BP 95/57; PULSE 78; RESP 18; TEMP 98.6; O2SAT 96
[2018-03-27 05:50] VITALS: BP 97/58; PULSE 84; RESP 16; TEMP 99.1; O2SAT 97
[2018-03-27] MEDS: LEVOTHYROXINE SODIUM 25 MCG TAB PO SCH (05:55)
[2018-03-27] MEDS: VALPROIC ACID 250 MG CAP PO SCH ×3 (05:56→20:34)
[2018-03-27] MEDS: NICOTINE 14 MG/24 HR PATCH T-DERMAL SCH (08:50)
[2018-03-27] MEDS: FAMOTIDINE 20 MG TAB PO SCH ×2 (08:50→20:34)
[2018-03-27] MEDS: PROPRANOLOL HCL 20 MG TAB PO SCH ×2 (08:50→20:38)
[2018-03-27] MEDS: ARIPiprazole 5 MG TAB PO SCH (08:51)
[2018-03-27] MEDS: GABAPENTIN 100 MG CAP PO SCH ×3 (08:51→17:45)
[2018-03-27] MEDS: risperiDONE ODT 3 MG TAB PO SCH ×2 (08:52→20:34)
[2018-03-27] MEDS: MORPHINE SULFATE 15 MG CONTROLLED RELEASE TAB PO SCH ×2 (08:53→20:34)
[2018-03-27] MEDS: REMOVE OLD PATCH T-DERMAL SCH (08:53)
[2018-03-27] MEDS: DOCUSATE SODIUM 50 MG/SENNA 8.6 MG TAB PO SCH ×2 (08:53→20:35)
[2018-03-27] MEDS: SODIUM CHLORIDE 0.9% FLUSH 10 ML FLUSH IV FLUSH SCH ×2 (08:54→20:38)
[2018-03-27] MEDS: TAMSULOSIN HCL 0.4 MG CAP PO SCH (08:55)
[2018-03-27 11:55] VITALS: BP 90/66; PULSE 93; RESP 20; TEMP 97.9; O2SAT 98
--- NOTE | 2018-03-27 13:46 | PD.ONC.PN ---
Subjective Subjective Remarks More alert after stopping Hydroxyzine. Conversing about his care. Mother at bedside - working w/ case management. Objective Data Date Time Temp Pulse Resp B/P (MAP) Pulse Ox O2 Delivery O2 Flow Rate FiO2 03/27/18 11:55 97.9 93 20 90/66 (74) 98 03/27/18 05:50 99.1 84 16 97/58 (71) 97 03/27/18 00:30 98.6 78 18 95/57 (70) 96 03/26/18 22:04 16 03/26/18 20:35 16 03/26/18 19:37 98.4 84 19 96/63 (74) 97 03/26/18 15:44 97.9 80 18 94/59 (71) 100 03/27/18 03/27/18 03/27/18 07:00 15:00 23:00 Intake Total 900 ml Output Total 2700 ml Balance -1800 ml Result Diagram: 03/23/18 0542 Administered Medications Medications (Trade) Dose Ordered Sig/Mega Route PRN Reason Start Time Stop Time Status Last Admin Dose Admin Sodium Chloride (NS Flush) 2 ml UNSCH PRN IV FLUSH FLUSH AFTER USING IV ACCESS 03/14/18 21:00 03/15/18 06:35 Sodium Chloride (NS Flush) 2 ml BID IV FLUSH 03/14/18 21:00 03/27/18 08:54 Enoxaparin Sodium (Lovenox Inj) 40 mg Q24H SQ 03/14/18 22:00 03/26/18 21:03 Senna/Docusate Sodium (Betty-Colace) 1 tab BID PO 03/14/18 21:00 03/26/18 08:57 Sennosides (Senokot) 17.2 mg Q12H PRN PO Moderate constipation 03/14/18 21:00 03/16/18 21:17 Aripiprazole (Abilify) 5 mg DAILY PO 03/15/18 09:00 03/27/18 08:51 Famotidine (Pepcid) 20 mg Q12HR PO 03/15/18 09:00 03/27/18 08:50 Nortriptyline HCl (Pamelor) 25 mg HS PO 03/15/18 21:00 03/26/18 21:03 Propranolol HCl (Inderal) 20 mg Q12HR PO 03/15/18 09:00 03/27/18 08:50 Risperidone (risperDAL M-TAB) 3 mg Q12HR PO 03/15/18 09:00 03/27/18 08:52 Valproic Acid (Depakene) 500 mg Q8HR PO 03/14/18 22:00 03/27/18 05:56 Hydromorphone HCl (Dilaudid) 2 mg Q8H PRN PO Pain Management 1-10 03/15/18 14:45 03/26/18 19:37 Morphine Sulfate (Oramorph Sr) 15 mg BID PO 03/15/18 21:00 03/27/18 08:53 Alprazolam (Xanax) 0.5 mg Q8H PRN PO anxiety 03/15/18 15:00 03/27/18 00:27 Levothyroxine Sodium (Synthroid) 25 mcg DAILY@0600 PO 03/18/18 06:00 03/27/18 05:55 Nicotine (Habitrol 14 Mg Patch.24 Hr) 1 patch DAILY T-DERMAL 03/20/18 11:30 03/27/18 08:50 Miscellaneous Information 1 DAILY T-DERMAL 03/21/18 09:00 03/27/18 08:53 Tamsulosin HCl (Flomax) 0.4 mg DAILY PO 03/21/18 09:00 03/27/18 08:55 Hydromorphone HCl (Dilaudid Pf Inj) 1 mg DAILY PRN IV PUSH BREAKTHROUGH PAIN 03/22/18 09:00 03/24/18 13:41 Gabapentin (Neurontin) 300 mg TID PO 03/22/18 18:00 03/27/18 08:51 Objective Remarks GENERAL: young man, upright in bed eating breakfast. SKIN: Warm and dry. HEAD: Normocephalic. EYES: No injection or drainage. NECK: Supple, trachea midline. CARDIOVASCULAR: Regular rate and rhythm RESPIRATORY: Breath sounds equal bilaterally. No accessory muscle use. GASTROINTESTINAL: soft, nontender. +colostomy bag in place with brown stool EXTREMITIES: No cyanosis R leg and knee swelling resolved, R heel dressing in place. MUSCULOSKELETAL: ++ overall deconditioning. NEUROLOGICAL: awake, alert. normal speech. Assessment/Plan Problem List: (1) Colorectal cancer ICD Codes: C19 - Malignant neoplasm of rectosigmoid junction Plan: plan to start concurrent xeloda/xrt outpatient 03/24/18. Cont chemo XRT as planned. 03/27/18. Pending XRt today. Initiate Xeloda 1500mg BID on days of chemo. Start today. (2) Normocytic anemia ICD Codes: D64.9 - Anemia, unspecified Plan: --likely d/t blood loss from tumor --previously had intermittent bloody urine. --may also be component of inflammation --s/p 2 units pRBC during this hospitalization. 03/24/18. Hgb improve, no transfusion. 03/27/18. Monitor and transfuse as needed. Assessment 42y/o male with locally advanced colorectal cancer admitted with dizziness. history of schizoaffective disorder, bipolar type. h/o COPD, peripheral neuropathy, right basilic vein deep vein thromboses, locally advanced perforated rectal cancer, gluteal and pelvic abscess, status post debridement, right thigh abscess, chronic anemia. h/o laparoscopic loop colostomy, colonoscopy, rectal biopsy, irrigation and debridement right thigh split-thickness skin graft, irrigation and debridement right hip, right thigh, right knee with would closure and wound VAC placement, skin graft placement. Plan 1. 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 Continue psychiatric medication 3. symptom management Jihan Webber MD Mar 27, 2018 13:46
--- NOTE | 2018-03-27 13:47 | HHI.PR ---
Subjective Remarks Follow-up for rectal cancer, suspected UTI versus pneumonia. Resting in bed. Afebrile. Objective Vitals Vital Signs Date Time Temp Pulse Resp B/P (MAP) Pulse Ox O2 Delivery O2 Flow Rate FiO2 03/27/18 11:55 97.9 93 20 90/66 (74) 98 03/27/18 05:50 99.1 84 16 97/58 (71) 97 03/27/18 00:30 98.6 78 18 95/57 (70) 96 03/26/18 22:04 16 03/26/18 20:35 16 03/26/18 19:37 98.4 84 19 96/63 (74) 97 03/26/18 15:44 97.9 80 18 94/59 (71) 100 I/O 03/26/18 03/26/18 03/26/18 03/27/18 03/27/18 03/27/18 07:00 15:00 23:00 07:00 15:00 23:00 Intake Total 800 ml 2600 ml 900 ml Output Total 4000 ml 800 ml 1500 ml 2700 ml Balance -3200 ml -800 ml 1100 ml -1800 ml Intake Oral 800 ml 2600 ml 900 ml Output Urine Total 4000 ml 800 ml 1300 ml 2700 ml Stool Total 200 ml # Bowel Movements 1 Result Diagram: 03/23/18 0542 Objective Remarks GENERAL: Alert, oriented to person. No acute distress. SKIN: Warm and dry. HEAD: Normocephalic. EYES: No scleral icterus. No injection or drainage. NECK: Supple, trachea midline. No JVD or lymphadenopathy. CARDIOVASCULAR: Regular rate and rhythm without murmurs, gallops, or rubs. RESPIRATORY: Breath sounds equal bilaterally. No accessory muscle use. GASTROINTESTINAL: Abdomen soft, non-tender, nondistended. MUSCULOSKELETAL: No cyanosis, or edema. BACK: Nontender without obvious deformity. No CVA tenderness. Procedures NONE A/P Assessment and Plan 42 year old male with schizoaffective disorder, R basilic vein DVT, locally advanced perforated rectal cancer with associated gluteal and pelvic abscess s/ p debridement, and chronic anemia admitted on 03/15 for weakness, dizziness, and anemia during a radiation treatment. On presentation he was found to have possible pneumonia or early UTI as well. Anemia - Stable, Hb 9.6 on 03/21/2018. - Heme/onc following Urinary retention - Maintain Chaidez catheter - will probably go home with Chaidez. - Continue Tamsulosin 0.4mg Qday. Right lower lobe pneumonia Possible aspiration pneumonia - Patient received Zosyn. ID discontinued Zosyn on 03/20/2018. Rectal cancer - Heme/onc following - Radiation as outpatient Un-stageable R heel, stage IV R sacral, and R thigh wounds - Wound care following - Position changes Q2H - Follows with Dr. Fregoso as outpatient Schizoaffective disorder Hallucinations. - Continue home medications. Appreciate psychiatry input. - Discussed with Psychiatrist who will adjust patient's medications. Currently on Risperidone, Haloperidol. Obstructive uropathy - Chaidez in place DVT prophylaxis: SCDs Pt can be discharged once home health is arranged. No acute change in management (03/27/2018). Reji Salgado DO Mar 27, 2018 1:47 pm
[2018-03-27] MEDS: HYDROmorphone HCL PF 2 MG/ML VIAL IV PUSH PRN (14:40)
[2018-03-27 16:21] VITALS: BP 105/76; PULSE 84; RESP 18; TEMP 98.6; O2SAT 100
[2018-03-27 19:03] LABS: HEMATOCRIT 26.7 % (39.0-51.0); HEMOGLOBIN 8.9 GM/DL (13.0-17.0)
[2018-03-27 20:30] VITALS: BP 108/69; PULSE 95; RESP 18; TEMP 98.4; O2SAT 95
[2018-03-27] MEDS: ENOXAPARIN SODIUM 40 MG/0.4 ML SYRINGE SQ SCH (20:33)
[2018-03-27] MEDS: NORTRIPTYLINE HCL 25 MG CAP PO SCH (20:34)
[2018-03-27 23:32] VITALS: BP 101/55; PULSE 91; RESP 18; TEMP 98.5; O2SAT 94
[2018-03-28 04:17] VITALS: BP 92/55; PULSE 79; RESP 20; TEMP 98; O2SAT 97
[2018-03-28] MEDS: VALPROIC ACID 250 MG CAP PO SCH ×3 (06:33→21:07)
[2018-03-28] MEDS: LEVOTHYROXINE SODIUM 25 MCG TAB PO SCH (06:33)
[2018-03-28 08:42] VITALS: BP 104/63; PULSE 82; RESP 16; TEMP 98.3; O2SAT 98
[2018-03-28] MEDS: NICOTINE 14 MG/24 HR PATCH T-DERMAL SCH (08:50)
[2018-03-28] MEDS: REMOVE OLD PATCH T-DERMAL SCH (08:50)
[2018-03-28] MEDS: MORPHINE SULFATE 15 MG CONTROLLED RELEASE TAB PO SCH ×2 (08:51→21:06)
[2018-03-28] MEDS: FAMOTIDINE 20 MG TAB PO SCH ×2 (08:51→21:07)
[2018-03-28] MEDS: PROPRANOLOL HCL 20 MG TAB PO SCH ×2 (08:51→21:07)
[2018-03-28] MEDS: risperiDONE ODT 3 MG TAB PO SCH ×2 (08:51→21:06)
[2018-03-28] MEDS: DOCUSATE SODIUM 50 MG/SENNA 8.6 MG TAB PO SCH ×2 (08:51→21:00)
[2018-03-28] MEDS: GABAPENTIN 100 MG CAP PO SCH ×3 (08:51→16:47)
[2018-03-28] MEDS: TAMSULOSIN HCL 0.4 MG CAP PO SCH (08:51)
[2018-03-28] MEDS: SODIUM CHLORIDE 0.9% FLUSH 10 ML FLUSH IV FLUSH SCH ×2 (08:52→21:12)
[2018-03-28] MEDS: ARIPiprazole 5 MG TAB PO SCH (08:53)
[2018-03-28] MEDS ORDERED: XELODA 500 MG PO SCH (09:00)
--- NOTE | 2018-03-28 09:48 | PD.ONC.PN ---
Subjective Subjective Remarks Afebrile overnight. Patient resting in bed in nad. No complaints. has not yet taken xeloda. nurse reports it has not yet been brought in. ate breakfast this AM without difficulty. Objective Data Date Time Temp Pulse Resp B/P (MAP) Pulse Ox O2 Delivery O2 Flow Rate FiO2 03/28/18 08:42 98.3 82 16 104/63 (77) 98 03/28/18 04:17 98.0 79 20 92/55 (67) 97 03/27/18 23:32 98.5 91 18 101/55 (70) 94 03/27/18 21:34 16 03/27/18 20:30 98.4 95 18 108/69 (82) 95 03/27/18 16:21 98.6 84 18 105/76 (86) 100 03/27/18 11:55 97.9 93 20 90/66 (74) 98 03/28/18 03/28/18 03/28/18 07:00 15:00 23:00 Intake Total 240 ml Output Total 1200 ml Balance -960 ml Result Diagram: 03/27/18 1846 Laboratory Results Laboratory Tests Test 03/27/18 18:45 Hemoglobin 8.9 GM/DL Hematocrit 26.7 % Administered Medications Medications (Trade) Dose Ordered Sig/Mega Route PRN Reason Start Time Stop Time Status Last Admin Dose Admin Sodium Chloride (NS Flush) 2 ml UNSCH PRN IV FLUSH FLUSH AFTER USING IV ACCESS 03/14/18 21:00 03/15/18 06:35 Sodium Chloride (NS Flush) 2 ml BID IV FLUSH 03/14/18 21:00 03/28/18 08:52 Enoxaparin Sodium (Lovenox Inj) 40 mg Q24H SQ 03/14/18 22:00 03/27/18 20:33 Senna/Docusate Sodium (Betty-Colace) 1 tab BID PO 03/14/18 21:00 03/28/18 08:51 Sennosides (Senokot) 17.2 mg Q12H PRN PO Moderate constipation 03/14/18 21:00 03/16/18 21:17 Aripiprazole (Abilify) 5 mg DAILY PO 03/15/18 09:00 03/28/18 08:53 Famotidine (Pepcid) 20 mg Q12HR PO 03/15/18 09:00 03/28/18 08:51 Nortriptyline HCl (Pamelor) 25 mg HS PO 03/15/18 21:00 03/27/18 20:34 Propranolol HCl (Inderal) 20 mg Q12HR PO 03/15/18 09:00 03/28/18 08:51 Risperidone (risperDAL M-TAB) 3 mg Q12HR PO 03/15/18 09:00 03/28/18 08:51 Valproic Acid (Depakene) 500 mg Q8HR PO 03/14/18 22:00 03/28/18 06:33 Hydromorphone HCl (Dilaudid) 2 mg Q8H PRN PO Pain Management 1-10 03/15/18 14:45 03/26/18 19:37 Morphine Sulfate (Oramorph Sr) 15 mg BID PO 03/15/18 21:00 03/28/18 08:51 Alprazolam (Xanax) 0.5 mg Q8H PRN PO anxiety 03/15/18 15:00 03/27/18 14:39 Levothyroxine Sodium (Synthroid) 25 mcg DAILY@0600 PO 03/18/18 06:00 03/28/18 06:33 Nicotine (Habitrol 14 Mg Patch.24 Hr) 1 patch DAILY T-DERMAL 03/20/18 11:30 03/28/18 08:50 Miscellaneous Information 1 DAILY T-DERMAL 03/21/18 09:00 03/28/18 08:50 Tamsulosin HCl (Flomax) 0.4 mg DAILY PO 03/21/18 09:00 03/28/18 08:51 Hydromorphone HCl (Dilaudid Pf Inj) 1 mg DAILY PRN IV PUSH BREAKTHROUGH PAIN 03/22/18 09:00 03/27/18 14:40 Gabapentin (Neurontin) 300 mg TID PO 03/22/18 18:00 03/28/18 08:51 Objective Remarks GENERAL: young man, lying in bed in nad. SKIN: Warm and dry. HEAD: Normocephalic. EYES: No injection or drainage. NECK: Supple, trachea midline. CARDIOVASCULAR: Regular rate and rhythm RESPIRATORY: Breath sounds equal bilaterally. No accessory muscle use. GASTROINTESTINAL: soft, nontender. +colostomy bag filled with soft brown stool EXTREMITIES: No cyanosis MUSCULOSKELETAL: muscle atrophy noted in all extremities. NEUROLOGICAL: awake, alert. normal speech. Assessment/Plan Problem List: (1) Colorectal cancer ICD Codes: C19 - Malignant neoplasm of rectosigmoid junction Plan: plan to start concurrent xeloda/xrt outpatient 03/24/18. Cont chemo XRT as planned. 03/27/18. Pending XRt today. Initiate Xeloda 1500mg BID on days of xrt Start today. 03/28/18: xeloda to start today (2) Normocytic anemia ICD Codes: D64.9 - Anemia, unspecified Plan: --likely d/t blood loss from tumor --previously had intermittent bloody urine. --may also be component of inflammation --s/p 2 units pRBC during this hospitalization. 03/24/18. Hgb improve, no transfusion. 03/27/18. Monitor and transfuse as needed. Assessment 42y/o male with locally advanced colorectal cancer admitted with dizziness. history of schizoaffective disorder, bipolar type. h/o COPD, peripheral neuropathy, right basilic vein deep vein thromboses, locally advanced perforated rectal cancer, gluteal and pelvic abscess, status post debridement, right thigh abscess, chronic anemia. h/o laparoscopic loop colostomy, colonoscopy, rectal biopsy, irrigation and debridement right thigh split-thickness skin graft, irrigation and debridement right hip, right thigh, right knee with would closure and wound VAC placement, skin graft placement. Plan 1. Xeloda to start today 2. continue supportive care 3. monitor CBC 4. okay to d/c when home arrangements made Attending Statement The exam, history, and the medical decision-making described in the above note were completed with the assistance of the mid-level provider. I reviewed and agree with the findings presented. I attest that I had a [id number] encounter with the patient on the same day, and personally performed and documented my assessment and findings in the medical record. Events noted, no Xeloda in house, pt has drug at home. Pending DC tomorrow, OK from heme/onc standpoint, OK to take Xeloda at home. Cont XRT as planned. Monitor for toxicity. Pt conversing, eager to participate in his own care. Brunilda Nieto Mar 28, 2018 09:48 Jihan Webber MD Mar 28, 2018 18:23
[2018-03-28] MEDS: ALPRAZolam 0.5 MG TAB PO PRN (13:14)
[2018-03-28 13:16] VITALS: BP 124/65; PULSE 76; RESP 20; TEMP 98.2; O2SAT 99
[2018-03-28] MEDS: HYDROmorphone HCL PF 2 MG/ML VIAL IV PUSH PRN (13:20)
--- NOTE | 2018-03-28 16:21 | HHI.PR ---
Subjective Remarks No new complaints from the patient today. No fevers overnight. Heart rate is within normal limits. Patient tolerating p.o. intake. Objective Vital Signs Date Time Temp Pulse Resp B/P (MAP) Pulse Ox O2 Delivery O2 Flow Rate FiO2 03/28/18 13:16 98.2 76 20 124/65 (84) 99 03/28/18 08:42 98.3 82 16 104/63 (77) 98 03/28/18 04:17 98.0 79 20 92/55 (67) 97 03/27/18 23:32 98.5 91 18 101/55 (70) 94 03/27/18 21:34 16 03/27/18 20:30 98.4 95 18 108/69 (82) 95 03/27/18 16:21 98.6 84 18 105/76 (86) 100 I/O 03/27/18 03/27/18 03/27/18 03/28/18 03/28/18 03/28/18 07:00 15:00 23:00 07:00 15:00 23:00 Intake Total 900 ml 800 ml 240 ml Output Total 2700 ml 2850 ml 1200 ml 995 ml Balance -1800 ml -2050 ml -960 ml -995 ml Intake Oral 900 ml 800 ml 240 ml Output Urine Total 2700 ml 2700 ml 1200 ml 850 ml Stool Total 150 ml 145 ml Result Diagram: 03/27/18 7565 Objective Remarks GENERAL: NAD, A&Ox3 HEAD: Normocephalic. NECK: Supple, trachea midline. No lymphadenopathy. EYES: No scleral icterus. No injection or drainage. CARDIOVASCULAR: Regular rate and rhythm without murmurs, gallops, or rubs. RESPIRATORY: Breath sounds equal bilaterally. No accessory muscle use. GASTROINTESTINAL: Abdomen soft, non-tender, nondistended. MUSCULOSKELETAL: No cyanosis, or edema. SKIN: Warm and dry. NEURO: No focal neurological deficitis. A/P Problem List: (1) Pain ICD Code: R52 - Pain, unspecified (2) Depression ICD Code: F32.9 - Major depressive disorder, single episode, unspecified (3) Anxiety ICD Code: F41.9 - Anxiety disorder, unspecified (4) Schizoaffective disorder, bipolar type ICD Code: F25.0 - Schizoaffective disorder, bipolar type (5) Colorectal cancer ICD Code: C19 - Malignant neoplasm of rectosigmoid junction Assessment and Plan 42 year old male with schizoaffective disorder, R basilic vein DVT, locally advanced perforated rectal cancer with associated gluteal and pelvic abscess s/ p debridement, and chronic anemia admitted on 03/15 for weakness, dizziness, and anemia during a radiation treatment. On presentation he was found to have possible pneumonia or early UTI as well. Anemia Stability documented Follows an outpatient Urinary retention Continue Chaidez catheter continue Tamsulosin 0.4mg Qday. Right lower lobe pneumonia Possible aspiration pneumonia Treatment completed on 03/20/2018. Rectal cancer Radiation as an outpatient Follow with oncology Un-stageable R heel, stage IV R sacral, and R thigh wounds Continue wound care and position changes Follow with wound care physician (Dr. Fregoso) as an outpatient Schizoaffective disorder Hallucinations. Continue Currently on Risperidone, Haloperidol. Psychiatry following DVT prophylaxis SCDs Discharge planning Arranging outpatient care and planning to discharge in 1-2 days José Antonio Holden MD Mar 28, 2018 16:21
[2018-03-28] MEDS ORDERED: TAMS5CAP PO (16:24)
[2018-03-28] MEDS ORDERED: LEVO25TA4 PO (16:24)
--- NOTE | 2018-03-28 16:28 | HHI.FF ---
Face to Face Verification Diagnosis: (1) Colorectal cancer Home Health Nursing Order: Wound care and dressing changes Nursing assessment with vital signs Instructions: Visual assessment of pressure wounds at right heel, right thigh, and right sacrum. I have seen patient Bertrand Price on 03/28/18. My clinical findings support the need for the requested home health care services because: Ltd mobility - disease progression Deconditioned w/ increased weakness Limited ability to care for self High risk of falls I certify that my clinical findings support that this patient is homebound because: Unsteady gait/balance Unsafe to leave home unassisted Unable to use public transportation José Antonio Holden MD Mar 28, 2018 16:28
[2018-03-28 16:42] VITALS: BP 106/62; PULSE 95; RESP 18; TEMP 98.2; O2SAT 98
[2018-03-28 19:46] VITALS: BP 113/64; PULSE 86; RESP 18; TEMP 98.4; O2SAT 100
[2018-03-28] MEDS: HYDROmorphone HCL 2 MG TAB PO PRN (19:55)
[2018-03-28] MEDS: XELODA 500 MG PO SCH (21:04)
[2018-03-28] MEDS: NORTRIPTYLINE HCL 25 MG CAP PO SCH (21:07)
[2018-03-28] MEDS: ENOXAPARIN SODIUM 40 MG/0.4 ML SYRINGE SQ SCH (21:12)
[2018-03-29 01:00] VITALS: BP 110/65; PULSE 82; RESP 17; TEMP 98.8; O2SAT 95
[2018-03-29 04:48] VITALS: BP 123/60; PULSE 96; RESP 16; TEMP 97.8; O2SAT 98
[2018-03-29] MEDS: LEVOTHYROXINE SODIUM 25 MCG TAB PO SCH (06:28)
[2018-03-29] MEDS: VALPROIC ACID 250 MG CAP PO SCH ×2 (06:29→13:59)
[2018-03-29 07:10] LABS: AUTOMATED NEUTROPHIL # 5.5 TH/MM3 (1.8-7.7); BASOPHIL % 0.4 % (0.0-2.0); EOSINOPHIL % 0.6 % (0.0-4.0); HEMATOCRIT 24.2 % (39.0-51.0); LYMPH % 5.1 % (9.0-44.0); LYMPHOCYTE # 0.4 TH/MM3 (1.0-4.8); MEAN CORPUSCULAR HEMOGLOBIN 29.5 PG (27.0-34.0); MEAN CORPUSCULAR HGB CONC 33.2 % (32.0-36.0); MEAN PLATELET VOLUME 7.4 FL (7.0-11.0); MONOCYTE # 1.1 TH/MM3 (0-0.9); NEUT % 77.9 % (16.0-70.0); PLATELET COUNT 290 TH/MM3 (150-450); RED BLOOD COUNT 2.72 MIL/MM3 (4.50-5.90); RED CELL DISTRIBUTION WIDTH 19.3 % (11.6-17.2); WHITE BLOOD COUNT 7.1 TH/MM3 (4.0-11.0)
[2018-03-29 07:13] LABS: ALBUMIN 1.8 GM/DL (3.4-5.0); AST (GOT) 34 U/L (15-37); BICARBONATE 26.2 MEQ/L (21.0-32.0); BLOOD UREA NITROGEN 17 MG/DL (7-18); CALCIUM 9.5 MG/DL (8.5-10.1); CHLORIDE 97 MEQ/L (98-107); CREATININE 0.52 MG/DL (0.60-1.30); GLOMERULAR FILTRATION RATE 176 ML/MIN (>89); GLUCOSE,RANDOM 81 MG/DL (74-106); SODIUM (NA) 132 MEQ/L (136-145)
[2018-03-29 07:15] LABS: ALT (GPT) 12 U/L (12-78)
[2018-03-29 07:17] LABS: ALKALINE PHOSPHATASE 59 U/L (45-117); TOTAL BILIRUBIN ADULT 0.2 MG/DL (0.2-1.0); TOTAL PROTEIN 6.5 GM/DL (6.4-8.2)
[2018-03-29 09:00] VITALS: BP 97/62; PULSE 85; RESP 18; TEMP 98.1; O2SAT 99
[2018-03-29] MEDS: REMOVE OLD PATCH T-DERMAL SCH (09:00)
--- NOTE | 2018-03-29 09:42 | PD.ONC.PN ---
Subjective Subjective Remarks Afebrile overnight. Patient resting in bed. Very eager to go home today. Patient much more lucid since resuming antipsychotic medications. tolerating xeloda. Objective Data Date Time Temp Pulse Resp B/P (MAP) Pulse Ox O2 Delivery O2 Flow Rate FiO2 03/29/18 04:48 97.8 96 16 123/60 (81) 98 03/29/18 01:00 98.8 82 17 110/65 (80) 95 03/28/18 19:46 98.4 86 18 113/64 (80) 100 03/28/18 16:42 98.2 95 18 106/62 (77) 98 03/28/18 13:16 98.2 76 20 124/65 (84) 99 03/29/18 03/29/18 03/29/18 07:00 15:00 23:00 Intake Total 240 ml Output Total 1350 ml Balance -1110 ml Result Diagram: 03/29/18 0603/29/18 0605 Laboratory Results Laboratory Tests Test 03/29/18 06:05 White Blood Count 7.1 TH/MM3 Red Blood Count 2.72 MIL/MM3 Hemoglobin 8.0 GM/DL Hematocrit 24.2 % Mean Corpuscular Volume 89.0 FL Mean Corpuscular Hemoglobin 29.5 PG Mean Corpuscular Hemoglobin Concent 33.2 % Red Cell Distribution Width 19.3 % Platelet Count 290 TH/MM3 Mean Platelet Volume 7.4 FL Neutrophils (%) (Auto) 77.9 % Lymphocytes (%) (Auto) 5.1 % Monocytes (%) (Auto) 16.0 % Eosinophils (%) (Auto) 0.6 % Basophils (%) (Auto) 0.4 % Neutrophils # (Auto) 5.5 TH/MM3 Lymphocytes # (Auto) 0.4 TH/MM3 Monocytes # (Auto) 1.1 TH/MM3 Eosinophils # (Auto) 0.0 TH/MM3 Basophils # (Auto) 0.0 TH/MM3 CBC Comment DIFF FINAL Differential Comment Blood Urea Nitrogen 17 MG/DL Creatinine 0.52 MG/DL Random Glucose 81 MG/DL Total Protein 6.5 GM/DL Albumin 1.8 GM/DL Calcium Level 9.5 MG/DL Alkaline Phosphatase 59 U/L Aspartate Amino Transf (AST/SGOT) 34 U/L Alanine Aminotransferase (ALT/SGPT) 12 U/L Total Bilirubin 0.2 MG/DL Sodium Level 132 MEQ/L Potassium Level 4.0 MEQ/L Chloride Level 97 MEQ/L Carbon Dioxide Level 26.2 MEQ/L Anion Gap 9 MEQ/L Estimat Glomerular Filtration Rate 176 ML/MIN Administered Medications Medications (Trade) Dose Ordered Sig/Mega Route PRN Reason Start Time Stop Time Status Last Admin Dose Admin Sodium Chloride (NS Flush) 2 ml UNSCH PRN IV FLUSH FLUSH AFTER USING IV ACCESS 03/14/18 21:00 03/15/18 06:35 Sodium Chloride (NS Flush) 2 ml BID IV FLUSH 03/14/18 21:00 03/28/18 21:12 Enoxaparin Sodium (Lovenox Inj) 40 mg Q24H SQ 03/14/18 22:00 03/28/18 21:12 Senna/Docusate Sodium (Betty-Colace) 1 tab BID PO 03/14/18 21:00 03/28/18 08:51 Sennosides (Senokot) 17.2 mg Q12H PRN PO Moderate constipation 03/14/18 21:00 03/16/18 21:17 Aripiprazole (Abilify) 5 mg DAILY PO 03/15/18 09:00 03/28/18 08:53 Famotidine (Pepcid) 20 mg Q12HR PO 03/15/18 09:00 03/28/18 21:07 Nortriptyline HCl (Pamelor) 25 mg HS PO 03/15/18 21:00 03/28/18 21:07 Propranolol HCl (Inderal) 20 mg Q12HR PO 03/15/18 09:00 03/28/18 21:07 Risperidone (risperDAL M-TAB) 3 mg Q12HR PO 03/15/18 09:00 03/28/18 21:06 Valproic Acid (Depakene) 500 mg Q8HR PO 03/14/18 22:00 03/29/18 06:29 Hydromorphone HCl (Dilaudid) 2 mg Q8H PRN PO Pain Management 1-10 03/15/18 14:45 03/28/18 19:55 Morphine Sulfate (Oramorph Sr) 15 mg BID PO 03/15/18 21:00 03/28/18 21:06 Alprazolam (Xanax) 0.5 mg Q8H PRN PO anxiety 03/15/18 15:00 03/28/18 13:14 Levothyroxine Sodium (Synthroid) 25 mcg DAILY@0600 PO 03/18/18 06:00 03/29/18 06:28 Nicotine (Habitrol 14 Mg Patch.24 Hr) 1 patch DAILY T-DERMAL 03/20/18 11:30 03/28/18 08:50 Miscellaneous Information 1 DAILY T-DERMAL 03/21/18 09:00 03/28/18 08:50 Tamsulosin HCl (Flomax) 0.4 mg DAILY PO 03/21/18 09:00 03/28/18 08:51 Hydromorphone HCl (Dilaudid Pf Inj) 1 mg DAILY PRN IV PUSH BREAKTHROUGH PAIN 03/22/18 09:00 03/28/18 13:20 Gabapentin (Neurontin) 300 mg TID PO 03/22/18 18:00 03/28/18 16:47 Patient Own Medication PT OWN MED: XEL... MoTuWeThFr@0900,2100 PO 03/28/18 21:00 03/28/18 21:04 Objective Remarks GENERAL: young man, supine in bed in nad. SKIN: Warm and dry. HEAD: Normocephalic. EYES: No injection or drainage. NECK: Supple, trachea midline. CARDIOVASCULAR: Regular rate and rhythm RESPIRATORY: anterior ray clear. GASTROINTESTINAL: soft, nontender. +colostomy bag filled with air and stool EXTREMITIES: No cyanosis MUSCULOSKELETAL: generalized muscle atrophy noted. NEUROLOGICAL: awake, alert. normal speech. Assessment/Plan Problem List: (1) Colorectal cancer ICD Codes: C19 - Malignant neoplasm of rectosigmoid junction Plan: plan to start concurrent xeloda/xrt outpatient 03/24/18. Cont chemo XRT as planned. 03/27/18. Pending XRt today. Initiate Xeloda 1500mg BID on days of xrt Start today. 03/28/18: xeloda to start today 03/29/18: continue xeloda. (2) Normocytic anemia ICD Codes: D64.9 - Anemia, unspecified Plan: --likely d/t blood loss from tumor --previously had intermittent bloody urine. --may also be component of inflammation --s/p 2 units pRBC during this hospitalization. 03/24/18. Hgb improve, no transfusion. 03/27/18. Monitor and transfuse as needed. Assessment 42y/o male with locally advanced colorectal cancer admitted with dizziness. history of schizoaffective disorder, bipolar type. h/o COPD, peripheral neuropathy, right basilic vein deep vein thromboses, locally advanced perforated rectal cancer, gluteal and pelvic abscess, status post debridement, right thigh abscess, chronic anemia. h/o laparoscopic loop colostomy, colonoscopy, rectal biopsy, irrigation and debridement right thigh split-thickness skin graft, irrigation and debridement right hip, right thigh, right knee with would closure and wound VAC placement, skin graft placement. Plan 1. continue xeloda. 2. ok to d/c 3. follow up in clinic Brunilda Nieto Mar 29, 2018 09:42
[2018-03-29] MEDS: XELODA 500 MG PO SCH (10:56)
[2018-03-29] MEDS: NICOTINE 14 MG/24 HR PATCH T-DERMAL SCH (10:57)
[2018-03-29] MEDS: GABAPENTIN 100 MG CAP PO SCH ×2 (10:58→13:59)
[2018-03-29] MEDS: PROPRANOLOL HCL 20 MG TAB PO SCH (10:58)
[2018-03-29] MEDS: DOCUSATE SODIUM 50 MG/SENNA 8.6 MG TAB PO SCH (10:58)
[2018-03-29] MEDS: risperiDONE ODT 3 MG TAB PO SCH (10:58)
[2018-03-29] MEDS: FAMOTIDINE 20 MG TAB PO SCH (10:58)
[2018-03-29] MEDS: ARIPiprazole 5 MG TAB PO SCH (10:59)
[2018-03-29] MEDS: TAMSULOSIN HCL 0.4 MG CAP PO SCH (10:59)
[2018-03-29] MEDS: MORPHINE SULFATE 15 MG CONTROLLED RELEASE TAB PO SCH (10:59)
[2018-03-29] MEDS: SODIUM CHLORIDE 0.9% FLUSH 10 ML FLUSH IV FLUSH SCH (11:00)
[2018-03-29 13:57] VITALS: RESP 16; TEMP 96.9
[2018-03-29] MEDS: ALPRAZolam 0.5 MG TAB PO PRN (13:59)
[2018-03-29] MEDS: HYDROmorphone HCL PF 2 MG/ML VIAL IV PUSH PRN (14:00)
--- NOTE | 2018-03-29 14:00 | HHI.DS ---
Discharge Summary Admission Date March 14, 2018 at 20:54 Discharge Date: Mar 29, 2018 Admitting Diagnosis pneumonia, UTI, sepsis, rectal cancer (1) Sepsis ICD Code: A41.9 - Sepsis, unspecified organism Diagnosis: Principal Status: Acute (2) UTI (urinary tract infection) ICD Code: N39.0 - Urinary tract infection, site not specified Diagnosis: Principal Status: Acute (3) Pneumonia ICD Code: J18.9 - Pneumonia, unspecified organism Diagnosis: Principal Status: Acute Procedures NONE Brief History - From Admission 42-year-old white male being admitted for weakness likely secondary to pneumonia. 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 Patient was apparently referred to the emergency department for looking very "pale" and weak after undergoing a radiation treatment session yesterday. Patient himself cannot specify exactly why he was referred. In the emergency department he was noted to have a white count around 16,000 and hemoglobin of 8.5. CT angiogram was performed of the chest which showed mild infiltrates at best in the right upper lobe suggestive of pneumonia. There are no fevers noted. Patient himself denies any nausea vomiting fevers or chills. He does report having a productive cough which is somewhat worse than usual. When I informed him that he was found to be weak, he denies being weak at all., Says he feels great in terms of his overall strength level. Discussed case with Dr. Nieves who relayed that the patient had a history where he was initially found to have pelvic abscesses that were secondary to a perforation by his rectal cancer, all found in reverse order. He has been seen by Dr. Allan from infectious disease as well as Dr. Torres from colorectal surgery, has a colostomy bag. CBC/BMP: 03/29/18 0605 03/29/18 0605 Significant Findings Laboratory Tests Test 03/27/18 18:45 03/29/18 06:05 Hemoglobin 8.9 GM/DL (13.0-17.0) 8.0 GM/DL (13.0-17.0) Hematocrit 26.7 % (39.0-51.0) 24.2 % (39.0-51.0) Red Blood Count 2.72 MIL/MM3 (4.50-5.90) Red Cell Distribution Width 19.3 % (11.6-17.2) Neutrophils (%) (Auto) 77.9 % (16.0-70.0) Lymphocytes (%) (Auto) 5.1 % (9.0-44.0) Monocytes (%) (Auto) 16.0 % (0.0-8.0) Lymphocytes # (Auto) 0.4 TH/MM3 (1.0-4.8) Monocytes # (Auto) 1.1 TH/MM3 (0-0.9) Creatinine 0.52 MG/DL (0.60-1.30) Albumin 1.8 GM/DL (3.4-5.0) Sodium Level 132 MEQ/L (136-145) Chloride Level 97 MEQ/L (98-107) PE at Discharge GENERAL: Alert, oriented to person. No acute distress. SKIN: Warm and dry. HEAD: Normocephalic. EYES: No scleral icterus. No injection or drainage. NECK: Supple, trachea midline. No JVD or lymphadenopathy. CARDIOVASCULAR: Regular rate and rhythm without murmurs, gallops, or rubs. RESPIRATORY: Breath sounds equal bilaterally. No accessory muscle use. GASTROINTESTINAL: Abdomen soft, non-tender, nondistended. MUSCULOSKELETAL: No cyanosis, or edema. BACK: Nontender without obvious deformity. No CVA tenderness. Hospital Course Mr. Price is a 42-year-old male with a history of rectal cancer in systemic physical debility. She was admitted secondary to pneumonia, UTI, and sepsis. At baseline he needs full care and his family's been caring for him including colostomy care. Patient has improved on antibiotic treatments. Antibiotic treatments are completed. Planning for placement is in process the patient requested he return back to home in the family of the patient and is agreement with this. At this point patient is medically stable and cleared for discharge to home. He will need ongoing supportive care from his family. Pt Condition on Discharge: Fair Discharge Disposition: Disch w/ Home Health Serv Discharge Time: <= 30 minutes Discharge Instructions DIET: Follow Instructions for: As Tolerated, No Restrictions Activities you can perform: Regular-No Restrictions Other Activity Instructions: Work with PT, no not exceed reasonable limitis for condition Follow up Referrals: PCP Follow-up - 2 Weeks Wound Care Clinic - 1 Week New Medications: Hospital Bed - Manual (Hospital Bed - Manual) 1 Ea Ea EA .XX DIRECTED, #1 Levothyroxine (Levothyroxine) 25 Mcg Tab 25 MCG PO DAILY@0600 for Hypothyroidism, #30 TAB Tamsulosin (Flomax) 0.4 Mg Cap 0.4 MG PO DAILY for Urinary Obstruction, #30 CAP Continued Medications: Alprazolam (Xanax) 0.5 Mg Tab 0.5 MG PO Q8H PRN for anxiety, #10 TAB Aripiprazole (Aripiprazole) 5 Mg Tab 5 MG PO DAILY for Control Seizures, #30 TAB Famotidine (Famotidine) 20 Mg Tab 20 MG PO Q12HR for Manage Heartburn, #60 TAB Gabapentin (Gabapentin) 100 Mg Cap 200 MG PO TID for Pain Management, #30 CAP Hydromorphone (Dilaudid) 2 Mg Tab 2 MG PO Q8H PRN for Pain Management, TAB 0 Refills Morphine ER (Ms Contin) 15 Mg Tab 15 MG PO BID for Pain Management, TAB 0 Refills Nortriptyline (Nortriptyline) 25 Mg Cap 25 MG PO HS for Pain Management, #30 CAP Propranolol (Propranolol) 20 Mg Tab 20 MG PO Q12HR for Blood Pressure Management, #60 TAB 0 Refills Risperidone Odt (Risperdal M-Tab) 3 Mg Tab 3 MG PO Q12HR for Control Anxiety, #20 TAB Valproic Acid (Depakene) 250 Mg Cap 500 MG PO Q8HR for Control Seizures, #90 CAP Discontinued Medications: Fluconazole (Diflucan) 200 Mg Tab 400 MG PO DAILY for Infection for 14 Days, #28 TAB 0 Refills Hydroxyzine HCl (Hydroxyzine HCl) 50 Mg Tab 50 MG PO TID for puritis MDD 150 for 30 Days, TAB 0 Refills Oxycodone-Acetaminophen (Oxycodone-Acetaminophen) 10-325 mg Tab 1 TAB PO Q6H PRN for PAIN, #60 TAB 0 Refills José Antonio Holden MD Mar 29, 2018 14:00
--- NOTE | 2018-03-29 15:08 | HHI.FF ---
Face to Face Verification Diagnosis: (1) Colorectal cancer Physical Therapy Order: Evaluate and Treat, Improve ambulation, Strength and gait training I have seen patient Bertrand Price on 03/29/18. My clinical findings support the need for the requested home health care services because: Ltd mobility - disease progression Deconditioned w/ increased weakness Limited ability to care for self High risk of falls I certify that my clinical findings support that this patient is homebound because: Unsteady gait/balance Unsafe to leave home unassisted Unable to use public transportation José Antonio Holden MD Mar 29, 2018 15:08
--- NOTE | 2018-03-29 15:11 | HHI.FF ---
Face to Face Verification Diagnosis: (1) Colorectal cancer Home Health Nursing Order: Wound care and dressing changes Instructions: Dry dressings at any open wounds, monitor for stability or improvement ( pressure wounds at right heel, right sacrum, and right thigh). No dressings needed if skin is intact. I have seen patient Bertrand rPice on 03/29/18. My clinical findings support the need for the requested home health care services because: Ltd mobility - disease progression Deconditioned w/ increased weakness Limited ability to care for self High risk of falls I certify that my clinical findings support that this patient is homebound because: Unsafe to leave home unassisted Unable to use public transportation José Antonio Holden MD Mar 29, 2018 15:11
[2018-03-29] MEDS: HYDROmorphone HCL 2 MG TAB PO PRN (17:00)
== END 2018-03-29 18:00 | disposition home health service (06) | DRG 177 ==
LOC: NEPC 16:54 → NEDA 20:54 → HCIN 23:14
PROVIDERS: ADMIT Hospitalist; ATTEND Hospitalist
PROC: 30233N1 Transfusion of Nonautologous Red Blood Cells into Peripheral Vein, Percutaneous Approach (ICD-10-PCS; principal; 2018-03-15)
DX: J69.0 Pneumonitis due to inhalation of food and vomit (principal); L89.154 Pressure ulcer of sacral region, stage 4; C79.9 Secondary malignant neoplasm of unspecified site; L89.610 Pressure ulcer of right heel, unstageable; D89.9 Disorder involving the immune mechanism, unspecified; N30.01 Acute cystitis with hematuria; C19 Malignant neoplasm of rectosigmoid junction; J44.0 Chronic obstructive pulmonary disease with (acute) lower respiratory infection; D64.9 Anemia, unspecified; K80.20 Calculus of gallbladder without cholecystitis without obstruction; F25.0 Schizoaffective disorder, bipolar type; Z93.3 Colostomy status; G89.29 Other chronic pain; M79.606 Pain in leg, unspecified; S71.101A Unspecified open wound, right thigh, initial encounter; F41.9 Anxiety disorder, unspecified; F17.210 Nicotine dependence, cigarettes, uncomplicated; N13.9 Obstructive and reflux uropathy, unspecified; Z80.1 Family history of malignant neoplasm of trachea, bronchus and lung; G62.9 Polyneuropathy, unspecified; R19.7 Diarrhea, unspecified; Z51.5 Encounter for palliative care; Z99.3 Dependence on wheelchair; F12.90 Cannabis use, unspecified, uncomplicated; Z66 Do not resuscitate; Z78.1 Physical restraint status; Z86.718 Personal history of other venous thrombosis and embolism; E03.9 Hypothyroidism, unspecified; R42 Dizziness and giddiness; R31.0 Gross hematuria; R41.840 Attention and concentration deficit; R41.0 Disorientation, unspecified; K62.89 Other specified diseases of anus and rectum; Z79.899 Other long term (current) drug therapy
CPT/HCPCS: 36430; 71045; 71275; 74176; 76937; 77014; 77387; 77412; 80053; 80164; 81001; 82550; 82565; 82728; 83010; 83036; 83540; 83550; 83605; 83615; 83735; 84100; 84439; 84443; 85014; 85018; 85025; 85044; 85610; 85730; 86850; 86900; 86901; 86920; 87040; 87086; 87449; 87493; 93005; 96361; 96365; 96375; J0456; J0692; J1170; J1650; J2270; J2543; J2765; J3370; J7030; J7050; P9016; Q9963; Q9967